=== PATIENT | female | born 1925 | race Caucasian/White ===

== ENCOUNTER 2016-05-16 13:59 | Emergency (ER) | payer BC, OTHER ==
[2016-05-16 14:32] VITALS: BMI 26.8
[2016-05-16] MEDS ORDERED: HYDROmorphone HCL 2 MG TABLET PO ONE (15:02)
[2016-05-16] MEDS ORDERED: HYDROmorphone HCL 2 MG TABLET ONE (15:02)
--- NOTE | 2016-05-16 15:02 | PDOC ---
History of Present Illness - General History Source: Patient Exam Limitations: No Limitations - History of Present Illness Initial Comments: 05/16/16 15:07 The patient is an 89 year old woman, accompanied by his daughter, with a significant past medical history hypertension, hypercholesterolemia, hypothyrodism, congestive heart failure, diabetes mellitus, end-stage renal disease (on hemodialysis on M,W,F) and recent left shoulder stent placement by Vascular Surgeon, Dr. Dino Munguia (approximately 2 weeks ago) who presents to the emergency department via EMS for evaluation of right shoulder pain. Patient states that he fell on her right shoulder, last night while reclining in her chair. She denies head injury and loss of consciousness. Patient describes her pain as sharp in nature, intermittent and exacerbated with minimal movements and tender to the touch with a 10/10 in severity. She denies experiencing any weakness/numbness/tingling sensations down her left upper extremities. No other complaints. She denies chest pain, SOB, dizziness, lightheadedness, or palpitation. She denies headache fever, chills, cough, N/V/D, visual changes, neck pain, dysuria, hematuria, frequency, bowel/bladder incontinence or retention, abdominal pain. She denies other bodily pain or injury. <Yamila Rosa - Last Filed: 05/16/16 15:48> <Telly Gonzalez - Last Filed: 05/17/16 10:07> - General Chief Complaint: Pain Stated Complaint: WEAKNESS Past History <Yamila Roas - Last Filed: 05/16/16 15:48> - Past Medical History Anemia: No Asthma: No Cancer: No Cardiac Disorders: Yes (STENT, DIFIBRILLATOR) CVA: No COPD: No CHF: Yes Dementia: No Diabetes: Yes Dialysis: Yes (M-W-F) GI Disorders: Yes (REFLUX) Disorders: Yes (esrd x 5y, low BP @ HD) HTN: Yes Hypercholesterolemia: Yes Liver Disease: No Suicide Attempt (Hx): No Seizures: No Thyroid Disease: Yes (HYPOTHYROID) - Surgical History Abdominal Surgery: Yes Appendectomy: No Cardiac Surgery: Yes (pacemaker-stent) Cholecystectomy: Yes Lung Surgery: No Neurologic Surgery: No Orthopedic Surgery: No - Immunization History Immunization Up to Date: Yes - Psycho/Social/Smoking Cessation Hx Anxiety: No Suicidal Ideation: No Smoking Status: No Smoking History: Former smoker Years of Tobacco Use: 50 Have you smoked in the past 12 months: No Number of Cigarettes Smoked Daily: 0 If you are a former smoker, when did you quit?: 16 YRS Information on smoking cessation initiated: No Hx Alcohol Use: No Drug/Substance Use Hx: No Substance Use Type: None Hx Substance Use Treatment: No <Telly Gonzalez - Last Filed: 05/17/16 10:07> - Past Medical History Allergies/Adverse Reactions: Allergies Allergy/AdvReac Type Severity Reaction Status Date / Time codeine [Codeine] Allergy Mild Itching Verified 05/16/16 14:26 oxycodone HCl [From Percocet] Allergy Verified 05/16/16 14:26 Home Medications: Ambulatory Orders Levothyroxine [Synthroid -] 100 mcg PO DAILY 10/11/12 Sertraline HCl [Zoloft -] 50 mg PO DAILY 10/11/12 Sevelamer Carbonate [Renvela -] 3 tab PO TID 10/11/12 Pregabalin [Lyrica] 75 mg PO DAILY #0 capsule 02/27/13 Metoprolol Succinate [Toprol XL -] 50 mg PO ASDIR 03/09/15 Midodrine HCl 10 mg PO HS 03/09/15 Acetaminophen [Tylenol .Regular Strength -] 650 mg PO Q6H PRN #0 tablet Midodrine HCl 20 mg PO AM 03/20/16 Multivitamin/Iron/Folic Acid [Daily Vit Formula + Iron Tab] 1 each PO DAILY 10/28 Pantoprazole Sodium [Protonix -] 40 mg PO DAILY #30 tablet.ec 03/23/16 Simethicone [Mylicon -] 80 mg PO Q4H PRN #60 tab.chew 03/23/16 Trauma Specific PMHX - Complaint Specific PMHX Arthritis: No <Telly Gonzalez - Last Filed: 05/17/16 10:07> Review of Systems - Review of Systems Able to Perform ROS?: Yes Comments:: 05/16/16 15:07 GENERAL/CONSTITUTIONAL: No fever or chills. No weakness. HEAD, EYES, EARS, NOSE AND THROAT: No change in vision. No ear pain or discharge. No sore throat. CARDIOVASCULAR: No chest pain or shortness of breath. RESPIRATORY: No cough, wheezing, or hemoptysis. GASTROINTESTINAL: No nausea, vomiting, diarrhea or constipation. GENITOURINARY: No dysuria, frequency, or change in urination. MUSCULOSKELETAL: Yes: +Left shoulder/arm pain. No neck or back pain. SKIN: No rash NEUROLOGIC: No headache, vertigo, loss of consciousness, or change in strength/ sensation. ENDOCRINE: No increased thirst. No abnormal weight change. HEMATOLOGIC/LYMPHATIC: No anemia, easy bleeding, or history of blood clots. ALLERGIC/IMMUNOLOGIC: No hives or skin allergy. <Yamila Rosa - Last Filed: 05/16/16 15:48> *Physical Exam - Vital Signs Last Vital Signs Temp Pulse Resp BP Pulse Ox 98.7 F 83 20 144/70 100 05/16/16 14:22 05/16/16 14:22 05/16/16 14:22 05/16/16 14:22 05/16/16 14:22 - Physical Exam Comments: 05/16/16 15:07 GENERAL: Awake, alert, and fully oriented, in no acute distress HEAD: No signs of trauma EYES: PERRLA, EOMI, sclera anicteric, conjunctiva clear ENT: Auricles normal inspection, hearing grossly normal, nares patent, oropharynx clear without exudates. Moist mucosa NECK: Normal ROM, supple, no lymphadenopathy, JVD, or masses LUNGS: Breath sounds equal, clear to auscultation bilaterally. No wheezes, and no crackles HEART: Regular rate and rhythm, normal S1 and S2, no murmurs, rubs or gallops ABDOMEN: Soft, nontender, normoactive bowel sounds. No guarding, no rebound. No masses EXTREMITIES: Normal range of motion, no edema. No clubbing or cyanosis. No cords, erythema, or tenderness NEUROLOGICAL: Cranial nerves II through XII grossly intact. Normal speech <Yamila Rosa - Last Filed: 05/16/16 15:48> - Vital Signs Last Vital Signs Temp Pulse Resp BP Pulse Ox 98.7 F 83 20 144/70 100 05/16/16 14:22 05/16/16 14:22 05/16/16 14:22 05/16/16 14:22 05/16/16 14:22 <Telly Gonzalez - Last Filed: 05/17/16 10:07> ED Treatment Course - RADIOLOGY Radiograph Interpretation: 05/16/16 15:47 EXAM: RAD/SHOULDER-W/TRANS-LEFT IMPRESSION: Views reveal a left axillary vascular graft/stent, large heart, unfolded aorta and coarse lung changes. There is no sign of an acute fracture, subluxation or bone destruction. There is old trauma by the AC joint. The fragments appear well corticated. If symptoms persist or there is decreased range of motion then further imaging and orthopedic consultation may be of help. <Yamila Rosa - Last Filed: 05/16/16 15:48> *DC/Admit/Observation/Transfer - Attestations Scribe Attestion: 05/16/16 15:07 Documentation prepared by Yamila Rosa, acting as rn medical surgical for Telly Gonzalez MD. <Yamila Rosa - Last Filed: 05/16/16 15:48> - Discharge Dispostion Admit: No <Telly Gonzalez - Last Filed: 05/17/16 10:07> Diagnosis at time of Disposition: Left shoulder pain Qualifiers: Chronicity: acute Qualified Code(s): M25.512 - Pain in left shoulder Tear of left rotator cuff Qualifiers: Rotator cuff tear extent: unspecified tear extent Qualified Code(s): M75.102 - Unspecified rotator cuff tear or rupture of left shoulder, not specified as traumatic - Discharge Dispostion Disposition: HOME Condition at time of disposition: Stable - Referrals Referrals: Aung Mondragon MD [Primary Care Provider] - - Patient Instructions Printed Discharge Instructions: DI for Shoulder Pain Additional Instructions: Follow up Dr. Munguia tomorrow for shunt evaluation, will refer to an Orthopedist..
--- NOTE | 2016-05-16 20:25 | PDOC ---
*Physical Exam - Vital Signs Last Vital Signs Temp Pulse Resp BP Pulse Ox 98.7 F 83 20 144/70 100 05/16/16 14:22 05/16/16 14:22 05/16/16 14:22 05/16/16 14:22 05/16/16 14:22 ED Treatment Course - Medications Given in the ED: ED Medications Discontinued Medications Generic Name Dose Route Start Last Admin Trade Name Ldq PRN Reason Stop Dose Admin Hydromorphone HCl 1 mg 05/16/16 15:02 05/16/16 15:20 Dilaudid - PO 05/16/16 15:03 1 mg ONCE ONE Administration *DC/Admit/Observation/Transfer Diagnosis at time of Disposition: Left shoulder pain Qualifiers: Chronicity: acute Qualified Code(s): M25.512 - Pain in left shoulder - Discharge Dispostion Disposition: HOME Condition at time of disposition: Stable Admit: No - Referrals Referrals: Aung Mondragon MD [Primary Care Provider] - - Patient Instructions Printed Discharge Instructions: DI for Shoulder Pain - Post Discharge Activity
[2016-05-16 20:34] VITALS: BP 132/80; PULSE 87; TEMP 98.3
== END 2016-05-16 20:34 | disposition home or self-care (01) ==
LOC: JER 13:59
DX: M75.102 Unspecified rotator cuff tear or rupture of left shoulder, not specified as traumatic (principal); W07.XXXA Fall from chair, initial encounter; I10 Essential (primary) hypertension; E78.00 Pure hypercholesterolemia, unspecified; E03.9 Hypothyroidism, unspecified; I13.2 Hypertensive heart and chronic kidney disease with heart failure and with stage 5 chronic kidney disease, or end stage renal disease; N18.6 End stage renal disease; I50.9 Heart failure, unspecified; N17.8 Other acute kidney failure; Z99.2 Dependence on renal dialysis; E11.9 Type 2 diabetes mellitus without complications; Z79.84 Long term (current) use of oral hypoglycemic drugs; Z95.5 Presence of coronary angioplasty implant and graft; Z95.810 Presence of automatic (implantable) cardiac defibrillator; Z98.62 Peripheral vascular angioplasty status
CPT/HCPCS: 73030-TC-LT; 93971; 99283-25

== ENCOUNTER 2016-07-11 09:31 | Emergency (ER) | payer OTHER ==
[2016-07-11 09:38] VITALS: BP 122/75; PULSE 108; TEMP 98.6; BMI 26.4
--- NOTE | 2016-07-11 09:52 | PDOC ---
History of Present Illness - General History Source: Patient Exam Limitations: No Limitations - History of Present Illness Initial Comments: 07/11/16 09:52 Patient is a 89 year old female with pmhx of HTN, HLD, ESRD (on HD MWF) who presents to the ED with nasal congestion for 1 week and cough for 3 days. She reports fever since . Patient notes that the cough is exacerbated when lying down. She notes that her HD doctor saw her on Monday and prescribed her Anarythromiosin syrup for the cough that provided mild relief. <Jannette Pittman - Last Filed: 07/11/16 09:52> <Billy Adrian - Last Filed: 07/11/16 10:12> - General Chief Complaint: Shortness of Breath Stated Complaint: CONGESTED, DIZZINESS Time Seen by Provider: 07/11/16 09:43 Past History <Jannette Pittman - Last Filed: 07/11/16 09:52> - Past Medical History Anemia: No Asthma: No Cancer: No Cardiac Disorders: Yes (STENT, DIFIBRILLATOR) CVA: No COPD: No CHF: Yes Dementia: No Diabetes: Yes Dialysis: Yes (M-W-F lt arm fistula) GI Disorders: Yes (REFLUX) Disorders: Yes (esrd x 5y, low BP @ HD) HTN: Yes Hypercholesterolemia: Yes Liver Disease: No Suicide Attempt (Hx): No Seizures: No Thyroid Disease: Yes (HYPOTHYROID) - Surgical History Abdominal Surgery: Yes Appendectomy: No Cardiac Surgery: Yes (pacemaker-stent) Cholecystectomy: Yes Lung Surgery: No Neurologic Surgery: No Orthopedic Surgery: No - Immunization History Immunization Up to Date: Yes - Psycho/Social/Smoking Cessation Hx Anxiety: No Suicidal Ideation: No Smoking Status: No Smoking History: Former smoker Years of Tobacco Use: 50 Have you smoked in the past 12 months: No Number of Cigarettes Smoked Daily: 0 If you are a former smoker, when did you quit?: 16 YRS Information on smoking cessation initiated: No Hx Alcohol Use: No Drug/Substance Use Hx: No Substance Use Type: None Hx Substance Use Treatment: No <Billy Adrian - Last Filed: 07/11/16 10:12> - Past Medical History Allergies/Adverse Reactions: Allergies Allergy/AdvReac Type Severity Reaction Status Date / Time codeine [Codeine] Allergy Mild Itching Verified 07/11/16 09:32 oxycodone HCl [From Percocet] Allergy Verified 07/11/16 09:32 Home Medications: Ambulatory Orders Levothyroxine [Synthroid -] 100 mcg PO DAILY 10/11/12 Sertraline HCl [Zoloft -] 50 mg PO DAILY 10/11/12 Sevelamer Carbonate [Renvela -] 3 tab PO TID 10/11/12 Pregabalin [Lyrica] 75 mg PO DAILY #0 capsule 02/27/13 Metoprolol Succinate [Toprol XL -] 50 mg PO ASDIR 03/09/15 Midodrine HCl 10 mg PO HS 03/09/15 Acetaminophen [Tylenol .Regular Strength -] 650 mg PO Q6H PRN #0 tablet Midodrine HCl 20 mg PO AM 03/20/16 Multivitamin/Iron/Folic Acid [Daily Vitamin Formula-Iron Tab] 1 each PO DAILY Pantoprazole Sodium [Protonix -] 40 mg PO DAILY #30 tablet.ec 03/23/16 Simethicone [Mylicon -] 80 mg PO Q4H PRN #60 tab.chew 03/23/16 Respiratory Specific PMHX - Complaint Specific PMHX Angina: No <Billy Adrian - Last Filed: 07/11/16 10:12> Review of Systems - Review of Systems Able to Perform ROS?: Yes Comments:: 07/11/16 09:53 General: +fever HEENT: +nasal congestion Absent: runny nose, throat pain Respiratory: +cough Absent: wheezing, SOB <Jannette Pittman - Last Filed: 07/11/16 09:52> *Physical Exam - Vital Signs Last Vital Signs Temp Pulse Resp BP Pulse Ox 98.6 F 108 H 24 122/75 95 07/11/16 09:33 07/11/16 09:33 07/11/16 09:33 07/11/16 09:33 07/11/16 09:33 <Jannette Pittman - Last Filed: 07/11/16 09:52> - Vital Signs Last Vital Signs Temp Pulse Resp BP Pulse Ox 98.6 F 108 H 24 122/75 95 07/11/16 09:33 07/11/16 09:33 07/11/16 09:33 07/11/16 09:33 07/11/16 09:33 - Physical Exam General Appearance: Yes: Nourished, Appropriately Dressed. No: Apparent Distress HEENT: positive: Normal ENT Inspection. negative: Nasal Congestion, Rhinorrhea Neck: positive: Supple. negative: Tender Respiratory/Chest: positive: Lungs Clear (good b/l air entry), Rhonchi. negative: Chest Tender, Respiratory Distress, Accessory Muscle Use Cardiovascular: positive: Regular Rhythm, Regular Rate, Tachycardia Gastrointestinal/Abdominal: positive: Normal Bowel Sounds, Soft Neurologic: positive: Fully Oriented, Alert, Normal Mood/Affect, Normal Response , Motor Strength 5/5 <Billy Adrian - Last Filed: 07/11/16 10:12> ED Treatment Course - RADIOLOGY Radiology Studies Ordered: Category Date Time Status CHEST PA & LAT [RAD] Stat Radiology 07/11/16 09:47 Ordered <Billy Adrian - Last Filed: 07/11/16 10:12> Progress Note - Progress Note Progress Note: post viral syndrome cough cxr symptomatic treatment cxr no i/e or pvc d/c home <Billy Adrian - Last Filed: 07/11/16 10:12> *DC/Admit/Observation/Transfer - Attestations Scribe Attestion: 07/11/16 09:53 Documentation prepared by FÉLIX Foote, acting as medical payment poster for Billy Adrian MD/. <Jannette Pittman - Last Filed: 07/11/16 09:52> <Billy Adrian - Last Filed: 07/11/16 10:12> Diagnosis at time of Disposition: Post-viral cough syndrome - Discharge Dispostion Disposition: HOME Condition at time of disposition: Stable - Patient Instructions Additional Instructions: CONTINUE MEDICATIONS PRESCRIBED BENADRYL 25 MG AT BED TIME COLD MIST HUMIDIFIER A BED SIDE CONTINUE DIALYSIS PLANNED SEE YOUR DOCTOR THIS WEEK RETURN IF WORSENING OR NEW SYMPTOMS
[2016-07-12] MEDS ORDERED: HEPARIN NA (PORCINE) 5,000 UNITS/ML 1ML VIAL SQ SCH (22:00)
== END 2016-07-11 10:36 | disposition home or self-care (01) ==
LOC: JER 09:31
DX: B34.9 Viral infection, unspecified (principal); I25.10 Atherosclerotic heart disease of native coronary artery without angina pectoris; I12.0 Hypertensive chronic kidney disease with stage 5 chronic kidney disease or end stage renal disease; N18.6 End stage renal disease; N17.8 Other acute kidney failure; Z99.2 Dependence on renal dialysis; Z95.5 Presence of coronary angioplasty implant and graft; E11.9 Type 2 diabetes mellitus without complications; E03.9 Hypothyroidism, unspecified; E78.00 Pure hypercholesterolemia, unspecified; Z95.810 Presence of automatic (implantable) cardiac defibrillator
CPT/HCPCS: 71010-TC; 99282-25

== ENCOUNTER 2016-07-11 19:31 | Inpatient (IN) | payer OTHER ==
--- NOTE | 2016-07-11 20:41 | PDOC ---
History of Present Illness <Nahomy Meredith - Last Filed: 07/11/16 22:56> - History of Present Illness Initial Comments: 07/11/16 20:43 Patient is a 89 year old female with pmhx of CHF, HTN, HLD, ESRD (on HD MWF) who has returned to the ED from this morning with persistent cough. Patient was seen in the ED at 10AM this morning for fever, nasal congestion, and cough for the past three days. The patient was discharged and she returned because her cough has been persisting. She also endorses some muscle aches. The patient was found febrile at 100.8 in the ED. Denies nausea, vomiting, diarrhea, and chest pain. The patient saw her primary four days ago and was given anarythromiosin syrup which provided some relief. PMD: Aung Mondragon MD City Comptroller: Shelli Bacon MD Supervisor [place]ble: Ayesha Kamara MD <Yuki Damico - Last Filed: 07/11/16 23:35> - General Chief Complaint: Shortness of Breath Stated Complaint: SHORTNESS OF BREATH Time Seen by Provider: 07/11/16 19:55 Past History - Past Medical History Anemia: No Asthma: No Cancer: No Cardiac Disorders: Yes (STENT, DIFIBRILLATOR) CVA: No COPD: No CHF: Yes Dementia: No Diabetes: Yes Dialysis: Yes (M-W-F lt arm fistula) GI Disorders: Yes (REFLUX) Disorders: Yes (esrd x 5y, low BP @ HD) HTN: Yes Hypercholesterolemia: Yes Liver Disease: No Suicide Attempt (Hx): No Seizures: No Thyroid Disease: Yes (HYPOTHYROID) - Surgical History Abdominal Surgery: Yes Appendectomy: No Cardiac Surgery: Yes (pacemaker-stent) Cholecystectomy: Yes Lung Surgery: No Neurologic Surgery: No Orthopedic Surgery: No - Immunization History Immunization Up to Date: Yes - Psycho/Social/Smoking Cessation Hx Anxiety: No Suicidal Ideation: No Smoking Status: No Smoking History: Former smoker Years of Tobacco Use: 50 Have you smoked in the past 12 months: No Number of Cigarettes Smoked Daily: 0 If you are a former smoker, when did you quit?: 25 years Information on smoking cessation initiated: No Hx Alcohol Use: No Drug/Substance Use Hx: No Substance Use Type: None Hx Substance Use Treatment: No <Nahomy Meredith - Last Filed: 07/11/16 22:56> <MargauxYuki jimenez - Last Filed: 07/11/16 23:35> - Past Medical History Allergies/Adverse Reactions: Allergies Allergy/AdvReac Type Severity Reaction Status Date / Time codeine [Codeine] Allergy Mild Itching Verified 07/11/16 09:32 oxycodone HCl [From Percocet] Allergy Verified 07/11/16 09:32 Home Medications: Ambulatory Orders Levothyroxine [Synthroid -] 100 mcg PO DAILY 10/11/12 Sertraline HCl [Zoloft -] 50 mg PO DAILY 10/11/12 Sevelamer Carbonate [Renvela -] 3 tab PO TID 10/11/12 Pregabalin [Lyrica] 75 mg PO DAILY #0 capsule 02/27/13 Metoprolol Succinate [Toprol XL -] 50 mg PO ASDIR 03/09/15 Midodrine HCl 10 mg PO HS 03/09/15 Acetaminophen [Tylenol .Regular Strength -] 650 mg PO Q6H PRN #0 tablet Midodrine HCl 20 mg PO AM 03/20/16 Multivitamin/Iron/Folic Acid [Daily Vitamin Formula-Iron Tab] 1 each PO DAILY Pantoprazole Sodium [Protonix -] 40 mg PO DAILY #30 tablet.ec 03/23/16 Simethicone [Mylicon -] 80 mg PO Q4H PRN #60 tab.chew 03/23/16 Respiratory Specific PMHX - Complaint Specific PMHX Angina: No <MasoudAjaypam Machadoh - Last Filed: 07/11/16 22:56> Review of Systems - Review of Systems Comments:: 07/11/16 20:46 CONSTITUTIONAL: Present: fever Absent: chills, diaphoresis, generalized weakness, malaise, loss of appetite HEENT: Present: rhinorrhea nasal congestion Absent: throat pain, throat swelling, difficulty swallowing, mouth swelling, ear pain, eye pain, visual changes CARDIOVASCULAR: Absent: chest pain, syncope, palpitations, irregular heart rate, lightheadedness , peripheral edema RESPIRATORY: Present: cough Absent: shortness of breath, dyspnea with exertion, orthopnea, wheezing, stridor , hemoptysis GASTROINTESTINAL: Absent: abdominal pain, abdominal distension, nausea, vomiting, diarrhea, constipation, melena, hematochezia GENITOURINARY: Absent: dysuria, frequency, urgency, hesitancy, hematuria, flank pain, genital pain MUSCULOSKELETAL: Absent: myalgia, arthralgia, joint swelling SKIN: Absent: rash, itching, pallor HEMATOLOGIC/IMMUNOLOGIC: Absent: easy bleeding, easy bruising, lymphadenopathy, frequent infections ENDOCRINE: Absent: unexplained weight gain, unexplained weight loss, heat intolerance, cold intolerance NEUROLOGIC: Absent: headache, focal weakness or paresthesia, dizziness, unsteady gait, seizure, mental status changes, bladder or bowel incontinence. PSYCHIATRIC: Absent: anxiety, depression, suicidal or homicidal ideation, hallucinations <Yuki Damico - Last Filed: 07/11/16 23:35> *Physical Exam - Vital Signs Last Vital Signs Temp Pulse Resp BP Pulse Ox 100.8 F H 98 H 24 123/87 100 07/11/16 19:51 07/11/16 19:51 07/11/16 19:51 07/11/16 19:51 07/11/16 20:38 <Nahomy Meredith - Last Filed: 07/11/16 22:56> - Vital Signs Last Vital Signs Temp Pulse Resp BP Pulse Ox 100.8 F H 98 H 24 123/87 100 07/11/16 19:51 07/11/16 19:51 07/11/16 19:51 07/11/16 19:51 07/11/16 20:38 - Physical Exam Comments: 07/11/16 20:49 GENERAL: Well developed, well nourished. Awake and alert. No acute distress. HEENT: Normocephalic, atraumatic. PERRLA, EOMI. No conjunctival pallor. Sclera are non- icteric. Moist mucous membranes. Oropharynx is clear. NECK: Supple. Full ROM. No JVD. Carotid pulses 2+ and symmetric, without bruits. No thyromegaly. No lymphadenopathy. CARDIOVASCULAR: Regular rate and rhythm. No murmurs, rubs, or gallops. Distal pulses are 2+ and symmetric. PULMONARY: No evidence of respiratory distress. Rhonchorous breath sounds. No wheezing or rales. ABDOMINAL: Soft. Non-tender. Non-distended. No rebound or guarding. No organomegaly. Normoactive bowel sounds. MUSCULOSKELETAL: Normal range of motion at all joints. No bony deformities or tenderness. No CVA tenderness. EXTREMITIES: No cyanosis. No clubbing. No edema. No calf tenderness. SKIN: Warm and dry. Normal capillary refill. No rashes. No jaundice. NEUROLOGICAL: Alert, awake, appropriate. Cranial nerves 2-12 intact. Normal speech. PSYCHIATRIC: Cooperative. Good eye contact. Appropriate mood and affect. <Yuki Damico - Last Filed: 07/11/16 23:35> Heart Score/ECG Review #1 07/11/16 23:33 Sinus rhythm with 1st degree AV block with occasional premature ventricular complexes Left ventricular hypertrophy with repolarization abnormality Cannot rule out Septal infarct, age undetermined Abnormal ECG <Yuki Damico - Last Filed: 07/11/16 23:35> ED Treatment Course - LABORATORY CBC & Chemistry Diagram: 07/11/16 20:46 07/11/16 20:46 <Nahomy Meredith - Last Filed: 07/11/16 22:56> - LABORATORY CBC & Chemistry Diagram: 07/11/16 20:46 07/11/16 20:46 <Yuki Damico - Last Filed: 07/11/16 23:35> Medical Decision Making - Medical Decision Making 07/11/16 22:57 89 yo female seen earlier today for cough,nasal congestion and fever was BIBA after her dialysis for weakness ,fever and cough. Pt was hypoxic saturating only at 88% room air . Fever 100.8 -influenza A POSITIVE -pt placed on 3 L nasal cannula -she did complete her dialysis session,review of her chemistry shows potassium is normal -pt has copious phlegm and persistent coughing and appears uncomfortable -spoke w Dr Dariela Bacon and pt will be admitted due to her need for oxygen supplantation -pt started on tamiflu <Nahomy Meredith - Last Filed: 07/11/16 22:56> *DC/Admit/Observation/Transfer - Discharge Dispostion Admit: Yes <Nahomy Meredith - Last Filed: 07/11/16 22:56> - Attestations Scribe Attestion: 07/11/16 20:51 Documentation prepared by Yuki Damico, acting as medical records field technician for Nahomy Meredith MD. <Yuki Damico - Last Filed: 07/11/16 23:35> Diagnosis at time of Disposition: ESRD on hemodialysis, Troponin level elevated, Influenza A, Hypoxic Fever Qualifiers: Fever type: other Qualified Code(s): R50.81 - Fever presenting with conditions classified elsewhere - Referrals Referrals: Aung Mondragon MD [Primary Care Provider] -
[2016-07-11 21:24] LABS: BASOPHIL 0.3 % (0-2.0); MEAN CELL VOLUME 90.7 fl (80-96); MEAN PLT VOLUME 9.8 fl (7.5-11.1); NEUTROPHILS 86.2 % (42.8-82.8); PLATELET COUNT 94 K/MM3 (134-434); RDW 15.1 % (11.6-15.6); WHITE BLOOD COUNT 5.5 K/mm3 (4.0-10.0)
[2016-07-11 21:50] LABS: ALBUMIN 3.6 g/dl (3.4-5.0); BILIRUBIN,TOTAL 0.6 mg/dL (0.2-1.0); TOT PROT 7.4 g/dl (6.4-8.2)
[2016-07-11] MEDS ORDERED: OSELTAMIVIR PHOSPHATE 75 MG CAPSULE PO ONE (21:51)
[2016-07-11 21:53] LABS: TROPONIN I 0.18 ng/ml (0.00-0.05)
[2016-07-11] MEDS ORDERED: OSELTAMIVIR PHOSPHATE 75 MG CAPSULE ONE (22:02)
[2016-07-11] MEDS ORDERED: SIMETHICONE 80 MG TAB.CHEW (FP) PO PRN (23:32)
[2016-07-12] MEDS ORDERED: SEVELAMER CARBONATE 800 MG TAB (FP) PO SCH (06:00)
[2016-07-12] MEDS ORDERED: ALBUTEROL SO4 2.5/IPRATROPIUM 0.5 INH SOL 3 ML VIAL.NEB. NEB ONE (06:53)
[2016-07-12] MEDS: ALBUTEROL SO4 2.5/IPRATROPIUM 0.5 INH SOL 3 ML VIAL.NEB. NEB PRN (06:56)
[2016-07-12] MEDS ORDERED: LEVOTHYROXINE NA 100 MCG TABLET (FP) PO SCH (07:00)
--- NOTE | 2016-07-12 09:09 | HP ---
Admitting History and Physical - Primary Care Physician PCP: Aung Mondragon - Admission Chief Complaint: cough and sob History of Present Illness: 89 yrs old female known by me from her previous admissions here admitted for SOB and cough for about 1 week- had chills and cough productive of greenish sputum. She went to the ER yesterday morning and was discharged on cough syrup after CXR appeared to be clear . But she felt worse and returned back to the ER , had a low grade fever and found to be positive for Influenza A. She has h/o ESRD on HD-- denies sick contacts. 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: Peripheral Neuropathy Cardiovascular: Yes: CAD, CHF, HTN, Hyperlipdemia, Other (S/P PCI/stent, chronic diastolic CHF) Gastrointestinal: Yes: Constipation, Gastritis, GERD, Peptic Ulcer Disease Renal/: Yes: Renal Failure, Hemodialysis Heme/Onc: Yes: Anemia Musculoskeletal: Yes: Osteoarthritis Endocrine: Yes: Diabetes Mellitus, Hypothyroidism - Past Surgical History Past Surgical History: Yes: AICD, AV Fistula/Graft, Cholecystectomy, Stent - Smoking History Smoking history: Former smoker Have you smoked in the past 12 months: No Aproximately how many cigarettes per day: 0 If you are a former smoker, when did you quit?: 25 years - Alcohol/Substance Use Hx Alcohol Use: No History of Substance Use: reports: None - Social History ADL: Independent 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 History of Recent Travel: No Home Medications - Allergies Allergies/Adverse Reactions: Allergies Allergy/AdvReac Type Severity Reaction Status Date / Time codeine [Codeine] Allergy Mild Itching Verified 07/11/16 09:32 oxycodone HCl [From Percocet] Allergy Verified 07/11/16 09:32 - Home Medications Home Medications: Ambulatory Orders Levothyroxine [Synthroid -] 100 mcg PO DAILY 10/11/12 Sevelamer Carbonate [Renvela -] 3 tab PO TID 10/11/12 Pregabalin [Lyrica] 75 mg PO DAILY #0 capsule 02/27/13 Metoprolol Succinate [Toprol XL -] 50 mg PO ASDIR 03/09/15 Acetaminophen [Tylenol .Regular Strength -] 650 mg PO Q6H PRN #0 tablet Midodrine HCl 20 mg PO AM 03/20/16 Multivitamin/Iron/Folic Acid [Daily Vitamin Formula-Iron Tab] 1 each PO DAILY Pantoprazole Sodium [Protonix -] 40 mg PO DAILY #30 tablet.ec 03/23/16 Simethicone [Mylicon -] 80 mg PO Q4H PRN #60 tab.chew 03/23/16 Midodrine HCl 10 mg PO HS 07/12/16 Sertraline HCl [Zoloft -] 50 mg PO DAILY 07/12/16 Review of Systems - Review of Systems Constitutional: reports: Chills, Fever, Weakness. denies: Loss of Appetite Cardiovascular: reports: Shortness of Breath. denies: Chest Pain Respiratory: reports: Cough Physical Examination Vital Signs: Vital Signs Temperature 97.5 F L 07/12/16 07:40 Pulse Rate 75 07/12/16 07:40 Respiratory Rate 16 07/12/16 07:40 Blood Pressure 101/57 07/12/16 07:40 O2 Sat by Pulse Oximetry (%) 99 07/12/16 08:27 Constitutional: Yes: No Distress, Calm Cardiovascular: Yes: Regular Rate and Rhythm Respiratory: Yes: Diminished, Rhonchi Gastrointestinal: Yes: Normal Bowel Sounds, Soft. No: Distention, Tenderness Edema: No Psychiatric: Yes: Alert, Oriented Labs: Laboratory Results - last 24 hr 07/11/16 07/11/16 07/11/16 20:46 20:46 20:46 WBC 5.5 RBC 3.71 Hgb 11.1 Hct 33.6 MCV 90.7 MCHC 33.0 RDW 15.1 D Plt Count 94 L MPV 9.8 Neutrophils % 86.2 H D Lymphocytes % 5.6 L D Monocytes % 7.9 Eosinophils % 0.0 D Basophils % 0.3 Sodium 139 Potassium 4.3 Chloride 101 Carbon Dioxide 27 Anion Gap 11 BUN 41 H D Creatinine 5.0 H D Creat Clearance w eGFR 8.17 Random Glucose 162 H D Lactic Acid Calcium 9.0 Total Bilirubin 0.6 AST 40 H ALT 35 Alkaline Phosphatase 253 H Creatine Kinase 59 Troponin I 0.18 H Total Protein 7.4 Albumin 3.6 07/11/16 07/12/16 21:40 11:35 WBC RBC Hgb Hct MCV MCHC RDW Plt Count MPV Neutrophils % Lymphocytes % Monocytes % Eosinophils % Basophils % Sodium Potassium Chloride Carbon Dioxide Anion Gap BUN Creatinine Creat Clearance w eGFR Random Glucose Lactic Acid 1.394 Calcium Total Bilirubin AST ALT Alkaline Phosphatase Creatine Kinase 55 Troponin I 0.16 H Total Protein Albumin Imaging - Results Chest X-ray: Image Reviewed EKG: Image Reviewed (NSR) Problem List - Problems (1) ESRD on hemodialysis Code(s): N18.6 - END STAGE RENAL DISEASE Z99.2 - DEPENDENCE ON RENAL DIALYSIS (2) Fever Code(s): R50.9 - FEVER, UNSPECIFIED Qualifiers: Fever type: other Qualified Code(s): R50.81 - Fever presenting with conditions classified elsewhere (3) Influenza A Code(s): J10.1 - FLU DUE TO OTH IDENT INFLUENZA VIRUS W OTH RESP MANIFEST (4) Troponin level elevated Code(s): R79.89 - OTHER SPECIFIED ABNORMAL FINDINGS OF BLOOD CHEMISTRY Assessment/Plan PLAN Pt started on Tamiflu -renal dose Nebs standing Elevated troponins due to renal disease, denies any chest pain Pt's O2 sat was initially 90 % on room air and came up to 96% on 3 liters. Continue with meds DVT prophylaxis - Heparin sc
[2016-07-12] MEDS: MIDODRINE HCL 5 MG TABLET PO SCH ×2 (09:51→21:46)
[2016-07-12] MEDS: PANTOPRAZOLE 40 MG TABLET (FP) PO SCH (09:52)
[2016-07-12] MEDS: SERTRALINE HCL 50 MG TABLET (FP) PO SCH (09:52)
[2016-07-12] MEDS ORDERED: guaiFENesin 200 MG/10 ML 10 ML UNIT-DOSE CUPS ONE ×2 (09:57→17:32)
[2016-07-12] MEDS ORDERED: PREGABALIN 50 MG CAPSULE ONE (09:58)
[2016-07-12] MEDS ORDERED: PREGABALIN 25 MG CAPSULE ONE (09:58)
[2016-07-12] MEDS ORDERED: OSELTAMIVIR PHOSPHATE 30 MG CAPSULE PO SCH (10:00)
[2016-07-12] MEDS: guaiFENesin 200 MG/10 ML 10 ML UNIT-DOSE CUPS PO PRN ×2 (10:03→17:35)
[2016-07-12] MEDS: PREGABALIN 25 MG CAPSULE PO SCH (10:03)
[2016-07-12] MEDS: METOPROLOL SUCCINATE 50 MG TAB.SR.24H (FP) PO SCH (10:03)
[2016-07-12 11:20] VITALS: BMI 26.4
[2016-07-12 12:12] LABS: TROPONIN I 0.16 ng/ml (0.00-0.05)
[2016-07-12] MEDS: SEVELAMER CARBONATE 800 MG TAB (FP) PO SCH ×2 (12:26→17:35)
--- NOTE | 2016-07-12 12:58 | CONSULT ---
Consult Consult Specialty:: Infectious Disease Referred by:: Dr. Milian Reason for Consultation:: Influenza A - History of Present Illness Chief Complaint: [facility] shortness of breath weakness History of Present Illness: 89F with extensive PMH including CAD s/p stent and PPM, diastolic CHF ESRD on HD MWF HTN HLD hypothyroidism former smoker who presented to the ED yesterday morning for cough and shortness of breath. She was worked up and subsequently discharged from the ED. She then went to dialysis and was sent here from the dialysis center for worsening cough and weakness associated with shortness of breath. She was found to be positive for influenza A on nasal swab. She denies fevers but had a low grade fever of 100.8 in the ED. She endorses cough chills shortness of breath weakness and muscle aches. Her symptoms started about a week ago. She initially had a productive cough with dark yellow sputum but now no longer has any sputum production. She denies chest pain nausea vomiting diarrhea constipation hematuria or dysuria. She does not have any pet nor has she traveled recently. She denies sick contacts and lives at home alone. She states she did have her flu vaccination. 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: Yes: Peripheral Neuropathy Cardio/Vascular: Yes: CAD, CHF, HTN, Hyperlipdemia, Other (S/P PCI/stent, chronic diastolic CHF) Gastrointestinal: Yes: Constipation, Gastritis, GERD, Peptic Ulcer Disease Renal/: Yes: Renal Failure, Hemodialysis Musculoskeletal: Yes: Osteoarthritis Endocrine: Yes: Diabetes Mellitus, Hypothyroidism - Past Surgical History Past Surgical History: Yes: AICD, AV Fistula/Graft, Cholecystectomy, Stent - Alcohol/Substance Use Hx Alcohol Use: No History of Substance Use: reports: None - Smoking History Smoking history: Former smoker Have you smoked in the past 12 months: No Aproximately how many cigarettes per day: 0 If you are a former smoker, when did you quit?: 25 years - Social History ADL: Independent 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 History of Recent Travel: No Home Medications - Allergies Allergies/Adverse Reactions: Allergies Allergy/AdvReac Type Severity Reaction Status Date / Time codeine [Codeine] Allergy Mild Itching Verified 07/11/16 09:32 oxycodone HCl [From Percocet] Allergy Verified 07/11/16 09:32 - Home Medications Home Medications: Ambulatory Orders Levothyroxine [Synthroid -] 100 mcg PO DAILY 10/11/12 Sevelamer Carbonate [Renvela -] 3 tab PO TID 10/11/12 Pregabalin [Lyrica] 75 mg PO DAILY #0 capsule 02/27/13 Metoprolol Succinate [Toprol XL -] 50 mg PO ASDIR 03/09/15 Acetaminophen [Tylenol .Regular Strength -] 650 mg PO Q6H PRN #0 tablet Midodrine HCl 20 mg PO AM 03/20/16 Multivitamin/Iron/Folic Acid [Daily Vitamin Formula-Iron Tab] 1 each PO DAILY Pantoprazole Sodium [Protonix -] 40 mg PO DAILY #30 tablet.ec 03/23/16 Simethicone [Mylicon -] 80 mg PO Q4H PRN #60 tab.chew 03/23/16 Midodrine HCl 10 mg PO HS 07/12/16 Sertraline HCl [Zoloft -] 50 mg PO DAILY 07/12/16 Review of Systems - Review of Systems Constitutional: reports: Chills, Fever, Weakness Eyes: reports: No Symptoms HENT: reports: No Symptoms Neck: reports: No Symptoms Cardiovascular: reports: No Symptoms Respiratory: reports: SOB Gastrointestinal: reports: No Symptoms Genitourinary: reports: No Symptoms Musculoskeletal: reports: Muscle Pain Neurological: reports: Numbness, Parasthesia Endocrine: reports: No Symptoms Hematology/Lymphatic: reports: No Symptoms Psychiatric: reports: No Symptoms Physical Exam Vital Signs: Vital Signs Temperature 97.5 F L 07/12/16 07:40 Pulse Rate 80 07/12/16 10:30 Respiratory Rate 18 07/12/16 10:30 Blood Pressure 102/58 07/12/16 10:30 O2 Sat by Pulse Oximetry (%) 9 L 07/12/16 10:30 Constitutional: Yes: Well Nourished, No Distress, Other (tired appearing) HENT: Yes: Atraumatic, Normocephalic Neck: Yes: Supple, Trachea Midline Cardiovascular: Yes: Regular Rate and Rhythm, S1, S2 Respiratory: Yes: Other (coarse breath sounds bilaterally with congestion) Gastrointestinal: Yes: Normal Bowel Sounds, Soft. No: Tenderness Edema: No Neurological: Yes: Alert (AAOX3), Oriented Psychiatric: Yes: Alert, Oriented Imaging - Results Chest X-ray: Report Reviewed, Image Reviewed Problem List - Problems (1) ESRD on hemodialysis Code(s): N18.6 - END STAGE RENAL DISEASE Z99.2 - DEPENDENCE ON RENAL DIALYSIS (2) Fever Code(s): R50.9 - FEVER, UNSPECIFIED Qualifiers: Fever type: other Qualified Code(s): R50.81 - Fever presenting with conditions classified elsewhere (3) Hypoxic Code(s): R09.02 - HYPOXEMIA (4) Influenza A Code(s): J10.1 - FLU DUE TO OTH IDENT INFLUENZA VIRUS W OTH RESP MANIFEST (5) GERD (gastroesophageal reflux disease) Code(s): K21.9 - GASTRO-ESOPHAGEAL REFLUX DISEASE WITHOUT ESOPHAGITIS Qualifiers: Esophagitis presence: esophagitis presence not specified Qualified Code(s): K21.9 - Gastro-esophageal reflux disease without esophagitis (6) Generalized weakness Code(s): R53.1 - WEAKNESS (7) HTN (hypertension) Code(s): I10 - ESSENTIAL (PRIMARY) HYPERTENSION Qualifiers: Hypertension type: renovascular hypertension Qualified Code(s): I15.0 - Renovascular hypertension (8) Hyperlipidemia Code(s): E78.5 - HYPERLIPIDEMIA, UNSPECIFIED Qualifiers: Hyperlipidemia type: pure hypercholesterolemia Qualified Code(s): E78.0 - Pure hypercholesterolemia (9) Hypothyroidism Code(s): E03.9 - HYPOTHYROIDISM, UNSPECIFIED Qualifiers: Hypothyroidism type: unspecified Qualified Code(s): E03.9 - Hypothyroidism, unspecified (10) Post-viral cough syndrome Code(s): R05 - COUGH (11) Shortness of breath Code(s): R06.02 - SHORTNESS OF BREATH Assessment/Plan 89F with multiple medical problems presents to the ED with cough fever shortness of breath and weakness. Patient has Influenza A Started on tamiflu. Patient is ESRD on HD will change dose to 30mg after every dialysis session for 4 more doses Admit to general medicine oxygen PRN monitor vital signs per protocol Nephrology consult for dialysis restart home meds per primary team will follow thank you for this opportunity to participate in the care of this patient
--- NOTE | 2016-07-12 13:14 | EKG ---
Test Reason : Blood Pressure : / mmHG Vent. Rate : 090 BPM Atrial Rate : 090 BPM P-R Int : 230 ms QRS Dur : 110 ms QT Int : 400 ms P-R-T Axes : 093 -14 159 degrees QTc Int : 489 ms SINUS RHYTHM WITH 1ST DEGREE A-V BLOCK WITH OCCASIONAL PREMATURE VENTRICULAR COMPLEXES LEFT VENTRICULAR HYPERTROPHY WITH REPOLARIZATION ABNORMALITY CANNOT RULE OUT SEPTAL INFARCT (CITED ON OR BEFORE 07-MAR-2015) ABNORMAL ECG T WAVE ABNORMALITY, CONSIDER LATERAL ISCHEMIA WHEN COMPARED WITH ECG OF 20-MAR-2016 15:31, NO SIGNIFICANT CHANGE WAS FOUND Confirmed by DEBORA PARISI MD ([id number]) on 07/12/2016 1:13:44 PM Referred By: Confirmed By:DEBORA PARISI MD
--- NOTE | 2016-07-12 13:53 | PN ---
Teaching Attending Note Name of Resident: Obey Acosta ATTENDING PHYSICIAN STATEMENT I saw and evaluated the patient. I reviewed the resident's note and discussed the case with the resident. I agree with the resident's findings and plan as documented. SUBJECTIVE: OBJECTIVE: ASSESSMENT AND PLAN: Acute influenza A ESRD Continue Tamiflu, adjusted for ESRD
[2016-07-12] MEDS ORDERED: methylPREDNISolone NA SUCC 40 MG/1 ML VIAL ONE (18:06)
[2016-07-12] MEDS: methylPREDNISolone NA SUCC 40 MG/1 ML VIAL IVPB SCH (18:10)
--- NOTE | 2016-07-12 18:53 | CONSULT ---
Consult - text type - Consultation Consultation Note: Renal Consult for ESRD on HD This is a 89 year old woman with PMhx of ESRD on HD (MWF) who presented with persistent cough and found to have influenza. ROS: No DUMONT, chest pain, sob, N/V/D, Edema. + chills Home Medications Medication Instructions Recorded Levothyroxine [Synthroid -] 100 mcg PO DAILY 10/11/12 Sevelamer Carbonate [Renvela -] 3 tab PO TID 10/11/12 Pregabalin [Lyrica] 75 mg PO DAILY #0 capsule 02/27/13 Metoprolol Succinate [Toprol XL -] 50 mg PO ASDIR 03/09/15 Acetaminophen [Tylenol .Regular 650 mg PO Q6H PRN #0 tablet 01/18/16 Strength -] Midodrine HCl 20 mg PO AM 03/20/16 Multivitamin/Iron/Folic Acid 1 each PO DAILY 03/20/16 [Daily Vitamin Formula-Iron Tab] Pantoprazole Sodium [Protonix -] 40 mg PO DAILY #30 tablet.ec 03/23/16 Simethicone [Mylicon -] 80 mg PO Q4H PRN #60 tab.chew 03/23/16 Midodrine HCl 10 mg PO HS 07/12/16 Sertraline HCl [Zoloft -] 50 mg PO DAILY 07/12/16 Vital Signs Temperature 97.6 F 07/12/16 17:36 Pulse Rate 81 07/12/16 17:36 Respiratory Rate 17 07/12/16 17:36 Blood Pressure 100/51 07/12/16 17:36 O2 Sat by Pulse Oximetry (%) 100 07/12/16 17:36 Intake & Output 07/09/16 07/10/16 07/11/16 07/12/16 23:59 23:59 23:59 23:59 Weight 145 lb 140 lb Gen: NAD, awake and alert CVS: RRR Lungs: CTA Abd: soft NT/ND Ext: no edema CBC, BMP 07/11/16 20:46 07/11/16 20:46 Current Medications Acetaminophen (Tylenol -) 650 mg PO Q6H PRN PRN Reason: FEVER OR PAIN Albuterol/Ipratropium (Duoneb -) 1 amp NEB Q6H PRN PRN Reason: ASTHMA Last Admin: 07/12/16 06:56 Dose: 1 amp Guaifenesin (Robitussin -) 10 ml PO Q4H PRN PRN Reason: COUGH Last Admin: 07/12/16 17:35 Dose: 10 ml Guaifenesin (Robitussin Dm -) 10 ml PO Q6H PRN PRN Reason: COUGH Levothyroxine Sodium (Synthroid -) 100 mcg PO DAILY@0600 [facility] Methylprednisolone Sodium Succinate (Solu-Medrol -) 40 mg IVPB Q8H-IV [facility] Last Admin: 07/12/16 18:10 Dose: 40 mg Metoprolol Succinate (Toprol Xl -) 50 mg PO DAILY [facility] Last Admin: 07/12/16 10:03 Dose: Not Given Midodrine (Proamatine -) 10 mg PO HS [facility] Midodrine (Proamatine -) 20 mg PO DAILY [facility] Last Admin: 07/12/16 09:51 Dose: 20 mg Oseltamivir Phosphate (Tamiflu -) 30 mg PO MoWeFr@1000 [facility] Stop: 07/20/16 10:01 Pantoprazole Sodium (Protonix -) 40 mg PO DAILY [facility] Last Admin: 07/12/16 09:52 Dose: 40 mg Pregabalin (Lyrica -) 75 mg PO DAILY [facility] Last Admin: 07/12/16 10:03 Dose: 75 mg Sertraline HCl (Zoloft -) 50 mg PO DAILY [facility] Last Admin: 07/12/16 09:52 Dose: 50 mg Sevelamer Carbonate (Renvela -) 1,600 mg PO 0900,1200,1730 [facility] Last Admin: 07/12/16 17:35 Dose: 1,600 mg Simethicone (Mylicon -) 80 mg PO Q4H PRN PRN Reason: GAS A/P For HD dialysis tomorrow Continue Tamiflu as per ID supportive Care Full consult to follow Yahir Cortez DO
[2016-07-13] MEDS: methylPREDNISolone NA SUCC 40 MG/1 ML VIAL IVPB SCH ×3 (01:55→21:47)
[2016-07-13] MEDS: ACETAMINOPHEN 325 MG TABLET (FP) PO PRN ×2 (03:43→21:48)
[2016-07-13] MEDS: LEVOTHYROXINE NA 100 MCG TABLET (FP) PO SCH (06:00)
[2016-07-13 07:55] LABS: MCH 29.6 pg (25.7-33.7); MCHC 32.2 g/dl (32.0-36.0); MEAN CELL VOLUME 91.9 fl (80-96); PLATELET COUNT 102 K/MM3 (134-434); RDW 15.5 % (11.6-15.6); WHITE BLOOD COUNT 6.4 K/mm3 (4.0-10.0)
[2016-07-13] MEDS ORDERED: PT OWN MED DRAWER 7, Y5N ONE (08:57)
[2016-07-13] MEDS: MIDODRINE HCL 5 MG TABLET PO SCH ×2 (09:11→21:47)
[2016-07-13] MEDS: PANTOPRAZOLE 40 MG TABLET (FP) PO SCH (09:11)
[2016-07-13] MEDS: PREGABALIN 25 MG CAPSULE PO SCH ×2 (09:11→17:20)
[2016-07-13] MEDS: METOPROLOL SUCCINATE 50 MG TAB.SR.24H (FP) PO SCH (09:11)
[2016-07-13] MEDS: SEVELAMER CARBONATE 800 MG TAB (FP) PO SCH ×3 (09:12→17:21)
[2016-07-13] MEDS: guaiFENesin/D-METHORPHAN HB 10 ML UNIT-DOSE CUPS PO PRN ×2 (09:12→17:21)
[2016-07-13] MEDS: SERTRALINE HCL 50 MG TABLET (FP) PO SCH ×2 (09:12→17:20)
--- NOTE | 2016-07-13 09:16 | PN ---
Progress Note, Physician History of Present Illness: patient seen and examined at bedside in good spirits today feels much better clinically looks better - Current Medication List Current Medications: Active Medications Acetaminophen (Tylenol -) 650 mg PO Q6H PRN PRN Reason: FEVER OR PAIN Last Admin: 07/13/16 03:43 Dose: 650 mg Albuterol/Ipratropium (Duoneb -) 1 amp NEB Q6H PRN PRN Reason: ASTHMA Last Admin: 07/12/16 06:56 Dose: 1 amp Guaifenesin (Robitussin -) 10 ml PO Q4H PRN PRN Reason: COUGH Last Admin: 07/12/16 17:35 Dose: 10 ml Guaifenesin (Robitussin Dm -) 10 ml PO Q6H PRN PRN Reason: COUGH Last Admin: 07/13/16 09:12 Dose: 10 ml Levothyroxine Sodium (Synthroid -) 100 mcg PO DAILY@0600 [facility] Last Admin: 07/13/16 06:00 Dose: 100 mcg Methylprednisolone Sodium Succinate (Solu-Medrol -) 40 mg IVPB Q8H-IV [facility] Last Admin: 07/13/16 09:11 Dose: 40 mg Metoprolol Succinate (Toprol Xl -) 50 mg PO DAILY [facility] Last Admin: 07/13/16 09:11 Dose: 50 mg Midodrine (Proamatine -) 10 mg PO HS [facility] Last Admin: 07/12/16 21:46 Dose: 10 mg Midodrine (Proamatine -) 20 mg PO DAILY [facility] Last Admin: 07/13/16 09:11 Dose: 20 mg Oseltamivir Phosphate (Tamiflu -) 30 mg PO MoWeFr@1000 [facility] Stop: 07/20/16 10:01 Pantoprazole Sodium (Protonix -) 40 mg PO DAILY [facility] Last Admin: 07/13/16 09:11 Dose: 40 mg Pregabalin (Lyrica -) 75 mg PO DAILY [facility] Last Admin: 07/13/16 09:11 Dose: 75 mg Sertraline HCl (Zoloft -) 50 mg PO DAILY [facility] Last Admin: 07/13/16 09:12 Dose: 50 mg Sevelamer Carbonate (Renvela -) 1,600 mg PO 0900,1200,1730 [facility] Last Admin: 07/13/16 09:12 Dose: 1,600 mg Simethicone (Mylicon -) 80 mg PO Q4H PRN PRN Reason: GAS Laboratory Results - last 24 hr 07/12/16 07/13/16 11:35 07:00 WBC 6.4 RBC 3.78 Hgb 11.2 Hct 34.8 MCV 91.9 MCHC 32.2 RDW 15.5 Plt Count 102 L MPV 10.0 Creatine Kinase 55 Troponin I 0.16 H Microbiology 07/11/16 20:46 Blood - Peripheral Venous Blood Culture - Preliminary NO GROWTH OBTAINED AFTER 24 HOURS, INCUBATION TO CONTINUE FOR 4 DAYS. 07/11/16 21:10 Blood - Peripheral Venous Blood Culture - Preliminary NO GROWTH OBTAINED AFTER 24 HOURS, INCUBATION TO CONTINUE FOR 4 DAYS. 07/11/16 20:46 Nasopharyngeal Swab Influenza Types A,B Antigen (SHEA) - Final 07/11/16 20:46 Nasopharyngeal Swab - Final - Objective Vital Signs: Vital Signs Temperature 98.1 F 07/13/16 06:00 Pulse Rate 82 07/13/16 06:00 Respiratory Rate 18 07/13/16 06:00 Blood Pressure 114/62 07/13/16 06:00 O2 Sat by Pulse Oximetry (%) 100 07/12/16 21:00 Constitutional: Yes: Well Nourished, No Distress HENT: Yes: Atraumatic, Normocephalic Neck: Yes: Supple, Trachea Midline Cardiovascular: Yes: Regular Rate and Rhythm, S1, S2 3/6 systolic murmur Respiratory: Yes: Other (coarse breath sounds bilaterally with much less congestion today) overall improved respiratory exam Gastrointestinal: Yes: Normal Bowel Sounds, Soft. No: Tenderness Edema: No Neurological: Yes: Alert (AAOX3), Oriented Psychiatric: Yes: Alert, Oriented Labs: CBC, BMP 07/13/16 07:00 Problem List - Problems (1) ESRD on hemodialysis Code(s): N18.6 - END STAGE RENAL DISEASE Z99.2 - DEPENDENCE ON RENAL DIALYSIS (2) Fever Code(s): R50.9 - FEVER, UNSPECIFIED Qualifiers: Fever type: other Qualified Code(s): R50.81 - Fever presenting with conditions classified elsewhere (3) Hypoxic Code(s): R09.02 - HYPOXEMIA (4) Influenza A Code(s): J10.1 - FLU DUE TO OTH IDENT INFLUENZA VIRUS W OTH RESP MANIFEST (5) GERD (gastroesophageal reflux disease) Code(s): K21.9 - GASTRO-ESOPHAGEAL REFLUX DISEASE WITHOUT ESOPHAGITIS Qualifiers: Esophagitis presence: esophagitis presence not specified Qualified Code(s): K21.9 - Gastro-esophageal reflux disease without esophagitis (6) Generalized weakness Code(s): R53.1 - WEAKNESS (7) HTN (hypertension) Code(s): I10 - ESSENTIAL (PRIMARY) HYPERTENSION Qualifiers: Hypertension type: renovascular hypertension Qualified Code(s): I15.0 - Renovascular hypertension (8) Hyperlipidemia Code(s): E78.5 - HYPERLIPIDEMIA, UNSPECIFIED Qualifiers: Hyperlipidemia type: pure hypercholesterolemia Qualified Code(s): E78.0 - Pure hypercholesterolemia (9) Hypothyroidism Code(s): E03.9 - HYPOTHYROIDISM, UNSPECIFIED Qualifiers: Hypothyroidism type: unspecified Qualified Code(s): E03.9 - Hypothyroidism, unspecified (10) Post-viral cough syndrome Code(s): R05 - COUGH (11) Shortness of breath Code(s): R06.02 - SHORTNESS OF BREATH Assessment/Plan 89F with multiple medical problems presents to the ED with cough fever shortness of breath and weakness. Patient has Influenza A Continue renally dosed tamiflu-will get a dose today after dialysis oxygen PRN monitor vital signs per protocol Nephrology on board for dialysis today will follow thank you for this opportunity to participate in the care of this patient
--- NOTE | 2016-07-13 09:40 | PN ---
Progress Note (short form) - Note Progress Note: feels improved still with cough Vital Signs Period Temp Pulse Resp BP Sys/Caro Pulse Ox Last 24 Hr 97.6 F-98.2 F 76-84 17-18 100-117/51-64 9-100 cor-rrr lungs bilateral rhonchi abd soft,nt ext no edema CBC, BMP 07/13/16 07:00 Microbiology 07/11/16 20:46 Blood - Peripheral Venous Blood Culture - Preliminary NO GROWTH OBTAINED AFTER 24 HOURS, INCUBATION TO CONTINUE FOR 4 DAYS. 07/11/16 21:10 Blood - Peripheral Venous Blood Culture - Preliminary NO GROWTH OBTAINED AFTER 24 HOURS, INCUBATION TO CONTINUE FOR 4 DAYS. 07/11/16 20:46 Nasopharyngeal Swab Influenza Types A,B Antigen (SHEA) - Final 07/11/16 20:46 Nasopharyngeal Swab - Final cxray no infiltrate a/p influenza A- finish 5 days tamiflu esrd/hd please call back if needed
--- NOTE | 2016-07-13 10:39 | PN ---
Progress Note (short form) - Note Progress Note: Renal Follow up for ESRD on HD Pt seen and examined at the bedside awake and alert feels better cough improved Vital Signs Temperature 98.1 F 07/13/16 06:00 Pulse Rate 83 07/13/16 10:35 Respiratory Rate 18 07/13/16 06:00 Blood Pressure 114/62 07/13/16 06:00 O2 Sat by Pulse Oximetry (%) 98 07/13/16 10:35 Intake & Output 07/10/16 07/11/16 07/12/16 07/13/16 23:59 23:59 23:59 23:59 Intake Total 300 200 Output Total 250 300 Balance 50 -100 Weight 145 lb 140 lb 146 lb 8 oz Gen: NAD CVS: RRR, No M/R Lungs: CTA Abd: soft NT/ND Ext: No edema, clubbing or cyanosis Access: left ARM aVF CBC, BMP 07/13/16 07:00 Current Medications Acetaminophen (Tylenol -) 650 mg PO Q6H PRN PRN Reason: FEVER OR PAIN Last Admin: 07/13/16 03:43 Dose: 650 mg Albuterol/Ipratropium (Duoneb -) 1 amp NEB Q6H PRN PRN Reason: ASTHMA Last Admin: 07/12/16 06:56 Dose: 1 amp Guaifenesin (Robitussin -) 10 ml PO Q4H PRN PRN Reason: COUGH Last Admin: 07/12/16 17:35 Dose: 10 ml Guaifenesin (Robitussin Dm -) 10 ml PO Q6H PRN PRN Reason: COUGH Last Admin: 07/13/16 09:12 Dose: 10 ml Levothyroxine Sodium (Synthroid -) 100 mcg PO DAILY@0600 [facility] Last Admin: 07/13/16 06:00 Dose: 100 mcg Methylprednisolone Sodium Succinate (Solu-Medrol -) 40 mg IVPB Q8H-IV [facility] Last Admin: 07/13/16 09:11 Dose: 40 mg Metoprolol Succinate (Toprol Xl -) 50 mg PO DAILY [facility] Last Admin: 07/13/16 09:11 Dose: 50 mg Midodrine (Proamatine -) 10 mg PO HS [facility] Last Admin: 07/12/16 21:46 Dose: 10 mg Midodrine (Proamatine -) 20 mg PO DAILY [facility] Last Admin: 07/13/16 09:11 Dose: 20 mg Oseltamivir Phosphate (Tamiflu -) 30 mg PO MoWeFr@1000 [facility] Stop: 07/20/16 10:01 Pantoprazole Sodium (Protonix -) 40 mg PO DAILY [facility] Last Admin: 07/13/16 09:11 Dose: 40 mg Pregabalin (Lyrica -) 75 mg PO DAILY [facility] Last Admin: 07/12/16 10:03 Dose: 75 mg Sertraline HCl (Zoloft -) 50 mg PO DAILY [facility] Last Admin: 07/12/16 09:52 Dose: 50 mg Sevelamer Carbonate (Renvela -) 1,600 mg PO 0900,1200,1730 [facility] Last Admin: 07/13/16 09:12 Dose: 1,600 mg Simethicone (Mylicon -) 80 mg PO Q4H PRN PRN Reason: GAS A/P 89 year old woman with PMhx of ESRD on HD (MW), DM Type 2, CAD, Hypothyroidism , Anemia, Renal Osteodystrophy presented with persist cough and found to have influenza A. #ESRD on HD For HD today Tx time 3hr 15mins with goal UF 1.5L as tolerated dose all meds for intermittent HD #Influenza A continue Tamiflu as per ID supportive care on IV steroids #Renal Osteodystrphy Continue Sevelamer TID with meals Thank you Yahir Cortez DO
--- NOTE | 2016-07-13 11:26 | PN ---
Progress Note, Physician Chief Complaint: no distress She feels better - Current Medication List Current Medications: Active Medications Acetaminophen (Tylenol -) 650 mg PO Q6H PRN PRN Reason: FEVER OR PAIN Last Admin: 07/13/16 03:43 Dose: 650 mg Albuterol/Ipratropium (Duoneb -) 1 amp NEB Q6H PRN PRN Reason: ASTHMA Last Admin: 07/12/16 06:56 Dose: 1 amp Guaifenesin (Robitussin -) 10 ml PO Q4H PRN PRN Reason: COUGH Last Admin: 07/12/16 17:35 Dose: 10 ml Guaifenesin (Robitussin Dm -) 10 ml PO Q6H PRN PRN Reason: COUGH Last Admin: 07/13/16 09:12 Dose: 10 ml Levothyroxine Sodium (Synthroid -) 100 mcg PO DAILY@0600 [facility] Last Admin: 07/13/16 06:00 Dose: 100 mcg Methylprednisolone Sodium Succinate (Solu-Medrol -) 40 mg IVPB Q8H-IV [facility] Last Admin: 07/13/16 09:11 Dose: 40 mg Metoprolol Succinate (Toprol Xl -) 50 mg PO DAILY [facility] Last Admin: 07/13/16 09:11 Dose: 50 mg Midodrine (Proamatine -) 10 mg PO HS [facility] Last Admin: 07/12/16 21:46 Dose: 10 mg Midodrine (Proamatine -) 20 mg PO DAILY [facility] Last Admin: 07/13/16 09:11 Dose: 20 mg Oseltamivir Phosphate (Tamiflu -) 30 mg PO MoWeFr@1000 [facility] Stop: 07/20/16 10:01 Pantoprazole Sodium (Protonix -) 40 mg PO DAILY [facility] Last Admin: 07/13/16 09:11 Dose: 40 mg Pregabalin (Lyrica -) 75 mg PO DAILY [facility] Last Admin: 07/12/16 10:03 Dose: 75 mg Sertraline HCl (Zoloft -) 50 mg PO DAILY [facility] Last Admin: 07/12/16 09:52 Dose: 50 mg Sevelamer Carbonate (Renvela -) 1,600 mg PO 0900,1200,1730 [facility] Last Admin: 07/13/16 09:12 Dose: 1,600 mg Simethicone (Mylicon -) 80 mg PO Q4H PRN PRN Reason: GAS - Objective Vital Signs: Vital Signs Temperature 98.1 F 07/13/16 06:00 Pulse Rate 83 07/13/16 10:35 Respiratory Rate 18 07/13/16 06:00 Blood Pressure 114/62 07/13/16 06:00 O2 Sat by Pulse Oximetry (%) 98 07/13/16 10:35 Constitutional: Yes: No Distress Cardiovascular: Yes: Regular Rate and Rhythm Respiratory: Yes: Diminished, Rhonchi (better) Gastrointestinal: Yes: Normal Bowel Sounds, Soft. No: Distention, Tenderness Edema: No Psychiatric: Yes: Alert, Oriented Labs: CBC, BMP 07/13/16 07:00 Problem List - Problems (1) ESRD on hemodialysis Code(s): N18.6 - END STAGE RENAL DISEASE Z99.2 - DEPENDENCE ON RENAL DIALYSIS (2) Fever Code(s): R50.9 - FEVER, UNSPECIFIED Qualifiers: Fever type: other Qualified Code(s): R50.81 - Fever presenting with conditions classified elsewhere (3) Influenza A Code(s): J10.1 - FLU DUE TO OTH IDENT INFLUENZA VIRUS W OTH RESP MANIFEST (4) Troponin level elevated Code(s): R79.89 - OTHER SPECIFIED ABNORMAL FINDINGS OF BLOOD CHEMISTRY Assessment/Plan PLAN Pt on Tamiflu -renal dose Nebs standing Lung exam better-- decrease Solumedrol trend troponins-- Cardiology eval-- pt had high troponins previous admission Elevated troponins likely due to renal disease, denies any chest pain Pt's O2 sat was initially 90 % on room air and came up to 96% on 3 liters. Continue with meds DVT prophylaxis - Heparin sc
[2016-07-13 12:02] LABS: ALBUMIN 3.5 g/dl (3.4-5.0); BILIRUBIN,TOTAL 0.6 mg/dL (0.2-1.0); CALCIUM 9.2 mg/dL (8.5-10.1); CREATININE 7.2 mg/dL (0.55-1.02); TOT PROT 7.2 g/dl (6.4-8.2)
[2016-07-13] MEDS: OSELTAMIVIR PHOSPHATE 30 MG CAPSULE PO SCH (17:20)
[2016-07-13] MEDS: ALBUTEROL SO4 2.5/IPRATROPIUM 0.5 INH SOL 3 ML VIAL.NEB. NEB PRN (18:39)
[2016-07-13] MEDS: guaiFENesin 200 MG/10 ML 10 ML UNIT-DOSE CUPS PO PRN (21:47)
[2016-07-14] MEDS: guaiFENesin/D-METHORPHAN HB 10 ML UNIT-DOSE CUPS PO PRN ×2 (03:56→09:21)
[2016-07-14] MEDS: LEVOTHYROXINE NA 100 MCG TABLET (FP) PO SCH (06:23)
[2016-07-14 07:42] LABS: BASOPHIL 0.1 % (0-2.0); MCH 29.7 pg (25.7-33.7); MCHC 32.1 g/dl (32.0-36.0); MEAN CELL VOLUME 92.5 fl (80-96); MEAN PLT VOLUME 10.4 fl (7.5-11.1); NEUTROPHILS 91.4 % (42.8-82.8); PLATELET COUNT 103 K/MM3 (134-434); RDW 15.7 % (11.6-15.6); WHITE BLOOD COUNT 16.3 K/mm3 (4.0-10.0)
[2016-07-14 08:01] LABS: CALCIUM 8.9 mg/dL (8.5-10.1)
[2016-07-14 08:06] LABS: ALBUMIN 3.3 g/dl (3.4-5.0); BILIRUBIN,TOTAL 0.6 mg/dL (0.2-1.0); CREATININE 4.7 mg/dL (0.55-1.02); TOT PROT 7.1 g/dl (6.4-8.2)
[2016-07-14 08:10] LABS: TROPONIN I 0.13 ng/ml (0.00-0.05)
[2016-07-14] MEDS: PREGABALIN 25 MG CAPSULE PO SCH (09:19)
[2016-07-14] MEDS: MIDODRINE HCL 5 MG TABLET PO SCH ×3 (09:20→22:38)
[2016-07-14] MEDS: SEVELAMER CARBONATE 800 MG TAB (FP) PO SCH ×3 (09:21→17:59)
[2016-07-14] MEDS: PANTOPRAZOLE 40 MG TABLET (FP) PO SCH (09:21)
[2016-07-14] MEDS: METOPROLOL SUCCINATE 50 MG TAB.SR.24H (FP) PO SCH (09:22)
[2016-07-14] MEDS: methylPREDNISolone NA SUCC 40 MG/1 ML VIAL IVPB SCH (09:22)
[2016-07-14] MEDS: SERTRALINE HCL 50 MG TABLET (FP) PO SCH (09:23)
--- NOTE | 2016-07-14 10:58 | PN ---
Progress Note, Physician Chief Complaint: no distress feeling better today cannot sleep well at night due to cough - Current Medication List Current Medications: Active Medications Acetaminophen (Tylenol -) 650 mg PO Q6H PRN PRN Reason: FEVER OR PAIN Last Admin: 07/13/16 21:48 Dose: 650 mg Albuterol/Ipratropium (Duoneb -) 1 amp NEB Q6H PRN PRN Reason: ASTHMA Last Admin: 07/13/16 18:39 Dose: 1 amp Guaifenesin (Robitussin -) 10 ml PO Q4H PRN PRN Reason: COUGH Last Admin: 07/13/16 21:47 Dose: 10 ml Guaifenesin (Robitussin Dm -) 10 ml PO Q6H PRN PRN Reason: COUGH Last Admin: 07/14/16 09:21 Dose: 10 ml Levothyroxine Sodium (Synthroid -) 100 mcg PO DAILY@0600 [facility] Last Admin: 07/14/16 06:23 Dose: 100 mcg Methylprednisolone Sodium Succinate (Solu-Medrol -) 40 mg IVPB BID [facility] Last Admin: 07/14/16 09:22 Dose: 40 mg Metoprolol Succinate (Toprol Xl -) 50 mg PO DAILY [facility] Last Admin: 07/14/16 09:22 Dose: Not Given Midodrine (Proamatine -) 10 mg PO HS [facility] Last Admin: 07/13/16 21:47 Dose: 10 mg Midodrine (Proamatine -) 20 mg PO DAILY [facility] Last Admin: 07/14/16 09:31 Dose: Not Given Oseltamivir Phosphate (Tamiflu -) 30 mg PO MoWeFr@1000 [facility] Stop: 07/20/16 10:01 Last Admin: 07/13/16 17:20 Dose: 30 mg Pantoprazole Sodium (Protonix -) 40 mg PO DAILY [facility] Last Admin: 07/14/16 09:21 Dose: 40 mg Pregabalin (Lyrica -) 75 mg PO DAILY [facility] Last Admin: 07/14/16 09:19 Dose: 75 mg Sertraline HCl (Zoloft -) 50 mg PO DAILY [facility] Last Admin: 07/14/16 09:23 Dose: 50 mg Sevelamer Carbonate (Renvela -) 1,600 mg PO 0900,1200,1730 [facility] Last Admin: 07/14/16 09:21 Dose: 1,600 mg Simethicone (Mylicon -) 80 mg PO Q4H PRN PRN Reason: GAS - Objective Vital Signs: Vital Signs Temperature 97.7 F 07/14/16 08:57 Pulse Rate 85 07/14/16 08:57 Respiratory Rate 20 07/14/16 08:57 Blood Pressure 124/64 07/14/16 08:57 O2 Sat by Pulse Oximetry (%) 92 L 07/13/16 21:00 Constitutional: Yes: No Distress Cardiovascular: Yes: Regular Rate and Rhythm Respiratory: Yes: Diminished, Rhonchi (decreased) Gastrointestinal: Yes: Normal Bowel Sounds, Soft. No: Distention, Tenderness Edema: No Labs: CBC, BMP 07/14/16 06:00 07/14/16 06:00 Problem List - Problems (1) ESRD on hemodialysis Code(s): N18.6 - END STAGE RENAL DISEASE Z99.2 - DEPENDENCE ON RENAL DIALYSIS (2) Fever Code(s): R50.9 - FEVER, UNSPECIFIED Qualifiers: Fever type: other Qualified Code(s): R50.81 - Fever presenting with conditions classified elsewhere (3) Influenza A Code(s): J10.1 - FLU DUE TO OTH IDENT INFLUENZA VIRUS W OTH RESP MANIFEST (4) Troponin level elevated Code(s): R79.89 - OTHER SPECIFIED ABNORMAL FINDINGS OF BLOOD CHEMISTRY Assessment/Plan PLAN Pt on Tamiflu -renal dose Nebs when necessary Lung exam better-- Taper Solumedrol Elevated troponins likely due to renal disease, denies any chest pain patient is about 89-90% on room air today, becomes 93-94% when she takes a deep breath incentive spirometry Continue with meds DVT prophylaxis - Heparin sc PT eval
--- NOTE | 2016-07-14 11:30 | CON.CARD ---
Consult Consult Specialty:: Cardiology Referred by:: Dariela Milian MD Reason for Consultation:: Subendocardial ischemia - History of Present Illness Chief Complaint: Cough, dyspnea History of Present Illness: Patient is an 89 year old female with underlying history of CAD s/p PCI (BMS to LCX), LV systolic dysfunction with history of LV failure, post ICD, HTN/HCVD, type 2 DM with neuropathy, hypercholesterolemia, hypothyroidism, ESRD on HD (M,W ,F) and history of gait disturbances. She was admitted for SOB and cough for about 1 week with chills, low grade fevers, cough productive of greenish sputum with post-tussive light-headedness and found to be positive for Influenza A, she reports improvement of sxs, denies chest tightness, palpitations, true syncope, orthopnea, PND or LE edema. - History Source History Provided By: Patient Limitations to Obtaining History: No Limitations - Past Medical History [employer]: Yes: Peripheral Neuropathy Cardio/Vascular: Yes: CAD, CHF, HTN, Hyperlipdemia, Other (S/P PCI/stent, chronic diastolic CHF) Gastrointestinal: Yes: Constipation, Gastritis, GERD, Peptic Ulcer Disease Renal/: Yes: Renal Failure, Hemodialysis Musculoskeletal: Yes: Osteoarthritis Endocrine: Yes: Diabetes Mellitus, Hypothyroidism - Past Surgical History Past Surgical History: Yes: AICD, AV Fistula/Graft, Cholecystectomy, Stent - Alcohol/Substance Use Hx Alcohol Use: No History of Substance Use: reports: None - Smoking History Smoking history: Former smoker Have you smoked in the past 12 months: No Aproximately how many cigarettes per day: 0 If you are a former smoker, when did you quit?: 25 years - Social History ADL: Independent 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 History of Recent Travel: No Home Medications - Allergies Allergies/Adverse Reactions: Allergies Allergy/AdvReac Type Severity Reaction Status Date / Time codeine [Codeine] Allergy Mild Itching Verified 07/11/16 09:32 oxycodone HCl [From Percocet] Allergy Verified 07/11/16 09:32 - Home Medications Home Medications: Ambulatory Orders Levothyroxine [Synthroid -] 100 mcg PO DAILY 10/11/12 Sevelamer Carbonate [Renvela -] 3 tab PO TID 10/11/12 Pregabalin [Lyrica] 75 mg PO DAILY #0 capsule 10/16/13 Metoprolol Succinate [Toprol XL -] 50 mg PO ASDIR 03/09/15 Acetaminophen [Tylenol .Regular Strength -] 650 mg PO Q6H PRN #0 tablet Midodrine HCl 20 mg PO AM 03/20/16 Multivitamin/Iron/Folic Acid [Daily Vitamin Formula-Iron Tab] 1 each PO DAILY Pantoprazole Sodium [Protonix -] 40 mg PO DAILY #30 tablet.ec 03/23/16 Simethicone [Mylicon -] 80 mg PO Q4H PRN #60 tab.chew 03/23/16 Midodrine HCl 10 mg PO HS 07/12/16 Sertraline HCl [Zoloft -] 50 mg PO DAILY 07/12/16 Review of Systems - Review of Systems Constitutional: reports: Fever Respiratory: reports: Cough, SOB Vital Signs: Vital Signs Temperature 97.7 F 07/14/16 08:57 Pulse Rate 85 07/14/16 08:57 Respiratory Rate 20 07/14/16 08:57 Blood Pressure 124/64 07/14/16 08:57 O2 Sat by Pulse Oximetry (%) 92 L 07/13/16 21:00 Constitutional: Yes: No Distress, Calm Neck: Yes: Supple Respiratory: Yes: Regular, Diminished Gastrointestinal: Yes: Normal Bowel Sounds, Soft Cardiovascular: Yes: Regular Rate and Rhythm JVD: No Carotid Bruit: No Heart Sounds: Yes: S1, S2 Murmur: Yes: Systolic Murmur, Grade 2 Edema: No - Other Data Labs, Other Data: CBC, BMP 07/14/16 06:00 07/14/16 06:00 Troponin, BNP 07/14/16 06:00 Troponin I 0.13 H Troponin, BNP 07/14/16 06:00 Troponin I 0.13 H NSR, LVH, PVC Ejection Fraction %: LVEF > or = 40 % Imaging - Results Chest X-ray: Report Reviewed (NAD) Problem List - Problems (1) ESRD on hemodialysis Code(s): N18.6 - END STAGE RENAL DISEASE Z99.2 - DEPENDENCE ON RENAL DIALYSIS (2) Fever Code(s): R50.9 - FEVER, UNSPECIFIED Qualifiers: Fever type: other Qualified Code(s): R50.81 - Fever presenting with conditions classified elsewhere (3) Influenza A Code(s): J10.1 - FLU DUE TO OTH IDENT INFLUENZA VIRUS W OTH RESP MANIFEST (4) Troponin level elevated Code(s): R79.89 - OTHER SPECIFIED ABNORMAL FINDINGS OF BLOOD CHEMISTRY (5) Aortic stenosis Code(s): I35.0 - NONRHEUMATIC AORTIC (VALVE) STENOSIS Qualifiers: Cardiac valve disease etiology: nonrheumatic Qualified Code(s): I35.0 - Nonrheumatic aortic (valve) stenosis (6) CAD (coronary artery disease) Code(s): I25.10 - ATHSCL HEART DISEASE OF [place] CORONARY ARTERY W/O ANG PCTRS Qualifiers: Coronary Disease-Associated Artery/Lesion type: [place] artery [place] vs. transplanted heart: [place] heart Associated angina: without angina Qualified Code(s): I25.10 - Atherosclerotic heart disease of [place] coronary artery without angina pectoris (7) Diabetes Code(s): E11.9 - TYPE 2 DIABETES MELLITUS WITHOUT COMPLICATIONS Qualifiers: Diabetes mellitus type: type 2 Diabetes mellitus complication status: without complication Diabetes mellitus long-term insulin use: without long-term use Qualified Code(s): E11.9 - Type 2 diabetes mellitus without complications (8) ESRD on dialysis Code(s): N18.6 - END STAGE RENAL DISEASE Z99.2 - DEPENDENCE ON RENAL DIALYSIS (9) HTN (hypertension) Code(s): I10 - ESSENTIAL (PRIMARY) HYPERTENSION Qualifiers: Hypertension type: renovascular hypertension Qualified Code(s): I15.0 - Renovascular hypertension (10) History of percutaneous coronary intervention Code(s): Z98.89 - OTHER SPECIFIED POSTPROCEDURAL STATES * DO NOT USE * (11) Hyperlipidemia Code(s): E78.5 - HYPERLIPIDEMIA, UNSPECIFIED Qualifiers: Hyperlipidemia type: pure hypercholesterolemia Qualified Code(s): E78.0 - Pure hypercholesterolemia (12) Hypothyroidism Code(s): E03.9 - HYPOTHYROIDISM, UNSPECIFIED Qualifiers: Hypothyroidism type: unspecified Qualified Code(s): E03.9 - Hypothyroidism, unspecified (13) Single implantable cardioverter-defibrillator (ICD) in situ Code(s): Z95.810 - PRESENCE OF AUTOMATIC (IMPLANTABLE) CARDIAC DEFIBRILLATOR (14) Systolic dysfunction without heart failure Code(s): I51.9 - HEART DISEASE, UNSPECIFIED (15) Subendocardial ischemia Code(s): I24.8 - OTHER FORMS OF ACUTE ISCHEMIC HEART DISEASE Assessment/Plan 1. Influenza A 2. LV systolic dysfunction with history of failure, currently compensated S/P ICD 3. Elevated troponin - subendocardial ischemia currently asymptomatic from cardiac standpoint 4. CAD, s/p PCI/stent, angina 5. HTN/HCVD 6. ESRD on HD via AVF 7. Type 2 DM 8. Hypercholesterolemia 9. Aortic stenosis (mild) and mild aortic regurgitation 10. Anemia 11. Hypothyroidism PLAN: 1. Continue Metoprolol XL 50 qd and midodrine 20/10 qd as tolerated 2. Continue ASA 81 qd, complete 5 day Tamiflu course 3. Transthoracic echocardiography was reviewed (obtained in January 2016) 4. ICD interrogation as outpatient in the office 5. HD as scheduled 6. Trops have peaked 7. Thank you for consultative opportunity
--- NOTE | 2016-07-14 14:27 | PN ---
Progress Note, Physician Chief Complaint: In bed Feeling much better Less cough Sleeping better Rest of w/u in progress - Current Medication List Current Medications: Active Medications Acetaminophen (Tylenol -) 650 mg PO Q6H PRN PRN Reason: FEVER OR PAIN Last Admin: 07/13/16 21:48 Dose: 650 mg Albuterol/Ipratropium (Duoneb -) 1 amp NEB Q6H PRN PRN Reason: ASTHMA Last Admin: 07/13/16 18:39 Dose: 1 amp Guaifenesin (Robitussin Dm -) 10 ml PO Q6H PRN PRN Reason: COUGH Last Admin: 07/14/16 09:21 Dose: 10 ml Guaifenesin/Codeine Phosphate (Robitussin Ac -) 5 ml PO HS PRN PRN Reason: COUGH Levothyroxine Sodium (Synthroid -) 100 mcg PO DAILY@0600 [facility]S [facility] Last Admin: 07/14/16 06:23 Dose: 100 mcg Methylprednisolone Sodium Succinate (Solu-Medrol -) 40 mg IVPB DAILY [facility] 234 BEDS AT [facility] Metoprolol Succinate (Toprol Xl -) 50 mg PO MoWeFr [facility]S [facility]CLUDE 234 BEDS AT [facility] Midodrine (Proamatine -) 10 mg PO HS [facility] 234 [facility]S [facility] Last Admin: 07/13/16 21:47 Dose: 10 mg Midodrine (Proamatine -) 20 mg PO MoWeFr COUNTS [facility]CLUDE 234 BEDS AT [facility] Oseltamivir Phosphate (Tamiflu -) 30 mg PO MoWeFr@1000 [facility] 234 BEDS AT [facility] Stop: 07/20/16 10:01 Last Admin: 07/13/16 17:20 Dose: 30 mg Pantoprazole Sodium (Protonix -) 40 mg PO DAILY [facility] 234 BEDS AT [facility] Last Admin: 07/14/16 09:21 Dose: 40 mg Pregabalin (Lyrica -) 75 mg PO DAILY [facility] 234 BEDS [facility] Last Admin: 07/14/16 09:19 Dose: 75 mg Sertraline HCl (Zoloft -) 50 mg PO DAILY [facility] 234 BEDS [facility] Last Admin: 07/14/16 09:23 Dose: 50 mg Sevelamer Carbonate (Renvela -) 1,600 mg PO 0900,1200,1730 [facility] 234 BEDS [facility] Last Admin: 07/14/16 12:01 Dose: 1,600 mg Simethicone (Mylicon -) 80 mg PO Q4H PRN PRN Reason: GAS - Objective Vital Signs: Vital Signs Temperature 97.7 F 07/14/16 08:57 Pulse Rate 85 07/14/16 08:57 Respiratory Rate 20 07/14/16 08:57 Blood Pressure 124/64 07/14/16 08:57 O2 Sat by Pulse Oximetry (%) 92 L 07/13/16 21:00 Constitutional: Yes: Well Nourished, Mild Distress Eyes: Yes: WNL HENT: Yes: Normocephalic Neck: Yes: Supple, Trachea Midline Cardiovascular: Yes: Regular Rate and Rhythm, S1, S2 Respiratory: Yes: CTA Bilaterally Gastrointestinal: Yes: Normal Bowel Sounds, Soft, Hypoactive Bowel Sounds Edema: No Neurological: Yes: Alert, Oriented Psychiatric: Yes: Oriented Labs: CBC, BMP 07/14/16 06:00 07/14/16 06:00 Problem List - Problems (1) ESRD on hemodialysis Code(s): N18.6 - END STAGE RENAL DISEASE Z99.2 - DEPENDENCE ON RENAL DIALYSIS (2) Fever Code(s): R50.9 - FEVER, UNSPECIFIED Qualifiers: Fever type: other Qualified Code(s): R50.81 - Fever presenting with conditions classified elsewhere (3) Influenza A Code(s): J10.1 - FLU DUE TO OTH IDENT INFLUENZA VIRUS W OTH RESP MANIFEST (4) Subendocardial ischemia Code(s): I24.8 - OTHER FORMS OF ACUTE ISCHEMIC HEART DISEASE (5) Anemia Code(s): D64.9 - ANEMIA, UNSPECIFIED (6) CAD (coronary artery disease) Code(s): I25.10 - ATHSCL HEART DISEASE OF [place] CORONARY ARTERY W/O ANG PCTRS Qualifiers: Coronary Disease-Associated Artery/Lesion type: [place] artery [place] vs. transplanted heart: [place] heart Associated angina: without angina Qualified Code(s): I25.10 - Atherosclerotic heart disease of [place] coronary artery without angina pectoris Assessment/Plan Patient's respiratory symptoms improving Next HD in AM Will try UF for 2-3 Kg
[2016-07-15 00:09] LABS: HEP B SURFACE AB Reactive (.)
[2016-07-15] MEDS: LEVOTHYROXINE NA 100 MCG TABLET (FP) PO SCH (05:46)
[2016-07-15 07:55] LABS: BASOPHIL 0.1 % (0-2.0); MCH 29.9 pg (25.7-33.7); MCHC 32.1 g/dl (32.0-36.0); MEAN CELL VOLUME 93.1 fl (80-96); MEAN PLT VOLUME 10.6 fl (7.5-11.1); NEUTROPHILS 89.3 % (42.8-82.8); PLATELET COUNT 93 K/MM3 (134-434); RDW 15.5 % (11.6-15.6); WHITE BLOOD COUNT 9.8 K/mm3 (4.0-10.0)
[2016-07-15] MEDS ORDERED: EPOETIN ALFA 10,000 UNIT/1 ML VIAL IVPUSH ONE (08:15)
[2016-07-15 08:22] LABS: ALBUMIN 3.4 g/dl (3.4-5.0); CALCIUM 9.3 mg/dL (8.5-10.1)
[2016-07-15 08:24] LABS: BILIRUBIN,TOTAL 0.8 mg/dL (0.2-1.0); CREATININE 6.2 mg/dL (0.55-1.02); TOT PROT 7.2 g/dl (6.4-8.2)
[2016-07-15] MEDS: MIDODRINE HCL 5 MG TABLET PO SCH ×3 (08:57→21:49)
--- NOTE | 2016-07-15 09:30 | PN ---
Progress Note (short form) - Note Progress Note: SUBJECTIVE: Patient seen and examined in dialysis. Chart reviewed. Feels better but still coughing. OBJECTIVE: Vital Signs - 8 hr 07/15/16 07/15/16 07/15/16 06:00 07:30 07:40 Temperature 97.0 F L 97.6 F Pulse Rate 81 78 66 Respiratory 20 18 18 Rate Blood Pressure 110/52 99/56 114/66 07/15/16 07/15/16 08:00 08:30 Temperature Pulse Rate 85 81 Respiratory 18 18 Rate Blood Pressure 125/58 105/71 Intake & Output 07/14/16 07/15/16 07/15/16 23:59 07:59 15:59 Intake Total 0 0 Balance 0 0 Intake: IV 0 0 RFA 07/11 0 0 IVPB 0 0 Other: Voiding Method Toilet Active Medications Acetaminophen (Tylenol -) 650 mg PO Q6H PRN PRN Reason: FEVER OR PAIN Last Admin: 07/13/16 21:48 Dose: 650 mg Albuterol/Ipratropium (Duoneb -) 1 amp NEB Q6H PRN PRN Reason: ASTHMA Last Admin: 07/13/16 18:39 Dose: 1 amp Guaifenesin (Robitussin Dm -) 10 ml PO Q6H PRN PRN Reason: COUGH Last Admin: 07/14/16 09:21 Dose: 10 ml Guaifenesin/Codeine Phosphate (Robitussin Ac -) 5 ml PO HS PRN PRN Reason: COUGH Levothyroxine Sodium (Synthroid -) 100 mcg PO DAILY@0600 [facility] Last Admin: 07/15/16 05:46 Dose: 100 mcg Methylprednisolone Sodium Succinate (Solu-Medrol -) 40 mg IVPB DAILY [facility] Metoprolol Succinate (Toprol Xl -) 50 mg PO MoWeFr [facility] Midodrine (Proamatine -) 10 mg PO HS [facility] Last Admin: 07/14/16 22:38 Dose: 10 mg Midodrine (Proamatine -) 20 mg PO MoWeFr [facility] Last Admin: 07/15/16 08:57 Dose: 20 mg Oseltamivir Phosphate (Tamiflu -) 30 mg PO MoWeFr@1000 [facility] Stop: 07/20/16 10:01 Last Admin: 07/13/16 17:20 Dose: 30 mg Pantoprazole Sodium (Protonix -) 40 mg PO DAILY [facility] Last Admin: 07/14/16 09:21 Dose: 40 mg Pregabalin (Lyrica -) 75 mg PO DAILY [facility] Last Admin: 07/14/16 09:19 Dose: 75 mg Sertraline HCl (Zoloft -) 50 mg PO DAILY [facility] Last Admin: 07/14/16 09:23 Dose: 50 mg Sevelamer Carbonate (Renvela -) 1,600 mg PO 0900,1200,1730 [facility] Last Admin: 07/14/16 17:59 Dose: 1,600 mg Simethicone (Mylicon -) 80 mg PO Q4H PRN PRN Reason: GAS CBC, BMP 07/15/16 06:30 07/15/16 06:00 Laboratory Results - last 24 hr 07/13/16 07/15/16 07/15/16 13:30 06:00 06:30 WBC 9.8 D RBC 3.80 Hgb 11.4 Hct 35.4 MCV 93.1 MCHC 32.1 RDW 15.5 Plt Count 93 L MPV 10.6 Neutrophils % 89.3 H Lymphocytes % 4.5 L D Monocytes % 6.1 Eosinophils % 0.0 Basophils % 0.1 Sodium 139 Potassium 4.0 Chloride 96 L Carbon Dioxide 29 Anion Gap 14 BUN 65 H D Creatinine 6.2 H D Creat Clearance w eGFR 6.37 Random Glucose 187 H Calcium 9.3 Total Bilirubin 0.8 D AST 20 D ALT 39 Alkaline Phosphatase 193 H Total Protein 7.2 Albumin 3.4 Hep A IgM Ab Confirm Negative Hepatitis A Ab Total Positive H Hep Bs Antigen Negative Hep Bs Antibody Reactive Hep B Core Total Ab Negative Microbiology 07/11/16 20:46 Blood Culture - Preliminary Blood - Peripheral Venous NO GROWTH OBTAINED AFTER 72 HOURS, INCUBATION TO CONTINUE FOR 2 DAYS. 07/11/16 21:10 Blood Culture - Preliminary Blood - Peripheral Venous NO GROWTH OBTAINED AFTER 72 HOURS, INCUBATION TO CONTINUE FOR 2 DAYS. PHYSICAL EXAMINATION: Constitutional: Yes: No Distress Cardiovascular: Yes: Regular Rate and Rhythm Respiratory: Yes: Bilateral Rhonchi. Gastrointestinal: Yes: Normal Bowel Sounds, Soft. No: Distention, Tenderness Edema: No Problem List - Problems (1) ESRD on hemodialysis Code(s): N18.6 - END STAGE RENAL DISEASE Z99.2 - DEPENDENCE ON RENAL DIALYSIS (2) Fever Code(s): R50.9 - FEVER, UNSPECIFIED Qualifiers: Fever type: other Qualified Code(s): R50.81 - Fever presenting with conditions classified elsewhere (3) Influenza A Code(s): J10.1 - FLU DUE TO OTH IDENT INFLUENZA VIRUS W OTH RESP MANIFEST (4) Troponin level elevated Code(s): R79.89 - OTHER SPECIFIED ABNORMAL FINDINGS OF BLOOD CHEMISTRY ASSESSMENT & PLAN: - Slowly getting better. - Continue present care. - Droplet precautions. - Steroids. - Will follow. Documentation prepared by Yamila Rosa, acting as a biomedical manager for Norma Oropeza MD.
--- NOTE | 2016-07-15 11:43 | PN ---
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 Admitted with cough accompanied by expectoration, fever, dyspnea, wheezing. Diagnosed to have influenza type A. Patient continues to have cough and intermittent wheezing. Currently she is afebrile. No history of chest pain or discomfort, mild dyspnea, no history of PND or orthopnea. Active Medications Generic Name Dose Route Start Last Admin Trade Name Freq PRN Reason Stop Dose Admin Acetaminophen 650 mg 07/11/16 23:32 07/13/16 21:48 Tylenol - PO 650 mg Q6H PRN Administration FEVER OR PAIN Albuterol/Ipratropium 1 amp 07/11/16 23:33 07/13/16 18:39 Duoneb - NEB 1 amp Q6H PRN Administration ASTHMA Guaifenesin 10 ml 07/12/16 16:00 07/14/16 09:21 Robitussin Dm - PO 10 ml Q6H PRN Administration COUGH Guaifenesin/Codeine Phosphate 5 ml 07/14/16 11:04 Robitussin Ac - PO HS PRN COUGH Levothyroxine Sodium 100 mcg 07/13/16 06:00 07/15/16 05:46 Synthroid - PO 100 mcg DAILY@0600 LINDA Administration Methylprednisolone Sodium Succinate 40 mg 07/15/16 10:00 Solu-Medrol - IVPB DAILY LINDA Metoprolol Succinate 50 mg 07/15/16 10:00 Toprol Xl - PO MoWeFr LINDA Midodrine 10 mg 07/12/16 22:00 07/14/16 22:38 Proamatine - PO 10 mg HS LINDA Administration Midodrine 20 mg 07/15/16 10:00 07/15/16 08:57 Proamatine - PO 20 mg MoWeFr LINDA Administration Oseltamivir Phosphate 30 mg 07/13/16 10:00 07/13/16 17:20 Tamiflu - PO 07/20/16 10:01 30 mg MoWeFr@1000 LINDA Administration Pantoprazole Sodium 40 mg 07/12/16 10:00 07/14/16 09:21 Protonix - PO 40 mg DAILY LINDA Administration Pregabalin 75 mg 07/12/16 10:00 07/14/16 09:19 Lyrica - PO 75 mg DAILY LINDA Administration Sertraline HCl 50 mg 07/12/16 10:00 07/14/16 09:23 Zoloft - PO 50 mg DAILY LINDA Administration Sevelamer Carbonate 1,600 mg 07/12/16 12:00 07/14/16 17:59 Renvela - PO 1,600 mg 0900,1200,1730 LINDA Administration Simethicone 80 mg 07/11/16 23:32 Mylicon - PO Q4H PRN GAS O: 89 year old female was in no acute distress, no pallor, cyanosis, clubbing, or jaundice. Last Vital Signs Temp Pulse Resp BP Pulse Ox 97.5 F L 84 18 120/63 98 07/15/16 11:00 07/15/16 11:00 07/15/16 11:00 07/15/16 11:00 07/14/16 21:00 Neck: Supple, no JVD, negative HJR, carotids were equal and upstrokes were normal, faint radiation or murmur vs bruits, no thyromegaly appreciated. Heart: PMI was in the 5th intercostal space, no heaves or thrills, S1 and S2 were normal. Heart sounds are slightly obscured by expiratory wheezing. Grade I- II/ ejection systolic murmur at the second right intercoastal space ending in early to mid systole. No diastolic murmur or gallops were appreciated. Lungs: Bilateral expiatory wheezing and coarse breath sounds. Abdomen: Soft, nontender, no hepatosplenomegaly appreciated, and no palpable masses were felt. Extremities: No calf tenderness or dependent edema. Pulses are normal. AV fistula involving the upper left arm. CBC, BMP 07/15/16 06:30 07/15/16 06:00 Laboratory Results - last 24 hr 07/13/16 07/15/16 07/15/16 13:30 06:00 06:30 WBC 9.8 D RBC 3.80 Hgb 11.4 Hct 35.4 MCV 93.1 MCHC 32.1 RDW 15.5 Plt Count 93 L MPV 10.6 Neutrophils % 89.3 H Lymphocytes % 4.5 L D Monocytes % 6.1 Eosinophils % 0.0 Basophils % 0.1 Sodium 139 Potassium 4.0 Chloride 96 L Carbon Dioxide 29 Anion Gap 14 BUN 65 H D Creatinine 6.2 H D Creat Clearance w eGFR 6.37 Random Glucose 187 H Calcium 9.3 Total Bilirubin 0.8 D AST 20 D ALT 39 Alkaline Phosphatase 193 H Total Protein 7.2 Albumin 3.4 Hep A IgM Ab Confirm Negative Hepatitis A Ab Total Positive H Hep Bs Antigen Negative Hep Bs Antibody Reactive Hep B Core Total Ab Negative Impression: (1) Influenza A Code(s): J10.1 - FLU DUE TO OTH IDENT INFLUENZA VIRUS W OTH RESP MANIFEST (2) CAD (coronary artery disease) Code(s): I25.10 - ATHSCL HEART DISEASE OF [place] CORONARY ARTERY W/O ANG PCTRS Qualifiers: Coronary Disease-Associated Artery/Lesion type: [place] artery [place] vs. transplanted heart: [place] heart Associated angina: without angina Qualified Code(s): I25.10 - Atherosclerotic heart disease of [place] coronary artery without angina pectoris (3) History of percutaneous coronary intervention / PCI Code(s): Z98.89 - OTHER SPECIFIED POSTPROCEDURAL STATES * DO NOT USE * (4) Mild elevation of Troponins with normal total CK most likely related to end stage renal disease Code(s): R79.89 - OTHER SPECIFIED ABNORMAL FINDINGS OF BLOOD CHEMISTRY (5) Diabetes Mellitus, poorly controlled Code(s): E11.9 - TYPE 2 DIABETES MELLITUS WITHOUT COMPLICATIONS Qualifiers: Diabetes mellitus type: type 2 Diabetes mellitus complication status: without complication Diabetes mellitus metal leaf layer insulin use: without shelter use Qualified Code(s): E11.9 - Type 2 diabetes mellitus without complications (6) ESRD on hemodialysis Code(s): N18.6 - END STAGE RENAL DISEASE Z99.2 - DEPENDENCE ON RENAL DIALYSIS (7) Aortic stenosis Code(s): I35.0 - NONRHEUMATIC AORTIC (VALVE) STENOSIS Qualifiers: Cardiac valve disease etiology: nonrheumatic Qualified Code(s): I35.0 - Nonrheumatic aortic (valve) stenosis (8) HTN (hypertension) Code(s): I10 - ESSENTIAL (PRIMARY) HYPERTENSION Qualifiers: Hypertension type: renovascular hypertension Qualified Code(s): I15.0 - Renovascular hypertension (9) Hyperlipidemia Code(s): E78.5 - HYPERLIPIDEMIA, UNSPECIFIED Qualifiers: Hyperlipidemia type: pure hypercholesterolemia Qualified Code(s): E78.0 - Pure hypercholesterolemia (10) Hypothyroidism Code(s): E03.9 - HYPOTHYROIDISM, UNSPECIFIED Qualifiers: Hypothyroidism type: unspecified Qualified Code(s): E03.9 - Hypothyroidism, unspecified (11) Single implantable cardioverter-defibrillator (ICD) in situ Code(s): Z95.810 - PRESENCE OF AUTOMATIC (IMPLANTABLE) CARDIAC DEFIBRILLATOR (12) Systolic dysfunction without heart failure Code(s): I51.9 - HEART DISEASE, UNSPECIFIED (13) Persistent wheezing and cough secondary to #1 Recommendations: 1. If dyspnea, wheezing and cough persist patient may require short term use of corticosteroids. 2. Continue current cardiac therapy. 3. Control of diabetes mellitus. 4. Follow up chest x-ray. Prognosis: Guarded Attestation: Documentation prepared by Jarred Galloway, acting as medical assistant internal medicine for Brian Johnson MD.
[2016-07-15] MEDS ORDERED: PT OWN MED DRAWER 7, Y5N ONE (11:48)
[2016-07-15] MEDS: PREGABALIN 25 MG CAPSULE PO SCH (11:53)
[2016-07-15] MEDS: SEVELAMER CARBONATE 800 MG TAB (FP) PO SCH ×3 (11:53→17:39)
[2016-07-15] MEDS: methylPREDNISolone NA SUCC 40 MG/1 ML VIAL IVPB SCH (11:55)
[2016-07-15] MEDS: OSELTAMIVIR PHOSPHATE 30 MG CAPSULE PO SCH (11:55)
[2016-07-15] MEDS: SERTRALINE HCL 50 MG TABLET (FP) PO SCH (11:56)
[2016-07-15] MEDS: METOPROLOL SUCCINATE 50 MG TAB.SR.24H (FP) PO SCH (11:56)
[2016-07-15] MEDS: PANTOPRAZOLE 40 MG TABLET (FP) PO SCH (11:56)
[2016-07-15] MEDS: guaiFENesin/D-METHORPHAN HB 10 ML UNIT-DOSE CUPS PO PRN (11:57)
--- NOTE | 2016-07-15 12:16 | PN ---
Progress Note (short form) - Note Progress Note: Renal Follow up for ESRD on HD Pt seen and examined at the bedside s/p dialysis this am with 2kg UF tolerated it well no acute complaints continues to have cough Vital Signs Temperature 97.5 F L 07/15/16 11:00 Pulse Rate 75 07/15/16 11:58 Respiratory Rate 18 07/15/16 11:58 Blood Pressure 119/55 07/15/16 11:58 O2 Sat by Pulse Oximetry (%) 98 07/14/16 21:00 Intake & Output 07/12/16 07/13/16 07/14/16 07/15/16 23:59 23:59 23:59 23:59 Intake Total 300 500 400 0 Output Total 250 300 300 Balance 50 200 100 0 Weight 140 lb 146 lb 8 oz 145 lb 4.8 oz Gen: NAD CVS: RRR, No M/R Lungs: CTA Abd: soft NT/ND Ext: No edema, clubbing or cyanosis Access: left ARM aVF CBC, BMP 07/15/16 06:30 07/15/16 06:00 Current Medications Acetaminophen (Tylenol -) 650 mg PO Q6H PRN PRN Reason: FEVER OR PAIN Last Admin: 07/13/16 21:48 Dose: 650 mg Albuterol/Ipratropium (Duoneb -) 1 amp NEB Q6H PRN PRN Reason: ASTHMA Last Admin: 07/13/16 18:39 Dose: 1 amp Guaifenesin (Robitussin Dm -) 10 ml PO Q6H PRN PRN Reason: COUGH Last Admin: 07/15/16 11:57 Dose: 10 ml Guaifenesin/Codeine Phosphate (Robitussin Ac -) 5 ml PO HS PRN PRN Reason: COUGH Levothyroxine Sodium (Synthroid -) 100 mcg PO DAILY@0600 [facility] Last Admin: 07/15/16 05:46 Dose: 100 mcg Methylprednisolone Sodium Succinate (Solu-Medrol -) 40 mg IVPB DAILY [facility] Last Admin: 07/15/16 11:55 Dose: 40 mg Metoprolol Succinate (Toprol Xl -) 50 mg PO MoWeFr [facility] Last Admin: 07/15/16 11:56 Dose: Not Given Midodrine (Proamatine -) 10 mg PO HS [facility] Last Admin: 07/14/16 22:38 Dose: 10 mg Midodrine (Proamatine -) 20 mg PO MoWeFr [facility] Last Admin: 07/15/16 11:55 Dose: Not Given Oseltamivir Phosphate (Tamiflu -) 30 mg PO MoWeFr@1000 [facility] Stop: 07/20/16 10:01 Last Admin: 07/15/16 11:55 Dose: 30 mg Pantoprazole Sodium (Protonix -) 40 mg PO DAILY [facility] Last Admin: 07/15/16 11:56 Dose: 40 mg Pregabalin (Lyrica -) 75 mg PO DAILY [facility] Last Admin: 07/15/16 11:53 Dose: 75 mg Sertraline HCl (Zoloft -) 50 mg PO DAILY [facility] Last Admin: 07/15/16 11:56 Dose: 50 mg Sevelamer Carbonate (Renvela -) 1,600 mg PO 0900,1200,1730 [facility] Last Admin: 07/15/16 11:54 Dose: 1,600 mg Simethicone (Mylicon -) 80 mg PO Q4H PRN PRN Reason: GAS A/P 89 year old woman with PMhx of ESRD on HD (MW), DM Type 2, CAD, Hypothyroidism , Anemia, Renal Osteodystrophy presented with persist cough and found to have influenza A. #ESRD on HD Tolerated HD well UF 2L #Influenza A continue Tamiflu as per ID supportive care on IV steroids #Renal Osteodystrphy Continue Sevelamer TID with meals #Thrombocytopenia Appears chronic will not give heparin with dialysis Thank you Yahir Cortez DO
[2016-07-15] MEDS: guaiFENesin/CODEINE 5 ML UNIT-DOSE CUPS PO PRN (21:51)
[2016-07-16] MEDS: ACETAMINOPHEN 325 MG TABLET (FP) PO PRN (00:27)
[2016-07-16] MEDS: LEVOTHYROXINE NA 100 MCG TABLET (FP) PO SCH (06:10)
[2016-07-16 08:08] LABS: CALCIUM 9.3 mg/dL (8.5-10.1)
[2016-07-16] MEDS: PANTOPRAZOLE 40 MG TABLET (FP) PO SCH (09:15)
[2016-07-16] MEDS: methylPREDNISolone NA SUCC 40 MG/1 ML VIAL IVPB SCH ×3 (09:15→17:46)
[2016-07-16] MEDS: PREGABALIN 25 MG CAPSULE PO SCH (09:15)
[2016-07-16] MEDS: METOPROLOL SUCCINATE 50 MG TAB.SR.24H (FP) PO SCH (09:15)
[2016-07-16] MEDS: guaiFENesin/CODEINE 5 ML UNIT-DOSE CUPS PO PRN ×2 (09:16→22:14)
[2016-07-16] MEDS: SERTRALINE HCL 50 MG TABLET (FP) PO SCH (09:16)
[2016-07-16] MEDS: SEVELAMER CARBONATE 800 MG TAB (FP) PO SCH ×3 (09:16→17:41)
--- NOTE | 2016-07-16 10:41 | PN ---
Progress Note, Physician Chief Complaint: feels SOB today more cough - Current Medication List Current Medications: Active Medications Acetaminophen (Tylenol -) 650 mg PO Q6H PRN PRN Reason: FEVER OR PAIN Last Admin: 07/16/16 00:27 Dose: 650 mg Albuterol/Ipratropium (Duoneb -) 1 amp NEB Q6H PRN PRN Reason: ASTHMA Last Admin: 07/13/16 18:39 Dose: 1 amp Guaifenesin (Robitussin Dm -) 10 ml PO Q6H PRN PRN Reason: COUGH Last Admin: 07/15/16 11:57 Dose: 10 ml Guaifenesin/Codeine Phosphate (Robitussin Ac -) 5 ml PO HS PRN PRN Reason: COUGH Last Admin: 07/16/16 09:16 Dose: 5 ml Levothyroxine Sodium (Synthroid -) 100 mcg PO DAILY@0600 [facility] Last Admin: 07/16/16 06:10 Dose: 100 mcg Methylprednisolone Sodium Succinate (Solu-Medrol -) 40 mg IVPB DAILY [facility] Last Admin: 07/16/16 09:15 Dose: 40 mg Metoprolol Succinate (Toprol Xl -) 50 mg PO MoWeFr [facility] Last Admin: 07/16/16 09:15 Dose: 50 mg Midodrine (Proamatine -) 10 mg PO [facility] Last Admin: 07/15/16 21:49 Dose: 10 mg Midodrine (Proamatine -) 20 mg PO MoWeFr [facility] Last Admin: 07/15/16 11:55 Dose: Not Given Oseltamivir Phosphate (Tamiflu -) 30 mg PO MoWeFr@1000 [facility] Stop: 07/20/16 10:01 Last Admin: 07/15/16 11:55 Dose: 30 mg Pantoprazole Sodium (Protonix -) 40 mg PO DAILY [facility] Last Admin: 07/16/16 09:15 Dose: 40 mg Pregabalin (Lyrica -) 75 mg PO DAILY [facility] Last Admin: 07/16/16 09:15 Dose: 75 mg Sertraline HCl (Zoloft -) 50 mg PO DAILY [facility] Last Admin: 07/16/16 09:16 Dose: 50 mg Sevelamer Carbonate (Renvela -) 1,600 mg PO 0900,1200,1730 [facility] Last Admin: 07/16/16 09:16 Dose: 1,600 mg Simethicone (Mylicon -) 80 mg PO Q4H PRN PRN Reason: GAS - Objective Vital Signs: Vital Signs Temperature 97.6 F 07/16/16 06:00 Pulse Rate 100 H 07/16/16 06:00 Respiratory Rate 18 07/16/16 06:00 Blood Pressure 113/48 07/16/16 06:00 O2 Sat by Pulse Oximetry (%) 96 07/15/16 21:00 Constitutional: Yes: Anxious Cardiovascular: Yes: Regular Rate and Rhythm Respiratory: Yes: Diminished, Rhonchi Gastrointestinal: Yes: Normal Bowel Sounds, Soft. No: Tenderness Edema: No Labs: CBC, BMP 07/15/16 06:30 07/16/16 06:00 Problem List - Problems (1) ESRD on hemodialysis Code(s): N18.6 - END STAGE RENAL DISEASE Z99.2 - DEPENDENCE ON RENAL DIALYSIS (2) Fever Code(s): R50.9 - FEVER, UNSPECIFIED Qualifiers: Qualified Code(s): R50.81 - Fever presenting with conditions classified elsewhere (3) Influenza A Code(s): J10.1 - FLU DUE TO OTH IDENT INFLUENZA VIRUS W OTH RESP MANIFEST (4) Troponin level elevated Code(s): R79.89 - OTHER SPECIFIED ABNORMAL FINDINGS OF BLOOD CHEMISTRY Assessment/Plan PLAN complete Tamiflu Increase solumedrol nebs standing dose Continue with meds DVT prophylaxis - Heparin sc PT eval
[2016-07-16] MEDS: ALBUTEROL SO4 2.5/IPRATROPIUM 0.5 INH SOL 3 ML VIAL.NEB. NEB SCH ×3 (11:00→23:02)
--- NOTE | 2016-07-16 11:41 | PN ---
Progress Note (short form) - Note Progress Note: Renal Follow up for ESRD on HD Pt seen and examined at the bedside + cough with sputum production no sob, chest pain s/p dialysis yesterday Vital Signs Temperature 97.6 F 07/16/16 06:00 Pulse Rate 100 H 07/16/16 06:00 Respiratory Rate 18 07/16/16 06:00 Blood Pressure 113/48 07/16/16 06:00 O2 Sat by Pulse Oximetry (%) 96 07/15/16 21:00 Intake & Output 07/13/16 07/14/16 07/15/16 07/16/16 23:59 23:59 23:59 23:59 Intake Total 500 400 60 Output Total 300 300 Balance 200 100 60 Weight 146 lb 8 oz 145 lb 4.8 oz 146 lb 6 oz Gen: NAD CVS: RRR, No M/R Lungs: CTA Abd: soft NT/ND Ext: No edema, clubbing or cyanosis Access: left ARM aVF CBC, BMP 07/15/16 06:30 07/16/16 06:00 Current Medications Acetaminophen (Tylenol -) 650 mg PO Q6H PRN PRN Reason: FEVER OR PAIN Last Admin: 07/16/16 00:27 Dose: 650 mg Albuterol/Ipratropium (Duoneb -) 1 amp NEB Q6H [facility] Last Admin: 07/16/16 11:00 Dose: 1 amp Guaifenesin/Codeine Phosphate (Robitussin Ac -) 5 ml PO Q6H PRN PRN Reason: COUGH Levothyroxine Sodium (Synthroid -) 100 mcg PO DAILY@0600 [facility] Last Admin: 07/16/16 06:10 Dose: 100 mcg Methylprednisolone Sodium Succinate (Solu-Medrol -) 40 mg IVPB Q8H [facility] Metoprolol Succinate (Toprol Xl -) 50 mg PO MoWeFr [facility] Last Admin: 07/16/16 09:15 Dose: 50 mg Midodrine (Proamatine -) 10 mg PO HS [facility] Last Admin: 07/15/16 21:49 Dose: 10 mg Midodrine (Proamatine -) 20 mg PO MoWeFr [facility] Last Admin: 07/15/16 11:55 Dose: Not Given Oseltamivir Phosphate (Tamiflu -) 30 mg PO MoWeFr@1000 [facility] Stop: 03/08/17 10:01 Last Admin: 07/15/16 11:55 Dose: 30 mg Pantoprazole Sodium (Protonix -) 40 mg PO DAILY [facility] Last Admin: 07/16/16 09:15 Dose: 40 mg Pregabalin (Lyrica -) 75 mg PO DAILY [facility] Last Admin: 07/16/16 09:15 Dose: 75 mg Sertraline HCl (Zoloft -) 50 mg PO DAILY [facility] Last Admin: 07/16/16 09:16 Dose: 50 mg Sevelamer Carbonate (Renvela -) 1,600 mg PO 0900,1200,1730 [facility] Last Admin: 07/16/16 09:16 Dose: 1,600 mg Simethicone (Mylicon -) 80 mg PO Q4H PRN PRN Reason: GAS Sitagliptin Phosphate (Januvia -) 50 mg PO DAILY@0700 [facility] A/P 89 year old woman with PMhx of ESRD on HD (MWF), DM Type 2, CAD, Hypothyroidism , Anemia, Renal Osteodystrophy presented with persist cough and found to have influenza A. #ESRD on HD no acute indication for IT CONSULTING DIRECTOR today Check BMP in the AM next Hd planned for Monday #Influenza A continue Tamiflu as per ID supportive care on IV steroids #Renal Osteodystrphy Continue Sevelamer TID with meals #Thrombocytopenia Appears chronic will not give heparin with dialysis Thank you Yahir Cortez DO
--- NOTE | 2016-07-16 13:42 | PN ---
Progress Note, Physician Chief Complaint: Events noted Isolated due to Influenza Dyspnea intermittentl History of Present Illness: Patient was seen and examined. Awake and alert. Chart was reviewed Denies chest pain or palpitations. Cough and dyspnea intermittently - Current Medication List Current Medications: Active Medications Acetaminophen (Tylenol -) 650 mg PO Q6H PRN PRN Reason: FEVER OR PAIN Last Admin: 07/16/16 00:27 Dose: 650 mg Albuterol/Ipratropium (Duoneb -) 1 amp NEB Q6H [facility] Last Admin: 07/16/16 11:00 Dose: 1 amp Guaifenesin/Codeine Phosphate (Robitussin Ac -) 5 ml PO Q6H PRN PRN Reason: COUGH Levothyroxine Sodium (Synthroid -) 100 mcg PO DAILY@0600 [facility] Last Admin: 07/16/16 06:10 Dose: 100 mcg Methylprednisolone Sodium Succinate (Solu-Medrol -) 40 mg IVPB Q8H [facility] Last Admin: 07/16/16 10:45 Dose: Not Given Metoprolol Succinate (Toprol Xl -) 50 mg PO MoWeFr [facility] Last Admin: 07/16/16 09:15 Dose: 50 mg Midodrine (Proamatine -) 10 mg PO HS [facility] Last Admin: 07/15/16 21:49 Dose: 10 mg Midodrine (Proamatine -) 20 mg PO MoWeFr [facility] Last Admin: 07/15/16 11:55 Dose: Not Given Oseltamivir Phosphate (Tamiflu -) 30 mg PO MoWeFr@1000 [facility] Stop: 07/20/16 10:01 Last Admin: 07/15/16 11:55 Dose: 30 mg Pantoprazole Sodium (Protonix -) 40 mg PO DAILY [facility] Last Admin: 07/16/16 09:15 Dose: 40 mg Pregabalin (Lyrica -) 75 mg PO DAILY [facility] Last Admin: 07/16/16 09:15 Dose: 75 mg Sertraline HCl (Zoloft -) 50 mg PO DAILY [facility] Last Admin: 07/16/16 09:16 Dose: 50 mg Sevelamer Carbonate (Renvela -) 1,600 mg PO 0900,1200,1730 [facility] Last Admin: 07/16/16 12:28 Dose: 1,600 mg Simethicone (Mylicon -) 80 mg PO Q4H PRN PRN Reason: GAS Sitagliptin Phosphate (Januvia -) 50 mg PO DAILY@0700 [facility] - Objective Vital Signs: Vital Signs Temperature 98.4 F 07/16/16 09:00 Pulse Rate 92 H 07/16/16 09:00 Respiratory Rate 16 07/16/16 09:00 Blood Pressure 133/64 07/16/16 09:00 O2 Sat by Pulse Oximetry (%) 98 07/16/16 09:00 Neck: Yes: Supple Cardiovascular: Yes: Regular Rate and Rhythm, S1, S2 Respiratory: Yes: Diminished Gastrointestinal: Yes: Normal Bowel Sounds, Soft. No: Tenderness Edema: No Labs: CBC, BMP 07/15/16 06:30 07/16/16 06:00 Assessment/Plan 1. Influenza A 2. LV systolic dysfunction with history of failure, currently compensated S/P ICD 3. Elevated troponin - subendocardial ischemia 4. CAD, s/p PCI/stent, angina 5. HTN/HCVD 6. ESRD on HD via AVF 7. Type 2 DM 8. Hypercholesterolemia 9. Aortic stenosis (mild) and mild aortic regurgitation 10. Anemia 11. Hypothyroidism PLAN: 1. Continue Metoprolol ER 50 mg qd and Midodrine 20/10 qd as tolerated 2. Continue ASA 81 qd and complete 5 day Tamiflu course 3. ICD interrogation as outpatient in the office 4. HD as scheduled 5. Trend cardiac enzymes Further plans are to follow Len Guevara MD
[2016-07-16] MEDS: MIDODRINE HCL 5 MG TABLET PO SCH (22:13)
[2016-07-17] MEDS: methylPREDNISolone NA SUCC 40 MG/1 ML VIAL IVPB SCH ×4 (02:46→17:51)
[2016-07-17] MEDS: sitaGLIPtin PHOSPHATE 50 MG TABLET PO SCH (06:24)
[2016-07-17] MEDS: LEVOTHYROXINE NA 100 MCG TABLET (FP) PO SCH (06:24)
[2016-07-17] MEDS: ALBUTEROL SO4 2.5/IPRATROPIUM 0.5 INH SOL 3 ML VIAL.NEB. NEB SCH (06:55)
[2016-07-17 07:39] LABS: CALCIUM 9.4 mg/dL (8.5-10.1); CREATININE 6.8 mg/dL (0.55-1.02)
[2016-07-17] MEDS: PREGABALIN 25 MG CAPSULE PO SCH (09:35)
[2016-07-17] MEDS: PANTOPRAZOLE 40 MG TABLET (FP) PO SCH (09:35)
[2016-07-17] MEDS: SEVELAMER CARBONATE 800 MG TAB (FP) PO SCH ×3 (09:36→17:51)
[2016-07-17] MEDS: guaiFENesin/CODEINE 5 ML UNIT-DOSE CUPS PO PRN (09:36)
[2016-07-17] MEDS: SERTRALINE HCL 50 MG TABLET (FP) PO SCH (09:41)
--- NOTE | 2016-07-17 10:42 | CON.PULM ---
Consult Consult Specialty:: PULM/CCM Referred by:: NUPUR Reason for Consultation:: SOB - History of Present Illness Chief Complaint: SOB / cough History of Present Illness: 89 F, with listed medical and surgical history, Admitted via the ER due to SOB , cough, and chills for about 1 week. Reports greenish sputum. No hemoptysis. No known sick contacts or travel history. Found to be Influenza A. Developed sore throat, anxiety, and tremulousness after BD [place]. 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 Cardio/Vascular: Yes: CAD, CHF, HTN, Hyperlipdemia, Other (S/P PCI/stent, chronic diastolic CHF) Gastrointestinal: Yes: Constipation, Gastritis, GERD, Peptic Ulcer Disease Renal/: Yes: Renal Failure, Hemodialysis Musculoskeletal: Yes: Osteoarthritis Endocrine: Yes: Diabetes Mellitus, Hypothyroidism - Past Surgical History Past Surgical History: Yes: AICD, AV Fistula/Graft, Cholecystectomy, Stent - Alcohol/Substance Use Hx Alcohol Use: No History of Substance Use: reports: None - Smoking History Smoking history: Former smoker Have you smoked in the past 12 months: No Aproximately how many cigarettes per day: 0 If you are a former smoker, when did you quit?: 25 years - Social History ADL: Independent 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 History of Recent Travel: No Home Medications - Allergies Allergies/Adverse Reactions: Allergies Allergy/AdvReac Type Severity Reaction Status Date / Time codeine [Codeine] Allergy Mild Itching Verified 07/11/16 09:32 oxycodone HCl [From Percocet] Allergy Verified 07/11/16 09:32 - Home Medications Home Medications: Ambulatory Orders Levothyroxine [Synthroid -] 100 mcg PO DAILY 10/11/12 Sevelamer Carbonate [Renvela -] 3 tab PO TID 10/11/12 Pregabalin [Lyrica] 75 mg PO DAILY #0 capsule 02/27/13 Metoprolol Succinate [Toprol XL -] 50 mg PO ASDIR 03/09/15 Acetaminophen [Tylenol .Regular Strength -] 650 mg PO Q6H PRN #0 tablet Midodrine HCl 20 mg PO AM 03/20/16 Multivitamin/Iron/Folic Acid [Daily Vitamin Formula-Iron Tab] 1 each PO DAILY Pantoprazole Sodium [Protonix -] 40 mg PO DAILY #30 tablet.ec 03/23/16 Simethicone [Mylicon -] 80 mg PO Q4H PRN #60 tab.chew 03/23/16 Midodrine HCl 10 mg PO HS 07/12/16 Sertraline HCl [Zoloft -] 50 mg PO DAILY 07/12/16 Review of Systems - Review of Systems Constitutional: reports: Chills, Fever, Malaise, Weakness. denies: Night Sweats Eyes: reports: No Symptoms HENT: reports: No Symptoms Neck: reports: No Symptoms Cardiovascular: reports: Palpitations, Shortness of Breath. denies: Chest Pain , Edema Respiratory: reports: Cough, SOB, SOB on Exertion, Wheezing. denies: Hemoptysis Gastrointestinal: reports: No Symptoms Genitourinary: reports: No Symptoms Breasts: reports: No Symptoms Reported Musculoskeletal: reports: No Symptoms Integumentary: reports: No Symptoms Neurological: reports: No Symptoms Endocrine: reports: No Symptoms Hematology/Lymphatic: reports: No Symptoms Psychiatric: reports: No Symptoms Physical Exam Vital Sings: Vital Signs Temperature 98.4 F 07/16/16 16:59 Pulse Rate 84 07/16/16 16:59 Respiratory Rate 20 07/16/16 21:00 Blood Pressure 109/64 07/16/16 16:59 O2 Sat by Pulse Oximetry (%) 97 07/16/16 21:00 Constitutional: Yes: Anxious, Mild Distress, Thin Eyes: Yes: Conjunctiva Clear, EOM Intact HENT: Yes: Atraumatic, Normocephalic Neck: Yes: Supple, Trachea Midline Cardiovascular: Yes: Tachycardia Respiratory: Yes: Cough, Diminished, Rhonchi, SOB, Tachypnea, Wheezes. No: Accessory Muscle Use, Stridor ...Inspection: Yes: WNL ...Clubbing: No Gastrointestinal: Yes: Normal Bowel Sounds, Soft Musculoskeletal: Yes: WNL Extremities: Yes: WNL Edema: No Peripheral Pulses WNL: Yes Integumentary: Yes: WNL Neurological: Yes: WNL, Alert, Oriented ...Motor Strength: WNL Psychiatric: Yes: WNL, Alert, Oriented Labs: CBC, BMP 07/15/16 06:30 07/17/16 06:00 Imaging - Results Chest X-ray: Report Reviewed, Image Reviewed Assessment/Plan IMP: Acute bronchospasm due to Influenza A No evidence of PNA ESRD on HD PPM Above history PLAN: Medrol D/C Albuterol -> suspect that this is making her tremulous Cepacol O2 as needed HD per Renal In isolation Complete Tamiflu course Monitor off ABX Will follow Thank you. Dr Gomez
[2016-07-17] MEDS ORDERED: BENZOCAINE/MENTH/CETYLPYRD CL 1 EACH LOZENGE MM PRN (10:45)
[2016-07-17] MEDS ORDERED: guaiFENesin 200 MG/10 ML 10 ML UNIT-DOSE CUPS PO PRN (11:28)
[2016-07-17] MEDS ORDERED: guaiFENesin/CODEINE 5 ML UNIT-DOSE CUPS PO PRN (11:28)
--- NOTE | 2016-07-17 12:52 | PN ---
Progress Note, Physician Chief Complaint: anxious Gets tremulous when taking Albuterol nebs daughter at side - Current Medication List Current Medications: Active Medications Acetaminophen (Tylenol -) 650 mg PO Q6H PRN PRN Reason: FEVER OR PAIN Last Admin: 07/16/16 00:27 Dose: 650 mg Benzocaine/Menthol (Cepacol Lozenge -) 1 each MM Q4H PRN PRN Reason: SORE THROAT Last Admin: 07/17/16 12:44 Dose: 1 each Guaifenesin (Robitussin -) 10 ml PO Q6H PRN PRN Reason: COUGH Guaifenesin/Codeine Phosphate (Robitussin Ac -) 5 ml PO HS PRN PRN Reason: COUGH Ipratropium [place] (Atrovent 0.02% Nebulizer -) 1 amp NEB TIDR [facility] Levothyroxine Sodium (Synthroid -) 100 mcg PO DAILY@0600 [facility] Last Admin: 07/17/16 06:24 Dose: 100 mcg Methylprednisolone Sodium Succinate (Solu-Medrol -) 40 mg IVPB Q8H-IV [facility] Last Admin: 07/17/16 09:42 Dose: Not Given Metoprolol Succinate (Toprol Xl -) 50 mg PO MoWeFr [facility] Last Admin: 07/16/16 09:15 Dose: 50 mg Midodrine (Proamatine -) 10 mg PO [facility] Last Admin: 07/16/16 22:13 Dose: 10 mg Midodrine (Proamatine -) 20 mg PO MoWeFr [facility] Last Admin: 07/15/16 11:55 Dose: Not Given Oseltamivir Phosphate (Tamiflu -) 30 mg PO MoWeFr@1000 [facility] Stop: 07/20/16 10:01 Last Admin: 07/15/16 11:55 Dose: 30 mg Pantoprazole Sodium (Protonix -) 40 mg PO DAILY [facility] Last Admin: 07/17/16 09:35 Dose: 40 mg Pregabalin (Lyrica -) 75 mg PO DAILY [facility] Last Admin: 07/17/16 09:35 Dose: 75 mg Sertraline HCl (Zoloft -) 50 mg PO DAILY [facility] Last Admin: 07/17/16 09:41 Dose: 50 mg Sevelamer Carbonate (Renvela -) 1,600 mg PO 0900,1200,1730 [facility] Last Admin: 07/17/16 12:44 Dose: 1,600 mg Simethicone (Mylicon -) 80 mg PO Q4H PRN PRN Reason: GAS Sitagliptin Phosphate (Januvia -) 50 mg PO DAILY@0700 [facility] Last Admin: 07/17/16 06:24 Dose: 50 mg - Objective Vital Signs: Vital Signs Temperature 98.4 F 07/16/16 16:59 Pulse Rate 84 07/16/16 16:59 Respiratory Rate 20 07/16/16 21:00 Blood Pressure 109/64 07/16/16 16:59 O2 Sat by Pulse Oximetry (%) 97 07/16/16 21:00 Constitutional: Yes: Anxious Cardiovascular: Yes: Regular Rate and Rhythm Respiratory: Yes: Diminished, Rhonchi (less) Gastrointestinal: Yes: Normal Bowel Sounds, Soft. No: Distention, Tenderness Edema: No Labs: CBC, BMP 07/15/16 06:30 07/17/16 06:00 Problem List - Problems (1) ESRD on hemodialysis Code(s): N18.6 - END STAGE RENAL DISEASE Z99.2 - DEPENDENCE ON RENAL DIALYSIS (2) Fever Code(s): R50.9 - FEVER, UNSPECIFIED Qualifiers: Qualified Code(s): R50.81 - Fever presenting with conditions classified elsewhere (3) Influenza A Code(s): J10.1 - FLU DUE TO OTH IDENT INFLUENZA VIRUS W OTH RESP MANIFEST (4) Troponin level elevated Code(s): R79.89 - OTHER SPECIFIED ABNORMAL FINDINGS OF BLOOD CHEMISTRY Assessment/Plan PLAN complete Tamiflu Increased solumedrol Spoke with Pulmonary pt is now on Atrovent nebs nebs standing dose Continue with meds DVT prophylaxis - Heparin sc PT eval Pt is getting more confused and has been wandering to the other pt's room as per night nurse pt has been deconditioned during her stay She will need STR upon discharge d/w daughter
[2016-07-17] MEDS: IPRATROPIUM BR 0.02% 0.5 MG/2.5 ML VIAL.NEB. NEB SCH ×2 (14:20→22:34)
[2016-07-17] MEDS: INSULIN SLIDING SCALE (NOVOLOG) 1 VIAL SQ SCH (17:52)
[2016-07-17] MEDS: MIDODRINE HCL 5 MG TABLET PO SCH (22:23)
[2016-07-18] MEDS: methylPREDNISolone NA SUCC 40 MG/1 ML VIAL IVPB SCH ×3 (02:06→18:15)
[2016-07-18] MEDS: sitaGLIPtin PHOSPHATE 50 MG TABLET PO SCH (06:14)
[2016-07-18] MEDS: LEVOTHYROXINE NA 100 MCG TABLET (FP) PO SCH (06:14)
[2016-07-18] MEDS: IPRATROPIUM BR 0.02% 0.5 MG/2.5 ML VIAL.NEB. NEB SCH ×3 (06:44→22:50)
[2016-07-18] MEDS: INSULIN SLIDING SCALE (NOVOLOG) 1 VIAL SQ SCH ×3 (06:46→17:04)
[2016-07-18 08:47] LABS: MCH 29.5 pg (25.7-33.7); MCHC 31.5 g/dl (32.0-36.0); MEAN CELL VOLUME 93.6 fl (80-96); MEAN PLT VOLUME 10.2 fl (7.5-11.1); PLATELET COUNT 102 K/MM3 (134-434); RDW 15.8 % (11.6-15.6); WHITE BLOOD COUNT 14.4 K/mm3 (4.0-10.0)
[2016-07-18] MEDS: SEVELAMER CARBONATE 800 MG TAB (FP) PO SCH ×3 (08:52→18:15)
[2016-07-18 09:14] LABS: ALBUMIN 3.4 g/dl (3.4-5.0); CALCIUM 9.6 mg/dL (8.5-10.1); PHOSPHOROUS 5.6 mg/dL (2.5-4.9); TOT PROT 7.1 g/dl (6.4-8.2)
--- NOTE | 2016-07-18 09:54 | PN ---
Progress Note, Physician History of Present Illness: Dyspnea and cough improving. Feels weak. - Current Medication List Current Medications: Active Medications Acetaminophen (Tylenol -) 650 mg PO Q6H PRN PRN Reason: FEVER OR PAIN Last Admin: 07/16/16 00:27 Dose: 650 mg Benzocaine/Menthol (Cepacol Lozenge -) 1 each MM Q4H PRN PRN Reason: SORE THROAT Last Admin: 07/17/16 12:44 Dose: 1 each Guaifenesin (Robitussin -) 10 ml PO Q6H PRN PRN Reason: COUGH Guaifenesin/Codeine Phosphate (Robitussin Ac -) 5 ml PO HS PRN PRN Reason: COUGH Last Admin: 07/17/16 22:24 Dose: 5 ml Insulin Aspart (Novolog Vial Sliding Scale -) 1 vial SQ TIDAC [facility] PRN Reason: Protocol Last Admin: 07/18/16 06:46 Dose: 8 units Ipratropium [place] (Atrovent 0.02% Nebulizer -) 1 amp NEB TIDR [facility] Last Admin: 07/18/16 06:44 Dose: 1 amp Levothyroxine Sodium (Synthroid -) 100 mcg PO DAILY@0600 [facility] Last Admin: 07/18/16 06:14 Dose: 100 mcg Methylprednisolone Sodium Succinate (Solu-Medrol -) 40 mg IVPB Q8H-IV [facility] Last Admin: 07/18/16 02:06 Dose: 40 mg Metoprolol Succinate (Toprol Xl -) 50 mg PO MoWeFr [facility] Last Admin: 07/16/16 09:15 Dose: 50 mg Midodrine (Proamatine -) 10 mg PO [facility] Last Admin: 07/17/16 22:23 Dose: 10 mg Midodrine (Proamatine -) 20 mg PO MoWeFr [facility] Last Admin: 07/15/16 11:55 Dose: Not Given Oseltamivir Phosphate (Tamiflu -) 30 mg PO MoWeFr@1000 [facility] Stop: 07/20/16 10:01 Last Admin: 07/15/16 11:55 Dose: 30 mg Pantoprazole Sodium (Protonix -) 40 mg PO DAILY [facility] Last Admin: 07/17/16 09:35 Dose: 40 mg Pregabalin (Lyrica -) 75 mg PO DAILY [facility] Last Admin: 07/17/16 09:35 Dose: 75 mg Sertraline HCl (Zoloft -) 50 mg PO DAILY [facility] Last Admin: 07/17/16 09:41 Dose: 50 mg Sevelamer Carbonate (Renvela -) 1,600 mg PO 0900,1200,1730 [facility] Last Admin: 07/18/16 08:52 Dose: 1,600 mg Simethicone (Mylicon -) 80 mg PO Q4H PRN PRN Reason: GAS Last Admin: 07/17/16 22:24 Dose: 80 mg Sitagliptin Phosphate (Januvia -) 50 mg PO DAILY@0700 [facility] Last Admin: 07/18/16 06:14 Dose: 50 mg - Objective Vital Signs: Vital Signs Temperature 97.5 F L 07/18/16 06:53 Pulse Rate 94 H 07/18/16 06:53 Respiratory Rate 20 07/18/16 06:53 Blood Pressure 118/58 07/18/16 06:53 O2 Sat by Pulse Oximetry (%) 95 07/17/16 21:00 Constitutional: Yes: No Distress, Calm Neck: Yes: Supple Cardiovascular: Yes: Regular Rate and Rhythm Respiratory: Yes: Regular, Diminished Gastrointestinal: Yes: Normal Bowel Sounds, Soft Edema: No Labs: CBC, BMP 07/18/16 08:35 07/18/16 08:35 Problem List - Problems (1) ESRD on hemodialysis Code(s): N18.6 - END STAGE RENAL DISEASE Z99.2 - DEPENDENCE ON RENAL DIALYSIS (2) Fever Code(s): R50.9 - FEVER, UNSPECIFIED Qualifiers: Qualified Code(s): R50.81 - Fever presenting with conditions classified elsewhere (3) Influenza A Code(s): J10.1 - FLU DUE TO OTH IDENT INFLUENZA VIRUS W OTH RESP MANIFEST (4) Troponin level elevated Code(s): R79.89 - OTHER SPECIFIED ABNORMAL FINDINGS OF BLOOD CHEMISTRY (5) Aortic stenosis Code(s): I35.0 - NONRHEUMATIC AORTIC (VALVE) STENOSIS Qualifiers: Qualified Code(s): I35.0 - Nonrheumatic aortic (valve) stenosis (6) CAD (coronary artery disease) Code(s): I25.10 - ATHSCL HEART DISEASE OF [place] CORONARY ARTERY W/O ANG PCTRS Qualifiers: Qualified Code(s): I25.10 - Atherosclerotic heart disease of [place] coronary artery without angina pectoris (7) Diabetes Code(s): E11.9 - TYPE 2 DIABETES MELLITUS WITHOUT COMPLICATIONS Qualifiers: Qualified Code(s): E11.9 - Type 2 diabetes mellitus without complications (8) ESRD on dialysis Code(s): N18.6 - END STAGE RENAL DISEASE Z99.2 - DEPENDENCE ON RENAL DIALYSIS (9) HTN (hypertension) Code(s): I10 - ESSENTIAL (PRIMARY) HYPERTENSION Qualifiers: Qualified Code(s): I15.0 - Renovascular hypertension (10) History of percutaneous coronary intervention Code(s): Z98.89 - OTHER SPECIFIED POSTPROCEDURAL STATES * DO NOT USE * (11) Hyperlipidemia Code(s): E78.5 - HYPERLIPIDEMIA, UNSPECIFIED Qualifiers: Qualified Code(s): E78.0 - Pure hypercholesterolemia (12) Hypothyroidism Code(s): E03.9 - HYPOTHYROIDISM, UNSPECIFIED Qualifiers: Qualified Code(s): E03.9 - Hypothyroidism, unspecified (13) Single implantable cardioverter-defibrillator (ICD) in situ Code(s): Z95.810 - PRESENCE OF AUTOMATIC (IMPLANTABLE) CARDIAC DEFIBRILLATOR (14) Systolic dysfunction without heart failure Code(s): I51.9 - HEART DISEASE, UNSPECIFIED (15) Subendocardial ischemia Code(s): I24.8 - OTHER FORMS OF ACUTE ISCHEMIC HEART DISEASE Assessment/Plan 1. Influenza A 2. LV systolic dysfunction with history of failure, currently compensated S/P ICD 3. Elevated troponin - subendocardial ischemia 4. CAD, s/p PCI/stent, angina 5. HTN/HCVD 6. ESRD on HD via AVF 7. Type 2 DM 8. Hypercholesterolemia 9. Aortic stenosis (mild) and mild aortic regurgitation 10. Anemia 11. Hypothyroidism PLAN: 1. Continue Metoprolol ER 50 mg qd and Midodrine 20/10 qd as tolerated 2. Continue ASA 81 qd and complete 5 day Tamiflu course 3. ICD interrogation as outpatient in the office 4. HD as scheduled 5. PT->SNF
[2016-07-18] MEDS: METOPROLOL SUCCINATE 50 MG TAB.SR.24H (FP) PO SCH (11:14)
[2016-07-18] MEDS: MIDODRINE HCL 5 MG TABLET PO SCH ×2 (11:22→23:11)
[2016-07-18] MEDS ORDERED: INSULIN (NOVOLOG) ASPART 100 UNITS/ML 10ML VIAL ONE (12:39)
--- NOTE | 2016-07-18 13:07 | PN ---
Progress Note (short form) - Note Progress Note: pt seen/ examined chart reviewed feels better still has periods of spasm cough + afebrile Vital Signs Temp 97.5 F L 07/18/16 06:53 Pulse 94 H 07/18/16 06:53 Resp 20 07/18/16 06:53 BP 118/58 07/18/16 06:53 Pulse Ox 95 07/17/16 21:00 Intake & Output 07/17/16 07/18/16 07/18/16 23:59 11:59 23:59 Intake Total 480 Balance 480 Weight 145 lb 6 oz Intake: Oral 480 Other: Voiding Method Toilet Toilet # Unmeasured Voids Void 1 2 Bowel Movement No No # Bowel Movements 0 Weight Measurement Method Built in [facility] Active Medications Acetaminophen (Tylenol -) 650 mg PO Q6H PRN PRN Reason: FEVER OR PAIN Last Admin: 07/16/16 00:27 Dose: 650 mg Benzocaine/Menthol (Cepacol Lozenge -) 1 each MM Q4H PRN PRN Reason: SORE THROAT Last Admin: 07/17/16 12:44 Dose: 1 each Guaifenesin (Robitussin -) 10 ml PO Q6H PRN PRN Reason: COUGH Guaifenesin/Codeine Phosphate (Robitussin Ac -) 5 ml PO HS PRN PRN Reason: COUGH Last Admin: 07/17/16 22:24 Dose: 5 ml Insulin Aspart (Novolog Vial Sliding Scale -) 1 vial SQ TIDAC [facility] PRN Reason: Protocol Last Admin: 07/18/16 12:47 Dose: Not Given Ipratropium [place] (Atrovent 0.02% Nebulizer -) 1 amp NEB TIDR [facility] Last Admin: 07/18/16 06:44 Dose: 1 amp Levothyroxine Sodium (Synthroid -) 100 mcg PO DAILY@0600 [facility] Last Admin: 07/18/16 06:14 Dose: 100 mcg Methylprednisolone Sodium Succinate (Solu-Medrol -) 40 mg IVPB Q8H-IV [facility] Last Admin: 07/18/16 11:22 Dose: 40 mg Metoprolol Succinate (Toprol Xl -) 50 mg PO MoWeFr [facility] Last Admin: 07/18/16 11:14 Dose: Not Given Midodrine (Proamatine -) 10 mg PO HS [facility] Last Admin: 07/17/16 22:23 Dose: 10 mg Midodrine (Proamatine -) 20 mg PO MoWeFr [facility] Last Admin: 07/18/16 11:22 Dose: 20 mg Pantoprazole Sodium (Protonix -) 40 mg PO DAILY [facility] Last Admin: 07/17/16 09:35 Dose: 40 mg Pregabalin (Lyrica -) 75 mg PO DAILY [facility] Last Admin: 07/17/16 09:35 Dose: 75 mg Sertraline HCl (Zoloft -) 50 mg PO DAILY [facility] Last Admin: 07/17/16 09:41 Dose: 50 mg Sevelamer Carbonate (Renvela -) 1,600 mg PO 0900,1200,1730 [facility] Last Admin: 07/18/16 12:45 Dose: 1,600 mg Simethicone (Mylicon -) 80 mg PO Q4H PRN PRN Reason: GAS Last Admin: 07/17/16 22:24 Dose: 80 mg Sitagliptin Phosphate (Januvia -) 50 mg PO DAILY@0700 [facility] Last Admin: 07/18/16 06:14 Dose: 50 mg CBC, BMP 07/18/16 08:35 07/18/16 08:35 Physical exam. Constitutional: Yes: Alert /awake/ sitting in chair Cardiovascular: Yes: Regular Rate and Rhythm Respiratory: Yes: Diminished, Bilateral rhonchi Gastrointestinal: Yes: Normal Bowel Sounds, Soft. No: Distention, Tenderness Edema: No Problem List - Problems (1) ESRD on hemodialysis Code(s): N18.6 - END STAGE RENAL DISEASE Z99.2 - DEPENDENCE ON RENAL DIALYSIS (2) Fever Code(s): R50.9 - FEVER, UNSPECIFIED Qualifiers: Qualified Code(s): R50.81 - Fever presenting with conditions classified elsewhere (3) Influenza A Code(s): J10.1 - FLU DUE TO OTH IDENT INFLUENZA VIRUS W OTH RESP MANIFEST (4) Troponin level elevated Code(s): R79.89 - OTHER SPECIFIED ABNORMAL FINDINGS OF BLOOD CHEMISTRY Assessment/Plan meds reviewed completed Tamiflu solumedrol Continue with meds DVT prophylaxis - Heparin sc PT eval pulmonary to follow should benefit from str will follow
--- NOTE | 2016-07-18 14:08 | PN ---
Progress Note (short form) - Note Progress Note: Feels better today. Less SOB and wheezing and sore throat. (?) confusion last night. Insomnia. Intake & Output 07/15/16 07/16/16 07/17/16 07/18/16 23:59 23:59 23:59 23:59 Intake Total 60 1010 700 Balance 60 1010 700 Weight 146 lb 6 oz 144 lb 5 oz 145 lb 6 oz Last Vital Signs Temp Pulse Resp BP Pulse Ox 97.5 F L 94 H 20 118/58 95 07/18/16 06:53 07/18/16 06:53 07/18/16 06:53 07/18/16 06:53 07/17/16 21:00 Active Medications Acetaminophen (Tylenol -) 650 mg PO Q6H PRN PRN Reason: FEVER OR PAIN Last Admin: 07/16/16 00:27 Dose: 650 mg Benzocaine/Menthol (Cepacol Lozenge -) 1 each MM Q4H PRN PRN Reason: SORE THROAT Last Admin: 07/17/16 12:44 Dose: 1 each Guaifenesin (Robitussin -) 10 ml PO Q6H PRN PRN Reason: COUGH Guaifenesin/Codeine Phosphate (Robitussin Ac -) 5 ml PO HS PRN PRN Reason: COUGH Last Admin: 07/17/16 22:24 Dose: 5 ml Insulin Aspart (Novolog Vial Sliding Scale -) 1 vial SQ TIDAC [facility] PRN Reason: Protocol Last Admin: 07/18/16 12:47 Dose: Not Given Ipratropium [place] (Atrovent 0.02% Nebulizer -) 1 amp NEB TIDR [facility] Last Admin: 07/18/16 06:44 Dose: 1 amp Levothyroxine Sodium (Synthroid -) 100 mcg PO DAILY@0600 [facility] Last Admin: 07/18/16 06:14 Dose: 100 mcg Methylprednisolone Sodium Succinate (Solu-Medrol -) 40 mg IVPB Q8H-IV [facility] Last Admin: 07/18/16 11:22 Dose: 40 mg Metoprolol Succinate (Toprol Xl -) 50 mg PO MoWeFr [facility] Last Admin: 07/18/16 11:14 Dose: Not Given Midodrine (Proamatine -) 10 mg PO HS [facility] Last Admin: 07/17/16 22:23 Dose: 10 mg Midodrine (Proamatine -) 20 mg PO MoWeFr [facility] Last Admin: 07/18/16 11:22 Dose: 20 mg Pantoprazole Sodium (Protonix -) 40 mg PO DAILY [facility] Last Admin: 07/17/16 09:35 Dose: 40 mg Pregabalin (Lyrica -) 75 mg PO DAILY [facility] Last Admin: 07/17/16 09:35 Dose: 75 mg Sertraline HCl (Zoloft -) 50 mg PO DAILY [facility] Last Admin: 07/17/16 09:41 Dose: 50 mg Sevelamer Carbonate (Renvela -) 1,600 mg PO 0900,1200,1730 [facility] Last Admin: 07/18/16 12:45 Dose: 1,600 mg Simethicone (Mylicon -) 80 mg PO Q4H PRN PRN Reason: GAS Last Admin: 07/17/16 22:24 Dose: 80 mg Sitagliptin Phosphate (Januvia -) 50 mg PO DAILY@0700 [facility] Last Admin: 07/18/16 06:14 Dose: 50 mg Constitutional: Yes: NAD Eyes: Yes: Conjunctiva Clear, EOM Intact HENT: Yes: Atraumatic, Normocephalic Neck: Yes: Supple, Trachea Midline Cardiovascular: Yes: Tachycardia Respiratory: Yes: Cough, Diminished, Rhonchi, No Wheezes. No: Accessory Muscle Use, Stridor ...Inspection: Yes: WNL ...Clubbing: No Gastrointestinal: Yes: Normal Bowel Sounds, Soft Musculoskeletal: Yes: WNL Extremities: Yes: WNL Edema: No Peripheral Pulses WNL: Yes Integumentary: Yes: WNL Neurological: Yes: WNL, Alert, Oriented ...Motor Strength: WNL Psychiatric: Yes: WNL, Alert, Oriented Labs: Laboratory Results - last 24 hr 07/17/16 07/18/16 07/18/16 17:50 06:34 08:35 WBC 14.4 H D RBC 4.19 Hgb 12.4 Hct 39.2 MCV 93.6 MCHC 31.5 L RDW 15.8 H Plt Count 102 L MPV 10.2 Sodium Potassium Chloride Carbon Dioxide Anion Gap BUN Creatinine Creat Clearance w eGFR POC Glucometer 383 309 Random Glucose Calcium Phosphorus Total Bilirubin AST ALT Alkaline Phosphatase Total Protein Albumin 07/18/16 07/18/16 08:35 12:46 WBC RBC Hgb Hct MCV MCHC RDW Plt Count MPV Sodium 139 Potassium 4.8 Chloride 96 L Carbon Dioxide 26 Anion Gap 17 H BUN 104 H D Creatinine 8.0 H* Creat Clearance w eGFR 4.68 POC Glucometer 134 Random Glucose 213 H D Calcium 9.6 Phosphorus 5.6 H Total Bilirubin 1.0 D AST 26 D ALT 43 Alkaline Phosphatase 202 H Total Protein 7.1 Albumin 3.4 Assessment/Plan IMP: Acute bronchospasm due to Influenza A No evidence of PNA ESRD on HD PPM Above history PLAN: Taper Medrol Monitor off Albuterol -> (suspect that this is making her tremulous) Cepacol O2 as needed HD per Renal In isolation Complete Tamiflu course Monitor off ABX Dr Gomez
--- NOTE | 2016-07-18 16:35 | PN ---
Progress Note (short form) - Note Progress Note: Renal Follow up for ESRD on HD Pt seen and examined at the bedside feels better no chest pain reports weight gain Vital Signs Temperature 98.0 F 07/18/16 14:00 Pulse Rate 94 H 07/18/16 14:00 Respiratory Rate 20 07/18/16 14:00 Blood Pressure 113/72 07/18/16 14:00 O2 Sat by Pulse Oximetry (%) 95 07/18/16 09:00 Intake & Output 07/15/16 07/16/16 07/17/16 07/18/16 23:59 23:59 23:59 23:59 Intake Total 60 1010 700 Balance 60 1010 700 Weight 146 lb 6 oz 144 lb 5 oz 145 lb 6 oz Gen: NAD CVS: RRR, No M/R Lungs: CTA Abd: soft NT/ND Ext: No edema, clubbing or cyanosis Access: left ARM aVF CBC, BMP 07/18/16 08:35 07/18/16 08:35 Current Medications Acetaminophen (Tylenol -) 650 mg PO Q6H PRN PRN Reason: FEVER OR PAIN Last Admin: 07/16/16 00:27 Dose: 650 mg Benzocaine/Menthol (Cepacol Lozenge -) 1 each MM Q4H PRN PRN Reason: SORE THROAT Last Admin: 07/17/16 12:44 Dose: 1 each Guaifenesin (Robitussin -) 10 ml PO Q6H PRN PRN Reason: COUGH Guaifenesin/Codeine Phosphate (Robitussin Ac -) 5 ml PO HS PRN PRN Reason: COUGH Last Admin: 07/17/16 22:24 Dose: 5 ml Insulin Aspart (Novolog Vial Sliding Scale -) 1 vial SQ TIDAC [facility] PRN Reason: Protocol Last Admin: 07/18/16 12:47 Dose: Not Given Ipratropium [place] (Atrovent 0.02% Nebulizer -) 1 amp NEB TIDR [facility] Last Admin: 07/18/16 13:45 Dose: 1 amp Levothyroxine Sodium (Synthroid -) 100 mcg PO DAILY@0600 [facility] Last Admin: 07/18/16 06:14 Dose: 100 mcg Methylprednisolone Sodium Succinate (Solu-Medrol -) 40 mg IVPB Q8H-IV [facility] Last Admin: 07/18/16 11:22 Dose: 40 mg Metoprolol Succinate (Toprol Xl -) 50 mg PO MoWeFr [facility] Last Admin: 07/18/16 11:14 Dose: Not Given Midodrine (Proamatine -) 10 mg PO HS [facility] Last Admin: 07/17/16 22:23 Dose: 10 mg Midodrine (Proamatine -) 20 mg PO MoWeFr [facility] Last Admin: 07/18/16 11:22 Dose: 20 mg Pantoprazole Sodium (Protonix -) 40 mg PO DAILY [facility] Last Admin: 07/17/16 09:35 Dose: 40 mg Pregabalin (Lyrica -) 75 mg PO DAILY [facility] Last Admin: 07/17/16 09:35 Dose: 75 mg Sertraline HCl (Zoloft -) 50 mg PO DAILY [facility] Last Admin: 07/17/16 09:41 Dose: 50 mg Sevelamer Carbonate (Renvela -) 1,600 mg PO 0900,1200,1730 [facility] Last Admin: 07/18/16 12:45 Dose: 1,600 mg Simethicone (Mylicon -) 80 mg PO Q4H PRN PRN Reason: GAS Last Admin: 07/17/16 22:24 Dose: 80 mg Sitagliptin Phosphate (Januvia -) 50 mg PO DAILY@0700 [facility] Last Admin: 07/18/16 06:14 Dose: 50 mg A/P 89 year old woman with PMhx of ESRD on HD (MWF), DM Type 2, CAD, Hypothyroidism , Anemia, Renal Osteodystrophy presented with persist cough and found to have influenza A. #ESRD on HD for HD today UF as tolerated #Influenza A s/p Tamiflu as per ID #Renal Osteodystrphy Continue Sevelamer TID with meals Thank you Yahir Cortez DO
[2016-07-18] MEDS: PREGABALIN 25 MG CAPSULE PO SCH (23:06)
[2016-07-18] MEDS: OSELTAMIVIR PHOSPHATE 30 MG CAPSULE PO SCH (23:10)
[2016-07-18] MEDS: SERTRALINE HCL 50 MG TABLET (FP) PO SCH (23:10)
[2016-07-18] MEDS: PANTOPRAZOLE 40 MG TABLET (FP) PO SCH (23:10)
[2016-07-19] MEDS: methylPREDNISolone NA SUCC 40 MG/1 ML VIAL IVPB SCH ×2 (02:40→10:42)
[2016-07-19] MEDS: LEVOTHYROXINE NA 100 MCG TABLET (FP) PO SCH (06:23)
[2016-07-19] MEDS: INSULIN SLIDING SCALE (NOVOLOG) 1 VIAL SQ SCH ×2 (06:23→12:30)
[2016-07-19] MEDS: sitaGLIPtin PHOSPHATE 50 MG TABLET PO SCH (06:23)
[2016-07-19] MEDS: IPRATROPIUM BR 0.02% 0.5 MG/2.5 ML VIAL.NEB. NEB SCH ×2 (06:54→14:09)
[2016-07-19] MEDS: SEVELAMER CARBONATE 800 MG TAB (FP) PO SCH ×2 (08:28→12:30)
--- NOTE | 2016-07-19 10:00 | PN ---
Progress Note, Physician Chief Complaint: Events noted Isolated due to Influenza Dyspnea improved History of Present Illness: Patient was seen and examined. Awake and alert. Chart was reviewed Denies chest pain or palpitations. Cough and dyspnea improved - Current Medication List Current Medications: Active Medications Acetaminophen (Tylenol -) 650 mg PO Q6H PRN PRN Reason: FEVER OR PAIN Last Admin: 07/16/16 00:27 Dose: 650 mg Benzocaine/Menthol (Cepacol Lozenge -) 1 each MM Q4H PRN PRN Reason: SORE THROAT Last Admin: 07/17/16 12:44 Dose: 1 each Guaifenesin (Robitussin -) 10 ml PO Q6H PRN PRN Reason: COUGH Guaifenesin/Codeine Phosphate (Robitussin Ac -) 5 ml PO HS PRN PRN Reason: COUGH Last Admin: 07/17/16 22:24 Dose: 5 ml Insulin Aspart (Novolog Vial Sliding Scale -) 1 vial SQ TIDAC [facility] PRN Reason: Protocol Last Admin: 07/19/16 06:23 Dose: 2 units Ipratropium [place] (Atrovent 0.02% Nebulizer -) 1 amp NEB TIDR [facility] Last Admin: 07/19/16 06:54 Dose: 1 amp Levothyroxine Sodium (Synthroid -) 100 mcg PO DAILY@0600 [facility] Last Admin: 07/19/16 06:23 Dose: 100 mcg Methylprednisolone Sodium Succinate (Solu-Medrol -) 40 mg IVPB Q8H-IV [facility] Last Admin: 07/19/16 02:40 Dose: 40 mg Metoprolol Succinate (Toprol Xl -) 50 mg PO MoWeFr [facility] Last Admin: 07/18/16 11:14 Dose: Not Given Midodrine (Proamatine -) 10 mg PO HS [facility] Last Admin: 07/18/16 23:11 Dose: 10 mg Midodrine (Proamatine -) 20 mg PO MoWeFr [facility] Last Admin: 07/18/16 11:22 Dose: 20 mg Pantoprazole Sodium (Protonix -) 40 mg PO DAILY [facility] Last Admin: 07/18/16 23:10 Dose: 40 mg Pregabalin (Lyrica -) 75 mg PO DAILY [facility] Last Admin: 07/18/16 23:06 Dose: 75 mg Sertraline HCl (Zoloft -) 50 mg PO DAILY [facility] Last Admin: 07/18/16 23:10 Dose: 50 mg Sevelamer Carbonate (Renvela -) 1,600 mg PO 0900,1200,1730 [facility] Last Admin: 07/19/16 08:28 Dose: 1,600 mg Simethicone (Mylicon -) 80 mg PO Q4H PRN PRN Reason: GAS Last Admin: 07/17/16 22:24 Dose: 80 mg Sitagliptin Phosphate (Januvia -) 50 mg PO DAILY@0700 [facility] Last Admin: 07/19/16 06:23 Dose: 50 mg - Objective Vital Signs: Vital Signs Temperature 97.9 F 07/19/16 06:25 Pulse Rate 92 H 07/19/16 06:25 Respiratory Rate 20 07/19/16 06:25 Blood Pressure 126/69 07/19/16 06:25 O2 Sat by Pulse Oximetry (%) 94 L 07/18/16 21:00 Neck: Yes: Supple Cardiovascular: Yes: Regular Rate and Rhythm, S1, S2 Respiratory: Yes: Diminished Gastrointestinal: Yes: Normal Bowel Sounds, Soft. No: Tenderness Edema: No Labs: CBC, BMP 07/18/16 08:35 07/18/16 08:35 Assessment/Plan 1. Influenza A 2. LV systolic dysfunction with history of failure, currently compensated S/P ICD 3. Elevated troponin - subendocardial ischemia 4. CAD, s/p PCI/stent, angina 5. HTN/HCVD 6. ESRD on HD via AVF 7. Type 2 DM 8. Hypercholesterolemia 9. Aortic stenosis (mild) and mild aortic regurgitation 10. Anemia 11. Hypothyroidism PLAN: 1. Continue Metoprolol ER 50 mg qd and Midodrine 20/10 qd as tolerated 2. Continue ASA 81 qd 3. ICD interrogation as outpatient in the office 4. HD as scheduled 5. Tamiflu given Further plans are to follow Len Guevara MD
[2016-07-19] MEDS: SERTRALINE HCL 50 MG TABLET (FP) PO SCH (10:42)
[2016-07-19] MEDS: PREGABALIN 25 MG CAPSULE PO SCH (10:42)
[2016-07-19] MEDS: PANTOPRAZOLE 40 MG TABLET (FP) PO SCH (10:42)
--- NOTE | 2016-07-19 10:42 | PN ---
Progress Note (short form) - Note Progress Note: Continues to feel better. Tired due to poor sleep overnight. Less SOB. No wheezing and sore throat has resolved. Intake & Output 07/16/16 07/17/16 07/18/16 07/19/16 23:59 23:59 23:59 23:59 Intake Total 1010 700 350 Balance 1010 700 350 Weight 146 lb 6 oz 144 lb 5 oz 145 lb 6 oz 140 lb 1 oz Last Vital Signs Temp Pulse Resp BP Pulse Ox 97.9 F 92 H 20 126/69 94 L 07/19/16 06:25 07/19/16 06:25 07/19/16 06:25 07/19/16 06:25 07/18/16 21:00 Active Medications Acetaminophen (Tylenol -) 650 mg PO Q6H PRN PRN Reason: FEVER OR PAIN Last Admin: 07/16/16 00:27 Dose: 650 mg Benzocaine/Menthol (Cepacol Lozenge -) 1 each MM Q4H PRN PRN Reason: SORE THROAT Last Admin: 07/17/16 12:44 Dose: 1 each Guaifenesin (Robitussin -) 10 ml PO Q6H PRN PRN Reason: COUGH Guaifenesin/Codeine Phosphate (Robitussin Ac -) 5 ml PO HS PRN PRN Reason: COUGH Last Admin: 07/17/16 22:24 Dose: 5 ml Insulin Aspart (Novolog Vial Sliding Scale -) 1 vial SQ TIDAC [facility] PRN Reason: Protocol Last Admin: 07/19/16 06:23 Dose: 2 units Ipratropium [place] (Atrovent 0.02% Nebulizer -) 1 amp NEB TIDR [facility] Last Admin: 07/19/16 06:54 Dose: 1 amp Levothyroxine Sodium (Synthroid -) 100 mcg PO DAILY@0600 [facility] Last Admin: 07/19/16 06:23 Dose: 100 mcg Metoprolol Succinate (Toprol Xl -) 50 mg PO MoWeFr [facility] Last Admin: 07/18/16 11:14 Dose: Not Given Midodrine (Proamatine -) 10 mg PO HS [facility] Last Admin: 07/18/16 23:11 Dose: 10 mg Midodrine (Proamatine -) 20 mg PO MoWeFr [facility] Last Admin: 07/18/16 11:22 Dose: 20 mg Pantoprazole Sodium (Protonix -) 40 mg PO DAILY [facility] Last Admin: 07/18/16 23:10 Dose: 40 mg Pregabalin (Lyrica -) 75 mg PO DAILY [facility] Last Admin: 07/18/16 23:06 Dose: 75 mg Sertraline HCl (Zoloft -) 50 mg PO DAILY [facility] Last Admin: 07/18/16 23:10 Dose: 50 mg Sevelamer Carbonate (Renvela -) 1,600 mg PO 0900,1200,1730 [facility] Last Admin: 07/19/16 08:28 Dose: 1,600 mg Simethicone (Mylicon -) 80 mg PO Q4H PRN PRN Reason: GAS Last Admin: 07/17/16 22:24 Dose: 80 mg Sitagliptin Phosphate (Januvia -) 50 mg PO DAILY@0700 [facility] Last Admin: 07/19/16 06:23 Dose: 50 mg Constitutional: Yes: NAD Eyes: Yes: Conjunctiva Clear, EOM Intact HENT: Yes: Atraumatic, Normocephalic Neck: Yes: Supple, Trachea Midline Cardiovascular: Yes: Tachycardia Respiratory: Yes: Cough, Diminished, few Rhonchi, No Wheezes. No: Accessory Muscle Use, Stridor ...Inspection: Yes: WNL ...Clubbing: No Gastrointestinal: Yes: Normal Bowel Sounds, Soft Musculoskeletal: Yes: WNL Extremities: Yes: WNL Edema: No Peripheral Pulses WNL: Yes Integumentary: Yes: WNL Neurological: Yes: WNL, Alert, Oriented ...Motor Strength: WNL Psychiatric: Yes: WNL, Alert, Oriented Labs: Laboratory Results - last 24 hr 07/18/16 07/18/16 07/19/16 12:46 17:03 06:21 POC Glucometer 134 193 174 Assessment/Plan IMP: Acute bronchospasm due to Influenza A No evidence of PNA ESRD on HD PPM PLAN: D/C Medrol Cepacol O2 as needed HD per Renal In isolation Complete Tamiflu course Monitor off ABX No Pulmonary contraindication for D/C Dr Gomez
--- NOTE | 2016-07-19 11:32 | PN ---
Progress Note (short form) - Note Progress Note: No complaints feels well No distress No SOB Vital Signs - 24 hr 07/18/16 07/18/16 07/18/16 13:25 14:00 17:38 Temperature 98.0 F 97.3 F L Pulse Rate 89 94 H 78 Respiratory 20 18 Rate Blood Pressure 113/72 118/68 O2 Sat by Pulse 94 L Oximetry (%) 07/18/16 07/18/16 07/18/16 19:05 19:10 19:40 Temperature 98.8 F Pulse Rate 73 67 79 Respiratory 18 18 18 Rate Blood Pressure 127/72 119/77 124/64 O2 Sat by Pulse Oximetry (%) 07/18/16 07/18/16 07/18/16 20:10 20:40 21:00 Temperature Pulse Rate 62 75 Respiratory 18 18 18 Rate Blood Pressure 119/73 98/66 O2 Sat by Pulse 94 L Oximetry (%) 07/18/16 07/18/16 07/18/16 21:10 21:40 22:10 Temperature Pulse Rate 79 80 78 Respiratory 18 18 18 Rate Blood Pressure 122/66 102/59 110/60 O2 Sat by Pulse Oximetry (%) 07/18/16 07/19/16 22:15 06:25 Temperature 97.9 F Pulse Rate 77 92 H Respiratory 18 20 Rate Blood Pressure 112/61 126/69 O2 Sat by Pulse Oximetry (%) Current Medications Generic Name Dose Route Start Last Admin Trade Name Freq PRN Reason Stop Dose Admin Acetaminophen 650 mg 07/11/16 23:32 07/16/16 00:27 Tylenol - PO 650 mg Q6H PRN Administration FEVER OR PAIN Benzocaine/Menthol 1 each 07/17/16 10:45 07/17/16 12:44 Cepacol Lozenge - MM 1 each Q4H PRN Administration SORE THROAT Guaifenesin 10 ml 07/17/16 11:28 Robitussin - PO Q6H PRN COUGH Guaifenesin/Codeine Phosphate 5 ml 07/17/16 11:28 07/17/16 22:24 Robitussin Ac - PO 5 ml HS PRN Administration COUGH Insulin Aspart 1 vial 07/18/16 07:00 07/19/16 06:23 Novolog Vial Sliding Scale - SQ 2 units TIDAC [facility] Administration Protocol Ipratropium [place] 1 amp 07/17/16 14:00 07/19/16 06:54 Atrovent 0.02% Nebulizer - NEB 1 amp TIDR [facility] Administration Levothyroxine Sodium 100 mcg 07/13/16 06:00 07/19/16 06:23 Synthroid - PO 100 mcg DAILY@0600 [facility] Administration Metoprolol Succinate 50 mg 07/15/16 10:00 07/18/16 11:14 Toprol Xl - PO Not Given MoWeFr [facility] Midodrine 10 mg 07/12/16 22:00 07/18/16 23:11 Proamatine - PO 10 mg HS [facility] Administration Midodrine 20 mg 07/15/16 10:00 07/18/16 11:22 Proamatine - PO 20 mg MoWeFr [facility] Administration Oseltamivir Phosphate 30 mg 07/20/16 10:00 Tamiflu - PO 07/20/16 10:01 MoWeFr@1000 [facility] Pantoprazole Sodium 40 mg 07/12/16 10:00 07/19/16 10:42 Protonix - PO 40 mg DAILY [facility] Administration Pregabalin 75 mg 07/12/16 10:00 07/19/16 10:42 Lyrica - PO 75 mg DAILY [facility] Administration Sertraline HCl 50 mg 07/12/16 10:00 07/19/16 10:42 Zoloft - PO 50 mg DAILY [facility] Administration Sevelamer Carbonate 1,600 mg 07/12/16 12:00 07/19/16 08:28 Renvela - PO 1,600 mg 0900,1200,1730 [facility] Administration Simethicone 80 mg 07/11/16 23:32 07/17/16 22:24 Mylicon - PO 80 mg Q4H PRN Administration GAS Sitagliptin Phosphate 50 mg 07/17/16 07:00 07/19/16 06:23 Januvia - PO 50 mg DAILY@0700 [facility] Administration Laboratory Results - last 24 hr 07/18/16 07/18/16 07/19/16 12:46 17:03 06:21 POC Glucometer 134 193 174 S1 S2 RRR Lungs no ronchi Abd- soft, NT No edema AAO x3 Not coughing No SOB PLAN -- complete Tamiflu-- last dose tomorrow after dialysis -- continue with meds -- Medrol dc by Pulmonary -- stable for dc to STR Problem List - Problems (1) ESRD on hemodialysis Code(s): N18.6 - END STAGE RENAL DISEASE Z99.2 - DEPENDENCE ON RENAL DIALYSIS (2) Fever Code(s): R50.9 - FEVER, UNSPECIFIED Qualifiers: Qualified Code(s): R50.81 - Fever presenting with conditions classified elsewhere (3) Influenza A Code(s): J10.1 - FLU DUE TO OTH IDENT INFLUENZA VIRUS W OTH RESP MANIFEST (4) Troponin level elevated Code(s): R79.89 - OTHER SPECIFIED ABNORMAL FINDINGS OF BLOOD CHEMISTRY
--- NOTE | 2016-07-19 11:43 | DS ---
Physical Examination Vital Signs: Vital Signs Temperature 97.9 F 07/19/16 06:25 Pulse Rate 92 H 07/19/16 06:25 Respiratory Rate 20 07/19/16 06:25 Blood Pressure 126/69 07/19/16 06:25 O2 Sat by Pulse Oximetry (%) 94 L 07/18/16 21:00 Constitutional: Yes: No Distress, Calm Cardiovascular: Yes: Regular Rate and Rhythm Respiratory: Yes: Diminished. No: Rales, Wheezes Gastrointestinal: Yes: Normal Bowel Sounds, Soft. No: Distention, Tenderness Edema: No Labs: CBC, BMP 07/18/16 08:35 07/18/16 08:35 Discharge Summary Reason For Visit: INFLU DUE TO INFLUENZA VIR/END STAGE RENAL Current Active Problems ESRD on hemodialysis (Acute) Fall (Acute) Fever (Acute) Hypoxic (Acute) Influenza A (Acute) Subendocardial ischemia (Acute) Troponin level elevated (Acute) Hospital Course: Pt admitted for respiratory distress- found to have Influenza A positive. She had reactive air way disease as result and was started on Tamiflu and Solumedrol Seen by ID and Pulmonary Will complete total 5 doses of tamiflu tomorrow after dialysis Course complicated by periods of confusion likely due to steroids and infection. Solumedrol discontinued today Pt is better , not coughing as much and is not in a respiratory distress. Also O2 sat is better on room air. Stable for dc to STR- she is deconditioned Condition: Good - Instructions Referrals: Aung Mondragon MD [Primary Care Provider] - Disposition: ALF FACILITY - Home Medications Comprehensive Discharge Medication List: Ambulatory Orders Levothyroxine [Synthroid -] 100 mcg PO DAILY 10/11/12 Sevelamer Carbonate [Renvela -] 3 tab PO TID 10/11/12 Pregabalin [Lyrica] 75 mg PO DAILY #0 capsule 02/27/13 Metoprolol Succinate [Toprol XL -] 50 mg PO ASDIR 03/09/15 Acetaminophen [Tylenol .Regular Strength -] 650 mg PO Q6H PRN #0 tablet Midodrine HCl 20 mg PO AM 03/20/16 Multivitamin/Iron/Folic Acid [Daily Vitamin Formula-Iron Tab] 1 each PO DAILY Pantoprazole Sodium [Protonix -] 40 mg PO DAILY #30 tablet.ec 03/23/16 Simethicone [Mylicon -] 80 mg PO Q4H PRN #60 tab.chew 03/23/16 Midodrine HCl 10 mg PO HS 07/12/16 Sertraline HCl [Zoloft -] 50 mg PO DAILY 07/12/16 Ipratropium 0.02% Nebulizer [Atrovent 0.02% Nebulizer -] 1 amp NEB TIDR amp 11/28 Sitagliptin Phosphate [Januvia -] 50 mg PO DAILY@0700 tablet 07/19/16
[2016-07-19 14:26] VITALS: BP 122/66; PULSE 91; TEMP 98.2
[2016-07-20] MEDS ORDERED: OSELTAMIVIR PHOSPHATE 30 MG CAPSULE PO SCH (10:00)
== END 2016-07-19 15:02 | DRG 193 ==
LOC: JER 19:31 → JERBED 22:36 → UNDOADMIN 23:45 → J8W 07-12 20:09
PROVIDERS: ADMIT Internal Medicine; ATTEND Internal Medicine
PROC: 3E0F7GC Introduction of Other Therapeutic Substance into Respiratory Tract, Via Natural or Artificial Opening (ICD-10-PCS; 2016-07-11)
PROC: 5A1D60Z (ICD-10-PCS; principal; 2016-07-13)
DX: J10.1 Influenza due to other identified influenza virus with other respiratory manifestations (principal); N18.6 End stage renal disease; I13.2 Hypertensive heart and chronic kidney disease with heart failure and with stage 5 chronic kidney disease, or end stage renal disease; I50.32 Chronic diastolic (congestive) heart failure; Z87.891 Personal history of nicotine dependence; K21.9 Gastro-esophageal reflux disease without esophagitis; E03.9 Hypothyroidism, unspecified; Z95.0 Presence of cardiac pacemaker; Z99.2 Dependence on renal dialysis; R09.02 Hypoxemia; I25.119 Atherosclerotic heart disease of native coronary artery with unspecified angina pectoris; Z95.5 Presence of coronary angioplasty implant and graft; R79.89 Other specified abnormal findings of blood chemistry; M19.90 Unspecified osteoarthritis, unspecified site; N25.0 Renal osteodystrophy; E11.42 Type 2 diabetes mellitus with diabetic polyneuropathy; I35.0 Nonrheumatic aortic (valve) stenosis; R26.9 Unspecified abnormalities of gait and mobility; D69.6 Thrombocytopenia, unspecified; F41.9 Anxiety disorder, unspecified; J98.01 Acute bronchospasm; R41.0 Disorientation, unspecified
CPT/HCPCS: 36415; 70450-TC; 71010-TC; 71020-TC; 80048; 80053; 82550; 83605; 84100; 84484; 85025; 85027; 86704; 86706; 86708; 87040; 87340; 87804; 93005; 93010; 94010; 94640; 97116-GP; 97161-GP; 99284-25; J0885

== ENCOUNTER 2016-07-30 08:17 | Inpatient (IN) | payer OTHER ==
--- NOTE | 2016-07-30 09:20 | PDOC ---
History of Present Illness <Neena Wu - Last Filed: 07/30/16 09:26> - General History Source: Patient - History of Present Illness Initial Comments: 07/30/16 09:52 The patient is a 89 year old female with a significant past medical history of CHF, HTN, HLD, ESRD (on HD MWF), who is sent to the ED by Dr. Munguia for a Dialysis AV shunt problem located on the left arm. Patient states she was unable to have dialysis yesterday due to the AV shunt failure. The patient denies fever, SOB, chest pain, nausea, vomiting, diarrhea. The patient denies dysuria, frequency, hematuria. PCP: Dr. Mondragon. <Salty Toney - Last Filed: 07/30/16 10:38> - General Chief Complaint: Dialysis Shunt Problem Stated Complaint: VASCULAR PROBLEM Time Seen by Provider: 07/30/16 09:15 Past History - Past Medical History Anemia: No Cardiac Disorders: Yes (STENT, DIFIBRILLATOR) CHF: Yes Diabetes: Yes Dialysis: Yes (m,w,f) GI Disorders: Yes (REFLUX) Disorders: Yes (esrd x 5y, low BP @ HD) HTN: Yes Hypercholesterolemia: Yes Suicide Attempt (Hx): No Thyroid Disease: Yes (HYPOTHYROID) - Surgical History Abdominal Surgery: Yes Cardiac Surgery: Yes (pacemaker-stent) - Immunization History Immunization Up to Date: Yes - Psycho/Social/Smoking Cessation Hx Anxiety: No Suicidal Ideation: No Smoking Status: No Smoking History: Never smoked Years of Tobacco Use: 50 Have you smoked in the past 12 months: No Number of Cigarettes Smoked Daily: 0 If you are a former smoker, when did you quit?: 25 years Information on smoking cessation initiated: No Hx Alcohol Use: No Drug/Substance Use Hx: No Substance Use Type: None Hx Substance Use Treatment: No <Neena Wu - Last Filed: 07/30/16 09:26> <Salty Toney - Last Filed: 07/30/16 10:38> - Past Medical History Allergies/Adverse Reactions: Allergies Allergy/AdvReac Type Severity Reaction Status Date / Time codeine [Codeine] Allergy Mild Itching Verified 07/30/16 08:26 oxycodone HCl [From Percocet] Allergy Verified 07/30/16 08:26 Home Medications: Ambulatory Orders Levothyroxine [Synthroid -] 100 mcg PO DAILY 10/11/12 Sevelamer Carbonate [Renvela -] 1,600 tab PO TID 10/11/12 Pregabalin [Lyrica] 75 mg PO DAILY #0 capsule 02/27/13 Metoprolol Succinate [Toprol XL -] 50 mg PO ASDIR 03/09/15 Acetaminophen [Tylenol .Regular Strength -] 650 mg PO Q6H PRN #0 tablet Multivitamin/Iron/Folic Acid [Daily Vitamin Formula-Iron Tab] 1 each PO DAILY Simethicone [Mylicon -] 80 mg PO Q4H PRN #60 tab.chew 03/23/16 Midodrine HCl 10 mg PO HS 07/12/16 Sertraline HCl [Zoloft -] 50 mg PO DAILY 07/12/16 Midodrine HCl [Proamatine -] 20 mg PO MoWeFr #0 tablet 07/19/16 Ipratropium 0.02% Nebulizer [Atrovent 0.02% Nebulizer -] 1 amp NEB QID PRN 07/30 Review of Systems - Review of Systems Able to Perform ROS?: Yes Comments:: 07/30/16 09:52 GENERAL/CONSTITUTIONAL: No fever or chills. No weakness. HEAD, EYES, EARS, NOSE AND THROAT: No change in vision. No ear pain or discharge. No sore throat. CARDIOVASCULAR: No chest pain or shortness of breath. RESPIRATORY: No cough, wheezing, or hemoptysis. GASTROINTESTINAL: No nausea, vomiting, diarrhea or constipation. GENITOURINARY: No dysuria, frequency, or change in urination. MUSCULOSKELETAL/EXTREMETIES: No joint or muscle swelling or pain. No neck or back pain. AV fistula on upper left extremity. SKIN: No rash NEUROLOGIC: No headache, vertigo, loss of consciousness, or change in strength/ sensation. ENDOCRINE: No increased thirst. No abnormal weight change. HEMATOLOGIC/LYMPHATIC: No anemia, easy bleeding, or history of blood clots. ALLERGIC/IMMUNOLOGIC: No hives or skin allergy. <Salty Toney - Last Filed: 07/30/16 10:38> *Physical Exam - Vital Signs Last Vital Signs Temp Pulse Resp BP Pulse Ox 97.7 F 61 18 114/67 97 03/18/17 08:24 07/30/16 08:24 07/30/16 08:24 07/30/16 08:24 07/30/16 08:24 <Neena Wu - Last Filed: 07/30/16 09:26> - Vital Signs Last Vital Signs Temp Pulse Resp BP Pulse Ox 97.7 F 61 18 114/67 97 07/30/16 08:24 07/30/16 08:24 07/30/16 08:24 07/30/16 08:24 07/30/16 08:24 - Physical Exam Comments: 07/30/16 09:56 GENERAL: Awake, alert, and fully oriented, in no acute distress HEAD: No signs of trauma EYES: PERRLA, EOMI, sclera anicteric, conjunctiva clear ENT: Auricles normal inspection, hearing grossly normal, nares patent, oropharynx clear without exudates. Moist mucosa NECK: Normal ROM, supple, no lymphadenopathy, JVD, or masses LUNGS: Breath sounds equal, clear to auscultation bilaterally. No wheezes, and no crackles HEART: Regular rate and rhythm, normal S1 and S2, no murmurs, rubs or gallops ABDOMEN: Soft, nontender, normoactive bowel sounds. No guarding, no rebound. No masses EXTREMITIES: Normal range of motion, no edema. No clubbing or cyanosis. No cords, erythema, or tenderness. Av fistula on the left upper extremity, no bruins, no thrill. NEUROLOGICAL: Cranial nerves II through XII grossly intact. Normal speech, normal gait SKIN: Warm, Dry, normal turgor, no rashes or lesions noted. <Salty Toney - Last Filed: 07/30/16 10:38> ED Treatment Course - LABORATORY CBC & Chemistry Diagram: 07/30/16 09:30 07/30/16 09:30 <Salty Toney - Last Filed: 07/30/16 10:38> Medical Decision Making - Medical Decision Making 07/30/16 09:[address] Cortez (nephrology) at 9:43. Paged Dr. Dariela Milian at 9:44. 07/30/16 10:[address] Dariela [place] and Dr. Cortez. <Salty Toney - Last Filed: 07/30/16 10:38> *DC/Admit/Observation/Transfer - Discharge Dispostion Admit: Yes <Neena Wu - Last Filed: 07/30/16 09:26> - Attestations Scribe Attestion: 07/30/16 09:57 Documentation prepared by Salty Toney, acting as medical record clerk for Neena Wu MD, MD. <Salty Toney - Last Filed: 07/30/16 10:38> Diagnosis at time of Disposition: ESRD on hemodialysis AV fistula thrombosis Qualifiers: Encounter type: initial encounter Qualified Code(s): T82.868A - Thrombosis due to vascular prosthetic devices, implants and grafts, initial encounter - Discharge Dispostion Condition at time of disposition: Stable - Referrals Referrals: Aung Mondragon MD [Primary Care Provider] -
[2016-07-30 10:04] LABS: BASOPHIL 1.3 % (0-2.0); EOSINOPHIL 0.2 % (0-4.5); MCH 30.2 pg (25.7-33.7); MCHC 31.9 g/dl (32.0-36.0); MEAN CELL VOLUME 94.5 fl (80-96); MEAN PLT VOLUME 10.6 fl (7.5-11.1); NEUTROPHILS 80.1 % (42.8-82.8); PLATELET COUNT 89 K/MM3 (134-434); RDW 16.4 % (11.6-15.6); WHITE BLOOD COUNT 6.3 K/mm3 (4.0-10.0)
[2016-07-30 10:23] LABS: INR 1.11 (0.82-1.09); PROTHROMBIN TIME (PATIENT) 12.2 SEC (9.98-11.88)
[2016-07-30 10:34] LABS: ALBUMIN 3.2 g/dl (3.4-5.0); CALCIUM 9.2 mg/dL (8.5-10.1); CREATININE 6.4 mg/dL (0.55-1.02)
[2016-07-30 10:36] LABS: BILIRUBIN,TOTAL 0.9 mg/dL (0.2-1.0); TOT PROT 6.8 g/dl (6.4-8.2)
[2016-07-30] MEDS ORDERED: HEPARIN NA (PORCINE) 5,000 UNITS/ML 1ML VIAL ONE (10:57)
[2016-07-30] MEDS ORDERED: LIDOCAINE HCL 1%, 10 MG/ML (20ML VIAL) ONE (10:57)
--- NOTE | 2016-07-30 11:01 | CONSULT ---
Consult - text type - Consultation Consultation Note: Renal Consult for ESRD on HD This is a 89 year old woman with PMhx of ESRD on HD (MWF), DM Type 2, CAD, Hypothyroidism, Anemia, Renal Osteodystrophy, Recent hospitlization for Influenza presents with clotted AVF. Pt Noted to have AVF w/o thrill or bruit yesterday when she went to dialysis. Last complete dialysis was Monday. Pt advised to come into the ED by Vascular Sx. Denies any sob, chest pain, abd pain , N/V/D. LE swelling is present. UF with HD has been limited by tachycardia as per pt. PMhx: as above Allergies: Codine Family Hx: NC Social Hx: No T/A/D ROS: as per HPI, all other pertinent ros negative Home Meds: Home Medications Medication Instructions Recorded Levothyroxine [Synthroid -] 100 mcg PO DAILY 10/11/12 Sevelamer Carbonate [Renvela -] 1,600 tab PO TID 10/11/12 Pregabalin [Lyrica] 75 mg PO DAILY #0 capsule 02/27/13 Metoprolol Succinate [Toprol XL -] 50 mg PO ASDIR 03/09/15 Acetaminophen [Tylenol .Regular 650 mg PO Q6H PRN #0 tablet 01/18/16 Strength -] Multivitamin/Iron/Folic Acid 1 each PO DAILY 03/20/16 [Daily Vitamin Formula-Iron Tab] Simethicone [Mylicon -] 80 mg PO Q4H PRN #60 tab.chew 03/23/16 Midodrine HCl 10 mg PO HS 07/12/16 Sertraline HCl [Zoloft -] 50 mg PO DAILY 07/12/16 Midodrine HCl [Proamatine -] 20 mg PO MoWeFr #0 tablet 07/19/16 Ipratropium 0.02% Nebulizer 1 amp NEB QID PRN 07/30/16 [Atrovent 0.02% Nebulizer -] Vital Signs Temperature 97.7 F 07/30/16 08:24 Pulse Rate 61 07/30/16 08:24 Respiratory Rate 18 07/30/16 08:24 Blood Pressure 114/67 07/30/16 08:24 O2 Sat by Pulse Oximetry (%) 97 07/30/16 08:24 Intake & Output 07/27/16 07/28/16 07/29/16 07/30/16 23:59 23:59 23:59 23:59 Weight 145 lb Gen: NAD, awake and alert HEENT: NC/AT, MMM, NO JVD, Neck Supple CVS: RRR, + systolic murmur Lungs: CTA Abd: soft NT/ND Ext: 1+ edema, no clubbing or cyanosis Access: Left ARM AVF no thrill or bruit Neuro: NO focal defects CBC, BMP 07/30/16 09:30 07/30/16 09:30 A/P 89 year old woman with PMhx of ESRD on HD (MWF), DM Type 2, CAD, Hypothyroidism , Anemia, Renal Osteodystrophy, Recent hospitlization for Influenza presents with clotted AVF. #Dialysis Access problem/Clotted AVF for Vascular surgery declott/thrombecotmy today in OR pt is NPO for procedure #ESRD on HD Will arrange dialysis today following vascular intervention Tx time 3.5 hours with goal UF of 1.5-2L as tolerated Will use low temp, and PRN albumin with HD #Hyponatremia Related to volume expansion in setting of ESRD Monitor for improvement with UF #Renal Ostedystropohy Continue Phos binders Thank you Pt should be able to be discharged after dialysis today Yahir Cortez DO
[2016-07-30] MEDS ORDERED: ePHEDrine SULFATE 50 MG/1 ML AMPULE ONE (11:04)
[2016-07-30] MEDS ORDERED: PROPOFOL 20 ML ONE (11:07)
[2016-07-30] MEDS ORDERED: SUCCINYLCHOLINE CHLORIDE 200 MG/10 ML VIAL ONE (11:08)
[2016-07-30] MEDS ORDERED: MIDAZOLAM HCL 2 MG/2 ML SINGLE DOSE VIAL ONE ×3 (11:08)
--- NOTE | 2016-07-30 11:31 | CONSULT ---
Consult - History of Present Illness Chief Complaint: Clotted AV fistula History of Present Illness: 89 year old female ESRD on HD with rethrombosis of left arm fistula. She has required multiple angiographic procedures for the left brachial-cephalic fistula. Last HD 3 days ago. - History Source History Provided By: Patient, Medical Record - Past Medical History [employer]INE: Yes: Peripheral Neuropathy Cardio/Vascular: Yes: CAD, CHF, HTN, Hyperlipdemia, Other (S/P PCI/stent, chronic diastolic CHF) Gastrointestinal: Yes: Constipation, Gastritis, GERD, Peptic Ulcer Disease Renal/: Yes: Renal Failure, Hemodialysis Musculoskeletal: Yes: Osteoarthritis Endocrine: Yes: Diabetes Mellitus, Hypothyroidism - Past Surgical History Past Surgical History: Yes: AICD, AV Fistula/Graft, Cholecystectomy, Stent - Alcohol/Substance Use Hx Alcohol Use: No History of Substance Use: reports: None - Smoking History Smoking history: Never smoked Have you smoked in the past 12 months: No Aproximately how many cigarettes per day: 0 If you are a former smoker, when did you quit?: 25 years - Social History ADL: Independent 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 History of Recent Travel: No Home Medications - Allergies Allergies/Adverse Reactions: Allergies Allergy/AdvReac Type Severity Reaction Status Date / Time codeine [Codeine] Allergy Mild Itching Verified 07/30/16 08:26 oxycodone HCl [From Percocet] Allergy Verified 07/30/16 08:26 - Home Medications Home Medications: Ambulatory Orders Levothyroxine [Synthroid -] 100 mcg PO DAILY 10/11/12 Sevelamer Carbonate [Renvela -] 1,600 tab PO TID 10/11/12 Pregabalin [Lyrica] 75 mg PO DAILY #0 capsule 02/27/13 Metoprolol Succinate [Toprol XL -] 50 mg PO ASDIR 03/09/15 Acetaminophen [Tylenol .Regular Strength -] 650 mg PO Q6H PRN #0 tablet Multivitamin/Iron/Folic Acid [Daily Vitamin Formula-Iron Tab] 1 each PO DAILY Simethicone [Mylicon -] 80 mg PO Q4H PRN #60 tab.chew 03/23/16 Midodrine HCl 10 mg PO HS 07/12/16 Sertraline HCl [Zoloft -] 50 mg PO DAILY 07/12/16 Midodrine HCl [Proamatine -] 20 mg PO MoWeFr #0 tablet 07/19/16 Ipratropium 0.02% Nebulizer [Atrovent 0.02% Nebulizer -] 1 amp NEB QID PRN 07/30 Physical Exam Vital Signs: Vital Signs Temperature 97.7 F 07/30/16 08:24 Pulse Rate 59 L 07/30/16 11:05 Respiratory Rate 19 07/30/16 11:05 Blood Pressure 116/89 07/30/16 11:05 O2 Sat by Pulse Oximetry (%) 99 07/30/16 11:05 Extremities: Yes: Other (Left upper arm fistula with no bruit or thrill. vein chronically aneurysmal. Hand warm, palpable pulses.) Labs: CBC, BMP 07/30/16 09:30 07/30/16 09:30 Problem List - Problems (1) ESRD on hemodialysis Assessment/Plan: Failed cephalic vein fistula. This access cannot be salvaged with any reasonable expectation of long-term success. I will place a Permacath today and plan AV graft in left arm after dialysis. Code(s): N18.6 - END STAGE RENAL DISEASE Z99.2 - DEPENDENCE ON RENAL DIALYSIS
[2016-07-30 11:38] VITALS: BMI 26.4
[2016-07-30] MEDS ORDERED: SODIUM CHLORIDE 0.9% P/F 10 ML VIAL IJ ONE (11:44)
[2016-07-30] MEDS ORDERED: ceFAZolin SODIUM 1 GM VIAL ONE (11:44)
[2016-07-30] MEDS ORDERED: LIDOCAINE HCL 1%, 10 MG/ML (20ML VIAL) IJ ONE ×2 (11:47)
--- NOTE | 2016-07-30 12:15 | HP ---
Admitting History and Physical - Primary Care Physician PCP: Aung Mondragon - Admission Chief Complaint: clotted AV graft History of Present Illness: ER HISTORY - History of Present Illness Initial Comments: 07/30/16 09:52 The patient is a 89 year old female with a significant past medical history of CHF, HTN, HLD, ESRD (on HD MWF), who is sent to the ED by Dr. Munguia for a Dialysis AV shunt problem located on the left arm. Patient states she was unable to have dialysis yesterday due to the AV shunt failure. The patient denies fever, SOB, chest pain, nausea, vomiting, diarrhea. The patient denies dysuria, frequency, hematuria. PCP: Dr. Mondragon. Pt seen by me in Recovery room Awake and no distress S/p permacath placement right chest wall. Unable to do revision of left AV graft -- rescheduled for Monday . 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: Yes: Peripheral Neuropathy Cardiovascular: Yes: CAD, CHF, HTN, Hyperlipdemia, Other (S/P PCI/stent, chronic diastolic CHF) Gastrointestinal: Yes: Constipation, Gastritis, GERD, Peptic Ulcer Disease Renal/: Yes: Renal Failure, Hemodialysis ...: No Heme/Onc: Yes: Anemia Musculoskeletal: Yes: Osteoarthritis Endocrine: Yes: Diabetes Mellitus, Hypothyroidism - Past Surgical History Past Surgical History: Yes: AICD, AV Fistula/Graft, Cholecystectomy, Stent - Smoking History Smoking history: Never smoked Have you smoked in the past 12 months: No Aproximately how many cigarettes per day: 0 If you are a former smoker, when did you quit?: 25 years - Alcohol/Substance Use Hx Alcohol Use: No History of Substance Use: reports: None - Social History ADL: Independent 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 History of Recent Travel: No Home Medications - Allergies Allergies/Adverse Reactions: Allergies Allergy/AdvReac Type Severity Reaction Status Date / Time codeine [Codeine] Allergy Mild Itching Verified 07/30/16 08:26 oxycodone HCl [From Percocet] Allergy Verified 07/30/16 08:26 - Home Medications Home Medications: Ambulatory Orders Levothyroxine [Synthroid -] 100 mcg PO DAILY 10/11/12 Sevelamer Carbonate [Renvela -] 1,600 tab PO TID 10/11/12 Pregabalin [Lyrica] 75 mg PO DAILY #0 capsule 02/27/13 Metoprolol Succinate [Toprol XL -] 50 mg PO ASDIR 03/09/15 Acetaminophen [Tylenol .Regular Strength -] 650 mg PO Q6H PRN #0 tablet Multivitamin/Iron/Folic Acid [Daily Vitamin Formula-Iron Tab] 1 each PO DAILY Simethicone [Mylicon -] 80 mg PO Q4H PRN #60 tab.chew 03/23/16 Midodrine HCl 10 mg PO HS 07/12/16 Sertraline HCl [Zoloft -] 50 mg PO DAILY 07/12/16 Midodrine HCl [Proamatine -] 20 mg PO MoWeFr #0 tablet 07/19/16 Ipratropium 0.02% Nebulizer [Atrovent 0.02% Nebulizer -] 1 amp NEB QID PRN 07/30 Review of Systems - Review of Systems Constitutional: denies: Chills, Fever Cardiovascular: denies: Chest Pain Respiratory: denies: SOB Physical Examination Vital Signs: Vital Signs Temperature 97.7 F 07/30/16 11:16 Pulse Rate 59 L 07/30/16 11:16 Respiratory Rate 19 07/30/16 11:16 Blood Pressure 116/89 07/30/16 11:16 O2 Sat by Pulse Oximetry (%) 99 07/30/16 11:16 Constitutional: Yes: No Distress, Calm Cardiovascular: Yes: Regular Rate and Rhythm Respiratory: Yes: Diminished, Other (right chest wall permaCATH) Gastrointestinal: Yes: Normal Bowel Sounds, Soft. No: Distention, Tenderness Edema: Yes Edema: LLE: 2+, RLE: 2+ Psychiatric: Yes: Alert, Oriented Labs: CBC, BMP 07/30/16 09:30 07/30/16 09:30 Imaging - Results Chest X-ray: Image Reviewed EKG: Image Reviewed (sinus bradycardia, motion artifacts.?flutter waves) Problem List - Problems (1) AV fistula thrombosis Code(s): T82.868A - THROMBOSIS DUE TO VASCULAR PROSTH DEV/GRFT, INIT Qualifiers: Encounter type: initial encounter Qualified Code(s): T82.868A - Thrombosis due to vascular prosthetic devices, implants and grafts, initial encounter (2) ESRD on hemodialysis Code(s): N18.6 - END STAGE RENAL DISEASE Z99.2 - DEPENDENCE ON RENAL DIALYSIS (3) CAD (coronary artery disease) Code(s): I25.10 - ATHSCL HEART DISEASE OF [place] CORONARY ARTERY W/O ANG PCTRS Qualifiers: Coronary Disease-Associated Artery/Lesion type: [place] artery [place] vs. transplanted heart: [place] heart Associated angina: without angina Qualified Code(s): I25.10 - Atherosclerotic heart disease of [place] coronary artery without angina pectoris Assessment/Plan PLAN Dialysis per renal Not SOB Dialysis scheduled for today will need surgery for AV graft- scheduled for Monday Continue with meds DVT prophylaxis-- heparin sc repeat EKG -- ? flutter waves vs motion artifact tele in Recovery room sinus bradycardia
[2016-07-30] MEDS ORDERED: ACETAMINOPHEN 325 MG TABLET (FP) PO PRN ×2 (12:19→13:08)
[2016-07-30] MEDS ORDERED: IPRATROPIUM BR 0.02% 0.5 MG/2.5 ML VIAL.NEB. NEB PRN ×3 (12:19→14:18)
[2016-07-30] MEDS ORDERED: SIMETHICONE 80 MG TAB.CHEW (FP) PO PRN ×2 (12:19→13:08)
--- NOTE | 2016-07-30 12:19 | OP ---
Operative Note - Note: Operative Date: 07/30/16 Pre-Operative Diagnosis: Clotted AV fistula. ESRD Operation: Placement Permacath, Venogram SVC Findings: Patent right subclavian vein and SVC. No internal jugular on right Surgeon: Dino Munguia Anesthesiologist/DEPUTY PROGRAM MANAGER: Bin Kennedy Anesthesia: Fractional
[2016-07-30] MEDS ORDERED: ONDANSETRON 4 MG/2 ML VIAL IVPUSH PRN ×2 (12:22→14:18)
[2016-07-30] MEDS ORDERED: METOPROLOL SUCCINATE 50 MG TAB.SR.24H (FP) PO SCH ×2 (12:30→13:08)
[2016-07-30] MEDS ORDERED: DEXTROSE 5%-0.45% SALINE 1,000 ML IV SCH ×2 (12:30→13:08)
--- NOTE | 2016-07-30 13:12 | OP ---
DATE OF OPERATION: 07/30/2016 SURGEON: Suman Purvis MD OPERATION: Placement of permacath, right subclavian vein, with venography of the subclavian vein and superior vena cava. PREOPERATIVE DIAGNOSIS: End-stage renal disease on hemodialysis with clotted arteriorvenous fistula. POSTOPERATIVE DIAGNOSIS: End-stage renal disease on hemodialysis with clotted arteriorvenous fistula. ANESTHESIA: Fractional. ANESTHESIOLOGIST: Bin Kennedy MD FINDINGS: The right subclavian vein was patent with runoff into the superior vena cava. There was slight tortuosity of the vessel and angulation at the junction of the superior vena cava and the innominate vein. OPERATIVE PROCEDURE: Following routine patient identification with side and site verification, the right neck and chest were examined with duplex imaging. The right internal jugular vein was not identified. Several small venous tributaries in the neck were seen and not felt to be appropriate for permacath placement. The right subclavian vein was visualized lateral to the pacemaker and appeared to be patent. The neck and chest were prepped with ChloraPrep. Xylocaine 1% was infiltrated, lateral aspect of the subclavian vein, which was cannulated with a micropuncture needle using ultrasound guidance. A fine wire was passed proximally into the superior vena cava, and a 5-[place] catheter advanced over the wire. Venography was performed through the catheter with the above noted findings using dilute contrast. A wire was then advanced through the catheter into the superior vena cava, and directed distally into the inferior vena cava through the right atrium. Tract around the wire was dilated. The introducer sheath was placed over the wire, but could not be advanced proximal to the junction of the subclavian vein and jugular vein due to severe angulation. Xylocaine was then infiltrated on the chest wall inferior to the access site of the vein, and a small stab wound was made. A 27-cm permacath was passed in the subcutaneous plane with the tunneler, attached it next to the introducer. The wire was threaded through the catheter and then through the introducer and into the right atrium. The catheter was then advanced over the wire into the right atrium, and the introducer was peeled away leaving the catheter in place. The wire was removed. Each lumen of the catheter was aspirated freely and flushed with saline, and then filled with heparin solution. The chest wound was closed with a 3-0 Vicryl suture, and the catheter was sutured to the skin at the exit site with 3-0 Nylon. Sterile dressings were applied, and the patient was taken to the recovery room in stable condition. SUMAN PURVIS M.D. [id number]
[2016-07-30] MEDS ORDERED: SEVELAMER CARBONATE 800 MG TAB (FP) PO SCH ×2 (14:00)
[2016-07-30 15:36] LABS: THYROID STIMULATING HORMONE 4.27 uIU/ml (0.358-3.74); TROPONIN I 0.07 ng/ml (0.00-0.05)
[2016-07-30] MEDS: METOPROLOL SUCCINATE 25 MG TAB.SR.24H (FP) PO SCH (15:45)
[2016-07-30] MEDS: ALBUMIN HUMAN 25% 100 ML VIAL IVPB SCH ×2 (16:45→17:48)
[2016-07-30] MEDS: SEVELAMER CARBONATE 800 MG TAB (FP) PO SCH (18:48)
[2016-07-30] MEDS: ACETAMINOPHEN 325 MG TABLET (FP) PO PRN (20:09)
[2016-07-30 20:43] LABS: TROPONIN I 0.07 ng/ml (0.00-0.05)
[2016-07-30] MEDS ORDERED: PATIENT'S OWN MEDICATION (NON-FORMULARY) (Midodrine Hcl [Midodrine Hcl] 10 MG) PO SCH (22:00)
[2016-07-30] MEDS ORDERED: MIDODRINE HCL 5 MG TABLET PO SCH ×2 (22:00)
[2016-07-31] MEDS ORDERED: LEVOTHYROXINE NA 100 MCG TABLET (FP) PO SCH ×2 (07:00)
[2016-07-31] MEDS: LEVOTHYROXINE NA 100 MCG TABLET (FP) PO SCH (07:01)
--- NOTE | 2016-07-31 08:19 | PN ---
Progress Note (short form) - Note Progress Note: anesthesia post op s/p permacath Vital Signs Temperature 98.8 F 07/31/16 06:00 Pulse Rate 86 07/31/16 06:00 Respiratory Rate 18 07/31/16 06:00 Blood Pressure 115/67 07/31/16 06:00 O2 Sat by Pulse Oximetry (%) 100 07/30/16 21:00 cath placement pt seen and examined Alert and awake VSS doing well post op Denis Borrero MD
[2016-07-31] MEDS: SEVELAMER CARBONATE 800 MG TAB (FP) PO SCH ×3 (08:59→17:01)
--- NOTE | 2016-07-31 08:59 | PN ---
Progress Note, Physician Chief Complaint: no distress No oozing from permacath site had HD yesterday - Current Medication List Current Medications: Active Medications Acetaminophen (Tylenol -) 650 mg PO Q6H PRN PRN Reason: FEVER OR PAIN Last Admin: 07/30/16 20:09 Dose: 650 mg Ipratropium [place] (Atrovent 0.02% Nebulizer -) 1 amp NEB QID PRN PRN Reason: SHORTNESS OF BREATH Levothyroxine Sodium (Synthroid -) 100 mcg PO DAILY@0700 [facility] Last Admin: 07/31/16 07:01 Dose: 100 mcg Metoprolol Succinate (Toprol Xl -) 25 mg PO SuTuThSa@1000 [facility] Last Admin: 07/30/16 15:45 Dose: Not Given Midodrine (Proamatine -) 20 mg PO MoWeFr [facility] Multivitamins/Minerals/Vitamin C (Tab-A-Vit -) 1 tab PO DAILY [facility] Pregabalin (Lyrica -) 75 mg PO DAILY [facility] Sertraline HCl (Zoloft -) 50 mg PO DAILY [facility] Sevelamer Carbonate (Renvela -) 1,600 mg PO TIDCM [facility] Last Admin: 07/30/16 18:48 Dose: Not Given Simethicone (Mylicon -) 80 mg PO Q4H PRN PRN Reason: GAS - Objective Vital Signs: Vital Signs Temperature 98.8 F 07/31/16 06:00 Pulse Rate 86 07/31/16 06:00 Respiratory Rate 18 07/31/16 06:00 Blood Pressure 115/67 07/31/16 06:00 O2 Sat by Pulse Oximetry (%) 100 07/30/16 21:00 Constitutional: Yes: No Distress Cardiovascular: Yes: Regular Rate and Rhythm, Other (rt permacath) Respiratory: Yes: Diminished Gastrointestinal: Yes: Normal Bowel Sounds, Soft. No: Distention, Tenderness Edema: Yes Edema: LLE: 1+, RLE: 1+ Labs: CBC, BMP 07/30/16 09:30 07/30/16 09:30 INR, PTT INR 1.11 (0.82-1.09) 07/30/16 09:30 Problem List - Problems (1) AV fistula thrombosis Code(s): T82.868A - THROMBOSIS DUE TO VASCULAR PROSTH DEV/GRFT, INIT Qualifiers: Encounter type: initial encounter Qualified Code(s): T82.868A - Thrombosis due to vascular prosthetic devices, implants and grafts, initial encounter (2) ESRD on hemodialysis Code(s): N18.6 - END STAGE RENAL DISEASE Z99.2 - DEPENDENCE ON RENAL DIALYSIS (3) CAD (coronary artery disease) Code(s): I25.10 - ATHSCL HEART DISEASE OF [place] CORONARY ARTERY W/O ANG PCTRS Qualifiers: Coronary Disease-Associated Artery/Lesion type: [place] artery [place] vs. transplanted heart: [place] heart Associated angina: without angina Qualified Code(s): I25.10 - Atherosclerotic heart disease of [place] coronary artery without angina pectoris (4) Atrial flutter Assessment/Plan: rate is controlled Code(s): I48.92 - UNSPECIFIED ATRIAL FLUTTER Qualifiers: Atrial flutter type: typical Qualified Code(s): I48.3 - Typical atrial flutter Assessment/Plan PLAN spoke with cardiology yesterday Will start Heparin infusion today for new onset Aflutter Check Aptt and CBC spoke with family and pt about starting the infusion and subsequently Coumadin after surgery for AV graft family in agreement continue with meds Tele monitoring
[2016-07-31] MEDS: MULTIVITAMINS (DAILY MVI) TABLET (FP) PO SCH (09:21)
[2016-07-31] MEDS: SERTRALINE HCL 50 MG TABLET (FP) PO SCH (09:21)
[2016-07-31] MEDS: METOPROLOL SUCCINATE 25 MG TAB.SR.24H (FP) PO SCH (09:21)
[2016-07-31] MEDS: PREGABALIN 75 MG CAPSULE PO SCH (09:21)
[2016-07-31] MEDS ORDERED: HEPARIN NA (PORCINE) 5,000 UNITS/ML 1ML VIAL IVPUSH PRN ×2 (09:24)
[2016-07-31] MEDS: SIMETHICONE 80 MG TAB.CHEW (FP) PO PRN ×2 (09:24→22:32)
[2016-07-31] MEDS ORDERED: MULTIVITAMIN PO SCH ×2 (10:00)
[2016-07-31] MEDS ORDERED: FOLIC ACID PO SCH ×2 (10:00)
[2016-07-31] MEDS ORDERED: PREGABALIN 75 MG CAPSULE PO SCH ×2 (10:00)
[2016-07-31] MEDS ORDERED: IRON PO SCH ×2 (10:00)
[2016-07-31] MEDS ORDERED: SERTRALINE HCL 50 MG TABLET (FP) PO SCH ×2 (10:00)
[2016-07-31] MEDS ORDERED: [UNRECOGNIZED DRUG - OTHER] PO SCH ×2 (10:00)
[2016-07-31] MEDS: ACETAMINOPHEN 325 MG TABLET (FP) PO PRN (10:03)
[2016-07-31] MEDS ORDERED: HYDROmorphone HCL CARPU-JECT 1 MG/1 ML DISP.SYRIN IVPB PRN (10:18)
--- NOTE | 2016-07-31 10:18 | PN ---
Progress Note (short form) - Note Progress Note: POD #1 Alert. Sitting in chair. C/o of RUE pain in her armpit. She had HD yesterday via PC without incident. Denies n/v/f/c, CP or SOB. Last Vital Signs Temp Pulse Resp BP Pulse Ox 98.8 F 86 18 115/67 100 07/31/16 06:00 07/31/16 06:00 07/31/16 06:00 07/31/16 06:00 07/30/16 21:00 CBC, BMP 07/30/16 09:30 07/30/16 09:30 PE General: nad Right chest wall: PC dressing c/d/i. No hematoma in armpit. No swelling to RUE. Radial puls 2+. Cap refill < 3 sec Problem List - Problems (1) AV fistula thrombosis Assessment/Plan: POD #1 s/p Permacath insertion. Pain management via Dilaudid 1mg IVPB Q 4H Cont care per Medicine Code(s): T82.868A - THROMBOSIS DUE TO VASCULAR PROSTH DEV/GRFT, INIT Qualifiers: Encounter type: initial encounter Qualified Code(s): T82.868A - Thrombosis due to vascular prosthetic devices, implants and grafts, initial encounter (2) ESRD on hemodialysis Code(s): N18.6 - END STAGE RENAL DISEASE Z99.2 - DEPENDENCE ON RENAL DIALYSIS
--- NOTE | 2016-07-31 10:25 | SPA.PREOP ---
- PRE-OP NOTE Dx: ESRD on HD. Thrombosed LUE AVF Planned Procedure: HeRO GRAFT LUE Surgeon: Dino Munguia Consent: To be obtained by surgeon after all risks, benefits and alternatives explained to patient. Last Vital Signs Temp Pulse Resp BP Pulse Ox 98.8 F 86 18 115/67 100 07/31/16 06:00 07/31/16 06:00 07/31/16 06:00 07/31/16 06:00 07/30/16 21:00 CBC, BMP 07/30/16 09:30 07/30/16 09:30 INR, PTT INR 1.11 (0.82-1.09) 07/30/16 09:30 Blood Type Blood Type O NEGATIVE 07/30/16 09:30 Problem List - Problems (1) AV fistula thrombosis Assessment/Plan: 1. Make NPO after midnight except po meds 2. GI/DVT PPX 3. Medical optimization / clearance 4. Awaiting cardiac consult for clearance (Dr. Guevara) Code(s): T82.868A - THROMBOSIS DUE TO VASCULAR PROSTH DEV/GRFT, INIT Qualifiers: Encounter type: initial encounter Qualified Code(s): T82.868A - Thrombosis due to vascular prosthetic devices, implants and grafts, initial encounter (2) ESRD on hemodialysis Code(s): N18.6 - END STAGE RENAL DISEASE Z99.2 - DEPENDENCE ON RENAL DIALYSIS Visit type - Case Type Case Type: ED Admission
--- NOTE | 2016-07-31 10:43 | CON.CARD ---
Consult Consult Specialty:: Cardiology Referred by:: Dariela Milian MD Reason for Consultation:: Newly diagnosed aflutter - History of Present Illness Chief Complaint: Aflutter History of Present Illness: Patient is an 89 year old female with underlying history of CAD s/p PCI (BMS to LCX), LV systolic dysfunction with history of LV failure, post ICD, HTN/HCVD, type 2 DM with neuropathy, hypercholesterolemia, hypothyroidism, ESRD on HD (M,W ,F) and history of gait disturbances, recent Influenza A post Tamiflu course presented with clotted LUE AV fistula for which she underwent permacath placement and venogram SVC, planned for HeRO GRAFT LUE, found to be in atypical aflutter with 4:1 AV conduction. Reports dyspnea overnight, currently asymptomatic without chest pain, dyspnea, palpitations, near or true syncope, orthopnea, PND or LE edema. - History Source History Provided By: Patient Limitations to Obtaining History: No Limitations - Past Medical History SAUSAGE CUTTER: Yes: Peripheral Neuropathy Cardio/Vascular: Yes: CAD, CHF, HTN, Hyperlipdemia, Other (S/P PCI/stent, chronic diastolic CHF) Gastrointestinal: Yes: Constipation, Gastritis, GERD, Peptic Ulcer Disease Renal/: Yes: Renal Failure, Hemodialysis ...: No Musculoskeletal: Yes: Osteoarthritis Endocrine: Yes: Diabetes Mellitus, Hypothyroidism - Past Surgical History Past Surgical History: Yes: AICD, AV Fistula/Graft, Cholecystectomy, Stent - Alcohol/Substance Use Hx Alcohol Use: No History of Substance Use: reports: None - Smoking History Smoking history: Never smoked Have you smoked in the past 12 months: No Aproximately how many cigarettes per day: 0 If you are a former smoker, when did you quit?: 25 years - Social History ADL: Independent 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 History of Recent Travel: No Home Medications - Allergies Allergies/Adverse Reactions: Allergies Allergy/AdvReac Type Severity Reaction Status Date / Time codeine [Codeine] Allergy Mild Itching Verified 07/30/16 08:26 oxycodone HCl [From Percocet] Allergy Verified 07/30/16 08:26 - Home Medications Home Medications: Ambulatory Orders Levothyroxine [Synthroid -] 100 mcg PO DAILY 10/11/12 Sevelamer Carbonate [Renvela -] 1,600 tab PO TID 10/11/12 Pregabalin [Lyrica] 75 mg PO DAILY #0 capsule 02/27/13 Metoprolol Succinate [Toprol XL -] 50 mg PO ASDIR 03/09/15 Acetaminophen [Tylenol .Regular Strength -] 650 mg PO Q6H PRN #0 tablet Multivitamin/Iron/Folic Acid [Daily Vitamin Formula-Iron Tab] 1 each PO DAILY Simethicone [Mylicon -] 80 mg PO Q4H PRN #60 tab.chew 03/23/16 Midodrine HCl 10 mg PO HS 07/12/16 Sertraline HCl [Zoloft -] 50 mg PO DAILY 07/12/16 Midodrine HCl [Proamatine -] 20 mg PO MoWeFr #0 tablet 07/19/16 Ipratropium 0.02% Nebulizer [Atrovent 0.02% Nebulizer -] 1 amp NEB QID PRN 07/30 Review of Systems - Review of Systems Respiratory: reports: SOB Vital Signs: Vital Signs Temperature 98.8 F 07/31/16 06:00 Pulse Rate 86 07/31/16 06:00 Respiratory Rate 18 07/31/16 06:00 Blood Pressure 115/67 07/31/16 06:00 O2 Sat by Pulse Oximetry (%) 100 07/30/16 21:00 Constitutional: Yes: No Distress, Calm Neck: Yes: Supple Respiratory: Yes: Regular, Diminished Gastrointestinal: Yes: Normal Bowel Sounds, Soft Cardiovascular: Yes: Regular Rate and Rhythm JVD: No Carotid Bruit: No Heart Sounds: Yes: S1, S2 Murmur: Yes: Systolic Murmur, Grade 1 Edema: No - Other Data Labs, Other Data: CBC, BMP 07/30/16 09:30 07/30/16 09:30 INR, PTT INR 1.11 (0.82-1.09) 07/30/16 09:30 Troponin, BNP 07/30/16 07/30/16 14:41 20:00 Troponin I 0.07 H 0.07 H Troponin, BNP 07/30/16 07/30/16 14:41 20:00 Troponin I 0.07 H 0.07 H Atypical aflutter @ 60 Imaging - Results Chest X-ray: Report Reviewed (NAD, no PTX) Problem List - Problems (1) AV fistula thrombosis Code(s): T82.868A - THROMBOSIS DUE TO VASCULAR PROSTH DEV/GRFT, INIT Qualifiers: Encounter type: initial encounter Qualified Code(s): T82.868A - Thrombosis due to vascular prosthetic devices, implants and grafts, initial encounter (2) Atrial flutter Code(s): I48.92 - UNSPECIFIED ATRIAL FLUTTER Qualifiers: Atrial flutter type: typical Qualified Code(s): I48.3 - Typical atrial flutter (3) ESRD on hemodialysis Code(s): N18.6 - END STAGE RENAL DISEASE Z99.2 - DEPENDENCE ON RENAL DIALYSIS (4) Anemia Code(s): D64.9 - ANEMIA, UNSPECIFIED Qualifiers: Anemia type: unspecified type Qualified Code(s): D64.9 - Anemia, unspecified (5) Aortic stenosis Code(s): I35.0 - NONRHEUMATIC AORTIC (VALVE) STENOSIS Qualifiers: Cardiac valve disease etiology: nonrheumatic Qualified Code(s): I35.0 - Nonrheumatic aortic (valve) stenosis (6) CAD (coronary artery disease) Code(s): I25.10 - ATHSCL HEART DISEASE OF [place] CORONARY ARTERY W/O ANG PCTRS Qualifiers: Coronary Disease-Associated Artery/Lesion type: [place] artery [place] vs. transplanted heart: [place] heart Associated angina: without angina Qualified Code(s): I25.10 - Atherosclerotic heart disease of [place] coronary artery without angina pectoris (7) Coronary arteriosclerosis in [place] artery Code(s): I25.10 - ATHSCL HEART DISEASE OF [place] CORONARY ARTERY W/O ANG PCTRS (8) Diabetes Code(s): E11.9 - TYPE 2 DIABETES MELLITUS WITHOUT COMPLICATIONS Qualifiers: Diabetes mellitus type: type 2 Diabetes mellitus complication status: without complication Diabetes mellitus long term care pharmacist insulin use: without care home use Qualified Code(s): E11.9 - Type 2 diabetes mellitus without complications (9) ESRD on dialysis Code(s): N18.6 - END STAGE RENAL DISEASE Z99.2 - DEPENDENCE ON RENAL DIALYSIS (10) History of percutaneous coronary intervention Code(s): Z98.89 - OTHER SPECIFIED POSTPROCEDURAL STATES * DO NOT USE * (11) Hyperlipidemia Code(s): E78.5 - HYPERLIPIDEMIA, UNSPECIFIED Qualifiers: Hyperlipidemia type: pure hypercholesterolemia Qualified Code(s): E78.00 - Pure hypercholesterolemia, unspecified; E78.0 - Pure hypercholesterolemia (12) Hypothyroidism Code(s): E03.9 - HYPOTHYROIDISM, UNSPECIFIED Qualifiers: Hypothyroidism type: unspecified Qualified Code(s): E03.9 - Hypothyroidism, unspecified (13) Labile essential hypertension Code(s): I10 - ESSENTIAL (PRIMARY) HYPERTENSION (14) Single implantable cardioverter-defibrillator (ICD) in situ Code(s): Z95.810 - PRESENCE OF AUTOMATIC (IMPLANTABLE) CARDIAC DEFIBRILLATOR (15) Subendocardial ischemia Code(s): I24.8 - OTHER FORMS OF ACUTE ISCHEMIC HEART DISEASE (16) Systolic dysfunction without heart failure Code(s): I51.9 - HEART DISEASE, UNSPECIFIED (17) Troponin level elevated Code(s): R79.89 - OTHER SPECIFIED ABNORMAL FINDINGS OF BLOOD CHEMISTRY Assessment/Plan 01/14/2016 Mildly dilated and severely decreased LV fxn, severe TR, mild , [place], [place] 1. Newly diagnosed atypical atrial flutter on heparin gtt 2. LV systolic dysfunction with history of failure, currently compensated S/P ICD 3. Elevated troponin - subendocardial ischemia 4. CAD, s/p PCI/stent, angina 5. ESRD on HD with thrombosed LUE AVF post PC placement and planned for LUE HeRo graft 6. Type 2 DM 7. Hypercholesterolemia 8. Aortic stenosis (mild) and mild aortic regurgitation 9. Anemia, thrombcytopenia 10. Hypothyroidism 11. Influenza A post Tamiflu course 12. Hyponatremia PLAN: 1. Heparin gtt pre-op, start coumadin per INR once post-op hemostasis achieved, d/c ASA 2. Continue Metoprolol ER 50 mg qd and Midodrine 20/10 qd as tolerated 3. ICD interrogation as outpatient in the office 4. HD via PC per renal 5. Patient may proceed with LUE HeRO graft placement as aflutter is rate- controlled. Thank you for consultative opportunity
[2016-07-31 11:01] LABS: MCH 30.1 pg (25.7-33.7); MEAN CELL VOLUME 93.9 fl (80-96); MEAN PLT VOLUME 9.3 fl (7.5-11.1); PLATELET COUNT 87 K/MM3 (134-434); RDW 16.7 % (11.6-15.6)
--- NOTE | 2016-07-31 11:31 | EKG ---
Test Reason : Blood Pressure : / mmHG Vent. Rate : 056 BPM Atrial Rate : 241 BPM P-R Int : 000 ms QRS Dur : 092 ms QT Int : 446 ms P-R-T Axes : 175 -13 181 degrees QTc Int : 430 ms ATRIAL FLUTTER WITH VARIABLE A-V BLOCK ANTEROSEPTAL INFARCT (CITED ON OR BEFORE 07-MAR-2015) ABNORMAL ECG WHEN COMPARED WITH ECG OF 11-JUL-2016 21:25, ATRIAL FLUTTER HAS REPLACED SINUS RHYTHM VENT. RATE HAS DECREASED BY 34 BPM QT HAS SHORTENED Confirmed by DEANN FUENTES MD ([id number]) on 07/31/2016 11:31:00 AM Referred By: Confirmed By:DEANN FUENTES MD
--- NOTE | 2016-07-31 11:32 | EKG ---
Test Reason : Blood Pressure : / mmHG Vent. 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
[2016-07-31] MEDS: HEPARIN - 25,000 UNIT in SODIUM CHLORIDE 495 ML IV SCH ×2 (12:01→19:40)
[2016-08-01] MEDS: HEPARIN - 25,000 UNIT in SODIUM CHLORIDE 495 ML IV SCH ×2 (02:51→22:49)
[2016-08-01] MEDS: LEVOTHYROXINE NA 100 MCG TABLET (FP) PO SCH (06:00)
--- NOTE | 2016-08-01 08:08 | PN ---
Progress Note (short form) - Note Progress Note: Subjective Patient seen and examined. Chart reviewed. Comfortable. no complaints offered. Daughter at bedside. Objective Last Vital Signs Temp Pulse Resp BP Pulse Ox 98.1 F 81 18 124/65 95 08/01/16 06:00 08/01/16 06:00 08/01/16 06:00 08/01/16 06:00 07/31/16 21:00 CBC, BMP 07/31/16 10:51 07/30/16 09:30 Laboratory Results - last 24 hr 07/31/16 07/31/16 07/31/16 10:51 10:51 18:20 WBC 7.0 RBC 3.36 L Hgb 10.1 L D Hct 31.6 L MCV 93.9 MCHC 32.0 RDW 16.7 H Plt Count 87 L MPV 9.3 D PTT (Actin FS) 29.7 44.1 H D 08/01/16 01:35 WBC RBC Hgb Hct MCV MCHC RDW Plt Count MPV PTT (Actin FS) 62.8 H D Physical Exam Constitutional: Yes: No Distress/ Sitting in the chair. Cardiovascular: Yes: Irregular Rate and Rhythm, Other (rt permacath) Respiratory: Yes: Diminished Gastrointestinal: Yes: Normal Bowel Sounds, Soft. No: Distention, Tenderness Edema: Yes Edema: LLE: 1+, RLE: 1+ Assessment and Plan Stable. Continue heparin. Scheduled for AV fistula repair later today. Will hold heparin as of 12 pm today as per surgical team instructions. Will consider starting on coumadin after the procedure. Heart rate under control. Patient is medically stable for the proposed procedure. Discussed with nursing staff as well as patients daughter. Will follow. Documentation prepared by Lizette Herzog, acting as a medical research tech for Norma Oropeza MD.
[2016-08-01] MEDS: SEVELAMER CARBONATE 800 MG TAB (FP) PO SCH ×3 (09:36→17:40)
[2016-08-01] MEDS ORDERED: MIDODRINE HCL 5 MG TABLET PO SCH ×3 (10:00→15:00)
--- NOTE | 2016-08-01 10:49 | PN ---
Progress Note, Physician Chief Complaint: Events noted Not in distress History of Present Illness: Patient was seen and examined. Awake and alert. Chart was reviewed Atrial flutter rate controlled on Heparin drip - Current Medication List Current Medications: Active Medications Acetaminophen (Tylenol -) 650 mg PO Q6H PRN PRN Reason: FEVER OR PAIN Last Admin: 07/31/16 10:03 Dose: 650 mg Heparin Sodium (Porcine) (Heparin -) 1,000 unit IVPUSH PRN PRN PRN Reason: Heparin Last Admin: 07/31/16 19:39 Dose: 1,000 unit Heparin Sodium (Porcine) (Heparin -) 5,000 unit IVPUSH PRN PRN PRN Reason: Heparin Hydromorphone HCl (Dilaudid Injection -) 1 mg IVPB Q4H PRN PRN Reason: PAIN Last Admin: 07/31/16 10:35 Dose: 1 mg Heparin Sodium (Porcine) 25, (000 unit/ Sodium Chloride) 500 mls @ 16 mls/hr IV TITR LINDA; 800 UNIT/HR PRN Reason: Protocol Last Admin: 08/01/16 02:51 Dose: 18 mls/hr Ipratropium [place] (Atrovent 0.02% Nebulizer -) 1 amp NEB QID PRN PRN Reason: SHORTNESS OF BREATH Levothyroxine Sodium (Synthroid -) 100 mcg PO DAILY@0700 [facility] Last Admin: 08/01/16 06:00 Dose: 100 mcg Metoprolol Succinate (Toprol Xl -) 25 mg PO SuTuThSa@1000 [facility] Last Admin: 07/31/16 09:21 Dose: 25 mg Midodrine (Proamatine -) 20 mg PO MoWeFr [facility] Multivitamins/Minerals/Vitamin C (Tab-A-Vit -) 1 tab PO DAILY [facility] Last Admin: 07/31/16 09:21 Dose: 1 tab Pregabalin (Lyrica -) 75 mg PO DAILY [facility] Last Admin: 07/31/16 09:21 Dose: 75 mg Sertraline HCl (Zoloft -) 50 mg PO DAILY [facility] Last Admin: 07/31/16 09:21 Dose: 50 mg Sevelamer Carbonate (Renvela -) 1,600 mg PO TIDCM [facility] Last Admin: 08/01/16 09:36 Dose: Not Given Simethicone (Mylicon -) 80 mg PO Q4H PRN PRN Reason: GAS Last Admin: 07/31/16 22:32 Dose: 80 mg - Objective Vital Signs: Vital Signs Temperature 98.1 F 08/01/16 06:00 Pulse Rate 81 08/01/16 06:00 Respiratory Rate 18 08/01/16 06:00 Blood Pressure 124/65 08/01/16 06:00 O2 Sat by Pulse Oximetry (%) 95 07/31/16 21:00 Neck: Yes: Supple Cardiovascular: Yes: Regular Rate and Rhythm, Murmur (2/6 LUIS MIGUEL), S1, S2 Respiratory: Yes: Diminished Gastrointestinal: Yes: Normal Bowel Sounds, Soft. No: Tenderness Edema: No Labs: CBC, BMP 07/31/16 10:51 07/30/16 09:30 Laboratory Results - last 24 hr 07/31/16 08/01/16 18:20 01:35 PTT (Actin FS) 44.1 H D 62.8 H D INR, PTT INR 1.11 (0.82-1.09) 07/30/16 09:30 Problem List - Problems (1) AV fistula thrombosis Code(s): T82.868A - THROMBOSIS DUE TO VASCULAR PROSTH DEV/GRFT, INIT Qualifiers: Encounter type: initial encounter Qualified Code(s): T82.868A - Thrombosis due to vascular prosthetic devices, implants and grafts, initial encounter (2) Atrial flutter Code(s): I48.92 - UNSPECIFIED ATRIAL FLUTTER Qualifiers: Atrial flutter type: typical Qualified Code(s): I48.3 - Typical atrial flutter (3) ESRD on hemodialysis Code(s): N18.6 - END STAGE RENAL DISEASE Z99.2 - DEPENDENCE ON RENAL DIALYSIS (4) Acute on chronic systolic and diastolic heart failure, NYHA class 3 Code(s): I50.43 - ACUTE ON CHRONIC COMBINED SYSTOLIC AND DIASTOLIC HRT FAIL (5) Aortic stenosis Code(s): I35.0 - NONRHEUMATIC AORTIC (VALVE) STENOSIS Qualifiers: Cardiac valve disease etiology: nonrheumatic Qualified Code(s): I35.0 - Nonrheumatic aortic (valve) stenosis (6) CAD (coronary artery disease) Code(s): I25.10 - ATHSCL HEART DISEASE OF [place] CORONARY ARTERY W/O ANG PCTRS Qualifiers: Coronary Disease-Associated Artery/Lesion type: [place] artery [place] vs. transplanted heart: [place] heart Associated angina: without angina Qualified Code(s): I25.10 - Atherosclerotic heart disease of [place] coronary artery without angina pectoris (7) Diabetes Code(s): E11.9 - TYPE 2 DIABETES MELLITUS WITHOUT COMPLICATIONS Qualifiers: Diabetes mellitus type: type 2 Diabetes mellitus complication status: without complication Diabetes mellitus watermaster insulin use: without watermaster use Qualified Code(s): E11.9 - Type 2 diabetes mellitus without complications (8) HTN (hypertension) Code(s): I10 - ESSENTIAL (PRIMARY) HYPERTENSION Qualifiers: Hypertension type: renovascular hypertension Qualified Code(s): I15.0 - Renovascular hypertension (9) History of percutaneous coronary intervention Code(s): Z98.89 - OTHER SPECIFIED POSTPROCEDURAL STATES * DO NOT USE * (10) Hyperlipidemia Code(s): E78.5 - HYPERLIPIDEMIA, UNSPECIFIED Qualifiers: Hyperlipidemia type: pure hypercholesterolemia Qualified Code(s): E78.00 - Pure hypercholesterolemia, unspecified; E78.0 - Pure hypercholesterolemia (11) Hypothyroidism Code(s): E03.9 - HYPOTHYROIDISM, UNSPECIFIED Qualifiers: Hypothyroidism type: unspecified Qualified Code(s): E03.9 - Hypothyroidism, unspecified (12) Influenza A Code(s): J10.1 - FLU DUE TO OTH IDENT INFLUENZA VIRUS W OTH RESP MANIFEST (13) Single implantable cardioverter-defibrillator (ICD) in situ Code(s): Z95.810 - PRESENCE OF AUTOMATIC (IMPLANTABLE) CARDIAC DEFIBRILLATOR (14) Troponin level elevated Code(s): R79.89 - OTHER SPECIFIED ABNORMAL FINDINGS OF BLOOD CHEMISTRY Assessment/Plan 1. Newly diagnosed atypical atrial flutter 2. LV systolic dysfunction with history of failure, currently compensated S/P ICD 3. Elevated troponin - subendocardial ischemia 4. CAD, s/p PCI/stent, angina 5. ESRD on HD with thrombosed LUE AVF post permacath placement and planned for LUE HeRo graft 6. Type 2 DM 7. Hypercholesterolemia 8. Mild aortic stenosis and aortic regurgitation 9. Anemia and thrombcytopenia 10. Hypothyroidism 11. Influenza A post Tamiflu 12. Hyponatremia PLAN: 1. Heparin drip pre-op - start Coumadin per INR once post-op 2. Continue Metoprolol ER 50 mg qd and Midodrine 20/10 qd as tolerated 3. ICD interrogation as outpatient 4. HD via PC per renal and proceed with HeRo graft 5. Consider synchronized cardioversion for her atrial flutter at some point in the near future Further plans are to follow Len Guevara MD
--- NOTE | 2016-08-01 14:16 | PN ---
Progress Note (short form) - Note Progress Note: Renal Follow up for ESRD on HD Pt seen and examined at the bedside no acute complaints permacath placement done this past monday had a complete dialysis on Monday for OR today for graft placement Vital Signs Temperature 98.1 F 08/01/16 06:00 Pulse Rate 81 08/01/16 06:00 Respiratory Rate 18 08/01/16 09:00 Blood Pressure 124/65 08/01/16 06:00 O2 Sat by Pulse Oximetry (%) 96 08/01/16 09:00 Gen: NAD, awake and alert CVS: RRR, + systolic murmur Lungs: CTA Abd: soft NT/ND Ext: 1+ edema, no clubbing or cyanosis CBC, BMP 07/31/16 10:51 07/30/16 09:30 Current Medications Acetaminophen (Tylenol -) 650 mg PO Q6H PRN PRN Reason: FEVER OR PAIN Last Admin: 07/31/16 10:03 Dose: 650 mg Heparin Sodium (Porcine) (Heparin -) 1,000 unit IVPUSH PRN PRN PRN Reason: Heparin Last Admin: 07/31/16 19:39 Dose: 1,000 unit Heparin Sodium (Porcine) (Heparin -) 5,000 unit IVPUSH PRN PRN PRN Reason: Heparin Hydromorphone HCl (Dilaudid Injection -) 1 mg IVPB Q4H PRN PRN Reason: PAIN Last Admin: 07/31/16 10:35 Dose: 1 mg Heparin Sodium (Porcine) 25, (000 unit/ Sodium Chloride) 500 mls @ 16 mls/hr IV TITR LINDA; 800 UNIT/HR PRN Reason: Protocol Last Admin: 08/01/16 02:51 Dose: 18 mls/hr Ipratropium [place] (Atrovent 0.02% Nebulizer -) 1 amp NEB QID PRN PRN Reason: SHORTNESS OF BREATH Levothyroxine Sodium (Synthroid -) 100 mcg PO DAILY@0700 [facility] Last Admin: 08/01/16 06:00 Dose: 100 mcg Metoprolol Succinate (Toprol Xl -) 25 mg PO SuTuThSa@1000 [facility] Last Admin: 07/31/16 09:21 Dose: 25 mg Midodrine (Proamatine -) 20 mg PO MoWeFr [facility] Multivitamins/Minerals/Vitamin C (Tab-A-Vit -) 1 tab PO DAILY [facility] Last Admin: 07/31/16 09:21 Dose: 1 tab Pregabalin (Lyrica -) 75 mg PO DAILY [facility] Last Admin: 07/31/16 09:21 Dose: 75 mg Sertraline HCl (Zoloft -) 50 mg PO DAILY [facility] Last Admin: 07/31/16 09:21 Dose: 50 mg Sevelamer Carbonate (Renvela -) 1,600 mg PO TIDCM [facility] Last Admin: 08/01/16 09:36 Dose: Not Given Simethicone (Mylicon -) 80 mg PO Q4H PRN PRN Reason: GAS Last Admin: 07/31/16 22:32 Dose: 80 mg A/P 89 year old woman with PMhx of ESRD on HD (MWF), DM Type 2, CAD, Hypothyroidism , Anemia, Renal Osteodystrophy, Recent hospitlization for Influenza presents with clotted AVF. #Dialysis Access problem/Clotted AVF/ESRD on HD s/p permacath placement as AVF unsuitable for further interventions as per vascular sx will get AVG placement today Will plan for dialysis this evening or tomorrow morning depending on time of Sx #Hyponatremia Related to volume expansion in setting of ESRD Monitor for improvement with UF #Anemia Will continue HILARIO with HD Yahir Cortez DO
[2016-08-01] MEDS ORDERED: HEPARIN NA (PORCINE) 5,000 UNITS/ML 1ML VIAL ONE ×2 (16:00→20:41)
[2016-08-01] MEDS ORDERED: POVIDONE-IODINE OINTMENT 10% - 28.4 GM TUBE ONE (16:05)
[2016-08-01] MEDS ORDERED: LIDOCAINE HCL 1%, 10 MG/ML (20ML VIAL) ONE (16:07)
[2016-08-01] MEDS ORDERED: PROPOFOL 20 ML ONE (19:21)
[2016-08-01] MEDS ORDERED: DEXAMETHASONE SOD PHOSPHATE 4 MG/1 ML VIAL ONE (19:32)
[2016-08-01] MEDS ORDERED: MINERAL OIL 25 ML OIL ONE ×2 (19:58→20:00)
[2016-08-01] MEDS: SERTRALINE HCL 50 MG TABLET (FP) PO SCH (20:06)
[2016-08-01] MEDS: PREGABALIN 75 MG CAPSULE PO SCH (20:06)
[2016-08-01] MEDS: MULTIVITAMINS (DAILY MVI) TABLET (FP) PO SCH (20:06)
[2016-08-01] MEDS ORDERED: MINERAL OIL 25 ML OIL TP ONE (20:21)
[2016-08-01] MEDS ORDERED: GELATIN, ABSORBABLE 100 EACH SPONGE TP ONE (20:45)
[2016-08-01] MEDS ORDERED: THROMBIN (BOVINE) 5,000 UNIT VIAL TP ONE (20:45)
--- NOTE | 2016-08-01 21:09 | OP ---
Operative Note - Note: Operative Date: 08/01/16 Pre-Operative Diagnosis: ESRD Operation: Placement HeRO graft left arm, thrombectomy brachial artery Findings: Patent subclavian vein with stent impinging lumen from cephalic vein. Brachial artery cephalic vein fistula stump clotted Implants: HeRO catheter and graft Post-Operative Diagnosis: Same as Pre-op Surgeon: Dino Munguia Patient Services Representative: Qasim Valdez Anesthesiologist/HEALTH AND SAFETY REPRESENTATIVE: John Lowry Anesthesia: General Estimated Blood Loss (mls): 100
--- NOTE | 2016-08-01 21:21 | SURG ---
Surgery Collar Tailor Note Collar Tailor: Qasim Valdez PA-C Date of Service: 08/01/16 Diagnosis: ESRD Procedure: Placement HeRO graft left arm, thrombectomy brachial artery I was present for the entirety of the operative procedure. For further detail, please refer to operative report. Visit type - Case Type Case Type: ED Admission - Emergency Emergency Visit: Yes ED Registration Date: 07/30/16 Care time: The patient presented to the Emergency Department on the above date and was hospitalized for further evaluation of their emergent condition. - New patient This patient is new to me today: Yes Date on this admission: 08/01/16
[2016-08-01] MEDS ORDERED: ONDANSETRON 4 MG/2 ML VIAL IVPUSH PRN (21:26)
[2016-08-01] MEDS ORDERED: PROMETHAZINE HCL 25 MG/1 ML VIAL IVPUSH PRN (21:26)
[2016-08-01] MEDS ORDERED: SODIUM CHLORIDE 1,000 ML IV SCH (21:30)
[2016-08-01] MEDS ORDERED: HEPARIN NA (PORCINE) 5,000 UNITS/ML 1ML VIAL IVPUSH PRN ×4 (21:39)
[2016-08-01] MEDS ORDERED: SIMETHICONE 80 MG TAB.CHEW (FP) PO PRN (21:39)
[2016-08-01] MEDS ORDERED: HEPARIN - 25,000 UNIT in SODIUM CHLORIDE 495 ML IV SCH (21:39)
[2016-08-01] MEDS ORDERED: IPRATROPIUM BR 0.02% 0.5 MG/2.5 ML VIAL.NEB. NEB PRN (21:39)
[2016-08-01] MEDS ORDERED: HEPARIN INFUSION - 500 ML IVPB SCH (22:00)
[2016-08-02] MEDS: HEPARIN - 25,000 UNIT in SODIUM CHLORIDE 495 ML IV SCH (05:59)
[2016-08-02] MEDS: LEVOTHYROXINE NA 100 MCG TABLET (FP) PO SCH (06:00)
[2016-08-02] MEDS ORDERED: HEPARIN INFUSION - 500 ML IVPB SCH (06:00)
[2016-08-02 07:05] LABS: MCH 31.2 pg (25.7-33.7); MCHC 32.4 g/dl (32.0-36.0); MEAN CELL VOLUME 96.4 fl (80-96); MEAN PLT VOLUME 9.8 fl (7.5-11.1); PLATELET COUNT 96 K/MM3 (134-434); RDW 16.9 % (11.6-15.6); WHITE BLOOD COUNT 5.3 K/mm3 (4.0-10.0)
--- NOTE | 2016-08-02 07:11 | PN ---
Progress Note (short form) - Note Progress Note: Chief Complaint: Events noted, notes reviewed, post op day 1 post placement HeRO graft left arm and thrombectomy brachial artery, denies any chest pain or dyspnea History of Present Illness: Seen and examined on telemetry. Events noted, notes reviewed, post op day 1 post placement HeRO graft left arm and thrombectomy brachial artery, denies any chest pain or dyspnea Atrial flutter rate controlled is persistent re-initiated on Heparin drip and to transition to Coumadin - Current Medication List Current Medications Acetaminophen (Tylenol -) 650 mg PO Q6H PRN PRN Reason: FEVER OR PAIN Heparin Sodium (Porcine) (Heparin -) 1,000 unit IVPUSH PRN PRN PRN Reason: Heparin Heparin Sodium (Porcine) (Heparin -) 5,000 unit IVPUSH PRN PRN PRN Reason: Heparin Hydromorphone HCl (Dilaudid Injection -) 1 mg IVPB Q4H PRN PRN Reason: PAIN Heparin Sodium (Porcine) 25, (000 unit/ Sodium Chloride) 500 mls @ 16 mls/hr IV TITR LINDA; 800 UNIT/HR PRN Reason: Protocol Last Admin: 08/02/16 05:59 Dose: 18 mls/hr Ipratropium [place] (Atrovent 0.02% Nebulizer -) 1 amp NEB QID PRN PRN Reason: SHORTNESS OF BREATH Levothyroxine Sodium (Synthroid -) 100 mcg PO DAILY@0700 [facility] Last Admin: 08/02/16 06:00 Dose: 100 mcg Metoprolol Succinate (Toprol Xl -) 25 mg PO SuTuThSa@1000 [facility] Midodrine (Proamatine -) 20 mg PO MoWeFr@10 [facility] Multivitamins/Minerals/Vitamin C (Tab-A-Vit -) 1 tab PO DAILY [facility] Pregabalin (Lyrica -) 75 mg PO DAILY [facility] Sertraline HCl (Zoloft -) 50 mg PO DAILY [facility] Sevelamer Carbonate (Renvela -) 1,600 mg PO TIDCM [facility] Simethicone (Mylicon -) 80 mg PO Q4H PRN PRN Reason: GAS Review of Systems Cardiovascular: As noted above Respiratory: denies: denies: Cough or Sputum Production Gastrointestinal: denies: Nausea, Vomiting, Diarrhea, Constipation or Abdominal Discomfort Musculoskeletal: No Symptoms Reported Endocrine: No Symptoms Reported - Objective Vital Signs: Last Vital Signs Temp Pulse Resp BP Pulse Ox 97.7 F 75 16 100/48 96 08/02/16 06:00 08/02/16 06:00 08/02/16 06:00 08/02/16 06:00 08/01/16 23:00 Neck: Supple Negative JVD No Bruit Cardiovascular: S1 S2 Irregularly Irregular Grade 2/6 LUIS MIGUEL Respiratory: Yes: Diminished Gastrointestinal: Soft Benign Normal Bowel Sounds Ext: No Edema Labs: CBC, BMP 08/02/16 05:35 07/30/16 09:30 INR, PTT INR 1.11 (0.82-1.09) 07/30/16 09:30 Assessment/Plan ASSESSMENT: 1. Newly diagnosed atypical atrial flutter, [id number] score of 5 on Heparin and to transition to Coumadin therapy 2. LV systolic dysfunction with chronic class I-II NYHA classification LV failure, compensated 3. CAD post PCI/stent, Elevated Troponin I related to sub-endocardial ischemia/ demand ischemia, angina pectoris 4. Post prophylactic ICD implant 5. DM 6. Hypercholesterolemia 7. Mild aortic stenosis and aortic regurgitation 8. ESRD on HD with thrombosed LUE AVF post placement of HeRO graft left arm and thrombectomy brachial artery 9. Hypothyroidism 10 .Anemia and thrombcytopenia 11. Influenza A post Tamiflu PLAN: 1. Continue Heparin drip and start Coumadin as per INR 2. Continue Toprol XL as ordered 3. Continue Midodrine as ordered 4. HD as per renal service 5. If the above noted atrial arrhythmia is persistent recommend synchronized cardioversion in 4-6 weeks post adequate A/C, discussed in detail with the patient Ayesha Kamara MD
--- NOTE | 2016-08-02 08:32 | PN ---
Progress Note (short form) - Note Progress Note: Anesthesia postop note 89 y/o F s/p GA for left AV graft thrombectomy, hero graft placement POD#1, vss, aaox3, pain well controlled. No anesthesia complications.
[2016-08-02] MEDS ORDERED: PT OWN MED DRAWER 7, Y5N ONE (09:00)
--- NOTE | 2016-08-02 09:04 | PN ---
Progress Note (short form) - Note Progress Note: POD 1 Wounds clean Bruit in graft Stable overnight OOB OK to start Coumadin as per Cardiology Problem List - Problems (1) ESRD on hemodialysis Code(s): N18.6 - END STAGE RENAL DISEASE Z99.2 - DEPENDENCE ON RENAL DIALYSIS
--- NOTE | 2016-08-02 09:06 | PN ---
Progress Note, Physician Chief Complaint: s/p hero graft no oozing from graft Undergoing dialysis now no distress feels well - Current Medication List Current Medications: Active Medications Acetaminophen (Tylenol -) 650 mg PO Q6H PRN PRN Reason: FEVER OR PAIN Heparin Sodium (Porcine) (Heparin -) 1,000 unit IVPUSH PRN PRN PRN Reason: Heparin Heparin Sodium (Porcine) (Heparin -) 5,000 unit IVPUSH PRN PRN PRN Reason: Heparin Hydromorphone HCl (Dilaudid Injection -) 1 mg IVPB Q4H PRN PRN Reason: PAIN Heparin Sodium (Porcine) 25, (000 unit/ Sodium Chloride) 500 mls @ 16 mls/hr IV TITR LINDA; 800 UNIT/HR PRN Reason: Protocol Last Admin: 08/02/16 05:59 Dose: 18 mls/hr Ipratropium [place] (Atrovent 0.02% Nebulizer -) 1 amp NEB QID PRN PRN Reason: SHORTNESS OF BREATH Levothyroxine Sodium (Synthroid -) 100 mcg PO DAILY@0700 [facility] Last Admin: 08/02/16 06:00 Dose: 100 mcg Metoprolol Succinate (Toprol Xl -) 25 mg PO SuTuThSa@1000 [facility] Midodrine (Proamatine -) 20 mg PO MoWeFr@10 [facility] Multivitamins/Minerals/Vitamin C (Tab-A-Vit -) 1 tab PO DAILY [facility] Pregabalin (Lyrica -) 75 mg PO DAILY [facility] Sertraline HCl (Zoloft -) 50 mg PO DAILY [facility] Sevelamer Carbonate (Renvela -) 1,600 mg PO TIDCM [facility] Simethicone (Mylicon -) 80 mg PO Q4H PRN PRN Reason: GAS Warfarin Sodium (Coumadin Protocol) 1 each PO 1800 [facility] PRN Reason: Protocol - Objective Vital Signs: Vital Signs Temperature 97.7 F 08/02/16 06:00 Pulse Rate 75 08/02/16 06:00 Respiratory Rate 16 08/02/16 06:00 Blood Pressure 100/48 08/02/16 06:00 O2 Sat by Pulse Oximetry (%) 96 08/01/16 23:00 Constitutional: Yes: No Distress Cardiovascular: Yes: Regular Rate and Rhythm Respiratory: Yes: Diminished, Other (right chest wall permacath) Gastrointestinal: Yes: Normal Bowel Sounds, Soft, Abdomen, Obese. No: Distention, Tenderness Musculoskeletal: Yes: Other (left hero graft) Edema: No Psychiatric: Yes: Alert, Oriented Labs: CBC, BMP 08/02/16 05:35 07/30/16 09:30 INR, PTT INR 1.11 (0.82-1.09) 07/30/16 09:30 Problem List - Problems (1) AV fistula thrombosis Code(s): T82.868A - THROMBOSIS DUE TO VASCULAR PROSTH DEV/GRFT, INIT Qualifiers: Encounter type: initial encounter Qualified Code(s): T82.868A - Thrombosis due to vascular prosthetic devices, implants and grafts, initial encounter (2) ESRD on hemodialysis Code(s): N18.6 - END STAGE RENAL DISEASE Z99.2 - DEPENDENCE ON RENAL DIALYSIS (3) CAD (coronary artery disease) Code(s): I25.10 - ATHSCL HEART DISEASE OF [place] CORONARY ARTERY W/O ANG PCTRS Qualifiers: Coronary Disease-Associated Artery/Lesion type: [place] artery [place] vs. transplanted heart: [place] heart Associated angina: without angina Qualified Code(s): I25.10 - Atherosclerotic heart disease of [place] coronary artery without angina pectoris (4) Atrial flutter Code(s): I48.92 - UNSPECIFIED ATRIAL FLUTTER Qualifiers: Atrial flutter type: typical Qualified Code(s): I48.3 - Typical atrial flutter Assessment/Plan PLAN HD per renal continue with meds On Heparin infusion Start Coumadin today Monitor INR Pt eval
[2016-08-02] MEDS: SEVELAMER CARBONATE 800 MG TAB (FP) PO SCH ×3 (09:14→18:51)
[2016-08-02] MEDS: MULTIVITAMINS (DAILY MVI) TABLET (FP) PO SCH (09:14)
[2016-08-02] MEDS: PREGABALIN 75 MG CAPSULE PO SCH (09:15)
[2016-08-02] MEDS: SERTRALINE HCL 50 MG TABLET (FP) PO SCH (09:15)
[2016-08-02] MEDS: HYDROmorphone HCL CARPU-JECT 1 MG/1 ML DISP.SYRIN IVPB PRN (09:20)
[2016-08-02] MEDS: ALBUMIN HUMAN 25% 100 ML VIAL IVPB SCH ×2 (09:30→11:30)
[2016-08-02 11:39] LABS: INR 1.09 (0.82-1.09)
[2016-08-02] MEDS: METOPROLOL SUCCINATE 25 MG TAB.SR.24H (FP) PO SCH (13:46)
--- NOTE | 2016-08-02 15:30 | PN ---
Progress Note (short form) - Note Progress Note: Renal Follow up for ESRD on HD Pt seen and examined with dialysis BP is low, to get low temp and IV Albumin UF 2L as tolerated Vital Signs Temperature 97.8 F 08/02/16 14:22 Pulse Rate 81 08/02/16 14:22 Respiratory Rate 18 08/02/16 14:22 Blood Pressure 83/50 08/02/16 14:22 O2 Sat by Pulse Oximetry (%) 95 08/02/16 09:00 Gen: NAD, awake and alert CVS: RRR, + systolic murmur Lungs: CTA Abd: soft NT/ND Ext: 1+ edema, no clubbing or cyanosis CBC, BMP 08/02/16 05:35 07/30/16 09:30 Current Medications Acetaminophen (Tylenol -) 650 mg PO Q6H PRN PRN Reason: FEVER OR PAIN Heparin Sodium (Porcine) (Heparin -) 1,000 unit IVPUSH PRN PRN PRN Reason: Heparin Heparin Sodium (Porcine) (Heparin -) 5,000 unit IVPUSH PRN PRN PRN Reason: Heparin Hydromorphone HCl (Dilaudid Injection -) 1 mg IVPB Q4H PRN PRN Reason: PAIN Last Admin: 08/02/16 09:20 Dose: 1 mg Heparin Sodium (Porcine) 25, (000 unit/ Sodium Chloride) 500 mls @ 16 mls/hr IV TITR LINDA; 800 UNIT/HR PRN Reason: Protocol Last Admin: 08/02/16 05:59 Dose: 18 mls/hr Ipratropium [place] (Atrovent 0.02% Nebulizer -) 1 amp NEB QID PRN PRN Reason: SHORTNESS OF BREATH Levothyroxine Sodium (Synthroid -) 100 mcg PO DAILY@0700 [facility] Last Admin: 08/02/16 06:00 Dose: 100 mcg Metoprolol Succinate (Toprol Xl -) 25 mg PO SuTuThSa@1000 [facility] Last Admin: 08/02/16 13:46 Dose: Not Given Midodrine (Proamatine -) 20 mg PO MoWeFr@10 [facility] Multivitamins/Minerals/Vitamin C (Tab-A-Vit -) 1 tab PO DAILY [facility] Last Admin: 08/02/16 09:14 Dose: 1 tab Pregabalin (Lyrica -) 75 mg PO DAILY [facility] Last Admin: 08/02/16 09:15 Dose: 75 mg Sertraline HCl (Zoloft -) 50 mg PO DAILY [facility] Last Admin: 08/02/16 09:15 Dose: 50 mg Sevelamer Carbonate (Renvela -) 1,600 mg PO TIDCM [facility] Last Admin: 08/02/16 09:14 Dose: 1,600 mg Simethicone (Mylicon -) 80 mg PO Q4H PRN PRN Reason: GAS Warfarin Sodium (Coumadin Protocol) 1 each PO 1800 [facility] PRN Reason: Protocol A/P 89 year old woman with PMhx of ESRD on HD (MWF), DM Type 2, CAD, Hypothyroidism , Anemia, Renal Osteodystrophy, Recent hospitlization for Influenza presents with clotted AVF. #Dialysis Access problem/Clotted AVF/ESRD on HD tolerating dialysis well today will plan for short tx in the AM prior to discharge s/p AVG placement #Anemia Will continue HILARIO with HD Yahir Cortez DO
[2016-08-02] MEDS ORDERED: WARFARIN NA 2.5 MG TABLET (FP) PO ONE (18:00)
[2016-08-02] MEDS: WARFARIN PROTOCOL PO SCH (19:24)
[2016-08-03] MEDS: HYDROmorphone HCL CARPU-JECT 1 MG/1 ML DISP.SYRIN IVPB PRN (02:10)
[2016-08-03] MEDS: LEVOTHYROXINE NA 100 MCG TABLET (FP) PO SCH (06:29)
[2016-08-03] MEDS: HEPARIN - 25,000 UNIT in SODIUM CHLORIDE 495 ML IV SCH ×3 (06:29→17:43)
[2016-08-03 07:32] LABS: MCH 30.3 pg (25.7-33.7); MCHC 31.7 g/dl (32.0-36.0); MEAN CELL VOLUME 95.7 fl (80-96); MEAN PLT VOLUME 9.2 fl (7.5-11.1); PLATELET COUNT 80 K/MM3 (134-434); RDW 16.6 % (11.6-15.6); WHITE BLOOD COUNT 6.4 K/mm3 (4.0-10.0)
[2016-08-03] MEDS ORDERED: PT OWN MED DRAWER 7, Y5N ONE ×2 (08:29→08:59)
[2016-08-03] MEDS: SEVELAMER CARBONATE 800 MG TAB (FP) PO SCH ×3 (08:35→17:11)
[2016-08-03] MEDS: MIDODRINE HCL 5 MG TABLET PO SCH (09:23)
--- NOTE | 2016-08-03 10:37 | PN ---
Progress Note, Physician Chief Complaint: dialysis today no complaints - Current Medication List Current Medications: Active Medications Acetaminophen (Tylenol -) 650 mg PO Q6H PRN PRN Reason: FEVER OR PAIN Heparin Sodium (Porcine) (Heparin -) 1,000 unit IVPUSH PRN PRN PRN Reason: Heparin Heparin Sodium (Porcine) (Heparin -) 5,000 unit IVPUSH PRN PRN PRN Reason: Heparin Hydromorphone HCl (Dilaudid Injection -) 1 mg IVPB Q4H PRN PRN Reason: PAIN Last Admin: 08/03/16 02:10 Dose: 1 mg Heparin Sodium (Porcine) 25, (000 unit/ Sodium Chloride) 500 mls @ 16 mls/hr IV TITR LINDA; 800 UNIT/HR PRN Reason: Protocol Last Admin: 08/03/16 06:29 Dose: 18 mls/hr Ipratropium [place] (Atrovent 0.02% Nebulizer -) 1 amp NEB QID PRN PRN Reason: SHORTNESS OF BREATH Levothyroxine Sodium (Synthroid -) 100 mcg PO DAILY@0700 [facility] Last Admin: 08/03/16 06:29 Dose: 100 mcg Metoprolol Succinate (Toprol Xl -) 25 mg PO SuTuThSa@1000 [facility] Last Admin: 08/02/16 13:46 Dose: Not Given Midodrine (Proamatine -) 20 mg PO MoWeFr@10 [facility] Last Admin: 08/03/16 09:23 Dose: 20 mg Multivitamins/Minerals/Vitamin C (Tab-A-Vit -) 1 tab PO DAILY [facility] Last Admin: 08/02/16 09:14 Dose: 1 tab Pregabalin (Lyrica -) 75 mg PO DAILY [facility] Last Admin: 08/02/16 09:15 Dose: 75 mg Sertraline HCl (Zoloft -) 50 mg PO DAILY [facility] Last Admin: 08/02/16 09:15 Dose: 50 mg Sevelamer Carbonate (Renvela -) 1,600 mg PO TIDCM [facility] Last Admin: 08/03/16 08:35 Dose: 1,600 mg Simethicone (Mylicon -) 80 mg PO Q4H PRN PRN Reason: GAS Warfarin Sodium (Coumadin Protocol) 1 each PO 1800 [facility] PRN Reason: Protocol Last Admin: 08/02/16 19:24 Dose: Not Given - Objective Vital Signs: Vital Signs Temperature 98.3 F 08/03/16 06:00 Pulse Rate 94 H 08/03/16 06:00 Respiratory Rate 16 08/03/16 06:00 Blood Pressure 85/48 08/03/16 06:00 O2 Sat by Pulse Oximetry (%) 95 08/02/16 21:00 Constitutional: Yes: No Distress Cardiovascular: Yes: Regular Rate and Rhythm Respiratory: Yes: Diminished Gastrointestinal: Yes: Normal Bowel Sounds, Soft. No: Distention, Tenderness Edema: No Labs: CBC, BMP 08/03/16 06:00 INR, PTT INR 1.09 (0.82-1.09) 08/02/16 05:35 Problem List - Problems (1) AV fistula thrombosis Code(s): T82.868A - THROMBOSIS DUE TO VASCULAR PROSTH DEV/GRFT, INIT Qualifiers: Encounter type: initial encounter Qualified Code(s): T82.868A - Thrombosis due to vascular prosthetic devices, implants and grafts, initial encounter (2) ESRD on hemodialysis Code(s): N18.6 - END STAGE RENAL DISEASE Z99.2 - DEPENDENCE ON RENAL DIALYSIS (3) CAD (coronary artery disease) Code(s): I25.10 - ATHSCL HEART DISEASE OF [place] CORONARY ARTERY W/O ANG PCTRS Qualifiers: Coronary Disease-Associated Artery/Lesion type: [place] artery [place] vs. transplanted heart: [place] heart Associated angina: without angina Qualified Code(s): I25.10 - Atherosclerotic heart disease of [place] coronary artery without angina pectoris (4) Atrial flutter Code(s): I48.92 - UNSPECIFIED ATRIAL FLUTTER Qualifiers: Atrial flutter type: typical Qualified Code(s): I48.3 - Typical atrial flutter Assessment/Plan PLAN HD per renal continue with meds On Heparin infusion on Coumadin Monitor INR-- pending Pt eval
[2016-08-03 11:06] LABS: CALCIUM 8.9 mg/dL (8.5-10.1); CREATININE 4.8 mg/dL (0.55-1.02)
--- NOTE | 2016-08-03 11:41 | PN ---
Progress Note (short form) - Note Progress Note: Renal Follow up for ESRD on HD Pt seen and examined with dialysis BP 90/40, UF goal 0.5L Pt without complaints no sob or chest pain possible discharge today Vital Signs Temperature 98.3 F 08/03/16 06:00 Pulse Rate 94 H 08/03/16 06:00 Respiratory Rate 16 08/03/16 06:00 Blood Pressure 85/48 08/03/16 06:00 O2 Sat by Pulse Oximetry (%) 95 08/02/16 21:00 Intake & Output 07/31/16 08/01/16 08/02/16 08/03/16 23:59 23:59 23:59 23:59 Intake Total 202 616 100 366 Output Total 100 Balance 202 516 100 366 Weight 143 lb 2 oz Gen: NAD, awake and alert CVS: RRR, + systolic murmur Lungs: CTA Abd: soft NT/ND Ext: 1+ edema, no clubbing or cyanosis CBC, BMP 08/03/16 06:00 08/03/16 10:25 Laboratory Tests 03/21/16 03/21/16 08/03/16 13:00 17:45 10:25 Calcium 9.2 8.9 Phosphorus 2.5 D Current Medications Acetaminophen (Tylenol -) 650 mg PO Q6H PRN PRN Reason: FEVER OR PAIN Heparin Sodium (Porcine) (Heparin -) 1,000 unit IVPUSH PRN PRN PRN Reason: Heparin Heparin Sodium (Porcine) (Heparin -) 5,000 unit IVPUSH PRN PRN PRN Reason: Heparin Hydromorphone HCl (Dilaudid Injection -) 1 mg IVPB Q4H PRN PRN Reason: PAIN Last Admin: 08/03/16 02:10 Dose: 1 mg Heparin Sodium (Porcine) 25, (000 unit/ Sodium Chloride) 500 mls @ 16 mls/hr IV TITR LINDA; 800 UNIT/HR PRN Reason: Protocol Last Admin: 08/03/16 06:29 Dose: 18 mls/hr Ipratropium [place] (Atrovent 0.02% Nebulizer -) 1 amp NEB QID PRN PRN Reason: SHORTNESS OF BREATH Levothyroxine Sodium (Synthroid -) 100 mcg PO DAILY@0700 [facility] Last Admin: 08/03/16 06:29 Dose: 100 mcg Metoprolol Succinate (Toprol Xl -) 25 mg PO SuTuThSa@1000 [facility] Last Admin: 08/02/16 13:46 Dose: Not Given Midodrine (Proamatine -) 20 mg PO MoWeFr@10 [facility] Last Admin: 08/03/16 09:23 Dose: 20 mg Multivitamins/Minerals/Vitamin C (Tab-A-Vit -) 1 tab PO DAILY [facility] Last Admin: 08/02/16 09:14 Dose: 1 tab Pregabalin (Lyrica -) 75 mg PO DAILY [facility] Last Admin: 08/02/16 09:15 Dose: 75 mg Sertraline HCl (Zoloft -) 50 mg PO DAILY [facility] Last Admin: 08/02/16 09:15 Dose: 50 mg Sevelamer Carbonate (Renvela -) 1,600 mg PO TIDCM [facility] Last Admin: 08/03/16 08:35 Dose: 1,600 mg Simethicone (Mylicon -) 80 mg PO Q4H PRN PRN Reason: GAS Warfarin Sodium (Coumadin Protocol) 1 each PO 1800 [facility] PRN Reason: Protocol Last Admin: 08/02/16 19:24 Dose: Not Given A/P 89 year old woman with PMhx of ESRD on HD (MWF), DM Type 2, CAD, Hypothyroidism , Anemia, Renal Osteodystrophy, Recent hospitlization for Influenza presents with clotted AVF. #Dialysis Access problem/Clotted AVF/ESRD on HD short HD today with minimal UF to resume regular HD schedule continue Midodrine before HD will use low temp with HD to allow for UF with dialysis #Anemia Will continue HILARIO with HD Yahir Cortez DO
[2016-08-03] MEDS: PREGABALIN 75 MG CAPSULE PO SCH (13:16)
[2016-08-03] MEDS: MULTIVITAMINS (DAILY MVI) TABLET (FP) PO SCH (13:16)
[2016-08-03] MEDS: SERTRALINE HCL 50 MG TABLET (FP) PO SCH (13:17)
--- NOTE | 2016-08-03 13:17 | PN ---
Progress Note, Physician History of Present Illness: Seen post HD, denies chest pain, dyspnea, palpitations, near or true syncope, orthopnea, PND or LE edema. - Current Medication List Current Medications: Active Medications Acetaminophen (Tylenol -) 650 mg PO Q6H PRN PRN Reason: FEVER OR PAIN Heparin Sodium (Porcine) (Heparin -) 1,000 unit IVPUSH PRN PRN PRN Reason: Heparin Heparin Sodium (Porcine) (Heparin -) 5,000 unit IVPUSH PRN PRN PRN Reason: Heparin Hydromorphone HCl (Dilaudid Injection -) 1 mg IVPB Q4H PRN PRN Reason: PAIN Last Admin: 08/03/16 02:10 Dose: 1 mg Heparin Sodium (Porcine) 25, (000 unit/ Sodium Chloride) 500 mls @ 16 mls/hr IV TITR LINDA; 800 UNIT/HR PRN Reason: Protocol Last Admin: 08/03/16 06:29 Dose: 18 mls/hr Ipratropium [place] (Atrovent 0.02% Nebulizer -) 1 amp NEB QID PRN PRN Reason: SHORTNESS OF BREATH Levothyroxine Sodium (Synthroid -) 100 mcg PO DAILY@0700 [facility] Last Admin: 08/03/16 06:29 Dose: 100 mcg Metoprolol Succinate (Toprol Xl -) 25 mg PO SuTuThSa@1000 [facility] Last Admin: 08/02/16 13:46 Dose: Not Given Midodrine (Proamatine -) 20 mg PO MoWeFr@10 [facility] Last Admin: 08/03/16 09:23 Dose: 20 mg Multivitamins/Minerals/Vitamin C (Tab-A-Vit -) 1 tab PO DAILY [facility] Last Admin: 08/02/16 09:14 Dose: 1 tab Pregabalin (Lyrica -) 75 mg PO DAILY [facility] Last Admin: 08/02/16 09:15 Dose: 75 mg Sertraline HCl (Zoloft -) 50 mg PO DAILY [facility] Last Admin: 08/02/16 09:15 Dose: 50 mg Sevelamer Carbonate (Renvela -) 1,600 mg PO TIDCM [facility] Last Admin: 08/03/16 08:35 Dose: 1,600 mg Simethicone (Mylicon -) 80 mg PO Q4H PRN PRN Reason: GAS Warfarin Sodium (Coumadin Protocol) 1 each PO 1800 [facility] PRN Reason: Protocol Last Admin: 08/02/16 19:24 Dose: Not Given - Objective Vital Signs: Vital Signs Temperature 97.2 F L 08/03/16 09:55 Pulse Rate 62 08/03/16 12:10 Respiratory Rate 18 08/03/16 12:10 Blood Pressure 90/48 08/03/16 12:10 O2 Sat by Pulse Oximetry (%) 95 08/02/16 21:00 Constitutional: Yes: No Distress, Calm Neck: Yes: Supple Cardiovascular: Yes: Regular Rate and Rhythm Respiratory: Yes: Regular, Diminished Gastrointestinal: Yes: Normal Bowel Sounds, Soft Edema: No Labs: CBC, BMP 08/03/16 06:00 08/03/16 10:25 INR, PTT INR 1.09 (0.82-1.09) 08/02/16 05:35 Problem List - Problems (1) AV fistula thrombosis Code(s): T82.868A - THROMBOSIS DUE TO VASCULAR PROSTH DEV/GRFT, INIT Qualifiers: Encounter type: initial encounter Qualified Code(s): T82.868A - Thrombosis due to vascular prosthetic devices, implants and grafts, initial encounter (2) Atrial flutter Code(s): I48.92 - UNSPECIFIED ATRIAL FLUTTER Qualifiers: Atrial flutter type: typical Qualified Code(s): I48.3 - Typical atrial flutter (3) ESRD on hemodialysis Code(s): N18.6 - END STAGE RENAL DISEASE Z99.2 - DEPENDENCE ON RENAL DIALYSIS (4) Anemia Code(s): D64.9 - ANEMIA, UNSPECIFIED Qualifiers: Anemia type: unspecified type Qualified Code(s): D64.9 - Anemia, unspecified (5) Aortic stenosis Code(s): I35.0 - NONRHEUMATIC AORTIC (VALVE) STENOSIS Qualifiers: Cardiac valve disease etiology: nonrheumatic Qualified Code(s): I35.0 - Nonrheumatic aortic (valve) stenosis (6) CAD (coronary artery disease) Code(s): I25.10 - ATHSCL HEART DISEASE OF [place] CORONARY ARTERY W/O ANG PCTRS Qualifiers: Coronary Disease-Associated Artery/Lesion type: [place] artery [place] vs. transplanted heart: [place] heart Associated angina: without angina Qualified Code(s): I25.10 - Atherosclerotic heart disease of [place] coronary artery without angina pectoris (7) Coronary arteriosclerosis in [place] artery Code(s): I25.10 - ATHSCL HEART DISEASE OF [place] CORONARY ARTERY W/O ANG PCTRS (8) Diabetes Code(s): E11.9 - TYPE 2 DIABETES MELLITUS WITHOUT COMPLICATIONS Qualifiers: Diabetes mellitus type: type 2 Diabetes mellitus complication status: without complication Diabetes mellitus coremaker experimental insulin use: without mcc use Qualified Code(s): E11.9 - Type 2 diabetes mellitus without complications (9) ESRD on dialysis Code(s): N18.6 - END STAGE RENAL DISEASE Z99.2 - DEPENDENCE ON RENAL DIALYSIS (10) History of percutaneous coronary intervention Code(s): Z98.89 - OTHER SPECIFIED POSTPROCEDURAL STATES * DO NOT USE * (11) Hyperlipidemia Code(s): E78.5 - HYPERLIPIDEMIA, UNSPECIFIED Qualifiers: Hyperlipidemia type: pure hypercholesterolemia Qualified Code(s): E78.00 - Pure hypercholesterolemia, unspecified; E78.0 - Pure hypercholesterolemia (12) Hypothyroidism Code(s): E03.9 - HYPOTHYROIDISM, UNSPECIFIED Qualifiers: Hypothyroidism type: unspecified Qualified Code(s): E03.9 - Hypothyroidism, unspecified (13) Labile essential hypertension Code(s): I10 - ESSENTIAL (PRIMARY) HYPERTENSION (14) Single implantable cardioverter-defibrillator (ICD) in situ Code(s): Z95.810 - PRESENCE OF AUTOMATIC (IMPLANTABLE) CARDIAC DEFIBRILLATOR (15) Subendocardial ischemia Code(s): I24.8 - OTHER FORMS OF ACUTE ISCHEMIC HEART DISEASE (16) Systolic dysfunction without heart failure Code(s): I51.9 - HEART DISEASE, UNSPECIFIED (17) Troponin level elevated Code(s): R79.89 - OTHER SPECIFIED ABNORMAL FINDINGS OF BLOOD CHEMISTRY Assessment/Plan 01/14/2016 Mildly dilated and severely decreased LV fxn, severe TR, mild , [place], [place] 1. Newly diagnosed atypical atrial flutter, [id number] score of 5 on Heparin and to transition to Coumadin therapy 2. LV systolic dysfunction with chronic class I-II NYHA classification LV failure, compensated 3. CAD post PCI/stent, Elevated Troponin I related to sub-endocardial ischemia/ demand ischemia, angina pectoris 4. Post prophylactic ICD implant 5. DM 6. Hypercholesterolemia 7. Mild aortic stenosis and aortic regurgitation 8. ESRD on HD with thrombosed LUE AVF post placement of HeRO graft left arm and thrombectomy brachial artery 9. Hypothyroidism 10 .Anemia and thrombcytopenia 11. Influenza A post Tamiflu PLAN: 1. Continue Heparin drip and start Coumadin as per INR 2. Continue Toprol XL 25 qd 3. Continue Midodrine 20 qd 4. HD as per renal service 5. If the above noted atrial arrhythmia is persistent recommend synchronized cardioversion in 4-6 weeks post adequate A/C, discussed in detail with the patient
[2016-08-03 13:20] LABS: INR 1.31 (0.82-1.09); PROTHROMBIN TIME (PATIENT) 14.5 SEC (9.98-11.88)
[2016-08-03] MEDS: WARFARIN PROTOCOL PO SCH (17:11)
[2016-08-03] MEDS ORDERED: WARFARIN NA 2.5 MG TABLET (FP) PO ONE (18:00)
[2016-08-04] MEDS: HEPARIN - 25,000 UNIT in SODIUM CHLORIDE 495 ML IV SCH (06:02)
[2016-08-04] MEDS: LEVOTHYROXINE NA 100 MCG TABLET (FP) PO SCH (06:02)
[2016-08-04 07:52] LABS: MCH 30.3 pg (25.7-33.7); MCHC 31.4 g/dl (32.0-36.0); MEAN CELL VOLUME 96.5 fl (80-96); MEAN PLT VOLUME 9.5 fl (7.5-11.1); PLATELET COUNT 74 K/MM3 (134-434); RDW 16.9 % (11.6-15.6); WHITE BLOOD COUNT 5.5 K/mm3 (4.0-10.0)
[2016-08-04 07:54] LABS: BASOPHIL 0.5 % (0-2.0); EOSINOPHIL 0.3 % (0-4.5); MCH 30.6 pg (25.7-33.7); MCHC 31.7 g/dl (32.0-36.0); MEAN CELL VOLUME 96.6 fl (80-96); MEAN PLT VOLUME 9.4 fl (7.5-11.1); NEUTROPHILS 77.9 % (42.8-82.8); PLATELET COUNT 74 K/MM3 (134-434); RDW 16.8 % (11.6-15.6); WHITE BLOOD COUNT 5.7 K/mm3 (4.0-10.0)
[2016-08-04] MEDS: SEVELAMER CARBONATE 800 MG TAB (FP) PO SCH ×3 (08:20→17:37)
--- NOTE | 2016-08-04 09:41 | PN ---
Progress Note, Physician Chief Complaint: no complaints no chest pain ,palpitations or dizziness - Current Medication List Current Medications: Active Medications Acetaminophen (Tylenol -) 650 mg PO Q6H PRN PRN Reason: FEVER OR PAIN Heparin Sodium (Porcine) (Heparin -) 1,000 unit IVPUSH PRN PRN PRN Reason: Heparin Heparin Sodium (Porcine) (Heparin -) 5,000 unit IVPUSH PRN PRN PRN Reason: Heparin Hydromorphone HCl (Dilaudid Injection -) 1 mg IVPB Q4H PRN PRN Reason: PAIN Last Admin: 08/03/16 02:10 Dose: 1 mg Heparin Sodium (Porcine) 25, (000 unit/ Sodium Chloride) 500 mls @ 16 mls/hr IV TITR LINDA; 800 UNIT/HR PRN Reason: Protocol Last Admin: 08/04/16 06:02 Dose: Not Given Ipratropium [place] (Atrovent 0.02% Nebulizer -) 1 amp NEB QID PRN PRN Reason: SHORTNESS OF BREATH Levothyroxine Sodium (Synthroid -) 100 mcg PO DAILY@0700 [facility] Last Admin: 08/04/16 06:02 Dose: 100 mcg Metoprolol Succinate (Toprol Xl -) 25 mg PO SuTuThSa@1000 [facility] Last Admin: 08/02/16 13:46 Dose: Not Given Midodrine (Proamatine -) 20 mg PO MoWeFr@10 [facility] Last Admin: 08/03/16 09:23 Dose: 20 mg Multivitamins/Minerals/Vitamin C (Tab-A-Vit -) 1 tab PO DAILY [facility] Last Admin: 08/03/16 13:16 Dose: 1 tab Pregabalin (Lyrica -) 75 mg PO DAILY [facility] Last Admin: 08/03/16 13:16 Dose: 75 mg Sertraline HCl (Zoloft -) 50 mg PO DAILY [facility] Last Admin: 08/03/16 13:17 Dose: 50 mg Sevelamer Carbonate (Renvela -) 1,600 mg PO TIDCM [facility] Last Admin: 08/03/16 17:11 Dose: 1,600 mg Simethicone (Mylicon -) 80 mg PO Q4H PRN PRN Reason: GAS Last Admin: 08/03/16 14:13 Dose: 80 mg Warfarin Sodium (Coumadin Protocol) 1 each PO 1800 [facility] PRN Reason: Protocol Last Admin: 08/03/16 17:11 Dose: Not Given - Objective Vital Signs: Vital Signs Temperature 98.4 F 08/04/16 05:42 Pulse Rate 91 H 08/04/16 05:42 Respiratory Rate 16 08/04/16 05:42 Blood Pressure 110/52 08/04/16 05:42 O2 Sat by Pulse Oximetry (%) 99 08/03/16 21:00 Constitutional: Yes: No Distress Cardiovascular: Yes: Pulse Irregular, Other (right chest wall permacath) Respiratory: Yes: Diminished Gastrointestinal: Yes: Normal Bowel Sounds, Soft. No: Distention, Tenderness Musculoskeletal: Yes: Other (left AVF+) Edema: Yes Edema: LLE: 1+, RLE: 1+ Labs: CBC, BMP 08/04/16 06:20 08/03/16 10:25 INR, PTT INR 1.31 (0.82-1.09) H 08/03/16 06:00 Problem List - Problems (1) AV fistula thrombosis Code(s): T82.868A - THROMBOSIS DUE TO VASCULAR PROSTH DEV/GRFT, INIT Qualifiers: Encounter type: initial encounter Qualified Code(s): T82.868A - Thrombosis due to vascular prosthetic devices, implants and grafts, initial encounter (2) ESRD on hemodialysis Code(s): N18.6 - END STAGE RENAL DISEASE Z99.2 - DEPENDENCE ON RENAL DIALYSIS (3) CAD (coronary artery disease) Code(s): I25.10 - ATHSCL HEART DISEASE OF [place] CORONARY ARTERY W/O ANG PCTRS Qualifiers: Coronary Disease-Associated Artery/Lesion type: [place] artery [place] vs. transplanted heart: [place] heart Associated angina: without angina Qualified Code(s): I25.10 - Atherosclerotic heart disease of [place] coronary artery without angina pectoris (4) Atrial flutter Code(s): I48.92 - UNSPECIFIED ATRIAL FLUTTER Qualifiers: Atrial flutter type: typical Qualified Code(s): I48.3 - Typical atrial flutter Assessment/Plan PLAN HD per renal continue with meds On Heparin infusion on Coumadin- start 5 mg daily-- monitor INR Pt eval
[2016-08-04] MEDS ORDERED: BISACODYL 10 MG SUPP.RECT RC ONE (10:08)
[2016-08-04] MEDS: PREGABALIN 75 MG CAPSULE PO SCH (10:20)
[2016-08-04] MEDS: MULTIVITAMINS (DAILY MVI) TABLET (FP) PO SCH (10:25)
[2016-08-04] MEDS: METOPROLOL SUCCINATE 25 MG TAB.SR.24H (FP) PO SCH (10:25)
[2016-08-04] MEDS: SERTRALINE HCL 50 MG TABLET (FP) PO SCH (10:26)
[2016-08-04 11:17] LABS: INR 2.38 (0.82-1.09); PROTHROMBIN TIME (PATIENT) 26.7 SEC (9.98-11.88)
--- NOTE | 2016-08-04 11:28 | PN ---
Progress Note, Physician History of Present Illness: Denies chest pain, dyspnea, palpitations, near or true syncope, orthopnea, PND or LE edema. - Current Medication List Current Medications: Active Medications Acetaminophen (Tylenol -) 650 mg PO Q6H PRN PRN Reason: FEVER OR PAIN Heparin Sodium (Porcine) (Heparin -) 1,000 unit IVPUSH PRN PRN PRN Reason: Heparin Heparin Sodium (Porcine) (Heparin -) 5,000 unit IVPUSH PRN PRN PRN Reason: Heparin Hydromorphone HCl (Dilaudid Injection -) 1 mg IVPB Q4H PRN PRN Reason: PAIN Last Admin: 08/03/16 02:10 Dose: 1 mg Heparin Sodium (Porcine) 25, (000 unit/ Sodium Chloride) 500 mls @ 16 mls/hr IV TITR LINDA; 800 UNIT/HR PRN Reason: Protocol Last Admin: 08/04/16 06:02 Dose: Not Given Ipratropium [place] (Atrovent 0.02% Nebulizer -) 1 amp NEB QID PRN PRN Reason: SHORTNESS OF BREATH Levothyroxine Sodium (Synthroid -) 100 mcg PO DAILY@0700 [facility] Last Admin: 08/04/16 06:02 Dose: 100 mcg Metoprolol Succinate (Toprol Xl -) 25 mg PO SuTuThSa@1000 [facility] Last Admin: 08/04/16 10:25 Dose: 25 mg Midodrine (Proamatine -) 20 mg PO MoWeFr@10 [facility] Last Admin: 08/03/16 09:23 Dose: 20 mg Multivitamins/Minerals/Vitamin C (Tab-A-Vit -) 1 tab PO DAILY [facility] Last Admin: 08/04/16 10:25 Dose: 1 tab Pregabalin (Lyrica -) 75 mg PO DAILY [facility] Last Admin: 08/04/16 10:20 Dose: 75 mg Sertraline HCl (Zoloft -) 50 mg PO DAILY [facility] Last Admin: 08/04/16 10:26 Dose: 50 mg Sevelamer Carbonate (Renvela -) 1,600 mg PO TIDCM [facility] Last Admin: 08/04/16 08:20 Dose: 1,600 mg Simethicone (Mylicon -) 80 mg PO Q4H PRN PRN Reason: GAS Last Admin: 08/03/16 14:13 Dose: 80 mg Warfarin Sodium (Coumadin Protocol) 1 each PO 1800 [facility] PRN Reason: Protocol Last Admin: 08/03/16 17:11 Dose: Not Given Warfarin Sodium (Coumadin -) 5 mg PO DAILY@1800 [facility] - Objective Vital Signs: Vital Signs Temperature 98.4 F 08/04/16 05:42 Pulse Rate 91 H 08/04/16 05:42 Respiratory Rate 16 08/04/16 05:42 Blood Pressure 110/52 08/04/16 05:42 O2 Sat by Pulse Oximetry (%) 99 08/03/16 21:00 Constitutional: Yes: No Distress, Calm Neck: Yes: Supple Cardiovascular: Yes: Regular Rate and Rhythm Respiratory: Yes: Regular, Diminished Gastrointestinal: Yes: Normal Bowel Sounds, Soft Edema: No Labs: CBC, BMP 08/04/16 06:20 08/03/16 10:25 INR, PTT INR 2.38 (0.82-1.09) H D 08/04/16 09:30 Problem List - Problems (1) AV fistula thrombosis Code(s): T82.868A - THROMBOSIS DUE TO VASCULAR PROSTH DEV/GRFT, INIT Qualifiers: Encounter type: initial encounter Qualified Code(s): T82.868A - Thrombosis due to vascular prosthetic devices, implants and grafts, initial encounter (2) Atrial flutter Code(s): I48.92 - UNSPECIFIED ATRIAL FLUTTER Qualifiers: Atrial flutter type: typical Qualified Code(s): I48.3 - Typical atrial flutter (3) ESRD on hemodialysis Code(s): N18.6 - END STAGE RENAL DISEASE Z99.2 - DEPENDENCE ON RENAL DIALYSIS (4) Anemia Code(s): D64.9 - ANEMIA, UNSPECIFIED Qualifiers: Anemia type: unspecified type Qualified Code(s): D64.9 - Anemia, unspecified (5) Aortic stenosis Code(s): I35.0 - NONRHEUMATIC AORTIC (VALVE) STENOSIS Qualifiers: Cardiac valve disease etiology: nonrheumatic Qualified Code(s): I35.0 - Nonrheumatic aortic (valve) stenosis (6) CAD (coronary artery disease) Code(s): I25.10 - ATHSCL HEART DISEASE OF [place] CORONARY ARTERY W/O ANG PCTRS Qualifiers: Coronary Disease-Associated Artery/Lesion type: [place] artery [place] vs. transplanted heart: [place] heart Associated angina: without angina Qualified Code(s): I25.10 - Atherosclerotic heart disease of [place] coronary artery without angina pectoris (7) Coronary arteriosclerosis in [place] artery Code(s): I25.10 - ATHSCL HEART DISEASE OF [place] CORONARY ARTERY W/O ANG PCTRS (8) Diabetes Code(s): E11.9 - TYPE 2 DIABETES MELLITUS WITHOUT COMPLICATIONS Qualifiers: Diabetes mellitus type: type 2 Diabetes mellitus complication status: without complication Diabetes mellitus terminal block assembler insulin use: without senior living use Qualified Code(s): E11.9 - Type 2 diabetes mellitus without complications (9) ESRD on dialysis Code(s): N18.6 - END STAGE RENAL DISEASE Z99.2 - DEPENDENCE ON RENAL DIALYSIS (10) History of percutaneous coronary intervention Code(s): Z98.89 - OTHER SPECIFIED POSTPROCEDURAL STATES * DO NOT USE * (11) Hyperlipidemia Code(s): E78.5 - HYPERLIPIDEMIA, UNSPECIFIED Qualifiers: Hyperlipidemia type: pure hypercholesterolemia Qualified Code(s): E78.00 - Pure hypercholesterolemia, unspecified; E78.0 - Pure hypercholesterolemia (12) Hypothyroidism Code(s): E03.9 - HYPOTHYROIDISM, UNSPECIFIED Qualifiers: Hypothyroidism type: unspecified Qualified Code(s): E03.9 - Hypothyroidism, unspecified (13) Labile essential hypertension Code(s): I10 - ESSENTIAL (PRIMARY) HYPERTENSION (14) Single implantable cardioverter-defibrillator (ICD) in situ Code(s): Z95.810 - PRESENCE OF AUTOMATIC (IMPLANTABLE) CARDIAC DEFIBRILLATOR (15) Subendocardial ischemia Code(s): I24.8 - OTHER FORMS OF ACUTE ISCHEMIC HEART DISEASE (16) Systolic dysfunction without heart failure Code(s): I51.9 - HEART DISEASE, UNSPECIFIED (17) Troponin level elevated Code(s): R79.89 - OTHER SPECIFIED ABNORMAL FINDINGS OF BLOOD CHEMISTRY Assessment/Plan 01/14/2016 Mildly dilated and severely decreased LV fxn, severe TR, mild , [place], [place] 1. Newly diagnosed atypical atrial flutter, [id number] score of 5 with therapeutic INR 2. LV systolic dysfunction with chronic class I-II NYHA classification LV failure, compensated 3. CAD post PCI/stent, Elevated Troponin I related to sub-endocardial ischemia/ demand ischemia, angina pectoris 4. Post prophylactic ICD implant 5. DM 6. Hypercholesterolemia 7. Mild aortic stenosis and aortic regurgitation 8. ESRD on HD with thrombosed LUE AVF post placement of HeRO graft left arm and thrombectomy brachial artery 9. Hypothyroidism 10 .Anemia and thrombcytopenia 11. Influenza A post Tamiflu 12. Thrombocytopenia PLAN: 1. D/c Heparin drip and continue Coumadin as per INR 2. Continue Toprol XL 25 qd 3. Continue Midodrine 20 qd 4. HD as per renal service 5. If the above noted atrial arrhythmia is persistent recommend synchronized cardioversion in 4-6 weeks post adequate A/C, discussed in detail with the patient
--- NOTE | 2016-08-04 13:03 | PN ---
Progress Note (short form) - Note Progress Note: Renal Follow up for ESRD on HD Pt seen and examined at the bedside no acute complaints no sob or chest pain no fever or chills has some erythema at new AVG site s/p dialysis yesterday with 1.5kg UF Vital Signs Temperature 98.4 F 08/04/16 05:42 Pulse Rate 91 H 08/04/16 05:42 Respiratory Rate 16 08/04/16 05:42 Blood Pressure 110/52 08/04/16 05:42 O2 Sat by Pulse Oximetry (%) 99 08/03/16 21:00 Intake & Output 08/01/16 08/02/16 08/03/16 08/04/16 23:59 23:59 23:59 23:59 Intake Total 616 100 660 Output Total 100 Balance 516 100 660 Weight 143 lb 2 oz 141 lb Gen: NAD, awake and alert CVS: RRR, + systolic murmur Lungs: CTA Abd: soft NT/ND Ext: 1+ edema, no clubbing or cyanosis CBC, BMP 08/04/16 06:20 08/03/16 10:25 Laboratory Tests 08/03/16 08/04/16 10:25 09:30 INR 2.38 H D Calcium 8.9 Current Medications Acetaminophen (Tylenol -) 650 mg PO Q6H PRN PRN Reason: FEVER OR PAIN Hydromorphone HCl (Dilaudid Injection -) 1 mg IVPB Q4H PRN PRN Reason: PAIN Last Admin: 08/03/16 02:10 Dose: 1 mg Vancomycin HCl 1,000 mg/ (Dextrose) 250 mls @ 250 mls/hr IVPB ONCE ONE PRN Reason: Protocol Stop: 08/04/16 13:57 Ipratropium [place] (Atrovent 0.02% Nebulizer -) 1 amp NEB QID PRN PRN Reason: SHORTNESS OF BREATH Levothyroxine Sodium (Synthroid -) 100 mcg PO DAILY@0700 [facility] Last Admin: 08/04/16 06:02 Dose: 100 mcg Metoprolol Succinate (Toprol Xl -) 25 mg PO SuTuThSa@1000 [facility] Last Admin: 08/04/16 10:25 Dose: 25 mg Midodrine (Proamatine -) 20 mg PO MoWeFr@10 [facility] Last Admin: 08/03/16 09:23 Dose: 20 mg Multivitamins/Minerals/Vitamin C (Tab-A-Vit -) 1 tab PO DAILY [facility] Last Admin: 08/04/16 10:25 Dose: 1 tab Pregabalin (Lyrica -) 75 mg PO DAILY [facility] Last Admin: 08/04/16 10:20 Dose: 75 mg Sertraline HCl (Zoloft -) 50 mg PO DAILY [facility] Last Admin: 08/04/16 10:26 Dose: 50 mg Sevelamer Carbonate (Renvela -) 1,600 mg PO TIDCM [facility] Last Admin: 08/04/16 11:43 Dose: 1,600 mg Simethicone (Mylicon -) 80 mg PO Q4H PRN PRN Reason: GAS Last Admin: 08/03/16 14:13 Dose: 80 mg Warfarin Sodium (Coumadin Protocol) 1 each PO 1800 [facility] PRN Reason: Protocol Last Admin: 08/03/16 17:11 Dose: Not Given A/P 89 year old woman with PMhx of ESRD on HD (MWF), DM Type 2, CAD, Hypothyroidism , Anemia, Renal Osteodystrophy, Recent hospitalization for Influenza presents with clotted AVF. #Dialysis Access problem/Clotted AVF/ESRD on HD tolerated Hd yesterday with 2kg UF continue fluid restriction of 1.2L HD tomorrow with UF as tolerated #Erythema at AVG site likely related to hematoma formation Will give Vanco 1g IV empirically Check cultures with HD tomorrow Vascular Follow up #Anemia Will continue HILARIO with HD Yahir Cortez DO
[2016-08-04] MEDS ORDERED: VANCOMYCIN 1 GRAM (PRE-DOCKED) 250 ML IVPB ONE ×2 (13:05→15:00)
--- NOTE | 2016-08-04 16:59 | PN ---
Progress Note (short form) - Note Progress Note: POD#2 s/p Left HERO graft Pt with some tenderness today on the medial aspect of her elbow. As it was noted to be red. Vital Signs Period Temp Pulse Resp BP Sys/Caro Pulse Ox Last 24 Hr 97.7 F-98.4 F 84-93 16-18 110-121/49-61 96-99 PE: GEN: appears comfortable Left arm: dressing removed at elbow. Inc c/d/i with steri-strips, no evidence of bleeding. Good thrill auscultated. along the medial aspect there is soft tissue swelling and a non-blanchable area of bruising(purple to redish) CBC, BMP 03/23/17 06:20 03//17 10:25 INR, PTT INR 2.38 (0.82-1.09) H D /23/17 09:30 A/P : 89 yo female s/p Left HERO graft, POD#2 with swelling/bruising in medial elbow IV heparin now stopped, INR 2.4 Light dressing over elbow incision and arm elevated on pillow Vanco X 1 given by renal for erythema, will continue to monitor this area. H&H stable
[2016-08-04] MEDS: WARFARIN PROTOCOL PO SCH (17:37)
[2016-08-04] MEDS ORDERED: WARFARIN NA 5 MG TABLET (UD) PO SCH (18:00)
[2016-08-04] MEDS ORDERED: WARFARIN NA 1 MG TABLET (FP) PO ONE (18:00)
[2016-08-05] MEDS: LEVOTHYROXINE NA 100 MCG TABLET (FP) PO SCH (06:06)
[2016-08-05 08:22] LABS: MCH 30.4 pg (25.7-33.7); MCHC 31.4 g/dl (32.0-36.0); MEAN CELL VOLUME 96.9 fl (80-96); MEAN PLT VOLUME 9.5 fl (7.5-11.1); PLATELET COUNT 84 K/MM3 (134-434); RDW 17.3 % (11.6-15.6); WHITE BLOOD COUNT 5.8 K/mm3 (4.0-10.0)
[2016-08-05 08:54] LABS: CALCIUM 9.4 mg/dL (8.5-10.1)
[2016-08-05] MEDS: SEVELAMER CARBONATE 800 MG TAB (FP) PO SCH ×2 (08:58→12:00)
[2016-08-05 08:59] LABS: CREATININE 5.3 mg/dL (0.55-1.02); PHOSPHOROUS 2.5 mg/dL (2.5-4.9)
[2016-08-05 10:21] LABS: INR 3.38 (0.82-1.09); PROTHROMBIN TIME (PATIENT) 38.1 SEC (9.98-11.88)
[2016-08-05] MEDS: PREGABALIN 75 MG CAPSULE PO SCH (10:33)
[2016-08-05] MEDS: MIDODRINE HCL 5 MG TABLET PO SCH (10:34)
[2016-08-05] MEDS: MULTIVITAMINS (DAILY MVI) TABLET (FP) PO SCH (10:34)
[2016-08-05] MEDS: SERTRALINE HCL 50 MG TABLET (FP) PO SCH (10:34)
[2016-08-05] MEDS: ACETAMINOPHEN 325 MG TABLET (FP) PO PRN ×2 (10:34→20:07)
--- NOTE | 2016-08-05 11:01 | PN ---
Progress Note (short form) - Note Progress Note: Subjective Patient seen and examined in HD. Chart reviewed. Chief complain soreness at surgical site Denies cp or SOB Overall feels weak Objective VS: Last Vital Signs Temp Pulse Resp BP Pulse Ox 97.7 F 97 H 19 134/60 94 L 08/05/16 10:00 08/05/16 10:00 08/05/16 10:00 08/05/16 10:00 08/04/16 20:39 Labs: CBC, BMP 08/05/16 06:30 08/05/16 06:30 Problem List - Problems (1) AV fistula thrombosis Code(s): T82.868A - THROMBOSIS DUE TO VASCULAR PROSTH DEV/GRFT, INIT Qualifiers: Encounter type: initial encounter Qualified Code(s): T82.868A - Thrombosis due to vascular prosthetic devices, implants and grafts, initial encounter (2) ESRD on hemodialysis Code(s): N18.6 - END STAGE RENAL DISEASE Z99.2 - DEPENDENCE ON RENAL DIALYSIS (3) CAD (coronary artery disease) Code(s): I25.10 - ATHSCL HEART DISEASE OF [place] CORONARY ARTERY W/O ANG PCTRS Qualifiers: Coronary Disease-Associated Artery/Lesion type: [place] artery [place] vs. transplanted heart: [place] heart Associated angina: without angina Qualified Code(s): I25.10 - Atherosclerotic heart disease of [place] coronary artery without angina pectoris (4) Atrial flutter Code(s): I48.92 - UNSPECIFIED ATRIAL FLUTTER Qualifiers: Atrial flutter type: typical Qualified Code(s): I48.3 - Typical atrial flutter Physical Exam Constitutional: Yes: No Distress Cardiovascular: Yes: Pulse Irregular, Other (right chest wall permacath) Respiratory: Yes: Diminished Gastrointestinal: Yes: Normal Bowel Sounds, Soft. No: Distention, Tenderness Musculoskeletal: Yes: Other (left AVF+) Edema: Yes Edema: LLE: 1+, RLE: 1+ Assessment and Plan S/P left hero graft post op day number 3 Continue present care Hold Coumadin today Monitor for errythema Stool for occult positive H&H stable Will monitor If stable consider discharge tomorrow Documentation prepared by Jannette Pittman, acting as a medical customer service representative for Norma Oropeza MD.
--- NOTE | 2016-08-05 12:22 | PN ---
Progress Note (short form) - Note Progress Note: Renal Follow up for ESRD on HD Pt seen and examined during dialysis no acute complaints arm feels better BP stable, goal UF is 2L Vital Signs Temperature 97.7 F 08/05/16 10:00 Pulse Rate 97 H 08/05/16 10:00 Respiratory Rate 19 08/05/16 10:00 Blood Pressure 134/60 08/05/16 10:00 O2 Sat by Pulse Oximetry (%) 94 L 08/04/16 20:39 Intake & Output 08/02/16 08/03/16 08/04/16 08/05/16 23:59 23:59 23:59 23:59 Intake Total 100 660 214 Balance 100 660 214 Weight 141 lb 145 lb Gen: NAD, awake and alert CVS: RRR, + systolic murmur Lungs: CTA Abd: soft NT/ND Ext: 1+ edema, no clubbing or cyanosis CBC, BMP 08/05/16 06:30 08/05/16 06:30 Laboratory Tests 08/05/16 06:30 Calcium 9.4 Phosphorus 2.5 D Current Medications Acetaminophen (Tylenol -) 650 mg PO Q6H PRN PRN Reason: FEVER OR PAIN Last Admin: 08/05/16 10:34 Dose: 650 mg Epoetin [place] (Procrit -) 10,000 unit IVPUSH ONCE ONE Stop: 08/05/16 06:01 Hydromorphone HCl (Dilaudid Injection -) 1 mg IVPB Q4H PRN PRN Reason: PAIN Last Admin: 08/03/16 02:10 Dose: 1 mg Ipratropium [place] (Atrovent 0.02% Nebulizer -) 1 amp NEB QID PRN PRN Reason: SHORTNESS OF BREATH Levothyroxine Sodium (Synthroid -) 100 mcg PO DAILY@0700 [facility] Last Admin: 08/05/16 06:06 Dose: Not Given Metoprolol Succinate (Toprol Xl -) 25 mg PO SuTuThSa@1000 [facility] Last Admin: 08/04/16 10:25 Dose: 25 mg Midodrine (Proamatine -) 20 mg PO MoWeFr@10 [facility] Last Admin: 08/05/16 10:34 Dose: 20 mg Multivitamins/Minerals/Vitamin C (Tab-A-Vit -) 1 tab PO DAILY [facility] Last Admin: 08/05/16 10:34 Dose: 1 tab Pregabalin (Lyrica -) 75 mg PO DAILY [facility] Last Admin: 08/05/16 10:33 Dose: 75 mg Sertraline HCl (Zoloft -) 50 mg PO DAILY [facility] Last Admin: 08/05/16 10:34 Dose: 50 mg Sevelamer Carbonate (Renvela -) 1,600 mg PO TIDCM [facility] Last Admin: 08/05/16 08:58 Dose: 1,600 mg Simethicone (Mylicon -) 80 mg PO Q4H PRN PRN Reason: GAS Last Admin: 08/03/16 14:13 Dose: 80 mg Warfarin Sodium (Coumadin Protocol) 1 each PO 1800 [facility] PRN Reason: Protocol Last Admin: 08/04/16 17:37 Dose: Not Given A/P 89 year old woman with PMhx of ESRD on HD (MWF), DM Type 2, CAD, Hypothyroidism , Anemia, Renal Osteodystrophy, Recent hospitalization for Influenza presents with clotted AVF. #Dialysis Access problem/Clotted AVF/ESRD on HD Tolerating dialysis today via tunneled HD catheter UF goal is 2L, will use low temp, PRN albumin to maintain BP AVG in place, will follow up with vascular as to when it can be used #Erythema at AVG site s/p Vanco and blood cultures yesterday arm appears better, seen by Vascular PA -> likely hematoma will hold off any further Abx and follow up blood culture #Anemia Will continue HILARIO with HD Yahir Cortez DO
[2016-08-05] MEDS ORDERED: EPOETIN ALFA 10,000 UNIT/1 ML VIAL IVPUSH ONE (13:30)
--- NOTE | 2016-08-05 14:38 | PN ---
Progress Note, Physician History of Present Illness: Denies chest pain, dyspnea, palpitations, near or true syncope, orthopnea, PND or LE edema. - Current Medication List Current Medications: Active Medications Acetaminophen (Tylenol -) 650 mg PO Q6H PRN PRN Reason: FEVER OR PAIN Last Admin: 08/05/16 10:34 Dose: 650 mg Hydromorphone HCl (Dilaudid Injection -) 1 mg IVPB Q4H PRN PRN Reason: PAIN Last Admin: 08/03/16 02:10 Dose: 1 mg Ipratropium [place] (Atrovent 0.02% Nebulizer -) 1 amp NEB QID PRN PRN Reason: SHORTNESS OF BREATH Levothyroxine Sodium (Synthroid -) 100 mcg PO DAILY@0700 [facility] Last Admin: 08/05/16 06:06 Dose: Not Given Metoprolol Succinate (Toprol Xl -) 25 mg PO SuTuThSa@1000 [facility] Last Admin: 08/04/16 10:25 Dose: 25 mg Midodrine (Proamatine -) 20 mg PO MoWeFr@10 [facility] Last Admin: 08/05/16 10:34 Dose: 20 mg Multivitamins/Minerals/Vitamin C (Tab-A-Vit -) 1 tab PO DAILY [facility] Last Admin: 08/05/16 10:34 Dose: 1 tab Pregabalin (Lyrica -) 75 mg PO DAILY [facility] Last Admin: 08/05/16 10:33 Dose: 75 mg Sertraline HCl (Zoloft -) 50 mg PO DAILY [facility] Last Admin: 08/05/16 10:34 Dose: 50 mg Simethicone (Mylicon -) 80 mg PO Q4H PRN PRN Reason: GAS Last Admin: 08/03/16 14:13 Dose: 80 mg Warfarin Sodium (Coumadin Protocol) 1 each PO 1800 [facility] PRN Reason: Protocol Last Admin: 08/04/16 17:37 Dose: Not Given - Objective Vital Signs: Vital Signs Temperature 98.8 F 08/05/16 11:35 Pulse Rate 61 08/05/16 14:10 Respiratory Rate 18 08/05/16 14:10 Blood Pressure 121/53 08/05/16 14:10 O2 Sat by Pulse Oximetry (%) 94 L 08/04/16 20:39 Constitutional: Yes: No Distress, Calm Neck: Yes: Supple Cardiovascular: Yes: Regular Rate and Rhythm, Murmur Respiratory: Yes: Regular, Diminished Gastrointestinal: Yes: Normal Bowel Sounds, Hemorrhoids Edema: Yes Edema: LLE: Trace, RLE: Trace Labs: CBC, BMP 08/05/16 06:30 08/05/16 06:30 INR, PTT INR 3.38 (0.82-1.09) H D 08/05/16 06:30 Problem List - Problems (1) AV fistula thrombosis Code(s): T82.868A - THROMBOSIS DUE TO VASCULAR PROSTH DEV/GRFT, INIT Qualifiers: Encounter type: initial encounter Qualified Code(s): T82.868A - Thrombosis due to vascular prosthetic devices, implants and grafts, initial encounter (2) Atrial flutter Code(s): I48.92 - UNSPECIFIED ATRIAL FLUTTER Qualifiers: Atrial flutter type: typical Qualified Code(s): I48.3 - Typical atrial flutter (3) ESRD on hemodialysis Code(s): N18.6 - END STAGE RENAL DISEASE Z99.2 - DEPENDENCE ON RENAL DIALYSIS (4) Anemia Code(s): D64.9 - ANEMIA, UNSPECIFIED Qualifiers: Anemia type: unspecified type Qualified Code(s): D64.9 - Anemia, unspecified (5) Aortic stenosis Code(s): I35.0 - NONRHEUMATIC AORTIC (VALVE) STENOSIS Qualifiers: Cardiac valve disease etiology: nonrheumatic Qualified Code(s): I35.0 - Nonrheumatic aortic (valve) stenosis (6) CAD (coronary artery disease) Code(s): I25.10 - ATHSCL HEART DISEASE OF [place] CORONARY ARTERY W/O ANG PCTRS Qualifiers: Coronary Disease-Associated Artery/Lesion type: [place] artery [place] vs. transplanted heart: [place] heart Associated angina: without angina Qualified Code(s): I25.10 - Atherosclerotic heart disease of [place] coronary artery without angina pectoris (7) Coronary arteriosclerosis in [place] artery Code(s): I25.10 - ATHSCL HEART DISEASE OF [place] CORONARY ARTERY W/O ANG PCTRS (8) Diabetes Code(s): E11.9 - TYPE 2 DIABETES MELLITUS WITHOUT COMPLICATIONS Qualifiers: Diabetes mellitus type: type 2 Diabetes mellitus complication status: without complication Diabetes mellitus intermediate insulin use: without intermediate use Qualified Code(s): E11.9 - Type 2 diabetes mellitus without complications (9) ESRD on dialysis Code(s): N18.6 - END STAGE RENAL DISEASE Z99.2 - DEPENDENCE ON RENAL DIALYSIS (10) History of percutaneous coronary intervention Code(s): Z98.89 - OTHER SPECIFIED POSTPROCEDURAL STATES * DO NOT USE * (11) Hyperlipidemia Code(s): E78.5 - HYPERLIPIDEMIA, UNSPECIFIED Qualifiers: Hyperlipidemia type: pure hypercholesterolemia Qualified Code(s): E78.00 - Pure hypercholesterolemia, unspecified; E78.0 - Pure hypercholesterolemia (12) Hypothyroidism Code(s): E03.9 - HYPOTHYROIDISM, UNSPECIFIED Qualifiers: Hypothyroidism type: unspecified Qualified Code(s): E03.9 - Hypothyroidism, unspecified (13) Labile essential hypertension Code(s): I10 - ESSENTIAL (PRIMARY) HYPERTENSION (14) Single implantable cardioverter-defibrillator (ICD) in situ Code(s): Z95.810 - PRESENCE OF AUTOMATIC (IMPLANTABLE) CARDIAC DEFIBRILLATOR (15) Subendocardial ischemia Code(s): I24.8 - OTHER FORMS OF ACUTE ISCHEMIC HEART DISEASE (16) Systolic dysfunction without heart failure Code(s): I51.9 - HEART DISEASE, UNSPECIFIED (17) Troponin level elevated Code(s): R79.89 - OTHER SPECIFIED ABNORMAL FINDINGS OF BLOOD CHEMISTRY Assessment/Plan 01/14/2016 Mildly dilated and severely decreased LV fxn, severe TR, mild , AR, DC 1. Newly diagnosed atypical atrial flutter, [id number] score of 5 with supratherapeutic INR 2. LV systolic dysfunction with chronic class I-II NYHA classification LV failure, compensated 3. CAD post PCI/stent, Elevated Troponin I related to sub-endocardial ischemia/ demand ischemia, angina pectoris 4. Post prophylactic ICD implant 5. DM 6. Hypercholesterolemia 7. Mild aortic stenosis and aortic regurgitation 8. ESRD on HD with thrombosed LUE AVF post placement of HeRO graft left arm and thrombectomy brachial artery 9. Hypothyroidism 10 .Anemia and thrombcytopenia 11. Influenza A post Tamiflu 12. Thrombocytopenia PLAN: 1. Continue Coumadin as per INR 2. Continue Toprol XL 25 qd 3. Continue Midodrine 20 qd 4. HD as per renal service 5. If the above noted atrial arrhythmia is persistent recommend synchronized cardioversion in 4-6 weeks post adequate A/C, discussed in detail with the patient
--- NOTE | 2016-08-05 18:08 | PN ---
Progress Note (short form) - Note Progress Note: No c/o Wounds clean and dry. Arm swelling improved. I will follow in office. Problem List - Problems (1) ESRD on hemodialysis Code(s): N18.6 - END STAGE RENAL DISEASE Z99.2 - DEPENDENCE ON RENAL DIALYSIS
[2016-08-06] MEDS: LEVOTHYROXINE NA 100 MCG TABLET (FP) PO SCH (06:03)
[2016-08-06 07:30] LABS: BASOPHIL 0.6 % (0-2.0); EOSINOPHIL 0.3 % (0-4.5); MCH 30.2 pg (25.7-33.7); MCHC 31.6 g/dl (32.0-36.0); MEAN CELL VOLUME 95.6 fl (80-96); MEAN PLT VOLUME 9.4 fl (7.5-11.1); NEUTROPHILS 80.3 % (42.8-82.8); PLATELET COUNT 88 K/MM3 (134-434); WHITE BLOOD COUNT 5.4 K/mm3 (4.0-10.0)
[2016-08-06] MEDS: ACETAMINOPHEN 325 MG TABLET (FP) PO PRN (07:33)
[2016-08-06 08:01] LABS: INR 2.29 (0.82-1.09); PROTHROMBIN TIME (PATIENT) 25.6 SEC (9.98-11.88)
--- NOTE | 2016-08-06 10:17 | OP ---
DATE OF OPERATION: 08/01/2016 SURGEON: Dino Munguia MD AIR SAMPLING AND MONITORING: JUANA Cintron PROCEDURE: Placement of HeRO graft left arm with thrombectomy of brachial artery. PREOPERATIVE DIAGNOSIS: End-stage renal disease on renal dialysis with thromboses atrioventricular fistula of left arm. POSTOPERATIVE DIAGNOSIS: End-stage renal disease on renal dialysis with thromboses atrioventricular fistula of left arm. ANESTHESIA: General. ANESTHESIOLOGIST: John Lowry MD OPERATIVE FINDINGS: The subclavian vein on the left side was patent. 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 The distalmost portion of the fistula was usable for anastomosis after thrombectomy. OPERATIVE PROCEDURE: Following routine patient identification with site and side verification, general anesthesia was induced. The neck, chest, and left arm were prepped with ChloraPrep. Using real time duplex imaging, the left subclavian vein was identified. A stent impinging on the lumen of the vein was seen coming from the cephalic vein. A micropuncture needle was directed under ultrasound and fluoroscopic guidance into the subclavian vein medial to the stent. A fine wire was passed proximally into the innominate vein, and the needle was exchanged for a 5-Swiss catheter. A J-tip wire was then advanced through the catheter, and a 7-Swiss sheath was placed. An angle-tip wire and catheter were then advanced into the right atrial and then into the informed verbal consent. The catheter was advanced to the IVC, and the wire was exchanged for an Amplatz wire. Attention was then turned to the left arm. An incision was made over the distal portion of the AV fistula approximately 2 cm from the arteriovenous anastomosis. There was a pulse present in the fistula at this level. The subcutaneous tissues were divided using cautery for hemostasis. The vein was mobilized and secured with Vessel Loops. A 2nd incision was made in the deltopectoral groove on the upper portion of the left arm. A clamp was passed from this incision to the chest wound to make a subcutaneous tunnel. A straight metal tunneler was passed from the distal arm incision to the shoulder incision. The 7-Swiss sheath was removed and tracked around the wire was dilated up to a 20-Swiss sheath was placed. The HeRO catheter was flushed with heparin saline solution and passed over the wire with an introducer into the right atrium. The introducer was peeled away, and the catheter tip was adjusted to be in the midportion of the atrium. Blood was aspirated from the end of the catheter freely, and the catheter was filled with heparin solution and was occluded with a plastic clamp. The catheter was then trimmed and passed through the tunnel to lie in the shoulder incision. Care was taken not to twist it for allow any management of the tip. The HeRO graft was then passed through the metal tunneler from the shoulder down to the distal arm incision. The HeRO adapter was positioned in the pocket created in the deltopectoral groove. The catheter was then trimmed to the appropriate length and attached to the graft with the adapter securely. The graft was laid in its bed in the tunnel with care not to twist it, and the tip was viewed again in the right atrium and had not moved. The graft was filled with heparin solution and was occluded with a vas clamp. The vein fistula was then occluded with vascular clamps. An incision was made on the superficial aspect of the vein. Clot from within the vein segment was removed with Aby catheter and clamped until there was free fluid of arterial blood. The vein was filled with heparin and was occluded with a vascular clamp proximally. The distal vein segment was ligated. The end of the graft was then beveled and anastomosed to the side of the vein with running suture of 6-0 Prolene. Prior to completion of the suture line, vessels were allowed to flush and back bleed, and the graft was, again, filled with heparin solution. The suture line was completed, and all vessels were released. Bleeding from the suture line was controlled with Surgicel. A butterfly needle was placed in the graft just proximal to the anastomosis, and angiography was performed to confirm good flow into the right atrium. The needle was removed, and bleeding was controlled with thrombin-soaked Gelfoam. When hemostasis was achieved, all wounds were irrigated and closed with interrupted suture of 3-0 Vicryl and subcuticular suture of 4-0 Biosyn. Sterile dressings were applied, and the patient was taken to the recovery room in stable condition. Kendrick [id number]
[2016-08-06] MEDS: MULTIVITAMINS (DAILY MVI) TABLET (FP) PO SCH (10:20)
[2016-08-06] MEDS: SERTRALINE HCL 50 MG TABLET (FP) PO SCH (10:20)
[2016-08-06] MEDS: PREGABALIN 75 MG CAPSULE PO SCH (10:20)
[2016-08-06] MEDS: METOPROLOL SUCCINATE 25 MG TAB.SR.24H (FP) PO SCH (10:22)
--- NOTE | 2016-08-06 12:38 | PN ---
Progress Note (short form) - Note Progress Note: Renal Follow up for ESRD on HD Pt seen and examined at the bedside no acute complaints no sob or chest pain no pain in arm, swelling improved s/p dialysis yesterday Vital Signs Temperature 98.6 F 08/06/16 10:18 Pulse Rate 100 H 08/06/16 10:18 Respiratory Rate 19 08/06/16 10:18 Blood Pressure 115/54 08/06/16 10:18 O2 Sat by Pulse Oximetry (%) 95 08/06/16 09:50 Intake & Output 08/03/16 08/04/16 08/05/16 08/06/16 23:59 23:59 23:59 23:59 Intake Total 660 214 210 Balance 660 214 210 Weight 141 lb 145 lb 140 lb 4 oz Gen: NAD, awake and alert CVS: RRR, + systolic murmur Lungs: CTA Abd: soft NT/ND Ext: 1+ edema in LE CBC, BMP 08/06/16 06:05 08/05/16 06:30 Laboratory Tests 08/05/16 06:30 Calcium 9.4 Phosphorus 2.5 D Current Medications Acetaminophen (Tylenol -) 650 mg PO Q6H PRN PRN Reason: FEVER OR PAIN Last Admin: 08/06/16 07:33 Dose: 650 mg Hydromorphone HCl (Dilaudid Injection -) 1 mg IVPB Q4H PRN PRN Reason: PAIN Last Admin: 08/03/16 02:10 Dose: 1 mg Ipratropium [place] (Atrovent 0.02% Nebulizer -) 1 amp NEB QID PRN PRN Reason: SHORTNESS OF BREATH Levothyroxine Sodium (Synthroid -) 100 mcg PO DAILY@0700 [facility] Last Admin: 08/06/16 06:03 Dose: 100 mcg Metoprolol Succinate (Toprol Xl -) 25 mg PO SuTuThSa@1000 [facility] Last Admin: 08/06/16 10:22 Dose: 25 mg Midodrine (Proamatine -) 20 mg PO MoWeFr@10 [facility] Last Admin: 08/05/16 10:34 Dose: 20 mg Multivitamins/Minerals/Vitamin C (Tab-A-Vit -) 1 tab PO DAILY [facility] Last Admin: 08/06/16 10:20 Dose: 1 tab Pregabalin (Lyrica -) 75 mg PO DAILY [facility] Last Admin: 08/06/16 10:20 Dose: 75 mg Sertraline HCl (Zoloft -) 50 mg PO DAILY [facility] Last Admin: 08/06/16 10:20 Dose: 50 mg Sevelamer Carbonate (Renvela -) 800 mg PO TIDCM [facility] Simethicone (Mylicon -) 80 mg PO Q4H PRN PRN Reason: GAS Last Admin: 08/03/16 14:13 Dose: 80 mg Warfarin Sodium (Coumadin Protocol) 1 each PO 1800 [facility] PRN Reason: Protocol Last Admin: 08/04/16 17:37 Dose: Not Given A/P 89 year old woman with PMhx of ESRD on HD (MWF), DM Type 2, CAD, Hypothyroidism , Anemia, Renal Osteodystrophy, Recent hospitalization for Influenza presents with clotted AVF. #Dialysis Access problem/Clotted AVF/ESRD on HD No acute indication for dialysis today AVG with good flow, swelling improving Follow up with Vascular as outpatient #Erythema at AVG site Cultures negative NO further Abx warm compress to area #Anemia Will continue HILARIO with HD #Renal Osteodystrphy Reduced Renvela to 1 tab TID with meals as phos is 2.5 Yahir Cortez DO
--- NOTE | 2016-08-06 13:03 | DS ---
Physical Examination Vital Signs: Vital Signs Temperature 98.6 F 08/06/16 10:18 Pulse Rate 100 H 08/06/16 10:18 Respiratory Rate 19 08/06/16 10:18 Blood Pressure 115/54 08/06/16 10:18 O2 Sat by Pulse Oximetry (%) 95 08/06/16 09:50 Findings/Remarks: feels well. no complains Constitutional: Yes: No Distress, Calm Eyes: Yes: Conjunctiva Clear Neck: Yes: Supple Cardiovascular: Yes: Pulse Irregular Respiratory: Yes: CTA Bilaterally Gastrointestinal: Yes: Normal Bowel Sounds, Soft Edema: LLE: 1+, RLE: 1+ Neurological: Yes: Alert Labs: CBC, BMP 08/06/16 06:05 08/05/16 06:30 Discharge Summary Reason For Visit: ESRD HEMODIALYSIS AV FISTULA Current Active Problems AV fistula thrombosis (Acute) Atrial flutter (Acute) ESRD on hemodialysis (Acute) Fall (Acute) Hospital Course: The patient is a 89 year old female with a significant past medical history of CHF, HTN, HLD, ESRD (on HD MWF), who is sent to the ED by Dr. Munguia for a Dialysis AV shunt problem located on the left arm. Pt undErwent HERO Graft/ thrombectomy doing well Pt also noted to have atrial flutter cardiology consulted on a/c now- coumadin pt to follow with cardiology in 4-6 weeks for possible cardioversion . monitor inr Clinically stable for d/c to str Meds reconcilled Discussed with nursing staff. Condition: Stable - Instructions Referrals: Aung Mondragon MD [Primary Care Provider] - Disposition: ASSISTED FACILITY - Home Medications Comprehensive Discharge Medication List: Ambulatory Orders Levothyroxine [Synthroid -] 100 mcg PO DAILY 10/11/12 Pregabalin [Lyrica] 75 mg PO DAILY #0 capsule 02/27/13 Metoprolol Succinate [Toprol XL -] 50 mg PO ASDIR 03/09/15 Acetaminophen [Tylenol .Regular Strength -] 650 mg PO Q6H PRN #0 tablet Multivitamin/Iron/Folic Acid [Daily Vitamin Formula-Iron Tab] 1 each PO DAILY Simethicone [Mylicon -] 80 mg PO Q4H PRN #60 tab.chew 03/23/16 Sertraline HCl [Zoloft -] 50 mg PO DAILY 07/12/16 Ipratropium 0.02% Nebulizer [Atrovent 0.02% Nebulizer -] 1 amp NEB QID PRN 07/30 Midodrine HCl [Proamatine -] 20 mg PO MoWeFr@10 tablet 08/06/16 Sevelamer Carbonate [Renvela -] 800 mg PO TIDCM tab 08/06/16 Warfarin Sodium [Coumadin] 2 mg PO DAILY #30 tablet 08/07/16
[2016-08-06 13:16] VITALS: BP 105/55; PULSE 94; TEMP 98.2
--- NOTE | 2016-08-06 13:36 | PN ---
Progress Note, Physician Chief Complaint: Events noted Not in distress Being discharged today History of Present Illness: Patient was seen and examined. Awake and alert. Chart was reviewed Atrial flutter rate controlled on Coumadin - tolerating therapy - Current Medication List Current Medications: Active Medications Acetaminophen (Tylenol -) 650 mg PO Q6H PRN PRN Reason: FEVER OR PAIN Last Admin: 08/06/16 07:33 Dose: 650 mg Hydromorphone HCl (Dilaudid Injection -) 1 mg IVPB Q4H PRN PRN Reason: PAIN Last Admin: 08/03/16 02:10 Dose: 1 mg Ipratropium [place] (Atrovent 0.02% Nebulizer -) 1 amp NEB QID PRN PRN Reason: SHORTNESS OF BREATH Levothyroxine Sodium (Synthroid -) 100 mcg PO DAILY@0700 [facility] Last Admin: 08/06/16 06:03 Dose: 100 mcg Metoprolol Succinate (Toprol Xl -) 25 mg PO SuTuThSa@1000 [facility] Last Admin: 08/06/16 10:22 Dose: 25 mg Midodrine (Proamatine -) 20 mg PO MoWeFr@10 [facility] Last Admin: 08/05/16 10:34 Dose: 20 mg Multivitamins/Minerals/Vitamin C (Tab-A-Vit -) 1 tab PO DAILY [facility] Last Admin: 08/06/16 10:20 Dose: 1 tab Pregabalin (Lyrica -) 75 mg PO DAILY [facility] Last Admin: 08/06/16 10:20 Dose: 75 mg Sertraline HCl (Zoloft -) 50 mg PO DAILY [facility] Last Admin: 08/06/16 10:20 Dose: 50 mg Sevelamer Carbonate (Renvela -) 800 mg PO TIDCM [facility] Simethicone (Mylicon -) 80 mg PO Q4H PRN PRN Reason: GAS Last Admin: 08/03/16 14:13 Dose: 80 mg Warfarin Sodium (Coumadin Protocol) 1 each PO 1800 [facility] PRN Reason: Protocol Last Admin: 08/04/16 17:37 Dose: Not Given Warfarin Sodium (Coumadin -) 2 mg PO NOW ONE Stop: 08/06/16 12:57 - Objective Vital Signs: Vital Signs Temperature 98.2 F 08/06/16 13:16 Pulse Rate 94 H 08/06/16 13:16 Respiratory Rate 20 08/06/16 13:16 Blood Pressure 105/55 08/06/16 13:16 O2 Sat by Pulse Oximetry (%) 95 08/06/16 09:50 Neck: Yes: Supple Cardiovascular: Yes: Pulse Irregular, S1, S2 Respiratory: Yes: CTA Bilaterally Gastrointestinal: Yes: Normal Bowel Sounds, Soft. No: Tenderness Edema: Yes Edema: LLE: 1+, RLE: 1+ Labs: CBC, BMP 08/06/16 06:05 08/05/16 06:30 INR, PTT INR 2.29 (0.82-1.09) H D 08/06/16 06:05 Problem List - Problems (1) AV fistula thrombosis Code(s): T82.868A - THROMBOSIS DUE TO VASCULAR PROSTH DEV/GRFT, INIT Qualifiers: Encounter type: initial encounter Qualified Code(s): T82.868A - Thrombosis due to vascular prosthetic devices, implants and grafts, initial encounter (2) Atrial flutter Code(s): I48.92 - UNSPECIFIED ATRIAL FLUTTER Qualifiers: Atrial flutter type: typical Qualified Code(s): I48.3 - Typical atrial flutter (3) ESRD on hemodialysis Code(s): N18.6 - END STAGE RENAL DISEASE Z99.2 - DEPENDENCE ON RENAL DIALYSIS (4) Acute on chronic systolic and diastolic heart failure, NYHA class 3 Code(s): I50.43 - ACUTE ON CHRONIC COMBINED SYSTOLIC AND DIASTOLIC HRT FAIL (5) Aortic stenosis Code(s): I35.0 - NONRHEUMATIC AORTIC (VALVE) STENOSIS Qualifiers: Cardiac valve disease etiology: nonrheumatic Qualified Code(s): I35.0 - Nonrheumatic aortic (valve) stenosis (6) CAD (coronary artery disease) Code(s): I25.10 - ATHSCL HEART DISEASE OF [place] CORONARY ARTERY W/O ANG PCTRS Qualifiers: Coronary Disease-Associated Artery/Lesion type: [place] artery [place] vs. transplanted heart: [place] heart Associated angina: without angina Qualified Code(s): I25.10 - Atherosclerotic heart disease of [place] coronary artery without angina pectoris (7) Diabetes Code(s): E11.9 - TYPE 2 DIABETES MELLITUS WITHOUT COMPLICATIONS Qualifiers: Diabetes mellitus type: type 2 Diabetes mellitus complication status: without complication Diabetes mellitus watermaster insulin use: without jail use Qualified Code(s): E11.9 - Type 2 diabetes mellitus without complications (8) HTN (hypertension) Code(s): I10 - ESSENTIAL (PRIMARY) HYPERTENSION Qualifiers: Hypertension type: renovascular hypertension Qualified Code(s): I15.0 - Renovascular hypertension (9) History of percutaneous coronary intervention Code(s): Z98.89 - OTHER SPECIFIED POSTPROCEDURAL STATES * DO NOT USE * (10) Hyperlipidemia Code(s): E78.5 - HYPERLIPIDEMIA, UNSPECIFIED Qualifiers: Hyperlipidemia type: pure hypercholesterolemia Qualified Code(s): E78.00 - Pure hypercholesterolemia, unspecified; E78.0 - Pure hypercholesterolemia (11) Hypothyroidism Code(s): E03.9 - HYPOTHYROIDISM, UNSPECIFIED Qualifiers: Hypothyroidism type: unspecified Qualified Code(s): E03.9 - Hypothyroidism, unspecified (12) Influenza A Code(s): J10.1 - FLU DUE TO OTH IDENT INFLUENZA VIRUS W OTH RESP MANIFEST (13) Single implantable cardioverter-defibrillator (ICD) in situ Code(s): Z95.810 - PRESENCE OF AUTOMATIC (IMPLANTABLE) CARDIAC DEFIBRILLATOR (14) Troponin level elevated Code(s): R79.89 - OTHER SPECIFIED ABNORMAL FINDINGS OF BLOOD CHEMISTRY Assessment/Plan 1. Newly diagnosed atypical atrial flutter - persistent 2. LV systolic dysfunction with history of failure, currently compensated S/P ICD 3. Elevated troponin - subendocardial ischemia - resolved 4. CAD, s/p PCI/stent, angina 5. ESRD on HD with thrombosed LUE AVF post permacath placement and planned for LUE HeRo graft 6. Type 2 DM 7. Hypercholesterolemia 8. Mild aortic stenosis and aortic regurgitation 9. Anemia and thrombcytopenia 10. Hypothyroidism 11. Influenza A post Tamiflu 12. Hyponatremia PLAN: 1. Continue Coumadin as per INR 2.0-3.0 and consider synchronized cardioversion (can be done through the device) in 4-6 weeks of adequate anticoagulation. 2. Continue Metoprolol ER as directed and Midodrine as tolerated 3. ICD interrogation as outpatient 4. HD as per renal service Follow up in office Len Guevara MD
[2016-08-06] MEDS ORDERED: WARFARIN NA 2 MG TABLET (UD) PO ONE (14:30)
[2016-08-06] MEDS ORDERED: SEVELAMER CARBONATE 800 MG TAB (FP) PO SCH (17:30)
== END 2016-08-06 14:56 | DRG 252 ==
LOC: JER 08:17 → JERBED 09:28 → J4S 15:20
PROVIDERS: ADMIT Internal Medicine; ATTEND Internal Medicine
PROC: B5081ZZ Plain Radiography of Superior Vena Cava using Low Osmolar Contrast (ICD-10-PCS; 2016-07-30)
PROC: B50 Imaging, Veins, Plain Radiography (ICD-10-PCS; 2016-07-30)
PROC: 5A1D60Z (ICD-10-PCS; 2016-07-30)
PROC: 05H533Z Insertion of Infusion Device into Right Subclavian Vein, Percutaneous Approach (ICD-10-PCS; principal; 2016-07-30 11:00)
PROC: 03C83ZZ Extirpation of Matter from Left Brachial Artery, Percutaneous Approach (ICD-10-PCS; 2016-08-01)
PROC: 03180JD Bypass Left Brachial Artery to Upper Arm Vein with Synthetic Substitute, Open Approach (ICD-10-PCS; 2016-08-01)
DX: T82.868A Thrombosis due to vascular prosthetic devices, implants and grafts, initial encounter (principal); N18.6 End stage renal disease; E87.1 Hypo-osmolality and hyponatremia; I48.92 Unspecified atrial flutter; I13.2 Hypertensive heart and chronic kidney disease with heart failure and with stage 5 chronic kidney disease, or end stage renal disease; I50.32 Chronic diastolic (congestive) heart failure; Y83.8 Other surgical procedures as the cause of abnormal reaction of the patient, or of later complication, without mention of misadventure at the time of the procedure; E03.9 Hypothyroidism, unspecified; D64.9 Anemia, unspecified; K21.9 Gastro-esophageal reflux disease without esophagitis; K27.9 Peptic ulcer, site unspecified, unspecified as acute or chronic, without hemorrhage or perforation; I25.10 Atherosclerotic heart disease of native coronary artery without angina pectoris; D69.6 Thrombocytopenia, unspecified; E78.5 Hyperlipidemia, unspecified; K59.09 Other constipation; G62.89 Other specified polyneuropathies; M19.90 Unspecified osteoarthritis, unspecified site; K29.60 Other gastritis without bleeding; E11.22 Type 2 diabetes mellitus with diabetic chronic kidney disease; Z95.5 Presence of coronary angioplasty implant and graft; Z95.810 Presence of automatic (implantable) cardiac defibrillator; Z99.2 Dependence on renal dialysis
CPT/HCPCS: 36415; 71010-TC; 76000-TC; 76001-TC; 80048; 80053; 82272; 82550; 84100; 84443; 84484; 85025; 85027; 85610; 85730; 86850; 86900; 86901; 87040; 93005; 93010; 94760; 97116-GP; 97161-GP; 99284-25; J0885; J1644

== ENCOUNTER 2016-09-14 19:36 | Emergency (ER) | payer OTHER ==
[2016-09-14 20:15] VITALS: BP 118/53; PULSE 73; TEMP 97.8; BMI 27.3
--- NOTE | 2016-09-14 22:22 | PDOC ---
History of Present Illness - General History Source: Patient Exam Limitations: No Limitations - History of Present Illness Initial Comments: 09/14/16 22:40 The patient is a 89 year old female with significant past medical history of CAD , s/p stent, CHF, hypertension, hyperlipemia, diabetes, peripheral neuropathy, ESRD (on HD MWF), hypothyroidism, gerd, anemia and osteoarthritis who presents to the ED sent from dialysis center for low blood pressure. Patient reports she was in her usual state of health and prior to going to her dialysis center she felt dizzy. States having 1.5 hours of her dialysis session because her blood was low and thus sent to the ER. Denies LOC or changes in vision. Denies diaphoresis, lightheadedness, SOB, chest pain, jaw pain, shoulder pain, arm pain , nausea or vomiting. The patient denies fever, chills, cough, abdominal pain, and diarrhea. Allergies: codeine, oxycodone HCl Social History: No alcohol, tobacco, or drug use reported. Past Surgical History: AICD, AV Fistula/Graft, Cholecystectomy, Stent PCP: Dr. Aung Mondragon <Alana Miller - Last Filed: 09/15/16 00:23> - General History Source: Patient <Jarred Woodward - Last Filed: 09/15/16 00:52> - General Chief Complaint: Lightheaded Stated Complaint: PCP SENT/DIZZINESS Time Seen by Provider: 09/14/16 22:21 Past History <Alana Miller - Last Filed: 09/15/16 00:23> - Past Medical History Anemia: No Cardiac Disorders: Yes (STENT, DIFIBRILLATOR) CHF: Yes Diabetes: Yes Dialysis: Yes (m,w,f) GI Disorders: Yes (REFLUX) Disorders: Yes (esrd x 5y, low BP @ HD) HTN: Yes Hypercholesterolemia: Yes Suicide Attempt (Hx): No Thyroid Disease: Yes (HYPOTHYROID) - Surgical History Abdominal Surgery: Yes Cardiac Surgery: Yes (pacemaker-stent) - Immunization History Immunization Up to Date: Yes - Psycho/Social/Smoking Cessation Hx Anxiety: No Suicidal Ideation: No Smoking Status: No Smoking History: Never smoked Years of Tobacco Use: 50 Have you smoked in the past 12 months: No Number of Cigarettes Smoked Daily: 0 If you are a former smoker, when did you quit?: 25 years Hx Alcohol Use: No Drug/Substance Use Hx: No Substance Use Type: None Hx Substance Use Treatment: No <Jarred Woodward - Last Filed: 09/15/16 00:52> - Past Medical History Allergies/Adverse Reactions: Allergies Allergy/AdvReac Type Severity Reaction Status Date / Time codeine [Codeine] Allergy Mild Itching Verified 09/14/16 20:09 oxycodone HCl [From Percocet] Allergy Verified 09/14/16 20:09 Home Medications: Ambulatory Orders Levothyroxine [Synthroid -] 100 mcg PO DAILY 10/11/12 Pregabalin [Lyrica] 75 mg PO DAILY #0 capsule 02/27/13 Metoprolol Succinate [Toprol XL -] 50 mg PO ASDIR 03/09/15 Acetaminophen [Tylenol .Regular Strength -] 650 mg PO Q6H PRN #0 tablet Multivitamin/Iron/Folic Acid [Daily Vitamin Formula-Iron Tab] 1 each PO DAILY Simethicone [Mylicon -] 80 mg PO Q4H PRN #60 tab.chew 03/23/16 Sertraline HCl [Zoloft -] 50 mg PO DAILY 07/12/16 Ipratropium 0.02% Nebulizer [Atrovent 0.02% Nebulizer -] 1 amp NEB QID PRN 07/30 Midodrine HCl [Proamatine -] 20 mg PO MoWeFr@10 tablet 08/06/16 Sevelamer Carbonate [Renvela -] 800 mg PO TIDCM tab 08/06/16 Warfarin Sodium [Coumadin] 2 mg PO DAILY #30 tablet 08/07/16 Amox-Tr/K Cl [Augmentin 500Mg Tablet] 1 tab PO BID #14 tablet 09/15/16 Review of Systems - Review of Systems Able to Perform ROS?: Yes Comments:: 09/14/16 22:40 CONSTITUTIONAL: Absent: fever, no chills, no fatigue EYES: Absent: visual changes ENT: Absent: ear pain, no sore throat CARDIOVASCULAR: +low blood pressure Absent: chest pain, no palpitations RESPIRATORY: Absent: cough, no SOB GI: Absent: abdominal pain, no nausea, no vomiting, no constipation, no diarrhea GENITOURINARY: Absent: dysuria, no frequency, no hematuria MUSCULOSKELETAL: Absent: back pain, no arthralgia, no myalgia SKIN: Absent: rash NEURO: +dizziness Absent: headache <AngelaAlana - Last Filed: 09/15/16 00:23> *Physical Exam - Vital Signs Last Vital Signs Temp Pulse Resp BP Pulse Ox 97.8 F 73 22 118/53 99 09/14/16 20:13 09/14/16 20:13 09/14/16 20:13 09/14/16 20:13 09/14/16 20:13 - Physical Exam Comments: 09/14/16 22:40 GENERAL: Well-appearing, well-nourished. No apparent distress. HEENT: Normocephalic, atraumatic. PERRL, EOM intact. CARDIOVASCULAR: Normal S1, S2. Regular rate and rhythm. PULMONARY: Clear to auscultation bilaterally. ABDOMEN: Soft, non-distended, non-tender. EXTREMITIES: Normal ROM in all four extremities. No gross deformities. Left AV fistula, + bruit and thrills SKIN: Warm, dry. No rash NEUROLOGICAL: No focal neurological deficits. <AngelaAlana - Last Filed: 09/15/16 00:23> - Vital Signs Last Vital Signs Temp Pulse Resp BP Pulse Ox 97.8 F 73 22 118/53 99 09/14/16 20:13 09/14/16 20:13 09/14/16 20:13 09/14/16 20:13 09/14/16 20:13 <Jarred Woodward - Last Filed: 09/15/16 00:52> Heart Score/ECG Review - ECG Impressions Comment:: 09/14/16 23:13 Atrial fibrillation with premature ventricular or aberrantly conducted complexes @75bpm Anteroseptal infarct, age undetermined ST & T wave abnormality, consider inferolateral ischemia Abnormal ECG <Alana Miller - Last Filed: 09/15/16 00:23> ED Treatment Course - LABORATORY CBC & Chemistry Diagram: 09/14/16 22:40 09/14/16 22:40 <Alana Miller - Last Filed: 09/15/16 00:23> - LABORATORY CBC & Chemistry Diagram: 09/14/16 22:40 09/14/16 22:40 <Jarred Woodward - Last Filed: 09/15/16 00:52> Medical Decision Making - Medical Decision Making 09/15/16 00:[address] Norma Oropeza covering for Dr. Dariela Milian (via answering service ) at 24:25 Awaiting call back <Alana Miller - Last Filed: 09/15/16 00:23> - Medical Decision Making 09/15/16 00:51 Dr. Woodward: The scribe's documentation has been prepared under my direction and personally reviewed by me in its entirery. I confirm that the note above accurately reflects all work, treatment, procedures, and medical decision making performed by me. Patient states she is feeling better. Pt found to have fluid in the right mastoid air cells. Spoke to Dr Bernarda Oropeza> Pt to be discharged and follow up in the office. <Jarred Woodward - Last Filed: 09/15/16 00:52> *DC/Admit/Observation/Transfer - Attestations Scribe Attestion: 09/14/16 22:40 Documentation prepared by Alana Miller, acting as neuropsychology medical consultant for Jarred Woodward MD/DO <Alana Miller - Last Filed: 09/15/16 00:23> - Discharge Dispostion Admit: No <Jarred Woodward - Last Filed: 09/15/16 00:52> Diagnosis at time of Disposition: Dizziness Mastoiditis Qualifiers: Laterality: right Qualified Code(s): H70.91 - Unspecified mastoiditis, right ear - Discharge Dispostion Disposition: HOME Condition at time of disposition: Stable - Referrals Referrals: Dariela Milian MD [Primary Care Provider] - - Patient Instructions Printed Discharge Instructions: DI for Mastoiditis-Adult
[2016-09-14 22:50] LABS: MCH 30.3 pg (25.7-33.7); MCHC 32.1 g/dl (32.0-36.0); MEAN CELL VOLUME 94.3 fl (80-96); MEAN PLT VOLUME 8.8 fl (7.5-11.1); PLATELET COUNT 95 K/MM3 (134-434); RDW 17.6 % (11.6-15.6); WHITE BLOOD COUNT 4.7 K/mm3 (4.0-10.0)
[2016-09-14 23:04] LABS: INR 1.93 (0.82-1.09); PROTHROMBIN TIME (PATIENT) 21.5 SEC (9.98-11.88)
[2016-09-14 23:12] LABS: HYPOCHROMIA FEW; PLATELET ESTIMATE DECREASED (NORMAL); POLYCHROMASIA FEW
[2016-09-15] LABS: ALBUMIN 3.1 g/dl (3.4-5.0); BILIRUBIN,TOTAL 0.5 mg/dL (0.2-1.0); CALCIUM 8.8 mg/dL (8.5-10.1); COCKROFT - GAULT 10.9055; CREATININE 3.7 mg/dL (0.55-1.02); MAGNESIUM 2.2 mg/dL (1.8-2.4); TOT PROT 6.5 g/dl (6.4-8.2)
[2016-09-15 00:03] LABS: TROPONIN I 0.18 ng/ml (0.00-0.05)
[2016-09-15] MEDS ORDERED: AMOX TR/POT CLAV 500MG/125MG TABLETS (FP) ONE (00:58)
[2016-09-15] MEDS: AMOX TR/POT CLAV 500MG/125MG TABLETS (FP) PO ONE (01:08)
--- NOTE | 2016-09-15 17:24 | EKG ---
Test Reason : Blood Pressure : / mmHG Vent. Rate : 075 BPM Atrial Rate : 080 BPM P-R Int : 000 ms QRS Dur : 102 ms QT Int : 448 ms P-R-T Axes : 000 016 182 degrees QTc Int : 500 ms ATRIAL FIBRILLATION WITH PREMATURE VENTRICULAR OR ABERRANTLY CONDUCTED COMPLEXES ANTEROSEPTAL INFARCT (CITED ON OR BEFORE 07-MAR-2015) ABNORMAL ECG WHEN COMPARED WITH ECG OF 30-JUL-2016 13:18, ATRIAL FIBRILLATION HAS REPLACED ATRIAL FLUTTER Confirmed by SEAMUS WHITLEY MD ([id number]) on 09/15/2016 5:24:16 PM Referred By: Confirmed By:SEAMUS WHITLEY MD
== END 2016-09-15 01:09 | disposition home or self-care (01) ==
LOC: SUPCPDRO 19:36 → JER 19:36
DX: R42 Dizziness and giddiness (principal); I95.89 Other hypotension; I25.10 Atherosclerotic heart disease of native coronary artery without angina pectoris; I13.2 Hypertensive heart and chronic kidney disease with heart failure and with stage 5 chronic kidney disease, or end stage renal disease; N18.6 End stage renal disease; I50.9 Heart failure, unspecified; Z99.2 Dependence on renal dialysis; Z95.5 Presence of coronary angioplasty implant and graft; E03.9 Hypothyroidism, unspecified; E11.42 Type 2 diabetes mellitus with diabetic polyneuropathy; K21.9 Gastro-esophageal reflux disease without esophagitis; M19.90 Unspecified osteoarthritis, unspecified site; D64.9 Anemia, unspecified; R94.31 Abnormal electrocardiogram [ECG] [EKG]
CPT/HCPCS: 36415; 70450-TC; 71020-TC; 80053; 82550; 83735; 84484; 85025; 85610; 93005; 93010; 99283-25

== ENCOUNTER 2016-09-28 16:28 | Inpatient (IN) | payer OTHER, BC ==
[2016-09-28 16:47] VITALS: BMI 25.7
--- NOTE | 2016-09-28 16:51 | PDOC ---
History of Present Illness - History of Present Illness Initial Comments: 09/28/16 18:40 Patient is an 89 year old female with significant medical hx of CAD, s/p stent, CHF, HTN, HLD, DM, peripheral neuropathy, ESRD (on HD MWF), hypothyroidism, GERD , anemia and osteoarthritis who is presenting to the ED, accompanied by son, with dark stools and weakness for three days. Today patient was supposed to start dialysis when she was found to have a low Hb of 6.4 and was sent to the ED for transfusion. The patient complains of loose stools that are dark and tarry for three days. She states that she has gone through ten undergarments from her symptoms. The patient also complains of associated abdominal pain, weakness and decreased appetite. Family member reports that the patient has dropped a few pounds over the past few days as well. Denies fever, chills, taking NSAIDS or pepto bismol. Allergies: codeine, oxycodone HCl Social History: No alcohol, tobacco, or drug use reported. Past Surgical History: AICD, AV Fistula/Graft, Cholecystectomy, Stent PCP: Dariela Milian MD GI: Trung Robbins MD <Yuki Damico - Last Filed: 09/28/16 18:40> - General History Source: Patient, Old Records Exam Limitations: No Limitations <Raina Ramesh - Last Filed: 09/28/16 18:57> - General Chief Complaint: Weakness Stated Complaint: WEAKNESS Time Seen by Provider: 09/28/16 16:50 Past History <Yuki Damico - Last Filed: 09/28/16 18:40> - Past Medical History Anemia: No Cardiac Disorders: Yes (STENT, DIFIBRILLATOR) CHF: Yes Diabetes: Yes Dialysis: Yes (m,w,f) GI Disorders: Yes (REFLUX) Disorders: Yes (esrd x 5y, low BP @ HD) HTN: Yes Hypercholesterolemia: Yes Suicide Attempt (Hx): No Thyroid Disease: Yes (HYPOTHYROID) - Surgical History Abdominal Surgery: Yes Cardiac Surgery: Yes (pacemaker-stent) - Immunization History Immunization Up to Date: Yes - Psycho/Social/Smoking Cessation Hx Anxiety: No Suicidal Ideation: No Smoking Status: No Smoking History: Unknown if ever smoked Years of Tobacco Use: 50 Have you smoked in the past 12 months: No Number of Cigarettes Smoked Daily: 0 If you are a former smoker, when did you quit?: 25 years Hx Alcohol Use: No Drug/Substance Use Hx: No Substance Use Type: None Hx Substance Use Treatment: No <Raina Ramesh - Last Filed: 09/28/16 18:57> - Past Medical History Allergies/Adverse Reactions: Allergies Allergy/AdvReac Type Severity Reaction Status Date / Time codeine [Codeine] Allergy Mild Itching Verified 09/28/16 16:39 oxycodone HCl [From Percocet] Allergy Verified 09/28/16 16:39 Home Medications: Ambulatory Orders Levothyroxine [Synthroid -] 100 mcg PO DAILY 10/11/12 Pregabalin [Lyrica] 75 mg PO DAILY #0 capsule 02/27/13 Metoprolol Succinate [Toprol XL -] 50 mg PO ASDIR 03/09/15 Acetaminophen [Tylenol .Regular Strength -] 650 mg PO Q6H PRN #0 tablet Multivitamin/Iron/Folic Acid [Daily Vitamin Formula-Iron Tab] 1 each PO DAILY Simethicone [Mylicon -] 80 mg PO Q4H PRN #60 tab.chew 03/23/16 Sertraline HCl [Zoloft -] 50 mg PO DAILY 07/12/16 Ipratropium 0.02% Nebulizer [Atrovent 0.02% Nebulizer -] 1 amp NEB QID PRN 07/30 Midodrine HCl [Proamatine -] 20 mg PO MoWeFr@10 tablet 08/06/16 Sevelamer Carbonate [Renvela -] 800 mg PO TIDCM tab 08/06/16 Warfarin Sodium [Coumadin] 2 mg PO DAILY #30 tablet 08/07/16 Amox-Tr/K Cl [Augmentin 500Mg Tablet] 1 tab PO BID #14 tablet 09/15/16 Review of Systems - Review of Systems Comments:: 09/28/16 18:41 GENERAL/CONSTITUTIONAL: Weakness, loss of appetite, weight loss. No fever or chills. HEAD, EYES, EARS, NOSE AND THROAT: No change in vision. No ear pain or discharge. No sore throat. CARDIOVASCULAR: No chest pain or shortness of breath. RESPIRATORY: No cough, wheezing, or hemoptysis. GASTROINTESTINAL: Abdominal pain, diarrhea, dark/tarry stools. No nausea, vomiting, or constipation. GENITOURINARY: No dysuria, frequency, or change in urination. MUSCULOSKELETAL: No joint or muscle swelling or pain. No neck or back pain. ENDOCRINE: No increased thirst. SKIN: No rash NEUROLOGIC: No headache, vertigo, loss of consciousness, or change in strength/ sensation. <Yuki Damico - Last Filed: 09/28/16 18:40> *Physical Exam - Vital Signs Last Vital Signs Temp Pulse Resp BP Pulse Ox 97.5 F L 61 20 110/51 98 09/28/16 16:40 09/28/16 17:00 09/28/16 16:40 09/28/16 16:40 09/28/16 17:00 - Physical Exam Comments: 09/28/16 18:43 GENERAL: Awake, alert, and fully oriented, in no acute distress HEAD: No signs of trauma EYES: PERRLA, EOMI, sclera anicteric, conjunctiva clear ENT: Auricles normal inspection, hearing grossly normal, nares patent, oropharynx clear without exudates. Moist mucosa NECK: Normal ROM, supple, no lymphadenopathy, JVD, or masses LUNGS: Breath sounds equal, clear to auscultation bilaterally. No wheezes, and no crackles HEART: Regular rate and rhythm, normal S1 and S2, no murmurs, rubs or gallops ABDOMEN: Soft, nontender, normoactive bowel sounds. No guarding, no rebound. No masses EXTREMITIES: Normal range of motion, no edema. No clubbing or cyanosis. No cords, erythema, or tenderness NEUROLOGICAL: Cranial nerves II through XII grossly intact. Normal speech, normal gait SKIN: Warm, Dry, normal turgor, no rashes or lesions noted. HEMATOLOGIC/LYMPHATIC: No anemia, easy bleeding, or history of blood clots. ALLERGIC/IMMUNOLOGIC: No hives or skin allergy. RECTAL: Dark stools. <Yuki Damico - Last Filed: 09/28/16 18:40> - Vital Signs Last Vital Signs Temp Pulse Resp BP Pulse Ox 97.5 F L 61 20 110/51 100 09/28/16 16:40 09/28/16 16:40 09/28/16 16:40 09/28/16 16:40 09/28/16 16:40 <Raina Ramesh - Last Filed: 09/28/16 18:57> ED Treatment Course - LABORATORY CBC & Chemistry Diagram: 09/28/16 17:08 09/28/16 17:08 - ADDITIONAL ORDERS Additional order review: Laboratory Results 09/28/16 09/28/16 09/28/16 18:00 17:08 17:08 INR PTT (Actin FS) Sodium 140 Potassium 4.8 D Chloride 101 Carbon Dioxide 21 D Anion Gap 18 H BUN 120 H* D Creatinine 5.1 H D Creat Clearance w eGFR 7.98 Random Glucose 142 H D Calcium 8.9 Total Bilirubin 0.5 AST 21 ALT 22 Alkaline Phosphatase 260 H Creatine Kinase 40 Troponin I 0.19 H Total Protein 6.2 L Albumin 3.0 L Stool Occult Blood Positive Crossmatch See Detail 09/28/16 17:08 INR 2.52 H D PTT (Actin FS) 35.4 H Sodium Potassium Chloride Carbon Dioxide Anion Gap BUN Creatinine Creat Clearance w eGFR Random Glucose Calcium Total Bilirubin AST ALT Alkaline Phosphatase Creatine Kinase Troponin I Total Protein Albumin Stool Occult Blood Crossmatch 09/28/16 17:08 RBC 2.44 L D MCV 94.7 MCHC 31.8 L RDW 18.2 H MPV 9.4 Neutrophils % 66.6 Lymphocytes % 20.6 D Monocytes % 11.0 H Eosinophils % 0.7 D Basophils % 1.1 <Yuki Damico - Last Filed: 09/28/16 18:40> - LABORATORY CBC & Chemistry Diagram: 09/28/16 17:08 09/28/16 17:08 <Raina Ramesh - Last Filed: 09/28/16 18:57> Medical Decision Making - Medical Decision Making 09/28/16 17:54 89-year-old female with history of hypertension, diabetes, coronary artery disease, CHF, end-stage renal disease on hemodialysis, GERD, hypothyroid, a-fib on coumadin presents to the emergency department with generalized weakness and dark stools. Differential diagnosis includes but is not limited to: Anemia, GI bleed, electrolyte abnormality, infection, dehydration, toxic/metabolic derangement, atypical presentation of ACS. Plan: 1. Labs 2. Stool for occult blood 3. Renal consult 4. Chest x-ray 5. EKG 6. Reversal of coumadin if necessary 7. Observe and reevaluate 09/28/16 18:54 Addendum: The labs are reviewed and are noted in the EMR. The hemoglobin is 7.4 today down from 10.3 2 weeks ago. The stool is positive for occult blood. The INR is 2.2. I have discussed the case with the electric deicer assembler as well as the primary care physician. The plan is to transfuse 1 unit of packed cells tonight with a second unit tomorrow. The plan is to admit the patient to the ICU for close monitoring. This case has been discussed with the risk specialist. <Raina Ramesh - Last Filed: 09/28/16 18:57> *DC/Admit/Observation/Transfer - Attestations Scribe Attestion: 09/28/16 18:43 Documentation prepared by Yuki Damico, acting as medical transport specialist for Raina Ramesh MD. <Yuki Damico - Last Filed: 09/28/16 18:40> - Discharge Dispostion Admit: Yes - Attestations Physician Attestion: 09/28/16 17:57 I, Dr. Raina Ramesh, attest that the scribes documentation that appears above has been prepared under my direction and personally reviewed by me in its entirety. I confirmed that the note above accurately reflects all work, treatment, procedures, and medical decision-making performed by me. <Raina Ramesh - Last Filed: 09/28/16 18:57> Diagnosis at time of Disposition: Anemia, ESRD on hemodialysis, GI bleed - Discharge Dispostion Condition at time of disposition: Good - Referrals Referrals: Dariela Milian MD [Primary Care Provider] -
[2016-09-28 17:21] LABS: BASOPHIL 1.1 % (0-2.0); EOSINOPHIL 0.7 % (0-4.5); MCH 30.1 pg (25.7-33.7); MCHC 31.8 g/dl (32.0-36.0); MEAN CELL VOLUME 94.7 fl (80-96); MEAN PLT VOLUME 9.4 fl (7.5-11.1); NEUTROPHILS 66.6 % (42.8-82.8); PLATELET COUNT 124 K/MM3 (134-434); RDW 18.2 % (11.6-15.6); WHITE BLOOD COUNT 5.1 K/mm3 (4.0-10.0)
[2016-09-28 17:40] LABS: BILIRUBIN,TOTAL 0.5 mg/dL (0.2-1.0); CALCIUM 8.9 mg/dL (8.5-10.1); COCKROFT - GAULT 7.9135; CREATININE 5.1 mg/dL (0.55-1.02); TOT PROT 6.2 g/dl (6.4-8.2)
[2016-09-28 17:42] LABS: TROPONIN I 0.19 ng/ml (0.00-0.05)
[2016-09-28 17:47] LABS: INR 2.52 (0.82-1.09); PROTHROMBIN TIME (PATIENT) 28.3 SEC (9.98-11.88)
[2016-09-28 17:50] LABS: ACTIVATED PTT 35.4 SECONDS (26.9-34.4)
[2016-09-28] MEDS ORDERED: DEXAMETHASONE SOD PHOSPHATE 4 MG/1 ML VIAL ONE (18:18)
[2016-09-28] MEDS ORDERED: ALBUTEROL SO4 0.083% IH SOL 2.5 MG/3 ML VIAL.NEB. NEB ONE (18:18)
[2016-09-29] MEDS ORDERED: ACETAMINOPHEN 325 MG TABLET (FP) PO ONE (08:43)
[2016-09-29] MEDS ORDERED: ACETAMINOPHEN 325 MG TABLET (FP) ONE (08:44)
[2016-09-29] MEDS ORDERED: IPRATROPIUM BR 0.02% 0.5 MG/2.5 ML VIAL.NEB. NEB PRN (09:55)
--- NOTE | 2016-09-29 09:58 | HP ---
Admitting History and Physical - Primary Care Physician PCP: Dariela Milian - Admission Chief Complaint: weakness, gi bleed History of Present Illness: ER HISTORY - History of Present Illness Initial Comments: 09/28/16 18:40 Patient is an 89 year old female with significant medical hx of CAD, s/p stent, CHF, HTN, HLD, DM, peripheral neuropathy, ESRD (on HD MWF), hypothyroidism, GERD , anemia and osteoarthritis who is presenting to the ED, accompanied by son, with dark stools and weakness for three days. Today patient was supposed to start dialysis when she was found to have a low Hb of 6.4 and was sent to the ED for transfusion. The patient complains of loose stools that are dark and tarry for three days. She states that she has gone through ten undergarments from her symptoms. The patient also complains of associated abdominal pain, weakness and decreased appetite. Family member reports that the patient has dropped a few pounds over the past few days as well. Denies fever, chills, taking NSAIDS or pepto bismol. Allergies: codeine, oxycodone HCl Social History: No alcohol, tobacco, or drug use reported. Past Surgical History: AICD, AV Fistula/Graft, Cholecystectomy, Stent PCP: Dariela Milian MD GI: Trung Robbins MD Pt seen and examined in ER Daughter at bedside Pt has been having abdominal pain , tarry stools , poor appetite and weakness for 5 days,Nausea+ She was sent from dialysis for low Hb and weakness. Received 1 unit PRBC in ER. Took two tabs of Motrin a few days ago . 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 History Source: Patient, Family Member Limitations to Obtaining History: No Limitations - Past Medical History CORPORATE PARALEGAL: Yes: Peripheral Neuropathy Cardiovascular: Yes: CAD, CHF, HTN, Hyperlipdemia, Other (S/P PCI/stent, chronic diastolic CHF) Gastrointestinal: Yes: Constipation, Gastritis, GERD, Peptic Ulcer Disease Renal/: Yes: Renal Failure, Hemodialysis Heme/Onc: Yes: Anemia Musculoskeletal: Yes: Osteoarthritis Endocrine: Yes: Diabetes Mellitus, Hypothyroidism - Past Surgical History Past Surgical History: Yes: AICD, AV Fistula/Graft, Cholecystectomy, Stent - Smoking History Smoking history: Unknown if ever smoked Have you smoked in the past 12 months: No Aproximately how many cigarettes per day: 0 If you are a former smoker, when did you quit?: 25 years - Alcohol/Substance Use Hx Alcohol Use: No History of Substance Use: reports: None - Social History ADL: Independent 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 History of Recent Travel: No Home Medications - Allergies Allergies/Adverse Reactions: Allergies Allergy/AdvReac Type Severity Reaction Status Date / Time codeine [Codeine] Allergy Mild Itching Verified 09/28/16 16:39 oxycodone HCl [From Percocet] Allergy Verified 09/28/16 16:39 - Home Medications Home Medications: Ambulatory Orders Levothyroxine [Synthroid -] 100 mcg PO DAILY 10/11/12 Pregabalin [Lyrica] 75 mg PO DAILY #0 capsule 02/27/13 Metoprolol Succinate [Toprol XL -] 50 mg PO ASDIR 03/09/15 Acetaminophen [Tylenol .Regular Strength -] 650 mg PO Q6H PRN #0 tablet Multivitamin/Iron/Folic Acid [Daily Vitamin Formula-Iron Tab] 1 each PO DAILY Simethicone [Mylicon -] 80 mg PO Q4H PRN #60 tab.chew 03/23/16 Sertraline HCl [Zoloft -] 50 mg PO DAILY 07/12/16 Ipratropium 0.02% Nebulizer [Atrovent 0.02% Nebulizer -] 1 amp NEB QID PRN 07/30 Midodrine HCl [Proamatine -] 20 mg PO MoWeFr@10 tablet 08/06/16 Sevelamer Carbonate [Renvela -] 800 mg PO TIDCM tab 08/06/16 Warfarin Sodium [Coumadin] 2 mg PO DAILY #30 tablet 08/07/16 Folic Acid/Vit Bcomp,C [Cassie-Mahendra Tablet] 0.8 mg PO DAILY 09/28/16 Ipratropium 0.02% Nebulizer [Atrovent] 1 neb NEB DAILY 09/28/16 Omeprazole 20 mg PO DAILY 09/28/16 Ondansetron HCl 4 mg PO PRN 09/28/16 Review of Systems - Review of Systems Constitutional: reports: Loss of Appetite, Weakness. denies: Chills, Fever Cardiovascular: denies: Chest Pain, Palpitations, Shortness of Breath Gastrointestinal: reports: Abdominal Pain, Diarrhea, Nausea. denies: Constipation Physical Examination Vital Signs: Vital Signs Temperature 98.3 F 09/28/16 22:32 Pulse Rate 19 L 09/29/16 08:11 Respiratory Rate 17 09/29/16 08:11 Blood Pressure 95/47 09/29/16 08:11 O2 Sat by Pulse Oximetry (%) 96 09/29/16 09:12 Constitutional: Yes: No Distress, Calm Cardiovascular: Yes: Regular Rate and Rhythm Respiratory: Yes: Diminished Gastrointestinal: Yes: Normal Bowel Sounds, Soft, Tenderness (epigastric). No: Distention Edema: No Psychiatric: Yes: Alert, Oriented Labs: Laboratory Last Values WBC 6.7 K/mm3 (4.0-10.0) D 09/29/16 11:00 RBC 2.30 M/mm3 (3.60-5.2) L 09/29/16 11:00 Hgb 7.0 GM/dL (10.7-15.3) L 09/29/16 11:00 Hct 21.6 % (32.4-45.2) L 09/29/16 11:00 MCV 93.8 fl (80-96) 09/29/16 11:00 MCHC 32.3 g/dl (32.0-36.0) 09/29/16 11:00 RDW 17.3 % (11.6-15.6) H 09/29/16 11:00 Plt Count 115 K/MM3 (134-434) L 09/29/16 11:00 MPV 9.4 fl (7.5-11.1) 09/29/16 11:00 Neutrophils % 66.6 % (42.8-82.8) 09/28/16 17:08 Lymphocytes % 20.6 % (8-40) D 09/28/16 17:08 Monocytes % 11.0 % (3.8-10.2) H 09/28/16 17:08 Eosinophils % 0.7 % (0-4.5) D 09/28/16 17:08 Basophils % 1.1 % (0-2.0) 09/28/16 17:08 INR 2.52 (0.82-1.09) H D 09/28/16 17:08 PTT (Actin FS) 35.4 SECONDS (26.9-34.4) H 09/28/16 17:08 Sodium 140 mmol/L (136-145) 09/28/16 17:08 Potassium 4.8 mmol/L (3.5-5.1) D 09/28/16 17:08 Chloride 101 mmol/L (98-107) 09/28/16 17:08 Carbon Dioxide 21 mmol/L (21-32) D 09/28/16 17:08 Anion Gap 18 (8-16) H 09/28/16 17:08 BUN 120 mg/dL (7-18) H* D 09/28/16 17:08 Creatinine 5.1 mg/dL (0.55-1.02) H D 09/28/16 17:08 Creat Clearance w eGFR 7.98 (>60) 09/28/16 17:08 Random Glucose 142 mg/dL (74-106) H D 09/28/16 17:08 Calcium 8.9 mg/dL (8.5-10.1) 09/28/16 17:08 Total Bilirubin 0.5 mg/dL (0.2-1.0) 09/28/16 17:08 AST 21 U/L (15-37) 09/28/16 17:08 ALT 22 U/L (12-78) 09/28/16 17:08 Alkaline Phosphatase 260 U/L (45-117) H 09/28/16 17:08 Creatine Kinase 40 IU/L (26-192) 09/28/16 17:08 Troponin I 0.19 ng/ml (0.00-0.05) H 09/28/16 17:08 Total Protein 6.2 g/dl (6.4-8.2) L 09/28/16 17:08 Albumin 3.0 g/dl (3.4-5.0) L 09/28/16 17:08 Lipase 267 U/L (73-393) 09/28/16 17:47 Stool Occult Blood Positive (NEGATIVE) 09/28/16 18:00 Blood Type O NEGATIVE 09/28/16 17:08 Antibody Screen Negative 09/28/16 17:08 Crossmatch See Detail 09/28/16 17:08 Imaging - Results Chest X-ray: Image Reviewed (clear) EKG: Image Reviewed (Aflutter) Problem List - Problems (1) Anemia Code(s): D64.9 - ANEMIA, UNSPECIFIED Qualifiers: Iron deficiency anemia type: chronic blood loss (2) ESRD on hemodialysis Code(s): N18.6 - END STAGE RENAL DISEASE Z99.2 - DEPENDENCE ON RENAL DIALYSIS (3) GI bleed Code(s): K92.2 - GASTROINTESTINAL HEMORRHAGE, UNSPECIFIED Qualifiers: GI bleed type/associated pathology: melena Qualified Code(s): K92.1 - Melena (4) Abdominal pain Code(s): R10.9 - UNSPECIFIED ABDOMINAL PAIN Qualifiers: Abdominal location: left upper quadrant Qualified Code(s): R10.12 - Left upper quadrant pain (5) Atrial flutter Code(s): I48.92 - UNSPECIFIED ATRIAL FLUTTER Qualifiers: Atrial flutter type: typical Qualified Code(s): I48.3 - Typical atrial flutter (6) Troponin level elevated Code(s): R79.89 - OTHER SPECIFIED ABNORMAL FINDINGS OF BLOOD CHEMISTRY Assessment/Plan PLAN Warfarin on hold She currently does not have active bleeding, will not reverse INR GI eval for endoscopy-- likely PUD Protonix IV Check serial cardiac enzymes Cardiology consult Spoke with renal -- will dialyse today Will need another PRBC during dialysis may continue Midodrine Hold Metoprolol as BP is low Monitor Hb/HCT Time spent 35 min
[2016-09-29] MEDS ORDERED: PANTOPRAZOLE SODIUM 40 MG in SODIUM CHLORIDE 100 ML IVPB SCH (10:00)
[2016-09-29] MEDS ORDERED: EPOETIN ALFA 20,000 UNIT/1 ML VIAL SQ ONE (10:00)
[2016-09-29] MEDS ORDERED: LEVOTHYROXINE NA 100 MCG TABLET (FP) PO SCH (10:00)
[2016-09-29] MEDS ORDERED: LEVOTHYROXINE NA 25 MCG TABLET (FP) ONE (10:10)
[2016-09-29] MEDS ORDERED: PANTOPRAZOLE SODIUM 100 ML IVPB ONE (10:10)
[2016-09-29] MEDS ORDERED: PANTOPRAZOLE SODIUM 100 ML IVPB SCH (10:50)
[2016-09-29 11:22] LABS: MCH 30.3 pg (25.7-33.7); MCHC 32.3 g/dl (32.0-36.0); MEAN CELL VOLUME 93.8 fl (80-96); MEAN PLT VOLUME 9.4 fl (7.5-11.1); PLATELET COUNT 115 K/MM3 (134-434); RDW 17.3 % (11.6-15.6); WHITE BLOOD COUNT 6.7 K/mm3 (4.0-10.0)
--- NOTE | 2016-09-29 13:45 | CON.CARD ---
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 Reports dyspnea overnight, currently asymptomatic without chest pain, dyspnea, palpitations, near or true syncope, orthopnea, PND or LE edema. Allergies: codeine, oxycodone HCl Social History: No alcohol, tobacco, or drug use reported. Past Surgical History: AICD, AV Fistula/Graft, Cholecystectomy, Stent PCP: Dariela Milian MD GI: Trung Robbins MD - History Source History Provided By: Patient Limitations to Obtaining History: No Limitations - Past Medical History WATER PUMPER: Yes: Peripheral Neuropathy Cardio/Vascular: Yes: CAD, CHF, HTN, Hyperlipdemia, Other (S/P PCI/stent, chronic diastolic CHF) Gastrointestinal: Yes: Constipation, Gastritis, GERD, Peptic Ulcer Disease Renal/: Yes: Renal Failure, Hemodialysis Musculoskeletal: Yes: Osteoarthritis Endocrine: Yes: Diabetes Mellitus, Hypothyroidism - Past Surgical History Past Surgical History: Yes: AICD, AV Fistula/Graft, Cholecystectomy, Stent - Alcohol/Substance Use Hx Alcohol Use: No History of Substance Use: reports: None - Smoking History Smoking history: Unknown if ever smoked Have you smoked in the past 12 months: No Aproximately how many cigarettes per day: 0 If you are a former smoker, when did you quit?: 25 years - Social History ADL: Independent 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 History of Recent Travel: No Home Medications - Allergies Allergies/Adverse Reactions: Allergies Allergy/AdvReac Type Severity Reaction Status Date / Time codeine [Codeine] Allergy Mild Itching Verified 09/28/16 16:39 oxycodone HCl [From Percocet] Allergy Verified 09/28/16 16:39 - Home Medications Home Medications: Ambulatory Orders Levothyroxine [Synthroid -] 100 mcg PO DAILY 10/11/12 Pregabalin [Lyrica] 75 mg PO DAILY #0 capsule 02/27/13 Metoprolol Succinate [Toprol XL -] 50 mg PO ASDIR 03/09/15 Acetaminophen [Tylenol .Regular Strength -] 650 mg PO Q6H PRN #0 tablet Multivitamin/Iron/Folic Acid [Daily Vitamin Formula-Iron Tab] 1 each PO DAILY Simethicone [Mylicon -] 80 mg PO Q4H PRN #60 tab.chew 03/23/16 Sertraline HCl [Zoloft -] 50 mg PO DAILY 07/12/16 Ipratropium 0.02% Nebulizer [Atrovent 0.02% Nebulizer -] 1 amp NEB QID PRN 07/30 Midodrine HCl [Proamatine -] 20 mg PO MoWeFr@10 tablet 08/06/16 Sevelamer Carbonate [Renvela -] 800 mg PO TIDCM tab 08/06/16 Warfarin Sodium [Coumadin] 2 mg PO DAILY #30 tablet 08/07/16 Folic Acid/Vit Bcomp,C [Cassie-Mahendra Tablet] 0.8 mg PO DAILY 09/28/16 Ipratropium 0.02% Nebulizer [Atrovent] 1 neb NEB DAILY 09/28/16 Omeprazole 20 mg PO DAILY 09/28/16 Ondansetron HCl 4 mg PO PRN 09/28/16 Review of Systems - Review of Systems Constitutional: reports: Lethargy, Weakness Gastrointestinal: reports: Melena Vital Signs: Vital Signs Temperature 98.3 F 09/28/16 22:32 Pulse Rate 19 L 09/29/16 08:11 Respiratory Rate 17 09/29/16 08:11 Blood Pressure 95/47 09/29/16 08:11 O2 Sat by Pulse Oximetry (%) 96 09/29/16 09:12 Constitutional: Yes: No Distress, Calm Neck: Yes: Supple, Tenderness Respiratory: Yes: Diminished Gastrointestinal: Yes: Soft, Hypoactive Bowel Sounds Cardiovascular: Yes: Regular Rate and Rhythm JVD: No Carotid Bruit: No Heart Sounds: Yes: S1, S2 Murmur: Yes: Systolic Murmur, Grade 1 Edema: Yes Edema: LLE: 1+, RLE: 1+ - Other Data Labs, Other Data: CBC, BMP 09/29/16 11:00 INR, PTT INR 2.52 (0.82-1.09) H D 09/28/16 17:08 Afib @ 61 Ejection Fraction %: LVEF < 40 % Imaging - Results Chest X-ray: Report Reviewed (Cardiomegaly) Problem List - Problems (1) Anemia Code(s): D64.9 - ANEMIA, UNSPECIFIED Qualifiers: Iron deficiency anemia type: chronic blood loss (2) ESRD on hemodialysis Code(s): N18.6 - END STAGE RENAL DISEASE Z99.2 - DEPENDENCE ON RENAL DIALYSIS (3) GI bleed Code(s): K92.2 - GASTROINTESTINAL HEMORRHAGE, UNSPECIFIED Qualifiers: GI bleed type/associated pathology: melena Qualified Code(s): K92.1 - Melena (4) Aortic stenosis Code(s): I35.0 - NONRHEUMATIC AORTIC (VALVE) STENOSIS Qualifiers: Cardiac valve disease etiology: nonrheumatic Qualified Code(s): I35.0 - Nonrheumatic aortic (valve) stenosis (5) Atrial flutter Code(s): I48.92 - UNSPECIFIED ATRIAL FLUTTER Qualifiers: Atrial flutter type: typical Qualified Code(s): I48.3 - Typical atrial flutter (6) CAD (coronary artery disease) Code(s): I25.10 - ATHSCL HEART DISEASE OF [place] CORONARY ARTERY W/O ANG PCTRS Qualifiers: Coronary Disease-Associated Artery/Lesion type: [place] artery [place] vs. transplanted heart: [place] heart Associated angina: without angina Qualified Code(s): I25.10 - Atherosclerotic heart disease of [place] coronary artery without angina pectoris (7) Diabetes Code(s): E11.9 - TYPE 2 DIABETES MELLITUS WITHOUT COMPLICATIONS Qualifiers: Diabetes mellitus type: type 2 Diabetes mellitus complication status: without complication Diabetes mellitus retirement insulin use: without retirement use Qualified Code(s): E11.9 - Type 2 diabetes mellitus without complications (8) ESRD on dialysis Code(s): N18.6 - END STAGE RENAL DISEASE Z99.2 - DEPENDENCE ON RENAL DIALYSIS (9) GERD (gastroesophageal reflux disease) Code(s): K21.9 - GASTRO-ESOPHAGEAL REFLUX DISEASE WITHOUT ESOPHAGITIS Qualifiers: Esophagitis presence: esophagitis presence not specified Qualified Code(s): K21.9 - Gastro-esophageal reflux disease without esophagitis (10) History of percutaneous coronary intervention Code(s): Z98.89 - OTHER SPECIFIED POSTPROCEDURAL STATES * DO NOT USE * (11) Hyperlipidemia Code(s): E78.5 - HYPERLIPIDEMIA, UNSPECIFIED Qualifiers: Hyperlipidemia type: pure hypercholesterolemia Qualified Code(s): E78.00 - Pure hypercholesterolemia, unspecified; E78.0 - Pure hypercholesterolemia (12) Hypothyroidism Code(s): E03.9 - HYPOTHYROIDISM, UNSPECIFIED Qualifiers: Hypothyroidism type: unspecified Qualified Code(s): E03.9 - Hypothyroidism, unspecified (13) Labile essential hypertension Code(s): I10 - ESSENTIAL (PRIMARY) HYPERTENSION (14) Single implantable cardioverter-defibrillator (ICD) in situ Code(s): Z95.810 - PRESENCE OF AUTOMATIC (IMPLANTABLE) CARDIAC DEFIBRILLATOR (15) Subendocardial ischemia Code(s): I24.8 - OTHER FORMS OF ACUTE ISCHEMIC HEART DISEASE (16) Systolic dysfunction without heart failure Code(s): I51.9 - HEART DISEASE, UNSPECIFIED (17) Troponin level elevated Code(s): R79.89 - OTHER SPECIFIED ABNORMAL FINDINGS OF BLOOD CHEMISTRY Assessment/Plan 01/14/2016 Mildly dilated and severely decreased LV fxn, severe TR, mild , [place], [place] 1. Paroxysmal atrial fib/flutter -> SR with therapeutic INR 2. LV systolic dysfunction with history of failure, currently compensated S/P ICD 3. Elevated troponin - subendocardial ischemia 4. CAD, s/p PCI/stent, angina 5. ESRD on HD via LUE HeRo graft 6. Type 2 DM 7. Hypercholesterolemia 8. Mild aortic stenosis and aortic regurgitation 9. Anemia and thrombcytopenia 10. Hypothyroidism PLAN: 1. Hold Coumadin until hemostasis achieved, transfuse pRBC to maintain Hgb>8.0 2. Hold Metoprolol ER 50 qd pending hemodynamic stability, continue Midodrine 20 MWF with HD 3. ICD interrogation as outpatient 4. HD as per renal service 5. GI protection, await GI input 6. Thank you for consultative opportunity
--- NOTE | 2016-09-29 13:53 | PN ---
Progress Note (short form) - Note Progress Note: Full consult dictated
--- NOTE | 2016-09-29 14:53 | CONS ---
DATE OF CONSULTATION: DATE OF DICTATION: 09/29/2016 REQUESTING PHYSICIAN: Dariela Milian MD HISTORY OF PRESENT ILLNESS: Patient is an 89-year-old female admitted through [facility] emergency room for evaluation of melena. States that she had abdominal pain about 3 days ago requiring her to take more Tums. She states having multiple pitch-black bowel movements yesterday and because of the continued dark bowel movements she came to the emergency room for further evaluation. Her hemoglobin was 7 in the emergency room. She was last evaluated in February 2016 when she was admitted for slip and fall at home and that she had been having loose bowel movements. Prior to that, she was evaluated in October 2015 which led to an upper endoscopy revealing [place] esophagitis in the esophagus, mild gastritis in the gastric body and antrum, and with a small antral ulceration. He recommended avoidance of NSAIDs, pantoprazole 40 mg once daily. She is unclear if she has been on pantoprazole 40 mg once daily. She denies any NSAID use. She was also admitted for shortness of breath at [facility] June 2014. She was treated for CHF and at that time she had nonrevealing upper GI series and abdominal ultrasound revealed fatty liver. EGD performed in October [address] Magana also revealed GERD with ulcerations, Antonietta esophagitis, and a hiatal hernia. She completed a course of Diflucan at that time and continued to take pantoprazole and I performed a followup EGD in January 2013 that revealed a resolved esophagitis, nodular mucosa in the antrum, biopsies of which were unremarkable, as well as nonerosive duodenitis. She has refused colonoscopy on multiple occasions and as above upper GI series in June 2015 revealed tertiary contractions in the small hiatal hernia and abdominal ultrasound in June 2015 revealed fatty liver and atrophic right kidney. PAST MEDICAL HISTORY: Includes peripheral neuropathy, coronary artery disease, angina, CHF, hypertension, hyperlipidemia, dilated cardiomyopathy, status post ICD, status post PCI, stent placement, chronic diastolic CHF, constipation, gastritis, GERD, history of peptic ulcer disease, renal failure, on hemodialysis and her access is malfunctioning, osteoarthritis, diabetes mellitus, type 2, hypothyroidism, history of orthostatic hypotension. PAST SURGICAL HISTORY: Includes AICD and AV fistula graft placement, cholecystectomy, and cardiac stenting. SOCIAL HISTORY: No history of ETOH abuse. She is a former smoker; she quit in 1998. Lives independently. 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 FAMILY HISTORY: There is no family history of colorectal cancer or other GI malignancies. MEDICATIONS PRIOR TO ADMISSION: Include Synthroid, Lyrica, Toprol XL, Tylenol extra strength as needed, Mylicon, Zoloft, Atrovent, Proamatine, Renvela, Coumadin, omeprazole 20 mg once daily, Zofran, Cassie-Mahendra. REVIEW OF SYSTEMS: She denies any chest pain or shortness of breath. She denied any nausea or vomiting. She did complain of abdominal pain. She also described increased belching over the last 1 to 2 days. She denies any jamal rectal bleeding. Her last bowel movement was today and she believes that her stool is becoming more brown in appearance. PHYSICAL EXAMINATION: General: The patient was lying comfortably in her bed. She appeared to be in no apparent distress. Vital Signs: She was afebrile, pulse 79, blood pressure 95/47. HEENT: Sclerae are anicteric. Neck: Supple. Heart: Revealed a Regular rate and rhythm. No murmurs were appreciated. Lungs: Clear to auscultation bilaterally. Abdomen: Nondistended. She had normoactive bowel sounds. No hepatosplenomegaly is appreciated. No masses are palpated and a hernia is detected. No tenderness is elicited. Extremities: Examination of the lower extremities revealed trace bilateral lower extremity edema. Rectal: Digital rectal exam: No external lesions. No masses. She did have scant dark-brown liquid stool in the rectal vault which is guaiac positive. LABORATORY EVALUATION: White blood count 6.7, hemoglobin 7, hematocrit 21.6, MCV of 93.8, platelets of 115. INR of 2.52 and PTT of 35.4 and she believes that she has not taken her Coumadin for 3 days. Sodium 140, potassium 4.8, chloride 101, bicarbonate of 21, BUN of 120, creatinine 5.1, glucose 142, AST of 21, ALT of 22, alkaline phosphatase 260, total bilirubin 0.5 with an albumin of 3.0, lipase of 267. A stool specimen sent was positive for occult blood. RADIOLOGY REPORTS: Chest x-ray performed revealed cardiomegaly, no acute pathology or significant changes from September 15, 2016. IMPRESSION: An 89-year-old female, multiple medical problems, now with a history of melena. She remains hemodynamically stable. Her elevated blood urea nitrogen may be reflecting upper intestinal blood loss. However, her dialysis access also is not functioning properly and this could be reflecting azotemia from her chronic renal disease as well. RECOMMENDATIONS: I have advised the following: Keep the patient on a clear liquid diet. Agree with Protonix but will make it an IV drip. I did discuss the possibility of an upper endoscopy tomorrow pending her clinical condition and if her dialysis access can be restored. We discussed potential risks of the procedure like, but not limited to, bleeding, perforation requiring surgery to repair, infection, and sedation medication effects, all of which could be potentially life threatening. She has agreed to the procedure. Continue to monitor hemoglobin and hematocrit and for signs of ongoing GI bleeding. If melena persists or worsening anemia, then she should be transferred to the ICU for closer monitoring. Other recommendations will be made pending the patient's clinical course. I thank you for this consultative opportunity. MAYI ROSE DO [id number]
--- NOTE | 2016-09-29 14:58 | PN ---
Progress Note (short form) - Note Progress Note: Renal Consult for ESRD on HD This is a 89 year old woman with PMhx of ESRD on HD (MWF), DM Type 2, CAD, Hypothyroidism, Anemia, Renal Osteodystrophy, who presented with weakness and found to have acute on chronic anemia with GI bleed. Pt was sent from dialysis with low Hgb (6.4) and low BP. Pt states that she has been feeling unwell for the past 5 days. Took Motrin x 1 3 days ago. No sob or chest pain. No N/V/D. s/ p Recent Hero graft by vascualar sx on last admission. Pt found to have clotted gfraft when dialysis was attempted as a inpatient. No fever, chills, DUMONT, chest pain, swelling, N/V/D. PMhx: as above Allergies: Codine Family Hx: NC Social Hx: No T/A/D ROS: as per HPI, all other pertinent ros negative Home Meds: Home Medications Medication Instructions Recorded Levothyroxine [Synthroid -] 100 mcg PO DAILY 10/11/12 Pregabalin [Lyrica] 75 mg PO DAILY #0 capsule 02/27/13 Metoprolol Succinate [Toprol XL -] 50 mg PO ASDIR 03/09/15 Acetaminophen [Tylenol .Regular 650 mg PO Q6H PRN #0 tablet 01/18/16 Strength -] Multivitamin/Iron/Folic Acid 1 each PO DAILY 03/20/16 [Daily Vitamin Formula-Iron Tab] Simethicone [Mylicon -] 80 mg PO Q4H PRN #60 tab.chew 03/23/16 Sertraline HCl [Zoloft -] 50 mg PO DAILY 07/12/16 Ipratropium 0.02% Nebulizer 1 amp NEB QID PRN 07/30/16 [Atrovent 0.02% Nebulizer -] Midodrine HCl [Proamatine -] 20 mg PO MoWeFr@10 tablet 08/06/16 Sevelamer Carbonate [Renvela -] 800 mg PO TIDCM tab 08/06/16 Warfarin Sodium [Coumadin] 2 mg PO DAILY #30 tablet 08/07/16 Folic Acid/Vit Bcomp,C [Cassie-Mahendra 0.8 mg PO DAILY 09/28/16 Tablet] Ipratropium 0.02% Nebulizer 1 neb NEB DAILY 09/28/16 [Atrovent] Omeprazole 20 mg PO DAILY 09/28/16 Ondansetron HCl 4 mg PO PRN 09/28/16 Vital Signs Temperature 98.3 F 09/28/16 22:32 Pulse Rate 19 L 09/29/16 08:11 Respiratory Rate 17 09/29/16 08:11 Blood Pressure 95/47 09/29/16 08:11 O2 Sat by Pulse Oximetry (%) 96 09/29/16 09:12 Intake & Output 09/26/16 09/27/16 09/28/16 09/29/16 23:59 23:59 23:59 23:59 Weight 145 lb 144 lb 15.968 oz Gen: NAD, awake and alert HEENT: NC/AT, MMM, No JVD, Neck supple CVS: RRR, No M/R Lungs: CTA, no rales or wheeze Abd: soft NT/ND Ext: No edema, clubbing or cyanosis Acess: + bruit with pulseation (exam done before dialysis) Neuro: No focal defects CBC, BMP 09/29/16 11:00 09/28/16 17:08 Current Medications Acetaminophen (Tylenol -) 650 mg PO Q6H PRN PRN Reason: FEVER OR PAIN Pantoprazole Sodium 80 mg/ (Sodium Chloride) 100 mls @ 10 mls/hr IVPB Q10H LINDA PRN Reason: 8 MG/HR Ipratropium [place] (Atrovent 0.02% Nebulizer -) 1 amp NEB QID PRN PRN Reason: SHORTNESS OF BREATH Levothyroxine Sodium (Synthroid -) 100 mcg PO DAILY@0700 LINDA Midodrine (Proamatine -) 10 mg PO MoWeFr@10 LINDA A/P 89 year old woman with PMhx of ESRD on HD (MWF), DM Type 2, CAD, Hypothyroidism , Anemia, Renal Osteodystrophy, who presented with weakness and found to have acute on chronic anemia with GI bleed. #ESRD on HD with clotted AVG Spoke with Vascular, will attempt to have temporary HD catheter inserted and have dialysis through that today will plan to have 2 hour treatment today and additional dialysis tomorrow [place]ott of the AVG as per vascular #GI bleed with acute anemia PRBC transfusion to maintain hgb > 8 GI follow up and possible endoscopy #Hypotension Continue Midodrine before dialysis #Afib on Coumadin holding A/C for now Cardiology follow up Thank you Will follow Yahir Cortez DO
[2016-09-29] MEDS: ACETAMINOPHEN 325 MG TABLET (FP) PO PRN ×2 (16:55→22:45)
--- NOTE | 2016-09-29 17:12 | CONSULT ---
Consult - History of Present Illness History of Present Illness: 89 year old woman with ESRD on HD. She has a left arm HeRO graft that was placed in July 2016. Patient admitted with GI bleeding and anemia. Attempted dialysis today was unsuccessful. - Past Medical History [employer]: Yes: Peripheral Neuropathy Cardio/Vascular: Yes: CAD, CHF, HTN, Hyperlipdemia, Other (S/P PCI/stent, chronic diastolic CHF) Gastrointestinal: Yes: Constipation, Gastritis, GERD, Peptic Ulcer Disease Renal/: Yes: Renal Failure, Hemodialysis ...: No Musculoskeletal: Yes: Osteoarthritis Endocrine: Yes: Diabetes Mellitus, Hypothyroidism - Past Surgical History Past Surgical History: Yes: AICD, AV Fistula/Graft, Cholecystectomy, Stent - Alcohol/Substance Use Hx Alcohol Use: No History of Substance Use: reports: None - Smoking History Smoking history: Unknown if ever smoked Have you smoked in the past 12 months: No Aproximately how many cigarettes per day: 0 If you are a former smoker, when did you quit?: 25 years - Social History ADL: Independent 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 History of Recent Travel: No Home Medications - Allergies Allergies/Adverse Reactions: Allergies Allergy/AdvReac Type Severity Reaction Status Date / Time codeine [Codeine] Allergy Mild Itching Verified 09/28/16 16:39 oxycodone HCl [From Percocet] Allergy Verified 09/28/16 16:39 - Home Medications Home Medications: Ambulatory Orders Levothyroxine [Synthroid -] 100 mcg PO DAILY 10/11/12 Pregabalin [Lyrica] 75 mg PO DAILY #0 capsule 02/27/13 Metoprolol Succinate [Toprol XL -] 50 mg PO ASDIR 03/09/15 Acetaminophen [Tylenol .Regular Strength -] 650 mg PO Q6H PRN #0 tablet Multivitamin/Iron/Folic Acid [Daily Vitamin Formula-Iron Tab] 1 each PO DAILY Simethicone [Mylicon -] 80 mg PO Q4H PRN #60 tab.chew 03/23/16 Sertraline HCl [Zoloft -] 50 mg PO DAILY 07/12/16 Ipratropium 0.02% Nebulizer [Atrovent 0.02% Nebulizer -] 1 amp NEB QID PRN 07/30 Midodrine HCl [Proamatine -] 20 mg PO MoWeFr@10 tablet 08/06/16 Sevelamer Carbonate [Renvela -] 800 mg PO TIDCM tab 08/06/16 Warfarin Sodium [Coumadin] 2 mg PO DAILY #30 tablet 08/07/16 Folic Acid/Vit Bcomp,C [Cassie-Mahendra Tablet] 0.8 mg PO DAILY 09/28/16 Ipratropium 0.02% Nebulizer [Atrovent] 1 neb NEB DAILY 09/28/16 Omeprazole 20 mg PO DAILY 09/28/16 Ondansetron HCl 4 mg PO PRN 09/28/16 Physical Exam Vital Signs: Vital Signs Temperature 97.8 F 09/29/16 15:00 Pulse Rate 80 09/29/16 15:00 Respiratory Rate 20 09/29/16 15:00 Blood Pressure 107/52 09/29/16 15:00 O2 Sat by Pulse Oximetry (%) 96 09/29/16 09:12 Constitutional: Yes: No Distress Extremities: Yes: Other (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 Lateral to the vein is a graft with weak pulse. Soft bruit present.) Labs: CBC, BMP 09/29/16 11:00 Imaging - Results Ultrasound: Image Reviewed (Patent left arm graft with volume flow > 1000 cc/min ) Problem List - Problems (1) ESRD on dialysis Assessment/Plan: Patent access graft whih should be used for dialysis access. Please call if new problems arise. Code(s): N18.6 - END STAGE RENAL DISEASE Z99.2 - DEPENDENCE ON RENAL DIALYSIS
[2016-09-29] MEDS: PANTOPRAZOLE SODIUM 80 MG in SODIUM CHLORIDE 100 ML IVPB SCH (19:16)
[2016-09-29] MEDS: ZOLPIDEM TARTRATE 5 MG TABLET PO PRN (23:52)
[2016-09-30] MEDS: PANTOPRAZOLE SODIUM 80 MG in SODIUM CHLORIDE 100 ML IVPB SCH ×3 (00:05→10:18)
[2016-09-30 02:47] LABS: TROPONIN I 0.17 ng/ml (0.00-0.05)
[2016-09-30 02:50] LABS: TROPONIN I 0.18 ng/ml (0.00-0.05)
[2016-09-30] MEDS: LEVOTHYROXINE NA 100 MCG TABLET (FP) PO SCH (06:02)
[2016-09-30 07:12] LABS: BASOPHIL 0.4 % (0-2.0); EOSINOPHIL 0.6 % (0-4.5); MCH 31.1 pg (25.7-33.7); MCHC 33.9 g/dl (32.0-36.0); MEAN CELL VOLUME 91.6 fl (80-96); MEAN PLT VOLUME 9.2 fl (7.5-11.1); NEUTROPHILS 75.9 % (42.8-82.8); PLATELET COUNT 113 K/MM3 (134-434)
[2016-09-30 07:39] LABS: INR 2.86 (0.82-1.09); PROTHROMBIN TIME (PATIENT) 32.1 SEC (9.98-11.88)
[2016-09-30 07:44] LABS: CALCIUM 8.7 mg/dL (8.5-10.1); CREATININE 4.4 mg/dL (0.55-1.02)
--- NOTE | 2016-09-30 08:05 | PN ---
Progress Note (short form) - Note Progress Note: SUBJECTIVE: Patient seen and examined. Chart reviewed. Comfortable. Denies chest pain. Breathing is stable. OBJECTIVE: Vital Signs 09/30/16 09/30/16 09/30/16 01:53 06:00 08:32 Temperature 97.5 F L 98 F 98.1 F Pulse Rate 55 L 69 68 Respiratory 20 18 18 Rate Blood Pressure 112/48 126/72 106/45 Intake & Output 09/29/16 09/30/16 09/30/16 23:59 07:59 15:59 Intake Total 370 70 Balance 370 70 Weight 62.766 kg Active Medications Acetaminophen (Tylenol -) 650 mg PO Q6H PRN PRN Reason: FEVER OR PAIN Last Admin: 09/30/16 09:25 Dose: 650 mg Pantoprazole Sodium 80 mg/ (Sodium Chloride) 100 mls @ 10 mls/hr IVPB Q10H [facility] PRN Reason: 8 MG/HR Last Admin: 09/30/16 09:21 Dose: 10 mls/hr Ipratropium [place] (Atrovent 0.02% Nebulizer -) 1 amp NEB QID PRN PRN Reason: SHORTNESS OF BREATH Levothyroxine Sodium (Synthroid -) 100 mcg PO DAILY@0700 [facility] Last Admin: 09/30/16 06:02 Dose: 100 mcg Midodrine (Proamatine -) 10 mg PO MoWeFr@10 [facility] Last Admin: 09/30/16 09:21 Dose: 10 mg Zolpidem Tartrate (Ambien -) 5 mg PO HS PRN PRN Reason: INSOMNIA Last Admin: 09/29/16 23:52 Dose: 5 mg CBC, BMP 09/30/16 05:35 09/30/16 05:35 Laboratory Results - last 24 hr 09/28/16 09/29/16 09/29/16 17:08 11:00 23:00 WBC 6.7 D RBC 2.30 L Hgb 7.0 L Hct 21.6 L MCV 93.8 MCHC 32.3 RDW 17.3 H Plt Count 115 L MPV 9.4 Neutrophils % Lymphocytes % Monocytes % Eosinophils % Basophils % INR Sodium Potassium Chloride Carbon Dioxide Anion Gap BUN Creatinine Random Glucose Calcium Creatine Kinase 40 Troponin I 0.18 H Blood Type O NEGATIVE Antibody Screen Negative Crossmatch See Detail 09/30/16 09/30/1609/30/17 01:30 05:35 05:35 WBC 6.0 RBC 2.49 L Hgb 7.7 L Hct 22.8 L MCV 91.6 MCHC 33.9 RDW 16.0 H Plt Count 113 L MPV 9.2 Neutrophils % 75.9 Lymphocytes % 13.1 D Monocytes % 10.0 Eosinophils % 0.6 Basophils % 0.4 INR Sodium 138 Potassium 4.1 Chloride 99 Carbon Dioxide 25 Anion Gap 14 BUN 90 H D Creatinine 4.4 H Random Glucose 130 H Calcium 8.7 Creatine Kinase 38 Troponin I 0.17 H Blood Type Antibody Screen Crossmatch 09/30/16 05:35 WBC RBC Hgb Hct MCV MCHC RDW Plt Count MPV Neutrophils % Lymphocytes % Monocytes % Eosinophils % Basophils % INR 2.86 H Sodium Potassium Chloride Carbon Dioxide Anion Gap BUN Creatinine Random Glucose Calcium Creatine Kinase Troponin I Blood Type Antibody Screen Crossmatch PHYSICAL EXAMINATION: Constitutional: Yes: No Distress, Calm Cardiovascular: Yes: Irregular Rate and Rhythm Respiratory: Yes: Diminished Gastrointestinal: Yes: Normal Bowel Sounds, Soft, Tenderness (epigastric). No: Distention Edema: No Psychiatric: Yes: Alert, Oriented Problem List - Problems (1) Anemia Code(s): D64.9 - ANEMIA, UNSPECIFIED Qualifiers: Iron deficiency anemia type: chronic blood loss (2) ESRD on hemodialysis Code(s): N18.6 - END STAGE RENAL DISEASE Z99.2 - DEPENDENCE ON RENAL DIALYSIS (3) GI bleed Code(s): K92.2 - GASTROINTESTINAL HEMORRHAGE, UNSPECIFIED Qualifiers: GI bleed type/associated pathology: melena Qualified Code(s): K92.1 - Melena (4) Abdominal pain Code(s): R10.9 - UNSPECIFIED ABDOMINAL PAIN Qualifiers: Abdominal location: left upper quadrant Qualified Code(s): R10.12 - Left upper quadrant pain (5) Atrial flutter Code(s): I48.92 - UNSPECIFIED ATRIAL FLUTTER Qualifiers: Atrial flutter type: typical Qualified Code(s): I48.3 - Typical atrial flutter (6) Troponin level elevated Code(s): R79.89 - OTHER SPECIFIED ABNORMAL FINDINGS OF BLOOD CHEMISTRY ASSESSMENT & PLAN: - Hemo-dialysis today. - Transfuse 2 unites of PRBCs with dialysis. - EGD scheduled afterwards. - Patient is medically cleared for procedure but needs Cardiology clearance. - Cardiology to follow. - Will follow. Documentation prepared by Yamila Rosa, acting as a durable medical equipment repairer for Norma rOopeza MD.
[2016-09-30 08:16] LABS: COCKROFT - GAULT 8.755
[2016-09-30] MEDS ORDERED: EPOETIN ALFA 20,000 UNIT/1 ML VIAL SQ ONE (09:00)
[2016-09-30] MEDS: MIDODRINE HCL 5 MG TABLET PO SCH (09:21)
[2016-09-30] MEDS: ACETAMINOPHEN 325 MG TABLET (FP) PO PRN (09:25)
[2016-09-30] MEDS ORDERED: MIDODRINE HCL 5 MG TABLET PO SCH (10:00)
[2016-09-30 11:00] LABS: PHOSPHOROUS 2.4 mg/dL (2.5-4.9)
--- NOTE | 2016-09-30 11:09 | PN ---
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 No history of chest pain or discomfort, had dyspnea prior to admission. Patient is scheduled to undergo an endoscopy and presently is undergoing dialysis. Patient continues to be severely anemic and is to undergo transfusion of 2 units of pack cells. Active Medications Generic Name Dose Route Start Last Admin Trade Name Freq PRN Reason Stop Dose Admin Acetaminophen 650 mg 09/29/16 09:55 09/30/16 09:25 Tylenol - PO 650 mg Q6H PRN Administration FEVER OR PAIN Pantoprazole Sodium 80 mg/ 100 mls @ 10 mls/hr 09/29/16 14:30 09/30/16 10:18 Sodium Chloride IVPB Not Given Q10H LINDA 8 MG/HR Ipratropium [place] 1 amp 09/29/16 09:55 Atrovent 0.02% Nebulizer - NEB QID PRN SHORTNESS OF BREATH Levothyroxine Sodium 100 mcg 09/29/16 10:52 09/30/16 06:02 Synthroid - PO 100 mcg DAILY@0700 LINDA Administration Midodrine 10 mg 09/30/16 10:00 09/30/16 09:21 Proamatine - PO 10 mg MoWeFr@10 LINDA Administration Zolpidem Tartrate 5 mg 09/29/16 23:14 09/29/16 23:52 Ambien - PO 5 mg HS PRN Administration INSOMNIA O: 89 year old female was in no acute distress, pallor +, no cyanosis, clubbing , or jaundice. Last Vital Signs Temp Pulse Resp BP Pulse Ox 98.1 F 68 irregular 18 106/45 98 09/30/16 08:32 09/30/16 08:32 09/30/16 08:32 09/30/16 08:32 09/30/16 08:00 Neck: Supple, no JVD, negative HJR, carotids were equal and upstrokes were normal, no thyromegaly appreciated. Heart: PMI was in the 5th intercostal space, no heaves or thrills, S1 and S2 were normal. Grade II/ ejection systolic murmur along the second right ICS and left sternal border. Grade II/ decresendo was heard at the apex. No gallops were appreciated. Lungs: Fine crepitations at the right base posteriorly. Abdomen: Soft, nontender, no hepatosplenomegaly appreciated, and no palpable masses were felt. Extremities: No calf tenderness, 2+ bilateral pretibial dependent edema. AV fistula left upper extremity. CBC, BMP 09/30/16 05:35 09/30/16 05:35 Laboratory Results - last 24 hr 09/28/16 09/29/16 09/29/16 17:08 11:00 23:00 WBC 6.7 D RBC 2.30 L Hgb 7.0 L Hct 21.6 L MCV 93.8 MCHC 32.3 RDW 17.3 H Plt Count 115 L MPV 9.4 Neutrophils % Lymphocytes % Monocytes % Eosinophils % Basophils % INR Sodium Potassium Chloride Carbon Dioxide Anion Gap BUN Creatinine Random Glucose Calcium Phosphorus Creatine Kinase 40 Troponin I 0.18 H Blood Type O NEGATIVE Antibody Screen Negative Crossmatch See Detail 09/30/16 09/30/16 09/30/16 01:30 05:35 05:35 WBC 6.0 RBC 2.49 L Hgb 7.7 L Hct 22.8 L MCV 91.6 MCHC 33.9 RDW 16.0 H Plt Count 113 L MPV 9.2 Neutrophils % 75.9 Lymphocytes % 13.1 D Monocytes % 10.0 Eosinophils % 0.6 Basophils % 0.4 INR Sodium 138 Potassium 4.1 Chloride 99 Carbon Dioxide 25 Anion Gap 14 BUN 90 H D Creatinine 4.4 H Random Glucose 130 H Calcium 8.7 Phosphorus 2.4 L Creatine Kinase 38 Troponin I 0.17 H Blood Type Antibody Screen Crossmatch 09/30/16 09/30/16 05:35 05:35 WBC RBC Hgb Hct MCV MCHC RDW Plt Count MPV Neutrophils % Lymphocytes % Monocytes % Eosinophils % Basophils % INR 2.86 H Sodium Potassium Chloride Carbon Dioxide Anion Gap BUN Creatinine Random Glucose Calcium Phosphorus Cancelled Creatine Kinase Troponin I Blood Type Antibody Screen Crossmatch Impression: (1) GI bleed Code(s): K92.2 - GASTROINTESTINAL HEMORRHAGE, UNSPECIFIED Qualifiers: GI bleed type/associated pathology: melena Qualified Code(s): K92.1 - Melena (2) Anemia Code(s): D64.9 - ANEMIA, UNSPECIFIED Qualifiers: Iron deficiency anemia type: chronic blood loss (3) ESRD on hemodialysis Code(s): N18.6 - END STAGE RENAL DISEASE Z99.2 - DEPENDENCE ON RENAL DIALYSIS (4) Aortic stenosis Code(s): I35.0 - NONRHEUMATIC AORTIC (VALVE) STENOSIS Qualifiers: Cardiac valve disease etiology: nonrheumatic Qualified Code(s): I35.0 - Nonrheumatic aortic (valve) stenosis (5) Atrial flutter Code(s): I48.92 - UNSPECIFIED ATRIAL FLUTTER Qualifiers: Atrial flutter type: typical Qualified Code(s): I48.3 - Typical atrial flutter (6) CAD (coronary artery disease) Code(s): I25.10 - ATHSCL HEART DISEASE OF [place] CORONARY ARTERY W/O ANG PCTRS Qualifiers: Coronary Disease-Associated Artery/Lesion type: [place] artery [place] vs. transplanted heart: [place] heart Associated angina: without angina Qualified Code(s): I25.10 - Atherosclerotic heart disease of [place] coronary artery without angina pectoris (7) Diabetes Mellitus with multi system involvement Code(s): E11.9 - TYPE 2 DIABETES MELLITUS WITHOUT COMPLICATIONS Qualifiers: Diabetes mellitus type: type 2 Diabetes mellitus complication status: without complication Diabetes mellitus manager terminal insulin use: without long-term use Qualified Code(s): E11.9 - Type 2 diabetes mellitus without complications (8) GERD (gastroesophageal reflux disease) Code(s): K21.9 - GASTRO-ESOPHAGEAL REFLUX DISEASE WITHOUT ESOPHAGITIS Qualifiers: Esophagitis presence: esophagitis presence not specified Qualified Code(s): K21.9 - Gastro-esophageal reflux disease without esophagitis (9) History of percutaneous coronary intervention Code(s): Z98.89 - OTHER SPECIFIED POSTPROCEDURAL STATES * DO NOT USE * (10) Hyperlipidemia Code(s): E78.5 - HYPERLIPIDEMIA, UNSPECIFIED Qualifiers: Hyperlipidemia type: pure hypercholesterolemia Qualified Code(s): E78.00 - Pure hypercholesterolemia, unspecified; E78.0 - Pure hypercholesterolemia (11) Hypothyroidism Code(s): E03.9 - HYPOTHYROIDISM, UNSPECIFIED Qualifiers: Hypothyroidism type: unspecified Qualified Code(s): E03.9 - Hypothyroidism, unspecified (12) Hypertension Code(s): I10 - ESSENTIAL (PRIMARY) HYPERTENSION (13) Single implantable cardioverter-defibrillator (ICD) in situ Code(s): Z95.810 - PRESENCE OF AUTOMATIC (IMPLANTABLE) CARDIAC DEFIBRILLATOR (14) Subendocardial ischemia Code(s): I24.8 - OTHER FORMS OF ACUTE ISCHEMIC HEART DISEASE (15) Systolic dysfunction without heart failure Code(s): I51.9 - HEART DISEASE, UNSPECIFIED (16) Troponin level elevated (Most likely related to ESRD and possibly related to demand ischemia.) Code(s): R79.89 - OTHER SPECIFIED ABNORMAL FINDINGS OF BLOOD CHEMISTRY Recommendations: 1. There appears to be no absolute contra indication to the contemplated procedure (endoscopy). 2. Patient is at a higher risk for cardio pulmonary event due to multiple comorbid conditions. 3. Please note INR of 2.86. 4. Close cardio pulmonary monitoring. Attestation: Documentation prepared by Jarred Galloway, acting as medical sonographer for Brian Johnson MD.
--- NOTE | 2016-09-30 13:45 | PN ---
Progress Note (short form) - Note Progress Note: Cassie Follow up for ESRD on HD Pt seen and examined during dialysis Goal UF is 1.5-2L will transfuse 2 units pRBC with HD pt without any acute complaints Vital Signs Temperature 98.8 F 09/30/16 12:10 Pulse Rate 61 09/30/16 13:15 Respiratory Rate 18 09/30/16 13:15 Blood Pressure 128/55 09/30/16 13:15 O2 Sat by Pulse Oximetry (%) 98 09/30/16 08:00 Intake & Output 09/27/16 09/28/16 09/29/16 09/30/16 23:59 23:59 23:59 23:59 Intake Total 620 70 Balance 620 70 Weight 145 lb 144 lb 15.968 oz 138 lb 6 oz Gen: NAD, awake and alert HEENT: NC/AT, MMM, No JVD, Neck supple CVS: RRR, No M/R Lungs: CTA, no rales or wheeze Abd: soft NT/ND Ext: No edema, clubbing or cyanosis Acess: + bruit with pulseation (exam done before dialysis) Neuro: No focal defects CBC, BMP 09/30/16 05:35 09/30/16 05:35 Current Medications Acetaminophen (Tylenol -) 650 mg PO Q6H PRN PRN Reason: FEVER OR PAIN Last Admin: 09/30/16 09:25 Dose: 650 mg Pantoprazole Sodium 80 mg/ (Sodium Chloride) 100 mls @ 10 mls/hr IVPB Q10H LINDA PRN Reason: 8 MG/HR Last Admin: 09/30/16 10:18 Dose: Not Given Ipratropium [place] (Atrovent 0.02% Nebulizer -) 1 amp NEB QID PRN PRN Reason: SHORTNESS OF BREATH Levothyroxine Sodium (Synthroid -) 100 mcg PO DAILY@0700 [facility] Last Admin: 09/30/16 06:02 Dose: 100 mcg Midodrine (Proamatine -) 10 mg PO MoWeFr@10 [facility] Last Admin: 09/30/16 09:21 Dose: 10 mg Zolpidem Tartrate (Ambien -) 5 mg PO HS PRN PRN Reason: INSOMNIA Last Admin: 09/29/16 23:52 Dose: 5 mg A/P 89 year old woman with PMhx of ESRD on HD (MWF), DM Type 2, CAD, Hypothyroidism , Anemia, Renal Osteodystrophy, who presented with weakness and found to have acute on chronic anemia with GI bleed. #ESRD on HD Graft was able to be used yesterday evening for dialysis tolerating dialysis well today will transfuse 2 units prbc with HD #GI bleed with acute anemia 2 more PRBC to be given with HD for EGD as per GI #Hypophosphatemia holding all phos binders given Neutraphos once pt is no longer NPO #Hypotension Continue Midodrine before dialysis #Afib on Coumadin holding A/C for now Cardiology follow up Yahir Cortez DO
[2016-09-30] MEDS: NAPH,MB-DB/K PH,MBDB POWDER PACKET PO SCH ×2 (15:13→21:43)
[2016-09-30] MEDS ORDERED: ETOMIDATE 20 MG/10 ML AMPUL IVPUSH ONE (16:19)
[2016-09-30] MEDS ORDERED: MIDAZOLAM HCL 2 MG/2 ML SINGLE DOSE VIAL ONE ×2 (16:19)
[2016-09-30] MEDS ORDERED: ePHEDrine SULFATE 50 MG/1 ML AMPULE ONE (16:20)
[2016-09-30] MEDS ORDERED: PHENYLEPHRINE HCL 10 MG/1 ML SINGLE DOSE VIAL ONE (16:20)
--- NOTE | 2016-09-30 16:51 | PN ---
Progress Note (short form) - Note Progress Note: GI Procedure NOte: Please see EGD report. A prepyloric gastric ulcer was found which is not actively bleeding. Biopsies could not be taken as Eloisa is still partially A/C'ed. Will advance diet and order PPI BID. I have discussed the findings with Eloisa and advised a repeat EGD after 3 months on uninterrupted PPI therapy.
[2016-09-30 19:43] LABS: PHOSPHOROUS 2.4 mg/dL (2.5-4.9)
[2016-09-30] MEDS: ZOLPIDEM TARTRATE 5 MG TABLET PO PRN (21:43)
[2016-09-30] MEDS: PANTOPRAZOLE 40 MG TABLET (FP) PO SCH (21:43)
[2016-10-01] MEDS: NAPH,MB-DB/K PH,MBDB POWDER PACKET PO SCH ×3 (06:29→21:36)
[2016-10-01] MEDS: LEVOTHYROXINE NA 100 MCG TABLET (FP) PO SCH (06:30)
[2016-10-01 07:42] LABS: BASOPHIL 0.3 % (0-2.0); EOSINOPHIL 0.2 % (0-4.5); MCH 31.2 pg (25.7-33.7); MCHC 34.3 g/dl (32.0-36.0); MEAN PLT VOLUME 9.2 fl (7.5-11.1); NEUTROPHILS 75.8 % (42.8-82.8); PLATELET COUNT 105 K/MM3 (134-434); RDW 16.5 % (11.6-15.6); WHITE BLOOD COUNT 6.7 K/mm3 (4.0-10.0)
[2016-10-01 08:29] LABS: CALCIUM 8.6 mg/dL (8.5-10.1); COCKROFT - GAULT 10.3785; CREATININE 3.6 mg/dL (0.55-1.02); MAGNESIUM 1.9 mg/dL (1.8-2.4); PHOSPHOROUS 2.8 mg/dL (2.5-4.9)
--- NOTE | 2016-10-01 10:40 | PN ---
Progress Note (short form) - Note Progress Note: pt seen/ examined sitting in chair family at bedside had episode of rectal bleed this morning denies pain s/p egd yesterday--findings noted got 2 unit with dialysis yesterday Vital Signs Temp 98.6 F 10/01/16 02:14 Pulse 89 10/01/16 02:14 Resp 18 10/01/16 02:14 BP 118/54 10/01/16 02:14 Pulse Ox 100 09/30/16 21:00 Intake & Output 09/30/16 09/30/16 10/01/16 11:59 23:59 11:59 Intake Total 120 370 Balance 120 370 Weight 138 lb 6 oz 134 lb 3.2 oz Intake: IV 50 IVPB 70 Oral 250 Tube Feeding 120 Other: Voiding Method Toilet Toilet Weight Measurement Method Standing Scale Standing Scale Active Medications Acetaminophen (Tylenol -) 650 mg PO Q6H PRN PRN Reason: FEVER OR PAIN Last Admin: 09/30/16 09:25 Dose: 650 mg Ipratropium [place] (Atrovent 0.02% Nebulizer -) 1 amp NEB QID PRN PRN Reason: SHORTNESS OF BREATH Levothyroxine Sodium (Synthroid -) 100 mcg PO DAILY@0700 [facility] Last Admin: 10/01/16 06:30 Dose: 100 mcg Midodrine (Proamatine -) 10 mg PO MoWeFr@10 [facility] Last Admin: 09/30/16 09:21 Dose: 10 mg Pantoprazole Sodium (Protonix -) 40 mg PO BID [facility] Last Admin: 09/30/16 21:43 Dose: 40 mg Potassium Phos/Sodium Phos (Phos-Nak Packet -) 1 packet PO TID [facility] Stop: 10/02/16 06:01 Last Admin: 10/01/16 06:29 Dose: 1 packet Zolpidem Tartrate (Ambien -) 5 mg PO HS PRN PRN Reason: INSOMNIA Last Admin: 09/30/16 21:43 Dose: 5 mg CBC, BMP 10/01/16 05:35 10/01/16 05:35 PHYSICAL EXAMINATION: Constitutional: Yes: No Distress, Calm/ comfortable Cardiovascular: Yes: Irregular Rate and Rhythm Respiratory: Yes: Diminished at bases Gastrointestinal: Yes: Normal Bowel Sounds, Soft, Edema: No Psychiatric: Yes: Alert, Oriented Problem List - Problems (1) Anemia Code(s): D64.9 - ANEMIA, UNSPECIFIED Qualifiers: Iron deficiency anemia type: chronic blood loss (2) ESRD on hemodialysis Code(s): N18.6 - END STAGE RENAL DISEASE Z99.2 - DEPENDENCE ON RENAL DIALYSIS (3) GI bleed Code(s): K92.2 - GASTROINTESTINAL HEMORRHAGE, UNSPECIFIED Qualifiers: GI bleed type/associated pathology: melena Qualified Code(s): K92.1 - Melena (4) Abdominal pain Code(s): R10.9 - UNSPECIFIED ABDOMINAL PAIN Qualifiers: Abdominal location: left upper quadrant Qualified Code(s): R10.12 - Left upper quadrant pain (5) Atrial flutter Code(s): I48.92 - UNSPECIFIED ATRIAL FLUTTER Qualifiers: Atrial flutter type: typical Qualified Code(s): I48.3 - Typical atrial flutter (6) Troponin level elevated Code(s): R79.89 - OTHER SPECIFIED ABNORMAL FINDINGS OF BLOOD CHEMISTRY ASSESSMENT & PLAN: - overall stable - monitor for bleeding -- s/p egd--repeat to be done in 3 months - f/u labs -discussed with pts family - will monitor - discussed with nursing staff also - gi to follow
[2016-10-01] MEDS: PANTOPRAZOLE 40 MG TABLET (FP) PO SCH ×2 (10:43→21:36)
--- NOTE | 2016-10-01 11:01 | PN ---
Progress Note, Physician Chief Complaint: The patient seen in her bed. Awake, alert. No pains. No active bleeding any more. But still with black stool. Family visiting. Had uneventful dialysis yesterday. - Current Medication List Current Medications: Active Medications Acetaminophen (Tylenol -) 650 mg PO Q6H PRN PRN Reason: FEVER OR PAIN Last Admin: 09/30/16 09:25 Dose: 650 mg Ipratropium [place] (Atrovent 0.02% Nebulizer -) 1 amp NEB QID PRN PRN Reason: SHORTNESS OF BREATH Levothyroxine Sodium (Synthroid -) 100 mcg PO DAILY@0700 [facility] Last Admin: 10/01/16 06:30 Dose: 100 mcg Midodrine (Proamatine -) 10 mg PO MoWeFr@10 [facility] Last Admin: 09/30/16 09:21 Dose: 10 mg Pantoprazole Sodium (Protonix -) 40 mg PO BID [facility] Last Admin: 10/01/16 10:43 Dose: 40 mg Potassium Phos/Sodium Phos (Phos-Nak Packet -) 1 packet PO TID [facility] Stop: 10/02/16 06:01 Last Admin: 10/01/16 06:29 Dose: 1 packet Zolpidem Tartrate (Ambien -) 5 mg PO HS PRN PRN Reason: INSOMNIA Last Admin: 09/30/16 21:43 Dose: 5 mg - Objective Vital Signs: Vital Signs Temperature 98.6 F 10/01/16 02:14 Pulse Rate 89 10/01/16 02:14 Respiratory Rate 18 10/01/16 02:14 Blood Pressure 118/54 10/01/16 02:14 O2 Sat by Pulse Oximetry (%) 100 09/30/16 21:00 Constitutional: Yes: No Distress, Anxious Eyes: Yes: Conjunctiva Clear HENT: Yes: Normocephalic Cardiovascular: Yes: S1, S2 Respiratory: Yes: CTA Bilaterally. No: Rales, Rhonchi Gastrointestinal: Yes: Soft. No: Hypoactive Bowel Sounds Edema: Yes Edema: LLE: 2+, RLE: 2+ Labs: CBC, BMP 10/01/16 05:35 10/01/16 05:35 INR, PTT INR 2.86 (0.82-1.09) H 09/30/16 05:35 Problem List - Problems (1) Anemia Code(s): D64.9 - ANEMIA, UNSPECIFIED Qualifiers: Iron deficiency anemia type: chronic blood loss (2) ESRD on hemodialysis Code(s): N18.6 - END STAGE RENAL DISEASE Z99.2 - DEPENDENCE ON RENAL DIALYSIS (3) GI bleed Code(s): K92.2 - GASTROINTESTINAL HEMORRHAGE, UNSPECIFIED Qualifiers: GI bleed type/associated pathology: melena Qualified Code(s): K92.1 - Melena (4) Abdominal pain Code(s): R10.9 - UNSPECIFIED ABDOMINAL PAIN Qualifiers: Abdominal location: left upper quadrant Qualified Code(s): R10.12 - Left upper quadrant pain (5) Aortic stenosis Code(s): I35.0 - NONRHEUMATIC AORTIC (VALVE) STENOSIS Qualifiers: Cardiac valve disease etiology: nonrheumatic Qualified Code(s): I35.0 - Nonrheumatic aortic (valve) stenosis (6) CAD (coronary artery disease) Code(s): I25.10 - ATHSCL HEART DISEASE OF [place] CORONARY ARTERY W/O ANG PCTRS Qualifiers: Coronary Disease-Associated Artery/Lesion type: [place] artery [place] vs. 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 Endoscopy revealed a Pre-pyloric gastric ulcer. No active bleeding was noted. Possibly the bleeding stopped. Hgb/Hct stable. Will observe. No HD today. Next HD scheduled for Monday. Shelli Bacon MD
--- NOTE | 2016-10-01 12:16 | EKG ---
Test Reason : Blood Pressure : / mmHG Vent. 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
--- NOTE | 2016-10-01 13:40 | PN ---
Progress Note, Physician Chief Complaint: Events noted Episode of what appears to be rectal bleed this morning History of Present Illness: Patient was seen and examined. Awake and alert. Chart was reviewed Denies chest pain, SOB or palpitations - Current Medication List Current Medications: Active Medications Acetaminophen (Tylenol -) 650 mg PO Q6H PRN PRN Reason: FEVER OR PAIN Last Admin: 09/30/16 09:25 Dose: 650 mg Ipratropium [place] (Atrovent 0.02% Nebulizer -) 1 amp NEB QID PRN PRN Reason: SHORTNESS OF BREATH Levothyroxine Sodium (Synthroid -) 100 mcg PO DAILY@0700 [facility] Last Admin: 10/01/16 06:30 Dose: 100 mcg Midodrine (Proamatine -) 10 mg PO MoWeFr@10 [facility] Last Admin: 09/30/16 09:21 Dose: 10 mg Pantoprazole Sodium (Protonix -) 40 mg PO BID [facility] Last Admin: 10/01/16 10:43 Dose: 40 mg Potassium Phos/Sodium Phos (Phos-Nak Packet -) 1 packet PO TID [facility] Stop: 10/02/16 06:01 Last Admin: 10/01/16 06:29 Dose: 1 packet Zolpidem Tartrate (Ambien -) 5 mg PO HS PRN PRN Reason: INSOMNIA Last Admin: 09/30/16 21:43 Dose: 5 mg - Objective Vital Signs: Vital Signs Temperature 97.8 F 10/01/16 12:21 Pulse Rate 99 H 10/01/16 12:21 Respiratory Rate 18 10/01/16 12:21 Blood Pressure 115/60 10/01/16 12:21 O2 Sat by Pulse Oximetry (%) 100 10/01/16 09:00 Neck: Yes: Supple Cardiovascular: Yes: Regular Rate and Rhythm, Murmur (Soft SM), S1, S2 Respiratory: Yes: Diminished Gastrointestinal: Yes: Normal Bowel Sounds, Soft, Rectal Bleeding. No: Tenderness Edema: No Additional Findings/Remarks: - Review of Systems Constitutional: denies: Chills, Fever Cardiovascular: denies: Shortness of Breath. denies: Chest Pain, Palpitations Respiratory: denies: SOB, SOB on Exertion. denies: Cough, Hemoptysis, Orthopnea , PND, Wheezing Gastrointestinal: denies: Abdominal Pain, Constipation, Diarrhea, (+) Melena, denies:Nausea, Vomiting Genitourinary: denies: Dysuria Musculoskeletal: denies: Joint Pain Neurological: denies: Unsteady Gait, Weakness. denies: Dizziness, Headache, Numbness, Seizure, Syncope Labs: CBC, BMP 10/01/16 05:35 10/01/16 05:35 INR, PTT INR 2.86 (0.82-1.09) H 09/30/16 05:35 Problem List - Problems (1) Anemia Code(s): D64.9 - ANEMIA, UNSPECIFIED Qualifiers: Iron deficiency anemia type: chronic blood loss (2) ESRD on hemodialysis Code(s): N18.6 - END STAGE RENAL DISEASE Z99.2 - DEPENDENCE ON RENAL DIALYSIS (3) GI bleed Code(s): K92.2 - GASTROINTESTINAL HEMORRHAGE, UNSPECIFIED Qualifiers: GI bleed type/associated pathology: melena Qualified Code(s): K92.1 - Melena (4) Acute on chronic systolic and diastolic heart failure, NYHA class 3 Code(s): I50.43 - ACUTE ON CHRONIC COMBINED SYSTOLIC AND DIASTOLIC HRT FAIL (5) Aortic stenosis Code(s): I35.0 - NONRHEUMATIC AORTIC (VALVE) STENOSIS Qualifiers: Cardiac valve disease etiology: nonrheumatic Qualified Code(s): I35.0 - Nonrheumatic aortic (valve) stenosis (6) Atrial flutter Code(s): I48.92 - UNSPECIFIED ATRIAL FLUTTER Qualifiers: Atrial flutter type: typical Qualified Code(s): I48.3 - Typical atrial flutter (7) CAD (coronary artery disease) Code(s): I25.10 - ATHSCL HEART DISEASE OF [place] CORONARY ARTERY W/O ANG PCTRS Qualifiers: Coronary Disease-Associated Artery/Lesion type: [place] artery [place] vs. 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 use: without chcf use Qualified Code(s): E11.9 - Type 2 diabetes mellitus without complications (9) End stage kidney disease Code(s): N18.6 - END STAGE RENAL DISEASE (10) HTN (hypertension) Code(s): I10 - ESSENTIAL (PRIMARY) HYPERTENSION Qualifiers: Hypertension type: renovascular hypertension Qualified Code(s): I15.0 - Renovascular hypertension (11) History of percutaneous coronary intervention Code(s): Z98.89 - OTHER SPECIFIED POSTPROCEDURAL STATES * DO NOT USE * (12) Hyperlipidemia Code(s): E78.5 - HYPERLIPIDEMIA, UNSPECIFIED Qualifiers: Hyperlipidemia type: pure hypercholesterolemia Qualified Code(s): E78.00 - Pure hypercholesterolemia, unspecified; E78.0 - Pure hypercholesterolemia (13) Hypothyroidism (acquired) Code(s): E03.9 - HYPOTHYROIDISM, UNSPECIFIED (14) Single implantable cardioverter-defibrillator (ICD) in situ Code(s): Z95.810 - PRESENCE OF AUTOMATIC (IMPLANTABLE) CARDIAC DEFIBRILLATOR (15) Subendocardial ischemia Code(s): I24.8 - OTHER FORMS OF ACUTE ISCHEMIC HEART DISEASE (16) Troponin level elevated Code(s): R79.89 - OTHER SPECIFIED ABNORMAL FINDINGS OF BLOOD CHEMISTRY Assessment/Plan 1. Hiatal hernia and gastric ulcer on EGD - still has black colored stool this morning 2. Paroxysmal atrial fibrillation/flutter in sinus with therapeutic INR 3. 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 Elevated troponin - subendocardial ischemia 5. CAD, s/p PCI/stent, angina 6. 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 Type 2 DM 8. Hypercholesterolemia 9. Mild aortic valve stenosis and aortic vavle regurgitation 10. Anemia and thrombocytopenia 11. Hypothyroidism PLAN: 1. Coumadin being held until further instruction 2. Cardiac meds on hold (Metoprolol) until further instruction 3. ICD interrogation as outpatient 4. HD as per renal service - transfusion PRBC as tolerated 5. GI protection, await further GI input Further plans are to follow Len Guevara MD
--- NOTE | 2016-10-01 14:00 | PN ---
GI Progress Note Subjective: GI NOte: Had black BM today but Hb is 10. Suspect old blood. No diaphoresis - Objective Vital Signs: Vital Signs Temperature 97.8 F 10/01/16 12:21 Pulse Rate 99 H 10/01/16 12:21 Respiratory Rate 18 10/01/16 12:21 Blood Pressure 115/60 10/01/16 12:21 O2 Sat by Pulse Oximetry (%) 100 10/01/16 09:00 Constitutional: Calm ...Auscultate: Yes: Normoactive Bowel Sounds ...Palpate: Yes: Soft, Other (nontender) Labs: CBC, BMP 10/01/16 05:35 10/01/16 05:35 INR, PTT INR 2.86 (0.82-1.09) H 09/30/16 05:35 Laboratory Tests 09/30/16 10/01/16 05:35 05:35 Hgb 7.7 L 10.2 L D Assessment/Plan Gastric ulcer bleed resolving. Would refrain from warfarin for another 48 hours
[2016-10-01] MEDS: ZOLPIDEM TARTRATE 5 MG TABLET PO PRN (21:36)
[2016-10-02] MEDS: LEVOTHYROXINE NA 100 MCG TABLET (FP) PO SCH (06:51)
[2016-10-02] MEDS: NAPH,MB-DB/K PH,MBDB POWDER PACKET PO SCH (06:51)
[2016-10-02 07:10] LABS: BASOPHIL 0.8 % (0-2.0); EOSINOPHIL 0.6 % (0-4.5); MCH 31.2 pg (25.7-33.7); MCHC 33.8 g/dl (32.0-36.0); MEAN CELL VOLUME 92.5 fl (80-96); MEAN PLT VOLUME 9.3 fl (7.5-11.1); NEUTROPHILS 70.4 % (42.8-82.8); PLATELET COUNT 99 K/MM3 (134-434); RDW 16.6 % (11.6-15.6); WHITE BLOOD COUNT 5.8 K/mm3 (4.0-10.0)
[2016-10-02 07:21] LABS: BILIRUBIN,TOTAL 0.8 mg/dL (0.2-1.0); CALCIUM 8.7 mg/dL (8.5-10.1); CREATININE 4.8 mg/dL (0.55-1.02); TOT PROT 5.9 g/dl (6.4-8.2)
[2016-10-02 07:22] LABS: INR 1.51 (0.82-1.09); PROTHROMBIN TIME (PATIENT) 16.7 SEC (9.98-11.88)
[2016-10-02 07:25] LABS: COCKROFT - GAULT 7.99
--- NOTE | 2016-10-02 08:59 | PN ---
Progress Note, Physician Chief Complaint: No further episodes of black stool History of Present Illness: Patient was seen and examined. Awake and alert. Chart was reviewed Denies chest pain, SOB or palpitations - Current Medication List Current Medications: Active Medications Acetaminophen (Tylenol -) 650 mg PO Q6H PRN PRN Reason: FEVER OR PAIN Last Admin: 09/30/16 09:25 Dose: 650 mg Ipratropium [place] (Atrovent 0.02% Nebulizer -) 1 amp NEB QID PRN PRN Reason: SHORTNESS OF BREATH Levothyroxine Sodium (Synthroid -) 100 mcg PO DAILY@0700 [facility] Last Admin: 10/02/16 06:51 Dose: 100 mcg Midodrine (Proamatine -) 10 mg PO MoWeFr@10 [facility] Last Admin: 09/30/16 09:21 Dose: 10 mg Pantoprazole Sodium (Protonix -) 40 mg PO BID [facility] Last Admin: 10/01/16 21:36 Dose: 40 mg Zolpidem Tartrate (Ambien -) 5 mg PO HS PRN PRN Reason: INSOMNIA Last Admin: 10/01/16 21:36 Dose: 5 mg - Objective Vital Signs: Vital Signs Temperature 98 F 10/02/16 06:00 Pulse Rate 95 H 10/02/16 06:00 Respiratory Rate 18 10/02/16 06:00 Blood Pressure 132/58 10/02/16 06:00 O2 Sat by Pulse Oximetry (%) 100 10/01/16 20:32 Neck: Yes: Supple Cardiovascular: Yes: Regular Rate and Rhythm, Murmur (2/6 LUIS MIGUEL at right intercostal space and soft SM apex), S1, S2 Respiratory: Yes: Diminished Gastrointestinal: Yes: Normal Bowel Sounds, Soft. No: Tenderness Edema: No Additional Findings/Remarks: - Review of Systems Constitutional: denies: Chills, Fever Cardiovascular: denies: Shortness of Breath. denies: Chest Pain, Palpitations Respiratory: denies: SOB, SOB on Exertion. denies: Cough, Hemoptysis, Orthopnea , PND, Wheezing Gastrointestinal: denies: Abdominal Pain, Constipation, Diarrhea, (+) Melena, denies:Nausea, Vomiting Genitourinary: denies: Dysuria Musculoskeletal: denies: Joint Pain Neurological: denies: Unsteady Gait, Weakness. denies: Dizziness, Headache, Numbness, Seizure, Syncope Labs: CBC, BMP 10/02/16 05:35 10/02/16 05:35 INR, PTT INR 1.51 (0.82-1.09) H D 10/02/16 05:35 Problem List - Problems (1) Anemia Code(s): D64.9 - ANEMIA, UNSPECIFIED Qualifiers: Iron deficiency anemia type: chronic blood loss (2) ESRD on hemodialysis Code(s): N18.6 - END STAGE RENAL DISEASE Z99.2 - DEPENDENCE ON RENAL DIALYSIS (3) GI bleed Code(s): K92.2 - GASTROINTESTINAL HEMORRHAGE, UNSPECIFIED Qualifiers: GI bleed type/associated pathology: melena Qualified Code(s): K92.1 - Melena (4) Acute on chronic systolic and diastolic heart failure, NYHA class 3 Code(s): I50.43 - ACUTE ON CHRONIC COMBINED SYSTOLIC AND DIASTOLIC HRT FAIL (5) Aortic stenosis Code(s): I35.0 - NONRHEUMATIC AORTIC (VALVE) STENOSIS Qualifiers: Cardiac valve disease etiology: nonrheumatic Qualified Code(s): I35.0 - Nonrheumatic aortic (valve) stenosis (6) Atrial flutter Code(s): I48.92 - UNSPECIFIED ATRIAL FLUTTER Qualifiers: Atrial flutter type: typical Qualified Code(s): I48.3 - Typical atrial flutter (7) CAD (coronary artery disease) Code(s): I25.10 - ATHSCL HEART DISEASE OF [place] CORONARY ARTERY W/O ANG PCTRS Qualifiers: Coronary Disease-Associated Artery/Lesion type: [place] artery [place] vs. 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 insulin use: without fdc use Qualified Code(s): E11.9 - Type 2 diabetes mellitus without complications (9) End stage kidney disease Code(s): N18.6 - END STAGE RENAL DISEASE (10) HTN (hypertension) Code(s): I10 - ESSENTIAL (PRIMARY) HYPERTENSION Qualifiers: Hypertension type: renovascular hypertension Qualified Code(s): I15.0 - Renovascular hypertension (11) History of percutaneous coronary intervention Code(s): Z98.89 - OTHER SPECIFIED POSTPROCEDURAL STATES * DO NOT USE * (12) Hyperlipidemia Code(s): E78.5 - HYPERLIPIDEMIA, UNSPECIFIED Qualifiers: Hyperlipidemia type: pure hypercholesterolemia Qualified Code(s): E78.00 - Pure hypercholesterolemia, unspecified; E78.0 - Pure hypercholesterolemia (13) Hypothyroidism (acquired) Code(s): E03.9 - HYPOTHYROIDISM, UNSPECIFIED (14) Single implantable cardioverter-defibrillator (ICD) in situ Code(s): Z95.810 - PRESENCE OF AUTOMATIC (IMPLANTABLE) CARDIAC DEFIBRILLATOR (15) Subendocardial ischemia Code(s): I24.8 - OTHER FORMS OF ACUTE ISCHEMIC HEART DISEASE (16) Troponin level elevated Code(s): R79.89 - OTHER SPECIFIED ABNORMAL FINDINGS OF BLOOD CHEMISTRY Assessment/Plan 1. Hiatal hernia and gastric ulcer on EGD - episode of residual black stool yesterday - currently appears stable 2. Paroxysmal atrial fibrillation/flutter 3. 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 Elevated troponin - subendocardial ischemia 5. CAD, s/p PCI/stent, angina 6. 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 Type 2 DM 8. Hypercholesterolemia 9. Mild aortic valve stenosis and aortic valve regurgitation 10. Anemia and thrombocytopenia 11. Hypothyroidism PLAN: 1. Coumadin should be restarted when cleared by GI - recommends 48 hours 2. Metoprolol ER 50 mg to be restarted unless otherwise 3. ICD interrogation as outpatient 4. HD as per renal service - transfusion PRBC as needed 5. GI protection. GI input noted Further plans are to follow Len Guevara MD
[2016-10-02] MEDS: METOPROLOL SUCCINATE 50 MG TAB.SR.24H (FP) PO SCH (10:53)
[2016-10-02] MEDS: PANTOPRAZOLE 40 MG TABLET (FP) PO SCH ×2 (10:53→21:02)
--- NOTE | 2016-10-02 11:57 | PN ---
Progress Note (short form) - Note Progress Note: comfortable all f/u noted no complains feels ok. no further bleeding denies pain. daughter at bedside Vital Signs Period Temp Pulse Resp BP Sys/Caro Pulse Ox Last 24 Hr 97.7 F-98.5 F 92-100 18-18 106-139/58-65 100 Active Medications Acetaminophen (Tylenol -) 650 mg PO Q6H PRN PRN Reason: FEVER OR PAIN Last Admin: 09/30/16 09:25 Dose: 650 mg Ipratropium [place] (Atrovent 0.02% Nebulizer -) 1 amp NEB QID PRN PRN Reason: SHORTNESS OF BREATH Levothyroxine Sodium (Synthroid -) 100 mcg PO DAILY@0700 [facility] Last Admin: 10/02/16 06:51 Dose: 100 mcg Metoprolol Succinate (Toprol Xl -) 50 mg PO DAILY [facility] Last Admin: 10/02/16 10:53 Dose: 50 mg Midodrine (Proamatine -) 10 mg PO MoWeFr@10 [facility] Last Admin: 09/30/16 09:21 Dose: 10 mg Pantoprazole Sodium (Protonix -) 40 mg PO BID [facility] Last Admin: 10/02/16 10:53 Dose: 40 mg Zolpidem Tartrate (Ambien -) 5 mg PO HS PRN PRN Reason: INSOMNIA Last Admin: 10/01/16 21:36 Dose: 5 mg CBC, BMP 10/02/16 05:35 10/02/16 05:35 PHYSICAL EXAMINATION: Constitutional: Yes: No Distress, Calm/ comfortable Cardiovascular: Yes: Irregular Rate and Rhythm Respiratory: Yes: Diminished at bases Gastrointestinal: Yes: Normal Bowel Sounds, Soft, Edema: No Psychiatric: Yes: Alert, Oriented Problem List - Problems (1) Anemia Code(s): D64.9 - ANEMIA, UNSPECIFIED Qualifiers: Iron deficiency anemia type: chronic blood loss (2) ESRD on hemodialysis Code(s): N18.6 - END STAGE RENAL DISEASE Z99.2 - DEPENDENCE ON RENAL DIALYSIS (3) GI bleed Code(s): K92.2 - GASTROINTESTINAL HEMORRHAGE, UNSPECIFIED Qualifiers: GI bleed type/associated pathology: melena Qualified Code(s): K92.1 - Melena (4) Abdominal pain Code(s): R10.9 - UNSPECIFIED ABDOMINAL PAIN Qualifiers: Abdominal location: left upper quadrant Qualified Code(s): R10.12 - Left upper quadrant pain (5) Atrial flutter Code(s): I48.92 - UNSPECIFIED ATRIAL FLUTTER Qualifiers: Atrial flutter type: typical Qualified Code(s): I48.3 - Typical atrial flutter (6) Troponin level elevated Code(s): R79.89 - OTHER SPECIFIED ABNORMAL FINDINGS OF BLOOD CHEMISTRY ASSESSMENT & PLAN: - overall stable - continue present care - Coumadin to be restart -- likely tomorrow d/c tele - check cbc tomorrow if stable- consider d/c in am discussed with pt/ daughter -- agree with plan
--- NOTE | 2016-10-02 14:18 | PN ---
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 Hb is stable. NO abdominal pain. Reiterated need to take PPI without interruption and to arrange followup EGD. She tells me that she intends to enter a NH. - Objective Vital Signs: Vital Signs Temperature 98.2 F 10/02/16 10:50 Pulse Rate 100 H 10/02/16 10:50 Respiratory Rate 18 10/02/16 10:50 Blood Pressure 125/62 10/02/16 10:50 O2 Sat by Pulse Oximetry (%) 100 10/01/16 20:32 Constitutional: Calm ...Auscultate: Yes: Normoactive Bowel Sounds ...Palpate: Yes: Soft, Other (nontender) Labs: CBC, BMP 10/02/16 05:35 10/02/16 05:35 INR, PTT INR 1.51 (0.82-1.09) H D 10/02/16 05:35 Laboratory Tests 10/01/16 10/02/16 05:35 05:35 Hgb 10.2 L D 10.0 L Assessment/Plan Gastric ulcer bleed resolved. Can resume warfarin tomorrow.
--- NOTE | 2016-10-02 15:43 | PN ---
Progress Note, Physician Chief Complaint: The patient seen in her bed. No further bleeding. Comfortable. - Current Medication List Current Medications: Active Medications Acetaminophen (Tylenol -) 650 mg PO Q6H PRN PRN Reason: FEVER OR PAIN Last Admin: 09/30/16 09:25 Dose: 650 mg Ipratropium [place] (Atrovent 0.02% Nebulizer -) 1 amp NEB QID PRN PRN Reason: SHORTNESS OF BREATH Levothyroxine Sodium (Synthroid -) 100 mcg PO DAILY@0700 [facility] Last Admin: 10/02/16 06:51 Dose: 100 mcg Metoprolol Succinate (Toprol Xl -) 50 mg PO DAILY [facility] Last Admin: 10/02/16 10:53 Dose: 50 mg Midodrine (Proamatine -) 10 mg PO MoWeFr@10 [facility] Last Admin: 09/30/16 09:21 Dose: 10 mg Pantoprazole Sodium (Protonix -) 40 mg PO BID [facility] Last Admin: 10/02/16 10:53 Dose: 40 mg Zolpidem Tartrate (Ambien -) 5 mg PO HS PRN PRN Reason: INSOMNIA Last Admin: 10/01/16 21:36 Dose: 5 mg - Objective Vital Signs: Vital Signs Temperature 97.6 F 10/02/16 14:00 Pulse Rate 74 10/02/16 14:00 Respiratory Rate 18 10/02/16 14:00 Blood Pressure 119/52 10/02/16 14:00 O2 Sat by Pulse Oximetry (%) 100 10/02/16 10:50 Constitutional: Yes: No Distress HENT: Yes: Normocephalic Cardiovascular: Yes: S1, S2 Respiratory: Yes: Regular, CTA Bilaterally Gastrointestinal: Yes: Normal Bowel Sounds, Soft Edema: Yes Edema: LLE: 2+, RLE: 2+ Labs: CBC, BMP 10/02/16 05:35 10/02/16 05:35 INR, PTT INR 1.51 (0.82-1.09) H D 10/02/16 05:35 Problem List - Problems (1) Anemia Code(s): D64.9 - ANEMIA, UNSPECIFIED Qualifiers: Iron deficiency anemia type: chronic blood loss (2) ESRD on hemodialysis Code(s): N18.6 - END STAGE RENAL DISEASE Z99.2 - DEPENDENCE ON RENAL DIALYSIS (3) GI bleed Code(s): K92.2 - GASTROINTESTINAL HEMORRHAGE, UNSPECIFIED Qualifiers: GI bleed type/associated pathology: melena Qualified Code(s): K92.1 - Melena (4) Abdominal pain Code(s): R10.9 - UNSPECIFIED ABDOMINAL PAIN Qualifiers: Abdominal location: left upper quadrant Qualified Code(s): R10.12 - Left upper quadrant pain (5) Aortic stenosis Code(s): I35.0 - NONRHEUMATIC AORTIC (VALVE) STENOSIS Qualifiers: Cardiac valve disease etiology: nonrheumatic Qualified Code(s): I35.0 - Nonrheumatic aortic (valve) stenosis (6) CAD (coronary artery disease) Code(s): I25.10 - ATHSCL HEART DISEASE OF [place] CORONARY ARTERY W/O ANG PCTRS Qualifiers: Coronary Disease-Associated Artery/Lesion type: [place] artery [place] vs. 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 Possibly 2nadary to Pre-pyloric gastric ulcer. Hgb/Hct stable. Will observe. Next HD scheduled tomorrow. ? Short-term rehab, and possible SNF placement Shelli Bacon MD
[2016-10-02] MEDS: ACETAMINOPHEN 325 MG TABLET (FP) PO PRN (21:02)
[2016-10-02] MEDS: ZOLPIDEM TARTRATE 5 MG TABLET PO PRN (21:02)
[2016-10-03] MEDS: LEVOTHYROXINE NA 100 MCG TABLET (FP) PO SCH (06:30)
[2016-10-03 07:36] LABS: BASOPHIL 0.8 % (0-2.0); EOSINOPHIL 0.3 % (0-4.5); MCH 31.1 pg (25.7-33.7); MEAN CELL VOLUME 94.3 fl (80-96); MEAN PLT VOLUME 9.7 fl (7.5-11.1); NEUTROPHILS 80.6 % (42.8-82.8); PLATELET COUNT 99 K/MM3 (134-434); WHITE BLOOD COUNT 6.8 K/mm3 (4.0-10.0)
[2016-10-03 08:09] LABS: ALBUMIN 3.3 g/dl (3.4-5.0); CALCIUM 8.7 mg/dL (8.5-10.1); COCKROFT - GAULT 6.307; CREATININE 6.2 mg/dL (0.55-1.02); TOT PROT 6.3 g/dl (6.4-8.2)
[2016-10-03 08:20] LABS: INR 1.43 (0.82-1.09); PROTHROMBIN TIME (PATIENT) 15.9 SEC (9.98-11.88)
--- NOTE | 2016-10-03 08:24 | DS ---
Physical Examination Vital Signs: Vital Signs Temperature 97.4 F L 10/03/16 06:00 Pulse Rate 64 10/03/16 06:00 Respiratory Rate 18 10/03/16 06:00 Blood Pressure 123/51 10/03/16 06:00 O2 Sat by Pulse Oximetry (%) 98 10/02/16 21:00 Labs: CBC, BMP 10/03/16 05:35 <Norma Oropeza - Last Filed: 10/03/16 08:23> Vital Signs: Vital Signs Temperature 98.3 F 10/03/16 09:00 Pulse Rate 96 H 10/03/16 09:00 Respiratory Rate 18 10/03/16 09:00 Blood Pressure 131/71 10/03/16 09:00 O2 Sat by Pulse Oximetry (%) 98 10/02/16 21:00 Findings/Remarks: Patient seen and examined today Comfortable. Daughter at bedside. Slightly anxious No further bleeding. Constitutional: Yes: No Distress, Anxious Eyes: Yes: Conjunctiva Clear Neck: Yes: Supple Cardiovascular: Yes: Pulse Irregular Gastrointestinal: Yes: Soft Edema: No Psychiatric: Yes: Alert Labs: CBC, BMP 10/03/16 05:35 10/03/16 05:35 <Lizette Herzog - Last Filed: 10/03/16 10:10> Discharge Summary Reason For Visit: ESRD/GASTROINTESTINAL HEMORRHAGE Current Active Problems Anemia (Acute) ESRD on hemodialysis (Acute) Fall (Acute) GI bleed (Acute) - Home Medications Comprehensive Discharge Medication List: Ambulatory Orders Levothyroxine [Synthroid -] 100 mcg PO DAILY 10/11/12 Pregabalin [Lyrica] 75 mg PO DAILY #0 capsule 02/27/13 Metoprolol Succinate [Toprol XL -] 50 mg PO ASDIR 03/09/15 Acetaminophen [Tylenol .Regular Strength -] 650 mg PO Q6H PRN #0 tablet Multivitamin/Iron/Folic Acid [Daily Vitamin Formula-Iron Tab] 1 each PO DAILY Simethicone [Mylicon -] 80 mg PO Q4H PRN #60 tab.chew 03/23/16 Sertraline HCl [Zoloft -] 50 mg PO DAILY 07/12/16 Ipratropium 0.02% Nebulizer [Atrovent 0.02% Nebulizer -] 1 amp NEB QID PRN 07/30 Sevelamer Carbonate [Renvela -] 800 mg PO TIDCM tab 08/06/16 Warfarin Sodium [Coumadin] 2 mg PO DAILY #30 tablet 08/07/16 Folic Acid/Vit Bcomp,C [Cassie-Mahendra Tablet] 0.8 mg PO DAILY 09/28/16 Ipratropium 0.02% Nebulizer [Atrovent 0.02% Nebulizer -] 1 neb NEB DAILY Midodrine HCl [Proamatine -] 10 mg PO MoWeFr@10 tablet 10/03/16 Naph,Mb-Db/K pH,Mbdb [PHOS-NaK PACKET -] 1 packet PO TID #90 misc 10/03/16 Pantoprazole Sodium [Protonix -] 40 mg PO BID #60 bot 10/03/16 Zolpidem Tartrate [Ambien] 5 mg PO HS PRN #0 tablet MDD 1 10/03/16 <Norma Oropeza - Last Filed: 10/03/16 08:23> Current Active Problems Anemia (Acute) ESRD on hemodialysis (Acute) Fall (Acute) GI bleed (Acute) Hospital Course: Patient is an 89 year old female with significant medical hx of CAD, s/p stent, CHF, HTN, HLD, DM, peripheral neuropathy, ESRD (on HD MWF), hypothyroidism, GERD , anemia and osteoarthritis who is presenting to the ED, accompanied by son, with dark stools and weakness for three days. Patient was supposed to start dialysis when she was found to have a low Hb of 6.4 and was sent to the ED for transfusion. The patient complains of loose stools that are dark and tarry for three days. She states that she has gone through ten undergarments from her symptoms. The patient also complains of associated abdominal pain, weakness and decreased appetite. Family member reports that the patient has dropped a few pounds over the past few days as well. Denies fever, chills, taking NSAIDS or pepto bismol. Allergies: codeine, oxycodone HCl Social History: No alcohol, tobacco, or drug use reported. Past Surgical History: AICD, AV Fistula/Graft, Cholecystectomy, Stent PCP: Dariela Milian MD GI: Trung Robbins MD Patient was transfused during the admission. Patient underwent upper endoscopy done by Dr. Magana. Found to have pyloric ulcer. On protonix BID dose-- it is important to continue BID dosing Repeat endoscopy advised in 3 months. Restart on coumadin today-- cleared by GI Monitor INR and CBC closely. Patient's daughter request short term rehab and pt is also in agreement Patient's daughter request to be sent to [facility] home. I also discussed with case aide and also agree that she should be benefitted from short term rehab. Will discharge today pending bed availability. Discharge time in examining, documenting and coordinating care: 35 minutes Documentation prepared by Lizette Herzog, acting as a remote medical coder for Norma Oropeza MD. - Home Medications Comprehensive Discharge Medication List: Ambulatory Orders Levothyroxine [Synthroid -] 100 mcg PO DAILY 10/11/12 Pregabalin [Lyrica] 75 mg PO DAILY #0 capsule 02/27/13 Metoprolol Succinate [Toprol XL -] 50 mg PO ASDIR 03/09/15 Acetaminophen [Tylenol .Regular Strength -] 650 mg PO Q6H PRN #0 tablet Multivitamin/Iron/Folic Acid [Daily Vitamin Formula-Iron Tab] 1 each PO DAILY Simethicone [Mylicon -] 80 mg PO Q4H PRN #60 tab.chew 03/23/16 Sertraline HCl [Zoloft -] 50 mg PO DAILY 07/12/16 Ipratropium 0.02% Nebulizer [Atrovent 0.02% Nebulizer -] 1 amp NEB QID PRN 07/30 Sevelamer Carbonate [Renvela -] 800 mg PO TIDCM tab 08/06/16 Warfarin Sodium [Coumadin] 2 mg PO DAILY #30 tablet 08/07/16 Folic Acid/Vit Bcomp,C [Cassie-Mahendra Tablet] 0.8 mg PO DAILY 09/28/16 Ipratropium 0.02% Nebulizer [Atrovent 0.02% Nebulizer -] 1 neb NEB DAILY Midodrine HCl [Proamatine -] 10 mg PO MoWeFr@10 tablet 10/03/16 Naph,Mb-Db/K pH,Mbdb [PHOS-NaK PACKET -] 1 packet PO TID #90 misc 10/03/16 Pantoprazole Sodium [Protonix -] 40 mg PO BID #60 bot 10/03/16 Zolpidem Tartrate [Ambien] 5 mg PO HS PRN #0 tablet MDD 1 10/03/16 <Lizette Herzog - Last Filed: 10/03/16 10:10> Condition: Good - Instructions Referrals: Dariela Milian MD [Primary Care Provider] -
[2016-10-03] MEDS: METOPROLOL SUCCINATE 50 MG TAB.SR.24H (FP) PO SCH ×2 (10:00→15:30)
[2016-10-03] MEDS: PANTOPRAZOLE 40 MG TABLET (FP) PO SCH ×2 (10:00→15:29)
[2016-10-03] MEDS: MIDODRINE HCL 5 MG TABLET PO SCH ×2 (10:00→15:29)
--- NOTE | 2016-10-03 10:39 | PN ---
Progress Note, Physician Chief Complaint: No further episodes of black stool Not in distress History of Present Illness: Patient was seen and examined. Awake and alert. Chart was reviewed Denies chest pain, SOB or palpitations Await SNF placement - Current Medication List Current Medications: Active Medications Acetaminophen (Tylenol -) 650 mg PO Q6H PRN PRN Reason: FEVER OR PAIN Last Admin: 10/02/16 21:02 Dose: 650 mg Epoetin Keith (Procrit -) 20,000 unit SQ ONCE ONE Stop: 10/03/16 15:55 Ipratropium [place] (Atrovent 0.02% Nebulizer -) 1 amp NEB QID PRN PRN Reason: SHORTNESS OF BREATH Levothyroxine Sodium (Synthroid -) 100 mcg PO DAILY@0700 [facility] Last Admin: 10/03/16 06:30 Dose: 100 mcg Metoprolol Succinate (Toprol Xl -) 50 mg PO DAILY [facility] Last Admin: 10/02/16 10:53 Dose: 50 mg Midodrine (Proamatine -) 10 mg PO MoWeFr@10 [facility] Last Admin: 09/30/16 09:21 Dose: 10 mg Pantoprazole Sodium (Protonix -) 40 mg PO BID [facility] Last Admin: 10/02/16 21:02 Dose: 40 mg Warfarin Sodium (Coumadin -) 2 mg PO ONCE@1800 ONE Stop: 10/03/16 18:01 - Objective Vital Signs: Vital Signs Temperature 98.3 F 10/03/16 09:00 Pulse Rate 96 H 10/03/16 09:00 Respiratory Rate 18 10/03/16 09:00 Blood Pressure 131/71 10/03/16 09:00 O2 Sat by Pulse Oximetry (%) 98 10/02/16 21:00 HENT: Yes: Atraumatic Neck: Yes: Supple Cardiovascular: Yes: Regular Rate and Rhythm, Murmur (2/6 LUIS MIGUEL right intercostal space and soft SM at apex), S1, S2 Respiratory: Yes: CTA Bilaterally Gastrointestinal: Yes: Normal Bowel Sounds, Soft. No: Tenderness Edema: No Additional Findings/Remarks: - Review of Systems Constitutional: denies: Chills, Fever Cardiovascular: denies: Shortness of Breath. denies: Chest Pain, Palpitations Respiratory: denies: SOB, SOB on Exertion. denies: Cough, Hemoptysis, Orthopnea , PND, Wheezing Gastrointestinal: denies: Abdominal Pain, Constipation, Diarrhea, (+) Melena, denies:Nausea, Vomiting Genitourinary: denies: Dysuria Musculoskeletal: denies: Joint Pain Neurological: denies: Unsteady Gait, Weakness. denies: Dizziness, Headache, Numbness, Seizure, Syncope Labs: CBC, BMP 10/03/16 05:35 10/03/16 05:35 INR, PTT INR 1.43 (0.82-1.09) H 10/03/16 05:35 Problem List - Problems (1) Anemia Code(s): D64.9 - ANEMIA, UNSPECIFIED Qualifiers: Iron deficiency anemia type: chronic blood loss (2) ESRD on hemodialysis Code(s): N18.6 - END STAGE RENAL DISEASE Z99.2 - DEPENDENCE ON RENAL DIALYSIS (3) GI bleed Code(s): K92.2 - GASTROINTESTINAL HEMORRHAGE, UNSPECIFIED Qualifiers: GI bleed type/associated pathology: melena Qualified Code(s): K92.1 - Melena (4) Acute on chronic systolic and diastolic heart failure, NYHA class 3 Code(s): I50.43 - ACUTE ON CHRONIC COMBINED SYSTOLIC AND DIASTOLIC HRT FAIL (5) Aortic stenosis Code(s): I35.0 - NONRHEUMATIC AORTIC (VALVE) STENOSIS Qualifiers: Cardiac valve disease etiology: nonrheumatic Qualified Code(s): I35.0 - Nonrheumatic aortic (valve) stenosis (6) Atrial flutter Code(s): I48.92 - UNSPECIFIED ATRIAL FLUTTER Qualifiers: Atrial flutter type: typical Qualified Code(s): I48.3 - Typical atrial flutter (7) CAD (coronary artery disease) Code(s): I25.10 - ATHSCL HEART DISEASE OF [place] CORONARY ARTERY W/O ANG PCTRS Qualifiers: Coronary Disease-Associated Artery/Lesion type: [place] artery [place] vs. transplanted heart: [place] heart Associated angina: without angina Qualified Code(s): I25.10 - Atherosclerotic heart disease of [place] coronary artery without angina pectoris (8) Diabetes Code(s): E11.9 - TYPE 2 DIABETES MELLITUS WITHOUT COMPLICATIONS Qualifiers: Diabetes mellitus type: type 2 Diabetes mellitus complication status: without complication Diabetes mellitus alf insulin use: without terminal press operator use Qualified Code(s): E11.9 - Type 2 diabetes mellitus without complications (9) End stage kidney disease Code(s): N18.6 - END STAGE RENAL DISEASE (10) HTN (hypertension) Code(s): I10 - ESSENTIAL (PRIMARY) HYPERTENSION Qualifiers: Hypertension type: renovascular hypertension Qualified Code(s): I15.0 - Renovascular hypertension (11) History of percutaneous coronary intervention Code(s): Z98.89 - OTHER SPECIFIED POSTPROCEDURAL STATES * DO NOT USE * (12) Hyperlipidemia Code(s): E78.5 - HYPERLIPIDEMIA, UNSPECIFIED Qualifiers: Hyperlipidemia type: pure hypercholesterolemia Qualified Code(s): E78.00 - Pure hypercholesterolemia, unspecified; E78.0 - Pure hypercholesterolemia (13) Hypothyroidism (acquired) Code(s): E03.9 - HYPOTHYROIDISM, UNSPECIFIED (14) Single implantable cardioverter-defibrillator (ICD) in situ Code(s): Z95.810 - PRESENCE OF AUTOMATIC (IMPLANTABLE) CARDIAC DEFIBRILLATOR (15) Subendocardial ischemia Code(s): I24.8 - OTHER FORMS OF ACUTE ISCHEMIC HEART DISEASE (16) Troponin level elevated Code(s): R79.89 - OTHER SPECIFIED ABNORMAL FINDINGS OF BLOOD CHEMISTRY Assessment/Plan 1. Hiatal hernia and gastric ulcer on EGD - currently appears stable 2. Paroxysmal atrial fibrillation/flutter 3. 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 Elevated troponin - subendocardial ischemia 5. CAD, s/p PCI/stent, angina 6. 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 Type 2 DM 8. Hypercholesterolemia 9. Mild aortic valve stenosis and aortic valve regurgitation 10. Anemia and thrombocytopenia 11. Hypothyroidism PLAN: 1. Coumadin should be restarted today - discussed with Dr. Magana 2. Continue Metoprolol ER 50 mg 3. ICD interrogation as outpatient 4. HD as per renal service - transfusion PRBC as needed 5. GI protection. GI input noted Further plans are to follow Len Guevara MD
--- NOTE | 2016-10-03 13:28 | PN ---
Progress Note, Physician Chief Complaint: The patient seen in her bed. Dialysis in progress. Orders reviewed with the RN. No further bleeding. Comfortable. Scheduled to be d/c to [facility] today. - Current Medication List Current Medications: Active Medications Acetaminophen (Tylenol -) 650 mg PO Q6H PRN PRN Reason: FEVER OR PAIN Last Admin: 10/02/16 21:02 Dose: 650 mg Epoetin Keith (Procrit -) 20,000 unit SQ ONCE ONE Stop: 10/03/16 15:55 Ipratropium [place] (Atrovent 0.02% Nebulizer -) 1 amp NEB QID PRN PRN Reason: SHORTNESS OF BREATH Levothyroxine Sodium (Synthroid -) 100 mcg PO DAILY@0700 [facility] Last Admin: 10/03/16 06:30 Dose: 100 mcg Metoprolol Succinate (Toprol Xl -) 50 mg PO DAILY [facility] Last Admin: 10/02/16 10:53 Dose: 50 mg Midodrine (Proamatine -) 10 mg PO MoWeFr@10 [facility] Last Admin: 09/30/16 09:21 Dose: 10 mg Pantoprazole Sodium (Protonix -) 40 mg PO BID [facility] Last Admin: 10/02/16 21:02 Dose: 40 mg Warfarin Sodium (Coumadin -) 2 mg PO ONCE@1800 ONE Stop: 10/03/16 18:01 - Objective Vital Signs: Vital Signs Temperature 98.8 F 10/03/16 11:50 Pulse Rate 94 H 10/03/16 12:55 Respiratory Rate 18 10/03/16 12:55 Blood Pressure 106/60 10/03/16 12:55 O2 Sat by Pulse Oximetry (%) 98 10/03/16 09:00 Constitutional: Yes: No Distress, Calm HENT: Yes: Normocephalic Cardiovascular: Yes: S1, S2 Respiratory: Yes: CTA Bilaterally Gastrointestinal: Yes: Normal Bowel Sounds Edema: LLE: Trace Labs: CBC, BMP 10/03/16 05:35 10/03/16 05:35 INR, PTT INR 1.43 (0.82-1.09) H 10/03/16 05:35 Problem List - Problems (1) Anemia Code(s): D64.9 - ANEMIA, UNSPECIFIED Qualifiers: Iron deficiency anemia type: chronic blood loss (2) ESRD on hemodialysis Code(s): N18.6 - END STAGE RENAL DISEASE Z99.2 - DEPENDENCE ON RENAL DIALYSIS (3) GI bleed Code(s): K92.2 - GASTROINTESTINAL HEMORRHAGE, UNSPECIFIED Qualifiers: GI bleed type/associated pathology: melena Qualified Code(s): K92.1 - Melena (4) Abdominal pain Code(s): R10.9 - UNSPECIFIED ABDOMINAL PAIN Qualifiers: Abdominal location: left upper quadrant Qualified Code(s): R10.12 - Left upper quadrant pain (5) Aortic stenosis Code(s): I35.0 - NONRHEUMATIC AORTIC (VALVE) STENOSIS Qualifiers: Cardiac valve disease etiology: nonrheumatic Qualified Code(s): I35.0 - Nonrheumatic aortic (valve) stenosis (6) CAD (coronary artery disease) Code(s): I25.10 - ATHSCL HEART DISEASE OF [place] CORONARY ARTERY W/O ANG PCTRS Qualifiers: Coronary Disease-Associated Artery/Lesion type: [place] artery [place] vs. transplanted heart: [place] heart Associated angina: without angina Qualified Code(s): I25.10 - Atherosclerotic heart disease of [place] coronary artery without angina pectoris (7) Diabetes Code(s): E11.9 - TYPE 2 DIABETES MELLITUS WITHOUT COMPLICATIONS Qualifiers: Diabetes mellitus type: type 2 Diabetes mellitus complication status: without complication Diabetes mellitus termite control technician insulin use: without detention use Qualified Code(s): E11.9 - Type 2 diabetes mellitus without complications Assessment/Plan 89 y/o female admitted with Acute massive lower GI bleeding. Pre-pyloric gastric ulcer. Hgb/Hct stable. Short-term rehab in SNF and D/C possibly scheduled for today. If discharged, she will return to [facility] Dialysis unit [facility] schedule. Shelli Bacon MD
[2016-10-03 15:18] VITALS: TEMP 98.4
[2016-10-03] MEDS ORDERED: EPOETIN ALFA 20,000 UNIT/1 ML VIAL SQ ONE (15:30)
[2016-10-03 15:34] VITALS: BP 119/57; PULSE 96
[2016-10-03] MEDS ORDERED: WARFARIN NA 2 MG TABLET (UD) PO ONE (18:00)
[2016-10-06 00:08] LABS: HEP B SURFACE AB Reactive (.)
== END 2016-10-03 17:30 | DRG 377 ==
LOC: JER 16:28 → JERBED 18:56 → J4W 09-29 11:53
PROVIDERS: ADMIT Internal Medicine; ATTEND Internal Medicine
PROC: 30233N1 Transfusion of Nonautologous Red Blood Cells into Peripheral Vein, Percutaneous Approach (ICD-10-PCS; 2016-09-28)
PROC: 5A1D60Z (ICD-10-PCS; 2016-09-29)
PROC: 0DJ08ZZ Inspection of Upper Intestinal Tract, Via Natural or Artificial Opening Endoscopic (ICD-10-PCS; principal; 2016-09-30 13:00)
DX: K25.4 Chronic or unspecified gastric ulcer with hemorrhage (principal); N18.6 End stage renal disease; I48.92 Unspecified atrial flutter; I13.2 Hypertensive heart and chronic kidney disease with heart failure and with stage 5 chronic kidney disease, or end stage renal disease; I50.22 Chronic systolic (congestive) heart failure; I25.10 Atherosclerotic heart disease of native coronary artery without angina pectoris; G62.9 Polyneuropathy, unspecified; E03.9 Hypothyroidism, unspecified; K21.9 Gastro-esophageal reflux disease without esophagitis; D64.9 Anemia, unspecified; K29.70 Gastritis, unspecified, without bleeding; M19.90 Unspecified osteoarthritis, unspecified site; R79.89 Other specified abnormal findings of blood chemistry; K44.9 Diaphragmatic hernia without obstruction or gangrene; R26.89 Other abnormalities of gait and mobility; I48.0 Paroxysmal atrial fibrillation; D69.6 Thrombocytopenia, unspecified; E11.22 Type 2 diabetes mellitus with diabetic chronic kidney disease; Z99.2 Dependence on renal dialysis; Z95.5 Presence of coronary angioplasty implant and graft; Z95.810 Presence of automatic (implantable) cardiac defibrillator
CPT/HCPCS: 36415; 36430; 71010-TC; 80048; 80053; 82272; 82550; 83690; 83735; 84100; 84132; 84484; 85025; 85027; 85610; 85730; 86704; 86706; 86708; 86803; 86850; 86900; 86901; 86922; 87340; 93005; 93010; 93931; 97116-GP; 97161-GP; 99285-25; J0885; P9038; P9058

== ENCOUNTER 2017-04-21 14:35 | Inpatient (IN) | payer OTHER ==
[2017-04-21 14:45] VITALS: BMI 24.2
--- NOTE | 2017-04-21 14:45 | PDOC ---
Rapid Medical Evaluation Time Seen by Provider: 04/21/17 14:42 Medical Evaluation: Allergies Allergy/AdvReac Type Severity Reaction Status Date / Time codeine [Codeine] Allergy Mild Itching Verified 09/28/16 16:39 oxycodone HCl [From Percocet] Allergy Verified 09/28/16 16:39 04/21/17 14:42 I have performed a brief in-person evaluation of this patient. The patient presents with a chief complaint of: Resident at [facility] p/w AMS since this am. H/o on ESRD, s/p HD today, DM, HTN, PPM, AICD Pertinent physical exam findings:Stable and alert but oriented x 1 (to place), which is new for pt per family I have ordered the following:ekg/cxr/cbc/chem/ua The patient will proceed to the ED for further evaluation. 04/21/17 14:46
[2017-04-21 15:04] LABS: BASO % 0.6 % (0-2.0); EOS % 0.6 % (0-4.5); MCH 30.8 pg (25.7-33.7); MCHC 32.8 g/dl (32.0-36.0); MEAN CELL VOLUME 93.8 fl (80-96); MEAN PLT VOLUME 8.9 fl (7.5-11.1); PLATELET COUNT 144 K/MM3 (134-434); WHITE BLOOD COUNT 5.7 K/mm3 (4.0-10.0)
[2017-04-21 15:37] LABS: ANION GAP 10 (8-16); BILIRUBIN,TOTAL 0.6 mg/dL (0.2-1.0); CALCIUM 8.6 mg/dL (8.5-10.1); CO2 29 mmol/L (21-32); CREATININE 2.6 mg/dL (0.55-1.02); GLUCOSE,RANDOM 194 mg/dL (74-106); SGOT/AST 13 U/L (15-37); SGPT/ALT 16 U/L (12-78); TOT PROT 6.7 g/dl (6.4-8.2)
[2017-04-21 15:39] LABS: ALK PHOS 324 U/L (45-117); CPK 31 IU/L (26-192); TROPONIN I 0.32 ng/ml (0.00-0.05)
--- NOTE | 2017-04-21 16:19 | PDOC ---
History of Present Illness <Leti,Boris - Last Filed: 04/21/17 18:32> - General History Source: Patient, Family - History of Present Illness Initial Comments: 04/21/17 16:45 Patient is an 89 year old female with significant medical hx of CAD, s/p stent, CHF, HTN, HLD, dialysis, peripheral neuropathy, hypothyroidism, GERD, skin cancer bilateral legs, anemia and osteoarthritis who is presenting to the ED, accompanied by son, with disorientation beginning this morning. As per patients son she resides at the [facility] and has been put on a muscle relaxer in addition to half an Ambien for the past two days for chronic occipital and neck pain. He reports she usually is alert and orientated, however, today she has been confused. She denies recent fevers, chills, headache or dizziness. She denies recent nausea, vomit, diarrhea or constipation. She denies recent dysuria, frequency, urgency or hematuria. She denies recent chest pain or shortness of breath. Allergies: codeine, oxycodone HCl Social History: No alcohol, tobacco, or drug use reported. Past Surgical History: AICD, AV Fistula/Graft, Cholecystectomy, Stent PCP: Dariela Milian MD <Nati Eugene - Last Filed: 04/21/17 19:55> - General Chief Complaint: Altered Mental Status Stated Complaint: PCP: SENT/ ALTERED MENTAL STATUS Time Seen by Provider: 04/21/17 14:42 Past History - Past Medical History Anemia: No Cardiac Disorders: Yes (STENT, DIFIBRILLATOR) COPD: No CHF: Yes Diabetes: Yes Dialysis: Yes (m,w,f) GI Disorders: Yes (REFLUX) Disorders: Yes (esrd x 5y, low BP @ HD) HTN: Yes Hypercholesterolemia: Yes Thyroid Disease: Yes (HYPOTHYROID) - Surgical History Abdominal Surgery: Yes Cardiac Surgery: Yes (pacemaker-stent) - Immunization History Immunization Up to Date: Yes - Suicide/Smoking/Psychosocial Hx Smoking Status: No Smoking History: Unknown if ever smoked Years of Tobacco Use: 50 Have you smoked in the past 12 months: No Number of Cigarettes Smoked Daily: 0 If you are a former smoker, when did you quit?: 25 years Information on smoking cessation initiated: No Hx Alcohol Use: No Drug/Substance Use Hx: No Substance Use Type: None Hx Substance Use Treatment: No <Diaz Landeros - Last Filed: 04/21/17 18:32> <Nati Eugene - Last Filed: 04/21/17 19:55> - Past Medical History Allergies/Adverse Reactions: Allergies Allergy/AdvReac Type Severity Reaction Status Date / Time codeine [Codeine] Allergy Mild Itching Verified 04/21/17 14:46 oxycodone HCl [From Percocet] Allergy Verified 04/21/17 14:46 Home Medications: Ambulatory Orders Levothyroxine [Synthroid -] 100 mcg PO DAILY 10/11/12 Pregabalin [Lyrica] 75 mg PO DAILY #0 capsule 02/27/13 Metoprolol Succinate [Toprol XL -] 50 mg PO ASDIR 03/09/15 Acetaminophen [Tylenol .Regular Strength -] 650 mg PO Q6H PRN #0 tablet Multivitamin/Iron/Folic Acid [Daily Vitamin Formula-Iron Tab] 1 each PO DAILY Simethicone [Mylicon -] 80 mg PO Q4H PRN #60 tab.chew 03/23/16 Sertraline HCl [Zoloft -] 50 mg PO DAILY 07/12/16 Ipratropium 0.02% Nebulizer [Atrovent 0.02% Nebulizer -] 1 amp NEB QID PRN 07/30 Sevelamer Carbonate [Renvela -] 800 mg PO TIDCM tab 08/06/16 Warfarin Sodium [Coumadin] 2 mg PO DAILY #30 tablet 08/07/16 Folic Acid/Vit Bcomp,C [Cassie-Mahendra Tablet] 0.8 mg PO DAILY 09/28/16 Ipratropium 0.02% Nebulizer [Atrovent 0.02% Nebulizer -] 1 neb NEB DAILY Midodrine HCl [Proamatine -] 10 mg PO MoWeFr@10 tablet 10/03/16 Naph,Mb-Db/K pH,Mbdb [PHOS-NaK PACKET -] 1 packet PO TID #90 misc 10/03/16 Pantoprazole Sodium [Protonix -] 40 mg PO BID #60 bot 10/03/16 Zolpidem Tartrate [Ambien] 5 mg PO HS PRN #0 tablet MDD 1 10/03/16 Baclofen 10 mg PO DAILY 04/21/17 Review of Systems - Review of Systems Able to Perform ROS?: Yes Comments:: 04/21/17 17:05 Review of Systems provided by son. CONSTITUTIONAL: No fever, no chills, no fatigue EYES: No visual changes ENT: No ear pain, no sore throat CARDIOVASCULAR: No chest pain, no palpitations RESPIRATORY: No cough, no SOB GI: No abdominal pain, no nausea, no vomiting, no constipation, no diarrhea GENITOURINARY: No dysuria, no frequency, no hematuria MUSKULOSKELETAL: No back pain, no joint pain, no myalgias SKIN: +Skin Cancer. No rash NEURO: +Confused. All Other Systems: Reviewed and Negative <Nati Eugene - Last Filed: 04/21/17 19:55> *Physical Exam - Vital Signs Last Vital Signs Temp Pulse Resp BP Pulse Ox 98.1 F 61 18 157/99 100 04/21/17 14:42 04/21/17 14:42 04/21/17 14:42 04/21/17 14:42 04/21/17 14:42 - Physical Exam Comments: 04/21/17 17:54 NEURO: Patient is awake and alert, but falls asleep during interview. Patient is oriented to self only; Patient follows simple commands but is noted to perseverate; Cranial nerves II through XII are grossly intact; motor is 5 of 5 bilaterally to upper and lower extremities; I'm unable to test for that pronation drift due to lack of cooperation on the patient's part; Babinski is negative bilaterally; gait is deferred. Patient does not cooperate with a Mini-Mental exam; <Diaz Landeros - Last Filed: 04/21/17 18:32> - Vital Signs Last Vital Signs Temp Pulse Resp BP Pulse Ox 98.1 F 61 18 157/99 100 04/21/17 14:42 04/21/17 14:42 04/21/17 14:42 04/21/17 14:42 04/21/17 14:42 - Physical Exam Comments: CONSTITUTIONAL: Awake and alert. Well-appearing; well-nourished; in no apparent distress HEAD: Normocephalic; atraumatic EYES: PERRL; EOM intact conjunctiva pale ENMT: External appears normal; normal oropharynx NECK: Supple; non-tender; no cervical lymphadenopathy CARD:Irregularly irregular, 3 of 6 systolic ejection murmur. No rubs, or gallops RESP: Normal chest excursion with respiration; breath sounds clear and equal bilaterally; no wheezes, rhonchi, or rales ABD: Soft, non-distended; non-tender; no palpable organomegaly, no palpable hernias EXT: Normal ROM in all four extremities; non-tender to palpation; distal pulses intact SKIN: No rash. Bilateral chronic ulcerations to distal pretibial area 04/21/17 17:58 <Nati Eugene - Last Filed: 04/21/17 19:55> ED Treatment Course - LABORATORY CBC & Chemistry Diagram: 04/21/17 14:55 04/21/17 14:55 - ADDITIONAL ORDERS Additional order review: Laboratory Results 04/21/17 14:55 Sodium 142 Potassium 3.9 Chloride 103 Carbon Dioxide 29 Anion Gap 10 BUN 29 H D Creatinine 2.6 H D Creat Clearance w eGFR 17.33 Random Glucose 194 H Calcium 8.6 Total Bilirubin 0.6 D AST 13 L D ALT 16 D Alkaline Phosphatase 324 H D Creatine Kinase 31 Troponin I 0.32 H Total Protein 6.7 Albumin 3.0 L 04/21/17 14:55 RBC 2.85 L MCV 93.8 MCHC 32.8 RDW 19.0 H D MPV 8.9 Neutrophils % 84.0 H Lymphocytes % 8.4 Monocytes % 6.4 Eosinophils % 0.6 D Basophils % 0.6 <Diaz Landeros - Last Filed: 04/21/17 18:32> - LABORATORY CBC & Chemistry Diagram: 04/21/17 14:55 04/21/17 14:55 - ADDITIONAL ORDERS Additional order review: Laboratory Results 04/21/17 14:55 Sodium 142 Potassium 3.9 Chloride 103 Carbon Dioxide 29 Anion Gap 10 BUN 29 H D Creatinine 2.6 H D Creat Clearance w eGFR 17.33 Random Glucose 194 H Calcium 8.6 Total Bilirubin 0.6 D AST 13 L D ALT 16 D Alkaline Phosphatase 324 H D Creatine Kinase 31 Troponin I 0.32 H Total Protein 6.7 Albumin 3.0 L 04/21/17 14:55 RBC 2.85 L MCV 93.8 MCHC 32.8 RDW 19.0 H D MPV 8.9 Neutrophils % 84.0 H Lymphocytes % 8.4 Monocytes % 6.4 Eosinophils % 0.6 D Basophils % 0.6 <Nati Eugene - Last Filed: 04/21/17 19:55> Medical Decision Making - Medical Decision Making 04/21/17 18:06 Patient is an 89-year-old female with multiple comorbidities, history of 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 Patient's symptoms started after administration of Ambien and baclofen the previous 2 days for pain in the occipital area and neck. In the ER, patient is awake and alert, but somnolent and falls asleep during the interview. No focal neurological deficits are noted but a detailed neurological evaluation is difficult to obtain due to lack of patient cooperation. Extraocular movements are intact and pupils are round and reactive to light and accommodation. There is no obvious extremity drift and Babinski is negative bilaterally. I suspect polypharmacy. We'll rule out infection. CT of head shows no evidence of acute intracranial pathology. Chest x -ray reveals no evidence of infiltrate or effusion. CBC reveals moderate anemia likely of chronic disease. Urinalysis reveals pyuria with red cells. Will treat with Zosyn. Will admit. <Diaz Landeros - Last Filed: 04/21/17 18:32> - Medical Decision Making 6:01pm A call was placed to Dr. Dariela Milian answering service, awaiting call back. 6:05pm A call was placed to Dr. Shelli Milian answering service, awaiting call back. 7:54pm Call was placed to Dr. Yahir Cortez, case was discussed. <Nati Eugene - Last Filed: 04/21/17 19:55> *DC/Admit/Observation/Transfer - Discharge Dispostion Admit: Yes - Attestations Physician Attestion: 04/21/17 17:54 The documentation was prepared by the scribe under my direct supervision. I have reviewed the documentation which correctly represents the findings, medical decision-making and critical action taken by me. <Diaz Landeros - Last Filed: 04/21/17 18:32> - Attestations Scribe Attestion: 04/21/17 16:46 Documentation prepared by Nati Eugene, acting as medical cost consultant for Diaz Landeros MD. <Nati Eugene - Last Filed: 04/21/17 19:55> Diagnosis at time of Disposition: Altered mental status Qualifiers: Altered mental status type: unspecified Qualified Code(s): R41.82 - Altered mental status, unspecified Urinary tract infection Qualifiers: Urinary tract infection type: site unspecified Hematuria presence: with hematuria Qualified Code(s): N39.0 - Urinary tract infection, site not specified - Discharge Dispostion Condition at time of disposition: Fair
[2017-04-21 17:08] LABS: URINE APPEARANCE CLOUDY; URINE BILIRUBIN NEGATIVE (NEGATIVE); URINE BLOOD 3+ (NEGATIVE); URINE COLOR YELLOW; URINE GLUCOSE (UA) NEGATIVE (NEGATIVE); URINE KETONE NEGATIVE (NEGATIVE); URINE NITRITE NEGATIVE (NEGATIVE); URINE UROBILINOGEN NEGATIVE mg/dL (0.2-1.0)
[2017-04-21 17:10] LABS: URINE LEUK ESTERASE 3+ (NEGATIVE); URINE PROTEIN 1+ (NEGATIVE)
[2017-04-21 17:19] LABS: URINE BACTERIA RARE /hpf (NONE SEEN); URINE MUCUS RARE; URINE RBC 112 /hpf (0-3); URINE WBC 191 /hpf (3-5)
[2017-04-21] MEDS ORDERED: PIPERACILLIN/TAZOB 2.25 GM/50 ML PREMIX BAG IVPB ONE (18:05)
[2017-04-21] MEDS ORDERED: PIPERACILLIN/TAZOB 2.25 GM 2.25 GM in DEXTROSE 5%-WATER - 50 ML IVPB ONE (18:15)
[2017-04-21 18:19] LABS: INR 2.45 (0.82-1.09); PROTHROMBIN TIME (PATIENT) 27.7 SEC (9.98-11.88)
[2017-04-21 18:37] LABS: URINE LEUK ESTERASE 2+ (NEGATIVE)
[2017-04-21] MEDS ORDERED: PIPERACILLIN/TAZOB 3.375 GM 3.375 GM/50 ML BAG IVPB ONE (19:24)
--- NOTE | 2017-04-21 20:01 | HP ---
CHIEF COMPLAINT: Altered Mental Status PCP: Dr. Dariela Milian HISTORY OF PRESENT ILLNESS: This is a 89 y/o woman with a past medical history of ESRD (HD- M,W,F). Who [facility] the [facility] for confusion. Per patient's daughter who was at the bedside, patient is normally alert and oriented. Patient 's daughter notes the change in her memory recall, and that the patient is more somnolent then usual. The daughter did report that the patient is on a new medication Baclofen for her muscle spasms in addition to Ambien for sleep. ER course was notable for: (1) CT Head- moderate volume loss, ventricular dilation. mild chronic microvascular ischemic changes. No ICH, mass or lesion (2) UA- +2 leukocyte esterase, +3 blood, +1 protein, 191 WBC (3) Chest Xray- neg infiltrate, no pleural effusion. mild chronic volume overload, cardiomegaly Recent Travel: None PAST MEDICAL HISTORY: ESRD (HD- M,W,F) CAD stent CHF HTN HLD Skin Ca Hypothyroid PAST SURGICAL HISTORY: AICD (R-sided) AV Fistula (left upper arm) Social History: Smoking: Never Alcohol: None Drugs: None Lives in a SNF Family History: Non-Contibutory Allergies codeine [Codeine] Allergy (Mild, Verified 04/21/17 14:46) Itching oxycodone HCl [From Percocet] Allergy (Verified 04/21/17 14:46) PER RN NICKY ABARCA GETS "MUSCLE SPASM" FROM PERCOCET HOME MEDICATIONS: Home Medications Medication Instructions Recorded Levothyroxine [Synthroid -] 100 mcg PO DAILY 10/11/12 Pregabalin [Lyrica] 75 mg PO DAILY #0 capsule 02/27/13 Metoprolol Succinate [Toprol XL -] 50 mg PO ASDIR 03/09/15 Acetaminophen [Tylenol .Regular 650 mg PO Q6H PRN #0 tablet 01/18/16 Strength -] Multivitamin/Iron/Folic Acid 1 each PO DAILY 03/20/16 [Daily Vitamin Formula-Iron Tab] Simethicone [Mylicon -] 80 mg PO Q4H PRN #60 tab.chew 03/23/16 Sertraline HCl [Zoloft -] 50 mg PO DAILY 07/12/16 Ipratropium 0.02% Nebulizer 1 amp NEB QID PRN 07/30/16 [Atrovent 0.02% Nebulizer -] Sevelamer Carbonate [Renvela -] 800 mg PO TIDCM tab 08/06/16 Warfarin Sodium [Coumadin] 2 mg PO DAILY #30 tablet 08/07/16 Folic Acid/Vit Bcomp,C [Cassie-Mahendra 0.8 mg PO DAILY 09/28/16 Tablet] Ipratropium 0.02% Nebulizer 1 neb NEB DAILY 09/28/16 [Atrovent 0.02% Nebulizer -] Midodrine HCl [Proamatine -] 10 mg PO MoWeFr@10 tablet 10/03/16 Naph,Mb-Db/K pH,Mbdb [PHOS-NaK 1 packet PO TID #90 misc 10/03/16 PACKET -] Pantoprazole Sodium [Protonix -] 40 mg PO BID #60 bot 10/03/16 Zolpidem Tartrate [Ambien] 5 mg PO HS PRN #0 tablet MDD 1 10/03/16 Baclofen 10 mg PO DAILY 04/21/17 REVIEW OF SYSTEMS unable to obtain- unresponsive CONSTITUTIONAL: Absent: fever, chills, diaphoresis, generalized weakness, malaise, loss of appetite, weight change HEENT: Absent: rhinorrhea, nasal congestion, throat pain, throat swelling, difficulty swallowing, mouth swelling, ear pain, eye pain, visual changes CARDIOVASCULAR: Absent: chest pain, syncope, palpitations, irregular heart rate, lightheadedness , peripheral edema RESPIRATORY: Absent: cough, shortness of breath, dyspnea with exertion, orthopnea, wheezing, stridor, hemoptysis GASTROINTESTINAL: Absent: abdominal pain, abdominal distension, nausea, vomiting, diarrhea, constipation, melena, hematochezia GENITOURINARY: Absent: dysuria, frequency, urgency, hesitancy, hematuria, flank pain, genital pain MUSCULOSKELETAL: Absent: myalgia, arthralgia, joint swelling, back pain, neck pain SKIN: Absent: rash, itching, pallor HEMATOLOGIC/IMMUNOLOGIC: Absent: easy bleeding, easy bruising, lymphadenopathy, frequent infections ENDOCRINE: Absent: unexplained weight gain, unexplained weight loss, heat intolerance, cold intolerance NEUROLOGIC: Absent: headache, focal weakness or paresthesias, dizziness, unsteady gait, seizure, mental status changes, bladder or bowel incontinence PSYCHIATRIC: Absent: anxiety, depression, suicidal or homicidal ideation, hallucinations. PHYSICAL EXAMINATION Vital Signs - 24 hr 04/21/17 14:42 Temperature 98.1 F Pulse Rate 61 Respiratory 18 Rate Blood Pressure 157/99 O2 Sat by Pulse 100 Oximetry (%) GENERAL: Lethargic, alert to name, person only by verbal and deep tactile stimulus, in no acute distress. HEAD: Normal with no signs of trauma. EYES: Pupils equal, round and reactive to light, sclera anicteric, conjunctiva clear. No lid lag. EARS, NOSE, THROAT: Ears normal, nares patent, oropharynx clear without exudates. Dry mucous membranes. NECK: Normal range of motion, supple without lymphadenopathy, JVD, or masses. LUNGS: Breath sounds equal, clear to auscultation bilaterally. No wheezes, and no crackles. No accessory muscle use. HEART: Regular rate and rhythm, normal S1 and S, Grade 3/6 systolic murmur. No rub or gallop. ABDOMEN: Soft, nontender, not distended, normoactive bowel sounds, no guarding, no rebound, no masses. No hepatomegaly or splenomegaly. MUSCULOSKELETAL: Normal range of motion at all joints. No bony deformities or tenderness. No CVA tenderness. UPPER EXTREMITIES: 2+ pulses, warm, well-perfused. No cyanosis. No clubbing. No peripheral edema. AV Fistula- L- upper arm, bruit/thrill present LOWER EXTREMITIES: 2+ pulses, warm, well-perfused. No calf tenderness. No peripheral edema. NEUROLOGICAL: Cranial nerves II-XII not intact. Slowed speech. Gait not observed. PSYCHIATRIC: Lethargic, responds to questions when prompted. SKIN: Warm, dry, normal turgor, no rashes. 2 scabbed lesions to anterior RLE 2 circular lesions anterior LLE noted, normal capillary refill. Laboratory Results - last 24 hr 04/21/17 04/21/17 04/21/17 14:55 14:55 16:58 WBC 5.7 RBC 2.85 L Hgb 8.8 L D Hct 26.8 L D MCV 93.8 MCH 30.8 MCHC 32.8 RDW 19.0 H D Plt Count 144 D MPV 8.9 Neutrophils % 84.0 H Lymphocytes % 8.4 Monocytes % 6.4 Eosinophils % 0.6 D Basophils % 0.6 PT with INR INR Sodium 142 Potassium 3.9 Chloride 103 Carbon Dioxide 29 Anion Gap 10 BUN 29 H D Creatinine 2.6 H D Creat Clearance w eGFR 17.33 Random Glucose 194 H Calcium 8.6 Total Bilirubin 0.6 D AST 13 L D ALT 16 D Alkaline Phosphatase 324 H D Creatine Kinase 31 Troponin I 0.32 H Total Protein 6.7 Albumin 3.0 L Urine Color Yellow Urine Appearance Cloudy Urine pH 7.0 Ur Specific [place] 1.011 Urine Protein 1+ H Urine Glucose (UA) Negative Urine Ketones Negative Urine Blood 3+ H Urine Nitrite Negative Urine Bilirubin Negative Urine Urobilinogen Negative Ur Leukocyte Esterase 2+ H Urine WBC (Auto) 191 Urine RBC (Auto) 112 Ur Epithelial Cells Rare Urine Bacteria Rare Urine Mucus Rare Blood Type Antibody Screen 04/21/17 04/21/17 17:06 17:06 WBC RBC Hgb Hct MCV MCH MCHC RDW Plt Count MPV Neutrophils % Lymphocytes % Monocytes % Eosinophils % Basophils % PT with INR 27.70 H INR 2.45 H D Sodium Potassium Chloride Carbon Dioxide Anion Gap BUN Creatinine Creat Clearance w eGFR Random Glucose Calcium Total Bilirubin AST ALT Alkaline Phosphatase Creatine Kinase Troponin I Total Protein Albumin Urine Color Urine Appearance Urine pH Ur Specific [place] Urine Protein Urine Glucose (UA) Urine Ketones Urine Blood Urine Nitrite Urine Bilirubin Urine Urobilinogen Ur Leukocyte Esterase Urine WBC (Auto) Urine RBC (Auto) Ur Epithelial Cells Urine Bacteria Urine Mucus Blood Type O NEGATIVE Antibody Screen Negative ASSESSMENT/PLAN: This is a 89 y/o woman with a PMHx of ESRD (HD, M,W,F), CAD s/p stent, CHF, HTN , HLD, DM. Admitted to [facility] for AMS secondary to UTI. Plan: 1. Altered Mental Status - Likely due to UTI vs Metabolic Encephlopathy vs Electrolyte Imbalance - CT Head reviewed - UA culture-pending - Neuro Checks - Fall Precautions - Bedrest - Monitor CBC, BMP - Monitor vitals - Continue Zosyn for pseudomonal coverage 2. UTI - Urine Culture pending - Zosyn given in ED, will continue renal dosing - Appreciate ID Consult - Monitor vitals - INOs 3. ESRD - HD (M,W,F), last dialysis 04/21 - Appreciate Nephrology Consult for HD Management- notified by ED Attending - EKG reviewed 4. Elevated Troponin - Likely due to ESRD - Will trend Trop 5. HTN - Monitor BP - Will hold meds until patient is more arousable concern for Aspiration 6. CAD - s/p stent - Hold meds for now, till awake 7. CHF - CXR- chronic fluid volume overload - On exam- lung camacho clear 8. DM - BGMs - ISS 9. Anemia - Hgb 8.8 At baseline (7-11)] - Will transfuse if Hgb < 7.0 10. Hypothyroid - Continue Levothyroxine, when pt is able to swallow 11. HLD - See Above - Monitor LFTs 12. FEN - Fluid Restriction 1L - Replete lytes prn - NPO 13. DVT Prophylaxis - SCDs - Heparin SQ Code Status: DNR, HCP- daughter Ceci Dispo: Requires Inpatient Care Problem List - Problem (1) Altered mental status Code(s): R41.82 - ALTERED MENTAL STATUS, UNSPECIFIED Qualifiers: Altered mental status type: unspecified Qualified Code(s): R41.82 - Altered mental status, unspecified (2) Urinary tract infection Code(s): N39.0 - URINARY TRACT INFECTION, SITE NOT SPECIFIED Qualifiers: Urinary tract infection type: site unspecified Hematuria presence: with hematuria Qualified Code(s): N39.0 - Urinary tract infection, site not specified; R31.9 - Hematuria, unspecified; R31.9 - Hematuria, unspecified (3) ESRD on hemodialysis Code(s): N18.6 - END STAGE RENAL DISEASE; Z99.2 - DEPENDENCE ON RENAL DIALYSIS (4) Acute on chronic systolic and diastolic heart failure, NYHA class 3 Code(s): I50.43 - ACUTE ON CHRONIC COMBINED SYSTOLIC AND DIASTOLIC HRT FAIL (5) Anemia Code(s): D64.9 - ANEMIA, UNSPECIFIED (6) CAD (coronary artery disease) Code(s): I25.10 - ATHSCL HEART DISEASE OF COUNCIL CORONARY ARTERY W/O ANG PCTRS Qualifiers: (7) Coronary arteriosclerosis in [place] artery Code(s): I25.10 - ATHSCL HEART DISEASE OF COUNCIL CORONARY ARTERY W/O ANG PCTRS (8) Diabetes Code(s): E11.9 - TYPE 2 DIABETES MELLITUS WITHOUT COMPLICATIONS Qualifiers: (9) GERD (gastroesophageal reflux disease) Code(s): K21.9 - GASTRO-ESOPHAGEAL REFLUX DISEASE WITHOUT ESOPHAGITIS Qualifiers: (10) HTN (hypertension) Code(s): I10 - ESSENTIAL (PRIMARY) HYPERTENSION (11) History of percutaneous coronary intervention Code(s): Z98.89 - OTHER SPECIFIED POSTPROCEDURAL STATES * DO NOT USE * (12) Hypothyroidism Code(s): E03.9 - HYPOTHYROIDISM, UNSPECIFIED (13) Elevated troponin I level Code(s): R74.8 - ABNORMAL LEVELS OF OTHER SERUM ENZYMES Visit type - Emergency Visit Emergency Visit: Yes ED Registration Date: 04/21/17 Care time: The patient presented to the Emergency Department on the above date and was hospitalized for further evaluation of their emergent condition. - New Patient This patient is new to me today: Yes Date on this admission: 04/21/17 - Critical Care Critical Care patient: No
[2017-04-22 08:10] LABS: BASO % 0.9 % (0-2.0); EOS % 0.6 % (0-4.5); MCH 30.4 pg (25.7-33.7); MCHC 32.6 g/dl (32.0-36.0); MEAN CELL VOLUME 93.4 fl (80-96); MEAN PLT VOLUME 8.7 fl (7.5-11.1); NEUT % 81.8 % (42.8-82.8); PLATELET COUNT 131 K/MM3 (134-434); RDW 18.3 % (11.6-15.6); WHITE BLOOD COUNT 5.3 K/mm3 (4.0-10.0)
[2017-04-22 08:40] LABS: ANION GAP 12 (8-16); CALCIUM 8.9 mg/dL (8.5-10.1); CO2 25 mmol/L (21-32); GLUCOSE,RANDOM 133 mg/dL (74-106); MAGNESIUM 2.3 mg/dL (1.8-2.4)
[2017-04-22 08:41] LABS: CREATININE 3.5 mg/dL (0.55-1.02); PHOSPHOROUS 3.1 mg/dL (2.5-4.9)
[2017-04-22] MEDS ORDERED: HEPARIN NA (PORCINE) 5,000 UNITS/ML 1ML VIAL SQ SCH (10:00)
[2017-04-22] MEDS ORDERED: PIPERACILLIN/TAZOB 2.25 GM/50 ML PREMIX BAG IVPB SCH (10:00)
--- NOTE | 2017-04-22 10:25 | CON.NEP ---
Consult Consult Specialty:: Nephrology Referred by:: ED Reason for Consultation:: AMS in ESRD on HD - History of Present Illness Chief Complaint: AMS History of Present Illness: This is a 89 year old woman with PMhx of ESRD on HD, CAD s/p stent, CHF, Hypertension, Hyperlipidemia, Skin Ca, Hypothyrodism who presented from HD unit with AMS. As per family pt has been very lethargic since yesterday. Pt was recently started on Baclofen for neck pain. Pt also takes ambien to help her sleep. Pt is arouseable but quickly goes back to sleep. S/p full dialysis yesterday that she tolerated well. Her MS as pr HD unit staff seemed to improve to some degree with dialysis. - History Source History Provided By: Family Member Limitations to Obtaining History: Clinical Condition - Past Medical History [employer] CASHIER: Yes: Peripheral Neuropathy Cardio/Vascular: Yes: CAD, CHF, HTN, Hyperlipdemia, Other (S/P PCI/stent, chronic diastolic CHF) Gastrointestinal: Yes: Constipation, Gastritis, GERD, Peptic Ulcer Disease Renal/: Yes: Renal Failure, Hemodialysis ...: No Musculoskeletal: Yes: Osteoarthritis Endocrine: Yes: Diabetes Mellitus, Hypothyroidism - Past Surgical History Past Surgical History: Yes: AICD, AV Fistula/Graft, Cholecystectomy, Stent - Alcohol/Substance Use Hx Alcohol Use: No History of Substance Use: reports: None - Smoking History Smoking history: Unknown if ever smoked Have you smoked in the past 12 months: No Aproximately how many cigarettes per day: 0 If you are a former smoker, when did you quit?: 25 years - Social History ADL: Independent 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 History of Recent Travel: No Home Medications - Allergies Allergies/Adverse Reactions: Allergies Allergy/AdvReac Type Severity Reaction Status Date / Time codeine [Codeine] Allergy Mild Itching Verified 04/21/17 14:46 oxycodone HCl [From Percocet] Allergy Verified 04/21/17 14:46 - Home Medications Home Medications: Ambulatory Orders Levothyroxine [Synthroid -] 100 mcg PO DAILY 10/11/12 Pregabalin [Lyrica] 75 mg PO DAILY #0 capsule 02/27/13 Metoprolol Succinate [Toprol XL -] 50 mg PO ASDIR 03/09/15 Acetaminophen [Tylenol .Regular Strength -] 650 mg PO Q6H PRN #0 tablet Multivitamin/Iron/Folic Acid [Daily Vitamin Formula-Iron Tab] 1 each PO DAILY Simethicone [Mylicon -] 80 mg PO Q4H PRN #60 tab.chew 03/23/16 Sertraline HCl [Zoloft -] 50 mg PO DAILY 07/12/16 Ipratropium 0.02% Nebulizer [Atrovent 0.02% Nebulizer -] 1 amp NEB QID PRN 07/30 Sevelamer Carbonate [Renvela -] 800 mg PO TIDCM tab 08/06/16 Warfarin Sodium [Coumadin] 2 mg PO DAILY #30 tablet 08/07/16 Folic Acid/Vit Bcomp,C [Cassie-Mahendra Tablet] 0.8 mg PO DAILY 09/28/16 Ipratropium 0.02% Nebulizer [Atrovent 0.02% Nebulizer -] 1 neb NEB DAILY Midodrine HCl [Proamatine -] 10 mg PO MoWeFr@10 tablet 10/03/16 Naph,Mb-Db/K pH,Mbdb [PHOS-NaK PACKET -] 1 packet PO TID #90 misc 10/03/16 Pantoprazole Sodium [Protonix -] 40 mg PO BID #60 bot 10/03/16 Zolpidem Tartrate [Ambien] 5 mg PO HS PRN #0 tablet MDD 1 10/03/16 Baclofen 10 mg PO DAILY 04/21/17 Review of Systems Unable to obtain ROS, reason: clinical status Nephrology Consult - Height Height: 5 ft 4 in - Weight Weight: 63.957 kg - BMI Body Mass Index (BMI): 24.2 - Lab Results CBC,BMP: CBC, BMP 04/22/17 06:20 04/22/17 06:20 Anion Gap: Anion Gap Anion Gap 12 (8-16) 04/22/17 06:20 - Imaging Chest X-ray: Report Reviewed Cat Scan: Report Reviewed - Physical Examination Vital Signs: Vital Signs Temperature 97.9 F 04/22/17 09:00 Pulse Rate 93 H 04/22/17 09:00 Respiratory Rate 18 04/22/17 09:00 Blood Pressure 114/50 04/22/17 09:00 O2 Sat by Pulse Oximetry (%) 100 04/21/17 20:15 Constitutional: Yes: Well Nourished, No Distress, Calm HENT: Yes: Atraumatic Neck: Yes: Supple Cardiovascular: Yes: Regular Rate and Rhythm. No: JVD, Murmur, Rub Respiratory: Yes: Regular, CTA Bilaterally. No: Rales, Rhonchi Gastrointestinal: Yes: Normal Bowel Sounds, Soft. No: Distention, Tenderness Renal/: No: Bladder Distention Extremities: No: Cold, Cool, Cyanosis Edema: No Neurological: No: Alert, Oriented Assessment/Plan 89 year old woman with PMhx of ESRD on HD, CAD s/p stent, CHF, Hypertension, Hyperlipidemia, Skin Ca, Hypothyrodism who presented from HD unit with AMS. #AMS likely secondary to medications (baclofen/Lyrica/Ambien) but r/o UTI No studies to show that baclofen can be removed with dialysis but there do exist some case reports that showed improvement with dialysis will plan for 4hr Hd today for clearance monitor clinical status withhold any meds that can affect MS abnormal UA may just be a result of anuric/oliguric state and pooling of urine in the bladder (no leukocytosis or fever) f/u cultures continue abx for now #ESRD on HD s/p regular dialysis yesterday, will do another session for baclofen clearance dose all meds intermittent HD #Chronic Anemia no acute indication for transfusion Thank you Yahir Cortez DO
--- NOTE | 2017-04-22 12:37 | PN ---
Progress Note, Physician History of Present Illness: pt seen/ examined chart reviewed. lethargic but arousable denies pain. afebrile got one dose of zosyn--only no cultures send - Current Medication List Current Medications: Active Medications Acetaminophen (Tylenol -) 650 mg PO Q6H PRN PRN Reason: FEVER OR PAIN Ceftriaxone Sodium (Rocephin 1gm Ivpb (Pre-Docked)) 1 gm IVPB DAILY LINDA PRN Reason: Protocol Stop: 04/29/17 12:29 Ipratropium [place] (Atrovent 0.02% Nebulizer -) 1 amp NEB QID PRN PRN Reason: SHORTNESS OF BREATH Levothyroxine Sodium (Synthroid -) 100 mcg PO DAILY [facility] Metoprolol Succinate (Toprol Xl -) 50 mg PO ASDIR LINDA Midodrine (Proamatine -) 10 mg PO MoWeFr@10 [facility] Multivit/Ca Carb/B Cmplx/FA/Prenat (Nephro-Mahendra -) tablet PO DAILY [facility] Non-Formulary Medication (Multivitamin/Iron/Folic Acid [Daily Vitamin Formula- Iron Tab]) 1 each PO DAILY [facility] Pantoprazole Sodium (Protonix -) 40 mg PO BID [facility] Potassium Phos/Sodium Phos (Phos-Nak Packet -) 1 packet PO TID LINDA Pregabalin (Lyrica -) 75 mg PO DAILY LINDA Sertraline HCl (Zoloft -) 50 mg PO DAILY LINDA Sevelamer Carbonate (Renvela -) 800 mg PO TIDCM LINDA Simethicone (Mylicon -) 80 mg PO Q4H PRN PRN Reason: GAS Warfarin Sodium (Coumadin -) 2 mg PO DAILY [facility] - Objective Vital Signs: Vital Signs Temperature 97.9 F 04/22/17 09:00 Pulse Rate 93 H 04/22/17 09:00 Respiratory Rate 18 04/22/17 09:00 Blood Pressure 114/50 04/22/17 09:00 O2 Sat by Pulse Oximetry (%) 100 04/21/17 20:15 Constitutional: Yes: Calm, Mild Distress Eyes: Yes: Conjunctiva Clear Neck: Yes: Supple Cardiovascular: Yes: Pulse Irregular Respiratory: Yes: Diminished Gastrointestinal: Yes: Normal Bowel Sounds, Soft Edema: No Labs: CBC, BMP 04/22/17 06:20 04/22/17 06:20 INR, PTT INR 2.45 (0.82-1.09) H D 04/21/17 17:06 - ....Imaging Chest X-ray: Report Reviewed Cat Scan: Report Reviewed EKG: Report Reviewed Problem List - Problems (1) Altered mental status Code(s): R41.82 - ALTERED MENTAL STATUS, UNSPECIFIED Qualifiers: Altered mental status type: unspecified Qualified Code(s): R41.82 - Altered mental status, unspecified (2) Elevated troponin I level Code(s): R74.8 - ABNORMAL LEVELS OF OTHER SERUM ENZYMES (3) Urinary tract infection Code(s): N39.0 - URINARY TRACT INFECTION, SITE NOT SPECIFIED Qualifiers: Urinary tract infection type: site unspecified Hematuria presence: with hematuria Qualified Code(s): N39.0 - Urinary tract infection, site not specified; R31.9 - Hematuria, unspecified; R31.9 - Hematuria, unspecified (4) Anemia Code(s): D64.9 - ANEMIA, UNSPECIFIED (5) Atrial flutter Code(s): I48.92 - UNSPECIFIED ATRIAL FLUTTER Qualifiers: Atrial flutter type: typical Qualified Code(s): I48.3 - Typical atrial flutter (6) CAD (coronary artery disease) Code(s): I25.10 - ATHSCL HEART DISEASE OF [place] CORONARY ARTERY W/O ANG PCTRS Qualifiers: (7) ESRD on hemodialysis Code(s): N18.6 - END STAGE RENAL DISEASE; Z99.2 - DEPENDENCE ON RENAL DIALYSIS (8) Single implantable cardioverter-defibrillator (ICD) in situ Code(s): Z95.810 - PRESENCE OF AUTOMATIC (IMPLANTABLE) CARDIAC DEFIBRILLATOR Assessment/Plan Abx blood cultures suspect +ve troponins due to sepsis cardiology to evaluated abx- change to rocephin. dialysis per renal monitor inr check tsh will follow discussed with nursing staff. hold baclofen/ ambien dialysis today. meds were not ordered-- ordered. time spend - 35 min in reviewing records/ examining/ documenting .
[2017-04-22] MEDS ORDERED: IPRATROPIUM BR 0.02% 0.5 MG/2.5 ML VIAL.NEB. NEB PRN (13:04)
[2017-04-22] MEDS ORDERED: cefTRIAXone 1 GM/50 ML BAG (PRE-DOCKED) IVPB SCH (13:30)
[2017-04-22] MEDS: NAPH,MB-DB/K PH,MBDB POWDER PACKET PO SCH ×2 (16:00→21:26)
[2017-04-22] MEDS: WARFARIN NA 2 MG TABLET (UD) PO SCH (17:47)
[2017-04-22] MEDS: SEVELAMER CARBONATE 800 MG TAB (FP) PO SCH (17:47)
--- NOTE | 2017-04-22 20:41 | EKG ---
Test Reason : Blood Pressure : / mmHG Vent. Rate : 073 BPM Atrial Rate : 234 BPM P-R Int : 000 ms QRS Dur : 102 ms QT Int : 428 ms P-R-T Axes : 000 -06 190 degrees QTc Int : 471 ms ATRIAL FLUTTER WITH VARIABLE A-V BLOCK ANTERIOR INFARCT (CITED ON OR BEFORE 07-MAR-2015) ABNORMAL ECG WHEN COMPARED WITH ECG OF 28-SEP-2016 16:39, ATRIAL FLUTTER HAS REPLACED POSSIBLE JUNCTIONAL RHYTHM Confirmed by REINA ESQUEDA MD ([id number]) on 04/22/2017 8:41:12 PM Referred By: Confirmed By:REINA ESQUEDA MD
[2017-04-22] MEDS: PANTOPRAZOLE 40 MG TABLET (FP) PO SCH (21:33)
[2017-04-22] MEDS: SIMETHICONE 80 MG TAB.CHEW (FP) PO PRN (21:33)
[2017-04-22] MEDS: ACETAMINOPHEN 325 MG TABLET (FP) PO PRN (21:33)
[2017-04-22] MEDS ORDERED: SERTRALINE HCL 50 MG TABLET (FP) PO ONE (22:27)
[2017-04-23] MEDS: NAPH,MB-DB/K PH,MBDB POWDER PACKET PO SCH ×3 (05:18→21:40)
[2017-04-23] MEDS: LEVOTHYROXINE NA 100 MCG TABLET (FP) PO SCH (06:03)
[2017-04-23 07:05] LABS: INR 2.5 (0.82-1.09); PROTHROMBIN TIME (PATIENT) 28.2 SEC (9.98-11.88)
[2017-04-23 07:10] LABS: BASO % 0.4 % (0-2.0); EOS % 0.1 % (0-4.5); MEAN CELL VOLUME 93.9 fl (80-96); NEUT % 83.7 % (42.8-82.8); PLATELET COUNT 149 K/MM3 (134-434); RDW 18.5 % (11.6-15.6); WHITE BLOOD COUNT 7.2 K/mm3 (4.0-10.0)
[2017-04-23 07:18] LABS: ALBUMIN 2.9 g/dl (3.4-5.0); ANION GAP 11 (8-16); CALCIUM 8.6 mg/dL (8.5-10.1); CO2 26 mmol/L (21-32); GLUCOSE,RANDOM 206 mg/dL (74-106)
[2017-04-23 07:29] LABS: ALK PHOS 290 U/L (45-117); CREATININE 3.4 mg/dL (0.55-1.02); SGOT/AST 13 U/L (15-37); SGPT/ALT 16 U/L (12-78); THYROID STIMULATING HORMONE 6.58 uIU/ml (0.358-3.74); TOT PROT 6.6 g/dl (6.4-8.2)
[2017-04-23] MEDS: SEVELAMER CARBONATE 800 MG TAB (FP) PO SCH ×3 (08:21→18:21)
[2017-04-23] MEDS: CEFTRIAXONE 1 GM/50 ML PREMIX IVPB SCH (08:59)
[2017-04-23] MEDS: PANTOPRAZOLE 40 MG TABLET (FP) PO SCH ×2 (09:00→21:40)
[2017-04-23] MEDS: METOPROLOL SUCCINATE 50 MG TAB.SR.24H (FP) PO SCH (09:00)
[2017-04-23] MEDS: MULTIVITAMINS (DAILY MVI) TABLET (FP) PO SCH (09:00)
[2017-04-23] MEDS: VITAMIN B COMP W-C 1 EA TABLET PO SCH (09:00)
[2017-04-23] MEDS: PREGABALIN 75 MG CAPSULE PO SCH (09:00)
[2017-04-23] MEDS: SERTRALINE HCL 50 MG TABLET (FP) PO SCH (09:00)
[2017-04-23] MEDS ORDERED: BACLOFEN 10 MG TABLET (FP) PO SCH (10:00)
--- NOTE | 2017-04-23 11:01 | PN ---
Progress Note (short form) - Note Progress Note: Renal follow up for ESRD on HD with AMS Pt seen and examined at the bedside awake but confused and agitated s/p dialysis yesterday Vital Signs Temperature 98.2 F 04/23/17 05:57 Pulse Rate 115 H 04/23/17 05:57 Respiratory Rate 18 04/23/17 05:57 Blood Pressure 112/91 04/23/17 05:57 O2 Sat by Pulse Oximetry (%) 96 04/22/17 21:00 Intake & Output 04/20/17 04/21/17 04/22/17 04/23/17 23:59 23:59 23:59 23:59 Intake Total 60 Output Total 30 Balance -30 60 Weight 63.957 kg 63.957 kg NAD, agitated tachycardic No Le edema CBC, BMP 04/23/17 05:30 04/23/17 05:30 Current Medications Acetaminophen (Tylenol -) 650 mg PO Q6H PRN PRN Reason: FEVER OR PAIN Last Admin: 04/22/17 21:33 Dose: 650 mg Ipratropium [place] (Atrovent 0.02% Nebulizer -) 1 amp NEB QIDR PRN PRN Reason: SHORTNESS OF BREATH Levothyroxine Sodium (Synthroid -) 100 mcg PO DAILY@0700 [facility] Last Admin: 04/23/17 06:03 Dose: 100 mcg Metoprolol Succinate (Toprol Xl -) 50 mg PO SuTuThSa@1000 [facility] Last Admin: 04/23/17 09:00 Dose: 50 mg Midodrine (Proamatine -) 10 mg PO MoWeFr@10 [facility] Multivit/Ca Carb/B Cmplx/FA/Prenat (Nephro-Mahendra -) 1 tablet PO DAILY [facility] Last Admin: 04/23/17 09:00 Dose: 1 tablet Multivitamins/Minerals/Vitamin C (Tab-A-Vit -) 1 tab PO DAILY [facility] Last Admin: 04/23/17 09:00 Dose: 1 tab Pantoprazole Sodium (Protonix -) 40 mg PO BID [facility] Last Admin: 04/23/17 09:00 Dose: 40 mg Potassium Phos/Sodium Phos (Phos-Nak Packet -) 1 packet PO TID [facility] Last Admin: 04/23/17 05:18 Dose: 1 packet Pregabalin (Lyrica -) 75 mg PO DAILY [facility] Last Admin: 04/23/17 09:00 Dose: 75 mg Sertraline HCl (Zoloft -) 50 mg PO DAILY [facility] Last Admin: 04/23/17 09:00 Dose: 50 mg Sevelamer Carbonate (Renvela -) 800 mg PO TIDCM [facility] Last Admin: 04/23/17 08:21 Dose: 800 mg Simethicone (Mylicon -) 80 mg PO Q4H PRN PRN Reason: GAS Last Admin: 04/22/17 21:33 Dose: 80 mg Warfarin Sodium (Coumadin -) 2 mg PO DAILY@1800 [facility] Last Admin: 04/22/17 17:47 Dose: 2 mg 89 year old woman with PMhx of ESRD on HD, CAD s/p stent, CHF, Hypertension, Hyperlipidemia, Skin Ca, Hypothyrodism who presented from HD unit with AMS. #AMS likely secondary to medications (baclofen) but r/o UTI mental status improved today but appears agitated resume home dose of lyrica, zolfot today observe MS no aucte indication for [place] [place] today (would be cautious to place pt on dialysis when very agitated) #ESRD on HD next dialysis tomorrow #Chronic Anemia no acute indication for transfusion Thank you Yahir Cortez DO
[2017-04-23] MEDS ORDERED: ALPRAZolam 0.25 MG TABLET PO PRN (11:31)
--- NOTE | 2017-04-23 11:51 | PN ---
Progress Note (short form) - Note Progress Note: pt seen/ examined. events noted . was agitated earlier now calm/ happy alert and awake-- baseline family at bedside sitting in chair denies pain. Vital Signs Temp 98.3 F 04/23/17 10:00 Pulse 117 H 04/23/17 10:00 Resp 18 04/23/17 10:00 BP 120/63 04/23/17 10:00 Pulse Ox 96 04/23/17 09:00 Intake & Output 04/22/17 04/22/17 04/23/17 11:59 23:59 11:59 Intake Total 60 Balance 60 Weight 141 lb Intake: Oral 60 Other: Voiding Method Incontinent Incontinent Incontinent # Unmeasured Voids Straight Cath 1 2 Bowel Movement No No Height 5 ft 4 in Body Mass Index (BMI) 24.2 Active Medications Acetaminophen (Tylenol -) 650 mg PO Q6H PRN PRN Reason: FEVER OR PAIN Last Admin: 04/22/17 21:33 Dose: 650 mg Alprazolam (Xanax -) 0.25 mg PO Q8H PRN PRN Reason: ANXIETY Ipratropium [place] (Atrovent 0.02% Nebulizer -) 1 amp NEB QIDR PRN PRN Reason: SHORTNESS OF BREATH Levothyroxine Sodium (Synthroid -) 100 mcg PO DAILY@0700 [facility] Last Admin: 04/23/17 06:03 Dose: 100 mcg Metoprolol Succinate (Toprol Xl -) 50 mg PO SuTuThSa@1000 [facility] Last Admin: 04/23/17 09:00 Dose: 50 mg Midodrine (Proamatine -) 10 mg PO MoWeFr@10 [facility] Multivit/Ca Carb/B Cmplx/FA/Prenat (Nephro-Mahendra -) 1 tablet PO DAILY [facility] Last Admin: 04/23/17 09:00 Dose: 1 tablet Multivitamins/Minerals/Vitamin C (Tab-A-Vit -) 1 tab PO DAILY [facility] Last Admin: 04/23/17 09:00 Dose: 1 tab Pantoprazole Sodium (Protonix -) 40 mg PO BID [facility] Last Admin: 04/23/17 09:00 Dose: 40 mg Potassium Phos/Sodium Phos (Phos-Nak Packet -) 1 packet PO TID [facility] Last Admin: 04/23/17 05:18 Dose: 1 packet Pregabalin (Lyrica -) 75 mg PO DAILY [facility] Last Admin: 04/23/17 09:00 Dose: 75 mg Sertraline HCl (Zoloft -) 50 mg PO DAILY [facility] Last Admin: 04/23/17 09:00 Dose: 50 mg Sevelamer Carbonate (Renvela -) 800 mg PO TIDCM [facility] Last Admin: 04/23/17 08:21 Dose: 800 mg Simethicone (Mylicon -) 80 mg PO Q4H PRN PRN Reason: GAS Last Admin: 04/22/17 21:33 Dose: 80 mg Warfarin Sodium (Coumadin -) 2 mg PO DAILY@1800 [facility] Last Admin: 04/22/17 17:47 Dose: 2 mg CBC, BMP 04/23/17 05:30 04/23/17 05:30 Physical Exam. Constitutional: Yes: Calm,comfortable Eyes: Yes: Conjunctiva Clear Neck: Yes: Supple/ no jvd Cardiovascular: Yes: Pulse Irregular Respiratory: Yes: Diminished Gastrointestinal: Yes: Normal Bowel Sounds, Soft/ non tender Edema: No - ....Imaging Chest X-ray: Report Reviewed Cat Scan: Report Reviewed EKG: Report Reviewed Assessment/Plan Clinically much better continue present care xanax for anxiety physical therapy f/u cultures abx dialysis tomorrow will follow. discussed with family in detail time spend in examining / documenting and coordating care- 30 min. Problem List - Problems (1) Altered mental status Code(s): R41.82 - ALTERED MENTAL STATUS, UNSPECIFIED Qualifiers: Altered mental status type: unspecified Qualified Code(s): R41.82 - Altered mental status, unspecified (2) Elevated troponin I level Code(s): R74.8 - ABNORMAL LEVELS OF OTHER SERUM ENZYMES (3) Urinary tract infection Code(s): N39.0 - URINARY TRACT INFECTION, SITE NOT SPECIFIED Qualifiers: Urinary tract infection type: site unspecified Hematuria presence: with hematuria Qualified Code(s): N39.0 - Urinary tract infection, site not specified; R31.9 - Hematuria, unspecified; R31.9 - Hematuria, unspecified (4) Anemia Code(s): D64.9 - ANEMIA, UNSPECIFIED (5) Atrial flutter Code(s): I48.92 - UNSPECIFIED ATRIAL FLUTTER Qualifiers: Atrial flutter type: typical Qualified Code(s): I48.3 - Typical atrial flutter (6) CAD (coronary artery disease) Code(s): I25.10 - ATHSCL HEART DISEASE OF [place] CORONARY ARTERY W/O ANG PCTRS Qualifiers: (7) ESRD on hemodialysis Code(s): N18.6 - END STAGE RENAL DISEASE; Z99.2 - DEPENDENCE ON RENAL DIALYSIS (8) Single implantable cardioverter-defibrillator (ICD) in situ Code(s): Z95.810 - PRESENCE OF AUTOMATIC (IMPLANTABLE) CARDIAC DEFIBRILLATOR
[2017-04-23 18:55] LABS: BASO % 0.2 % (0-2.0); EOS % 0.2 % (0-4.5); MCH 30.1 pg (25.7-33.7); MCHC 31.8 g/dl (32.0-36.0); MEAN CELL VOLUME 94.7 fl (80-96); MEAN PLT VOLUME 9.1 fl (7.5-11.1); PLATELET COUNT 146 K/MM3 (134-434); RDW 18.8 % (11.6-15.6); WHITE BLOOD COUNT 6.4 K/mm3 (4.0-10.0)
[2017-04-23] MEDS: WARFARIN NA 2 MG TABLET (UD) PO SCH (21:37)
[2017-04-23] MEDS: ARTIFICIAL TEARS (POLYVINYL ALCOHOL 1.4%) OPTH DROPS OU SCH (21:40)
[2017-04-24] MEDS: NAPH,MB-DB/K PH,MBDB POWDER PACKET PO SCH ×3 (05:50→21:19)
[2017-04-24] MEDS ORDERED: HEPARIN NA (PORCINE) 5,000 UNITS/ML 1ML VIAL IVPUSH ONE ×2 (06:00→16:45)
[2017-04-24] MEDS: LEVOTHYROXINE NA 100 MCG TABLET (FP) PO SCH (06:49)
[2017-04-24 08:06] LABS: INR 2.47 (0.82-1.09); PROTHROMBIN TIME (PATIENT) 27.9 SEC (9.98-11.88)
[2017-04-24] MEDS ORDERED: PT OWN MED DRAWER 7, Y5N ONE ×2 (09:08→20:38)
--- NOTE | 2017-04-24 09:08 | DS ---
Physical Examination Vital Signs: Vital Signs Temperature 98.4 F 04/24/17 05:27 Pulse Rate 108 H 04/24/17 05:27 Respiratory Rate 20 04/24/17 05:27 Blood Pressure 116/70 04/24/17 05:27 O2 Sat by Pulse Oximetry (%) 96 04/23/17 09:00 Findings/Remarks: patient seen and examined today. Comfortable family at bedside Alert and awake Denies chest pain or shortness of breath Constitutional: Yes: No Distress Eyes: Yes: Conjunctiva Clear Neck: Yes: Supple Cardiovascular: Yes: Pulse Irregular. No: Regular Rate and Rhythm Respiratory: Yes: Diminished Gastrointestinal: Yes: Soft Edema: No Neurological: Yes: Alert Psychiatric: Yes: Alert Labs: CBC, BMP 04/23/17 17:50 04/23/17 05:30 Discharge Summary Reason For Visit: ALTERED MENTAL STATUS Current Active Problems Altered mental status (Acute) Elevated troponin I level (Acute) Urinary tract infection (Acute) Hospital Course: patient admitted for altered mental status Likely toxic metabolic and Nephropathy--due to UTI as well as medications Treated with antibiotics Much improved and back to baseline Baclofen and Ambien discontinued Urinalysis positive for UTI Urine culture negative No stable for discharge Will discharge on by mouth antibiotics for 2 days We will dialyze here before discharge Medications reconciled and discussed with patient's family They agree with same. Condition: Fair - Instructions Referrals: Dariela Milian MD [Primary Care Provider] - Disposition: NURSING HOME FACILITY - Home Medications Comprehensive Discharge Medication List: Ambulatory Orders Levothyroxine [Synthroid -] 100 mcg PO DAILY 10/11/12 Pregabalin [Lyrica] 75 mg PO DAILY #0 capsule 02/27/13 Metoprolol Succinate [Toprol XL -] 50 mg PO ASDIR 03/09/15 Acetaminophen [Tylenol .Regular Strength -] 650 mg PO Q6H PRN #0 tablet Multivitamin/Iron/Folic Acid [Daily Vitamin Formula-Iron Tab] 1 each PO DAILY Simethicone [Mylicon -] 80 mg PO Q4H PRN #60 tab.chew 03/23/16 Sertraline HCl [Zoloft -] 50 mg PO DAILY 07/12/16 Sevelamer Carbonate [Renvela -] 800 mg PO TIDCM tab 08/06/16 Warfarin Sodium [Coumadin] 2 mg PO DAILY #30 tablet 08/07/16 Folic Acid/Vit Bcomp,C [Cassie-Mahendra Tablet] 0.8 mg PO DAILY 09/28/16 Ipratropium 0.02% Nebulizer [Atrovent 0.02% Nebulizer -] 1 neb NEB DAILY Midodrine HCl [Proamatine -] 10 mg PO MoWeFr@10 tablet 10/03/16 Naph,Mb-Db/K pH,Mbdb [PHOS-NaK PACKET -] 1 packet PO TID #90 misc 10/03/16 Pantoprazole Sodium [Protonix -] 40 mg PO BID #60 bot 10/03/16 Alprazolam [Xanax] 0.25 mg PO Q8H PRN #30 tablet MDD 2 04/24/17 Ciprofloxacin [Cipro -] 250 mg PO BID #6 tablet 04/24/17
[2017-04-24] MEDS: VITAMIN B COMP W-C 1 EA TABLET PO SCH (10:04)
[2017-04-24] MEDS: SEVELAMER CARBONATE 800 MG TAB (FP) PO SCH ×3 (10:04→18:38)
[2017-04-24] MEDS: SERTRALINE HCL 50 MG TABLET (FP) PO SCH (10:04)
[2017-04-24] MEDS: MULTIVITAMINS (DAILY MVI) TABLET (FP) PO SCH (10:04)
[2017-04-24] MEDS: PREGABALIN 75 MG CAPSULE PO SCH (10:04)
[2017-04-24] MEDS: MIDODRINE HCL 5 MG TABLET PO SCH (10:05)
[2017-04-24] MEDS: PANTOPRAZOLE 40 MG TABLET (FP) PO SCH ×2 (10:05→21:18)
[2017-04-24] MEDS: ARTIFICIAL TEARS (POLYVINYL ALCOHOL 1.4%) OPTH DROPS OU SCH ×2 (10:06→21:19)
[2017-04-24] MEDS: CEFTRIAXONE 1 GM/50 ML PREMIX IVPB SCH (10:06)
--- NOTE | 2017-04-24 11:48 | CON.CARD ---
Consult Consult Specialty:: Cardiology Referred by:: Norma Oropeza MD Reason for Consultation:: Demand ischemia - History of Present Illness Chief Complaint: Altered mental status History of Present Illness: Patient is an 89 year old female with underlying history of CAD s/p PCI (BMS to LCX), LV systolic dysfunction with history of LV failure, post ICD, HTN/HCVD, type 2 DM with neuropathy, hypercholesterolemia, hypothyroidism, ESRD on HD (M,W ,F), history of gait disturbances, afib on coumadin per INR admitted for altered mental status referable to starting Baclofen since resolved, sensorium back to baseline. She denies chest pain, dyspnea, near or true syncope, orthopnea, PND or LE edema. - History Source History Provided By: Patient Limitations to Obtaining History: No Limitations - Past Medical History ENVIRONMENTAL ASSOCIATE: Yes: Peripheral Neuropathy Cardio/Vascular: Yes: CAD, CHF, HTN, Hyperlipdemia, Other (S/P PCI/stent, chronic diastolic CHF) Gastrointestinal: Yes: Constipation, Gastritis, GERD, Peptic Ulcer Disease Renal/: Yes: Renal Failure, Hemodialysis ...: No Musculoskeletal: Yes: Osteoarthritis Endocrine: Yes: Diabetes Mellitus, Hypothyroidism - Past Surgical History Past Surgical History: Yes: AICD, AV Fistula/Graft, Cholecystectomy, Stent - Alcohol/Substance Use Hx Alcohol Use: No History of Substance Use: reports: None - Smoking History Smoking history: Unknown if ever smoked Have you smoked in the past 12 months: No Aproximately how many cigarettes per day: 0 If you are a former smoker, when did you quit?: 25 years - Social History ADL: Independent 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 History of Recent Travel: No Home Medications - Allergies Allergies/Adverse Reactions: Allergies Allergy/AdvReac Type Severity Reaction Status Date / Time codeine [Codeine] Allergy Mild Itching Verified 04/21/17 14:46 oxycodone HCl [From Percocet] Allergy Verified 04/21/17 14:46 - Home Medications Home Medications: Ambulatory Orders Levothyroxine [Synthroid -] 100 mcg PO DAILY 10/11/12 Pregabalin [Lyrica] 75 mg PO DAILY #0 capsule 02/27/13 Metoprolol Succinate [Toprol XL -] 50 mg PO ASDIR 03/09/15 Acetaminophen [Tylenol .Regular Strength -] 650 mg PO Q6H PRN #0 tablet Multivitamin/Iron/Folic Acid [Daily Vitamin Formula-Iron Tab] 1 each PO DAILY Simethicone [Mylicon -] 80 mg PO Q4H PRN #60 tab.chew 03/23/16 Sertraline HCl [Zoloft -] 50 mg PO DAILY 07/12/16 Sevelamer Carbonate [Renvela -] 800 mg PO TIDCM tab 08/06/16 Warfarin Sodium [Coumadin] 2 mg PO DAILY #30 tablet 08/07/16 Folic Acid/Vit Bcomp,C [Cassie-Mahendra Tablet] 0.8 mg PO DAILY 09/28/16 Ipratropium 0.02% Nebulizer [Atrovent 0.02% Nebulizer -] 1 neb NEB DAILY Midodrine HCl [Proamatine -] 10 mg PO MoWeFr@10 tablet 10/03/16 Naph,Mb-Db/K pH,Mbdb [PHOS-NaK PACKET -] 1 packet PO TID #90 misc 10/03/16 Pantoprazole Sodium [Protonix -] 40 mg PO BID #60 bot 10/03/16 Alprazolam [Xanax] 0.25 mg PO Q8H PRN #30 tablet MDD 2 04/24/17 Ciprofloxacin [Cipro -] 250 mg PO BID #6 tablet 04/24/17 Review of Systems Findings/Remarks: None Vital Signs: Vital Signs Temperature 98 F 04/24/17 10:01 Pulse Rate 99 H 04/24/17 10:01 Respiratory Rate 18 04/24/17 10:01 Blood Pressure 113/59 04/24/17 10:01 O2 Sat by Pulse Oximetry (%) 96 04/23/17 09:00 Constitutional: Yes: No Distress, Calm Neck: Yes: Supple Respiratory: Yes: Regular, Diminished Gastrointestinal: Yes: Normal Bowel Sounds, Soft Cardiovascular: Yes: Pulse Irregular JVD: No Carotid Bruit: No Heart Sounds: Yes: S1, S2 Murmur: Yes: Systolic Murmur, Grade 2 Edema: Yes Edema: LLE: 1+, RLE: 1+ Integumentary: Yes: Venous Stasis Changes - Other Data Labs, Other Data: CBC, BMP 04/23/17 17:50 04/23/17 05:30 INR, PTT INR 2.47 (0.82-1.09) H 04/24/17 06:00 Afib @ 73 PRWP Problem List - Problems (1) Elevated troponin I level Code(s): R74.8 - ABNORMAL LEVELS OF OTHER SERUM ENZYMES (2) Anemia Code(s): D64.9 - ANEMIA, UNSPECIFIED Qualifiers: Chronic kidney disease stage: on chronic dialysis (3) Aortic stenosis Code(s): I35.0 - NONRHEUMATIC AORTIC (VALVE) STENOSIS Qualifiers: Cardiac valve disease etiology: nonrheumatic Qualified Code(s): I35.0 - Nonrheumatic aortic (valve) stenosis (4) Atrial flutter Code(s): I48.92 - UNSPECIFIED ATRIAL FLUTTER Qualifiers: Atrial flutter type: typical Qualified Code(s): I48.3 - Typical atrial flutter (5) CAD (coronary artery disease) Code(s): I25.10 - ATHSCL HEART DISEASE OF [place] CORONARY ARTERY W/O ANG PCTRS Qualifiers: Coronary Disease-Associated Artery/Lesion type: [place] artery [place] vs. transplanted heart: [place] heart Associated angina: without angina Qualified Code(s): I25.10 - Atherosclerotic heart disease of [place] coronary artery without angina pectoris (6) ESRD on hemodialysis Code(s): N18.6 - END STAGE RENAL DISEASE; Z99.2 - DEPENDENCE ON RENAL DIALYSIS (7) History of percutaneous coronary intervention Code(s): Z98.89 - OTHER SPECIFIED POSTPROCEDURAL STATES * DO NOT USE * (8) Hyperlipidemia Code(s): E78.5 - HYPERLIPIDEMIA, UNSPECIFIED Qualifiers: Hyperlipidemia type: pure hypercholesterolemia Qualified Code(s): E78.00 - Pure hypercholesterolemia, unspecified (9) Hypothyroidism Code(s): E03.9 - HYPOTHYROIDISM, UNSPECIFIED Qualifiers: Hypothyroidism type: unspecified Qualified Code(s): E03.9 - Hypothyroidism , unspecified (10) Single implantable cardioverter-defibrillator (ICD) in situ Code(s): Z95.810 - PRESENCE OF AUTOMATIC (IMPLANTABLE) CARDIAC DEFIBRILLATOR (11) Subendocardial ischemia Code(s): I24.8 - OTHER FORMS OF ACUTE ISCHEMIC HEART DISEASE (12) Systolic dysfunction without heart failure Code(s): I51.9 - HEART DISEASE, UNSPECIFIED Assessment/Plan 1. AMS likely secondary to medications (baclofen) but r/o UTI 2. Persistentl atrial fibrillation/flutter with therapeutic INR 3. 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 Elevated troponin - subendocardial ischemia 5. CAD, s/p PCI/stent, angina 6. 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 Type 2 DM 8. Hypercholesterolemia 9. Mild aortic valve stenosis and aortic valve regurgitation 10. Anemia and thrombocytopenia 11. Hypothyroidism 12. Hiatal hernia and gastric ulcer on EGD - currently appears stable PLAN: 1. Continue Coumadin per INR 2. Continue Metoprolol ER 50 mg, Midodrine 10 mg MWF with HD 3. ICD interrogation as outpatient 4. HD as per renal service - transfusion PRBC as needed 5. GI protection
[2017-04-24 16:58] LABS: MCH 30.5 pg (25.7-33.7); MCHC 32.4 g/dl (32.0-36.0); PLATELET COUNT 136 K/MM3 (134-434); RDW 18.7 % (11.6-15.6); WHITE BLOOD COUNT 6.3 K/mm3 (4.0-10.0)
[2017-04-24 17:28] LABS: ANION GAP 8 (8-16); CO2 28 mmol/L (21-32); CREATININE 5.1 mg/dL (0.55-1.02); GLUCOSE,RANDOM 192 mg/dL (74-106)
[2017-04-24] MEDS: WARFARIN NA 2 MG TABLET (UD) PO SCH (21:18)
[2017-04-24] MEDS: SIMETHICONE 80 MG TAB.CHEW (FP) PO PRN (21:22)
[2017-04-24] MEDS: BACITRACIN 15 GM TUBE TOPICAL OINTMENT TP SCH (22:16)
[2017-04-25] MEDS: SIMETHICONE 80 MG TAB.CHEW (FP) PO PRN ×2 (01:27→18:12)
[2017-04-25] MEDS: NAPH,MB-DB/K PH,MBDB POWDER PACKET PO SCH ×3 (06:25→22:26)
[2017-04-25] MEDS: LEVOTHYROXINE NA 100 MCG TABLET (FP) PO SCH (06:25)
[2017-04-25 08:13] LABS: INR 2.1 (0.82-1.09); PROTHROMBIN TIME (PATIENT) 23.7 SEC (9.98-11.88)
--- NOTE | 2017-04-25 08:54 | PN ---
Progress Note (short form) - Note Progress Note: patient seen in her room today spoke with the daughter who is in the room patient is back to her baseline mental status Left ARM - noted to be swollen -distal to fistula? dependant LAF- positive bruit denies chest pain, sob, abdominal pain had one BM today am daughter would like to have vascular evaluate the fistula before her mother go back to [facility] Vital Signs Temp 98.2 F 04/25/17 06:00 Pulse 109 H 04/25/17 06:00 Resp 20 04/25/17 06:00 BP 130/63 04/25/17 06:00 Pulse Ox 98 04/24/17 21:00 Intake & Output 04/24/17 04/24/17 04/25/17 11:59 23:59 11:59 Intake Total 450 Balance 450 Weight 138 lb 6.4 oz Intake: IV 0 s/l 0 IVPB 50 Oral 400 Other: Voiding Method Toilet Toilet Toilet # Unmeasured Voids Straight Cath 2 2 Void 1 Bowel Movement No Yes # Bowel Movements 1 Weight Measurement Method Chair Scale Active Medications Acetaminophen (Tylenol -) 650 mg PO Q6H PRN PRN Reason: FEVER OR PAIN Last Admin: 04/22/17 21:33 Dose: 650 mg Alprazolam (Xanax -) 0.25 mg PO Q8H PRN PRN Reason: ANXIETY Artificial Tears (Artificial Tears) 1 drop OU BID [facility] Last Admin: 04/24/17 21:19 Dose: 1 drop Bacitracin (Bacitracin -) 1 applic TP DAILY [facility] Last Admin: 04/24/17 22:16 Dose: 1 applic Ipratropium [place] (Atrovent 0.02% Nebulizer -) 1 amp NEB QIDR PRN PRN Reason: SHORTNESS OF BREATH Levothyroxine Sodium (Synthroid -) 100 mcg PO DAILY@0700 [facility] Last Admin: 04/25/17 06:25 Dose: 100 mcg Metoprolol Succinate (Toprol Xl -) 50 mg PO SuTuThSa@1000 [facility] Last Admin: 04/23/17 09:00 Dose: 50 mg Midodrine (Proamatine -) 10 mg PO MoWeFr@10 [facility] Last Admin: 04/24/17 10:05 Dose: 10 mg Multivit/Ca Carb/B Cmplx/FA/Prenat (Nephro-Mahendra -) 1 tablet PO DAILY [facility] Last Admin: 04/24/17 10:04 Dose: 1 tablet Multivitamins/Minerals/Vitamin C (Tab-A-Vit -) 1 tab PO DAILY [facility] Last Admin: 04/24/17 10:04 Dose: 1 tab Pantoprazole Sodium (Protonix -) 40 mg PO BID [facility] Last Admin: 04/24/17 21:18 Dose: 40 mg Potassium Phos/Sodium Phos (Phos-Nak Packet -) 1 packet PO TID [facility] Last Admin: 04/25/17 06:25 Dose: 1 packet Pregabalin (Lyrica -) 75 mg PO DAILY [facility] Last Admin: 04/24/17 10:04 Dose: 75 mg Sertraline HCl (Zoloft -) 50 mg PO DAILY [facility] Last Admin: 04/24/17 10:04 Dose: 50 mg Sevelamer Carbonate (Renvela -) 800 mg PO TIDCM [facility] Last Admin: 04/24/17 18:38 Dose: Not Given Simethicone (Mylicon -) 80 mg PO Q4H PRN PRN Reason: GAS Last Admin: 04/25/17 01:27 Dose: 80 mg Warfarin Sodium (Coumadin -) 2 mg PO DAILY@1800 [facility] Last Admin: 04/24/17 21:18 Dose: 2 mg Laboratory Results - last 24 hr 04/22/17 04/24/17 04/24/17 19:00 15:40 15:40 WBC 6.3 RBC 2.75 L Hgb 8.4 L Hct 25.8 L MCV 94.0 MCH 30.5 MCHC 32.4 RDW 18.7 H Plt Count 136 MPV 9.0 PT with INR INR Sodium 141 Potassium 4.7 Chloride 105 Carbon Dioxide 28 Anion Gap 8 BUN 45 H D Creatinine 5.1 H D Random Glucose 192 H Calcium 8.0 L Hepatitis C Antibody 0.1 04/25/17 06:00 WBC RBC Hgb Hct MCV MCH MCHC RDW Plt Count MPV PT with INR 23.70 H INR 2.10 H Sodium Potassium Chloride Carbon Dioxide Anion Gap BUN Creatinine Random Glucose Calcium Hepatitis C Antibody PE N- alert, oriented cvs-s1s2, irregular, systolic murmur lungs- clear abd- soft, nt, nd LE- trace edema left arm- left AVF- positive bruit swelling distal to fistula -/ dependant no redness/ A/P 1. Status post toxic metabolic encephalopathy- multiple causes -most likely related to poly pharmacy- ambien/baclofen -ambien and baclofen d/cd -received extra dialysis session for baclofen clearance UA - positive for UTI UC - negative treated with rocephin emperically patient improved significantly will discharge on oral antibiotics 2. Left arm- fistula site Swelling/edema - vascular evaluation - duplex- r/o DVT- highly unlikely as patient is on a/c 3.Chronic anemia anemia of CKD - MONITOR Stable CBC 4.CAD, h/o stenting -no active issues mild troponin elevation trending down most likely due to ESRD 5.Presence of AICD/PPM -EF-17% 2016 Severe TR on BB 6. History of GIB History of pyloric ulcer -ON PPI monitor cbc - Problem List - Problems (1) History of GI bleed Code(s): Z87.19 - PERSONAL HISTORY OF OTHER DISEASES OF THE DIGESTIVE SYSTEM (2) Left arm swelling Code(s): M79.89 - OTHER SPECIFIED SOFT TISSUE DISORDERS (3) Urinary tract infection Code(s): N39.0 - URINARY TRACT INFECTION, SITE NOT SPECIFIED Qualifiers: Urinary tract infection type: site unspecified Hematuria presence: with hematuria Qualified Code(s): N39.0 - Urinary tract infection, site not specified; R31.9 - Hematuria, unspecified; R31.9 - Hematuria, unspecified (4) Acute on chronic systolic and diastolic heart failure, NYHA class 3 Code(s): I50.43 - ACUTE ON CHRONIC COMBINED SYSTOLIC AND DIASTOLIC HRT FAIL (5) ESRD on hemodialysis Code(s): N18.6 - END STAGE RENAL DISEASE; Z99.2 - DEPENDENCE ON RENAL DIALYSIS
[2017-04-25 09:19] LABS: MEAN CELL VOLUME 93.6 fl (80-96); MEAN PLT VOLUME 8.8 fl (7.5-11.1); PLATELET COUNT 116 K/MM3 (134-434); RDW 18.4 % (11.6-15.6); WHITE BLOOD COUNT 5.1 K/mm3 (4.0-10.0)
--- NOTE | 2017-04-25 09:30 | PN ---
Progress Note (short form) - Note Progress Note: pt seen/ examined with RIG[employer]ING [employer]EM[employer] Yessenia. case discussed Documentation reviewed. Agree with current management. Discussed with Nursing staff also. also discussed with pts daughter regarding egd pt never had f/u egd --- advised in 3 months - after gi bleed 09/28. not active bleeding. will consult Dr. Magana Will follow. Problem List - Problems (1) Altered mental status Code(s): R41.82 - ALTERED MENTAL STATUS, UNSPECIFIED Qualifiers: Altered mental status type: unspecified Qualified Code(s): R41.82 - Altered mental status, unspecified (2) Elevated troponin I level Code(s): R74.8 - ABNORMAL LEVELS OF OTHER SERUM ENZYMES (3) Urinary tract infection Code(s): N39.0 - URINARY TRACT INFECTION, SITE NOT SPECIFIED Qualifiers: Urinary tract infection type: site unspecified Hematuria presence: with hematuria Qualified Code(s): N39.0 - Urinary tract infection, site not specified; R31.9 - Hematuria, unspecified; R31.9 - Hematuria, unspecified (4) Anemia Code(s): D64.9 - ANEMIA, UNSPECIFIED Qualifiers: Chronic kidney disease stage: on chronic dialysis (5) Atrial flutter Code(s): I48.92 - UNSPECIFIED ATRIAL FLUTTER Qualifiers: Atrial flutter type: typical Qualified Code(s): I48.3 - Typical atrial flutter (6) CAD (coronary artery disease) Code(s): I25.10 - ATHSCL HEART DISEASE OF [place] CORONARY ARTERY W/O ANG PCTRS Qualifiers: Coronary Disease-Associated Artery/Lesion type: [place] artery [place] vs. transplanted heart: [place] heart Associated angina: without angina Qualified Code(s): I25.10 - Atherosclerotic heart disease of [place] coronary artery without angina pectoris (7) ESRD on hemodialysis Code(s): N18.6 - END STAGE RENAL DISEASE; Z99.2 - DEPENDENCE ON RENAL DIALYSIS (8) Single implantable cardioverter-defibrillator (ICD) in situ Code(s): Z95.810 - PRESENCE OF AUTOMATIC (IMPLANTABLE) CARDIAC DEFIBRILLATOR
--- NOTE | 2017-04-25 09:55 | CONSULT ---
<Qasim Valdez P - Last Filed: 04/25/17 10:13> - Consultation REQUESTING PROVIDER: Dino Munguia - Vascular Surgery CONSULT REQUEST: We have been asked to surgically evaluate this patient for LUE swelling PCP: Norma Oropeza HPI: Called to salty 89 yo female with PMHx noted below. Sent in from OR secondary to confusion/AMS. S/p HD 04/24/17 and noted her LUE is swollen. While in ED, patient had Chest Xray - neg infiltrate, no pleural effusion. mild chronic volume overload, cardiomegaly. Her urine was tested and showed +2 leukocyte esterase, +3 blood, +1 protein. Currently, patient is alert and able to communicate very well. Daughter at bedside. Denies n/v/f/c, CP, SOB, VALDEZ, weakness, numbness, tingling PMHx: ESRD (HD:M,W,F), CAD stent, Chronic diastolic CHF, HTN, HLD, Skin CA, Hypothyroid, Peripheral Neuropathy, Constipation, Gastritis, GERD, Peptic Ulcer Disease, OA, DM PSHx: AICD (R-sided), LUE AV Fistula, Cholecystectomy Social History: Lives in a SNF Home Meds: Levothyroxine [Synthroid -] 100 mcg PO DAILY 10/11/12 Pregabalin [Lyrica] 75 mg PO DAILY #0 capsule 02/27/13 Metoprolol Succinate [Toprol XL -] 50 mg PO ASDIR 03/09/15 Acetaminophen [Tylenol .Regular Strength -] 650 mg PO Q6H PRN #0 tablet Multivitamin/Iron/Folic Acid [Daily Vitamin Formula-Iron Tab] 1 each PO DAILY Simethicone [Mylicon -] 80 mg PO Q4H PRN #60 tab.chew 03/23/16 Sertraline HCl [Zoloft -] 50 mg PO DAILY 07/12/16 Ipratropium 0.02% Nebulizer [Atrovent 0.02% Nebulizer -] 1 amp NEB QID PRN 07/30 Sevelamer Carbonate [Renvela -] 800 mg PO TIDCM tab 08/06/16 Warfarin Sodium [Coumadin] 2 mg PO DAILY #30 tablet 08/07/16 Folic Acid/Vit Bcomp,C [Cassie-Mahendra Tablet] 0.8 mg PO DAILY 09/28/16 Ipratropium 0.02% Nebulizer [Atrovent 0.02% Nebulizer -] 1 neb NEB DAILY Midodrine HCl [Proamatine -] 10 mg PO MoWeFr@10 tablet 10/03/16 Naph,Mb-Db/K pH,Mbdb [PHOS-NaK PACKET -] 1 packet PO TID #90 misc 10/03/16 Pantoprazole Sodium [Protonix -] 40 mg PO BID #60 bot 10/03/16 Zolpidem Tartrate [Ambien] 5 mg PO HS PRN #0 tablet MDD 1 10/03/16 Baclofen 10 mg PO DAILY 04/21/17 Allergies: codeine [Codeine] Allergy (Mild, Verified 04/21/17 14:46) Itching ROS: All systems reviewed and considered negative except for whats contained in HPI. PE: GENERAL: Awake, alert, and fully oriented, in no acute distress. HEAD: NC. AT. LUNGS: CTA bilat anteriorly HEART: RRR ABDOMEN: Soft, NT. ND. MUSCULOSKELETAL: No CVAT UE: RUE unremarkable. LUE: Swelling from mid-bicep --> hand, 2+ radial pulse, warm, well-perfused. Cap refill <2 seconds. + bruit LE: 2+ pulses, warm, well-perfused. No calf tenderness. No peripheral edema. NEUROLOGICAL: Normal speech, gait not observed. PSYCH: Cooperative. Good eye contact. Appropriate mood and affect. Last Vital Signs Temp Pulse Resp BP Pulse Ox 98.2 F 109 H 20 130/63 98 04/25/17 06:00 04/25/17 06:00 04/25/17 06:00 04/25/17 06:00 04/24/17 21:00 CBC, BMP 04/25/17 06:25 04/24/17 15:40 Hepatic Panel Total Bilirubin 1.0 mg/dL (0.2-1.0) D 04/23/17 05:30 AST 13 U/L (15-37) L 04/23/17 05:30 ALT 16 U/L (12-78) 04/23/17 05:30 Alkaline Phosphatase 290 U/L (45-117) H 04/23/17 05:30 Albumin 2.9 g/dl (3.4-5.0) L 04/23/17 05:30 INR, PTT INR 2.10 (0.82-1.09) H 04/25/17 06:00 Blood Type Blood Type O NEGATIVE 04/21/17 17:06 Urine Results Urine Color Yellow 04/21/17 16:58 Urine Appearance Cloudy 04/21/17 16:58 Urine pH 7.0 (5.0-8.0) 04/21/17 16:58 Ur Specific [place] 1.011 (1.001-1.035) 04/21/17 16:58 Urine Protein 1+ (NEGATIVE) H 04/21/17 16:58 Urine Glucose (UA) Negative (NEGATIVE) 04/21/17 16:58 Urine Ketones Negative (NEGATIVE) 04/21/17 16:58 Urine Blood 3+ (NEGATIVE) H 04/21/17 16:58 Urine Nitrite Negative (NEGATIVE) 04/21/17 16:58 Urine Bilirubin Negative (NEGATIVE) 04/21/17 16:58 Ur Leukocyte Esterase 2+ (NEGATIVE) H 04/21/17 16:58 Ur Epithelial Cells Rare /HPF (FEW) 04/21/17 16:58 Urine Bacteria Rare /hpf (NONE SEEN) 04/21/17 16:58 Urine Mucus Rare 04/21/17 16:58 Microbiology 04/22/17 --> Blood culture (periph. venous) Preliminary NO GROWTH OBTAINED AFTER 48 HOURS, INCUBATION TO CONTINUE FOR 3 DAYS. Problem List - Problems (1) ESRD on dialysis Assessment/Plan: Pateint very well know to Dr. Munguia. The LUE swelling is a known problem...has fistula stenosis. Because she is asymptomatic, best course of action at this time is rest and elevation of LUE. Dr. Munguia will be in to see patient tomorrow. Cont medical management Vascular Surgery will continue to follow. Code(s): N18.6 - END STAGE RENAL DISEASE; Z99.2 - DEPENDENCE ON RENAL DIALYSIS (2) Urinary tract infection Assessment/Plan: IV ABX f/u Urine Culture Code(s): N39.0 - URINARY TRACT INFECTION, SITE NOT SPECIFIED QualifierTitle: Urinary tract infection type: site unspecified Hematuria presence: with hematuria Qualified Code(s): N39.0 - Urinary tract infection, site not specified; R31.9 - Hematuria, unspecified; R31.9 - Hematuria, unspecified Visit type - Case Type Case Type: ED Admission - Emergency Emergency Visit: Yes ED Registration Date: 04/21/17 Care time: The patient presented to the Emergency Department on the above date and was hospitalized for further evaluation of their emergent condition. - New patient This patient is new to me today: Yes Date on this admission: 04/25/17 <Dino Munguia - Last Filed: 04/26/17 15:46> - Consultation REQUESTING PROVIDER: CONSULT REQUEST: We have been asked to surgically evaluate this patient for ( specify). PCP:Norma Oropeza HISTORY OF PRESENT ILLNESS: PMHx: PSHx: Home Medications Medication Instructions Recorded Levothyroxine [Synthroid -] 100 mcg PO DAILY 10/11/12 Pregabalin [Lyrica] 75 mg PO DAILY #0 capsule 02/27/13 Metoprolol Succinate [Toprol XL -] 50 mg PO ASDIR 03/09/15 Acetaminophen [Tylenol .Regular 650 mg PO Q6H PRN #0 tablet 01/18/16 Strength -] Multivitamin/Iron/Folic Acid 1 each PO DAILY 03/20/16 [Daily Vitamin Formula-Iron Tab] Simethicone [Mylicon -] 80 mg PO Q4H PRN #60 tab.chew 03/23/16 Sertraline HCl [Zoloft -] 50 mg PO DAILY 07/12/16 Sevelamer Carbonate [Renvela -] 800 mg PO TIDCM tab 08/06/16 Warfarin Sodium [Coumadin] 2 mg PO DAILY #30 tablet 08/07/16 Folic Acid/Vit Bcomp,C [Cassie-Mahendra 0.8 mg PO DAILY 09/28/16 Tablet] Ipratropium 0.02% Nebulizer 1 neb NEB DAILY 09/28/16 [Atrovent 0.02% Nebulizer -] Midodrine HCl [Proamatine -] 10 mg PO MoWeFr@10 tablet 10/03/16 Naph,Mb-Db/K pH,Mbdb [PHOS-NaK 1 packet PO TID #90 misc 10/03/16 PACKET -] Pantoprazole Sodium [Protonix -] 40 mg PO BID #60 bot 10/03/16 Alprazolam [Xanax] 0.25 mg PO Q8H PRN #30 tablet MDD 2 04/24/17 Ciprofloxacin [Cipro -] 250 mg PO BID #6 tablet 04/24/17 Allergies Allergy/AdvReac Type Severity Reaction Status Date / Time codeine [Codeine] Allergy Mild Itching Verified 04/21/17 14:46 oxycodone HCl [From Percocet] Allergy Verified 04/21/17 14:46 REVIEW OF SYSTEMS: CONSTITUTIONAL: Absent: fever, chills, diaphoresis, generalized weakness, malaise, loss of appetite, weight change CARDIOVASCULAR: Absent: chest pain, syncope, palpitations, irregular heart rate, lightheadedness , peripheral edema RESPIRATORY: Absent: cough, shortness of breath, dyspnea with exertion, wheezing, stridor, hemoptysis GASTROINTESTINAL: Absent: abdominal pain, abdominal distension, nausea, vomiting, diarrhea, constipation, melena, hematochezia GENITOURINARY: Absent: dysuria, frequency, urgency, hesitancy, hematuria, flank pain, genital pain MUSCULOSKELETAL: Absent: myalgia, arthralgia, joint swelling, back pain, neck pain SKIN: Absent: rash, itching, pallor HEMATOLOGIC/IMMUNOLOGIC: Absent: easy bleeding, easy bruising, lymphadenopathy NEUROLOGIC: Absent: headache, focal weakness, paresthesias, dizziness, unsteady gait, seizure, mental status changes, bladder or bowel incontinence PSYCHIATRIC: Absent: anxiety, depression, suicidal or homicidal ideation, hallucinations. PHYSICAL EXAM: GENERAL: Awake, alert, and fully oriented, in no acute distress. HEAD: Normal with no signs of trauma. EYES: PERRL, sclera anicteric, conjunctiva clear. NECK: Normal ROM, supple without lymphadenopathy, JVD, or masses. LUNGS: Clear to auscultation bilat anteriorly. No wheezes, and no crackles. No accessory muscle use. HEART: Regular rate and rhythm. No murmurs ABDOMEN: Soft, nontender, not distended, normoactive bowel sounds, no guarding, no rebound, no masses. No organomegaly. MUSCULOSKELETAL: Normal ROM at all joints. No bony deformities or tenderness. No CVA tenderness. UPPER EXTREMITIES: 2+ pulses, warm, well-perfused. No cyanosis. Cap refill <2 seconds. No peripheral edema. LOWER EXTREMITIES: 2+ pulses, warm, well-perfused. No calf tenderness. No peripheral edema. NEUROLOGICAL: Normal speech, gait not observed. PSYCH: Cooperative. Good eye contact. Appropriate mood and affect. SKIN: Warm, dry, normal turgor, no rashes or lesions noted. Vital Signs Temperature 97.5 F L 04/26/17 14:02 Pulse Rate 110 H 04/26/17 14:02 Respiratory Rate 20 04/26/17 14:02 Blood Pressure 122/79 04/26/17 14:02 O2 Sat by Pulse Oximetry (%) 94 L 04/26/17 09:00 Lab Results WBC 5.1 K/mm3 (4.0-10.0) 04/25/17 06:25 RBC 2.82 M/mm3 (3.60-5.2) L 04/25/17 06:25 Hgb 8.5 GM/dL (10.7-15.3) L 04/25/17 06:25 Hct 26.4 % (32.4-45.2) L 04/25/17 06:25 MCV 93.6 fl (80-96) 04/25/17 06:25 MCHC 32.0 g/dl (32.0-36.0) 04/25/17 06:25 RDW 18.4 % (11.6-15.6) H 04/25/17 06:25 Plt Count 116 K/MM3 (134-434) L 04/25/17 06:25 Sodium 141 mmol/L (136-145) 04/24/17 15:40 Potassium 4.7 mmol/L (3.5-5.1) 04/24/17 15:40 Chloride 105 mmol/L (98-107) 04/24/17 15:40 Carbon Dioxide 28 mmol/L (21-32) 04/24/17 15:40 Anion Gap 8 (8-16) 04/24/17 15:40 BUN 45 mg/dL (7-18) H D 04/24/17 15:40 Creatinine 5.1 mg/dL (0.55-1.02) H D 04/24/17 15:40 Random Glucose 192 mg/dL (74-106) H 04/24/17 15:40 Calcium 8.0 mg/dL (8.5-10.1) L 04/24/17 15:40 Blood Type O NEGATIVE 04/21/17 17:06 Antibody Screen Negative 04/21/17 17:06 INR 2.12 (0.82-1.09) H 04/26/17 06:00 Left arm with minimal swelling today. Fistula is not hard and dialysis notes do not mention high venous pressure. Duplex scan reviewed: incomplete exam which is unable to evaluate for proximal stenosis. No intervention needed at this time. I will see in office follow up.
[2017-04-25] MEDS ORDERED: PT OWN MED DRAWER 7, Y5N ONE (10:08)
[2017-04-25] MEDS: METOPROLOL SUCCINATE 50 MG TAB.SR.24H (FP) PO SCH (10:09)
[2017-04-25] MEDS: SEVELAMER CARBONATE 800 MG TAB (FP) PO SCH ×3 (10:09→18:07)
[2017-04-25] MEDS: ARTIFICIAL TEARS (POLYVINYL ALCOHOL 1.4%) OPTH DROPS OU SCH ×2 (10:10→22:27)
[2017-04-25] MEDS: VITAMIN B COMP W-C 1 EA TABLET PO SCH (10:10)
[2017-04-25] MEDS: PANTOPRAZOLE 40 MG TABLET (FP) PO SCH ×2 (10:10→22:27)
[2017-04-25] MEDS: CEFTRIAXONE 1 GM/50 ML PREMIX IVPB SCH (10:10)
[2017-04-25] MEDS: SERTRALINE HCL 50 MG TABLET (FP) PO SCH (10:10)
[2017-04-25] MEDS: PREGABALIN 75 MG CAPSULE PO SCH (10:10)
[2017-04-25] MEDS: MULTIVITAMINS (DAILY MVI) TABLET (FP) PO SCH (10:10)
[2017-04-25] MEDS: BACITRACIN 15 GM TUBE TOPICAL OINTMENT TP SCH (10:25)
--- NOTE | 2017-04-25 10:49 | PN ---
Progress Note, Physician Chief Complaint: LUE swelling History of Present Illness: Patient was seen and examined. Awake and alert. Chart was reviewed Denies chest pain, SOB or palpitations As outlined above - Current Medication List Current Medications: Active Medications Acetaminophen (Tylenol -) 650 mg PO Q6H PRN PRN Reason: FEVER OR PAIN Last Admin: 04/22/17 21:33 Dose: 650 mg Alprazolam (Xanax -) 0.25 mg PO Q8H PRN PRN Reason: ANXIETY Artificial Tears (Artificial Tears) 1 drop OU BID [facility] Last Admin: 04/25/17 10:10 Dose: 1 drop Bacitracin (Bacitracin -) 1 applic TP DAILY [facility] Last Admin: 04/25/17 10:25 Dose: Not Given Ipratropium [place] (Atrovent 0.02% Nebulizer -) 1 amp NEB QIDR PRN PRN Reason: SHORTNESS OF BREATH Levothyroxine Sodium (Synthroid -) 100 mcg PO DAILY@0700 [facility] Last Admin: 04/25/17 06:25 Dose: 100 mcg Metoprolol Succinate (Toprol Xl -) 50 mg PO SuTuThSa@1000 [facility] Last Admin: 04/25/17 10:09 Dose: 50 mg Midodrine (Proamatine -) 10 mg PO MoWeFr@10 [facility] Last Admin: 04/24/17 10:05 Dose: 10 mg Multivit/Ca Carb/B Cmplx/FA/Prenat (Nephro-Mahendra -) 1 tablet PO DAILY [facility] Last Admin: 04/25/17 10:10 Dose: 1 tablet Multivitamins/Minerals/Vitamin C (Tab-A-Vit -) 1 tab PO DAILY [facility] Last Admin: 04/25/17 10:10 Dose: 1 tab Pantoprazole Sodium (Protonix -) 40 mg PO BID [facility] Last Admin: 04/25/17 10:10 Dose: 40 mg Potassium Phos/Sodium Phos (Phos-Nak Packet -) 1 packet PO TID [facility] Last Admin: 04/25/17 06:25 Dose: 1 packet Pregabalin (Lyrica -) 75 mg PO DAILY [facility] Last Admin: 04/25/17 10:10 Dose: 75 mg Sertraline HCl (Zoloft -) 50 mg PO DAILY [facility] Last Admin: 04/25/17 10:10 Dose: 50 mg Sevelamer Carbonate (Renvela -) 800 mg PO TIDCM [facility] Last Admin: 04/25/17 10:09 Dose: 800 mg Simethicone (Mylicon -) 80 mg PO Q4H PRN PRN Reason: GAS Last Admin: 04/25/17 01:27 Dose: 80 mg Warfarin Sodium (Coumadin -) 2 mg PO DAILY@1800 [facility] Last Admin: 04/24/17 21:18 Dose: 2 mg - Objective Vital Signs: Vital Signs Temperature 98 F 04/25/17 10:18 Pulse Rate 106 H 04/25/17 10:18 Respiratory Rate 18 04/25/17 10:18 Blood Pressure 126/56 04/25/17 10:18 O2 Sat by Pulse Oximetry (%) 98 04/24/17 21:00 Eyes: Yes: PERRL HENT: Yes: Atraumatic Neck: Yes: Supple Cardiovascular: Yes: Pulse Irregular, Murmur (2/6 SM), S1, S2 Respiratory: Yes: CTA Bilaterally Gastrointestinal: Yes: Normal Bowel Sounds, Soft. No: Tenderness Edema: Yes Edema: LUE: 2+ Labs: CBC, BMP 04/25/17 06:25 04/24/17 15:40 INR, PTT INR 2.10 (0.82-1.09) H 04/25/17 06:00 Problem List - Problems (1) Demand ischemia Code(s): I24.8 - OTHER FORMS OF ACUTE ISCHEMIC HEART DISEASE (2) Altered mental status Code(s): R41.82 - ALTERED MENTAL STATUS, UNSPECIFIED Qualifiers: Altered mental status type: unspecified Qualified Code(s): R41.82 - Altered mental status, unspecified (3) Anemia associated with acute blood loss Code(s): D62 - ACUTE POSTHEMORRHAGIC ANEMIA (4) Elevated troponin I level Code(s): R74.8 - ABNORMAL LEVELS OF OTHER SERUM ENZYMES (5) Urinary tract infection Code(s): N39.0 - URINARY TRACT INFECTION, SITE NOT SPECIFIED Qualifiers: Urinary tract infection type: site unspecified Hematuria presence: with hematuria Qualified Code(s): N39.0 - Urinary tract infection, site not specified; R31.9 - Hematuria, unspecified; R31.9 - Hematuria, unspecified (6) AV fistula thrombosis Code(s): T82.868A - THROMBOSIS DUE TO VASCULAR PROSTH DEV/GRFT, INIT Qualifiers: Encounter type: initial encounter Qualified Code(s): T82.868A - Thrombosis due to vascular prosthetic devices, implants and grafts, initial encounter (7) Acute on chronic systolic and diastolic heart failure, NYHA class 3 Code(s): I50.43 - ACUTE ON CHRONIC COMBINED SYSTOLIC AND DIASTOLIC HRT FAIL (8) Aortic stenosis Code(s): I35.0 - NONRHEUMATIC AORTIC (VALVE) STENOSIS Qualifiers: Cardiac valve disease etiology: nonrheumatic Qualified Code(s): I35.0 - Nonrheumatic aortic (valve) stenosis (9) Atrial flutter Code(s): I48.92 - UNSPECIFIED ATRIAL FLUTTER Qualifiers: Atrial flutter type: typical Qualified Code(s): I48.3 - Typical atrial flutter (10) CAD (coronary artery disease) Code(s): I25.10 - ATHSCL HEART DISEASE OF [place] CORONARY ARTERY W/O ANG PCTRS Qualifiers: Coronary Disease-Associated Artery/Lesion type: [place] artery [place] vs. transplanted heart: [place] heart Associated angina: without angina Qualified Code(s): I25.10 - Atherosclerotic heart disease of [place] coronary artery without angina pectoris (11) Diabetes Code(s): E11.9 - TYPE 2 DIABETES MELLITUS WITHOUT COMPLICATIONS Qualifiers: (12) ESRD on hemodialysis Code(s): N18.6 - END STAGE RENAL DISEASE; Z99.2 - DEPENDENCE ON RENAL DIALYSIS (13) GERD (gastroesophageal reflux disease) Code(s): K21.9 - GASTRO-ESOPHAGEAL REFLUX DISEASE WITHOUT ESOPHAGITIS Qualifiers: Esophagitis presence: with esophagitis Qualified Code(s): K21.0 - Gastro- esophageal reflux disease with esophagitis (14) GI bleed Code(s): K92.2 - GASTROINTESTINAL HEMORRHAGE, UNSPECIFIED Qualifiers: GI bleed type/associated pathology: melena Qualified Code(s): K92.1 - Melena (15) Generalized weakness Code(s): R53.1 - WEAKNESS (16) HTN (hypertension) Code(s): I10 - ESSENTIAL (PRIMARY) HYPERTENSION Qualifiers: Hypertension type: essential hypertension Qualified Code(s): I10 - Essential (primary) hypertension (17) History of percutaneous coronary intervention Code(s): Z98.89 - OTHER SPECIFIED POSTPROCEDURAL STATES * DO NOT USE * (18) Hyperlipidemia Code(s): E78.5 - HYPERLIPIDEMIA, UNSPECIFIED Qualifiers: Hyperlipidemia type: pure hypercholesterolemia Qualified Code(s): E78.00 - Pure hypercholesterolemia, unspecified (19) Hypothyroidism Code(s): E03.9 - HYPOTHYROIDISM, UNSPECIFIED Qualifiers: Hypothyroidism type: unspecified Qualified Code(s): E03.9 - Hypothyroidism , unspecified (20) Single implantable cardioverter-defibrillator (ICD) in situ Code(s): Z95.810 - PRESENCE OF AUTOMATIC (IMPLANTABLE) CARDIAC DEFIBRILLATOR (21) Systolic dysfunction without heart failure Code(s): I51.9 - HEART DISEASE, UNSPECIFIED Assessment/Plan 1. Altered mental status likely secondary to medications (baclofen) - currently resolved 2. Persistent atrial fibrillation/flutter with therapeutic INR 3. 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 Elevated troponin - demand ischemia 5. CAD, s/p PCI/stent, angina 6. 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 Type 2 DM 8. Hypercholesterolemia 9. Mild aortic valve stenosis and aortic valve regurgitation 10. Anemia and thrombocytopenia 11. Hypothyroidism 12. Hiatal hernia and gastric ulcer on EGD PLAN: 1. Continue Coumadin per INR 2. Continue Metoprolol ER 50 mg and Midodrine 10 mg MWF with HD 3. ICD interrogation as outpatient 4. HD as per renal service - transfusion PRBC as needed. Vascular input noted 5. GI protection Further plans are to follow Len Guevara MD
--- NOTE | 2017-04-25 15:12 | PN ---
Progress Note (short form) - Note Progress Note: Renal follow up for ESRD on HD with AMS Pt seen and examined at the bedside awake and back to baseline mental status s/p dialysis yesterday Vital Signs Temperature 98 F 04/25/17 10:18 Pulse Rate 106 H 04/25/17 10:18 Respiratory Rate 18 04/25/17 10:18 Blood Pressure 126/56 04/25/17 10:18 O2 Sat by Pulse Oximetry (%) 98 04/24/17 21:00 Intake & Output 04/22/17 04/23/17 04/24/17 04/25/17 23:59 23:59 23:59 23:59 Intake Total 60 480 450 290 Balance 60 480 450 290 Weight 63.957 kg 62.777 kg NAD, at baseline MS tachycardic No Le edema CBC, BMP 04/25/17 06:25 04/24/17 15:40 Current Medications Acetaminophen (Tylenol -) 650 mg PO Q6H PRN PRN Reason: FEVER OR PAIN Last Admin: 04/22/17 21:33 Dose: 650 mg Alprazolam (Xanax -) 0.25 mg PO Q8H PRN PRN Reason: ANXIETY Artificial Tears (Artificial Tears) 1 drop OU BID [facility] Last Admin: 04/25/17 10:10 Dose: 1 drop Bacitracin (Bacitracin -) 1 applic TP DAILY [facility] Last Admin: 04/25/17 10:25 Dose: Not Given Ipratropium [place] (Atrovent 0.02% Nebulizer -) 1 amp NEB QIDR PRN PRN Reason: SHORTNESS OF BREATH Levothyroxine Sodium (Synthroid -) 100 mcg PO DAILY@0700 [facility] Last Admin: 04/25/17 06:25 Dose: 100 mcg Metoprolol Succinate (Toprol Xl -) 50 mg PO SuTuThSa@1000 [facility] Last Admin: 04/25/17 10:09 Dose: 50 mg Midodrine (Proamatine -) 10 mg PO MoWeFr@10 [facility] Last Admin: 04/24/17 10:05 Dose: 10 mg Multivit/Ca Carb/B Cmplx/FA/Prenat (Nephro-Mahendra -) 1 tablet PO DAILY [facility] Last Admin: 04/25/17 10:10 Dose: 1 tablet Multivitamins/Minerals/Vitamin C (Tab-A-Vit -) 1 tab PO DAILY [facility] Last Admin: 04/25/17 10:10 Dose: 1 tab Pantoprazole Sodium (Protonix -) 40 mg PO BID [facility] Last Admin: 04/25/17 10:10 Dose: 40 mg Potassium Phos/Sodium Phos (Phos-Nak Packet -) 1 packet PO TID [facility] Last Admin: 04/25/17 13:53 Dose: 1 packet Pregabalin (Lyrica -) 75 mg PO DAILY [facility] Last Admin: 04/25/17 10:10 Dose: 75 mg Sertraline HCl (Zoloft -) 50 mg PO DAILY [facility] Last Admin: 04/25/17 10:10 Dose: 50 mg Sevelamer Carbonate (Renvela -) 800 mg PO TIDCM [facility] Last Admin: 04/25/17 13:52 Dose: 800 mg Simethicone (Mylicon -) 80 mg PO Q4H PRN PRN Reason: GAS Last Admin: 04/25/17 01:27 Dose: 80 mg Warfarin Sodium (Coumadin -) 2 mg PO DAILY@1800 [facility] Last Admin: 04/24/17 21:18 Dose: 2 mg 89 year old woman with PMhx of ESRD on HD, CAD s/p stent, CHF, Hypertension, Hyperlipidemia, Skin Ca, Hypothyrodism who presented from HD unit with AMS. #AMS likely secondary to medications (baclofen) but r/o UTI MS now at baseline withhold any future baclofen exposure #ESRD on HD s/p dialysis yesterday, tolerated it well net treatment tomorrow #Chronic Anemia no acute indication for transfusion D/c planning per PMD Thank you Yahir Cortez DO
[2017-04-25] MEDS: WARFARIN NA 2 MG TABLET (UD) PO SCH (18:08)
--- NOTE | 2017-04-25 19:44 | CON.GI ---
Consult Consult Specialty:: Gastroenterology Referred by:: Dr Oropeza Reason for Consultation:: Anemia - History of Present Illness Chief Complaint: Altered mental status back to baseline History of Present Illness: 89F is admitted for altered mental status. She is back to baseline. She believes it was caused by a new medication Baclofen. Eloisa' Hb has dropped to 8.3. She denies any over bleeding or abdominal pain. She is well known to our group. She had an EGD with nj in 09/28 when her Hb dropped to 7 and was was found to have a prepyloric ulcer on 09/30/16. A small sliding hiatal hernia was also found. EGD in 2012 revealed GERD with ulcerations, candidal esophagitis, multiple antral ulcers and duodenitis. She has been taking pantoprazole. She takes warfarin for afib. She has refused colonoscopy on numerous previous occasions. - History Source History Provided By: Patient, Medical Record Limitations to Obtaining History: No Limitations - Past Medical History BINDING END STITCHER: Yes: Peripheral Neuropathy Cardio/Vascular: Yes: AFIB (right sided ICD), CAD, CHF, HTN, Hyperlipdemia, Other (S/P PCI/stent, chronic diastolic CHF, right sided ICD) Gastrointestinal: Yes: Constipation, Gastritis, GERD, GI Bleed, Hiatal Hernia, Peptic Ulcer Disease Renal/: Yes: Renal Failure, Hemodialysis ...: No Heme/Onc: Yes: Anemia Musculoskeletal: Yes: Osteoarthritis Endocrine: Yes: Diabetes Mellitus, Hypothyroidism - Past Surgical History Past Surgical History: Yes: AICD (right sided), AV Fistula/Graft (), Cholecystectomy (lap choly), Stent (1999), Upper Endoscopy Additional Surgical History: Bladder lift surgery - Alcohol/Substance Use Hx Alcohol Use: No History of Substance Use: reports: None - Smoking History Smoking history: Former smoker Have you smoked in the past 12 months: No Aproximately how many cigarettes per day: 0 If you are a former smoker, when did you quit?: 1999 - Social History Usual Living Arrangement: Shelter ADL: Support Services 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 History of Recent Travel: No Home Medications - Allergies Allergies/Adverse Reactions: Allergies Allergy/AdvReac Type Severity Reaction Status Date / Time codeine [Codeine] Allergy Mild Itching Verified 04/21/17 14:46 oxycodone HCl [From Percocet] Allergy Verified 04/21/17 14:46 - Home Medications Home Medications: Ambulatory Orders Levothyroxine [Synthroid -] 100 mcg PO DAILY 10/11/12 Pregabalin [Lyrica] 75 mg PO DAILY #0 capsule 02/27/13 Metoprolol Succinate [Toprol XL -] 50 mg PO ASDIR 03/09/15 Acetaminophen [Tylenol .Regular Strength -] 650 mg PO Q6H PRN #0 tablet Multivitamin/Iron/Folic Acid [Daily Vitamin Formula-Iron Tab] 1 each PO DAILY Simethicone [Mylicon -] 80 mg PO Q4H PRN #60 tab.chew 03/23/16 Sertraline HCl [Zoloft -] 50 mg PO DAILY 07/12/16 Sevelamer Carbonate [Renvela -] 800 mg PO TIDCM tab 08/06/16 Warfarin Sodium [Coumadin] 2 mg PO DAILY #30 tablet 08/07/16 Folic Acid/Vit Bcomp,C [Cassie-Mahendra Tablet] 0.8 mg PO DAILY 09/28/16 Ipratropium 0.02% Nebulizer [Atrovent 0.02% Nebulizer -] 1 neb NEB DAILY Midodrine HCl [Proamatine -] 10 mg PO MoWeFr@10 tablet 10/03/16 Naph,Mb-Db/K pH,Mbdb [PHOS-NaK PACKET -] 1 packet PO TID #90 misc 10/03/16 Pantoprazole Sodium [Protonix -] 40 mg PO BID #60 bot 10/03/16 Alprazolam [Xanax] 0.25 mg PO Q8H PRN #30 tablet MDD 2 04/24/17 Ciprofloxacin [Cipro -] 250 mg PO BID #6 tablet 04/24/17 Family Disease History - Family Disease History Family Disease History: Diabetes: Mother (nonHodgkins lymphoma), CA: Father ( of gastric cancer), Mother, Sister (brast cancer), Other: Brother ( Parkinsons) Review of Systems - Review of Systems Constitutional: reports: No Symptoms Eyes: reports: No Symptoms HENT: reports: No Symptoms Neck: reports: No Symptoms Cardiovascular: reports: No Symptoms Gastrointestinal: reports: Indigestion Musculoskeletal: reports: Joint Pain Neurological: reports: Change in LOC Physical Exam-GI Vital Signs: Vital Signs Temperature 97.4 F L 04/25/17 15:08 Pulse Rate 102 H 04/25/17 15:08 Respiratory Rate 18 04/25/17 15:08 Blood Pressure 107/55 04/25/17 15:08 O2 Sat by Pulse Oximetry (%) 98 04/24/17 21:00 CBC,CMP WBC 5.1 K/mm3 (4.0-10.0) 04/25/17 06:25 RBC 2.82 M/mm3 (3.60-5.2) L 04/25/17 06:25 Hgb 8.5 GM/dL (10.7-15.3) L 04/25/17 06:25 Hct 26.4 % (32.4-45.2) L 04/25/17 06:25 MCV 93.6 fl (80-96) 04/25/17 06:25 MCH 30.0 pg (25.7-33.7) 04/25/17 06:25 MCHC 32.0 g/dl (32.0-36.0) 04/25/17 06:25 RDW 18.4 % (11.6-15.6) H 04/25/17 06:25 Plt Count 116 K/MM3 (134-434) L 04/25/17 06:25 MPV 8.8 fl (7.5-11.1) 04/25/17 06:25 Neutrophils % 76.0 % (42.8-82.8) 04/23/17 17:50 Lymphocytes % 8.0 % (8-40) D 04/23/17 17:50 Monocytes % 15.6 % (3.8-10.2) H 04/23/17 17:50 Eosinophils % 0.2 % (0-4.5) D 04/23/17 17:50 Basophils % 0.2 % (0-2.0) 04/23/17 17:50 Sodium 141 mmol/L (136-145) 04/24/17 15:40 Potassium 4.7 mmol/L (3.5-5.1) 04/24/17 15:40 Chloride 105 mmol/L (98-107) 04/24/17 15:40 Carbon Dioxide 28 mmol/L (21-32) 04/24/17 15:40 Anion Gap 8 (8-16) 04/24/17 15:40 BUN 45 mg/dL (7-18) H D 04/24/17 15:40 Creatinine 5.1 mg/dL (0.55-1.02) H D 04/24/17 15:40 Creat Clearance w eGFR 12.72 (>60) 04/23/17 05:30 POC Glucometer 163 UNITS (80-120) 04/22/17 21:36 Random Glucose 192 mg/dL (74-106) H 04/24/17 15:40 Calcium 8.0 mg/dL (8.5-10.1) L 04/24/17 15:40 Phosphorus 4.9 mg/dL (2.5-4.9) D 04/24/17 05:45 Magnesium 2.3 mg/dL (1.8-2.4) D 04/22/17 06:20 Total Bilirubin 1.0 mg/dL (0.2-1.0) D 04/23/17 05:30 AST 13 U/L (15-37) L 04/23/17 05:30 ALT 16 U/L (12-78) 04/23/17 05:30 Alkaline Phosphatase 290 U/L (45-117) H 04/23/17 05:30 Creatine Kinase 31 IU/L (26-192) 04/21/17 14:55 Troponin I 0.31 ng/ml (0.00-0.05) H 04/22/17 06:20 Total Protein 6.6 g/dl (6.4-8.2) 04/23/17 05:30 Albumin 2.9 g/dl (3.4-5.0) L 04/23/17 05:30 TSH 6.58 uIU/ml (0.358-3.74) H D 04/23/17 05:30 Current Medications Generic Name Dose Route Start Last Admin Trade Name Freq PRN Reason Stop Dose Admin Acetaminophen 650 mg 04/22/17 12:19 04/22/17 21:33 Tylenol - PO 650 mg Q6H PRN Administration FEVER OR PAIN Alprazolam 0.25 mg 04/23/17 11:31 Xanax - PO Q8H PRN ANXIETY Artificial Tears 1 drop 04/23/17 22:00 04/25/17 10:10 Artificial Tears OU 1 drop BID [facility] Administration Bacitracin 1 applic 04/24/17 22:00 04/25/17 10:25 Bacitracin - TP Not Given DAILY [facility] Ipratropium [place] 1 amp 04/22/17 13:04 Atrovent 0.02% Nebulizer - NEB QIDR PRN SHORTNESS OF BREATH Levothyroxine Sodium 100 mcg 04/23/17 07:00 04/25/17 06:25 Synthroid - PO 100 mcg DAILY@0700 [facility] Administration Metoprolol Succinate 50 mg 04/23/17 10:00 04/25/17 10:09 Toprol Xl - PO 50 mg SuTuThSa@1000 [facility] Administration Midodrine 10 mg 04/24/17 10:00 04/24/17 10:05 Proamatine - PO 10 mg MoWeFr@10 [facility] Administration Multivit/Ca Carb/B Cmplx/FA/Prenat 1 tablet 04/23/17 10:00 04/25/17 10:10 Nephro-Mahendra - PO 1 tablet DAILY [facility] Administration Multivitamins/Minerals/Vitamin C 1 tab 04/23/17 10:00 04/25/17 10:10 Tab-A-Vit - PO 1 tab DAILY [facility] Administration Pantoprazole Sodium 40 mg 04/22/17 22:00 04/25/17 10:10 Protonix - PO 40 mg BID [facility] Administration Potassium Phos/Sodium Phos 1 packet 04/22/17 14:00 04/25/17 13:53 Phos-Nak Packet - PO 1 packet TID [facility] Administration Pregabalin 75 mg 04/23/17 10:00 04/25/17 10:10 Lyrica - PO 75 mg DAILY [facility] Administration Sertraline HCl 50 mg 04/23/17 10:00 04/25/17 10:10 Zoloft - PO 50 mg DAILY [facility] Administration Sevelamer Carbonate 800 mg 04/22/17 17:30 04/25/17 18:07 Renvela - PO 800 mg TIDCM [facility] Administration Simethicone 80 mg 04/22/17 12:19 04/25/17 18:12 Mylicon - PO 80 mg Q4H PRN Administration GAS Warfarin Sodium 2 mg 04/22/17 18:00 04/25/17 18:08 Coumadin - PO 2 mg DAILY@1800 [facility] Administration Constitutional: Yes: No Distress Eyes: Yes: Conjunctiva Clear HENT: Yes: Atraumatic Neck: Yes: Supple Cardiovascular: Yes: Regular Rate and Rhythm (right sided AICD/PPM), Other ( left subclavian area subcutaneous stent) Respiratory: Yes: CTA Bilaterally Gastrointestinal Inspection: Yes: Scars (healed lap choly incisions) ...Auscultate: Yes: Normoactive Bowel Sounds ...Palpate: Yes: Soft, Other (nontender) ...Rectal Exam: Yes: Guaiac Positive (brown strongly guaiac positive), Sphincter Tone Normal Extremities: Yes: Other (LUE AV access to subclavian stent) Edema: No Neurological: Yes: Alert, Oriented Labs: CBC, BMP 04/25/17 06:25 04/24/17 15:40 INR, PTT INR 2.10 (0.82-1.09) H 04/25/17 06:00 Laboratory Tests 01/18/16 07/18/16 08/04/16 08:00 08:35 06:20 Hgb 10.5 L 12.4 9.4 L 09/14/16 09/29/16 10/03/16 22:40 11:00 05:35 Hgb 10.2 L 7.0 L 10.4 L 04/21/17 04/22/17 04/23/17 14:55 06:20 17:50 Hgb 8.8 L D 8.3 L 8.6 L 04/25/17 06:25 Hgb 8.5 L Problem List - Problems (1) Peptic ulcer of stomach Assessment/Plan: Need to exclude recurrence. For EGD 04/28 Code(s): K25.9 - GASTRIC ULCER, UNSP ACUTE OR CHRONIC, W/O HEMOR OR PERF Qualifiers: Gastric ulcer chronicity: unspecified ulcer chronicity Qualified Code(s): K25.9 - Gastric ulcer, unspecified as acute or chronic, without hemorrhage or perforation (2) History of GI bleed Code(s): Z87.19 - PERSONAL HISTORY OF OTHER DISEASES OF THE DIGESTIVE SYSTEM (3) Anemia Code(s): D64.9 - ANEMIA, UNSPECIFIED Qualifiers: Chronic kidney disease stage: on chronic dialysis (4) GERD (gastroesophageal reflux disease) Assessment/Plan: Continue PPI Code(s): K21.9 - GASTRO-ESOPHAGEAL REFLUX DISEASE WITHOUT ESOPHAGITIS Qualifiers: Esophagitis presence: with esophagitis Qualified Code(s): K21.0 - Gastro- esophageal reflux disease with esophagitis (5) GI bleed Assessment/Plan: see anemia discussion. Potential bleeding causes include recurrent ulcers, gastritis/duodenitis, vascular ectasias, GERD and malignancy among others. Consented for EGD and colonoscopy on 04/28 Code(s): K92.2 - GASTROINTESTINAL HEMORRHAGE, UNSPECIFIED Qualifiers: GI bleed type/associated pathology: melena Qualified Code(s): K92.1 - Melena (6) Anemia associated with acute blood loss Assessment/Plan: Eloisa's strong occult bleeding suggests a GI bleeding component contributing to her current anemia. The source should be investigated given her need for coumadin. I have therefore proposed that Eloisa undergo both a repeat EGD and a first time colonoscopy. I discussed the risks of perforation, hemorrhage and thromboembolic phenomena while interrupting A/C. She has consented for both. Will initiate a two day prep and stop coumadin. Have scheduled for afternoon of 04/28. Code(s): D62 - ACUTE POSTHEMORRHAGIC ANEMIA (7) Family history of GI malignancy Code(s): Z80.0 - FAMILY HISTORY OF MALIGNANT NEOPLASM OF DIGESTIVE ORGANS
[2017-04-26] MEDS: NAPH,MB-DB/K PH,MBDB POWDER PACKET PO SCH ×3 (06:19→21:28)
[2017-04-26] MEDS: LEVOTHYROXINE NA 100 MCG TABLET (FP) PO SCH (06:20)
[2017-04-26 08:15] LABS: INR 2.12 (0.82-1.09); PROTHROMBIN TIME (PATIENT) 23.9 SEC (9.98-11.88)
--- NOTE | 2017-04-26 08:46 | PN ---
Progress Note (short form) - Note Progress Note: patient seen and examined. Comfortable Denies pain today Afebrile Gastroenterology consultation noted and appreciated Coumadin held and patient scheduled for EGD and colonoscopy on Monday Patient in agreement as well as patient's family Son at bedside Vital Signs Temp 98.7 F 04/26/17 02:00 Pulse 89 04/26/17 02:00 Resp 18 04/26/17 02:00 BP 103/58 04/26/17 02:00 Pulse Ox 98 04/25/17 21:00 Intake & Output 04/25/17 04/25/17 04/26/17 11:59 23:59 11:59 Intake Total 240 50 100 Balance 240 50 100 Weight 138 lb 6.4 oz 139 lb Intake: IVPB 50 Oral 240 100 Other: Voiding Method Toilet Toilet Toilet # Unmeasured Voids Void 1 3 Bowel Movement Yes No # Bowel Movements 2 Weight Measurement Method Chair Scale Chair Scale Active Medications Acetaminophen (Tylenol -) 650 mg PO Q6H PRN PRN Reason: FEVER OR PAIN Last Admin: 04/22/17 21:33 Dose: 650 mg Alprazolam (Xanax -) 0.25 mg PO Q8H PRN PRN Reason: ANXIETY Artificial Tears (Artificial Tears) 1 drop OU BID [facility] Last Admin: 04/25/17 22:27 Dose: 1 drop Bacitracin (Bacitracin -) 1 applic TP DAILY [facility] Last Admin: 04/25/17 10:25 Dose: Not Given Bisacodyl (Dulcolax -) 20 mg PO ONCE ONE Stop: 04/27/17 20:01 Ipratropium [place] (Atrovent 0.02% Nebulizer -) 1 amp NEB QIDR PRN PRN Reason: SHORTNESS OF BREATH Levothyroxine Sodium (Synthroid -) 100 mcg PO DAILY@0700 [facility] Last Admin: 04/26/17 06:20 Dose: 100 mcg Metoprolol Succinate (Toprol Xl -) 50 mg PO SuTuThSa@1000 [facility] Last Admin: 04/25/17 10:09 Dose: 50 mg Midodrine (Proamatine -) 10 mg PO MoWeFr@10 [facility] Last Admin: 04/24/17 10:05 Dose: 10 mg Multivit/Ca Carb/B Cmplx/FA/Prenat (Nephro-Mahendra -) 1 tablet PO DAILY [facility] Last Admin: 04/25/17 10:10 Dose: 1 tablet Multivitamins/Minerals/Vitamin C (Tab-A-Vit -) 1 tab PO DAILY [facility] Last Admin: 04/25/17 10:10 Dose: 1 tab Pantoprazole Sodium (Protonix -) 40 mg PO BID [facility] Last Admin: 04/25/17 22:27 Dose: 40 mg Polyethylene Glycol/Electrolytes (Golytely Solution -) 2,000 ml PO ONCE ONE Stop: 04/26/17 09:01 Potassium Phos/Sodium Phos (Phos-Nak Packet -) 1 packet PO TID [facility] Last Admin: 04/26/17 06:19 Dose: 1 packet Pregabalin (Lyrica -) 75 mg PO DAILY [facility] Last Admin: 04/25/17 10:10 Dose: 75 mg Sertraline HCl (Zoloft -) 50 mg PO DAILY [facility] Last Admin: 04/25/17 10:10 Dose: 50 mg Sevelamer Carbonate (Renvela -) 800 mg PO TIDCM [facility] Last Admin: 04/25/17 18:07 Dose: 800 mg Simethicone (Mylicon -) 80 mg PO Q4H PRN PRN Reason: GAS Last Admin: 04/25/17 18:12 Dose: 80 mg CBC, BMP 04/25/17 06:25 04/24/17 15:40 INR, PTT INR 2.12 (0.82-1.09) H 04/26/17 06:00 Physical Exam. Constitutional: Yes: Calm,comfortable Eyes: Yes: Conjunctiva Clear Neck: Yes: Supple/ no jvd . no bruit Cardiovascular: Yes: Pulse Irregular Respiratory: Yes: Diminished at bases Gastrointestinal: Yes: Normal Bowel Sounds, Soft/ non tender Edema: No Assessment/Plan stable continue present care xanax for anxiety physical therapy abx dialysis as per renal. and Monday. Coumadin hold. will follow. discussed with family again today. Problem List - Problems (1) Altered mental status Code(s): R41.82 - ALTERED MENTAL STATUS, UNSPECIFIED Qualifiers: Altered mental status type: unspecified Qualified Code(s): R41.82 - Altered mental status, unspecified (2) Elevated troponin I level Code(s): R74.8 - ABNORMAL LEVELS OF OTHER SERUM ENZYMES (3) Urinary tract infection Code(s): N39.0 - URINARY TRACT INFECTION, SITE NOT SPECIFIED Qualifiers: Urinary tract infection type: site unspecified Hematuria presence: with hematuria Qualified Code(s): N39.0 - Urinary tract infection, site not specified; R31.9 - Hematuria, unspecified; R31.9 - Hematuria, unspecified (4) Anemia Code(s): D64.9 - ANEMIA, UNSPECIFIED Qualifiers: Chronic kidney disease stage: on chronic dialysis (5) Atrial flutter Code(s): I48.92 - UNSPECIFIED ATRIAL FLUTTER Qualifiers: Atrial flutter type: typical Qualified Code(s): I48.3 - Typical atrial flutter (6) CAD (coronary artery disease) Code(s): I25.10 - ATHSCL HEART DISEASE OF [place] CORONARY ARTERY W/O ANG PCTRS Qualifiers: Coronary Disease-Associated Artery/Lesion type: [place] artery [place] vs. transplanted heart: [place] heart Associated angina: without angina Qualified Code(s): I25.10 - Atherosclerotic heart disease of [place] coronary artery without angina pectoris (7) ESRD on hemodialysis Code(s): N18.6 - END STAGE RENAL DISEASE; Z99.2 - DEPENDENCE ON RENAL DIALYSIS (8) Single implantable cardioverter-defibrillator (ICD) in situ Code(s): Z95.810 - PRESENCE OF AUTOMATIC (IMPLANTABLE) CARDIAC DEFIBRILLATOR
[2017-04-26] MEDS ORDERED: PEG 3350/NA SULF BICARB CL/KCL 4000 ML SOLN.RECON PO ONE (09:00)
--- NOTE | 2017-04-26 11:35 | PN ---
Progress Note (short form) - Note Progress Note: GI NOTe: Eloisa is undergoing dialysis. She has spoken with her kids and Dr Oropeza and intends to proceed with EGD and colonoscopy on 04/28 Problem List - Problems (1) Peptic ulcer of stomach Code(s): K25.9 - GASTRIC ULCER, UNSP ACUTE OR CHRONIC, W/O HEMOR OR PERF Qualifiers: Gastric ulcer chronicity: unspecified ulcer chronicity Qualified Code(s): K25.9 - Gastric ulcer, unspecified as acute or chronic, without hemorrhage or perforation (2) History of GI bleed Code(s): Z87.19 - PERSONAL HISTORY OF OTHER DISEASES OF THE DIGESTIVE SYSTEM (3) Anemia Code(s): D64.9 - ANEMIA, UNSPECIFIED Qualifiers: Chronic kidney disease stage: on chronic dialysis (4) GERD (gastroesophageal reflux disease) Code(s): K21.9 - GASTRO-ESOPHAGEAL REFLUX DISEASE WITHOUT ESOPHAGITIS Qualifiers: Esophagitis presence: with esophagitis Qualified Code(s): K21.0 - Gastro- esophageal reflux disease with esophagitis (5) GI bleed Code(s): K92.2 - GASTROINTESTINAL HEMORRHAGE, UNSPECIFIED Qualifiers: GI bleed type/associated pathology: melena Qualified Code(s): K92.1 - Melena (6) Anemia associated with acute blood loss Code(s): D62 - ACUTE POSTHEMORRHAGIC ANEMIA (7) Family history of GI malignancy Code(s): Z80.0 - FAMILY HISTORY OF MALIGNANT NEOPLASM OF DIGESTIVE ORGANS
--- NOTE | 2017-04-26 13:39 | PN ---
Progress Note, Physician History of Present Illness: Sensorium resolved to baseline, await EGD/colonoscopy Monday. - Current Medication List Current Medications: Active Medications Acetaminophen (Tylenol -) 650 mg PO Q6H PRN PRN Reason: FEVER OR PAIN Last Admin: 04/22/17 21:33 Dose: 650 mg Artificial Tears (Artificial Tears) 1 drop OU BID [facility] Last Admin: 04/25/17 22:27 Dose: 1 drop Bacitracin (Bacitracin -) 1 applic TP DAILY [facility] Last Admin: 04/25/17 10:25 Dose: Not Given Bisacodyl (Dulcolax -) 20 mg PO ONCE ONE Stop: 04/27/17 20:01 Ipratropium [place] (Atrovent 0.02% Nebulizer -) 1 amp NEB QIDR PRN PRN Reason: SHORTNESS OF BREATH Levothyroxine Sodium (Synthroid -) 100 mcg PO DAILY@0700 [facility] Last Admin: 04/26/17 06:20 Dose: 100 mcg Metoprolol Succinate (Toprol Xl -) 50 mg PO SuTuThSa@1000 [facility] Last Admin: 04/25/17 10:09 Dose: 50 mg Midodrine (Proamatine -) 10 mg PO MoWeFr@10 [facility] Last Admin: 04/24/17 10:05 Dose: 10 mg Multivit/Ca Carb/B Cmplx/FA/Prenat (Nephro-Mahendra -) 1 tablet PO DAILY [facility] Last Admin: 04/25/17 10:10 Dose: 1 tablet Multivitamins/Minerals/Vitamin C (Tab-A-Vit -) 1 tab PO DAILY [facility] Last Admin: 04/25/17 10:10 Dose: 1 tab Pantoprazole Sodium (Protonix -) 40 mg PO BID [facility] Last Admin: 04/25/17 22:27 Dose: 40 mg Potassium Phos/Sodium Phos (Phos-Nak Packet -) 1 packet PO TID [facility] Last Admin: 04/26/17 06:19 Dose: 1 packet Pregabalin (Lyrica -) 75 mg PO DAILY [facility] Last Admin: 04/25/17 10:10 Dose: 75 mg Sertraline HCl (Zoloft -) 50 mg PO DAILY [facility] Last Admin: 04/25/17 10:10 Dose: 50 mg Sevelamer Carbonate (Renvela -) 800 mg PO TIDCM [facility] Last Admin: 04/25/17 18:07 Dose: 800 mg Simethicone (Mylicon -) 80 mg PO Q4H PRN PRN Reason: GAS Last Admin: 04/25/17 18:12 Dose: 80 mg - Objective Vital Signs: Vital Signs Temperature 98.1 F 04/26/17 10:04 Pulse Rate 90 04/26/17 12:50 Respiratory Rate 18 04/26/17 12:50 Blood Pressure 127/70 04/26/17 12:50 O2 Sat by Pulse Oximetry (%) 94 L 04/26/17 09:00 Constitutional: Yes: No Distress, Calm Neck: Yes: Supple Cardiovascular: Yes: Regular Rate and Rhythm Respiratory: Yes: Regular, Diminished Gastrointestinal: Yes: Normal Bowel Sounds, Soft Edema: No Labs: CBC, BMP 04/25/17 06:25 04/24/17 15:40 INR, PTT INR 2.12 (0.82-1.09) H 04/26/17 06:00 Problem List - Problems (1) Elevated troponin I level Code(s): R74.8 - ABNORMAL LEVELS OF OTHER SERUM ENZYMES (2) Anemia Code(s): D64.9 - ANEMIA, UNSPECIFIED Qualifiers: Chronic kidney disease stage: on chronic dialysis (3) Aortic stenosis Code(s): I35.0 - NONRHEUMATIC AORTIC (VALVE) STENOSIS Qualifiers: Cardiac valve disease etiology: nonrheumatic Qualified Code(s): I35.0 - Nonrheumatic aortic (valve) stenosis (4) Atrial flutter Code(s): I48.92 - UNSPECIFIED ATRIAL FLUTTER Qualifiers: Atrial flutter type: typical Qualified Code(s): I48.3 - Typical atrial flutter (5) CAD (coronary artery disease) Code(s): I25.10 - ATHSCL HEART DISEASE OF [place] CORONARY ARTERY W/O ANG PCTRS Qualifiers: Coronary Disease-Associated Artery/Lesion type: [place] artery [place] vs. transplanted heart: [place] heart Associated angina: without angina Qualified Code(s): I25.10 - Atherosclerotic heart disease of [place] coronary artery without angina pectoris (6) ESRD on hemodialysis Code(s): N18.6 - END STAGE RENAL DISEASE; Z99.2 - DEPENDENCE ON RENAL DIALYSIS (7) History of percutaneous coronary intervention Code(s): Z98.89 - OTHER SPECIFIED POSTPROCEDURAL STATES * DO NOT USE * (8) Hyperlipidemia Code(s): E78.5 - HYPERLIPIDEMIA, UNSPECIFIED Qualifiers: Hyperlipidemia type: pure hypercholesterolemia Qualified Code(s): E78.00 - Pure hypercholesterolemia, unspecified (9) Hypothyroidism Code(s): E03.9 - HYPOTHYROIDISM, UNSPECIFIED Qualifiers: Hypothyroidism type: unspecified Qualified Code(s): E03.9 - Hypothyroidism , unspecified (10) Single implantable cardioverter-defibrillator (ICD) in situ Code(s): Z95.810 - PRESENCE OF AUTOMATIC (IMPLANTABLE) CARDIAC DEFIBRILLATOR (11) Subendocardial ischemia Code(s): I24.8 - OTHER FORMS OF ACUTE ISCHEMIC HEART DISEASE (12) Systolic dysfunction without heart failure Code(s): I51.9 - HEART DISEASE, UNSPECIFIED (13) Pre-operative cardiovascular examination, ICD in place Code(s): Z01.810 - ENCOUNTER FOR PREPROCEDURAL CARDIOVASCULAR EXAMINATION; Z95.810 - PRESENCE OF AUTOMATIC (IMPLANTABLE) CARDIAC DEFIBRILLATOR Assessment/Plan 1. Altered mental status likely secondary to medications (baclofen) - currently resolved 2. Persistent atrial fibrillation/flutter with therapeutic INR 3. 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 Elevated troponin - demand ischemia 5. CAD, s/p PCI/stent, angina 6. 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 Type 2 DM 8. Hypercholesterolemia 9. Mild aortic valve stenosis and aortic valve regurgitation 10. Anemia and thrombocytopenia 11. Hypothyroidism 12. Hiatal hernia and gastric ulcer planned for EGD/colonoscopy 13. Pre-operative cardiovascular evaluation PLAN: 1. Coumadin held prior to EGD/colonoscopy 2. Continue Metoprolol ER 50 mg and Midodrine 10 mg MWF with HD 3. ICD interrogation as outpatient 4. HD as per renal service - transfusion PRBC as needed. 5. May proceed with EGD/colonoscopy from CV-standpoint
[2017-04-26] MEDS: SEVELAMER CARBONATE 800 MG TAB (FP) PO SCH ×2 (14:58→17:23)
[2017-04-26] MEDS: VITAMIN B COMP W-C 1 EA TABLET PO SCH (14:59)
[2017-04-26] MEDS: CEFTRIAXONE 1 GM/50 ML PREMIX IVPB SCH (14:59)
[2017-04-26] MEDS: ARTIFICIAL TEARS (POLYVINYL ALCOHOL 1.4%) OPTH DROPS OU SCH ×2 (14:59→21:28)
[2017-04-26] MEDS: PANTOPRAZOLE 40 MG TABLET (FP) PO SCH ×2 (15:00→21:28)
[2017-04-26] MEDS: MULTIVITAMINS (DAILY MVI) TABLET (FP) PO SCH (15:00)
[2017-04-26] MEDS: PREGABALIN 75 MG CAPSULE PO SCH (15:00)
[2017-04-26] MEDS: SERTRALINE HCL 50 MG TABLET (FP) PO SCH (15:00)
[2017-04-26] MEDS: BACITRACIN 15 GM TUBE TOPICAL OINTMENT TP SCH (15:08)
[2017-04-26] MEDS: MIDODRINE HCL 5 MG TABLET PO SCH (15:09)
--- NOTE | 2017-04-26 17:38 | PN ---
Progress Note (short form) - Note Progress Note: Renal follow up for ESRD on HD with AMS Pt seen and examined during dialysis earlier today awake and alert, mental status at baseline BP stable, goal UF is 2L AVF with good flow Vital Signs Temperature 97.5 F L 04/26/17 14:02 Pulse Rate 110 H 04/26/17 14:02 Respiratory Rate 20 04/26/17 14:02 Blood Pressure 122/79 04/26/17 14:02 O2 Sat by Pulse Oximetry (%) 94 L 04/26/17 09:00 Intake & Output 04/23/17 04/24/17 04/25/17 04/26/17 23:59 23:59 23:59 23:59 Intake Total 480 450 290 600 Balance 480 450 290 600 Weight 62.777 kg 63.049 kg NAD, at baseline MS tachycardic No Le edema CBC, BMP 04/25/17 06:25 04/24/17 15:40 Current Medications Acetaminophen (Tylenol -) 650 mg PO Q6H PRN PRN Reason: FEVER OR PAIN Last Admin: 04/22/17 21:33 Dose: 650 mg Artificial Tears (Artificial Tears) 1 drop OU BID [facility] Last Admin: 04/26/17 14:59 Dose: Not Given Bacitracin (Bacitracin -) 1 applic TP DAILY [facility] Last Admin: 04/26/17 15:08 Dose: 1 applic Bisacodyl (Dulcolax -) 20 mg PO ONCE ONE Stop: 04/27/17 20:01 Ipratropium [place] (Atrovent 0.02% Nebulizer -) 1 amp NEB QIDR PRN PRN Reason: SHORTNESS OF BREATH Levothyroxine Sodium (Synthroid -) 100 mcg PO DAILY@0700 [facility] Last Admin: 04/26/17 06:20 Dose: 100 mcg Metoprolol Succinate (Toprol Xl -) 50 mg PO SuTuThSa@1000 [facility] Last Admin: 04/25/17 10:09 Dose: 50 mg Midodrine (Proamatine -) 10 mg PO MoWeFr@10 [facility] Last Admin: 04/26/17 15:09 Dose: 10 mg Multivit/Ca Carb/B Cmplx/FA/Prenat (Nephro-Mahendra -) 1 tablet PO DAILY [facility] Last Admin: 04/26/17 14:59 Dose: 1 tablet Multivitamins/Minerals/Vitamin C (Tab-A-Vit -) 1 tab PO DAILY [facility] Last Admin: 04/26/17 15:00 Dose: 1 tab Pantoprazole Sodium (Protonix -) 40 mg PO BID [facility] Last Admin: 04/26/17 15:00 Dose: 40 mg Potassium Phos/Sodium Phos (Phos-Nak Packet -) 1 packet PO TID [facility] Last Admin: 04/26/17 15:09 Dose: 1 packet Pregabalin (Lyrica -) 75 mg PO DAILY [facility] Last Admin: 04/26/17 15:00 Dose: 75 mg Sertraline HCl (Zoloft -) 50 mg PO DAILY [facility] Last Admin: 04/26/17 15:00 Dose: 50 mg Sevelamer Carbonate (Renvela -) 800 mg PO TIDCM [facility] Last Admin: 04/26/17 17:23 Dose: 800 mg Simethicone (Mylicon -) 80 mg PO Q4H PRN PRN Reason: GAS Last Admin: 04/25/17 18:12 Dose: 80 mg 89 year old woman with PMhx of ESRD on HD, CAD s/p stent, CHF, Hypertension, Hyperlipidemia, Skin Ca, Hypothyrodism who presented from HD unit with AMS. #AMS likely secondary to medications (baclofen) but r/o UTI now at baseline #ESRD on HD tolerated dialysis well today #Chronic Anemia no acute indication for transfusion for EGD/Colonoscopy on Monday Thank you Yahir Cortez DO
[2017-04-27] MEDS: NAPH,MB-DB/K PH,MBDB POWDER PACKET PO SCH ×3 (06:29→21:34)
[2017-04-27] MEDS: LEVOTHYROXINE NA 100 MCG TABLET (FP) PO SCH (06:29)
[2017-04-27 08:01] LABS: INR 2.41 (0.82-1.09); PROTHROMBIN TIME (PATIENT) 27.2 SEC (9.98-11.88)
--- NOTE | 2017-04-27 08:59 | PN ---
Progress Note (short form) - Note Progress Note: patient seen and examined. Feels well No complaints Today Vital Signs Temp 97.9 F 04/27/17 06:22 Pulse 102 H 04/27/17 06:22 Resp 20 04/27/17 06:22 BP 119/59 04/27/17 06:22 Pulse Ox 96 04/26/17 21:00 Intake & Output 04/26/17 04/26/17 04/27/17 11:59 23:59 11:59 Intake Total 100 550 Balance 100 550 Weight 139 lb 136 lb Intake: IVPB 50 Oral 100 500 Other: Voiding Method Toilet Toilet # Unmeasured Voids Void 3 Bowel Movement No Yes Weight Measurement Method Chair Scale Active Medications Acetaminophen (Tylenol -) 650 mg PO Q6H PRN PRN Reason: FEVER OR PAIN Last Admin: 04/22/17 21:33 Dose: 650 mg Artificial Tears (Artificial Tears) 1 drop OU BID [facility] Last Admin: 04/26/17 21:28 Dose: Not Given Bacitracin (Bacitracin -) 1 applic TP DAILY [facility] Last Admin: 04/26/17 15:08 Dose: 1 applic Bisacodyl (Dulcolax -) 20 mg PO ONCE ONE Stop: 04/27/17 20:01 Ipratropium [place] (Atrovent 0.02% Nebulizer -) 1 amp NEB QIDR PRN PRN Reason: SHORTNESS OF BREATH Levothyroxine Sodium (Synthroid -) 100 mcg PO DAILY@0700 [facility] Last Admin: 04/27/17 06:29 Dose: 100 mcg Metoprolol Succinate (Toprol Xl -) 50 mg PO SuTuThSa@1000 [facility] Last Admin: 04/25/17 10:09 Dose: 50 mg Midodrine (Proamatine -) 10 mg PO MoWeFr@10 [facility] Last Admin: 04/26/17 15:09 Dose: 10 mg Multivit/Ca Carb/B Cmplx/FA/Prenat (Nephro-Mahendra -) 1 tablet PO DAILY [facility] Last Admin: 04/26/17 14:59 Dose: 1 tablet Multivitamins/Minerals/Vitamin C (Tab-A-Vit -) 1 tab PO DAILY [facility] Last Admin: 04/26/17 15:00 Dose: 1 tab Pantoprazole Sodium (Protonix -) 40 mg PO BID [facility] Last Admin: 04/26/17 21:28 Dose: 40 mg Potassium Phos/Sodium Phos (Phos-Nak Packet -) 1 packet PO TID [facility] Last Admin: 04/27/17 06:29 Dose: 1 packet Pregabalin (Lyrica -) 75 mg PO DAILY [facility] Last Admin: 04/26/17 15:00 Dose: 75 mg Sertraline HCl (Zoloft -) 50 mg PO DAILY [facility] Last Admin: 04/26/17 15:00 Dose: 50 mg Sevelamer Carbonate (Renvela -) 800 mg PO TIDCM [facility] Last Admin: 04/26/17 17:23 Dose: 800 mg Simethicone (Mylicon -) 80 mg PO Q4H PRN PRN Reason: GAS Last Admin: 04/25/17 18:12 Dose: 80 mg CBC, BMP 04/25/17 06:25 04/24/17 15:40 INR, PTT INR 2.41 (0.82-1.09) H 04/27/17 06:00 Physical Exam. Constitutional: Yes: Calm,comfortable. Eyes: Yes: Conjunctiva Clear. Neck: Yes: Supple/ no jvd . no bruit Cardiovascular: Yes: Pulse Irregular Respiratory: Yes: Diminished at bases. Gastrointestinal: Yes: Normal Bowel Sounds, Soft/ non tender Edema: No neuro--alert and awake Assessment/Plan stable continue present care xanax for anxiety physical therapy abx dialysis as per renal. Endoscopic on Monday. Coumadin on hold. INR is still elevated Will give vitamin K after discussing with Dr. Shepherd. Follow-up INR tomorrow Discussed with nursing staff also. Problem List - Problems (1) Altered mental status Code(s): R41.82 - ALTERED MENTAL STATUS, UNSPECIFIED Qualifiers: Altered mental status type: unspecified Qualified Code(s): R41.82 - Altered mental status, unspecified (2) Elevated troponin I level Code(s): R74.8 - ABNORMAL LEVELS OF OTHER SERUM ENZYMES (3) Urinary tract infection Code(s): N39.0 - URINARY TRACT INFECTION, SITE NOT SPECIFIED Qualifiers: Urinary tract infection type: site unspecified Hematuria presence: with hematuria Qualified Code(s): N39.0 - Urinary tract infection, site not specified; R31.9 - Hematuria, unspecified; R31.9 - Hematuria, unspecified (4) Anemia Code(s): D64.9 - ANEMIA, UNSPECIFIED Qualifiers: Chronic kidney disease stage: on chronic dialysis (5) Atrial flutter Code(s): I48.92 - UNSPECIFIED ATRIAL FLUTTER Qualifiers: Atrial flutter type: typical Qualified Code(s): I48.3 - Typical atrial flutter (6) CAD (coronary artery disease) Code(s): I25.10 - ATHSCL HEART DISEASE OF [place] CORONARY ARTERY W/O ANG PCTRS Qualifiers: Coronary Disease-Associated Artery/Lesion type: [place] artery [place] vs. transplanted heart: [place] heart Associated angina: without angina Qualified Code(s): I25.10 - Atherosclerotic heart disease of [place] coronary artery without angina pectoris (7) ESRD on hemodialysis Code(s): N18.6 - END STAGE RENAL DISEASE; Z99.2 - DEPENDENCE ON RENAL DIALYSIS (8) Single implantable cardioverter-defibrillator (ICD) in situ Code(s): Z95.810 - PRESENCE OF AUTOMATIC (IMPLANTABLE) CARDIAC DEFIBRILLATOR
[2017-04-27] MEDS ORDERED: PEG3350/SOD SULF,BICARB,CL/KCL 4,000 ML SOLN.RECON PO ONE (09:00)
[2017-04-27] MEDS ORDERED: PT OWN MED DRAWER 7, Y5N ONE ×2 (09:17→21:31)
[2017-04-27] MEDS: METOPROLOL SUCCINATE 50 MG TAB.SR.24H (FP) PO SCH (09:42)
[2017-04-27] MEDS: PREGABALIN 75 MG CAPSULE PO SCH (09:42)
[2017-04-27] MEDS: SERTRALINE HCL 50 MG TABLET (FP) PO SCH (09:42)
[2017-04-27] MEDS: VITAMIN B COMP W-C 1 EA TABLET PO SCH (09:42)
[2017-04-27] MEDS: SEVELAMER CARBONATE 800 MG TAB (FP) PO SCH ×3 (09:42→18:43)
[2017-04-27] MEDS: PANTOPRAZOLE 40 MG TABLET (FP) PO SCH ×2 (09:42→21:35)
[2017-04-27] MEDS: CEFTRIAXONE 1 GM/50 ML PREMIX IVPB SCH (09:42)
[2017-04-27] MEDS: MULTIVITAMINS (DAILY MVI) TABLET (FP) PO SCH (09:42)
[2017-04-27] MEDS: BACITRACIN 15 GM TUBE TOPICAL OINTMENT TP SCH (09:43)
[2017-04-27] MEDS: ARTIFICIAL TEARS (POLYVINYL ALCOHOL 1.4%) OPTH DROPS OU SCH ×2 (09:43→21:35)
[2017-04-27] MEDS ORDERED: PHYTONADIONE 10 MG/1 ML AMP IVPB ONE ×2 (10:00→14:30)
--- NOTE | 2017-04-27 12:09 | PN ---
Progress Note, Physician History of Present Illness: Sensorium remains at baseline, await EGD/colonoscopy Monday, tolerating prep. - Current Medication List Current Medications: Active Medications Acetaminophen (Tylenol -) 650 mg PO Q6H PRN PRN Reason: FEVER OR PAIN Last Admin: 04/22/17 21:33 Dose: 650 mg Artificial Tears (Artificial Tears) 1 drop OU BID [facility] Last Admin: 04/27/17 09:43 Dose: 1 drop Bacitracin (Bacitracin -) 1 applic TP DAILY [facility] Last Admin: 04/27/17 09:43 Dose: 1 applic Bisacodyl (Dulcolax -) 20 mg PO ONCE ONE Stop: 04/27/17 20:01 Ipratropium [place] (Atrovent 0.02% Nebulizer -) 1 amp NEB QIDR PRN PRN Reason: SHORTNESS OF BREATH Levothyroxine Sodium (Synthroid -) 100 mcg PO DAILY@0700 [facility] Last Admin: 04/27/17 06:29 Dose: 100 mcg Metoprolol Succinate (Toprol Xl -) 50 mg PO SuTuThSa@1000 [facility] Last Admin: 04/27/17 09:42 Dose: 50 mg Midodrine (Proamatine -) 10 mg PO MoWeFr@10 [facility] Last Admin: 04/26/17 15:09 Dose: 10 mg Multivit/Ca Carb/B Cmplx/FA/Prenat (Nephro-Mahendra -) 1 tablet PO DAILY [facility] Last Admin: 04/27/17 09:42 Dose: 1 tablet Multivitamins/Minerals/Vitamin C (Tab-A-Vit -) 1 tab PO DAILY [facility] Last Admin: 04/27/17 09:42 Dose: 1 tab Pantoprazole Sodium (Protonix -) 40 mg PO BID [facility] Last Admin: 04/27/17 09:42 Dose: 40 mg Potassium Phos/Sodium Phos (Phos-Nak Packet -) 1 packet PO TID [facility] Last Admin: 04/27/17 06:29 Dose: 1 packet Pregabalin (Lyrica -) 75 mg PO DAILY [facility] Last Admin: 04/27/17 09:42 Dose: 75 mg Sertraline HCl (Zoloft -) 50 mg PO DAILY [facility] Last Admin: 04/27/17 09:42 Dose: 50 mg Sevelamer Carbonate (Renvela -) 800 mg PO TIDCM [facility] Last Admin: 12/14/17 09:42 Dose: 800 mg Simethicone (Mylicon -) 80 mg PO Q4H PRN PRN Reason: GAS Last Admin: 04/25/17 18:12 Dose: 80 mg - Objective Vital Signs: Vital Signs Temperature 98 F 04/27/17 09:40 Pulse Rate 99 H 04/27/17 09:40 Respiratory Rate 18 04/27/17 09:40 Blood Pressure 117/63 04/27/17 09:40 O2 Sat by Pulse Oximetry (%) 96 04/26/17 21:00 Constitutional: Yes: No Distress, Calm, Thin Neck: Yes: Supple Cardiovascular: Yes: Pulse Irregular, Murmur (2/6 SM) Respiratory: Yes: Regular, Diminished Gastrointestinal: Yes: Normal Bowel Sounds, Soft Edema: No Labs: CBC, BMP 04/25/17 06:25 04/24/17 15:40 INR, PTT INR 2.41 (0.82-1.09) H 04/27/17 06:00 Problem List - Problems (1) Elevated troponin I level Code(s): R74.8 - ABNORMAL LEVELS OF OTHER SERUM ENZYMES (2) Anemia Code(s): D64.9 - ANEMIA, UNSPECIFIED Qualifiers: Chronic kidney disease stage: on chronic dialysis (3) Aortic stenosis Code(s): I35.0 - NONRHEUMATIC AORTIC (VALVE) STENOSIS Qualifiers: Cardiac valve disease etiology: nonrheumatic Qualified Code(s): I35.0 - Nonrheumatic aortic (valve) stenosis (4) Atrial flutter Code(s): I48.92 - UNSPECIFIED ATRIAL FLUTTER Qualifiers: Atrial flutter type: typical Qualified Code(s): I48.3 - Typical atrial flutter (5) CAD (coronary artery disease) Code(s): I25.10 - ATHSCL HEART DISEASE OF [place] CORONARY ARTERY W/O ANG PCTRS Qualifiers: Coronary Disease-Associated Artery/Lesion type: [place] artery [place] vs. transplanted heart: [place] heart Associated angina: without angina Qualified Code(s): I25.10 - Atherosclerotic heart disease of [place] coronary artery without angina pectoris (6) ESRD on hemodialysis Code(s): N18.6 - END STAGE RENAL DISEASE; Z99.2 - DEPENDENCE ON RENAL DIALYSIS (7) History of percutaneous coronary intervention Code(s): Z98.89 - OTHER SPECIFIED POSTPROCEDURAL STATES * DO NOT USE * (8) Hyperlipidemia Code(s): E78.5 - HYPERLIPIDEMIA, UNSPECIFIED Qualifiers: Hyperlipidemia type: pure hypercholesterolemia Qualified Code(s): E78.00 - Pure hypercholesterolemia, unspecified (9) Hypothyroidism Code(s): E03.9 - HYPOTHYROIDISM, UNSPECIFIED Qualifiers: Hypothyroidism type: unspecified Qualified Code(s): E03.9 - Hypothyroidism , unspecified (10) Single implantable cardioverter-defibrillator (ICD) in situ Code(s): Z95.810 - PRESENCE OF AUTOMATIC (IMPLANTABLE) CARDIAC DEFIBRILLATOR (11) Subendocardial ischemia Code(s): I24.8 - OTHER FORMS OF ACUTE ISCHEMIC HEART DISEASE (12) Systolic dysfunction without heart failure Code(s): I51.9 - HEART DISEASE, UNSPECIFIED (13) Pre-operative cardiovascular examination, ICD in place Code(s): Z01.810 - ENCOUNTER FOR PREPROCEDURAL CARDIOVASCULAR EXAMINATION; Z95.810 - PRESENCE OF AUTOMATIC (IMPLANTABLE) CARDIAC DEFIBRILLATOR Assessment/Plan 1. Altered mental status likely secondary to medications (baclofen) - currently resolved 2. Persistent atrial fibrillation/flutter with therapeutic INR 3. 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 Elevated troponin - demand ischemia 5. CAD, s/p PCI/stent, angina 6. 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 Type 2 DM 8. Hypercholesterolemia 9. Mild aortic valve stenosis and aortic valve regurgitation 10. Anemia and thrombocytopenia 11. Hypothyroidism 12. Hiatal hernia and gastric ulcer planned for EGD/colonoscopy 13. Pre-operative cardiovascular evaluation PLAN: 1. Coumadin held prior to EGD/colonoscopy 2. Continue Metoprolol ER 50 mg and Midodrine 10 mg MWF with HD 3. ICD interrogation as outpatient 4. HD as per renal service - transfusion PRBC as needed. 5. May proceed with EGD/colonoscopy from CV-standpoint once INR acceptable
--- NOTE | 2017-04-27 14:22 | PN ---
Progress Note (short form) - Note Progress Note: Renal follow up for ESRD on HD with AMS Pt seen and examined at the bedside no acute complaints s/p dialysis yesterday getting bowel prep for colonoscopy tomorrow Vital Signs Temperature 98 F 04/27/17 13:49 Pulse Rate 90 04/27/17 13:49 Respiratory Rate 20 04/27/17 13:49 Blood Pressure 98/55 04/27/17 13:49 O2 Sat by Pulse Oximetry (%) 96 04/27/17 09:00 Intake & Output 04/24/17 04/25/17 04/26/17 04/27/17 23:59 23:59 23:59 23:59 Intake Total 450 290 650 500 Balance 450 290 650 500 Weight 62.777 kg 63.049 kg 61.689 kg NAD, at baseline MS tachycardic No Le edema CBC, BMP 04/25/17 06:25 04/24/17 15:40 Current Medications Acetaminophen (Tylenol -) 650 mg PO Q6H PRN PRN Reason: FEVER OR PAIN Last Admin: 04/22/17 21:33 Dose: 650 mg Artificial Tears (Artificial Tears) 1 drop OU BID [facility] Last Admin: 04/27/17 09:43 Dose: 1 drop Bacitracin (Bacitracin -) 1 applic TP DAILY [facility] Last Admin: 04/27/17 09:43 Dose: 1 applic Bisacodyl (Dulcolax -) 20 mg PO ONCE ONE Stop: 04/27/17 20:01 Levothyroxine Sodium (Synthroid -) 100 mcg PO DAILY@0700 [facility] Last Admin: 04/27/17 06:29 Dose: 100 mcg Metoprolol Succinate (Toprol Xl -) 50 mg PO SuTuThSa@1000 [facility] Last Admin: 04/27/17 09:42 Dose: 50 mg Midodrine (Proamatine -) 10 mg PO MoWeFr@10 [facility] Last Admin: 04/26/17 15:09 Dose: 10 mg Multivit/Ca Carb/B Cmplx/FA/Prenat (Nephro-Mahendra -) 1 tablet PO DAILY [facility] Last Admin: 04/27/17 09:42 Dose: 1 tablet Multivitamins/Minerals/Vitamin C (Tab-A-Vit -) 1 tab PO DAILY [facility] Last Admin: 04/27/17 09:42 Dose: 1 tab Pantoprazole Sodium (Protonix -) 40 mg PO BID [facility] Last Admin: 04/27/17 09:42 Dose: 40 mg Potassium Phos/Sodium Phos (Phos-Nak Packet -) 1 packet PO TID [facility] Last Admin: 04/27/17 06:29 Dose: 1 packet Pregabalin (Lyrica -) 75 mg PO DAILY [facility] Last Admin: 04/27/17 09:42 Dose: 75 mg Sertraline HCl (Zoloft -) 50 mg PO DAILY [facility] Last Admin: 04/27/17 09:42 Dose: 50 mg Sevelamer Carbonate (Renvela -) 800 mg PO TIDCM [facility] Last Admin: 04/27/17 13:12 Dose: Not Given Simethicone (Mylicon -) 80 mg PO Q4H PRN PRN Reason: GAS Last Admin: 04/25/17 18:12 Dose: 80 mg 89 year old woman with PMhx of ESRD on HD, CAD s/p stent, CHF, Hypertension, Hyperlipidemia, Skin Ca, Hypothyrodism who presented from HD unit with AMS. #AMS likely secondary to medications (baclofen) but r/o UTI now at baseline #ESRD on HD for dialysis tomorrow #Chronic Anemia for EGD/Colonoscopy tomorrow liberal fluid intake when getting bowel prep Thank you Yahir Cortez DO
[2017-04-27] MEDS ORDERED: WATER IVPB ONE (15:15)
[2017-04-27] MEDS ORDERED: PHYTONADIONE IVPB ONE (15:15)
[2017-04-27] MEDS ORDERED: DEXTROSE 5% IVPB ONE (15:15)
[2017-04-27] MEDS ORDERED: BISACODYL 5 MG TABLET.DR (FP) PO ONE (20:00)
[2017-04-28] MEDS: NAPH,MB-DB/K PH,MBDB POWDER PACKET PO SCH ×3 (05:13→21:18)
[2017-04-28] MEDS: LEVOTHYROXINE NA 100 MCG TABLET (FP) PO SCH (06:00)
[2017-04-28 08:09] LABS: INR 1.98 (0.82-1.09); PROTHROMBIN TIME (PATIENT) 22.4 SEC (9.98-11.88)
--- NOTE | 2017-04-28 08:34 | PN ---
Progress Note (short form) - Note Progress Note: patient seen in her room this am doing well for colonoscopy/upper endoscopy today after HD Tolerated the bowel prep no complaints Vital Signs Temp 98 F 04/28/17 06:00 Pulse 100 H 04/28/17 06:00 Resp 20 04/28/17 06:00 BP 116/67 04/28/17 06:00 Pulse Ox 95 04/27/17 21:00 Intake & Output 04/27/17 04/27/17 04/28/17 11:59 23:59 11:59 Intake Total 1220 Balance 1220 Weight 136 lb 138 lb 6.4 oz Intake: IVPB 100 Oral 1120 Other: Voiding Method Toilet Diaper # Unmeasured Voids Void 3 1 Bowel Movement Yes Yes # Bowel Movements 6 3 Weight Measurement Method Chair Scale Active Medications Acetaminophen (Tylenol -) 650 mg PO Q6H PRN PRN Reason: FEVER OR PAIN Last Admin: 04/22/17 21:33 Dose: 650 mg Artificial Tears (Artificial Tears) 1 drop OU BID [facility] Last Admin: 04/27/17 21:35 Dose: 1 drop Bacitracin (Bacitracin -) 1 applic TP DAILY [facility] Last Admin: 04/27/17 09:43 Dose: 1 applic Epoetin [place] (Epogen -) 10,000 units IVPUSH ONCE ONE Stop: 04/28/17 06:01 Levothyroxine Sodium (Synthroid -) 100 mcg PO DAILY@0700 [facility] Last Admin: 04/28/17 06:00 Dose: Not Given Metoprolol Succinate (Toprol Xl -) 50 mg PO SuTuThSa@1000 [facility] Last Admin: 04/27/17 09:42 Dose: 50 mg Midodrine (Proamatine -) 10 mg PO MoWeFr@10 [facility] Last Admin: 04/26/17 15:09 Dose: 10 mg Multivit/Ca Carb/B Cmplx/FA/Prenat (Nephro-Mahendra -) 1 tablet PO DAILY [facility] Last Admin: 04/27/17 09:42 Dose: 1 tablet Multivitamins/Minerals/Vitamin C (Tab-A-Vit -) 1 tab PO DAILY [facility] Last Admin: 04/27/17 09:42 Dose: 1 tab Pantoprazole Sodium (Protonix -) 40 mg PO BID [facility] Last Admin: 04/27/17 21:35 Dose: 40 mg Potassium Phos/Sodium Phos (Phos-Nak Packet -) 1 packet PO TID [facility] Last Admin: 04/28/17 05:13 Dose: Not Given Pregabalin (Lyrica -) 75 mg PO DAILY [facility] Last Admin: 04/27/17 09:42 Dose: 75 mg Sertraline HCl (Zoloft -) 50 mg PO DAILY [facility] Last Admin: 04/27/17 09:42 Dose: 50 mg Sevelamer Carbonate (Renvela -) 800 mg PO TIDCM [facility] Last Admin: 04/27/17 18:43 Dose: Not Given Simethicone (Mylicon -) 80 mg PO Q4H PRN PRN Reason: GAS Last Admin: 04/25/17 18:12 Dose: 80 mg Abnormal Lab Results 04/28/17 06:30 PT with INR 22.40 H INR 1.98 H PE N- alert, oriented cvs-s1s2 irregular, SM LUNGS-clear ABD- SOFT,NT LE- NO edema LEFT AVF- positive bruit, swelling at the site[ seen by vascular] A/P Status post AMS- resolved chronic anemia history of pyloric ulcer h/o left AVF stenosis ESRD presence of AICD CAD -Antibiotics- d/c today- patient stable -for colonoscopy/EGD- INR- 1.98- Will consider giving another dose of vitamin K after discussing wth Dr Bradley -HD - discussed with nursing staff Problem List - Problems (1) History of GI bleed Code(s): Z87.19 - PERSONAL HISTORY OF OTHER DISEASES OF THE DIGESTIVE SYSTEM (2) Left arm swelling Code(s): M79.89 - OTHER SPECIFIED SOFT TISSUE DISORDERS (3) Urinary tract infection Code(s): N39.0 - URINARY TRACT INFECTION, SITE NOT SPECIFIED Qualifiers: Urinary tract infection type: site unspecified Hematuria presence: with hematuria Qualified Code(s): N39.0 - Urinary tract infection, site not specified; R31.9 - Hematuria, unspecified; R31.9 - Hematuria, unspecified (4) Acute on chronic systolic and diastolic heart failure, NYHA class 3 Code(s): I50.43 - ACUTE ON CHRONIC COMBINED SYSTOLIC AND DIASTOLIC HRT FAIL (5) ESRD on hemodialysis Code(s): N18.6 - END STAGE RENAL DISEASE; Z99.2 - DEPENDENCE ON RENAL DIALYSIS
--- NOTE | 2017-04-28 09:32 | PN ---
Progress Note (short form) - Note Progress Note: pt seen/ examined today with ENVIRONMENTAL PROJECTS ADVISOR Yessenia Pt comfortable documentation reviewed for endoscopy today. got vit k yesterday d/c abx. will follow. Problem List - Problems (1) Altered mental status Code(s): R41.82 - ALTERED MENTAL STATUS, UNSPECIFIED Qualifiers: Qualified Code(s): R41.82 - Altered mental status, unspecified (2) Elevated troponin I level Code(s): R74.8 - ABNORMAL LEVELS OF OTHER SERUM ENZYMES (3) Urinary tract infection Code(s): N39.0 - URINARY TRACT INFECTION, SITE NOT SPECIFIED Qualifiers: Qualified Code(s): N39.0 - Urinary tract infection, site not specified; R31.9 - Hematuria, unspecified; R31.9 - Hematuria, unspecified (4) Anemia Code(s): D64.9 - ANEMIA, UNSPECIFIED Qualifiers: Qualified Code(s): N18.6 - End stage renal disease; D63.1 - Anemia in chronic kidney disease; D63.1 - Anemia in chronic kidney disease; Z99.2 - Dependence on renal dialysis; Z99.2 - Dependence on renal dialysis; Z99.2 - Dependence on renal dialysis; Z99.2 - Dependence on renal dialysis (5) Atrial flutter Code(s): I48.92 - UNSPECIFIED ATRIAL FLUTTER Qualifiers: Qualified Code(s): I48.3 - Typical atrial flutter (6) CAD (coronary artery disease) Code(s): I25.10 - ATHSCL HEART DISEASE OF [place] CORONARY ARTERY W/O ANG PCTRS Qualifiers: Qualified Code(s): I25.10 - Atherosclerotic heart disease of [place] coronary artery without angina pectoris (7) ESRD on hemodialysis Code(s): N18.6 - END STAGE RENAL DISEASE; Z99.2 - DEPENDENCE ON RENAL DIALYSIS (8) Single implantable cardioverter-defibrillator (ICD) in situ Code(s): Z95.810 - PRESENCE OF AUTOMATIC (IMPLANTABLE) CARDIAC DEFIBRILLATOR
[2017-04-28] MEDS: SEVELAMER CARBONATE 800 MG TAB (FP) PO SCH ×3 (09:45→17:25)
[2017-04-28] MEDS: VITAMIN B COMP W-C 1 EA TABLET PO SCH (09:46)
[2017-04-28] MEDS: BACITRACIN 15 GM TUBE TOPICAL OINTMENT TP SCH (09:46)
[2017-04-28] MEDS: PREGABALIN 75 MG CAPSULE PO SCH (09:46)
[2017-04-28] MEDS: ARTIFICIAL TEARS (POLYVINYL ALCOHOL 1.4%) OPTH DROPS OU SCH ×2 (09:46→21:18)
[2017-04-28] MEDS: MULTIVITAMINS (DAILY MVI) TABLET (FP) PO SCH (09:47)
[2017-04-28] MEDS: SERTRALINE HCL 50 MG TABLET (FP) PO SCH (09:47)
[2017-04-28] MEDS: MIDODRINE HCL 5 MG TABLET PO SCH (09:47)
[2017-04-28] MEDS: PANTOPRAZOLE 40 MG TABLET (FP) PO SCH ×2 (09:47→21:18)
[2017-04-28 10:20] LABS: MCH 29.4 pg (25.7-33.7); MCHC 31.3 g/dl (32.0-36.0); MEAN CELL VOLUME 93.8 fl (80-96); MEAN PLT VOLUME 9.2 fl (7.5-11.1); PLATELET COUNT 117 K/MM3 (134-434); RDW 17.9 % (11.6-15.6); WHITE BLOOD COUNT 5.1 K/mm3 (4.0-10.0)
[2017-04-28 10:41] LABS: ANION GAP 12 (8-16); CALCIUM 8.4 mg/dL (8.5-10.1); CO2 29 mmol/L (21-32); CREATININE 4.4 mg/dL (0.55-1.02); GLUCOSE,RANDOM 128 mg/dL (74-106); PHOSPHOROUS 5.9 mg/dL (2.5-4.9)
[2017-04-28] MEDS ORDERED: EPOETIN ALFA 10,000 UNIT/1 ML VIAL IVPUSH ONE (12:00)
--- NOTE | 2017-04-28 13:30 | PN ---
Progress Note (short form) - Note Progress Note: Renal follow up for ESRD on HD with AMS Pt seen and examined at the bedside no acute complaints for HD and then colonoscopy today Vital Signs Temperature 97.6 F 04/28/17 08:15 Pulse Rate 96 H 04/28/17 12:20 Respiratory Rate 18 04/28/17 12:20 Blood Pressure 128/64 04/28/17 12:20 O2 Sat by Pulse Oximetry (%) 95 04/27/17 21:00 Intake & Output 04/25/17 04/26/17 04/27/17 04/28/17 23:59 23:59 23:59 23:59 Intake Total 048 429 2741 0 Balance 299 665 2354 0 Weight 62.777 kg 63.049 kg 61.689 kg 62.777 kg NAD, at baseline MS tachycardic No Le edema CBC, BMP 04/28/17 08:45 Current Medications Acetaminophen (Tylenol -) 650 mg PO Q6H PRN PRN Reason: FEVER OR PAIN Last Admin: 04/22/17 21:33 Dose: 650 mg Artificial Tears (Artificial Tears) 1 drop OU BID [facility] Last Admin: 04/28/17 09:46 Dose: Not Given Bacitracin (Bacitracin -) 1 applic TP DAILY [facility] Last Admin: 04/28/17 09:46 Dose: Not Given Levothyroxine Sodium (Synthroid -) 100 mcg PO DAILY@0700 [facility] Last Admin: 04/28/17 06:00 Dose: Not Given Metoprolol Succinate (Toprol Xl -) 50 mg PO SuTuThSa@1000 [facility] Last Admin: 04/27/17 09:42 Dose: 50 mg Midodrine (Proamatine -) 10 mg PO MoWeFr@10 [facility] Last Admin: 04/28/17 09:47 Dose: Not Given Multivit/Ca Carb/B Cmplx/FA/Prenat (Nephro-Mahendra -) 1 tablet PO DAILY [facility] Last Admin: 04/28/17 09:46 Dose: Not Given Multivitamins/Minerals/Vitamin C (Tab-A-Vit -) 1 tab PO DAILY [facility] Last Admin: 04/28/17 09:47 Dose: Not Given Pantoprazole Sodium (Protonix -) 40 mg PO BID [facility] Last Admin: 04/28/17 09:47 Dose: Not Given Potassium Phos/Sodium Phos (Phos-Nak Packet -) 1 packet PO TID [facility] Last Admin: 04/28/17 05:13 Dose: Not Given Pregabalin (Lyrica -) 75 mg PO DAILY [facility] Last Admin: 04/28/17 09:46 Dose: Not Given Sertraline HCl (Zoloft -) 50 mg PO DAILY [facility] Last Admin: 04/28/17 09:47 Dose: Not Given Sevelamer Carbonate (Renvela -) 800 mg PO TIDCM [facility] Last Admin: 04/28/17 09:45 Dose: Not Given Simethicone (Mylicon -) 80 mg PO Q4H PRN PRN Reason: GAS Last Admin: 04/25/17 18:12 Dose: 80 mg 89 year old woman with PMhx of ESRD on HD, CAD s/p stent, CHF, Hypertension, Hyperlipidemia, Skin Ca, Hypothyrodism who presented from HD unit with AMS. #AMS likely secondary to medications (baclofen) but r/o UTI now at baseline #ESRD on HD dialysis today #Chronic Anemia for EGD/Colonoscopy after dialysis continue dionisio with HD Thank you Yahir Cortez DO
--- NOTE | 2017-04-28 14:16 | PN ---
Progress Note, Physician History of Present Illness: Sensorium remains at baseline, underwent HD, EGD revealed hypertrophic gastric folds but no bleeding source. Colonoscopy revealed a proximal transverse colon angiodysplasia which is associated with angiodysplasias in the small bowel and is presumed source of occult bleeding. Selective polyps were removed. - Current Medication List Current Medications: Active Medications Acetaminophen (Tylenol -) 650 mg PO Q6H PRN PRN Reason: FEVER OR PAIN Last Admin: 04/22/17 21:33 Dose: 650 mg Artificial Tears (Artificial Tears) 1 drop OU BID [facility] Last Admin: 04/28/17 09:46 Dose: Not Given Bacitracin (Bacitracin -) 1 applic TP DAILY [facility] Last Admin: 04/28/17 09:46 Dose: Not Given Levothyroxine Sodium (Synthroid -) 100 mcg PO DAILY@0700 [facility] Last Admin: 04/28/17 06:00 Dose: Not Given Metoprolol Succinate (Toprol Xl -) 50 mg PO SuTuThSa@1000 [facility] Last Admin: 04/27/17 09:42 Dose: 50 mg Midodrine (Proamatine -) 10 mg PO MoWeFr@10 [facility] Last Admin: 04/28/17 09:47 Dose: Not Given Multivit/Ca Carb/B Cmplx/FA/Prenat (Nephro-Mahendra -) 1 tablet PO DAILY [facility] Last Admin: 04/28/17 09:46 Dose: Not Given Multivitamins/Minerals/Vitamin C (Tab-A-Vit -) 1 tab PO DAILY [facility] Last Admin: 04/28/17 09:47 Dose: Not Given Pantoprazole Sodium (Protonix -) 40 mg PO BID [facility] Last Admin: 04/28/17 09:47 Dose: Not Given Potassium Phos/Sodium Phos (Phos-Nak Packet -) 1 packet PO TID [facility] Last Admin: 04/28/17 05:13 Dose: Not Given Pregabalin (Lyrica -) 75 mg PO DAILY [facility] Last Admin: 04/28/17 09:46 Dose: Not Given Sertraline HCl (Zoloft -) 50 mg PO DAILY [facility] Last Admin: 04/28/17 09:47 Dose: Not Given Sevelamer Carbonate (Renvela -) 800 mg PO TIDCM [facility] Last Admin: 04/28/17 09:45 Dose: Not Given Simethicone (Mylicon -) 80 mg PO Q4H PRN PRN Reason: GAS Last Admin: 04/25/17 18:12 Dose: 80 mg - Objective Vital Signs: Vital Signs Temperature 97.6 F 04/28/17 08:15 Pulse Rate 96 H 04/28/17 12:20 Respiratory Rate 18 04/28/17 12:20 Blood Pressure 128/64 04/28/17 12:20 O2 Sat by Pulse Oximetry (%) 95 04/27/17 21:00 Constitutional: Yes: No Distress, Calm Neck: Yes: Supple Cardiovascular: Yes: Pulse Irregular Respiratory: Yes: Regular, Diminished Gastrointestinal: Yes: Soft, Hypoactive Bowel Sounds Edema: No Labs: CBC, BMP 04/28/17 08:45 INR, PTT INR 1.98 (0.82-1.09) H 04/28/17 06:30 Problem List - Problems (1) Elevated troponin I level Code(s): R74.8 - ABNORMAL LEVELS OF OTHER SERUM ENZYMES (2) Anemia Code(s): D64.9 - ANEMIA, UNSPECIFIED Qualifiers: Chronic kidney disease stage: on chronic dialysis (3) Aortic stenosis Code(s): I35.0 - NONRHEUMATIC AORTIC (VALVE) STENOSIS Qualifiers: Cardiac valve disease etiology: nonrheumatic Qualified Code(s): I35.0 - Nonrheumatic aortic (valve) stenosis (4) Atrial flutter Code(s): I48.92 - UNSPECIFIED ATRIAL FLUTTER Qualifiers: Atrial flutter type: typical Qualified Code(s): I48.3 - Typical atrial flutter (5) CAD (coronary artery disease) Code(s): I25.10 - ATHSCL HEART DISEASE OF [place] CORONARY ARTERY W/O ANG PCTRS Qualifiers: Coronary Disease-Associated Artery/Lesion type: [place] artery [place] vs. transplanted heart: [place] heart Associated angina: without angina Qualified Code(s): I25.10 - Atherosclerotic heart disease of [place] coronary artery without angina pectoris (6) ESRD on hemodialysis Code(s): N18.6 - END STAGE RENAL DISEASE; Z99.2 - DEPENDENCE ON RENAL DIALYSIS (7) History of percutaneous coronary intervention Code(s): Z98.89 - OTHER SPECIFIED POSTPROCEDURAL STATES * DO NOT USE * (8) Hyperlipidemia Code(s): E78.5 - HYPERLIPIDEMIA, UNSPECIFIED Qualifiers: Hyperlipidemia type: pure hypercholesterolemia Qualified Code(s): E78.00 - Pure hypercholesterolemia, unspecified (9) Hypothyroidism Code(s): E03.9 - HYPOTHYROIDISM, UNSPECIFIED Qualifiers: Hypothyroidism type: unspecified Qualified Code(s): E03.9 - Hypothyroidism , unspecified (10) Single implantable cardioverter-defibrillator (ICD) in situ Code(s): Z95.810 - PRESENCE OF AUTOMATIC (IMPLANTABLE) CARDIAC DEFIBRILLATOR (11) Subendocardial ischemia Code(s): I24.8 - OTHER FORMS OF ACUTE ISCHEMIC HEART DISEASE (12) Systolic dysfunction without heart failure Code(s): I51.9 - HEART DISEASE, UNSPECIFIED (13) Angiodysplasia of intestinal tract Code(s): K55.20 - ANGIODYSPLASIA OF COLON WITHOUT HEMORRHAGE Assessment/Plan 1. Altered mental status likely secondary to medications (baclofen) - currently resolved 2. Persistent atrial fibrillation/flutter with subtherapeutic INR 3. 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 Elevated troponin - demand ischemia 5. CAD, s/p PCI/stent, angina 6. 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 Type 2 DM 8. Hypercholesterolemia 9. Mild aortic valve stenosis and aortic valve regurgitation 10. Anemia and thrombocytopenia 11. Hypothyroidism 12. H/o hiatal hernia and gastric ulcer 13. Angiodysplasia PLAN: 1. Resume Coumadin 2 mg daily 2 days post EGD/colonoscopy 2. Continue Metoprolol ER 50 mg and Midodrine 10 mg MWF with HD 3. ICD interrogation as outpatient 4. HD as per renal service - transfusion PRBC as needed. 5. F/u biopsy
[2017-04-28 14:48] LABS: CREATININE 1.5 mg/dL (0.55-1.02)
--- NOTE | 2017-04-28 14:59 | PN ---
Progress Note (short form) - Note Progress Note: GI Procedure NOte: Please see EGD and colonoscopy reports. EGD revealed hypertrophic gastric folds but no bleeding source. Colonoscopy revealed a proximal transverse colon angiodysplasia which I believe is associated with angiodysplasias in the small bowel. I believe this is the source of occult bleeding. Selective polyps were removed. Do not resume any form of anticoagulation for 2 more days. Problem List - Problems (1) Peptic ulcer of stomach Code(s): K25.9 - GASTRIC ULCER, UNSP ACUTE OR CHRONIC, W/O HEMOR OR PERF Qualifiers: Gastric ulcer chronicity: unspecified ulcer chronicity Qualified Code(s): K25.9 - Gastric ulcer, unspecified as acute or chronic, without hemorrhage or perforation (2) History of GI bleed Code(s): Z87.19 - PERSONAL HISTORY OF OTHER DISEASES OF THE DIGESTIVE SYSTEM (3) Anemia Code(s): D64.9 - ANEMIA, UNSPECIFIED Qualifiers: Chronic kidney disease stage: on chronic dialysis (4) GERD (gastroesophageal reflux disease) Code(s): K21.9 - GASTRO-ESOPHAGEAL REFLUX DISEASE WITHOUT ESOPHAGITIS Qualifiers: Esophagitis presence: with esophagitis Qualified Code(s): K21.0 - Gastro- esophageal reflux disease with esophagitis (5) GI bleed Code(s): K92.2 - GASTROINTESTINAL HEMORRHAGE, UNSPECIFIED Qualifiers: GI bleed type/associated pathology: melena Qualified Code(s): K92.1 - Melena (6) Anemia associated with acute blood loss Code(s): D62 - ACUTE POSTHEMORRHAGIC ANEMIA (7) Family history of GI malignancy Code(s): Z80.0 - FAMILY HISTORY OF MALIGNANT NEOPLASM OF DIGESTIVE ORGANS
[2017-04-28] MEDS ORDERED: PT OWN MED DRAWER 7, Y5N ONE (20:14)
[2017-04-28] MEDS: ACETAMINOPHEN 325 MG TABLET (FP) PO PRN (21:17)
[2017-04-29] MEDS: LEVOTHYROXINE NA 100 MCG TABLET (FP) PO SCH (06:16)
[2017-04-29] MEDS: NAPH,MB-DB/K PH,MBDB POWDER PACKET PO SCH ×3 (06:17→21:10)
[2017-04-29 08:03] LABS: BASO % 0.6 % (0-2.0); EOS % 0.6 % (0-4.5); MCH 29.4 pg (25.7-33.7); MCHC 31.3 g/dl (32.0-36.0); MEAN CELL VOLUME 93.9 fl (80-96); MEAN PLT VOLUME 9.1 fl (7.5-11.1); NEUT % 75.9 % (42.8-82.8); PLATELET COUNT 103 K/MM3 (134-434); WHITE BLOOD COUNT 4.3 K/mm3 (4.0-10.0)
[2017-04-29 08:17] LABS: ANION GAP 13 (8-16); CO2 31 mmol/L (21-32); CREATININE 3.5 mg/dL (0.55-1.02); GLUCOSE,RANDOM 140 mg/dL (74-106)
[2017-04-29 08:35] LABS: INR 1.49 (0.82-1.09); PROTHROMBIN TIME (PATIENT) 16.8 SEC (9.98-11.88)
[2017-04-29] MEDS: SEVELAMER CARBONATE 800 MG TAB (FP) PO SCH ×3 (08:46→17:38)
[2017-04-29] MEDS: ARTIFICIAL TEARS (POLYVINYL ALCOHOL 1.4%) OPTH DROPS OU SCH ×2 (09:43→21:09)
[2017-04-29] MEDS: PREGABALIN 75 MG CAPSULE PO SCH (09:43)
[2017-04-29] MEDS: BACITRACIN 15 GM TUBE TOPICAL OINTMENT TP SCH (09:43)
[2017-04-29] MEDS: VITAMIN B COMP W-C 1 EA TABLET PO SCH (09:44)
[2017-04-29] MEDS: METOPROLOL SUCCINATE 50 MG TAB.SR.24H (FP) PO SCH (09:46)
[2017-04-29] MEDS: MULTIVITAMINS (DAILY MVI) TABLET (FP) PO SCH (09:46)
[2017-04-29] MEDS: PANTOPRAZOLE 40 MG TABLET (FP) PO SCH ×2 (09:46→21:09)
[2017-04-29] MEDS: SERTRALINE HCL 50 MG TABLET (FP) PO SCH (09:47)
--- NOTE | 2017-04-29 09:52 | PN ---
Progress Note (short form) - Note Progress Note: Renal follow up for ESRD on HD with AMS Pt seen and examined at the bedside reprots having a small yellow BM this am no abd pain s/p EGD yesterday s/p HD yesterday Vital Signs Temperature 97.9 F 04/29/17 08:23 Pulse Rate 100 H 04/29/17 08:23 Respiratory Rate 20 04/29/17 08:23 Blood Pressure 120/61 04/29/17 08:23 O2 Sat by Pulse Oximetry (%) 95 04/28/17 21:00 Intake & Output 04/26/17 04/27/17 04/28/17 04/29/17 23:59 23:59 23:59 23:59 Intake Total 650 1220 930 Balance 650 1220 930 Weight 63.049 kg 61.689 kg 62.777 kg 61.774 kg NAD, at baseline MS tachycardic No Le edema CBC, BMP 04/29/17 06:00 04/29/17 06:00 Current Medications Acetaminophen (Tylenol -) 650 mg PO Q6H PRN PRN Reason: FEVER OR PAIN Last Admin: 04/28/17 21:17 Dose: 650 mg Artificial Tears (Artificial Tears) 1 drop OU BID [facility] Last Admin: 04/29/17 09:43 Dose: 1 drop Bacitracin (Bacitracin -) 1 applic TP DAILY [facility] Last Admin: 04/29/17 09:43 Dose: 1 applic Levothyroxine Sodium (Synthroid -) 100 mcg PO DAILY@0700 [facility] Last Admin: 04/29/17 06:16 Dose: 100 mcg Metoprolol Succinate (Toprol Xl -) 50 mg PO SuTuThSa@1000 [facility] Last Admin: 04/29/17 09:46 Dose: 50 mg Midodrine (Proamatine -) 10 mg PO MoWeFr@10 [facility] Last Admin: 04/28/17 09:47 Dose: Not Given Multivit/Ca Carb/B Cmplx/FA/Prenat (Nephro-Ma[place]dra -) 1 tablet PO DAILY [facility] Last Admin: 04/29/17 09:44 Dose: 1 tablet Multivitamins/Minerals/Vitamin C (Tab-A-Vit -) 1 tab PO DAILY [facility] Last Admin: 04/29/17 09:46 Dose: 1 tab Pantoprazole Sodium (Protonix -) 40 mg PO BID [facility] Last Admin: 04/29/17 09:46 Dose: 40 mg Potassium Phos/Sodium Phos (Phos-Nak Packet -) 1 packet PO TID [facility] Last Admin: 04/29/17 06:17 Dose: 1 packet Pregabalin (Lyrica -) 75 mg PO DAILY [facility] Last Admin: 04/29/17 09:43 Dose: 75 mg Sertraline HCl (Zoloft -) 50 mg PO DAILY [facility] Last Admin: 04/29/17 09:47 Dose: 50 mg Sevelamer Carbonate (Renvela -) 800 mg PO TIDCM [facility] Last Admin: 04/29/17 08:46 Dose: 800 mg Simethicone (Mylicon -) 80 mg PO Q4H PRN PRN Reason: GAS Last Admin: 04/25/17 18:12 Dose: 80 mg 89 year old woman with PMhx of ESRD on HD, CAD s/p stent, CHF, Hypertension, Hyperlipidemia, Skin Ca, Hypothyrodism who presented from HD unit with AMS. #AMS likely secondary to medications (baclofen) but r/o UTI now resolved #ESRD on HD s/p dialysis yesterday no acute indication for LABORATORY DIRECTOR today #Chronic Anemia s/p EGD/Colonoscopy angiodisplasia in transverse colon H/H stable will continue HILARIO with HD Thank you Yahir Cortez DO
[2017-04-29] MEDS: SIMETHICONE 80 MG TAB.CHEW (FP) PO PRN ×2 (10:35→21:08)
--- NOTE | 2017-04-29 12:30 | PN ---
Progress Note, Physician Chief Complaint: Complains of nausea History of Present Illness: Patient was seen and examined. Awake and alert. Chart was reviewed Denies chest pain, SOB or palpitations (+) nausea - Current Medication List Current Medications: Active Medications Acetaminophen (Tylenol -) 650 mg PO Q6H PRN PRN Reason: FEVER OR PAIN Last Admin: 04/28/17 21:17 Dose: 650 mg Artificial Tears (Artificial Tears) 1 drop OU BID [facility] Last Admin: 04/29/17 09:43 Dose: 1 drop Bacitracin (Bacitracin -) 1 applic TP DAILY [facility] Last Admin: 04/29/17 09:43 Dose: 1 applic Levothyroxine Sodium (Synthroid -) 100 mcg PO DAILY@0700 [facility] Last Admin: 04/29/17 06:16 Dose: 100 mcg Metoprolol Succinate (Toprol Xl -) 50 mg PO SuTuThSa@1000 [facility] Last Admin: 04/29/17 09:46 Dose: 50 mg Midodrine (Proamatine -) 10 mg PO MoWeFr@10 [facility] Last Admin: 04/28/17 09:47 Dose: Not Given Multivit/Ca Carb/B Cmplx/FA/Prenat (Nephro-Mahendra -) 1 tablet PO DAILY [facility] Last Admin: 04/29/17 09:44 Dose: 1 tablet Multivitamins/Minerals/Vitamin C (Tab-A-Vit -) 1 tab PO DAILY [facility] Last Admin: 04/29/17 09:46 Dose: 1 tab Pantoprazole Sodium (Protonix -) 40 mg PO BID [facility] Last Admin: 04/29/17 09:46 Dose: 40 mg Potassium Phos/Sodium Phos (Phos-Nak Packet -) 1 packet PO TID [facility] Last Admin: 04/29/17 06:17 Dose: 1 packet Pregabalin (Lyrica -) 75 mg PO DAILY [facility] Last Admin: 04/29/17 09:43 Dose: 75 mg Sertraline HCl (Zoloft -) 50 mg PO DAILY [facility] Last Admin: 04/29/17 09:47 Dose: 50 mg Sevelamer Carbonate (Renvela -) 800 mg PO TIDCM [facility] Last Admin: 04/29/17 08:46 Dose: 800 mg Simethicone (Mylicon -) 80 mg PO Q4H PRN PRN Reason: GAS Last Admin: 04/29/17 10:35 Dose: 80 mg - Objective Vital Signs: Vital Signs Temperature 97.9 F 04/29/17 08:23 Pulse Rate 100 H 04/29/17 08:23 Respiratory Rate 20 04/29/17 08:23 Blood Pressure 120/61 04/29/17 08:23 O2 Sat by Pulse Oximetry (%) 95 04/28/17 21:00 Constitutional: Yes: Well Nourished Eyes: Yes: PERRL HENT: Yes: Atraumatic Neck: Yes: Supple Cardiovascular: Yes: Pulse Irregular, S1, S2 Respiratory: Yes: Diminished Gastrointestinal: Yes: Normal Bowel Sounds, Soft. No: Tenderness Edema: No Labs: CBC, BMP 04/29/17 06:00 04/29/17 06:00 INR, PTT INR 1.49 (0.82-1.09) H 04/29/17 06:00 Problem List - Problems (1) Demand ischemia Code(s): I24.8 - OTHER FORMS OF ACUTE ISCHEMIC HEART DISEASE (2) Altered mental status Code(s): R41.82 - ALTERED MENTAL STATUS, UNSPECIFIED Qualifiers: Altered mental status type: unspecified Qualified Code(s): R41.82 - Altered mental status, unspecified (3) Anemia associated with acute blood loss Code(s): D62 - ACUTE POSTHEMORRHAGIC ANEMIA (4) Elevated troponin I level Code(s): R74.8 - ABNORMAL LEVELS OF OTHER SERUM ENZYMES (5) Urinary tract infection Code(s): N39.0 - URINARY TRACT INFECTION, SITE NOT SPECIFIED Qualifiers: Urinary tract infection type: site unspecified Hematuria presence: with hematuria Qualified Code(s): N39.0 - Urinary tract infection, site not specified; R31.9 - Hematuria, unspecified; R31.9 - Hematuria, unspecified (6) AV fistula thrombosis Code(s): T82.868A - THROMBOSIS DUE TO VASCULAR PROSTH DEV/GRFT, INIT Qualifiers: Encounter type: initial encounter Qualified Code(s): T82.868A - Thrombosis due to vascular prosthetic devices, implants and grafts, initial encounter (7) Acute on chronic systolic and diastolic heart failure, NYHA class 3 Code(s): I50.43 - ACUTE ON CHRONIC COMBINED SYSTOLIC AND DIASTOLIC HRT FAIL (8) Aortic stenosis Code(s): I35.0 - NONRHEUMATIC AORTIC (VALVE) STENOSIS Qualifiers: Cardiac valve disease etiology: nonrheumatic Qualified Code(s): I35.0 - Nonrheumatic aortic (valve) stenosis (9) Atrial flutter Code(s): I48.92 - UNSPECIFIED ATRIAL FLUTTER Qualifiers: Atrial flutter type: typical Qualified Code(s): I48.3 - Typical atrial flutter (10) CAD (coronary artery disease) Code(s): I25.10 - ATHSCL HEART DISEASE OF [place] CORONARY ARTERY W/O ANG PCTRS Qualifiers: Coronary Disease-Associated Artery/Lesion type: [place] artery [place] vs. transplanted heart: [place] heart Associated angina: without angina Qualified Code(s): I25.10 - Atherosclerotic heart disease of [place] coronary artery without angina pectoris (11) Diabetes Code(s): E11.9 - TYPE 2 DIABETES MELLITUS WITHOUT COMPLICATIONS Qualifiers: (12) ESRD on hemodialysis Code(s): N18.6 - END STAGE RENAL DISEASE; Z99.2 - DEPENDENCE ON RENAL DIALYSIS (13) GERD (gastroesophageal reflux disease) Code(s): K21.9 - GASTRO-ESOPHAGEAL REFLUX DISEASE WITHOUT ESOPHAGITIS Qualifiers: Esophagitis presence: with esophagitis Qualified Code(s): K21.0 - Gastro- esophageal reflux disease with esophagitis (14) GI bleed Code(s): K92.2 - GASTROINTESTINAL HEMORRHAGE, UNSPECIFIED Qualifiers: GI bleed type/associated pathology: melena Qualified Code(s): K92.1 - Melena (15) Generalized weakness Code(s): R53.1 - WEAKNESS (16) HTN (hypertension) Code(s): I10 - ESSENTIAL (PRIMARY) HYPERTENSION Qualifiers: Hypertension type: essential hypertension Qualified Code(s): I10 - Essential (primary) hypertension (17) History of percutaneous coronary intervention Code(s): Z98.89 - OTHER SPECIFIED POSTPROCEDURAL STATES * DO NOT USE * (18) Hyperlipidemia Code(s): E78.5 - HYPERLIPIDEMIA, UNSPECIFIED Qualifiers: Hyperlipidemia type: pure hypercholesterolemia Qualified Code(s): E78.00 - Pure hypercholesterolemia, unspecified (19) Hypothyroidism Code(s): E03.9 - HYPOTHYROIDISM, UNSPECIFIED Qualifiers: Hypothyroidism type: unspecified Qualified Code(s): E03.9 - Hypothyroidism , unspecified (20) Single implantable cardioverter-defibrillator (ICD) in situ Code(s): Z95.810 - PRESENCE OF AUTOMATIC (IMPLANTABLE) CARDIAC DEFIBRILLATOR (21) Systolic dysfunction without heart failure Code(s): I51.9 - HEART DISEASE, UNSPECIFIED Assessment/Plan 1. Altered mental status likely secondary to medications (baclofen) - currently resolved 2. Persistent atrial fibrillation/flutter with therapeutic INR 3. 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 Elevated troponin - demand ischemia 5. CAD, s/p PCI/stent, angina 6. 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 Type 2 DM 8. Hypercholesterolemia 9. Mild aortic valve stenosis and aortic valve regurgitation 10. Anemia and thrombocytopenia 11. Hypothyroidism 12. Hiatal hernia and gastric ulcer on EGD PLAN: 1. Continue Coumadin per INR 2. Continue Metoprolol ER 50 mg and Midodrine 10 mg MWF with HD 3. ICD interrogation as outpatient 4. HD as per renal service - transfusion PRBC as needed. 5. GI protection Further plans are to follow Len Guevara MD
--- NOTE | 2017-04-29 13:46 | PN ---
Progress Note (short form) - Note Progress Note: Pt seen/ examined. s/p egd/ colonoscopy yesterday finding noted pt says passed large mass today denies blood as such denies pain all f/u noted Vital Signs Temp 97.9 F 04/29/17 08:23 Pulse 100 H 04/29/17 08:23 Resp 20 04/29/17 09:00 BP 120/61 04/29/17 08:23 Pulse Ox 94 L 04/29/17 09:00 Intake & Output 04/28/17 04/29/17 04/29/17 23:59 11:59 23:59 Intake Total 930 Balance 930 Weight 136 lb 3 oz Intake: IV 100 IVPB 100 Oral 440 Fresh Frozen Plasma 290 Other: Voiding Method Toilet Toilet # Unmeasured Voids Straight Cath 2 Void 2 4 Bowel Movement Yes # Bowel Movements 1 Weight Measurement Method Standing Scale Active Medications Acetaminophen (Tylenol -) 650 mg PO Q6H PRN PRN Reason: FEVER OR PAIN Last Admin: 04/28/17 21:17 Dose: 650 mg Artificial Tears (Artificial Tears) 1 drop OU BID [facility] Last Admin: 04/29/17 09:43 Dose: 1 drop Bacitracin (Bacitracin -) 1 applic TP DAILY [facility] Last Admin: 04/29/17 09:43 Dose: 1 applic Levothyroxine Sodium (Synthroid -) 100 mcg PO DAILY@0700 [facility] Last Admin: 04/29/17 06:16 Dose: 100 mcg Metoprolol Succinate (Toprol Xl -) 50 mg PO SuTuThSa@1000 [facility] Last Admin: 04/29/17 09:46 Dose: 50 mg Midodrine (Proamatine -) 10 mg PO MoWeFr@10 [facility] Last Admin: 04/28/17 09:47 Dose: Not Given Multivit/Ca Carb/B Cmplx/FA/Prenat (Nephro-Mahendra -) 1 tablet PO DAILY [facility] Last Admin: 04/29/17 09:44 Dose: 1 tablet Multivitamins/Minerals/Vitamin C (Tab-A-Vit -) 1 tab PO DAILY [facility] Last Admin: 04/29/17 09:46 Dose: 1 tab Pantoprazole Sodium (Protonix -) 40 mg PO BID [facility] Last Admin: 04/29/17 09:46 Dose: 40 mg Potassium Phos/Sodium Phos (Phos-Nak Packet -) 1 packet PO TID [facility] Last Admin: 04/29/17 06:17 Dose: 1 packet Pregabalin (Lyrica -) 75 mg PO DAILY [facility] Last Admin: 04/29/17 09:43 Dose: 75 mg Sertraline HCl (Zoloft -) 50 mg PO DAILY [facility] Last Admin: 04/29/17 09:47 Dose: 50 mg Sevelamer Carbonate (Renvela -) 800 mg PO TIDCM [facility] Last Admin: 04/29/17 12:47 Dose: 800 mg Simethicone (Mylicon -) 80 mg PO Q4H PRN PRN Reason: GAS Last Admin: 04/29/17 10:35 Dose: 80 mg CBC, BMP 04/29/17 06:00 04/29/17 06:00 Physical Exam. Constitutional: Yes: Calm,comfortable. Eyes: Yes: Conjunctiva Clear. Neck: Yes: Supple/ no jvd . no bruit Cardiovascular: Yes: Pulse Irregular Respiratory: Yes: Diminished at bases. Gastrointestinal: Yes: Normal Bowel Sounds, Soft/ non tender. Edema: No neuro--alert and awake Assessment/Plan stable continue present care xanax for anxiety physical therapy off abx dialysis as per renal. Endoscopic finding noted Coumadin on hold x 48 hours per gi recommendation f/u labs discharge planning Insurance denies stay-called yesterday for pier - to pier- reported that Director will call me on monday. Problem List - Problems (1) Altered mental status Code(s): R41.82 - ALTERED MENTAL STATUS, UNSPECIFIED Qualifiers: Altered mental status type: unspecified Qualified Code(s): R41.82 - Altered mental status, unspecified (2) Elevated troponin I level Code(s): R74.8 - ABNORMAL LEVELS OF OTHER SERUM ENZYMES (3) Urinary tract infection Code(s): N39.0 - URINARY TRACT INFECTION, SITE NOT SPECIFIED Qualifiers: Urinary tract infection type: site unspecified Hematuria presence: with hematuria Qualified Code(s): N39.0 - Urinary tract infection, site not specified; R31.9 - Hematuria, unspecified; R31.9 - Hematuria, unspecified (4) Anemia Code(s): D64.9 - ANEMIA, UNSPECIFIED Qualifiers: Chronic kidney disease stage: on chronic dialysis (5) Atrial flutter Code(s): I48.92 - UNSPECIFIED ATRIAL FLUTTER Qualifiers: Atrial flutter type: typical Qualified Code(s): I48.3 - Typical atrial flutter (6) CAD (coronary artery disease) Code(s): I25.10 - ATHSCL HEART DISEASE OF [place] CORONARY ARTERY W/O ANG PCTRS Qualifiers: Coronary Disease-Associated Artery/Lesion type: [place] artery [place] vs. transplanted heart: [place] heart Associated angina: without angina Qualified Code(s): I25.10 - Atherosclerotic heart disease of [place] coronary artery without angina pectoris (7) ESRD on hemodialysis Code(s): N18.6 - END STAGE RENAL DISEASE; Z99.2 - DEPENDENCE ON RENAL DIALYSIS (8) Single implantable cardioverter-defibrillator (ICD) in situ Code(s): Z95.810 - PRESENCE OF AUTOMATIC (IMPLANTABLE) CARDIAC DEFIBRILLATOR
[2017-04-29] MEDS ORDERED: PT OWN MED DRAWER 7, Y5N ONE (20:50)
[2017-04-30] MEDS: SIMETHICONE 80 MG TAB.CHEW (FP) PO PRN (01:36)
[2017-04-30] MEDS: NAPH,MB-DB/K PH,MBDB POWDER PACKET PO SCH ×3 (06:02→21:15)
[2017-04-30] MEDS: LEVOTHYROXINE NA 100 MCG TABLET (FP) PO SCH (06:02)
[2017-04-30 08:02] LABS: BASO % 0.5 % (0-2.0); EOS % 0.5 % (0-4.5); MCH 29.6 pg (25.7-33.7); MCHC 31.5 g/dl (32.0-36.0); MEAN CELL VOLUME 94.1 fl (80-96); MEAN PLT VOLUME 9.8 fl (7.5-11.1); NEUT % 75.5 % (42.8-82.8); PLATELET COUNT 109 K/MM3 (134-434); RDW 17.8 % (11.6-15.6); WHITE BLOOD COUNT 6.2 K/mm3 (4.0-10.0)
[2017-04-30] MEDS: SEVELAMER CARBONATE 800 MG TAB (FP) PO SCH ×3 (08:12→17:14)
[2017-04-30 08:19] LABS: ALK PHOS 225 U/L (45-117); ANION GAP 11 (8-16); BILIRUBIN,TOTAL 1.2 mg/dL (0.2-1.0); CALCIUM 8.4 mg/dL (8.5-10.1); CO2 31 mmol/L (21-32); CREATININE 4.8 mg/dL (0.55-1.02); GLUCOSE,RANDOM 138 mg/dL (74-106); SGOT/AST 13 U/L (15-37); SGPT/ALT 16 U/L (12-78); TOT PROT 6.5 g/dl (6.4-8.2)
[2017-04-30] MEDS: BACITRACIN 15 GM TUBE TOPICAL OINTMENT TP SCH (09:25)
[2017-04-30] MEDS: PANTOPRAZOLE 40 MG TABLET (FP) PO SCH ×2 (09:25→21:16)
[2017-04-30] MEDS: ARTIFICIAL TEARS (POLYVINYL ALCOHOL 1.4%) OPTH DROPS OU SCH ×2 (09:25→21:15)
[2017-04-30] MEDS: VITAMIN B COMP W-C 1 EA TABLET PO SCH (09:25)
[2017-04-30] MEDS: MULTIVITAMINS (DAILY MVI) TABLET (FP) PO SCH (09:26)
[2017-04-30] MEDS: METOPROLOL SUCCINATE 50 MG TAB.SR.24H (FP) PO SCH (09:26)
[2017-04-30] MEDS: PREGABALIN 75 MG CAPSULE PO SCH (09:27)
[2017-04-30] MEDS: SERTRALINE HCL 50 MG TABLET (FP) PO SCH (09:27)
[2017-04-30] MEDS: MIDODRINE HCL 5 MG TABLET PO SCH (10:15)
--- NOTE | 2017-04-30 10:53 | PN ---
Progress Note (short form) - Note Progress Note: pt comfortable no bleeding. feels ok. Vital Signs Temp 97.9 F 04/30/17 06:00 Pulse 86 04/30/17 06:00 Resp 20 04/30/17 06:00 BP 132/67 04/30/17 06:00 Pulse Ox 95 04/29/17 21:00 Intake & Output 04/29/17 04/29/17 04/30/17 11:59 23:59 11:59 Intake Total 500 Balance 500 Weight 136 lb 3 oz 137 lb 8 oz Intake: IVPB 0 Oral 500 Other: Voiding Method Toilet Toilet Toilet # Unmeasured Voids Straight Cath 2 1 Void 4 1 2 Bowel Movement Yes Yes No # Bowel Movements 1 1 Weight Measurement Method Standing Scale Standing Scale Active Medications Acetaminophen (Tylenol -) 650 mg PO Q6H PRN PRN Reason: FEVER OR PAIN Last Admin: 04/28/17 21:17 Dose: 650 mg Artificial Tears (Artificial Tears) 1 drop OU BID [facility] Last Admin: 04/30/17 09:25 Dose: 1 drop Bacitracin (Bacitracin -) 1 applic TP DAILY [facility] Last Admin: 04/30/17 09:25 Dose: 1 applic Levothyroxine Sodium (Synthroid -) 100 mcg PO DAILY@0700 [facility] Last Admin: 04/30/17 06:02 Dose: 100 mcg Metoprolol Succinate (Toprol Xl -) 50 mg PO SuTuThSa@1000 [facility] Last Admin: 04/30/17 09:26 Dose: 50 mg Midodrine (Proamatine -) 10 mg PO MoWeFr@10 [facility] Last Admin: 04/28/17 09:47 Dose: Not Given Multivit/Ca Carb/B Cmplx/FA/Prenat (Nephro-Mahendra -) 1 tablet PO DAILY [facility] Last Admin: 04/30/17 09:25 Dose: 1 tablet Multivitamins/Minerals/Vitamin C (Tab-A-Vit -) 1 tab PO DAILY [facility] Last Admin: 04/30/17 09:26 Dose: 1 tab Pantoprazole Sodium (Protonix -) 40 mg PO BID [facility] Last Admin: 04/30/17 09:25 Dose: 40 mg Potassium Phos/Sodium Phos (Phos-Nak Packet -) 1 packet PO TID [facility] Last Admin: 04/30/17 06:02 Dose: 1 packet Sertraline HCl (Zoloft -) 50 mg PO DAILY [facility] Last Admin: 04/30/17 09:27 Dose: 50 mg Sevelamer Carbonate (Renvela -) 800 mg PO TIDCM [facility] Last Admin: 04/30/17 08:12 Dose: 800 mg Simethicone (Mylicon -) 80 mg PO Q4H PRN PRN Reason: GAS Last Admin: 04/30/17 01:36 Dose: 80 mg CBC, BMP 04/30/17 06:00 04/30/17 06:00 Physical Exam. Constitutional: Yes: Calm,comfortable. Eyes: Yes: Conjunctiva Clear. Neck: Yes: Supple/ no jvd . no bruit. Cardiovascular: Yes: Pulse Irregular Respiratory: Yes: Diminished at bases. Gastrointestinal: Yes: Normal Bowel Sounds, Soft/ non tender. Edema: No neuro--alert and awake Assessment/Plan stable continue present care xanax for anxiety physical therapy off abx dialysis as per renal. Coumadin on hold x restart tomorrow. f/u labs noted discharge planning- anticipate tomorrow Problem List - Problems (1) Altered mental status Code(s): R41.82 - ALTERED MENTAL STATUS, UNSPECIFIED Qualifiers: Altered mental status type: unspecified Qualified Code(s): R41.82 - Altered mental status, unspecified (2) Elevated troponin I level Code(s): R74.8 - ABNORMAL LEVELS OF OTHER SERUM ENZYMES (3) Urinary tract infection Code(s): N39.0 - URINARY TRACT INFECTION, SITE NOT SPECIFIED Qualifiers: Urinary tract infection type: site unspecified Hematuria presence: with hematuria Qualified Code(s): N39.0 - Urinary tract infection, site not specified; R31.9 - Hematuria, unspecified; R31.9 - Hematuria, unspecified (4) Anemia Code(s): D64.9 - ANEMIA, UNSPECIFIED Qualifiers: Chronic kidney disease stage: on chronic dialysis (5) Atrial flutter Code(s): I48.92 - UNSPECIFIED ATRIAL FLUTTER Qualifiers: Atrial flutter type: typical Qualified Code(s): I48.3 - Typical atrial flutter (6) CAD (coronary artery disease) Code(s): I25.10 - ATHSCL HEART DISEASE OF [place] CORONARY ARTERY W/O ANG PCTRS Qualifiers: Coronary Disease-Associated Artery/Lesion type: [place] artery [place] vs. transplanted heart: [place] heart Associated angina: without angina Qualified Code(s): I25.10 - Atherosclerotic heart disease of [place] coronary artery without angina pectoris (7) ESRD on hemodialysis Code(s): N18.6 - END STAGE RENAL DISEASE; Z99.2 - DEPENDENCE ON RENAL DIALYSIS (8) Single implantable cardioverter-defibrillator (ICD) in situ Code(s): Z95.810 - PRESENCE OF AUTOMATIC (IMPLANTABLE) CARDIAC DEFIBRILLATOR
[2017-04-30] MEDS ORDERED: PT OWN MED DRAWER 7, Y5N ONE ×2 (18:40→18:49)
--- NOTE | 2017-04-30 21:22 | PN ---
Progress Note, Physician Chief Complaint: Feels better History of Present Illness: Patient was seen and examined. Awake and alert. Chart was reviewed Denies chest pain, SOB or palpitations Denies nausea - Current Medication List Current Medications: Active Medications Acetaminophen (Tylenol -) 650 mg PO Q6H PRN PRN Reason: FEVER OR PAIN Last Admin: 04/28/17 21:17 Dose: 650 mg Artificial Tears (Artificial Tears) 1 drop OU BID [facility] Last Admin: 04/30/17 21:15 Dose: 1 drop Bacitracin (Bacitracin -) 1 applic TP DAILY [facility] Last Admin: 04/30/17 09:25 Dose: 1 applic Levothyroxine Sodium (Synthroid -) 100 mcg PO DAILY@0700 [facility] Last Admin: 04/30/17 06:02 Dose: 100 mcg Metoprolol Succinate (Toprol Xl -) 50 mg PO SuTuThSa@1000 [facility] Last Admin: 04/30/17 09:26 Dose: 50 mg Midodrine (Proamatine -) 10 mg PO MoWeFr@10 [facility] Last Admin: 04/30/17 10:15 Dose: 10 mg Multivit/Ca Carb/B Cmplx/FA/Prenat (Nephro-Mahendra -) 1 tablet PO DAILY [facility] Last Admin: 04/30/17 09:25 Dose: 1 tablet Multivitamins/Minerals/Vitamin C (Tab-A-Vit -) 1 tab PO DAILY [facility] Last Admin: 04/30/17 09:26 Dose: 1 tab Pantoprazole Sodium (Protonix -) 40 mg PO BID [facility] Last Admin: 04/30/17 21:16 Dose: 40 mg Potassium Phos/Sodium Phos (Phos-Nak Packet -) 1 packet PO TID [facility] Last Admin: 04/30/17 21:15 Dose: 1 packet Sertraline HCl (Zoloft -) 50 mg PO DAILY [facility] Last Admin: 04/30/17 09:27 Dose: 50 mg Sevelamer Carbonate (Renvela -) 800 mg PO TIDCM [facility] Last Admin: 04/30/17 17:14 Dose: 800 mg Simethicone (Mylicon -) 80 mg PO Q4H PRN PRN Reason: GAS Last Admin: 04/30/17 01:36 Dose: 80 mg Warfarin Sodium (Coumadin -) 5 mg PO DAILY@1800 [facility] - Objective Vital Signs: Vital Signs Temperature 97.8 F 04/30/17 17:24 Pulse Rate 87 04/30/17 17:24 Respiratory Rate 20 04/30/17 17:24 Blood Pressure 112/70 04/30/17 17:24 O2 Sat by Pulse Oximetry (%) 97 04/30/17 09:00 Constitutional: Yes: Well Nourished Eyes: Yes: PERRL HENT: Yes: Atraumatic Neck: Yes: Supple Cardiovascular: Yes: Pulse Irregular, S1, S2 Respiratory: Yes: CTA Bilaterally Gastrointestinal: Yes: Normal Bowel Sounds, Soft. No: Tenderness Edema: No Labs: CBC, BMP 04/30/17 06:00 04/30/17 06:00 INR, PTT INR 1.49 (0.82-1.09) H 04/29/17 06:00 Problem List - Problems (1) Demand ischemia Code(s): I24.8 - OTHER FORMS OF ACUTE ISCHEMIC HEART DISEASE (2) Altered mental status Code(s): R41.82 - ALTERED MENTAL STATUS, UNSPECIFIED Qualifiers: Altered mental status type: unspecified Qualified Code(s): R41.82 - Altered mental status, unspecified (3) Anemia associated with acute blood loss Code(s): D62 - ACUTE POSTHEMORRHAGIC ANEMIA (4) Elevated troponin I level Code(s): R74.8 - ABNORMAL LEVELS OF OTHER SERUM ENZYMES (5) Urinary tract infection Code(s): N39.0 - URINARY TRACT INFECTION, SITE NOT SPECIFIED Qualifiers: Urinary tract infection type: site unspecified Hematuria presence: with hematuria Qualified Code(s): N39.0 - Urinary tract infection, site not specified; R31.9 - Hematuria, unspecified; R31.9 - Hematuria, unspecified (6) AV fistula thrombosis Code(s): T82.868A - THROMBOSIS DUE TO VASCULAR PROSTH DEV/GRFT, INIT Qualifiers: Encounter type: initial encounter Qualified Code(s): T82.868A - Thrombosis due to vascular prosthetic devices, implants and grafts, initial encounter (7) Acute on chronic systolic and diastolic heart failure, NYHA class 3 Code(s): I50.43 - ACUTE ON CHRONIC COMBINED SYSTOLIC AND DIASTOLIC HRT FAIL (8) Aortic stenosis Code(s): I35.0 - NONRHEUMATIC AORTIC (VALVE) STENOSIS Qualifiers: Cardiac valve disease etiology: nonrheumatic Qualified Code(s): I35.0 - Nonrheumatic aortic (valve) stenosis (9) Atrial flutter Code(s): I48.92 - UNSPECIFIED ATRIAL FLUTTER Qualifiers: Atrial flutter type: typical Qualified Code(s): I48.3 - Typical atrial flutter (10) CAD (coronary artery disease) Code(s): I25.10 - ATHSCL HEART DISEASE OF [place] CORONARY ARTERY W/O ANG PCTRS Qualifiers: Coronary Disease-Associated Artery/Lesion type: [place] artery [place] vs. transplanted heart: [place] heart Associated angina: without angina Qualified Code(s): I25.10 - Atherosclerotic heart disease of [place] coronary artery without angina pectoris (11) Diabetes Code(s): E11.9 - TYPE 2 DIABETES MELLITUS WITHOUT COMPLICATIONS Qualifiers: (12) ESRD on hemodialysis Code(s): N18.6 - END STAGE RENAL DISEASE; Z99.2 - DEPENDENCE ON RENAL DIALYSIS (13) GERD (gastroesophageal reflux disease) Code(s): K21.9 - GASTRO-ESOPHAGEAL REFLUX DISEASE WITHOUT ESOPHAGITIS Qualifiers: Esophagitis presence: with esophagitis Qualified Code(s): K21.0 - Gastro- esophageal reflux disease with esophagitis (14) GI bleed Code(s): K92.2 - GASTROINTESTINAL HEMORRHAGE, UNSPECIFIED Qualifiers: GI bleed type/associated pathology: melena Qualified Code(s): K92.1 - Melena (15) Generalized weakness Code(s): R53.1 - WEAKNESS (16) HTN (hypertension) Code(s): I10 - ESSENTIAL (PRIMARY) HYPERTENSION Qualifiers: Hypertension type: essential hypertension Qualified Code(s): I10 - Essential (primary) hypertension (17) History of percutaneous coronary intervention Code(s): Z98.89 - OTHER SPECIFIED POSTPROCEDURAL STATES * DO NOT USE * (18) Hyperlipidemia Code(s): E78.5 - HYPERLIPIDEMIA, UNSPECIFIED Qualifiers: Hyperlipidemia type: pure hypercholesterolemia Qualified Code(s): E78.00 - Pure hypercholesterolemia, unspecified (19) Hypothyroidism Code(s): E03.9 - HYPOTHYROIDISM, UNSPECIFIED Qualifiers: Hypothyroidism type: unspecified Qualified Code(s): E03.9 - Hypothyroidism , unspecified (20) Single implantable cardioverter-defibrillator (ICD) in situ Code(s): Z95.810 - PRESENCE OF AUTOMATIC (IMPLANTABLE) CARDIAC DEFIBRILLATOR (21) Systolic dysfunction without heart failure Code(s): I51.9 - HEART DISEASE, UNSPECIFIED Assessment/Plan 1. Altered mental status likely secondary to medications (baclofen) - currently resolved 2. Persistent atrial fibrillation/flutter with therapeutic INR 3. 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 Elevated troponin - demand ischemia 5. CAD, s/p PCI/stent, angina 6. 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 Type 2 DM 8. Hypercholesterolemia 9. Mild aortic valve stenosis and aortic valve regurgitation 10. Anemia and thrombocytopenia 11. Hypothyroidism 12. Hiatal hernia and gastric ulcer on EGD PLAN: 1. Continue Coumadin per INR 2. Continue Metoprolol ER 50 mg and Midodrine 10 mg MWF with HD 3. ICD interrogation as outpatient 4. HD as per renal service - transfusion PRBC as needed. Present therapy Further plans are to follow Len Guevara MD
[2017-05-01 05:43] VITALS: TEMP 97.8
[2017-05-01] MEDS: LEVOTHYROXINE NA 100 MCG TABLET (FP) PO SCH (06:31)
[2017-05-01] MEDS: NAPH,MB-DB/K PH,MBDB POWDER PACKET PO SCH ×2 (06:31→14:58)
--- NOTE | 2017-05-01 08:24 | DS ---
Physical Examination Vital Signs: Vital Signs Temperature 97.8 F 05/01/17 05:00 Pulse Rate 79 05/01/17 05:00 Respiratory Rate 20 05/01/17 05:00 Blood Pressure 110/61 05/01/17 05:00 O2 Sat by Pulse Oximetry (%) 95 04/30/17 21:00 Findings/Remarks: patient feels well no complaints today alert and awake Afebrile Constitutional: Yes: No Distress, Calm Eyes: Yes: Conjunctiva Clear Neck: Yes: Supple Cardiovascular: Yes: Pulse Irregular. No: Regular Rate and Rhythm Respiratory: Yes: Diminished (at bases) Gastrointestinal: Yes: Normal Bowel Sounds, Soft Edema: No Neurological: Yes: Alert Psychiatric: Yes: Alert Discharge Summary Reason For Visit: ALTERED MENTAL STATUS Current Active Problems Altered mental status (Acute) Anemia associated with acute blood loss (Acute) Angiodysplasia of intestinal tract (Acute) Demand ischemia (Acute) Elevated troponin I level (Acute) Family history of GI malignancy (Acute) History of GI bleed (Acute) Left arm swelling (Acute) Peptic ulcer of stomach (Acute) Pre-operative cardiovascular examination, ICD in place (Acute) Urinary tract infection (Acute) Hospital Course: admitted for altered mental status Likely multifactorial--Due to UTI and medications Treated with antibiotics Baclofen also held as well as Ambien Not better Also evaluated by vascular--4 left arm swelling--- fistula working well Also patient is anemic Did not have follow-up endoscopy--as advised last visit 09/28 Repeat EGD and colonoscopy done due to anemia and there are positive stool for occult blood EGD--- no source of bleeding Colonoscopy--- angiodysplasia---. Reports in chart Coumadin was held Restarted today Need to monitor closely Overall stable [facility] back to jail Patient in agreement Had discussed with patient's family for days ago Discussed with registered nurse hh case manager also. Medications reconciled. Discharge time 35 minutes--- in documenting examination as well as coordinating care. Condition: Improved - Instructions Referrals: Dariela Milian MD [Primary Care Provider] - Disposition: [facility] - Home Medications Comprehensive Discharge Medication List: Ambulatory Orders Levothyroxine [Synthroid -] 100 mcg PO DAILY 10/11/12 Pregabalin [Lyrica] 75 mg PO DAILY #0 capsule 02/27/13 Metoprolol Succinate [Toprol XL -] 50 mg PO ASDIR 03/09/15 Acetaminophen [Tylenol .Regular Strength -] 650 mg PO Q6H PRN #0 tablet Multivitamin/Iron/Folic Acid [Daily Vitamin Formula-Iron Tab] 1 each PO DAILY Simethicone [Mylicon -] 80 mg PO Q4H PRN #60 tab.chew 03/23/16 Sertraline HCl [Zoloft -] 50 mg PO DAILY 07/12/16 Sevelamer Carbonate [Renvela -] 800 mg PO TIDCM tab 08/06/16 Warfarin Sodium [Coumadin] 2 mg PO DAILY #30 tablet 08/07/16 Folic Acid/Vit Bcomp,C [Cassie-Mahendra Tablet] 0.8 mg PO DAILY 09/28/16 Ipratropium 0.02% Nebulizer [Atrovent 0.02% Nebulizer -] 1 neb NEB DAILY Midodrine HCl [Proamatine -] 10 mg PO MoWeFr@10 tablet 10/03/16 Naph,Mb-Db/K pH,Mbdb [PHOS-NaK PACKET -] 1 packet PO TID #90 misc 10/03/16 Pantoprazole Sodium [Protonix -] 40 mg PO BID #60 bot 10/03/16 Alprazolam [Xanax] 0.25 mg PO Q8H PRN #30 tablet MDD 2 04/24/17 Ciprofloxacin [Cipro -] 250 mg PO BID #6 tablet 04/24/17
[2017-05-01 08:25] LABS: MCH 29.9 pg (25.7-33.7); MCHC 31.4 g/dl (32.0-36.0); MEAN CELL VOLUME 95.2 fl (80-96); MEAN PLT VOLUME 9.3 fl (7.5-11.1); PLATELET COUNT 144 K/MM3 (134-434); RDW 18.4 % (11.6-15.6); WHITE BLOOD COUNT 7.6 K/mm3 (4.0-10.0)
[2017-05-01 08:49] LABS: ANION GAP 14 (8-16); CALCIUM 8.6 mg/dL (8.5-10.1); CO2 28 mmol/L (21-32); CREATININE 5.9 mg/dL (0.55-1.02); GLUCOSE,RANDOM 143 mg/dL (74-106)
[2017-05-01] MEDS ORDERED: BENZOCAINE 28 GM HEMORRHOIDAL OINTMENT PR PRN (09:07)
[2017-05-01] MEDS ORDERED: PT OWN MED DRAWER 7, Y5N ONE ×2 (09:16→09:30)
[2017-05-01] MEDS: SERTRALINE HCL 50 MG TABLET (FP) PO SCH (09:27)
[2017-05-01] MEDS: PANTOPRAZOLE 40 MG TABLET (FP) PO SCH (09:27)
[2017-05-01] MEDS: MULTIVITAMINS (DAILY MVI) TABLET (FP) PO SCH (09:27)
[2017-05-01] MEDS: VITAMIN B COMP W-C 1 EA TABLET PO SCH (09:27)
[2017-05-01] MEDS: SEVELAMER CARBONATE 800 MG TAB (FP) PO SCH ×3 (09:27→17:23)
[2017-05-01] MEDS: ARTIFICIAL TEARS (POLYVINYL ALCOHOL 1.4%) OPTH DROPS OU SCH (09:27)
--- NOTE | 2017-05-01 10:46 | PN ---
Progress Note, Physician History of Present Illness: Seen during HD. Sensorium remains at baseline, denies rectal bleed or hematochezia. - Current Medication List Current Medications: Active Medications Acetaminophen (Tylenol -) 650 mg PO Q6H PRN PRN Reason: FEVER OR PAIN Last Admin: 04/28/17 21:17 Dose: 650 mg Artificial Tears (Artificial Tears) 1 drop OU BID [facility] Last Admin: 05/01/17 09:27 Dose: 1 drop Bacitracin (Bacitracin -) 1 applic TP DAILY [facility] Last Admin: 04/30/17 09:25 Dose: 1 applic Benzocaine (Americaine Ointment -) 1 applic [place] PRN PRN PRN Reason: PAIN Epoetin Keith (Procrit -) 10,000 unit IVPUSH ONCE ONE Stop: 05/01/17 11:16 Levothyroxine Sodium (Synthroid -) 100 mcg PO DAILY@0700 [facility] Last Admin: 05/01/17 06:31 Dose: 100 mcg Metoprolol Succinate (Toprol Xl -) 50 mg PO SuTuThSa@1000 [facility] Last Admin: 04/30/17 09:26 Dose: 50 mg Midodrine (Proamatine -) 10 mg PO MoWeFr@10 [facility] Last Admin: 04/30/17 10:15 Dose: 10 mg Multivit/Ca Carb/B Cmplx/FA/Prenat (Nephro-Mahendra -) 1 tablet PO DAILY [facility] Last Admin: 05/01/17 09:27 Dose: 1 tablet Multivitamins/Minerals/Vitamin C (Tab-A-Vit -) 1 tab PO DAILY [facility] Last Admin: 05/01/17 09:27 Dose: 1 tab Pantoprazole Sodium (Protonix -) 40 mg PO BID [facility] Last Admin: 05/01/17 09:27 Dose: 40 mg Potassium Phos/Sodium Phos (Phos-Nak Packet -) 1 packet PO TID [facility] Last Admin: 05/01/17 06:31 Dose: 1 packet Sertraline HCl (Zoloft -) 50 mg PO DAILY [facility] Last Admin: 05/01/17 09:27 Dose: Not Given Sevelamer Carbonate (Renvela -) 800 mg PO TIDCM [facility] Last Admin: 05/01/17 09:27 Dose: 800 mg Simethicone (Mylicon -) 80 mg PO Q4H PRN PRN Reason: GAS Last Admin: 04/30/17 01:36 Dose: 80 mg Warfarin Sodium (Coumadin -) 2 mg PO DAILY@1800 [facility] - Objective Vital Signs: Vital Signs Temperature 97.8 F 05/01/17 09:50 Pulse Rate 60 05/01/17 10:25 Respiratory Rate 18 05/01/17 10:25 Blood Pressure 100/57 05/01/17 10:25 O2 Sat by Pulse Oximetry (%) 95 04/30/17 21:00 Constitutional: Yes: No Distress, Calm, Thin Neck: Yes: Supple Cardiovascular: Yes: Pulse Irregular Respiratory: Yes: Regular, Diminished Gastrointestinal: Yes: Normal Bowel Sounds, Soft Edema: No Labs: CBC, BMP 05/01/17 08:05 05/01/17 08:05 INR, PTT INR 1.49 (0.82-1.09) H 04/29/17 06:00 Problem List - Problems (1) Elevated troponin I level Code(s): R74.8 - ABNORMAL LEVELS OF OTHER SERUM ENZYMES (2) Anemia Code(s): D64.9 - ANEMIA, UNSPECIFIED Qualifiers: Chronic kidney disease stage: on chronic dialysis (3) Aortic stenosis Code(s): I35.0 - NONRHEUMATIC AORTIC (VALVE) STENOSIS Qualifiers: Cardiac valve disease etiology: nonrheumatic Qualified Code(s): I35.0 - Nonrheumatic aortic (valve) stenosis (4) Atrial flutter Code(s): I48.92 - UNSPECIFIED ATRIAL FLUTTER Qualifiers: Atrial flutter type: typical Qualified Code(s): I48.3 - Typical atrial flutter (5) CAD (coronary artery disease) Code(s): I25.10 - ATHSCL HEART DISEASE OF [place] CORONARY ARTERY W/O ANG PCTRS Qualifiers: Coronary Disease-Associated Artery/Lesion type: [place] artery [place] vs. transplanted heart: [place] heart Associated angina: without angina Qualified Code(s): I25.10 - Atherosclerotic heart disease of [place] coronary artery without angina pectoris (6) ESRD on hemodialysis Code(s): N18.6 - END STAGE RENAL DISEASE; Z99.2 - DEPENDENCE ON RENAL DIALYSIS (7) History of percutaneous coronary intervention Code(s): Z98.89 - OTHER SPECIFIED POSTPROCEDURAL STATES * DO NOT USE * (8) Hyperlipidemia Code(s): E78.5 - HYPERLIPIDEMIA, UNSPECIFIED Qualifiers: Hyperlipidemia type: pure hypercholesterolemia Qualified Code(s): E78.00 - Pure hypercholesterolemia, unspecified (9) Hypothyroidism Code(s): E03.9 - HYPOTHYROIDISM, UNSPECIFIED Qualifiers: Hypothyroidism type: unspecified Qualified Code(s): E03.9 - Hypothyroidism , unspecified (10) Single implantable cardioverter-defibrillator (ICD) in situ Code(s): Z95.810 - PRESENCE OF AUTOMATIC (IMPLANTABLE) CARDIAC DEFIBRILLATOR (11) Subendocardial ischemia Code(s): I24.8 - OTHER FORMS OF ACUTE ISCHEMIC HEART DISEASE (12) Systolic dysfunction without heart failure Code(s): I51.9 - HEART DISEASE, UNSPECIFIED (13) Angiodysplasia of intestinal tract Code(s): K55.20 - ANGIODYSPLASIA OF [place] WITHOUT HEMORRHAGE Assessment/Plan 1. Altered mental status likely secondary to medications (baclofen) - currently resolved 2. Persistent atrial fibrillation/flutter with therapeutic INR 3. 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 Elevated troponin - demand ischemia 5. CAD, s/p PCI/stent, angina 6. 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 Type 2 DM 8. Hypercholesterolemia 9. Mild aortic valve stenosis and aortic valve regurgitation 10. Anemia and thrombocytopenia 11. Hypothyroidism 12. Hiatal hernia and gastric ulcer on EGD PLAN: 1. Continue Coumadin per INR 2. Continue Metoprolol ER 50 mg and Midodrine 10 mg MWF with HD 3. ICD interrogation as outpatient 4. HD as per renal service - transfusion PRBC as needed. 5. D/c planning
[2017-05-01] MEDS: MIDODRINE HCL 5 MG TABLET PO SCH (11:05)
[2017-05-01] MEDS ORDERED: EPOETIN ALFA 10,000 UNIT/1 ML VIAL IVPUSH ONE (11:15)
[2017-05-01 13:29] VITALS: BP 105/64; PULSE 85
--- NOTE | 2017-05-01 16:03 | PN ---
Progress Note (short form) - Note Progress Note: Renal follow up for ESRD on HD with AMS Pt seen and examined during dialysis pt w/o any acute complaints BP stable, goal UF is 2L AVF with good flow Vital Signs Temperature 97.8 F 05/01/17 09:50 Pulse Rate 85 05/01/17 13:15 Respiratory Rate 18 05/01/17 13:15 Blood Pressure 105/64 05/01/17 13:15 O2 Sat by Pulse Oximetry (%) 95 05/01/17 09:00 Intake & Output 04/28/17 04/29/17 04/30/17 05/01/17 23:59 23:59 23:59 23:59 Intake Total 930 500 800 200 Balance 930 500 800 200 Weight 62.777 kg 61.774 kg 62.369 kg 63.276 kg NAD, at baseline MS tachycardic No Le edema CBC, BMP 05/01/17 08:05 05/01/17 08:05 Current Medications Acetaminophen (Tylenol -) 650 mg PO Q6H PRN PRN Reason: FEVER OR PAIN Last Admin: 04/28/17 21:17 Dose: 650 mg Artificial Tears (Artificial Tears) 1 drop OU BID [facility] Last Admin: 05/01/17 09:27 Dose: 1 drop Bacitracin (Bacitracin -) 1 applic TP DAILY [facility] Last Admin: 04/30/17 09:25 Dose: 1 applic Benzocaine (Americaine Ointment -) 1 applic [place] PRN PRN PRN Reason: PAIN Levothyroxine Sodium (Synthroid -) 100 mcg PO DAILY@0700 [facility] Last Admin: 05/01/17 06:31 Dose: 100 mcg Metoprolol Succinate (Toprol Xl -) 50 mg PO SuTuThSa@1000 [facility] Last Admin: 04/30/17 09:26 Dose: 50 mg Midodrine (Proamatine -) 10 mg PO MoWeFr@10 [facility] Last Admin: 05/01/17 11:05 Dose: 10 mg Multivit/Ca Carb/B Cmplx/FA/Prenat (Nephro-Mahendra -) 1 tablet PO DAILY [facility] Last Admin: 05/01/17 09:27 Dose: 1 tablet Multivitamins/Minerals/Vitamin C (Tab-A-Vit -) 1 tab PO DAILY [facility] Last Admin: 05/01/17 09:27 Dose: 1 tab Pantoprazole Sodium (Protonix -) 40 mg PO BID [facility] Last Admin: 05/01/17 09:27 Dose: 40 mg Potassium Phos/Sodium Phos (Phos-Nak Packet -) 1 packet PO TID [facility] Last Admin: 05/01/17 14:58 Dose: Not Given Sertraline HCl (Zoloft -) 50 mg PO DAILY [facility] Last Admin: 05/01/17 09:27 Dose: Not Given Sevelamer Carbonate (Renvela -) 800 mg PO TIDCM [facility] Last Admin: 05/01/17 13:08 Dose: Not Given Simethicone (Mylicon -) 80 mg PO Q4H PRN PRN Reason: GAS Last Admin: 04/30/17 01:36 Dose: 80 mg Warfarin Sodium (Coumadin -) 2 mg PO DAILY@1800 [facility] 89 year old woman with PMhx of ESRD on HD, CAD s/p stent, CHF, Hypertension, Hyperlipidemia, Skin Ca, Hypothyrodism who presented from HD unit with AMS. #AMS likely secondary to medications (baclofen) but r/o UTI now resolved avoid baclofen use in the future #ESRD on HD tolerating dialysis well UF as tolerated #Chronic Anemia s/p EGD/Colonoscopy angiodisplasia in transverse colon H/H stable will continue HILARIO with HD discharge planning as per primary Thank you Yahir Cortez DO
[2017-05-01] MEDS: BACITRACIN 15 GM TUBE TOPICAL OINTMENT TP SCH (17:07)
[2017-05-01] MEDS ORDERED: WARFARIN NA 2 MG TABLET (UD) PO SCH (18:00)
[2017-05-01] MEDS ORDERED: WARFARIN NA 5 MG TABLET (UD) PO SCH (18:00)
--- NOTE | 2017-05-02 17:48 | PATH ---
Surgical Pathology Report Patient Name: KATARINA CURRAN Med. Rec. #: [id number] /Age/Gender: 1925 (Age: 89) / F Account: [id number] Location: [facility] MED/SURG Taken: 04/28/2017 Received: 05/01/2017 Reported: 05/02/2017 Physicians: Kendrick Mishra M.D. Specimen(s) Received A: BX GASTRIC ANTRUM B: BX RECTAL POLYP Clinical History Preoperative diagnosis: Anemia, occult bleeding Postoperative diagnosis: Hiatal hernia, gastritis, diverticulosis, colon polyps Final Diagnosis A. STOMACH, ANTRUM, BIOPSY: GASTRIC ANTRAL MUCOSA WITH MILD CHRONIC GASTRITIS. DIFF-QUIK SPECIAL STAIN IS NEGATIVE FOR HELICOBACTER-LIKE ORGANISMS. B. RECTUM, POLYP, BIOPSY: TUBULAR ADENOMA. Electronically Signed Veronica Wagner M.D. Gross Description A. Received in formalin, labeled "biopsy gastric antrum" is a rodriguez, irregular portion of soft tissue measuring 0.3 cm. in greatest dimension. The specimen is submitted in toto in one cassette. B. Received in formalin, labeled "biopsy rectal polyp" is a rodriguez, irregular portion of soft tissue measuring 0.2 cm. in greatest dimension. The specimen is submitted in toto in one cassette. 05/01/201705/01/2017
== END 2017-05-01 18:02 | DRG 91 ==
LOC: JER 14:35 → JERBED 18:35 → J7W 21:34
PROVIDERS: ADMIT Internal Medicine; ATTEND Internal Medicine
PROC: 0DBM8ZZ Excision of Descending Colon, Via Natural or Artificial Opening Endoscopic (ICD-10-PCS; 2017-04-28)
PROC: 0DBP8ZZ Excision of Rectum, Via Natural or Artificial Opening Endoscopic (ICD-10-PCS; 2017-04-28)
PROC: 30233L1 Transfusion of Nonautologous Fresh Plasma into Peripheral Vein, Percutaneous Approach (ICD-10-PCS; 2017-04-28)
PROC: 30233K1 Transfusion of Nonautologous Frozen Plasma into Peripheral Vein, Percutaneous Approach (ICD-10-PCS; 2017-04-28)
PROC: 0DD68ZX Extraction of Stomach, Via Natural or Artificial Opening Endoscopic, Diagnostic (ICD-10-PCS; principal; 2017-04-28 13:30)
PROC: 5A1D90Z Performance of Urinary Filtration, Continuous, Greater than 18 hours Per Day (ICD-10-PCS; 2017-05-01)
DX: G92 Toxic encephalopathy (principal); N18.6 End stage renal disease; N39.0 Urinary tract infection, site not specified; I13.2 Hypertensive heart and chronic kidney disease with heart failure and with stage 5 chronic kidney disease, or end stage renal disease; I48.92 Unspecified atrial flutter; I48.1 Persistent atrial fibrillation; E11.22 Type 2 diabetes mellitus with diabetic chronic kidney disease; I50.9 Heart failure, unspecified; D64.9 Anemia, unspecified; E03.9 Hypothyroidism, unspecified; E78.5 Hyperlipidemia, unspecified; Z98.61 Coronary angioplasty status; K21.9 Gastro-esophageal reflux disease without esophagitis; G62.9 Polyneuropathy, unspecified; E87.70 Fluid overload, unspecified; R74.8 Abnormal levels of other serum enzymes; I35.0 Nonrheumatic aortic (valve) stenosis; Z95.810 Presence of automatic (implantable) cardiac defibrillator; I25.119 Atherosclerotic heart disease of native coronary artery with unspecified angina pectoris; D69.6 Thrombocytopenia, unspecified; K44.9 Diaphragmatic hernia without obstruction or gangrene; K25.9 Gastric ulcer, unspecified as acute or chronic, without hemorrhage or perforation; R41.82 Altered mental status, unspecified; K29.50 Unspecified chronic gastritis without bleeding; K62.1 Rectal polyp; K57.30 Diverticulosis of large intestine without perforation or abscess without bleeding; K55.20 Angiodysplasia of colon without hemorrhage; K64.8 Other hemorrhoids; K63.5 Polyp of colon; T42.8X5A Adverse effect of antiparkinsonism drugs and other central muscle-tone depressants, initial encounter
CPT/HCPCS: 36415; 36430; 70450-TC; 71010-TC; 80048; 80053; 81003; 81015; 82550; 82565; 83735; 84100; 84443; 84484; 84520; 85025; 85027; 85610; 86704; 86706; 86708; 86803; 86850; 86900; 86901; 87040; 87086; 87340; 88305-TC; 93005; 93010; 93971; 97116-GP; 97161-GP; 99283-25; J0885; J1644; P9017

== ENCOUNTER 2017-05-12 11:07 | Inpatient (IN) | payer OTHER, BC ==
--- NOTE | 2017-05-12 11:40 | PDOC ---
Attending Attestation - Resident Resident Name: Eunice Muñoz - ED Attending Attestation I have performed the following: I have examined & evaluated the patient, The case was reviewed & discussed with the resident, I agree w/resident's findings & plan, Exceptions are as noted - HPI HPI: 05/12/17 11:40 89y F hx of ESRD (MWF) presents with L arm swelling x 1 week, recent hospitalization for AMS thought to be secondary to baclofen use, worsening L arm swelling and pain since discharge, is also noted to be red/warm and bruising. No trauma. no numbness/tingling/coolness. +swelling in the distal arm on exam, +thrill palapble slightly deminished radial pulse on L arm +ecchymosis and diffuse tenderness on the proximal arm no signs vascular compromise will ck labs work will ck US to eval vascular access, r/o dvt renal: Dr. Beck, Vascular: Ghassan - Physicial Exam PE: 05/12/17 20:23 see above - Medical Decision Making 05/12/17 20:20 US neg access seem to be functioning ok no dvt will tx with abx for celluitis will get dialysis tomorrow dw dr. beck - agree with managment and will have pt see dr. garcia for input as inpatient Heart Score/ECG Review - ECG Impressions Comment:: 05/12/17 14:55 Twelve-lead EKG was performed and reviewed by me. Irregularly irregular Rate of 67 Flat T waves in the lateral leads Impression atrial fibrillation
[2017-05-12] MEDS ORDERED: traMADol HCL 50 MG TABLET PO ONE (12:14)
--- NOTE | 2017-05-12 12:16 | PDOC ---
History of Present Illness - General Chief Complaint: Edema Stated Complaint: SWELLING Time Seen by Provider: 05/12/17 11:22 History Source: Patient Exam Limitations: No Limitations - History of Present Illness Initial Comments: This is an 89 YOF with h/o ESRD on HD MWF, persistent A-fib/A-flutter, AICD placement, CAD (cardiac stent placement x2), CHF who was instructed by her HD clinic to come to the ED for worsening RUE swelling , pain, redness, and heaviness for the past week. They HD clinic did not feel comfortable doing her normal HD session this morning because of the arm pain/ swelling. Her pain is 10/10 and worst in the left axilla and shoulder. She denies any additional symptoms (no chest pain, palpitations, SOB, headache, numbness, tingling, weakness, Past History - Past Medical History Allergies/Adverse Reactions: Allergies Allergy/AdvReac Type Severity Reaction Status Date / Time codeine [Codeine] Allergy Mild Itching Verified 05/12/17 11:41 oxycodone HCl [From Percocet] Allergy Verified 05/12/17 11:41 Home Medications: Ambulatory Orders Levothyroxine [Synthroid -] 100 mcg PO DAILY 10/11/12 Metoprolol Succinate [Toprol XL -] 50 mg PO ASDIR 03/09/15 Acetaminophen [Tylenol .Regular Strength -] 650 mg PO Q6H PRN #0 tablet Multivitamin/Iron/Folic Acid [Daily Vitamin Formula-Iron Tab] 1 each PO DAILY Simethicone [Mylicon -] 80 mg PO Q4H PRN #60 tab.chew 03/23/16 Sertraline HCl [Zoloft -] 50 mg PO DAILY 07/12/16 Sevelamer Carbonate [Renvela -] 800 mg PO TIDCM tab 08/06/16 Warfarin Sodium [Coumadin] 2 mg PO DAILY #30 tablet 08/07/16 Folic Acid/Vit B Complex and C [Cassie-Mahendra Tablet] 0.8 mg PO DAILY 09/28/16 Ipratropium 0.02% Nebulizer [Atrovent 0.02% Nebulizer -] 1 neb NEB DAILY Warfarin Na [Coumadin -] 2 mg PO DAILY@1800 tablet 05/01/17 Midodrine HCl [Proamatine -] 10 mg PO ONCE 05/12/17 Omeprazole 20 mg PO DAILY 05/12/17 Anemia: No Asthma: No Cancer: Yes (skin) Cardiac Disorders: Yes (STENT, DIFIBRILLATOR) CVA: Yes COPD: No CHF: Yes Dementia: Yes Diabetes: Yes Dialysis: Yes (m,w,f) GI Disorders: Yes (REFLUX) Disorders: Yes (esrd x 5y, low BP @ HD) HTN: Yes Hypercholesterolemia: Yes Liver Disease: No Seizures: No Thyroid Disease: Yes (HYPOTHYROID) - Surgical History Abdominal Surgery: Yes Appendectomy: No Cardiac Surgery: Yes (pacemaker-stent) Cholecystectomy: No Lung Surgery: No Neurologic Surgery: No Orthopedic Surgery: No - Immunization History Immunization Up to Date: Yes - Suicide/Smoking/Psychosocial Hx Smoking Status: No Smoking History: Never smoked Years of Tobacco Use: 50 Have you smoked in the past 12 months: No Number of Cigarettes Smoked Daily: 0 If you are a former smoker, when did you quit?: 1999 Information on smoking cessation initiated: No Hx Alcohol Use: No Drug/Substance Use Hx: No Substance Use Type: None Hx Substance Use Treatment: No *Physical Exam - Vital Signs Last Vital Signs Temp Pulse Resp BP Pulse Ox 98.2 F 100 H 22 120/50 95 05/12/17 11:10 05/12/17 11:10 05/12/17 11:10 05/12/17 11:10 05/12/17 11:10 ED Treatment Course - LABORATORY CBC & Chemistry Diagram: 05/12/17 11:53 05/12/17 11:53 - RADIOLOGY Radiology Studies Ordered: Category Date Time Status CHEST PA & LAT [RAD] Stat Radiology 05/12/17 11:30 Ordered DUPLEX VASCUL US-1 ARM [US] Stat Ultrasound 05/12/17 11:45 Ordered Medical Decision Making - Medical Decision Making 89 YOF with h/o ESRD on HD MWF p/w LUE swelling, same arm as mulltiple AVF/ graft. On exam VS wnl and patient in minimal distress initially but mild distress when LUE is ranged at shoulder. AVF/graft in left AC with good bruit and thrill, early ecchymoses forming medial upper arm, 2+ pitting edema. DDX IBNLT AVF or graft thrombosis or other obstruction, non-access DVT, cellulitis/erysepilas, *DC/Admit/Observation/Transfer Diagnosis at time of Disposition: End stage renal disease on dialysis, Left arm swelling - Discharge Dispostion Condition at time of disposition: Guarded Admit: Yes - Referrals Referrals: Dariela Milian MD [Primary Care Provider] - - Patient Instructions - Post Discharge Activity
[2017-05-12] MEDS ORDERED: traMADol HCL 50 MG TABLET ONE ×2 (12:28→21:29)
[2017-05-12 12:50] LABS: BASO % 0.3 % (0-2.0); EOS % 0.1 % (0-4.5); HEMATOCRIT 33.2 % (32.4-45.2); HEMOGLOBIN 10.2 GM/dL (10.7-15.3); LYMPH % 4.4 % (8-40); MCH 28.9 pg (25.7-33.7); MCHC 30.7 g/dl (32.0-36.0); MEAN CELL VOLUME 94.1 fl (80-96); MEAN PLT VOLUME 9.1 fl (7.5-11.1); MONO % 8.6 % (3.8-10.2); NEUT % 86.6 % (42.8-82.8); PLATELET COUNT 152 K/MM3 (134-434); RBC 3.53 M/mm3 (3.60-5.2); RDW 18.9 % (11.6-15.6); WHITE BLOOD COUNT 6.7 K/mm3 (4.0-10.0)
[2017-05-12 13:04] LABS: INR 2.18 (0.82-1.09); PROTHROMBIN TIME (PATIENT) 24.6 SEC (9.98-11.88)
[2017-05-12 13:15] LABS: ALBUMIN 2.6 g/dl (3.4-5.0); ALK PHOS 303 U/L (45-117); ANION GAP 9 (8-16); BILIRUBIN,TOTAL 0.9 mg/dL (0.2-1.0); BLOOD UREA NITROGEN 75 mg/dL (7-18); CHLORIDE 100 mmol/L (98-107); CO2 24 mmol/L (21-32); CREATININE 5.4 mg/dL (0.55-1.02); MAGNESIUM 2.8 mg/dL (1.8-2.4); POTASSIUM 5.1 mmol/L (3.5-5.1); SGOT/AST 10 U/L (15-37); SGPT/ALT 15 U/L (12-78); SODIUM 133 mmol/L (136-145)
[2017-05-12 13:30] LABS: N-TERMINAL BNP 125932.55 pg/ml (5-450)
[2017-05-12 13:51] LABS: GLUCOSE,RANDOM 328 mg/dL (74-106)
[2017-05-12] MEDS ORDERED: CEFTRIAXONE 1 GM in DEXTROSE 5%-WATER - 50 ML IVPB ONE (19:09)
[2017-05-12] MEDS ORDERED: VANCOMYCIN 1,000 MG in DEXTROSE 5%-WATER - 250 ML IVPB ONE (20:01)
[2017-05-12] MEDS ORDERED: traMADol HCL 50 MG TABLET PO PRN (20:02)
[2017-05-12] MEDS ORDERED: PIPERACILLIN/TAZOB 2.25 GM/50 ML PREMIX BAG IVPB ONE (20:03)
[2017-05-12] MEDS ORDERED: SIMETHICONE 80 MG TAB.CHEW (FP) PO PRN (20:11)
[2017-05-12] MEDS ORDERED: MIDODRINE HCL 5 MG TABLET PO SCH (20:15)
--- NOTE | 2017-05-12 20:57 | HP ---
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 They were unable to perform dialyisis today due to the swelling. Pt also reports pain to left arm with severely limited mobility. Pt reports that upon dc from here on her arm was swollen but the swelling went down at her SNF ([facility] [place]) but then started to recur and was the worst today. ER course was notable for: (1) WBC 6.7 (2) venous doppler negative for clot (3) arterial doppler + patent left upper extremity AV fistula Recent Travel: pt denies PAST MEDICAL HISTORY: ESRD on dialysis MWF CAD dCHF afib/flutter HTN HLD hypothyroidism peripheral neuropathy GERD, PUD OA DM PAST SURGICAL HISTORY: AICD stent x 2 L arm AV dialysis graft (now thrombosed) L arm AV fistula patent cholecystectom Social History: Smoking: quit many years ago Alcohol: pt denies Drugs: pt denies Family History: mother , h/o DM, and cancer father stomach CA sister , BrCA brother with parkinson's 5 children without medical problems Allergies codeine [Codeine] Allergy (Mild, Verified 05/12/17 11:41) Itching oxycodone HCl [From Percocet] Allergy (Verified 05/12/17 11:41) PER RACHEL ABARCA, PT GETS "MUSCLE SPASM" FROM PERCOCET HOME MEDICATIONS: 3 Medication Instructions Recorded Levothyroxine [Synthroid -] 100 mcg PO DAILY 10/11/12 Metoprolol Succinate [Toprol XL -] 50 mg PO ASDIR 03/09/15 Acetaminophen [Tylenol .Regular 650 mg PO Q6H PRN #0 tablet 01/18/16 Strength -] Multivitamin/Iron/Folic Acid 1 each PO DAILY 03/20/16 [Daily Vitamin Formula-Iron Tab] Simethicone [Mylicon -] 80 mg PO Q4H PRN #60 tab.chew 03/23/16 Sertraline HCl [Zoloft -] 50 mg PO DAILY 07/12/16 Sevelamer Carbonate [Renvela -] 800 mg PO TIDCM tab 08/06/16 Warfarin Sodium [Coumadin] 2 mg PO DAILY #30 tablet 08/07/16 Folic Acid/Vit B Complex and C 0.8 mg PO DAILY 09/28/16 [Cassie-Mahendra Tablet] Ipratropium 0.02% Nebulizer 1 neb NEB DAILY 09/28/16 [Atrovent 0.02% Nebulizer -] Warfarin Na [Coumadin -] 2 mg PO DAILY@1800 tablet 05/01/17 Midodrine HCl [Proamatine -] 10 mg PO ONCE 05/12/17 Omeprazole 20 mg PO DAILY 05/12/17 REVIEW OF SYSTEMS CONSTITUTIONAL: Absent: fever, chills, diaphoresis, generalized weakness, malaise, loss of appetite, weight change HEENT: Absent: rhinorrhea, nasal congestion, throat pain, throat swelling, difficulty swallowing, mouth swelling, ear pain, eye pain, visual changes CARDIOVASCULAR: Absent: chest pain, syncope, palpitations, irregular heart rate, lightheadedness , peripheral edema RESPIRATORY: Absent: cough, shortness of breath, dyspnea with exertion, orthopnea, wheezing, stridor, hemoptysis GASTROINTESTINAL: Absent: abdominal pain, abdominal distension, nausea, vomiting, diarrhea, constipation, melena, hematochezia GENITOURINARY: Absent: dysuria, frequency, urgency, hesitancy, hematuria, flank pain, genital pain MUSCULOSKELETAL: Present: Left arm pain and swelling Absent: myalgia, arthralgia, joint swelling, back pain, neck pain SKIN: Absent: rash, itching, pallor HEMATOLOGIC/IMMUNOLOGIC: Absent: easy bleeding, easy bruising, lymphadenopathy, frequent infections ENDOCRINE: Absent: unexplained weight gain, unexplained weight loss, heat intolerance, cold intolerance NEUROLOGIC: Absent: headache, focal weakness or paresthesias, dizziness, unsteady gait, seizure, mental status changes, bladder or bowel incontinence PSYCHIATRIC: Absent: anxiety, depression, suicidal or homicidal ideation, hallucinations. PHYSICAL EXAMINATION Vital Signs - 24 hr 3 05/12/17 11:10 Temperature 98.2 F Pulse Rate 100 H Respiratory 22 Rate Blood Pressure 120/50 O2 Sat by Pulse 95 Oximetry (%) GENERAL: Awake, alert, and fully oriented, in no acute distress. HEAD: Normal with no signs of trauma. EYES: Pupils equal, round and reactive to light, extraocular movements intact, sclera anicteric, conjunctiva clear. No lid lag. EARS, NOSE, THROAT: Ears normal, nares patent, oropharynx clear without exudates. Moist mucous membranes. NECK: Normal range of motion, supple without lymphadenopathy, JVD, or masses. LUNGS: Breath sounds clear to auscultation bilaterally, diminished left base. No wheezes, and no crackles. No accessory muscle use. HEART: Regular rate and rhythm, normal S1 and S2 without murmur, rub or gallop. ABDOMEN: Soft, nontender, not distended, normoactive bowel sounds, no guarding, no rebound, no masses. No hepatomegaly or splenomegaly. MUSCULOSKELETAL: Normal range of motion at all joints. No bony deformities or tenderness. No CVA tenderness. UPPER EXTREMITIES: 2+ pulses, warm, well-perfused. No cyanosis. No clubbing. No peripheral edema right. Left arm noted with 2+ pitting edema, + ecchymosis and erythema around dialysis access. + bruit and thrill distal aspect upper arm. LOWER EXTREMITIES: 2+ pulses, warm, well-perfused. No calf tenderness. No peripheral edema. NEUROLOGICAL: Cranial nerves II-XII intact. Normal speech. Normal gait. PSYCHIATRIC: Cooperative. Good eye contact. Appropriate mood and affect. SKIN: Warm, dry, normal turgor, no rashes or lesions noted, normal capillary refill. Laboratory Results - last 24 hr 3 05/12/17 05/12/17 05/12/17 11:53 11:53 11:53 WBC 6.7 RBC 3.53 L Hgb 10.2 L Hct 33.2 MCV 94.1 MCH 28.9 MCHC 30.7 L RDW 18.9 H Plt Count 152 MPV 9.1 Neutrophils % 86.6 H Lymphocytes % 4.4 L D Monocytes % 8.6 Eosinophils % 0.1 Basophils % 0.3 PT with INR 24.60 H INR 2.18 H D Sodium 133 L Potassium 5.1 D Chloride 100 Carbon Dioxide 24 Anion Gap 9 BUN 75 H D Creatinine 5.4 H Creat Clearance w eGFR 7.46 Random Glucose 328 H* D Calcium 9.0 Phosphorus 4.0 D Magnesium 2.8 H D Total Bilirubin 0.9 D AST 10 L D ALT 15 Alkaline Phosphatase 303 H D B-Natriuretic Peptide 175625.55 H Total Protein 7.0 Albumin 2.6 L Blood Type Antibody Screen ASSESSMENT/PLAN: 89yF with PMH ESRD on HD MWF, CAD s/p stent x 2, dCHF, afib/flutter, HTN, HLD, Hypothyroidism, peripheral neuropathy, GERD, PUD, OA, DM presented to the ED with swelling to left arm. Left arm swelling, Cellulitis - will treat for cellulitis given risk factors: Vanco 1g and zosyn 2.25gm - vascular consult, TC placed to Dr. Munguia service, LM - elevate limb ESRD - renal consult, Dr. Cortez to arrange for dialysis in am CAD/CHF/afib/flutter/HTN - cont home meds. Can be hypotensive during dialysis, hold toprol on dialysis day - cont warfarin, INR 2.18 hypothyroid - cont synthroid peripheral neuropathy - cont home lyrica 75mg daily (confirmed dose with [facility]) GERD - home omeprazole 40mg changed to formulary protonix DM - not on home antiDM meds - BGM with novolog sliding scale ordered. DVT PPX - on coumadin, therapeutic, cont same FEN - no IVF, pt on HD - BMP in am prior to HD - renal diet Dispo: Pt currently requires inpatient management of her emergent condition. Visit type - Emergency Visit Emergency Visit: Yes ED Registration Date: 05/12/17 Care time: The patient presented to the Emergency Department on the above date and was hospitalized for further evaluation of their emergent condition. - New Patient This patient is new to me today: Yes Date on this admission: 05/12/17 - Critical Care Critical Care patient: No
[2017-05-12] MEDS ORDERED: PIPERACILLIN/TAZOBACTAM 2.25 GM VIAL IVPB ONE (21:29)
[2017-05-12] MEDS ORDERED: VANCOMYCIN 1 GRAM (PRE-DOCKED) 1,000 MG/250 ML BAG IVPB ONE (21:30)
[2017-05-12] MEDS ORDERED: WARFARIN NA 2 MG TABLET (UD) PO ONE (23:15)
[2017-05-12] MEDS: INSULIN SLIDING SCALE (NOVOLOG) 1 VIAL SQ SCH (23:47)
[2017-05-13 04:56] VITALS: BMI 28.5
[2017-05-13] MEDS: INSULIN SLIDING SCALE (NOVOLOG) 1 VIAL SQ SCH ×4 (06:38→22:30)
[2017-05-13 07:54] LABS: BASO % 1.1 % (0-2.0); EOS % 0.2 % (0-4.5); HEMATOCRIT 33.5 % (32.4-45.2); HEMOGLOBIN 10.1 GM/dL (10.7-15.3); MCH 28.1 pg (25.7-33.7); MCHC 30.3 g/dl (32.0-36.0); MEAN CELL VOLUME 92.7 fl (80-96); MEAN PLT VOLUME 9.2 fl (7.5-11.1); NEUT % 83.7 % (42.8-82.8); PLATELET COUNT 177 K/MM3 (134-434); RBC 3.61 M/mm3 (3.60-5.2); RDW 19.1 % (11.6-15.6); WHITE BLOOD COUNT 6.8 K/mm3 (4.0-10.0)
[2017-05-13] MEDS ORDERED: SEVELAMER CARBONATE 800 MG TAB (FP) PO SCH (08:00)
[2017-05-13 08:13] LABS: MAGNESIUM 2.7 mg/dL (1.8-2.4); PHOSPHOROUS 5.2 mg/dL (2.5-4.9)
[2017-05-13 09:08] LABS: INR 2.4 (0.82-1.09); PROTHROMBIN TIME (PATIENT) 27.1 SEC (9.98-11.88)
[2017-05-13] MEDS: SEVELAMER CARBONATE 800 MG TAB (FP) PO SCH ×3 (09:44→16:37)
[2017-05-13] MEDS ORDERED: MIDODRINE HCL 5 MG TABLET PO SCH (09:52)
[2017-05-13] MEDS ORDERED: MIDODRINE HCL 5 MG TABLET PO ONE (09:56)
[2017-05-13] MEDS ORDERED: MULTIVITAMIN PO SCH (10:00)
[2017-05-13] MEDS ORDERED: [UNRECOGNIZED DRUG - OTHER] PO SCH (10:00)
[2017-05-13] MEDS ORDERED: PANTOPRAZOLE 20 MG TABLET (FP) PO SCH (10:00)
[2017-05-13] MEDS ORDERED: FOLIC ACID PO SCH (10:00)
[2017-05-13] MEDS: LIDOCAINE 2.5%/PRILOCAINE 2.5% (5 Gram/TUBE) TP ONE ×2 (10:00→11:39)
[2017-05-13] MEDS ORDERED: PATIENT'S OWN MEDICATION (NON-FORMULARY) (Omeprazole 20 MG) PO SCH (10:00)
[2017-05-13] MEDS ORDERED: IRON PO SCH (10:00)
[2017-05-13] MEDS ORDERED: LEVOTHYROXINE NA 100 MCG TABLET (FP) PO SCH (10:00)
[2017-05-13] MEDS ORDERED: POLYETHYLENE GLYCOL 3350 119 GM BTL PO SCH (10:00)
[2017-05-13] MEDS: LEVOTHYROXINE NA 100 MCG TABLET (FP) PO SCH (10:07)
--- NOTE | 2017-05-13 10:42 | CON.NEP ---
Consult Consult Specialty:: Nephrology Referred by:: Dr. Oropeza Reason for Consultation:: ESRD on HD, Arm swelling - History of Present Illness Chief Complaint: Arm pain and swelling History of Present Illness: This is a 89 year old woman with PMhx of ESRD on HD, CAD s/p PCI and stenting, CHF, Hypertension, Skin Ca, Hypothyrodism who presented with left arm/access arm swelling and pain. Pt was noted to have some arm swelling on her last admission but doppler was negative at that time. Pt denies any fever, chills. Cannot move arm much because of pain. Last dialysis was Monday. No SOB, chest pain, Abd pain, N/V/D. Home Medications Medication Instructions Recorded Levothyroxine [Synthroid -] 100 mcg PO DAILY 10/11/12 Metoprolol Succinate [Toprol XL -] 50 mg PO ASDIR 03/09/15 Acetaminophen [Tylenol .Regular 650 mg PO Q6H PRN #0 tablet 01/18/16 Strength -] Multivitamin/Iron/Folic Acid 1 each PO DAILY 03/20/16 [Daily Vitamin Formula-Iron Tab] Simethicone [Mylicon -] 80 mg PO Q4H PRN #60 tab.chew 03/23/16 Sertraline HCl [Zoloft -] 50 mg PO DAILY 07/12/16 Sevelamer Carbonate [Renvela -] 800 mg PO TIDCM tab 08/06/16 Warfarin Sodium [Coumadin] 2 mg PO DAILY #30 tablet 08/07/16 Folic Acid/Vit B Complex and C 0.8 mg PO DAILY 09/28/16 [Cassie-Mahendra Tablet] Ipratropium 0.02% Nebulizer 1 neb NEB TID 09/28/16 [Atrovent 0.02% Nebulizer -] Warfarin Na [Coumadin -] 2 mg PO DAILY@1800 tablet 05/01/17 Midodrine HCl [Proamatine -] 10 mg PO ONCE 05/12/17 Omeprazole 20 mg PO DAILY 05/12/17 Hydrocortisone 1% Cream [Hytone 1% 1 applic TP BID 05/13/17 Cream -] Polyethylene Glycol 3350 [Miralax 17 gm PO DAILY PRN 05/13/17 (For Daily Use) -] Pregabalin [Lyrica] 75 mg PO DAILY 05/13/17 Zolpidem Tartrate [Ambien] 5 mg PO HS 05/13/17 - History Source History Provided By: Patient Limitations to Obtaining History: No Limitations - 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 Cardio/Vascular: Yes: AFIB (right sided ICD), CAD, CHF, HTN, Hyperlipdemia, Other (S/P PCI/stent, chronic diastolic CHF, right sided ICD) Gastrointestinal: Yes: Constipation, Gastritis, GERD, GI Bleed, Hiatal Hernia, Peptic Ulcer Disease Renal/: Yes: Renal Failure, Hemodialysis Musculoskeletal: Yes: Osteoarthritis Endocrine: Yes: Diabetes Mellitus, Hypothyroidism - Past Surgical History Past Surgical History: Yes: AICD (right sided), AV Fistula/Graft (), Cholecystectomy (lap choly), Stent (1999), Upper Endoscopy - Alcohol/Substance Use Hx Alcohol Use: No History of Substance Use: reports: None - Smoking History Smoking history: Never smoked Have you smoked in the past 12 months: No Aproximately how many cigarettes per day: 0 If you are a former smoker, when did you quit?: 1999 - Social History Usual Living Arrangement: Correction ADL: Support Services 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 History of Recent Travel: No Home Medications - Allergies Allergies/Adverse Reactions: Allergies Allergy/AdvReac Type Severity Reaction Status Date / Time codeine [Codeine] Allergy Mild Itching Verified 05/12/17 11:41 oxycodone HCl [From Percocet] Allergy Verified 05/12/17 11:41 - Home Medications Home Medications: Ambulatory Orders Levothyroxine [Synthroid -] 100 mcg PO DAILY 10/11/12 Metoprolol Succinate [Toprol XL -] 50 mg PO ASDIR 03/09/15 Acetaminophen [Tylenol .Regular Strength -] 650 mg PO Q6H PRN #0 tablet Multivitamin/Iron/Folic Acid [Daily Vitamin Formula-Iron Tab] 1 each PO DAILY Simethicone [Mylicon -] 80 mg PO Q4H PRN #60 tab.chew 03/23/16 Sertraline HCl [Zoloft -] 50 mg PO DAILY 07/12/16 Sevelamer Carbonate [Renvela -] 800 mg PO TIDCM tab 08/06/16 Warfarin Sodium [Coumadin] 2 mg PO DAILY #30 tablet 08/07/16 Folic Acid/Vit B Complex and C [Cassie-Mahendra Tablet] 0.8 mg PO DAILY 09/28/16 Ipratropium 0.02% Nebulizer [Atrovent 0.02% Nebulizer -] 1 neb NEB TID 09/28/16 Warfarin Na [Coumadin -] 2 mg PO DAILY@1800 tablet 05/01/17 Midodrine HCl [Proamatine -] 10 mg PO ONCE 05/12/17 Omeprazole 20 mg PO DAILY 05/12/17 Hydrocortisone 1% Cream [Hytone 1% Cream -] 1 applic TP BID 05/13/17 Polyethylene Glycol 3350 [Miralax (For Daily Use) -] 17 gm PO DAILY PRN Pregabalin [Lyrica] 75 mg PO DAILY 05/13/17 Zolpidem Tartrate [Ambien] 5 mg PO HS 05/13/17 Family Disease History - Family Disease History Family Disease History: Diabetes: Mother (nonHodgkins lymphoma), CA: Father ( of gastric cancer), Mother, Sister (brast cancer), Other: Brother ( Parkinsons) Review of Systems - Review of Systems Constitutional: denies: Chills, Fever, Lethargy, Loss of Appetite Eyes: reports: No Symptoms HENT: reports: No Symptoms Neck: reports: No Symptoms Cardiovascular: denies: Chest Pain, Edema, Palpitations, Shortness of Breath Respiratory: denies: Cough, Orthopnea, SOB, SOB on Exertion Gastrointestinal: denies: Abdominal Pain, Nausea, Vomiting Genitourinary: denies: Burning, Dysuria, Flank Pain Neurological: reports: No Symptoms Nephrology Consult - Height Height: 5 ft - Weight Weight: 66.315 kg - BMI Body Mass Index (BMI): 28.5 - Lab Results CBC,BMP: CBC, BMP 05/13/17 07:00 05/12/17 11:53 Anion Gap: Anion Gap Anion Gap 9 (8-16) 05/12/17 11:53 - Imaging Ultrasound: Report Reviewed - Physical Examination Vital Signs: Vital Signs Temperature 97.4 F L 05/13/17 06:30 Pulse Rate 93 H 05/13/17 07:30 Respiratory Rate 18 05/13/17 07:30 Blood Pressure 108/61 05/13/17 07:30 O2 Sat by Pulse Oximetry (%) 97 05/12/17 23:45 Constitutional: Yes: No Distress, Calm Eyes: Yes: Conjunctiva Clear HENT: Yes: Atraumatic Neck: Yes: Supple Cardiovascular: Yes: Regular Rate and Rhythm Respiratory: Yes: Regular, CTA Bilaterally. No: Rales, Rhonchi Gastrointestinal: Yes: Normal Bowel Sounds, Soft. No: Tenderness Renal/: Yes: Anuria. No: Bladder Distention Edema: Yes Edema: LLE: Trace, RLE: Trace Neurological: Yes: Alert, Oriented Assessment/Plan 89 year old woman with PMhx of ESRD on HD, CAD s/p PCI and stenting, CHF, Hypertension, Skin Ca, Hypothyrodism who presented with left arm/access arm swelling and pain. #Access Arm Swelling doppler negative for DVT Vascular Consult for r/o DVT Arm elevation Pain control as needed continue Coumadin #ESRD on HD missed dialysis yesterday for HD today with UF as tolerated dose all meds for intermittent HD Fluid restriction/salt restriction #CKD related Anemia Continue HILARIO with Hd with goal Hgb > 10 #Renal Osteodystrophy Continue Renvela #CHF will UF with HD as toleratead salt and fluid restriction Thank you Will follow Yahir Cortez DO
--- NOTE | 2017-05-13 11:09 | EKG ---
Test Reason : Blood Pressure : / mmHG Vent. 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
[2017-05-13 12:44] LABS: ANION GAP 14 (8-16); BLOOD UREA NITROGEN 85 mg/dL (7-18); CHLORIDE 101 mmol/L (98-107); CO2 20 mmol/L (21-32); CREATININE 5.8 mg/dL (0.55-1.02); GLUCOSE,RANDOM 119 mg/dL (74-106); POTASSIUM 5.5 mmol/L (3.5-5.1); SODIUM 135 mmol/L (136-145)
[2017-05-13] MEDS: ALBUMIN HUMAN 25% 12.5 GM/50 ML VIAL IVPB SCH ×4 (13:00→14:30)
--- NOTE | 2017-05-13 13:39 | CONSULT ---
Consult - History of Present Illness History of Present Illness: 89 year old woman with ESRD on HD. She has a HeRO graft placed in July 2016 after her left AV fistula thrombosed and central veins closed from old stents. She has done well but has been having swelling in the left arm which has waxed and waned over 2 weeks. Several Duplex exams have been negative for DVT. The graft flow is good with >1 L/min flow. Today she states arm feels better and is less swollen. On dialysis she has flow 250 cc/min with no venous hypertension. 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 Cardio/Vascular: Yes: AFIB (right sided ICD), CAD, CHF, HTN, Hyperlipdemia, Other (S/P PCI/stent, chronic diastolic CHF, right sided ICD) Gastrointestinal: Yes: Constipation, Gastritis, GERD, GI Bleed, Hiatal Hernia, Peptic Ulcer Disease Renal/: Yes: Renal Failure, Hemodialysis Musculoskeletal: Yes: Osteoarthritis Endocrine: Yes: Diabetes Mellitus, Hypothyroidism - Past Surgical History Past Surgical History: Yes: AICD (right sided), AV Fistula/Graft (), Cholecystectomy (lap choly), Stent (1999), Upper Endoscopy - Alcohol/Substance Use Hx Alcohol Use: No History of Substance Use: reports: None - Smoking History Smoking history: Never smoked Have you smoked in the past 12 months: No Aproximately how many cigarettes per day: 0 If you are a former smoker, when did you quit?: 1999 - Social History Usual Living Arrangement: Long-Term ADL: Support Services 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 History of Recent Travel: No Home Medications - Allergies Allergies/Adverse Reactions: Allergies Allergy/AdvReac Type Severity Reaction Status Date / Time codeine [Codeine] Allergy Mild Itching Verified 05/12/17 11:41 oxycodone HCl [From Percocet] Allergy Verified 05/12/17 11:41 - Home Medications Home Medications: Ambulatory Orders Levothyroxine [Synthroid -] 100 mcg PO DAILY 10/11/12 Metoprolol Succinate [Toprol XL -] 50 mg PO ASDIR 03/09/15 Acetaminophen [Tylenol .Regular Strength -] 650 mg PO Q6H PRN #0 tablet Multivitamin/Iron/Folic Acid [Daily Vitamin Formula-Iron Tab] 1 each PO DAILY Simethicone [Mylicon -] 80 mg PO Q4H PRN #60 tab.chew 03/23/16 Sertraline HCl [Zoloft -] 50 mg PO DAILY 07/12/16 Sevelamer Carbonate [Renvela -] 800 mg PO TIDCM tab 08/06/16 Warfarin Sodium [Coumadin] 2 mg PO DAILY #30 tablet 08/07/16 Folic Acid/Vit B Complex and C [Cassie-Mahendra Tablet] 0.8 mg PO DAILY 09/28/16 Ipratropium 0.02% Nebulizer [Atrovent 0.02% Nebulizer -] 1 neb NEB TID 09/28/16 Warfarin Na [Coumadin -] 2 mg PO DAILY@1800 tablet 05/01/17 Midodrine HCl [Proamatine -] 10 mg PO ONCE 05/12/17 Omeprazole 20 mg PO DAILY 05/12/17 Hydrocortisone 1% Cream [Hytone 1% Cream -] 1 applic TP BID 05/13/17 Polyethylene Glycol 3350 [Miralax (For Daily Use) -] 17 gm PO DAILY PRN Pregabalin [Lyrica] 75 mg PO DAILY 05/13/17 Zolpidem Tartrate [Ambien] 5 mg PO HS 05/13/17 Family Disease History - Family Disease History Family Disease History: Diabetes: Mother (nonHodgkins lymphoma), CA: Father ( of gastric cancer), Mother, Sister (brast cancer), Other: Brother ( Parkinsons) Physical Exam Vital Signs: Vital Signs Temperature 97.4 F L 05/13/17 06:30 Pulse Rate 91 H 05/13/17 12:40 Respiratory Rate 18 05/13/17 12:40 Blood Pressure 89/51 05/13/17 12:40 O2 Sat by Pulse Oximetry (%) 97 05/12/17 23:45 Edema: Yes Edema: LUE: 1+ Integumentary: Yes: Bruising (Left upper arm) Labs: CBC, BMP 05/13/17 07:00 05/13/17 11:55 Imaging - Results Ultrasound: Image Reviewed Problem List - Problems (1) ESRD on dialysis Code(s): N18.6 - END STAGE RENAL DISEASE; Z99.2 - DEPENDENCE ON RENAL DIALYSIS (2) Left arm swelling Assessment/Plan: There is no evidence for DVT of left arm. She has chronic central vein occlusion but HeRO graft should not add to swelling as it drains into right atrium. Last CXR 04/21 showed catheter in good position in RA. Unclear if arm swelling is due to positioning or local factors from infiltration during dialysis. There is no indication that any intervention is needed at this time. Elevate arm. Code(s): M79.89 - OTHER SPECIFIED SOFT TISSUE DISORDERS
--- NOTE | 2017-05-13 14:31 | PN ---
Progress Note (short form) - Note Progress Note: pt seen in dialysis no issues working well - access discussed with Dr. Junior also today. Vital Signs Temp 97.4 F L 05/13/17 06:30 Pulse 90 05/13/17 13:40 Resp 18 05/13/17 13:40 BP 93/57 05/13/17 13:40 Pulse Ox 97 05/12/17 23:45 Intake & Output 05/12/17 05/13/17 05/13/17 23:59 11:59 23:59 Intake Total 350 350 Output Total 200 Balance 150 350 Weight 146 lb 3.2 oz 146 lb 3.2 oz Intake: IVPB 350 Oral 350 Output: Urine 200 Void 200 Other: Voiding Method Diaper Bedpan Height 5 ft 5 ft Body Mass Index (BMI) 28.5 28.5 Weight Measurement Method Built in [facility] Active Medications Acetaminophen (Tylenol -) 650 mg PO Q6H PRN PRN Reason: FEVER OR PAIN Albumin Human (Albumin Human 25%) 12.5 gm IVPB Q30M [facility] Stop: 05/13/17 14:31 Last Admin: 05/13/17 13:30 Dose: 12.5 gm Ceftriaxone Sodium 1 gm/ (Dextrose) 100 mls @ 200 mls/hr IVPB DAILY [facility] Insulin Aspart (Novolog Vial Sliding Scale -) 1 vial SQ TIDAC [facility] PRN Reason: Protocol Last Admin: 05/13/17 06:38 Dose: 2 units Insulin Aspart (Novolog Vial Sliding Scale -) 1 vial SQ HS [facility] PRN Reason: Protocol Last Admin: 05/12/17 23:47 Dose: 2 units Levothyroxine Sodium (Synthroid -) 100 mcg PO AM [facility] Last Admin: 05/13/17 10:07 Dose: 100 mcg Metoprolol Succinate (Toprol Xl -) 50 mg PO SuTuThSa@1000 [facility] Midodrine (Proamatine -) 10 mg PO MoWeFr@1000 [facility] Multivit/Ca Carb/B Cmplx/FA/Prenat (Nephro-Mahendra -) 1 tablet PO DAILY [facility] Multivitamins/Minerals/Vitamin C (Tab-A-Vit -) 1 tab PO DAILY [facility] Pantoprazole Sodium (Protonix -) 40 mg PO DAILY [facility] Polyethylene Glycol (Miralax (For Daily Use) -) 17 gm PO DAILY [facility] Pregabalin (Lyrica -) 75 mg PO DAILY [facility] Sertraline HCl (Zoloft -) 50 mg PO DAILY [facility] Sevelamer Carbonate (Renvela -) 1,600 mg PO TIDCM [facility] Last Admin: 05/13/17 11:41 Dose: Not Given Simethicone (Mylicon -) 80 mg PO Q4H PRN PRN Reason: GAS Tramadol HCl (Ultram -) 50 mg PO Q8H PRN PRN Reason: PAIN Last Admin: 05/12/17 21:30 Dose: 50 mg Warfarin Sodium (Coumadin -) 2 mg PO DAILY@1800 [facility] CBC, BMP 05/13/17 07:00 05/13/17 11:55 INR, PTT INR 2.40 (0.82-1.09) H 05/13/17 07:00 Physical Examination Constitutional: Yes: No Distress, Calm/ comfortable Eyes: Yes: Conjunctiva Clear HENT: Yes: Atraumatic Neck: Yes: Supple/ no jvd Cardiovascular: Yes: Regular Rate and Rhythm Respiratory: Yes: Regular, CTA Bilaterally. Gastrointestinal: Yes: Normal Bowel Sounds, Soft. No: Tenderness lue-- mild echymosis / reddness . Assessment/Plan 89 year old woman with PMhx of ESRD on HD, CAD s/p PCI and stenting, CHF, Hypertension, Skin Ca, Hypothyrodism who presented with left arm/access arm swelling and pain. doppler negative for DVT Vascular Consult noted/ discussed #ESRD on HD missed dialysis yesterday being dialyzed today continue other meds inr therapeutic abx will follow
--- NOTE | 2017-05-13 14:33 | PN ---
Problem List - Problems (1) ESRD on dialysis Code(s): N18.6 - END STAGE RENAL DISEASE; Z99.2 - DEPENDENCE ON RENAL DIALYSIS (2) Left arm swelling Code(s): M79.89 - OTHER SPECIFIED SOFT TISSUE DISORDERS (3) Anemia Code(s): D64.9 - ANEMIA, UNSPECIFIED Qualifiers: Chronic kidney disease stage: on chronic dialysis (4) Atrial flutter Code(s): I48.92 - UNSPECIFIED ATRIAL FLUTTER Qualifiers: Atrial flutter type: typical Qualified Code(s): I48.3 - Typical atrial flutter (5) CAD (coronary artery disease) Code(s): I25.10 - ATHSCL HEART DISEASE OF [place] CORONARY ARTERY W/O ANG PCTRS Qualifiers: Coronary Disease-Associated Artery/Lesion type: [place] artery [place] vs. transplanted heart: [place] heart Associated angina: without angina Qualified Code(s): I25.10 - Atherosclerotic heart disease of [place] coronary artery without angina pectoris (6) Cellulitis of arm, left Code(s): L03.114 - CELLULITIS OF LEFT UPPER LIMB
[2017-05-13] MEDS ORDERED: PT OWN MED DRAWER 7, Y5N ONE (16:24)
[2017-05-13 16:26] LABS: ANION GAP 11 (8-16); BLOOD UREA NITROGEN 28 mg/dL (7-18); CALCIUM 8.6 mg/dL (8.5-10.1); CHLORIDE 99 mmol/L (98-107); CO2 28 mmol/L (21-32); CREATININE 2.3 mg/dL (0.55-1.02); GLUCOSE,RANDOM 146 mg/dL (74-106); POTASSIUM 3.3 mmol/L (3.5-5.1); SODIUM 138 mmol/L (136-145)
[2017-05-13] MEDS: PANTOPRAZOLE 20 MG TABLET (FP) PO SCH (16:35)
[2017-05-13] MEDS: CEFTRIAXONE 1 G/50 ML PREMIX 50 ML IVPB SCH (16:36)
[2017-05-13] MEDS: PREGABALIN 75 MG CAPSULE PO SCH (16:36)
[2017-05-13] MEDS: MULTIVITAMINS (DAILY MVI) TABLET (FP) PO SCH (16:36)
[2017-05-13] MEDS: SERTRALINE HCL 50 MG TABLET (FP) PO SCH (16:36)
[2017-05-13] MEDS: WARFARIN NA 2 MG TABLET (UD) PO SCH (17:26)
[2017-05-13] MEDS: VITAMIN B COMP W-C 1 EA TABLET PO SCH (17:26)
[2017-05-14] MEDS: LEVOTHYROXINE NA 100 MCG TABLET (FP) PO SCH (06:08)
[2017-05-14] MEDS: INSULIN SLIDING SCALE (NOVOLOG) 1 VIAL SQ SCH ×4 (06:09→21:46)
[2017-05-14 07:47] LABS: BASO % 0.5 % (0-2.0); EOS % 0.3 % (0-4.5); HEMATOCRIT 30.6 % (32.4-45.2); HEMOGLOBIN 9.5 GM/dL (10.7-15.3); LYMPH % 7.1 % (8-40); MCH 28.7 pg (25.7-33.7); MCHC 31.2 g/dl (32.0-36.0); MEAN CELL VOLUME 92.1 fl (80-96); MEAN PLT VOLUME 9.1 fl (7.5-11.1); NEUT % 84.1 % (42.8-82.8); PLATELET COUNT 150 K/MM3 (134-434); RBC 3.32 M/mm3 (3.60-5.2); RDW 18.5 % (11.6-15.6); WHITE BLOOD COUNT 5.9 K/mm3 (4.0-10.0)
[2017-05-14 08:18] LABS: ANION GAP 11 (8-16); BLOOD UREA NITROGEN 48 mg/dL (7-18); CALCIUM 8.8 mg/dL (8.5-10.1); CHLORIDE 100 mmol/L (98-107); CO2 26 mmol/L (21-32); CREATININE 4.2 mg/dL (0.55-1.02); GLUCOSE,RANDOM 175 mg/dL (74-106); POTASSIUM 4.2 mmol/L (3.5-5.1); SODIUM 137 mmol/L (136-145)
[2017-05-14] MEDS ORDERED: PT OWN MED DRAWER 7, Y5N ONE ×2 (08:32→15:03)
[2017-05-14] MEDS: SEVELAMER CARBONATE 800 MG TAB (FP) PO SCH ×3 (08:36→17:46)
[2017-05-14] MEDS ORDERED: EPOETIN ALFA 10,000 UNIT/1 ML VIAL IVPUSH ONE ×2 (09:18→12:15)
--- NOTE | 2017-05-14 09:38 | PN ---
Progress Note (short form) - Note Progress Note: Renal follow up for ESRD on HD Pt seen and examined at the bedside awake and alert but confused still has pain in left shoulder/arm no sob, chest pain, abd pain s/p dialysis yesterday Vital Signs Temperature 98.2 F 05/14/17 06:00 Pulse Rate 99 H 05/14/17 06:00 Respiratory Rate 20 05/14/17 06:00 Blood Pressure 120/60 05/14/17 06:00 O2 Sat by Pulse Oximetry (%) 97 05/13/17 21:00 Intake & Output 05/11/17 05/12/17 05/13/17 05/14/17 23:59 23:59 23:59 23:59 Intake Total 750 Output Total 200 Balance 550 Weight 66.315 kg 66.315 kg NAD awake and aelrt RRR CTA soft NT/ND trace LE edema CBC, BMP 05/14/17 06:00 05/14/17 06:00 Current Medications Acetaminophen (Tylenol -) 650 mg PO Q6H PRN PRN Reason: FEVER OR PAIN Epoetin Keith (Epogen -) 10,000 units IVPUSH ONCE ONE Stop: 05/14/17 09:19 CEFTRIAXONE 1 G/50 ML PREMIX (Ceftriaxone 1 Gm-D5w Bag) 50 mls @ 100 mls/hr IVPB DAILY [facility] Last Admin: 05/13/17 16:36 Dose: 100 mls/hr Insulin Aspart (Novolog Vial Sliding Scale -) 1 vial SQ TIDAC [facility] PRN Reason: Protocol Last Admin: 05/14/17 06:09 Dose: 2 units Insulin Aspart (Novolog Vial Sliding Scale -) 1 vial SQ HS [facility] PRN Reason: Protocol Last Admin: 05/13/17 22:30 Dose: Not Given Levothyroxine Sodium (Synthroid -) 100 mcg PO AM [facility] Last Admin: 05/14/17 06:08 Dose: 100 mcg Metoprolol Succinate (Toprol Xl -) 50 mg PO SuTuThSa@1000 [facility] Midodrine (Proamatine -) 10 mg PO MoWeFr@1000 [facility] Midodrine (Proamatine -) 10 mg PO ONCE ONE Stop: 05/14/17 10:01 Multivit/Ca Carb/B Cmplx/FA/Prenat (Nephro-Mahendra -) 1 tablet PO DAILY [facility] Last Admin: 05/13/17 17:26 Dose: 1 tablet Multivitamins/Minerals/Vitamin C (Tab-A-Vit -) 1 tab PO DAILY [facility] Last Admin: 05/13/17 16:36 Dose: 1 tab Pantoprazole Sodium (Protonix -) 40 mg PO DAILY [facility] Last Admin: 05/13/17 16:35 Dose: 40 mg Polyethylene Glycol (Miralax (For Daily Use) -) 17 gm PO DAILY [facility] Last Admin: 05/13/17 16:36 Dose: 17 grams Pregabalin (Lyrica -) 75 mg PO DAILY [facility] Last Admin: 05/13/17 16:36 Dose: 75 mg Sertraline HCl (Zoloft -) 50 mg PO DAILY [facility] Last Admin: 05/13/17 16:36 Dose: 50 mg Sevelamer Carbonate (Renvela -) 1,600 mg PO TIDCM [facility] Last Admin: 05/14/17 08:36 Dose: 1,600 mg Simethicone (Mylicon -) 80 mg PO Q4H PRN PRN Reason: GAS Tramadol HCl (Ultram -) 50 mg PO Q8H PRN PRN Reason: PAIN Last Admin: 05/12/17 21:30 Dose: 50 mg Warfarin Sodium (Coumadin -) 2 mg PO DAILY@1800 [facility] Last Admin: 05/13/17 17:26 Dose: 2 mg 89 year old woman with PMhx of ESRD on HD, CAD s/p PCI and stenting, CHF, Hypertension, Skin Ca, Hypothyrodism who presented with left arm/access arm swelling and pain. #Access Arm Swelling/Pain doppler negative for DVT seen by vascular, no acute intervention needed arm elevation continue coumadin check x-ray of left shoulder #ESRD on HD s/p dialysis yesterday to have abridged treatment today to return pt to regular schedule #CKD related Anemia Continue HILARIO with Hd with goal Hgb > 10 #Renal Osteodystrophy Continue Renvela #CHF will UF with HD as tolerated salt and fluid restriction Yahir Cortez DO
[2017-05-14] MEDS ORDERED: MIDODRINE HCL 5 MG TABLET PO ONE (12:30)
[2017-05-14 12:36] LABS: INR 2.9 (0.82-1.09); PROTHROMBIN TIME (PATIENT) 32.8 SEC (9.98-11.88)
--- NOTE | 2017-05-14 13:14 | PN ---
Progress Note (short form) - Note Progress Note: pt seen in dialysis no complains except left shoulder hurts xrays show - partial anterior displacement- ortho consulted no other issues mood stable Vital Signs Temp 98.5 F 05/14/17 12:05 Pulse 86 05/14/17 12:10 Resp 18 05/14/17 12:10 BP 107/58 05/14/17 12:10 Pulse Ox 97 05/13/17 21:00 Intake & Output 05/13/17 05/14/17 05/14/17 23:59 11:59 23:59 Intake Total 400 120 Balance 400 120 Intake: IVPB 50 Oral 350 120 Other: Voiding Method Incontinent Diaper # Unmeasured Voids Void 0 Bowel Movement No No # Bowel Movements 0 Active Medications Acetaminophen (Tylenol -) 650 mg PO Q6H PRN PRN Reason: FEVER OR PAIN CEFTRIAXONE 1 G/50 ML PREMIX (Ceftriaxone 1 Gm-D5w Bag) 50 mls @ 100 mls/hr IVPB DAILY [facility] Last Admin: 05/13/17 16:36 Dose: 100 mls/hr Insulin Aspart (Novolog Vial Sliding Scale -) 1 vial SQ TIDAC [facility] PRN Reason: Protocol Last Admin: 05/14/17 11:39 Dose: 2 units Insulin Aspart (Novolog Vial Sliding Scale -) 1 vial SQ HS [facility] PRN Reason: Protocol Last Admin: 05/13/17 22:30 Dose: Not Given Levothyroxine Sodium (Synthroid -) 100 mcg PO AM [facility] Last Admin: 05/14/17 06:08 Dose: 100 mcg Metoprolol Succinate (Toprol Xl -) 50 mg PO SuTuThSa@1000 [facility] Midodrine (Proamatine -) 10 mg PO MoWeFr@1000 [facility] Multivit/Ca Carb/B Cmplx/FA/Prenat (Nephro-Mahendra -) 1 tablet PO DAILY [facility] Last Admin: 05/13/17 17:26 Dose: 1 tablet Multivitamins/Minerals/Vitamin C (Tab-A-Vit -) 1 tab PO DAILY [facility] Last Admin: 05/13/17 16:36 Dose: 1 tab Pantoprazole Sodium (Protonix -) 40 mg PO DAILY [facility] Last Admin: 05/13/17 16:35 Dose: 40 mg Pregabalin (Lyrica -) 75 mg PO DAILY [facility] Last Admin: 12/30/17 16:36 Dose: 75 mg Senna (Senna -) 1 tab PO BID [facility] Sertraline HCl (Zoloft -) 50 mg PO DAILY [facility] Last Admin: 05/13/17 16:36 Dose: 50 mg Sevelamer Carbonate (Renvela -) 1,600 mg PO TIDCM [facility] Last Admin: 05/14/17 11:33 Dose: 1,600 mg Simethicone (Mylicon -) 80 mg PO Q4H PRN PRN Reason: GAS Last Admin: 05/14/17 11:53 Dose: 80 mg Tramadol HCl (Ultram -) 50 mg PO Q8H PRN PRN Reason: PAIN Last Admin: 05/12/17 21:30 Dose: 50 mg Warfarin Sodium (Coumadin -) 2 mg PO DAILY@1800 [facility] Last Admin: 05/13/17 17:26 Dose: 2 mg CBC, BMP 05/14/17 06:00 05/14/17 06:00 x ray - left shoulder - partial anterior dislocation Physical Examination Constitutional: Yes: No Distress, comfortable Eyes: Yes: Conjunctiva Clear HENT: Yes: Atraumatic Neck: Yes: Supple/ no jvd Cardiovascular: Yes: Regular Rate and Rhythm Respiratory: Yes: Regular, CTA Bilaterally. Gastrointestinal: Yes: Normal Bowel Sounds, Soft. No: Tenderness lue-- mild echymosis / reddness ---better left shoulder-- mild tenderness + anteriorly ROm - limited. Assessment/Plan 89 year old woman with PMhx of ESRD on HD, CAD s/p PCI and stenting, CHF, Hypertension, Skin Ca, Hypothyrodism who presented with left arm/access arm swelling and pain. doppler negative for DVT Vascular Consult noted/ discussed #ESRD on HD being dialyzed continue other meds inr therapeutic abx ortho consult Problem List - Problems (1) ESRD on dialysis Code(s): N18.6 - END STAGE RENAL DISEASE; Z99.2 - DEPENDENCE ON RENAL DIALYSIS (2) Left arm swelling Code(s): M79.89 - OTHER SPECIFIED SOFT TISSUE DISORDERS (3) Anemia Code(s): D64.9 - ANEMIA, UNSPECIFIED Qualifiers: Chronic kidney disease stage: on chronic dialysis (4) Atrial flutter Code(s): I48.92 - UNSPECIFIED ATRIAL FLUTTER Qualifiers: Atrial flutter type: typical Qualified Code(s): I48.3 - Typical atrial flutter (5) CAD (coronary artery disease) Code(s): I25.10 - ATHSCL HEART DISEASE OF [place] CORONARY ARTERY W/O ANG PCTRS Qualifiers: Coronary Disease-Associated Artery/Lesion type: [place] artery [place] vs. transplanted heart: [place] heart Associated angina: without angina Qualified Code(s): I25.10 - Atherosclerotic heart disease of [place] coronary artery without angina pectoris (6) Cellulitis of arm, left Code(s): L03.114 - CELLULITIS OF LEFT UPPER LIMB (7) Dislocation, shoulder, anterior Code(s): S43.016A - ANTERIOR DISLOCATION OF UNSPECIFIED HUMERUS, INIT ENCNTR
[2017-05-14] MEDS: CEFTRIAXONE 1 G/50 ML PREMIX 50 ML IVPB SCH (15:08)
[2017-05-14] MEDS: ACETAMINOPHEN 325 MG TABLET (FP) PO PRN (15:09)
[2017-05-14] MEDS: PREGABALIN 75 MG CAPSULE PO SCH (15:09)
[2017-05-14] MEDS: METOPROLOL SUCCINATE 50 MG TAB.SR.24H (FP) PO SCH (15:09)
[2017-05-14] MEDS: PANTOPRAZOLE 20 MG TABLET (FP) PO SCH (15:09)
[2017-05-14] MEDS: MULTIVITAMINS (DAILY MVI) TABLET (FP) PO SCH (15:09)
[2017-05-14] MEDS: SERTRALINE HCL 50 MG TABLET (FP) PO SCH (15:09)
[2017-05-14] MEDS: VITAMIN B COMP W-C 1 EA TABLET PO SCH (15:09)
[2017-05-14] MEDS: SENNOSIDES 8.6MG TABLET (FP) PO SCH ×2 (15:11→21:42)
[2017-05-14] MEDS: WARFARIN NA 2 MG TABLET (UD) PO SCH (17:46)
--- NOTE | 2017-05-14 18:34 | PN ---
Progress Note (short form) - Note Progress Note: Pt seen and examined. She is an 89 yo right hand dom female with acute (2 weeks ) on chronic left shoulder pain and dysfunction. She denies any recent trauma. PE Left shoulder is swollen, + joint effusion. She has a dialysis shunt at the anterior aspect of the left shoulder. No signs of infection, no erythema, not hot, no drainage, no cellulitis. LUE is grossly NVI. Good ROM at the left elbow, forearm, wrist, fingers. Poor active motion of the left shoulder. Xrays Show OA and mild subluxation of the left shoulder. Imp Possible rotator cuff arthropathy, + OA. Possible spontaneous hemarthrosis (dialysis pt) Rec The pt would refuse any surgery, therefore getting an MRI to document a possible RTC tear is not necessary. I may aspirate the shoulder, she is considering this option.
[2017-05-14] MEDS: HYDROCORTISONE 1% TOPICAL OINT 30 GM TUBE TP SCH (21:41)
[2017-05-15] MEDS: INSULIN SLIDING SCALE (NOVOLOG) 1 VIAL SQ SCH ×4 (06:07→22:26)
[2017-05-15] MEDS: LEVOTHYROXINE NA 100 MCG TABLET (FP) PO SCH (06:07)
[2017-05-15 08:07] LABS: INR 2.23 (0.82-1.09); PROTHROMBIN TIME (PATIENT) 25.2 SEC (9.98-11.88)
--- NOTE | 2017-05-15 10:15 | PN ---
Progress Note (short form) - Note Progress Note: Renal follow up for ESRD on HD Pt seen and examined at the bedside sleeping daughter at the bedside x-ray showed should dislocation and effusion/hematoma seen by ortho Vital Signs Temperature 98.2 F 05/15/17 06:36 Pulse Rate 92 H 05/15/17 06:36 Respiratory Rate 20 05/15/17 06:36 Blood Pressure 102/62 05/15/17 06:36 O2 Sat by Pulse Oximetry (%) 94 L 05/14/17 21:00 Intake & Output 05/12/17 05/13/17 05/14/17 05/15/17 23:59 23:59 23:59 23:59 Intake Total 750 120 Output Total 200 Balance 550 120 Weight 66.315 kg 66.315 kg 65.227 kg NAD awake and aelrt RRR CTA soft NT/ND trace LE edema CBC, BMP 05/14/17 06:00 05/14/17 06:00 Current Medications Acetaminophen (Tylenol -) 650 mg PO Q6H PRN PRN Reason: FEVER OR PAIN Last Admin: 05/14/17 15:09 Dose: 650 mg Hydrocortisone (Hytone 1% Ointment -) 1 applic TP BID [facility] Last Admin: 05/14/17 21:41 Dose: 1 applic CEFTRIAXONE 1 G/50 ML PREMIX (Ceftriaxone 1 Gm-D5w Bag) 50 mls @ 100 mls/hr IVPB DAILY [facility] Last Admin: 05/14/17 15:08 Dose: 100 mls/hr Insulin Aspart (Novolog Vial Sliding Scale -) 1 vial SQ TIDAC [facility] PRN Reason: Protocol Last Admin: 05/15/17 06:07 Dose: 2 units Insulin Aspart (Novolog Vial Sliding Scale -) 1 vial SQ HS [facility] PRN Reason: Protocol Last Admin: 05/14/17 21:46 Dose: Not Given Levothyroxine Sodium (Synthroid -) 100 mcg PO AM [facility] Last Admin: 05/15/17 06:07 Dose: 100 mcg Metoprolol Succinate (Toprol Xl -) 50 mg PO SuTuThSa@1000 [facility] Last Admin: 05/14/17 15:09 Dose: 50 mg Midodrine (Proamatine -) 10 mg PO MoWeFr@1000 [facility] Multivit/Ca Carb/B Cmplx/FA/Prenat (Nephro-Mahendra -) 1 tablet PO DAILY [facility] Last Admin: 12/31/17 15:09 Dose: 1 tablet Multivitamins/Minerals/Vitamin C (Tab-A-Vit -) 1 tab PO DAILY [facility] Last Admin: 05/14/17 15:09 Dose: 1 tab Pantoprazole Sodium (Protonix -) 40 mg PO DAILY [facility] Last Admin: 05/14/17 15:09 Dose: 40 mg Pregabalin (Lyrica -) 75 mg PO DAILY [facility] Last Admin: 05/14/17 15:09 Dose: 75 mg Senna (Senna -) 1 tab PO BID [facility] Last Admin: 05/14/17 21:42 Dose: 1 tab Sertraline HCl (Zoloft -) 50 mg PO DAILY [facility] Last Admin: 05/14/17 15:09 Dose: 50 mg Sevelamer Carbonate (Renvela -) 1,600 mg PO TIDCM [facility] Last Admin: 05/14/17 17:46 Dose: 1,600 mg Simethicone (Mylicon -) 80 mg PO Q4H PRN PRN Reason: GAS Last Admin: 05/14/17 11:53 Dose: 80 mg Tramadol HCl (Ultram -) 50 mg PO Q8H PRN PRN Reason: PAIN Last Admin: 05/12/17 21:30 Dose: 50 mg Warfarin Sodium (Coumadin -) 2 mg PO DAILY@1800 [facility] Last Admin: 05/14/17 17:46 Dose: 2 mg 89 year old woman with PMhx of ESRD on HD, CAD s/p PCI and stenting, CHF, Hypertension, Skin Ca, Hypothyrodism who presented with left arm/access arm swelling and pain. #Access Arm Swelling/Pain joint dislocation noted on X-ray seen by ortho possible joint aspiration pain control arm elevation #ESRD on HD s/p dialysis yesterday next treatment planned for monday #CKD related Anemia Continue HILARIO with Hd with goal Hgb > 10 #Renal Osteodystrophy Continue Renvela #CHF will UF with HD as tolerated salt and fluid restriction Yahir Cortez DO
[2017-05-15] MEDS: SERTRALINE HCL 50 MG TABLET (FP) PO SCH (10:32)
[2017-05-15] MEDS: PANTOPRAZOLE 20 MG TABLET (FP) PO SCH (10:32)
[2017-05-15] MEDS: MULTIVITAMINS (DAILY MVI) TABLET (FP) PO SCH (10:32)
[2017-05-15] MEDS: PREGABALIN 75 MG CAPSULE PO SCH (10:32)
[2017-05-15] MEDS: SENNOSIDES 8.6MG TABLET (FP) PO SCH ×2 (10:32→22:27)
[2017-05-15] MEDS: VITAMIN B COMP W-C 1 EA TABLET PO SCH (10:33)
[2017-05-15] MEDS: SEVELAMER CARBONATE 800 MG TAB (FP) PO SCH ×3 (10:33→18:16)
[2017-05-15] MEDS: HYDROCORTISONE 1% TOPICAL OINT 30 GM TUBE TP SCH ×2 (10:35→22:31)
[2017-05-15] MEDS: CEFTRIAXONE 1 G/50 ML PREMIX 50 ML IVPB SCH (10:36)
[2017-05-15] MEDS: ACETAMINOPHEN 325 MG TABLET (FP) PO PRN (11:19)
--- NOTE | 2017-05-15 12:04 | PN ---
Progress Note (short form) - Note Progress Note: Vital Signs Temp 98.2 F 05/15/17 06:36 Pulse 92 H 05/15/17 06:36 Resp 20 05/15/17 06:36 BP 102/62 05/15/17 06:36 Pulse Ox 94 L 05/14/17 21:00 Intake & Output 05/14/17 05/15/17 05/15/17 23:59 11:59 23:59 Intake Total 120 400 Balance 120 400 Weight 143 lb 12.8 oz Intake: Oral 120 400 Other: Voiding Method Diaper Bedside Commode # Unmeasured Voids Void 0 0 Bowel Movement Yes Yes # Bowel Movements 2 Weight Measurement Method Built in [facility] Active Medications Acetaminophen (Tylenol -) 650 mg PO Q6H PRN PRN Reason: FEVER OR PAIN Last Admin: 05/15/17 11:19 Dose: 650 mg Hydrocortisone (Hytone 1% Ointment -) 1 applic TP BID [facility] Last Admin: 05/15/17 10:35 Dose: 1 applic CEFTRIAXONE 1 G/50 ML PREMIX (Ceftriaxone 1 Gm-D5w Bag) 50 mls @ 100 mls/hr IVPB DAILY [facility] Last Admin: 05/15/17 10:36 Dose: 100 mls/hr Insulin Aspart (Novolog Vial Sliding Scale -) 1 vial SQ TIDAC [facility] PRN Reason: Protocol Last Admin: 05/15/17 06:07 Dose: 2 units Insulin Aspart (Novolog Vial Sliding Scale -) 1 vial SQ HS [facility] PRN Reason: Protocol Last Admin: 05/14/17 21:46 Dose: Not Given Levothyroxine Sodium (Synthroid -) 100 mcg PO AM [facility] Last Admin: 05/15/17 06:07 Dose: 100 mcg Metoprolol Succinate (Toprol Xl -) 50 mg PO SuTuThSa@1000 [facility] Last Admin: 05/14/17 15:09 Dose: 50 mg Midodrine (Proamatine -) 10 mg PO MoWeFr@1000 [facility] Last Admin: 05/15/17 10:31 Dose: 10 mg Multivit/Ca Carb/B Cmplx/FA/Prenat (Nephro-Mahendra -) 1 tablet PO DAILY [facility] Last Admin: 05/15/17 10:33 Dose: 1 tablet Multivitamins/Minerals/Vitamin C (Tab-A-Vit -) 1 tab PO DAILY [facility] Last Admin: 05/15/17 10:32 Dose: 1 tab Pantoprazole Sodium (Protonix -) 40 mg PO DAILY [facility] Last Admin: 05/15/17 10:32 Dose: 40 mg Pregabalin (Lyrica -) 75 mg PO DAILY [facility] Last Admin: 05/15/17 10:32 Dose: 75 mg Senna (Senna -) 1 tab PO BID [facility] Last Admin: 05/15/17 10:32 Dose: 1 tab Sertraline HCl (Zoloft -) 50 mg PO DAILY [facility] Last Admin: 05/15/17 10:32 Dose: 50 mg Sevelamer Carbonate (Renvela -) 1,600 mg PO TIDCM [facility] Last Admin: 05/15/17 10:33 Dose: 1,600 mg Simethicone (Mylicon -) 80 mg PO Q4H PRN PRN Reason: GAS Last Admin: 05/14/17 11:53 Dose: 80 mg Tramadol HCl (Ultram -) 50 mg PO Q8H PRN PRN Reason: PAIN Last Admin: 05/12/17 21:30 Dose: 50 mg Warfarin Sodium (Coumadin -) 2 mg PO DAILY@1800 [facility] Last Admin: 05/14/17 17:46 Dose: 2 mg CBC, BMP 05/14/17 06:00 05/14/17 06:00 Microbiology 05/12/17 21:18 Blood Culture - Preliminary Blood - Peripheral Venous NO GROWTH OBTAINED AFTER 48 HOURS, INCUBATION TO CONTINUE FOR 3 DAYS. 05/12/17 21:18 Blood Culture - Preliminary Blood - Peripheral Venous NO GROWTH OBTAINED AFTER 48 HOURS, INCUBATION TO CONTINUE FOR 3 DAYS. 05/13/17 13:10 Blood Culture - Preliminary Blood - Pre-Dialysis NO GROWTH OBTAINED AFTER 24 HOURS, INCUBATION TO CONTINUE FOR 4 DAYS. Problem List - Problems (1) ESRD on dialysis Code(s): N18.6 - END STAGE RENAL DISEASE; Z99.2 - DEPENDENCE ON RENAL DIALYSIS (2) Left arm swelling Code(s): M79.89 - OTHER SPECIFIED SOFT TISSUE DISORDERS (3) Anemia Code(s): D64.9 - ANEMIA, UNSPECIFIED Qualifiers: Chronic kidney disease stage: on chronic dialysis (4) Atrial flutter Code(s): I48.92 - UNSPECIFIED ATRIAL FLUTTER Qualifiers: Atrial flutter type: typical Qualified Code(s): I48.3 - Typical atrial flutter (5) CAD (coronary artery disease) Code(s): I25.10 - ATHSCL HEART DISEASE OF [place] CORONARY ARTERY W/O ANG PCTRS Qualifiers: Coronary Disease-Associated Artery/Lesion type: [place] artery [place] vs. transplanted heart: [place] heart Associated angina: without angina Qualified Code(s): I25.10 - Atherosclerotic heart disease of [place] coronary artery without angina pectoris (6) Cellulitis of arm, left Code(s): L03.114 - CELLULITIS OF LEFT UPPER LIMB (7) Dislocation, shoulder, anterior Code(s): S43.016A - ANTERIOR DISLOCATION OF UNSPECIFIED HUMERUS, INIT ENCNTR
--- NOTE | 2017-05-15 13:19 | DS ---
Physical Examination Vital Signs: Vital Signs Temperature 98.2 F 05/15/17 06:36 Pulse Rate 92 H 05/15/17 06:36 Respiratory Rate 20 05/15/17 06:36 Blood Pressure 102/62 05/15/17 06:36 O2 Sat by Pulse Oximetry (%) 94 L 05/14/17 21:00 Findings/Remarks: feels well. no complains daughters at bedside pt wants to go back to longterm daughters also want same--they say she need to go today back otherwise she will lose bed. Ortho consult also noted/ appreciated. pt refuses any procedure-- taking fluid out of joint etc-- daughters agrees. nurse reports she is weak today - legs Constitutional: Yes: No Distress, Calm Eyes: Yes: Conjunctiva Clear Cardiovascular: Yes: Pulse Irregular. No: Regular Rate and Rhythm Respiratory: Yes: Diminished (at bases) Gastrointestinal: Yes: Normal Bowel Sounds, Soft Edema: No (chronic skin changes-) Neurological: Yes: Alert, Other (moves all extremeities) Labs: CBC, BMP 05/14/17 06:00 05/14/17 06:00 Discharge Summary Reason For Visit: CELLULITIS/END STAGE RENAL FAILURE ON DIALYSIS Current Active Problems Cellulitis of arm, left (Acute) Dislocation, shoulder, anterior (Acute) ESRD on dialysis (Acute) Left arm swelling (Acute) Hospital Course: This is an 89 year old female with a past medical history significant for ESRD on hemodialysis MWF and mult Left upper arm AV grafts/fistula procedures who presented from her dialysis center for swelling of her left arm. They were unable to perform dialyisis today due to the swelling. Pt also reports pain to left arm with severely limited mobility. Pt reports that upon dc from here on her arm was swollen but the swelling went down at her SNF ([facility] [place]) but then started to recur and was the worst today. ER course was notable for: (1) WBC 6.7 (2) venous doppler negative for clot (3) arterial doppler + patent left upper extremity AV fistula Recent Travel: pt denies PAST MEDICAL HISTORY: ESRD on dialysis MWF CAD dCHF afib/flutter HTN HLD hypothyroidism peripheral neuropathy GERD, PUD OA DM PAST SURGICAL HISTORY: AICD stent x 2 L arm AV dialysis graft (now thrombosed) L arm AV fistula patent cholecystectomy pt admitted to hospital [facility] graft working well- no issues treated with abx -- better ortho also noted for left shoulder swelling - small anterior dislocation pt/ family refused any further work up discussed with nursing staff will send pt back to [facility]. meds reconcilled will give keflex for 5 days may need to transfer via Ambulance -- likely due to weakness of legs -- discharge time 35 min in examining/ documenting and coordating care. Condition: Guarded - Instructions Referrals: Dariela Milian MD [Primary Care Provider] - Disposition: [facility] - Home Medications Comprehensive Discharge Medication List: Ambulatory Orders Levothyroxine [Synthroid -] 100 mcg PO DAILY 10/11/12 Metoprolol Succinate [Toprol XL -] 50 mg PO ASDIR 03/09/15 Acetaminophen [Tylenol .Regular Strength -] 650 mg PO Q6H PRN #0 tablet Multivitamin/Iron/Folic Acid [Daily Vitamin Formula-Iron Tab] 1 each PO DAILY Simethicone [Mylicon -] 80 mg PO Q4H PRN #60 tab.chew 03/23/16 Sertraline HCl [Zoloft -] 50 mg PO DAILY 07/12/16 Sevelamer Carbonate [Renvela -] 800 mg PO TIDCM tab 08/06/16 Warfarin Sodium [Coumadin] 2 mg PO DAILY #30 tablet 08/07/16 Folic Acid/Vit B Complex and C [Cassie-Mahendra Tablet] 0.8 mg PO DAILY 09/28/16 Ipratropium 0.02% Nebulizer [Atrovent 0.02% Nebulizer -] 1 neb NEB TID 09/28/16 Omeprazole 20 mg PO DAILY 05/12/17 Hydrocortisone 1% Cream [Hytone 1% Cream -] 1 applic TP BID 05/13/17 Polyethylene Glycol 3350 [Miralax 119 gm Btl -] 17 gm PO DAILY PRN 05/13/17 Pregabalin [Lyrica] 75 mg PO DAILY 05/13/17 Zolpidem Tartrate [Ambien] 5 mg PO HS 05/13/17 Cephalexin [Keflex] 500 mg PO BID #10 capsule MDD 2 05/15/17 Hydrocortisone 1% Ointment [Hytone 1% Ointment -] 1 applic TP BID tube Insulin Sliding Scale [Novolog Vial Sliding Scale -] 1 vial SQ TIDAC units 06/01 Midodrine HCl [Proamatine -] 10 mg PO MoWeFr@1000 tablet 05/15/17 Multivitamins [Multivit ([facility])] 1 tab PO DAILY tab 05/15/17 Sennosides [Senna -] 1 tab PO BID tablet 05/15/17 Vitamin B Comp W-C [Nephro-Mahendra -] 1 tablet PO DAILY tablet 05/15/17
--- NOTE | 2017-05-15 18:05 | PN ---
Progress Note (short form) - Note Progress Note: Pt seen and examined. She states her left shoulder feels much better. Less pain , better ROM, less swollen. I agree, the shoulder effusion is less tense, less tender. Still no signs of infection. Not hot. Better ROM of the left shoulder compared to 24 hours ago. Will f/u as an out patient
[2017-05-15] MEDS: WARFARIN NA 2 MG TABLET (UD) PO SCH (18:16)
[2017-05-16] MEDS: INSULIN SLIDING SCALE (NOVOLOG) 1 VIAL SQ SCH ×2 (06:31→12:37)
[2017-05-16] MEDS: LEVOTHYROXINE NA 100 MCG TABLET (FP) PO SCH (06:32)
[2017-05-16] MEDS ORDERED: INSULIN DETEMIR 100 UNITS/ML MDV SQ ONE (08:09)
[2017-05-16] MEDS ORDERED: INSULIN (NOVOLOG) ASPART 100 UNITS/ML 10ML VIAL ONE ×2 (08:09→12:43)
[2017-05-16] MEDS ORDERED: PT OWN MED DRAWER 7, Y5N ONE ×2 (08:10→12:31)
[2017-05-16] MEDS: SEVELAMER CARBONATE 800 MG TAB (FP) PO SCH ×2 (08:25→12:37)
[2017-05-16] MEDS: CEFTRIAXONE 1 G/50 ML PREMIX 50 ML IVPB SCH (09:23)
[2017-05-16] MEDS: SENNOSIDES 8.6MG TABLET (FP) PO SCH (09:24)
[2017-05-16] MEDS: METOPROLOL SUCCINATE 50 MG TAB.SR.24H (FP) PO SCH (09:24)
[2017-05-16] MEDS: SERTRALINE HCL 50 MG TABLET (FP) PO SCH (09:24)
[2017-05-16] MEDS: PANTOPRAZOLE 20 MG TABLET (FP) PO SCH (09:24)
[2017-05-16] MEDS: PREGABALIN 75 MG CAPSULE PO SCH (09:25)
[2017-05-16] MEDS: MULTIVITAMINS (DAILY MVI) TABLET (FP) PO SCH (09:26)
[2017-05-16] MEDS: HYDROCORTISONE 1% TOPICAL OINT 30 GM TUBE TP SCH (09:26)
--- NOTE | 2017-05-16 09:29 | PN ---
Progress Note (short form) - Note Progress Note: comfortable No new issues Left shoulder better Patient could not go yesterday--- due to nursing staff/alanna issues etc. Denies chest pain or shortness of breath. Vital Signs Temp 97.7 F 05/16/17 06:00 Pulse 80 05/16/17 06:00 Resp 20 05/16/17 06:00 BP 123/59 05/16/17 06:00 Pulse Ox 94 L 05/15/17 21:00 Intake & Output 05/15/17 05/15/17 05/16/17 11:59 23:59 11:59 Intake Total 400 550 50 Balance 400 550 50 Weight 143 lb 12.8 oz Intake: IVPB 100 Oral 400 450 50 Other: Voiding Method Bedside Commode Bedside Commode # Unmeasured Voids Void 0 0 Bowel Movement Yes Yes # Bowel Movements 2 [facility] Active Medications Acetaminophen (Tylenol -) 650 mg PO Q6H PRN PRN Reason: FEVER OR PAIN Last Admin: 05/15/17 11:19 Dose: 650 mg Hydrocortisone (Hytone 1% Ointment -) 1 applic TP BID [facility] Last Admin: 05/16/17 09:26 Dose: 1 applic CEFTRIAXONE 1 G/50 ML PREMIX (Ceftriaxone 1 Gm-D5w Bag) 50 mls @ 100 mls/hr IVPB DAILY [facility] Last Admin: 05/16/17 09:23 Dose: 100 mls/hr Insulin Aspart (Novolog Vial Sliding Scale -) 1 vial SQ TIDAC [facility] PRN Reason: Protocol Last Admin: 05/16/17 06:31 Dose: 2 units Insulin Aspart (Novolog Vial Sliding Scale -) 1 vial SQ HS [facility] PRN Reason: Protocol Last Admin: 05/15/17 22:26 Dose: Not Given Levothyroxine Sodium (Synthroid -) 100 mcg PO AM [facility] Last Admin: 05/16/17 06:32 Dose: 100 mcg Metoprolol Succinate (Toprol Xl -) 50 mg PO SuTuThSa@1000 [facility] Last Admin: 05/16/17 09:24 Dose: 50 mg Midodrine (Proamatine -) 10 mg PO MoWeFr@1000 [facility] Last Admin: 05/15/17 10:31 Dose: 10 mg Multivit/Ca Carb/B Cmplx/FA/Prenat (Nephro-Mahendra -) 1 tablet PO DAILY [facility] Last Admin: 05/15/17 10:33 Dose: 1 tablet Multivitamins/Minerals/Vitamin C (Tab-A-Vit -) 1 tab PO DAILY [facility] Last Admin: 05/16/17 09:26 Dose: 1 tab Pantoprazole Sodium (Protonix -) 40 mg PO DAILY [facility] Last Admin: 05/16/17 09:24 Dose: 40 mg Pregabalin (Lyrica -) 75 mg PO DAILY [facility] Last Admin: 05/16/17 09:25 Dose: 75 mg Senna (Senna -) 1 tab PO BID [facility] Last Admin: 05/16/17 09:24 Dose: 1 tab Sertraline HCl (Zoloft -) 50 mg PO DAILY [facility] Last Admin: 05/16/17 09:24 Dose: 50 mg Sevelamer Carbonate (Renvela -) 1,600 mg PO TIDCM [facility] Last Admin: 05/16/17 08:25 Dose: 1,600 mg Simethicone (Mylicon -) 80 mg PO Q4H PRN PRN Reason: GAS Last Admin: 05/14/17 11:53 Dose: 80 mg Warfarin Sodium (Coumadin -) 2 mg PO DAILY@1800 [facility] Last Admin: 05/15/17 18:16 Dose: 2 mg CBC, BMP 05/14/17 06:00 05/14/17 06:00 INR, PTT INR 2.23 (0.82-1.09) H 05/15/17 05:35 Microbiology 05/12/17 21:18 Blood Culture - Preliminary Blood - Peripheral Venous NO GROWTH OBTAINED AFTER 72 HOURS, INCUBATION TO CONTINUE FOR 2 DAYS. 05/12/17 21:18 Blood Culture - Preliminary Blood - Peripheral Venous NO GROWTH OBTAINED AFTER 72 HOURS, INCUBATION TO CONTINUE FOR 2 DAYS. 05/13/17 13:10 Blood Culture - Preliminary Blood - Pre-Dialysis NO GROWTH OBTAINED AFTER 48 HOURS, INCUBATION TO CONTINUE FOR 3 DAYS. Physical Examination Constitutional: Yes: No Distress, comfortable Eyes: Yes: Conjunctiva Clear HENT: Yes: Atraumatic Neck: Yes: Supple/ no jvd Cardiovascular: Yes: Regular Rate and Rhythm Respiratory: Yes: Regular, CTA Bilaterally. Gastrointestinal: Yes: Normal Bowel Sounds, Soft. No: Tenderness lue-- mild echymosis / reddness ---better--resolved neuro--alert and awake assessment and plan clinically stable Stable for discharge Please see discharge summary--- as of yesterday. Problem List - Problems (1) ESRD on dialysis Code(s): N18.6 - END STAGE RENAL DISEASE; Z99.2 - DEPENDENCE ON RENAL DIALYSIS (2) Left arm swelling Code(s): M79.89 - OTHER SPECIFIED SOFT TISSUE DISORDERS (3) Anemia Code(s): D64.9 - ANEMIA, UNSPECIFIED Qualifiers: Chronic kidney disease stage: on chronic dialysis (4) Atrial flutter Code(s): I48.92 - UNSPECIFIED ATRIAL FLUTTER Qualifiers: Atrial flutter type: typical Qualified Code(s): I48.3 - Typical atrial flutter (5) CAD (coronary artery disease) Code(s): I25.10 - ATHSCL HEART DISEASE OF [place] CORONARY ARTERY W/O ANG PCTRS Qualifiers: Coronary Disease-Associated Artery/Lesion type: [place] artery [place] vs. transplanted heart: [place] heart Associated angina: without angina Qualified Code(s): I25.10 - Atherosclerotic heart disease of [place] coronary artery without angina pectoris (6) Cellulitis of arm, left Code(s): L03.114 - CELLULITIS OF LEFT UPPER LIMB (7) Dislocation, shoulder, anterior Code(s): S43.016A - ANTERIOR DISLOCATION OF UNSPECIFIED HUMERUS, INIT ENCNTR
[2017-05-16] MEDS: VITAMIN B COMP W-C 1 EA TABLET PO SCH (09:32)
[2017-05-16 11:38] VITALS: BP 118/63; PULSE 91; TEMP 98.1
--- NOTE | 2017-05-16 12:57 | PN ---
Progress Note (short form) - Note Progress Note: Renal follow up for ESRD on HD Pt seen and examined at the bedside no acute complaints no sob, chest pain no N/V/D shoulder pain and arm swelling improved today Vital Signs Temperature 98.1 F 05/16/17 10:00 Pulse Rate 91 H 05/16/17 10:00 Respiratory Rate 16 05/16/17 10:00 Blood Pressure 118/63 05/16/17 10:00 O2 Sat by Pulse Oximetry (%) 96 05/16/17 09:00 Intake & Output 05/13/17 05/14/17 05/15/17 05/16/17 23:59 23:59 23:59 23:59 Intake Total 750 120 950 50 Output Total 200 Balance 550 120 950 50 Weight 66.315 kg 65.227 kg NAD awake and aelrt RRR CTA soft NT/ND 1+ LE edema CBC, BMP 05/14/17 06:00 05/14/17 06:00 Current Medications Acetaminophen (Tylenol -) 650 mg PO Q6H PRN PRN Reason: FEVER OR PAIN Last Admin: 05/15/17 11:19 Dose: 650 mg Hydrocortisone (Hytone 1% Ointment -) 1 applic TP BID [facility] Last Admin: 05/16/17 09:26 Dose: 1 applic CEFTRIAXONE 1 G/50 ML PREMIX (Ceftriaxone 1 Gm-D5w Bag) 50 mls @ 100 mls/hr IVPB DAILY [facility] Last Admin: 05/16/17 09:23 Dose: 100 mls/hr Insulin Aspart (Novolog Vial Sliding Scale -) 1 vial SQ TIDAC [facility] PRN Reason: Protocol Last Admin: 05/16/17 12:37 Dose: 2 units Insulin Aspart (Novolog Vial Sliding Scale -) 1 vial SQ HS [facility] PRN Reason: Protocol Last Admin: 05/15/17 22:26 Dose: Not Given Levothyroxine Sodium (Synthroid -) 100 mcg PO AM [facility] Last Admin: 05/16/17 06:32 Dose: 100 mcg Metoprolol Succinate (Toprol Xl -) 50 mg PO SuTuThSa@1000 [facility] Last Admin: 05/16/17 09:24 Dose: 50 mg Midodrine (Proamatine -) 10 mg PO MoWeFr@1000 [facility] Last Admin: 05/15/17 10:31 Dose: 10 mg Multivit/Ca Carb/B Cmplx/FA/Prenat (Nephro-Mahendra -) 1 tablet PO DAILY [facility] Last Admin: 05/16/17 09:32 Dose: 1 tablet Multivitamins/Minerals/Vitamin C (Tab-A-Vit -) 1 tab PO DAILY [facility] Last Admin: 05/16/17 09:26 Dose: 1 tab Pantoprazole Sodium (Protonix -) 40 mg PO DAILY [facility] Last Admin: 05/16/17 09:24 Dose: 40 mg Pregabalin (Lyrica -) 75 mg PO DAILY [facility] Last Admin: 05/16/17 09:25 Dose: 75 mg Senna (Senna -) 1 tab PO BID [facility] Last Admin: 05/16/17 09:24 Dose: 1 tab Sertraline HCl (Zoloft -) 50 mg PO DAILY [facility] Last Admin: 05/16/17 09:24 Dose: 50 mg Sevelamer Carbonate (Renvela -) 1,600 mg PO TIDCM [facility] Last Admin: 05/16/17 12:37 Dose: 1,600 mg Simethicone (Mylicon -) 80 mg PO Q4H PRN PRN Reason: GAS Last Admin: 05/14/17 11:53 Dose: 80 mg Warfarin Sodium (Coumadin -) 2 mg PO DAILY@1800 [facility] Last Admin: 05/15/17 18:16 Dose: 2 mg 89 year old woman with PMhx of ESRD on HD, CAD s/p PCI and stenting, CHF, Hypertension, Skin Ca, Hypothyrodism who presented with left arm/access arm swelling and pain. #Access Arm Swelling/Pain joint dislocation noted on X-ray Ortho follow up as outpatient PT pain control arm elevation #ESRD on HD for dialysis tomorrow as outpatient #CKD related Anemia Continue HILARIO with Hd with goal Hgb > 10 #Renal Osteodystrophy Continue Renvela #CHF will UF with HD as tolerated salt and fluid restriction for dialysis tomorrow as outpatient Yahir Cortez DO
== END 2017-05-16 13:49 | DRG 602 ==
LOC: JER 11:07 → JERBED 19:16 → J8W 22:32
PROVIDERS: ADMIT Internal Medicine; ATTEND Internal Medicine
PROC: 5A1D70Z Performance of Urinary Filtration, Intermittent, Less than 6 Hours Per Day (ICD-10-PCS; principal; 2017-05-13)
DX: L03.114 Cellulitis of left upper limb (principal); N18.6 End stage renal disease; I48.92 Unspecified atrial flutter; I13.2 Hypertensive heart and chronic kidney disease with heart failure and with stage 5 chronic kidney disease, or end stage renal disease; I50.32 Chronic diastolic (congestive) heart failure; M25.012 Hemarthrosis, left shoulder; S43.085A Other dislocation of left shoulder joint, initial encounter; I48.91 Unspecified atrial fibrillation; I25.10 Atherosclerotic heart disease of native coronary artery without angina pectoris; E03.9 Hypothyroidism, unspecified; E78.00 Pure hypercholesterolemia, unspecified; F03.90 Unspecified dementia, unspecified severity, without behavioral disturbance, psychotic disturbance, mood disturbance, and anxiety; K21.9 Gastro-esophageal reflux disease without esophagitis; E11.22 Type 2 diabetes mellitus with diabetic chronic kidney disease; I50.84 End stage heart failure; K44.9 Diaphragmatic hernia without obstruction or gangrene; K29.60 Other gastritis without bleeding; M79.89 Other specified soft tissue disorders; D63.8 Anemia in other chronic diseases classified elsewhere; N25.0 Renal osteodystrophy; M25.412 Effusion, left shoulder; E11.42 Type 2 diabetes mellitus with diabetic polyneuropathy; L89.621 Pressure ulcer of left heel, stage 1; L89.611 Pressure ulcer of right heel, stage 1; X58.XXXA Exposure to other specified factors, initial encounter; Z85.828 Personal history of other malignant neoplasm of skin; Y93.89 Activity, other specified; Y92.89 Other specified places as the place of occurrence of the external cause; Z95.5 Presence of coronary angioplasty implant and graft; Z95.810 Presence of automatic (implantable) cardiac defibrillator; Z87.891 Personal history of nicotine dependence; Z99.2 Dependence on renal dialysis; Z87.11 Personal history of peptic ulcer disease
CPT/HCPCS: 36415; 71010-TC; 73030-TC-LT; 80048; 80053; 83735; 83880; 84100; 85025; 85610; 86850; 86900; 86901; 87040; 93005; 93010; 93971; 99283-25; J0885; P9047

== ENCOUNTER 2017-07-15 11:35 | Emergency (ER) | payer OTHER, BC ==
--- NOTE | 2017-07-15 11:54 | PDOC ---
Attending Attestation - HPI HPI: 07/15/17 14:04 The patient is an 89 year old female with a significant PMH of skin CA, ICD, CHF , past CVA, ESRD (dialysis MWF), dementia, diabetes, HTN, hyperlipidemia, and hypothyroidism who presents to the emergency department from the [facility] with bleeding from a wound on her RLE. The patient was given Vitamin K en route which controlled her bleeding. She denies any active bleeding. Allergies: Codeine, Oxycodone HCl PCP: Dr. Oropeza <Malcolm Landin - Last Filed: 07/15/17 14:54> - Resident Resident Name: Tamra Loving - ED Attending Attestation I have performed the following: I have examined & evaluated the patient, The case was reviewed & discussed with the resident, I agree w/resident's findings & plan, Exceptions are as noted - Physicial Exam PE: GENERAL: Awake, alert, and fully oriented, in no acute distress HEAD: No signs of trauma EYES: PERRLA, EOMI, sclera anicteric, conjunctiva clear ENT: Auricles normal inspection, hearing grossly normal, nares patent, oropharynx clear without exudates. Moist mucosa NECK: Normal ROM, supple, no lymphadenopathy, JVD, or masses LUNGS: Breath sounds equal, clear to auscultation bilaterally. No wheezes, and no crackles HEART: Regular rate and rhythm, normal S1 and S2, no murmurs, rubs or gallops ABDOMEN: Soft, nontender, normoactive bowel sounds. No guarding, no rebound. No masses EXTREMITIES: Normal range of motion, no edema. No clubbing or cyanosis. No cords, erythema, or tenderness NEUROLOGICAL: Cranial nerves II through XII grossly intact. Normal speech, normal gait SKIN: Warm, Dry, normal turgor, no rashes. +1cm lesion to R tan, no active bleeding. - Medical Decision Making Pt noted to have intermittent hacking cough, producing white sputum. Initial triage vitals showed 91% O2Sat, however, as per RN, it was recorded incorrectly. Corrected to 98% on RA. Workup otherwise wnl. Will DC home. <Neena Wu - Last Filed: 07/15/17 15:52>
[2017-07-15 11:57] VITALS: TEMP 98.4; BMI 24.1
--- NOTE | 2017-07-15 12:43 | PDOC ---
History of Present Illness <Neena Wu - Last Filed: 07/15/17 16:19> - General History Source: Patient - History of Present Illness Initial Comments: 07/15/17 15:24 89 y.o. ESRD on HD, CAD (s/p PCI + stent), CHF, HTN and Basal Cell CA ( currently undergoing Mohs), HTN, Hypothyroidism, Atrial Fibrillation (on Warfarin) who presents to the ED from [facility] following resolved RLE bleed from recent Moh procedure. At presentation patient is not actively bleeding and has no active medical complaints related to her RLE, however does note 2 day h/o of productive (whitish sputum) cough with no shortness of breath, chest pain. As per EMS, patient given Vitamin K IV en route to hospital and bleeding resolved. Allergy: codeine, oxycodone PMD: Dr. Norma Oropeza <Tamra Loving - Last Filed: 07/16/17 15:49> - General Chief Complaint: Revisit,Wound Recheck Stated Complaint: BLEEDING Time Seen by Provider: 07/15/17 11:41 Past History <Neena Wu - Last Filed: 07/15/17 16:19> - Past Medical History Anemia: No Asthma: No Cancer: Yes (skin) Cardiac Disorders: Yes (STENT, DIFIBRILLATOR) CVA: Yes COPD: No CHF: Yes Dementia: Yes Diabetes: Yes Dialysis: Yes (m,w,f) GI Disorders: Yes (REFLUX) Disorders: Yes (esrd x 5y, low BP @ HD) HTN: Yes Hypercholesterolemia: Yes Liver Disease: No Seizures: No Thyroid Disease: Yes (HYPOTHYROID) - Surgical History Abdominal Surgery: Yes Appendectomy: No Cardiac Surgery: Yes (pacemaker-stent) Cholecystectomy: No Lung Surgery: No Neurologic Surgery: No Orthopedic Surgery: No - Immunization History Immunization Up to Date: Yes - Suicide/Smoking/Psychosocial Hx Smoking Status: No Smoking History: Never smoked Years of Tobacco Use: 50 Have you smoked in the past 12 months: No Number of Cigarettes Smoked Daily: 0 If you are a former smoker, when did you quit?: 2009 Information on smoking cessation initiated: No Hx Alcohol Use: No Drug/Substance Use Hx: No Substance Use Type: None Hx Substance Use Treatment: No <Tamra Loving - Last Filed: 07/16/17 15:49> - Past Medical History Allergies/Adverse Reactions: Allergies Allergy/AdvReac Type Severity Reaction Status Date / Time codeine [Codeine] Allergy Mild Itching Verified 07/15/17 11:56 oxycodone HCl [From Percocet] Allergy Verified 07/15/17 11:56 Home Medications: Ambulatory Orders Levothyroxine [Synthroid -] 100 mcg PO DAILY 10/11/12 Metoprolol Succinate [Toprol XL -] 50 mg PO ASDIR 03/09/15 Acetaminophen [Tylenol .Regular Strength -] 650 mg PO Q6H PRN #0 tablet Multivitamin/Iron/Folic Acid [Daily Vitamin Formula-Iron Tab] 1 each PO DAILY Simethicone [Mylicon -] 80 mg PO Q4H PRN #60 tab.chew 03/23/16 Sertraline HCl [Zoloft -] 50 mg PO DAILY 07/12/16 Warfarin Sodium [Coumadin] 2 mg PO DAILY #30 tablet 08/07/16 Folic Acid/Vit B Complex and C [Cassie-Mahendra Tablet] 0.8 mg PO DAILY 09/28/16 Ipratropium 0.02% Nebulizer [Atrovent 0.02% Nebulizer -] 1 neb NEB TID 09/28/16 Omeprazole 20 mg PO DAILY 05/12/17 Hydrocortisone 1% Cream [Hytone 1% Cream -] 1 applic TP BID 05/13/17 Polyethylene Glycol 3350 [Miralax 119 gm Btl -] 17 gm PO DAILY PRN 05/13/17 Pregabalin [Lyrica] 75 mg PO DAILY 05/13/17 Zolpidem Tartrate [Ambien] 5 mg PO HS 05/13/17 Hydrocortisone 1% Ointment [Hytone 1% Ointment -] 1 applic TP BID tube Insulin Sliding Scale [Novolog Vial Sliding Scale -] 1 vial SQ TIDAC units 06/01 Midodrine HCl [Proamatine -] 10 mg PO MoWeFr@1000 tablet 05/15/17 Sennosides [Senna -] 1 tab PO BID tablet 05/15/17 Vitamin B Comp W-C [Nephro-Mahendra -] 1 tablet PO DAILY tablet 05/15/17 Azithromycin [Zithromax 250mg Tablets -] 250 mg PO DAILY #3 tab MDD 1 tab Azithromycin [Zithromax 250mg Tablets -] 250 mg PO UTDICT #6 tab 07/15/17 Sevelamer Carbonate [Renvela -] 800 mg PO TIDCM 07/15/17 Review of Systems - Review of Systems Constitutional: No: Chills, Fever HEENTM: No: Recent change in vision, Throat Pain Respiratory: Yes: Cough. No: Shortness of Breath, Stridor, Wheezing Cardiac (ROS): No: Chest Pain, Edema, Lightheadedness, Palpitations ABD/GI: No: Constipated, Nausea, Vomiting : No: Burning, Dysuria <Tamra Loving - Last Filed: 07/16/17 15:49> *Physical Exam - Vital Signs Last Vital Signs Temp Pulse Resp BP Pulse Ox 98.4 F 73 22 94/44 98 07/15/17 11:52 07/15/17 15:05 07/15/17 15:05 07/15/17 15:05 07/15/17 15:05 <Neena Wu - Last Filed: 07/15/17 16:19> - Vital Signs Last Vital Signs Temp Pulse Resp BP Pulse Ox 98.4 F 88 20 125/58 89 L 07/15/17 11:52 07/15/17 11:52 07/15/17 11:52 07/15/17 11:52 07/15/17 11:52 - Physical Exam General Appearance: Yes: Nourished, Appropriately Dressed HEENT: positive: EOMI, [place]. negative: TM Bulging, TM Dull, TM Erythema Neck: positive: Trachea midline, Supple Respiratory/Chest: positive: Lungs Clear, Normal Breath Sounds. negative: Decreased Breath Sounds, Crackles, Rales, Rhonchi, Stridor Cardiovascular: positive: S1, S2. negative: Edema, JVD Gastrointestinal/Abdominal: positive: Normal Bowel Sounds, Soft. negative: Distended, Guarding, Hernia, Mass Musculoskeletal: negative: CVA Tenderness (R), CVA Tenderness (L) Extremity: positive: Normal Capillary Refill, Normal Inspection Integumentary: positive: Normal Color, Dry, Warm Neurologic: positive: Fully Oriented, Alert <InderTamra - Last Filed: 07/16/17 15:49> ED Treatment Course - LABORATORY CBC & Chemistry Diagram: 07/15/17 12:46 07/15/17 12:46 - ADDITIONAL ORDERS Additional order review: Laboratory Results 07/15/17 07/15/17 07/15/17 12:46 12:46 12:46 PT with INR 16.70 H INR 1.48 H D Sodium 139 Potassium 4.6 Chloride 101 Carbon Dioxide 26 Anion Gap 12 BUN 38 H Creatinine 3.8 H Creat Clearance w eGFR 11.18 Random Glucose 165 H Calcium 9.6 Total Bilirubin 0.7 D AST 18 ALT 14 Alkaline Phosphatase 314 H Total Protein 7.3 Albumin 3.0 L Blood Type O NEGATIVE Antibody Screen Negative 07/15/17 12:46 RBC 3.44 L MCV 91.7 MCHC 31.3 L RDW 19.8 H MPV 9.0 Neutrophils % No Result Required. Lymphocytes % No Result Required. <Neena Wu - Last Filed: 07/15/17 16:19> - LABORATORY CBC & Chemistry Diagram: 07/15/17 12:46 07/15/17 12:46 <Tamra Loving - Last Filed: 07/16/17 15:49> Medical Decision Making - Medical Decision Making 07/16/17 15:46 89 y.o. female on Warfarin who presents with RLE bleed following Mohs procedure. At presentation patient's bleed resolved following EMS administration of Vitamin K. As patient was initially erroneously noted to be SpO2 89% on RA + h/o productive cough, was evaluated with CXR which showed no infiltrate/consolidation but small effusion c/w prior CXR. Case d/w patient's PMD, Dr. Norma Oropeza, who agreed with POC> Patient discharged to [facility] with return precautions. <Tamra Loving - Last Filed: 07/16/17 15:49> *DC/Admit/Observation/Transfer - Discharge Dispostion Admit: No <Neena Wu - Last Filed: 07/15/17 16:19> <Tamra Loving - Last Filed: 07/16/17 15:49> Diagnosis at time of Disposition: Wound of skin, Cough - Discharge Dispostion Disposition: HOME Condition at time of disposition: Stable - Prescriptions Prescriptions: Azithromycin [Zithromax 250mg Tablets -] 250 mg PO UTDICT #6 tab Azithromycin [Zithromax 250mg Tablets -] 250 mg PO DAILY #3 tab MDD 1 tab - Referrals Referrals: Norma Oropeza MD [Primary Care Provider] - - Patient Instructions Printed Discharge Instructions: DI for Cough -- Adult, DI for Abrasion - Post Discharge Activity
[2017-07-15 13:02] LABS: HEMATOCRIT 31.5 % (32.4-45.2); HEMOGLOBIN 9.9 GM/dL (10.7-15.3); MCH 28.7 pg (25.7-33.7); MCHC 31.3 g/dl (32.0-36.0); MEAN CELL VOLUME 91.7 fl (80-96); PLATELET COUNT 110 K/MM3 (134-434); RBC 3.44 M/mm3 (3.60-5.2); RDW 19.8 % (11.6-15.6); WHITE BLOOD COUNT 6.1 K/mm3 (4.0-10.0)
[2017-07-15 13:13] LABS: INR 1.48 (0.82-1.09); PROTHROMBIN TIME (PATIENT) 16.7 SEC (9.98-11.88)
[2017-07-15 13:35] LABS: ALK PHOS 314 U/L (45-117); ANION GAP 12 (8-16); BILIRUBIN,TOTAL 0.7 mg/dL (0.2-1.0); BLOOD UREA NITROGEN 38 mg/dL (7-18); CALCIUM 9.6 mg/dL (8.5-10.1); CHLORIDE 101 mmol/L (98-107); CO2 26 mmol/L (21-32); CREATININE 3.8 mg/dL (0.55-1.02); GLUCOSE,RANDOM 165 mg/dL (74-106); POTASSIUM 4.6 mmol/L (3.5-5.1); SGOT/AST 18 U/L (15-37); SGPT/ALT 14 U/L (12-78); SODIUM 139 mmol/L (136-145); TOT PROT 7.3 g/dl (6.4-8.2)
[2017-07-15 13:44] LABS: ANISOCYTOSIS 1+; PLATELET ESTIMATE DECREASED
[2017-07-15 20:20] VITALS: BP 98/53; PULSE 78
--- NOTE | 2017-07-16 14:25 | EKG ---
Test Reason : Blood Pressure : / mmHG Vent. 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
== END 2017-07-15 21:43 | disposition home or self-care (01) ==
LOC: JER 11:35
DX: L08.9 Local infection of the skin and subcutaneous tissue, unspecified (principal); R05 Cough; N18.6 End stage renal disease; E03.9 Hypothyroidism, unspecified; I48.91 Unspecified atrial fibrillation; Z79.01 Long term (current) use of anticoagulants
CPT/HCPCS: 36415; 71046-TC-FY; 80053; 85025; 85610; 86850; 86900; 86901; 93005; 93010; 99284-25

== ENCOUNTER 2017-07-17 14:03 | Inpatient (IN) | payer OTHER, BC ==
--- NOTE | 2017-07-17 14:42 | PDOC ---
History of Present Illness - General History Source: Patient, Family Exam Limitations: No Limitations - History of Present Illness Initial Comments: 07/17/17 15:01 The patient is a 89 year old female, with a significant past medical history of skin cancer, CHF, afib on coumadin, past CVA, ESRD (dialysis MWF), dementia, diabetes, gastric ulcer, hypertension, hyperlipidemia, and hypothyroidism, who presents to the emergency department complaining of progressively worsening non productive cough for approx. 2 weeks. The patient states she went and received full dialysis earlier today. However, as per Dr. maldonado, she was put on supplemental oxygen while at dialysis and advised to come to the ED for evaluation of the progressively worsening cough. The patient reports she was recently seen at [facility] this past Monday, June 17 (2 days ago) for evaluation of a right lower extremity wound and discharged which has since stopped bleeding. However, she states her cough was not as bad on Monday as it is today. The patient reports she is a resident at [facility] in [place] and states there was a recent flu going around approx. 2 weeks ago. The patient also reports diffuse abdominal pain secondary to the non productive cough. She denies recent fevers, chills, headache or dizziness. She denies recent nausea, vomit, diarrhea or constipation. She denies recent dysuria, frequency, urgency or hematuria. She denies recent chest pain or palpitations. Allergies: Codeine, Oxycodone HCL Primary Care Physician: Dr. Norma Oropeza GI: Dr. Magana Library Specialist: Dr. Kamara <Rufino Ibanez - Last Filed: 07/17/17 16:30> <Kike Rowley - Last Filed: 07/17/17 19:54> - General Chief Complaint: Respiratory Stated Complaint: PAIN Time Seen by Provider: 07/17/17 14:26 Past History <Rufino Ibanez - Last Filed: 07/17/17 16:30> - Past Medical History Anemia: No Asthma: No Cancer: Yes (skin) Cardiac Disorders: Yes (STENT, DIFIBRILLATOR) CVA: Yes COPD: No CHF: Yes Dementia: Yes Diabetes: Yes Dialysis: Yes (m,w,f) GI Disorders: Yes (REFLUX) Disorders: Yes (esrd x 5y, low BP @ HD) HTN: Yes Hypercholesterolemia: Yes Liver Disease: No Seizures: No Thyroid Disease: Yes (HYPOTHYROID) - Surgical History Abdominal Surgery: Yes Appendectomy: No Cardiac Surgery: Yes (pacemaker-stent) Cholecystectomy: No Lung Surgery: No Neurologic Surgery: No Orthopedic Surgery: No - Immunization History Immunization Up to Date: Yes - Suicide/Smoking/Psychosocial Hx Smoking Status: No Smoking History: Former smoker Years of Tobacco Use: 50 Have you smoked in the past 12 months: No Number of Cigarettes Smoked Daily: 0 If you are a former smoker, when did you quit?: 2009 Information on smoking cessation initiated: No Hx Alcohol Use: No Drug/Substance Use Hx: No Substance Use Type: None Hx Substance Use Treatment: No <Kike Rowley - Last Filed: 07/17/17 19:54> - Past Medical History Allergies/Adverse Reactions: Allergies Allergy/AdvReac Type Severity Reaction Status Date / Time codeine [Codeine] Allergy Mild Itching Verified 07/17/17 14:34 oxycodone HCl [From Percocet] Allergy Verified 07/17/17 14:34 Home Medications: Ambulatory Orders Levothyroxine [Synthroid -] 100 mcg PO DAILY 10/11/12 Metoprolol Succinate [Toprol XL -] 50 mg PO ASDIR 03/09/15 Acetaminophen [Tylenol .Regular Strength -] 650 mg PO Q6H PRN #0 tablet Simethicone [Mylicon -] 80 mg PO Q4H PRN #60 tab.chew 03/23/16 Sertraline HCl [Zoloft -] 50 mg PO DAILY 07/12/16 Warfarin Sodium [Coumadin] 2 mg PO DAILY #30 tablet 08/07/16 Folic Acid/Vit B Complex and C [Cassie-Mahendra Tablet] 0.8 mg PO DAILY 09/28/16 Ipratropium 0.02% Nebulizer [Atrovent 0.02% Nebulizer -] 1 neb NEB TID 09/28/16 Omeprazole 20 mg PO DAILY 05/12/17 Hydrocortisone 1% Cream [Hytone 1% Cream -] 1 applic TP BID 05/13/17 Polyethylene Glycol 3350 [Miralax 119 gm Btl -] 17 gm PO DAILY PRN 05/13/17 Pregabalin [Lyrica] 75 mg PO DAILY 05/13/17 Zolpidem Tartrate [Ambien] 5 mg PO HS 05/13/17 Midodrine HCl [Proamatine -] 10 mg PO MoWeFr@1000 tablet 05/15/17 Azithromycin [Zithromax 250mg Tablets -] 250 mg PO UTDICT #6 tab 07/15/17 Sevelamer Carbonate [Renvela -] 800 mg PO TIDCM 07/15/17 Respiratory Specific PMHX - Complaint Specific PMHX Angina: No <Kike Rowley - Last Filed: 07/17/17 19:54> Review of Systems - Review of Systems Comments:: 07/17/17 15:02 CONSTITUTIONAL: No reported: Fever, Chills, Diaphoresis, Generalized Weakness, Malaise, Loss of Appetite HEENT: No reported: Rhinorrhea, Nasal Congestion, Throat Pain, Throat Swelling, Difficulty Swallowing, Mouth Swelling, Ear Pain, Eye Pain, Visual Changes CARDIOVASCULAR: No reported: Chest Pain, Syncope, Palpitations, Irregular Heart Rate, Lightheadedness, Peripheral Edema RESPIRATORY: Present: (+) Non productive cough. (+) Shortness of breath. No reported: Orthopnea, Wheezing, Stridor, Hemoptysis GASTROINTESTINAL: Present: (+) Diffuse abdominal pain secondary to coughing No reported: Abdominal Distension, Nausea, Vomiting, Diarrhea, Constipation, Melena, Hematochezia GENITOURINARY: No reported: Dysuria, Frequency, Urgency, Hesitancy, Flank Pain, Genital Pain MUSCULOSKELETAL: No reported: Myalgia, Arthralgia, Joint Swelling, Back pain, Neck Pain SKIN: No reported: Rash, Itching, Pallor HEMEATOLOGIC/IMMUNOLOGIC: No reported: Easy Bleeding, Easy Bruising, Lymphadenopathy, Frequent infections ENDOCRINE: No reported: Unexplained Weight Gain, Unexplained Weight Loss, Heat Intolerance , Cold Intolerance NEUROLOGIC: No reported: Headache, Focal Weakness, Paresthesias, Vertigo, Lightheadedness, Unsteady Gait, Seizure, Mental Status Changes, Incontinence PSYCHIATRIC: No reported: Anxiety, Depression <Rufino Ibanez - Last Filed: 07/17/17 16:30> *Physical Exam - Vital Signs Last Vital Signs Temp Pulse Resp BP Pulse Ox 98.4 F 96 H 26 H 124/61 99 07/17/17 14:28 07/17/17 14:28 07/17/17 14:28 07/17/17 14:28 07/17/17 14:54 - Physical Exam Comments: 07/17/17 15:05 GENERAL: The patient is awake, alert, mild respiratory distress. HEAD: Normocephalic, atraumatic. EYES: extraocular movements intact, sclera anicteric, conjunctiva clear. ENT: Normal voice, Moist mucous membranes. NECK: Normal range of motion, supple, +jvd LUNGS: rales diffusely HEART: PM in right chest irregularly irregular, ABDOMEN: Soft, nontender, normoactive bowel sounds. No guarding, no rebound. . No CVA tenderness EXTREMITIES: Normal range of motion, +! pitting edema in b/l LE, neg homans, no calf tenderness, +fistula in LUE with dressing NEUROLOGICAL: No facial assymetry, Normal speech, PSYCH: Normal mood, normal affect. SKIN: two eschars on anterior tan of R leg, without erythema, discharge or bleeding <Rufino Ibanez - Last Filed: 07/17/17 16:30> - Vital Signs Last Vital Signs Temp Pulse Resp BP Pulse Ox 98.4 F 96 H 26 H 124/61 91 L 07/17/17 14:28 07/17/17 14:28 07/17/17 14:28 07/17/17 14:28 07/17/17 14:28 <Kike Rowley - Last Filed: 07/17/17 19:54> Heart Score/ECG Review - ECG Impressions Comment:: 07/17/17 14:58 Twelve-lead EKG was performed and reviewed by me. Irregularly irregular, rate of 91 Occasional PVCs noted Abnormal R wave progression T wave abnormalities in the lateral leads <Kike Rowley - Last Filed: 07/17/17 19:54> ED Treatment Course - LABORATORY CBC & Chemistry Diagram: 07/17/17 14:30 07/17/17 14:30 - RADIOLOGY Radiograph Interpretation: 07/17/17 15:15 EXAM#: TYPE/EXAM: RESULT: [id number] RAD/CHEST X-RAY PORTABLE* Indication: Shortness of breath Comparison study available from 07/15/2017. The heart is enlarged. The aortic arch is tortuous and calcified. Right endovenous pacemaker with a single lead noted. Sheath via the subclavian vein is noted with the tip within the right atrium. A retrocardiac infiltrate is again noted. Superimposed effusion is suspected. Stent within the venous system on the left again noted unchanged. Some kinking is present. Likely left shoulder joint effusion with impression of the humeral head. Elevation of the humeral head on the right is noted suspecting rotator cuff disease. There is demineralization. Little change noted from prior imaging. Reported By: Horacio Cobos MD <Rufino Ibanez - Last Filed: 07/17/17 16:30> - LABORATORY CBC & Chemistry Diagram: 07/17/17 14:30 07/17/17 14:30 - RADIOLOGY Radiology Studies Ordered: Category Date Time Status CHEST X-RAY PORTABLE* [RAD] Stat Radiology 07/17/17 14:39 Ordered <Kike Rowley - Last Filed: 07/17/17 19:54> Medical Decision Making - Medical Decision Making 07/17/17 16:[address] Kamara at 3:55 pm. It Service Technician advised Dr. Guevara to return the call. Call returned and case discussed with Dr. Guevara. Call placed to Dr. Norma Oropeza at 4:04 pm. Case discussed with Dr. Oropeza. <Rufino Ibanez - Last Filed: 07/17/17 16:30> - Medical Decision Making 07/17/17 14:40 89y F hx of ESRD on HD (dialysis MWF, last dialysis this morning), CAD (s/p PCI + stent), CHF, HTN and Basal Cell CA (currently undergoing Mohs), HTN, Hypothyroidism, Atrial Fibrillation (on Warfarin) sent from dialysis for worsening cough. Per family she has beenhaving a nonprodcutive cough for approx 2 weeks without assoiated nasal congestion, body aches, fever/chills. pt endorses mild epigastric pain whens he is coughing. no change in coughing./sob with dialysis. on exam pt with rales b/l +jvd moist cough suspect CHF will start pt on bipap labs sent will r/o pna, chf, acs will dw dr. ruiz and dr. mills 07/17/17 15:49 The patient's chest x-ray appears surprisingly clear, there is a fairly large cardiac silhouette - As the patient's chest x-rays inconsistent with significant failure consider possible pericardial effusion as a cause of her shortness breath and cough. no signficant infiltrate, although pts cough inconsistent with pna w/o any fever, leukocytosis, productive cough Will obtain an echo will discuss with ehr apprentice stylist 07/17/17 16:[address] guevara (cardiologiy) agree with management 07/17/17 17:54 pts echo noted for large opleural effusion - will obtain CT to futher define pt doing well on bipap case dw dr. lujan. agree with admission to med surg Case discussed in detail with admitting physician including history, physical exam and ancillary studies. Admitting physician has assumed care for the patient, will follow all pending diagnostics and will complete the evaluation and treatment. 07/17/17 18:18 CRITICAL CARE DOCUMENTATION: I spent ~35 minutes of Critical Care time, excluding separately billable procedures, involving high complexity decision making to assess, manipulate and support vital system function(s) to treat single or multiple vital organ system failure and/or to prevent further life threatening deterioration of the patient' s condition.07/17/17 19:54 <Kike Rowley - Last Filed: 07/17/17 19:54> *DC/Admit/Observation/Transfer - Attestations Scribe Attestion: 07/17/17 15:04 Documentation prepared by Rufino Ibanez, acting as medical technician for Kike Rowley MD. <Rufino Ibanez - Last Filed: 07/17/17 16:30> - Discharge Dispostion Admit: Yes <Kike Rowley - Last Filed: 07/17/17 19:54> Diagnosis at time of Disposition: Pleural effusion - Discharge Dispostion Condition at time of disposition: Stable
[2017-07-17 15:01] LABS: BASO % 1.1 % (0-2.0); EOS % 0.9 % (0-4.5); HEMATOCRIT 31.1 % (32.4-45.2); HEMOGLOBIN 10.1 GM/dL (10.7-15.3); LYMPH % 14.3 % (8-40); MCH 29.7 pg (25.7-33.7); MCHC 32.6 g/dl (32.0-36.0); MEAN CELL VOLUME 91.2 fl (80-96); MEAN PLT VOLUME 9.9 fl (7.5-11.1); NEUT % 71.7 % (42.8-82.8); PLATELET COUNT 143 K/MM3 (134-434); RBC 3.41 M/mm3 (3.60-5.2); RDW 19.9 % (11.6-15.6)
[2017-07-17 15:11] LABS: INR 1.2 (0.82-1.09); PROTHROMBIN TIME (PATIENT) 13.6 SEC (9.98-11.88)
[2017-07-17 15:17] LABS: ALBUMIN 3.5 g/dl (3.4-5.0); ANION GAP 9 (8-16); BLOOD UREA NITROGEN 25 mg/dL (7-18); CALCIUM 8.1 mg/dL (8.5-10.1); CHLORIDE 99 mmol/L (98-107); CO2 27 mmol/L (21-32); GLUCOSE,RANDOM 184 mg/dL (74-106); POTASSIUM 3.7 mmol/L (3.5-5.1); SODIUM 135 mmol/L (136-145)
[2017-07-17 15:35] LABS: ALK PHOS 325 U/L (45-117); BILIRUBIN,TOTAL 1.1 mg/dL (0.2-1.0); CREATININE 3.1 mg/dL (0.55-1.02); N-TERMINAL BNP 62120.28 pg/ml (5-450); SGOT/AST 17 U/L (15-37); SGPT/ALT 17 U/L (12-78); TOT PROT 8.2 g/dl (6.4-8.2)
--- NOTE | 2017-07-17 16:53 | PN ---
Progress Note (short form) - Note Progress Note: PULMONARY CONSULTATION DICTATED 07/17/17 IMP ACUTE RESPIRATORY FAILURE ? CHF PNEUMONIA AFIB ASHD S/P STENTS CHF S/P ICD DM HTN +TROPONIN ELEVATED LACTATE LEVEL PLAN BIPAP/O2 INHALED BRONCHODILATORS ABX CHEST CT ABG TREND TROPONIN TREND LACTATE DR TORREZ Problem List - Problems (1) Lactate blood increase Code(s): R79.89 - OTHER SPECIFIED ABNORMAL FINDINGS OF BLOOD CHEMISTRY (2) Abdominal pain Code(s): R10.9 - UNSPECIFIED ABDOMINAL PAIN (3) Acute on chronic systolic and diastolic heart failure, NYHA class 3 Code(s): I50.43 - ACUTE ON CHRONIC COMBINED SYSTOLIC AND DIASTOLIC HRT FAIL (4) CAD (coronary artery disease) Code(s): I25.10 - ATHSCL HEART DISEASE OF [place] CORONARY ARTERY W/O ANG PCTRS Qualifiers: (5) Congestive heart failure (CHF) Code(s): I50.9 - HEART FAILURE, UNSPECIFIED (6) Coronary arteriosclerosis in [place] artery Code(s): I25.10 - ATHSCL HEART DISEASE OF [place] CORONARY ARTERY W/O ANG PCTRS (7) Cough Code(s): R05 - COUGH (8) Diabetes Code(s): E11.9 - TYPE 2 DIABETES MELLITUS WITHOUT COMPLICATIONS Qualifiers: (9) ESRD on dialysis Code(s): N18.6 - END STAGE RENAL DISEASE; Z99.2 - DEPENDENCE ON RENAL DIALYSIS (10) Elevated troponin I level Code(s): R74.8 - ABNORMAL LEVELS OF OTHER SERUM ENZYMES (11) End stage kidney disease Code(s): N18.6 - END STAGE RENAL DISEASE (12) HTN (hypertension) Code(s): I10 - ESSENTIAL (PRIMARY) HYPERTENSION Qualifiers: (13) Hyperlipidemia Code(s): E78.5 - HYPERLIPIDEMIA, UNSPECIFIED Qualifiers: (14) Hypothyroidism Code(s): E03.9 - HYPOTHYROIDISM, UNSPECIFIED Qualifiers: (15) Pacemaker Code(s): Z95.0 - PRESENCE OF CARDIAC PACEMAKER (16) Single implantable cardioverter-defibrillator (ICD) in situ Code(s): Z95.810 - PRESENCE OF AUTOMATIC (IMPLANTABLE) CARDIAC DEFIBRILLATOR (17) Acute respiratory failure Code(s): J96.00 - ACUTE RESPIRATORY FAILURE, UNSP W HYPOXIA OR HYPERCAPNIA (18) Acute respiratory failure Code(s): J96.00 - ACUTE RESPIRATORY FAILURE, UNSP W HYPOXIA OR HYPERCAPNIA
[2017-07-17 17:17] LABS: CARBOXYHEMOGLOBIN 1.8 gm% (0.5-2.0)
[2017-07-17 17:21] LABS: ARTERIAL BLD GAS O2 SATURATION 98.1 % (90-98.9); ARTERIAL BLOOD GAS PCO2 49.8 mmHg (35-45); ARTERIAL BLOOD GAS pH 7.34 (7.35-7.45)
[2017-07-17 17:22] LABS: ALLENS TEST POSITIVE; ARTERIAL BLOOD GAS BASE EXCESS 0.4 meq/l (-2-2)
[2017-07-17] MEDS ORDERED: POLYETHYLENE GLYCOL 3350 119 GM BTL PO PRN (18:11)
--- NOTE | 2017-07-17 18:19 | HP ---
Admitting History and Physical - Primary Care Physician PCP: Dariela Milian - Admission Chief Complaint: shortness of breath and cough History of Present Illness: patient 89-year-old female with extensive medical history--- As mentioned below --brought to the emergency room--due to chief complaint as above--for about few days Patient was recently seen in the emergency room for similar symptoms and was discharged. Workup in the emergency room showed--- possible pneumonia and moderate sided pleural effusion. Bedside echo was performed. CT chest also performed Patient seen by me in the emergency room. Well-known to me from previous admissions. Case also discussed with emergency room physician. Family also at bedside. Patient to be admitted to the hospital for further management including antibiotics. patient also seen by ripsawyer Dr. Jurado- In the emergency room -- placed on BiPAP PAST MEDICAL HISTORY: ESRD on dialysis MWF CAD dCHF afib/flutter HTN HLD hypothyroidism peripheral neuropathy GERD, PUD OA DM. Left shoulder--dislocation PAST SURGICAL HISTORY: AICD stent x 2 L arm AV dialysis graft (now thrombosed) L arm AV fistula patent cholecystectomy. 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: Peripheral Neuropathy Cardiovascular: Yes: AFIB (right sided ICD), CAD, CHF, HTN, Hyperlipdemia, Other (S/P PCI/stent, chronic diastolic CHF, right sided ICD) Gastrointestinal: Yes: Constipation, Gastritis, GERD, GI Bleed, Hiatal Hernia, Peptic Ulcer Disease Renal/: Yes: Renal Failure, Hemodialysis Heme/Onc: Yes: Anemia Musculoskeletal: Yes: Osteoarthritis Endocrine: Yes: Diabetes Mellitus, Hypothyroidism - Past Surgical History Past Surgical History: Yes: AICD (right sided), AV Fistula/Graft (LU), Cholecystectomy (lap choly), Stent (1999), Upper Endoscopy - Smoking History Smoking history: Former smoker Have you smoked in the past 12 months: No Aproximately how many cigarettes per day: 0 If you are a former smoker, when did you quit?: 2009 - Alcohol/Substance Use Hx Alcohol Use: No History of Substance Use: reports: None - Social History ADL: Support Services 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 History of Recent Travel: No Home Medications - Allergies Allergies/Adverse Reactions: Allergies Allergy/AdvReac Type Severity Reaction Status Date / Time codeine [Codeine] Allergy Mild Itching Verified 07/17/17 14:34 oxycodone HCl [From Percocet] Allergy Verified 07/17/17 14:34 - Home Medications Home Medications: Ambulatory Orders Levothyroxine [Synthroid -] 100 mcg PO DAILY 10/11/12 Metoprolol Succinate [Toprol XL -] 50 mg PO ASDIR 03/09/15 Acetaminophen [Tylenol .Regular Strength -] 650 mg PO Q6H PRN #0 tablet Simethicone [Mylicon -] 80 mg PO Q4H PRN #60 tab.chew 03/23/16 Sertraline HCl [Zoloft -] 50 mg PO DAILY 07/12/16 Warfarin Sodium [Coumadin] 2 mg PO DAILY #30 tablet 08/07/16 Folic Acid/Vit B Complex and C [Cassie-Mahendra Tablet] 0.8 mg PO DAILY 09/28/16 Ipratropium 0.02% Nebulizer [Atrovent 0.02% Nebulizer -] 1 neb NEB TID 09/28/16 Omeprazole 20 mg PO DAILY 05/12/17 Hydrocortisone 1% Cream [Hytone 1% Cream -] 1 applic TP BID 05/13/17 Polyethylene Glycol 3350 [Miralax 119 gm Btl -] 17 gm PO DAILY PRN 05/13/17 Pregabalin [Lyrica] 75 mg PO DAILY 05/13/17 Zolpidem Tartrate [Ambien] 5 mg PO HS 05/13/17 Midodrine HCl [Proamatine -] 10 mg PO MoWeFr@1000 tablet 05/15/17 Azithromycin [Zithromax 250mg Tablets -] 250 mg PO UTDICT #6 tab 07/15/17 Sevelamer Carbonate [Renvela -] 800 mg PO TIDCM 07/15/17 Family Disease History - Family Disease History Family Disease History: Diabetes: Mother (nonHodgkins lymphoma), CA: Father ( of gastric cancer), Mother, Sister (brast cancer), Other: Brother ( Parkinsons) Review of Systems - Review of Systems Constitutional: reports: Weakness Eyes: reports: No Symptoms Neck: reports: No Symptoms Cardiovascular: reports: Shortness of Breath Respiratory: reports: Cough, SOB Gastrointestinal: reports: No Symptoms Genitourinary: reports: No Symptoms Musculoskeletal: reports: No Symptoms Neurological: reports: No Symptoms Psychiatric: reports: Anxiety (mild anxiety present) Physical Examination Vital Signs: Vital Signs Temperature 98.1 F 07/17/17 17:46 Pulse Rate 82 07/17/17 17:46 Respiratory Rate 20 07/17/17 17:46 Blood Pressure 127/65 07/17/17 17:46 O2 Sat by Pulse Oximetry (%) 100 07/17/17 17:46 Constitutional: Yes: Moderate Distress. No: Mild Distress Eyes: Yes: Conjunctiva Clear Neck: Yes: Supple Respiratory: Yes: Diminished Gastrointestinal: Yes: Soft Edema: No Neurological: Yes: Alert Psychiatric: Yes: Alert Labs: CBC, BMP 07/17/17 14:30 07/17/17 14:30 Imaging - Results Chest X-ray: Report Reviewed Cat Scan: Report Reviewed EKG: Report Reviewed Problem List - Problems (1) Acute respiratory failure Code(s): J96.00 - ACUTE RESPIRATORY FAILURE, UNSP W HYPOXIA OR HYPERCAPNIA (2) Lactate blood increase Code(s): R79.89 - OTHER SPECIFIED ABNORMAL FINDINGS OF BLOOD CHEMISTRY (3) Pleural effusion Code(s): J90 - PLEURAL EFFUSION, NOT ELSEWHERE CLASSIFIED (4) Acute on chronic systolic and diastolic heart failure, NYHA class 3 Code(s): I50.43 - ACUTE ON CHRONIC COMBINED SYSTOLIC AND DIASTOLIC HRT FAIL (5) Atrial flutter Code(s): I48.92 - UNSPECIFIED ATRIAL FLUTTER Qualifiers: Atrial flutter type: typical Qualified Code(s): I48.3 - Typical atrial flutter (6) CAD (coronary artery disease) Code(s): I25.10 - ATHSCL HEART DISEASE OF [place] CORONARY ARTERY W/O ANG PCTRS Qualifiers: (7) Congestive heart failure (CHF) Code(s): I50.9 - HEART FAILURE, UNSPECIFIED (8) Diabetes Code(s): E11.9 - TYPE 2 DIABETES MELLITUS WITHOUT COMPLICATIONS Qualifiers: (9) ESRD on dialysis Code(s): N18.6 - END STAGE RENAL DISEASE; Z99.2 - DEPENDENCE ON RENAL DIALYSIS (10) HTN (hypertension) Code(s): I10 - ESSENTIAL (PRIMARY) HYPERTENSION Qualifiers: (11) Single implantable cardioverter-defibrillator (ICD) in situ Code(s): Z95.810 - PRESENCE OF AUTOMATIC (IMPLANTABLE) CARDIAC DEFIBRILLATOR Assessment/Plan discussed in detail with patient, patient's family was at bedside. Also discussed with emergency room physician As well as ripsawyer BiPAP Antibiotics Nebulizer treatment Continued medications Dialysis as per renal cardiology and renal consults Monitor blood pressure and blood sugar INR is subtherapeutic Extra dose of Coumadin today Monitor INR. Further condition will be guided by clinical course. Overall condition guarded. Discussed in detail With the family. Will follow. Time spent--- in examining/documenting as well as coordinating care--45 minutes.
[2017-07-17] MEDS ORDERED: WARFARIN NA 2 MG TABLET (UD) PO ONE (18:30)
[2017-07-17] MEDS ORDERED: CEFTRIAXONE 1 GM/50 ML BAG ONE (19:01)
[2017-07-17] MEDS ORDERED: AZITHROMYCIN IVPB 250 ML IVPB ONE (19:01)
[2017-07-17] MEDS: CEFTRIAXONE 1 G/50 ML PREMIX 50 ML IVPB SCH (19:08)
[2017-07-17] MEDS ORDERED: WARFARIN NA 1 MG TABLET (FP) ONE (19:11)
[2017-07-17] MEDS: AZITHROMYCIN IVPB 500 MG in DEXTROSE 5%-WATER - 250 ML IVPB SCH (19:22)
--- NOTE | 2017-07-17 19:34 | CONS ---
PULMONARY CONSULTATION DATE OF CONSULTATION: 07/17/2017 REFERRING PHYSICIAN: Norma Oropeza MD HISTORY OF PRESENT ILLNESS: The patient is an 89-year-old white female with past medical history of skin CA, history of congestive heart failure, atrial fibrillation maintained on Coumadin, history of CVA, end-stage renal disease on hemodialysis 3 times weekly, mild dementia, diabetes, gastric ulcer, hypertension, hyperlipidemia, hypothyroidism, who presented to [facility] early today with complaint of 2-week history of increasing shortness of breath and cough. The patient apparently went to dialysis today prior to arrival to the ER. In the ER, she was noted to be having increasing shortness of breath and chest congestion and complaining of cough. She presented to the emergency room with the above. In the ER, she was found to be in moderate respiratory distress. At which time, she was placed on BiPAP. She denies any chest pain, nausea, vomiting, or diaphoresis. Just complains of abdominal pain which she attributes to coughing. She states that the cough is productive of sputum, unsure exactly what color. Denies any hemoptysis. She has a history of smoking, quit approximately 15 years ago. There is no history of occupational exposure to chemicals or fumes. Apparently, she also states that she is a resident at Home, and there is flu going around there in the past couple of weeks. PAST MEDICAL HISTORY: Again includes congestive heart failure, end-stage renal disease on hemodialysis, history of CVA, atrial fibrillation maintained on Coumadin, dementia, diabetes, gastric ulcers, hypertension, hyperlipidemia, and hypothyroidism. REVIEW OF SYSTEMS: Positive shortness of breath, positive cough, positive wheezing. No chest pain. Mild palpitations. Positive abdominal pain. No fever. No chills. MEDICATIONS PRIOR TO ADMISSION: Include Synthroid, Toprol, acetaminophen, multivitamins, simethicone, sertraline, Coumadin, folic acid, Atrovent, omeprazole, hydrocortisone, Lyrica, Ambien, insulin sliding scale, midodrine, senna, vitamin D, Zithromax, and Renvela. PHYSICAL EXAMINATION: General: The patient is an elderly white female, thin, well-developed, awake, alert, on BiPAP, appears comfortable. Vital Signs: She is currently afebrile. Blood pressure is 111/83, respiratory rate is 20, O2 saturation is 100% on BiPAP. HEENT: Exam is normocephalic, atraumatic. Neck: Supple. Heart: Irregular, irregular. S1, S2. Chest: Scattered bilateral wheezes throughout with bibasilar crackles. Abdomen: Soft. Bowel sounds are positive. Extremities: No cyanosis or edema. LABORATORY DATA: WBC is 6.0, hemoglobin 10.1, hematocrit 31.1 with a platelet count of 143,000. INR is 1.12. Chemistry: BUN 25, creatinine 3.1. Lactate level is 2.6. Troponin 0.18. Chest x-ray reveals cardiomegaly. There is a pacemaker in the right hemithorax. A left retrocardiac infiltrate is noted, possible superimposed pleural effusion. IMPRESSION: 1. Acute respiratory failure secondary to possible congestive heart failure. 2. Possible pneumonia, left base. 3. Atrial fibrillation, currently on Coumadin. 4. History of cerebrovascular accident. 5. History of hypertension. 6. Diabetes. 7. Elevated troponin level. 8. Elevated lactate level. PLAN: Continue BiPAP, supplemental O2, chest CT, inhaled bronchodilators, consider antibiotics, possible short course of steroids, check arterial blood gas, hemodialysis as per Renal. Trend troponins. Trend lactate. ARIEL TORREZ M.D. BILLY/[id number]
[2017-07-17] MEDS: ALBUTEROL SO4 2.5/IPRATROPIUM 0.5 INH SOL 3 ML VIAL.NEB. NEB SCH (20:30)
[2017-07-17] MEDS: HEPARIN NA (PORCINE) 5,000 UNITS/ML 1ML VIAL SQ SCH (21:53)
[2017-07-17 23:55] VITALS: BMI 25.4
[2017-07-18 07:03] LABS: INR 1.2 (0.82-1.09); PROTHROMBIN TIME (PATIENT) 13.6 SEC (9.98-11.88)
[2017-07-18] MEDS: ALBUTEROL SO4 2.5/IPRATROPIUM 0.5 INH SOL 3 ML VIAL.NEB. NEB SCH ×4 (07:40→20:45)
[2017-07-18] MEDS: SEVELAMER CARBONATE 800 MG TAB (FP) PO SCH ×3 (08:24→17:24)
[2017-07-18] MEDS ORDERED: PATIENT'S OWN MEDICATION (NON-FORMULARY) (Omeprazole 20 MG) PO SCH (10:00)
--- NOTE | 2017-07-18 10:45 | PN ---
Progress Note (short form) - Note Progress Note: Chief Complaint: Events noted, notes reviewed, reported acute dyspnea, cough non -productive of sputum, denies any chest pain History of Present Illness: Seen and examined on telemetry. Full consult is dictated - Current Medication List Current Medications Albuterol/Ipratropium (Duoneb -) 1 amp NEB RQID [facility] Last Admin: 07/18/17 07:40 Dose: 1 amp Heparin Sodium (Porcine) (Heparin -) 5,000 unit SQ BID [facility] Last Admin: 07/17/17 21:53 Dose: 5,000 unit Azithromycin 500 mg/ Dextrose 250 mls @ 250 mls/hr IVPB DAILY [facility] Last Admin: 07/17/17 19:22 Dose: 250 mls/hr CEFTRIAXONE 1 G/50 ML PREMIX (Ceftriaxone 1 Gm-D5w Bag) 50 mls @ 100 mls/hr IVPB DAILY [facility] Last Admin: 07/17/17 19:08 Dose: 100 mls/hr Metoprolol Succinate (Toprol Xl -) 50 mg PO DAILY [facility] Midodrine (Proamatine -) 10 mg PO MoWeFr@1000 [facility] Pantoprazole Sodium (Protonix -) 20 mg PO DAILY [facility] Polyethylene Glycol (Miralax (For Daily Use) -) 17 gm PO DAILY PRN PRN Reason: CONSTIPATION Pregabalin (Lyrica -) 75 mg PO DAILY [facility] Sertraline HCl (Zoloft -) 50 mg PO DAILY [facility] Sevelamer Carbonate (Renvela -) 800 mg PO TIDCM [facility] Last Admin: 07/18/17 08:24 Dose: 800 mg Simethicone (Mylicon -) 80 mg PO Q4H PRN PRN Reason: GAS Warfarin Sodium (Coumadin -) 2 mg PO DAILY@1800 [facility] Review of Systems Cardiovascular: As noted above Respiratory: denies: reports: Cough and Sputum Production Gastrointestinal: denies: Nausea, Vomiting, Diarrhea, Constipation or Abdominal Discomfort Musculoskeletal: No Symptoms Reported Endocrine: No Symptoms Reported - Objective Vital Signs: Last Vital Signs Temp Pulse Resp BP Pulse Ox 98.1 F 110 H 18 113/52 100 07/18/17 08:15 07/18/17 08:15 07/18/17 08:15 07/18/17 08:15 07/17/17 20:33 Intake & Output 07/15/17 07/16/17 07/17/1707/18/18 23:59 23:59 23:59 23:59 Intake Total 370 90 Output Total 0 Balance 370 90 Weight 130 lb 9.6 oz 130 lb 9.6 oz Neck: Supple Negative JVD No Bruit Cardiovascular: S1 S2 Irregularly Irregular Grade 2/6 LUIS MIGUEL Respiratory: Diminished Bilaterally Gastrointestinal: Soft Benign Normal Bowel Sounds Ext: Edema Dressing in Situ Labs: Troponin, BNP 07/17/17 14:30 Troponin I 0.18 H B-Natriuretic Peptide 30054.28 H CBC, BMP 07/17/17 14:30 07/17/17 14:30 Hepatic Panel Total Bilirubin 1.1 mg/dL (0.2-1.0) H D 07/17/17 14:30 AST 17 U/L (15-37) 07/17/17 14:30 ALT 17 U/L (12-78) 07/17/17 14:30 Alkaline Phosphatase 325 U/L (45-117) H 07/17/17 14:30 Albumin 3.5 g/dl (3.4-5.0) 07/17/17 14:30 INR, PTT INR 1.20 (0.82-1.09) H 07/18/17 06:30 Assessment/Plan ASSESSMENT: 1. Clinical presentation is consistent with acute on chronic class II NYHA classification LV failure, pleural effusion 2. CAD post PCI/stent, Elevated Troponin I related to sub-endocardial ischemia/ demand ischemia, angina pectoris 3. Post prophylactic ICD implant 4. Paroxysmal atrial flutter/atrial fibrillation, [id number] score of 5 on Coumadin therapy, sub-therapeutic INR 5. Severe valve aortic stenosis/aortic regurgitation 6. HTN, intermittent hypotension on Midodrine 7. DM 8. Hypercholesterolemia 9. ESRD on HD with history of thrombosed LUE AVF post placement of HeRO graft left arm and thrombectomy brachial artery 10. Hypothyroidism 11. Anemia and thrombocytopenia PLAN: 1. A/C with Coumadin as per INR, unless it is absolutely contraindicated 2. Continue Toprol XL as ordered 3. Continue Midodrine as ordered 4. HD as per renal service and mobilize additional fluid volume 5. Additional evaluation would be recommended for the above noted severe valve aortic stenosis, including evaluation for possible TAVR, if patient and family are agreeable, although at increased risk in view of advanced age and co- morbidities, outpatient evaluation post resolution of the noted pathology Ayesha Kamara MD
[2017-07-18] MEDS: PREGABALIN 25 MG CAPSULE PO SCH (10:51)
[2017-07-18] MEDS: HEPARIN NA (PORCINE) 5,000 UNITS/ML 1ML VIAL SQ SCH ×2 (10:51→21:38)
[2017-07-18] MEDS: CEFTRIAXONE 1 G/50 ML PREMIX 50 ML IVPB SCH (10:51)
[2017-07-18] MEDS: SERTRALINE HCL 50 MG TABLET (FP) PO SCH (10:52)
[2017-07-18] MEDS: PANTOPRAZOLE 20 MG TABLET (FP) PO SCH (10:52)
--- NOTE | 2017-07-18 10:59 | PN ---
Progress Note, Physician Chief Complaint: appears in mild distress due to congestion, SOB Family at bedside - Current Medication List Current Medications: Active Medications Albuterol/Ipratropium (Duoneb -) 1 amp NEB RQID [facility] Last Admin: 07/18/17 07:40 Dose: 1 amp Heparin Sodium (Porcine) (Heparin -) 5,000 unit SQ BID [facility] Last Admin: 07/18/17 10:51 Dose: 5,000 unit Azithromycin 500 mg/ Dextrose 250 mls @ 250 mls/hr IVPB DAILY [facility] Last Admin: 07/17/17 19:22 Dose: 250 mls/hr CEFTRIAXONE 1 G/50 ML PREMIX (Ceftriaxone 1 Gm-D5w Bag) 50 mls @ 100 mls/hr IVPB DAILY [facility] Last Admin: 07/18/17 10:51 Dose: 100 mls/hr Metoprolol Succinate (Toprol Xl -) 50 mg PO DAILY [facility] Last Admin: 07/18/17 10:52 Dose: 50 mg Midodrine (Proamatine -) 10 mg PO MoWeFr@1000 [facility] Pantoprazole Sodium (Protonix -) 20 mg PO DAILY [facility] Last Admin: 07/18/17 10:52 Dose: 20 mg Polyethylene Glycol (Miralax (For Daily Use) -) 17 gm PO DAILY PRN PRN Reason: CONSTIPATION Pregabalin (Lyrica -) 75 mg PO DAILY [facility] Last Admin: 07/18/17 10:51 Dose: 75 mg Sertraline HCl (Zoloft -) 50 mg PO DAILY [facility] Last Admin: 07/18/17 10:52 Dose: 50 mg Sevelamer Carbonate (Renvela -) 800 mg PO TIDCM [facility] Last Admin: 07/18/17 08:24 Dose: 800 mg Simethicone (Mylicon -) 80 mg PO Q4H PRN PRN Reason: GAS Warfarin Sodium (Coumadin -) 2 mg PO DAILY@1800 [facility] - Objective Vital Signs: Vital Signs Temperature 98.1 F 07/18/17 08:15 Pulse Rate 110 H 07/18/17 08:15 Respiratory Rate 18 07/18/17 08:15 Blood Pressure 113/52 07/18/17 08:15 O2 Sat by Pulse Oximetry (%) 100 07/17/17 20:33 Constitutional: Yes: Mild Distress Cardiovascular: Yes: Pulse Irregular Respiratory: Yes: Diminished, Rales Gastrointestinal: Yes: Normal Bowel Sounds, Soft. No: Distention, Tenderness Extremities: Yes: Other (dressing in right leg) Edema: No Labs: CBC, BMP 07/17/17 14:30 07/17/17 14:30 INR, PTT INR 1.20 (0.82-1.09) H 07/18/17 06:30 Problem List - Problems (1) Acute respiratory failure Code(s): J96.00 - ACUTE RESPIRATORY FAILURE, UNSP W HYPOXIA OR HYPERCAPNIA (2) Lactate blood increase Code(s): R79.89 - OTHER SPECIFIED ABNORMAL FINDINGS OF BLOOD CHEMISTRY (3) Pleural effusion Code(s): J90 - PLEURAL EFFUSION, NOT ELSEWHERE CLASSIFIED (4) Acute on chronic systolic and diastolic heart failure, NYHA class 3 Code(s): I50.43 - ACUTE ON CHRONIC COMBINED SYSTOLIC AND DIASTOLIC HRT FAIL (5) Atrial flutter Code(s): I48.92 - UNSPECIFIED ATRIAL FLUTTER Qualifiers: Atrial flutter type: typical Qualified Code(s): I48.3 - Typical atrial flutter (6) Diabetes Code(s): E11.9 - TYPE 2 DIABETES MELLITUS WITHOUT COMPLICATIONS Qualifiers: (7) ESRD on hemodialysis Code(s): N18.6 - END STAGE RENAL DISEASE; Z99.2 - DEPENDENCE ON RENAL DIALYSIS (8) Elevated troponin I level Code(s): R74.8 - ABNORMAL LEVELS OF OTHER SERUM ENZYMES Assessment/Plan PLAN Lactic acid decreasing Noted Pulmonary eval and recommendation for thoracentesis- discussed with family about the procedure to alleviate her SOB and also for diagnosis Cardiology eval noted Spoke with Renal continue with meds Hold Coumadin in anticipation for thoracentesis iv antibiotics
--- NOTE | 2017-07-18 11:14 | PN ---
Progress Note, Physician History of Present Illness: pulmonary alert,feeling better,but still congested on vm. - Current Medication List Current Medications: Active Medications Albuterol/Ipratropium (Duoneb -) 1 amp NEB RQID [facility] Last Admin: 07/18/17 07:40 Dose: 1 amp Heparin Sodium (Porcine) (Heparin -) 5,000 unit SQ BID [facility] Last Admin: 07/18/17 10:51 Dose: 5,000 unit Azithromycin 500 mg/ Dextrose 250 mls @ 250 mls/hr IVPB DAILY [facility] Last Admin: 07/17/17 19:22 Dose: 250 mls/hr CEFTRIAXONE 1 G/50 ML PREMIX (Ceftriaxone 1 Gm-D5w Bag) 50 mls @ 100 mls/hr IVPB DAILY [facility] Last Admin: 07/18/17 10:51 Dose: 100 mls/hr Metoprolol Succinate (Toprol Xl -) 50 mg PO DAILY [facility] Last Admin: 07/18/17 10:52 Dose: 50 mg Midodrine (Proamatine -) 10 mg PO MoWeFr@1000 [facility] Pantoprazole Sodium (Protonix -) 20 mg PO DAILY [facility] Last Admin: 07/18/17 10:52 Dose: 20 mg Polyethylene Glycol (Miralax (For Daily Use) -) 17 gm PO DAILY PRN PRN Reason: CONSTIPATION Pregabalin (Lyrica -) 75 mg PO DAILY [facility] Last Admin: 07/18/17 10:51 Dose: 75 mg Sertraline HCl (Zoloft -) 50 mg PO DAILY [facility] Last Admin: 07/18/17 10:52 Dose: 50 mg Sevelamer Carbonate (Renvela -) 800 mg PO TIDCM [facility] Last Admin: 07/18/17 08:24 Dose: 800 mg Simethicone (Mylicon -) 80 mg PO Q4H PRN PRN Reason: GAS Warfarin Sodium (Coumadin -) 2 mg PO DAILY@1800 [facility] - Objective Vital Signs: Vital Signs Temperature 98.1 F 07/18/17 08:15 Pulse Rate 110 H 07/18/17 08:15 Respiratory Rate 18 07/18/17 08:15 Blood Pressure 113/52 07/18/17 08:15 O2 Sat by Pulse Oximetry (%) 100 07/17/17 20:33 Constitutional: Yes: Well Nourished, Calm Eyes: Yes: WNL HENT: Yes: WNL Neck: Yes: WNL Cardiovascular: Yes: Pulse Irregular, S1, S2 Respiratory: Yes: Rales, Rhonchi (bilateral rales and rhonchi) Gastrointestinal: Yes: Normal Bowel Sounds, Soft Extremities: Yes: WNL Edema: No Labs: CBC, BMP 07/17/17 14:30 07/17/17 14:30 INR, PTT INR 1.20 (0.82-1.09) H 07/18/17 06:30 Laboratory Tests 07/17/17 15:47 ABG pH 7.34 L ABG pCO2 at Pt Temp 49.8 H ABG pO2 at Pt Temp 122.0 H ABG HCO3 26.0 ABG O2 Sat (Measured) 98.1 O2 Delivery Device Bipap Oxygen Flow Rate 40% - ....Imaging Cat Scan: Report Reviewed, Image Reviewed (moderate left pleural effusion with compressive atelectasis,? underlying infiltrate) Problem List - Problems (1) Lactate blood increase Code(s): R79.89 - OTHER SPECIFIED ABNORMAL FINDINGS OF BLOOD CHEMISTRY (2) Abdominal pain Code(s): R10.9 - UNSPECIFIED ABDOMINAL PAIN (3) Acute on chronic systolic and diastolic heart failure, NYHA class 3 Code(s): I50.43 - ACUTE ON CHRONIC COMBINED SYSTOLIC AND DIASTOLIC HRT FAIL (4) CAD (coronary artery disease) Code(s): I25.10 - ATHSCL HEART DISEASE OF [place] CORONARY ARTERY W/O ANG PCTRS Qualifiers: (5) Congestive heart failure (CHF) Code(s): I50.9 - HEART FAILURE, UNSPECIFIED (6) Coronary arteriosclerosis in [place] artery Code(s): I25.10 - ATHSCL HEART DISEASE OF [place] CORONARY ARTERY W/O ANG PCTRS (7) Cough Code(s): R05 - COUGH (8) Diabetes Code(s): E11.9 - TYPE 2 DIABETES MELLITUS WITHOUT COMPLICATIONS Qualifiers: (9) ESRD on dialysis Code(s): N18.6 - END STAGE RENAL DISEASE; Z99.2 - DEPENDENCE ON RENAL DIALYSIS (10) Elevated troponin I level Code(s): R74.8 - ABNORMAL LEVELS OF OTHER SERUM ENZYMES (11) End stage kidney disease Code(s): N18.6 - END STAGE RENAL DISEASE (12) HTN (hypertension) Code(s): I10 - ESSENTIAL (PRIMARY) HYPERTENSION Qualifiers: (13) Hyperlipidemia Code(s): E78.5 - HYPERLIPIDEMIA, UNSPECIFIED Qualifiers: (14) Hypothyroidism Code(s): E03.9 - HYPOTHYROIDISM, UNSPECIFIED Qualifiers: (15) Pacemaker Code(s): Z95.0 - PRESENCE OF CARDIAC PACEMAKER (16) Single implantable cardioverter-defibrillator (ICD) in situ Code(s): Z95.810 - PRESENCE OF AUTOMATIC (IMPLANTABLE) CARDIAC DEFIBRILLATOR (17) Acute respiratory failure Code(s): J96.00 - ACUTE RESPIRATORY FAILURE, UNSP W HYPOXIA OR HYPERCAPNIA (18) Acute respiratory failure Code(s): J96.00 - ACUTE RESPIRATORY FAILURE, UNSP W HYPOXIA OR HYPERCAPNIA Assessment/Plan IMP ACUTE RESPIRATORY FAILURE IMPROVING ? CHF PNEUMONIA AFIB ASHD S/P STENTS CHF S/P ICD ESRD ON HD DM HTN +TROPONIN ELEVATED LACTATE LEVEL PLAN BIPAP/O2 INHALED BRONCHODILATORS HD PER RENAL ABX TREND TROPONIN TREND LACTATE DIAGNOSTIC THORACENTESIS DR TORREZ Problem List - Problems (1) Lactate blood increase Code(s): R79.89 - OTHER SPECIFIED ABNORMAL FINDINGS OF BLOOD CHEMISTRY (2) Abdominal pain Code(s): R10.9 - UNSPECIFIED ABDOMINAL PAIN (3) Acute on chronic systolic and diastolic heart failure, NYHA class 3 Code(s): I50.43 - ACUTE ON CHRONIC COMBINED SYSTOLIC AND DIASTOLIC HRT FAIL (4) CAD (coronary artery disease) Code(s): I25.10 - ATHSCL HEART DISEASE OF [place] CORONARY ARTERY W/O ANG PCTRS Qualifiers: (5) Congestive heart failure (CHF) Code(s): I50.9 - HEART FAILURE, UNSPECIFIED (6) Coronary arteriosclerosis in [place] artery Code(s): I25.10 - ATHSCL HEART DISEASE OF [place] CORONARY ARTERY W/O ANG PCTRS (7) Cough Code(s): R05 - COUGH (8) Diabetes Code(s): E11.9 - TYPE 2 DIABETES MELLITUS WITHOUT COMPLICATIONS Qualifiers: (9) ESRD on dialysis Code(s): N18.6 - END STAGE RENAL DISEASE; Z99.2 - DEPENDENCE ON RENAL DIALYSIS (10) Elevated troponin I level Code(s): R74.8 - ABNORMAL LEVELS OF OTHER SERUM ENZYMES (11) End stage kidney disease Code(s): N18.6 - END STAGE RENAL DISEASE (12) HTN (hypertension) Code(s): I10 - ESSENTIAL (PRIMARY) HYPERTENSION Qualifiers: (13) Hyperlipidemia Code(s): E78.5 - HYPERLIPIDEMIA, UNSPECIFIED Qualifiers: (14) Hypothyroidism Code(s): E03.9 - HYPOTHYROIDISM, UNSPECIFIED Qualifiers: (15) Pacemaker Code(s): Z95.0 - PRESENCE OF CARDIAC PACEMAKER (16) Single implantable cardioverter-defibrillator (ICD) in situ Code(s): Z95.810 - PRESENCE OF AUTOMATIC (IMPLANTABLE) CARDIAC DEFIBRILLATOR (17) Acute respiratory failure Code(s): J96.00 - ACUTE RESPIRATORY FAILURE, UNSP W HYPOXIA OR HYPERCAPNIA (18) Acute respiratory failure Code(s): J96.00 - ACUTE RESPIRATORY FAILURE, UNSP W HYPOXIA OR HYPERCAPNIA
[2017-07-18] MEDS: AZITHROMYCIN IVPB 500 MG in DEXTROSE 5%-WATER - 250 ML IVPB SCH (11:35)
--- NOTE | 2017-07-18 12:52 | CONSULT ---
Consult - text type - Consultation Consultation Note: Renal Consult for ESRD on HD This is a 89 year old woman with PMhx of ESRD on HD, Hypotension, Afib on A/C, CHF, CAD, Hypothyrodism who presented with cough and sob and found to have a unilateral pleural effusion. Pt last had dialysis yesterday. Pt deneis any CP, Fever, chills, N/V/D. No LE swelling. Pt has been compliant with all dialysis treatments. No DUMONT, confusion. + weakness. PMhx: as above Allergies: Codine, Oxycodone Family Hx: NC Social hx: No T/A/D ROS: as per HPI, all other pertinent ROS negative Home Meds: Home Medications Medication Instructions Recorded Levothyroxine [Synthroid -] 100 mcg PO DAILY 10/11/12 Metoprolol Succinate [Toprol XL -] 50 mg PO ASDIR 03/09/15 Acetaminophen [Tylenol .Regular 650 mg PO Q6H PRN #0 tablet 01/18/16 Strength -] Simethicone [Mylicon -] 80 mg PO Q4H PRN #60 tab.chew 03/23/16 Sertraline HCl [Zoloft -] 50 mg PO DAILY 07/12/16 Warfarin Sodium [Coumadin] 2 mg PO DAILY #30 tablet 08/07/16 Folic Acid/Vit B Complex and C 0.8 mg PO DAILY 09/28/16 [Cassie-Mahendra Tablet] Ipratropium 0.02% Nebulizer 1 neb NEB TID 09/28/16 [Atrovent 0.02% Nebulizer -] Omeprazole 20 mg PO DAILY 05/12/17 Hydrocortisone 1% Cream [Hytone 1% 1 applic TP BID 05/13/17 Cream -] Polyethylene Glycol 3350 [Miralax 17 gm PO DAILY PRN 05/13/17 119 gm Btl -] Pregabalin [Lyrica] 75 mg PO DAILY 05/13/17 Zolpidem Tartrate [Ambien] 5 mg PO HS 05/13/17 Midodrine HCl [Proamatine -] 10 mg PO MoWeFr@1000 tablet 05/15/17 Azithromycin [Zithromax 250mg 250 mg PO UTDICT #6 tab 07/15/17 Tablets -] Sevelamer Carbonate [Renvela -] 800 mg PO TIDCM 07/15/17 Vital Signs Temperature 98.1 F 07/18/17 08:15 Pulse Rate 101 H 07/18/17 11:34 Respiratory Rate 18 07/18/17 08:15 Blood Pressure 113/52 07/18/17 08:15 O2 Sat by Pulse Oximetry (%) 94 L 07/18/17 11:34 Intake & Output 07/15/17 07/16/17 07/17/17 07/18/17 23:59 23:59 23:59 23:59 Intake Total 370 90 Output Total 0 Balance 370 90 Weight 59.239 kg 59.239 kg NAD awake and alert neck supple, MMM tachycardic, irregular Dec BS left lung soft NT/ND No LE edema CBC, BMP 07/17/17 14:30 07/17/17 14:30 Current Medications Albuterol/Ipratropium (Duoneb -) 1 amp NEB RQID [facility] Last Admin: 07/18/17 11:31 Dose: 1 amp Heparin Sodium (Porcine) (Heparin -) 5,000 unit SQ BID [facility] Last Admin: 07/18/17 10:51 Dose: 5,000 unit Azithromycin 500 mg/ Dextrose 250 mls @ 250 mls/hr IVPB DAILY [facility] Last Admin: 07/18/17 11:35 Dose: 250 mls/hr CEFTRIAXONE 1 G/50 ML PREMIX (Ceftriaxone 1 Gm-D5w Bag) 50 mls @ 100 mls/hr IVPB DAILY [facility] Last Admin: 07/18/17 10:51 Dose: 100 mls/hr Metoprolol Succinate (Toprol Xl -) 50 mg PO DAILY [facility] Last Admin: 07/18/17 10:52 Dose: 50 mg Midodrine (Proamatine -) 10 mg PO MoWeFr@1000 [facility] Pantoprazole Sodium (Protonix -) 20 mg PO DAILY [facility] Last Admin: 07/18/17 10:52 Dose: 20 mg Polyethylene Glycol (Miralax (For Daily Use) -) 17 gm PO DAILY PRN PRN Reason: CONSTIPATION Pregabalin (Lyrica -) 75 mg PO DAILY [facility] Last Admin: 07/18/17 10:51 Dose: 75 mg Sertraline HCl (Zoloft -) 50 mg PO DAILY [facility] Last Admin: 07/18/17 10:52 Dose: 50 mg Sevelamer Carbonate (Renvela -) 800 mg PO TIDCM [facility] Last Admin: 07/18/17 12:53 Dose: 800 mg Simethicone (Mylicon -) 80 mg PO Q4H PRN PRN Reason: GAS Warfarin Sodium (Coumadin -) 2 mg PO DAILY@1800 [facility] A/P 89 year old woman with PMhx of ESRD on HD, Hypotension, Afib on A/C, CHF, CAD, Hypothyrodism who presented with cough and sob and found to have a unilateral pleural effusion. #Unilateral Pleural Effusion Pulmonary Consult appericated for Thoracentesis by IR holding Coumadin for now continue supplemental O2 will continue UF with HD as tolerated on Emperic Abx f/u cultures #ESRD on HD s/p dialysis yesterday, no acute indication for HD today unlikley that UF with dialysis will be able to efficently deminish the pleural effusion will continue HD on 3x weekly schedule Renal diet Low salt intake, fluid restriction #Afib on Coumadin holding coumadin for procedure Cardiology following #CKD related Anemia Hgb is at goal will continue HILARIO with HD Thank you Will follow Yahir Cortez DO
--- NOTE | 2017-07-18 14:27 | EKG ---
Test Reason : Blood Pressure : / mmHG Vent. 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
[2017-07-18] MEDS: SIMETHICONE 80 MG TAB.CHEW (FP) PO PRN (15:40)
[2017-07-18 17:14] LABS: PLEURAL FLUID APPEARANCE CLOUDY; PLEURAL FLUID COLOR RED
[2017-07-18 17:15] LABS: PLEURAL FLUID RBC 21621 /mm3
[2017-07-18] MEDS ORDERED: MAG HYDROX/AL HYDROX/SIMETH 30 ML UNIT-DOSE CUP PO ONE (17:15)
[2017-07-18] MEDS ORDERED: SODIUM CHLORIDE 250 ML IV ONE (17:15)
[2017-07-18] MEDS: traMADol HCL 50 MG TABLET PO PRN (17:22)
[2017-07-18] MEDS ORDERED: WARFARIN NA 2 MG TABLET (UD) PO SCH (18:00)
[2017-07-18 20:24] LABS: GLUCOSE,PLEURAL FLUID 206.026; TOTAL PROTEIN,PLEURAL FLUID 2.938
[2017-07-18 21:17] LABS: PLEURAL FLUID NEUTROPHIL 6 %
[2017-07-18 21:22] LABS: PLEURAL FLUID LYMPHOCYTES 20 %; PLEURAL FLUID MACROPHAGES 47 %; PLEURAL FLUID MESOTHELIAL 23 %; PLEURAL FLUID MONOCYTE 4 %
[2017-07-19] MEDS: traMADol HCL 50 MG TABLET PO PRN (00:51)
[2017-07-19] MEDS: SEVELAMER CARBONATE 800 MG TAB (FP) PO SCH ×3 (07:59→17:38)
[2017-07-19] MEDS ORDERED: EPOETIN ALFA 10,000 UNIT/1 ML VIAL IVPUSH ONE (08:00)
[2017-07-19] MEDS: ALBUTEROL SO4 2.5/IPRATROPIUM 0.5 INH SOL 3 ML VIAL.NEB. NEB SCH ×4 (08:05→21:20)
--- NOTE | 2017-07-19 09:22 | PN ---
Progress Note, Physician History of Present Illness: Cough and dyspnea improved post left thoracentesis. - Current Medication List Current Medications: Active Medications Albuterol/Ipratropium (Duoneb -) 1 amp NEB RQID [facility] Last Admin: 07/19/17 08:05 Dose: 1 amp Heparin Sodium (Porcine) (Heparin -) 5,000 unit SQ BID [facility] Last Admin: 07/18/17 21:38 Dose: 5,000 unit Azithromycin 500 mg/ Dextrose 250 mls @ 250 mls/hr IVPB DAILY [facility] Last Admin: 07/18/17 11:35 Dose: 250 mls/hr CEFTRIAXONE 1 G/50 ML PREMIX (Ceftriaxone 1 Gm-D5w Bag) 50 mls @ 100 mls/hr IVPB DAILY [facility] Last Admin: 07/18/17 10:51 Dose: 100 mls/hr Metoprolol Succinate (Toprol Xl -) 50 mg PO DAILY [facility] Last Admin: 07/18/17 10:52 Dose: 50 mg Midodrine (Proamatine -) 10 mg PO MoWeFr@1000 [facility] Pantoprazole Sodium (Protonix -) 20 mg PO DAILY [facility] Last Admin: 07/18/17 10:52 Dose: 20 mg Polyethylene Glycol (Miralax (For Daily Use) -) 17 gm PO DAILY PRN PRN Reason: CONSTIPATION Pregabalin (Lyrica -) 75 mg PO DAILY [facility] Last Admin: 07/18/17 10:51 Dose: 75 mg Sertraline HCl (Zoloft -) 50 mg PO DAILY [facility] Last Admin: 07/18/17 10:52 Dose: 50 mg Sevelamer Carbonate (Renvela -) 800 mg PO TIDCM [facility] Last Admin: 07/19/17 07:59 Dose: 800 mg Simethicone (Mylicon -) 80 mg PO Q4H PRN PRN Reason: GAS Last Admin: 07/18/17 15:40 Dose: 80 mg Tramadol HCl (Ultram -) 50 mg PO Q6H PRN PRN Reason: PAIN LEVEL 6-10 Last Admin: 07/19/17 00:51 Dose: 50 mg Warfarin Sodium (Coumadin -) 2 mg PO DAILY@1800 [facility] - Objective Vital Signs: Vital Signs Temperature 98.1 F 07/19/17 08:03 Pulse Rate 84 07/19/17 08:03 Respiratory Rate 18 07/19/17 08:03 Blood Pressure 90/43 07/19/17 08:03 O2 Sat by Pulse Oximetry (%) 99 07/18/17 21:00 Constitutional: Yes: No Distress, Calm, Thin Neck: Yes: Supple Cardiovascular: Yes: Regular Rate and Rhythm, Murmur (2/6 SM) Respiratory: Yes: Regular, Diminished, On Nasal O2 Gastrointestinal: Yes: Normal Bowel Sounds, Soft Edema: No Labs: CBC, BMP 07/17/17 14:30 07/17/17 14:30 INR, PTT INR 1.20 (0.82-1.09) H 07/18/17 06:30 - ....Imaging EKG: Report Reviewed (Tele: SR) Problem List - Problems (1) Severe calcific aortic valve stenosis Code(s): I35.0 - NONRHEUMATIC AORTIC (VALVE) STENOSIS (2) Pleural effusion Code(s): J90 - PLEURAL EFFUSION, NOT ELSEWHERE CLASSIFIED (3) Acute on chronic systolic and diastolic heart failure, NYHA class 3 Code(s): I50.43 - ACUTE ON CHRONIC COMBINED SYSTOLIC AND DIASTOLIC HRT FAIL (4) CAD (coronary artery disease) Code(s): I25.10 - ATHSCL HEART DISEASE OF [place] CORONARY ARTERY W/O ANG PCTRS Qualifiers: Coronary Disease-Associated Artery/Lesion type: [place] artery [place] vs. transplanted heart: [place] heart Associated angina: without angina Qualified Code(s): I25.10 - Atherosclerotic heart disease of [place] coronary artery without angina pectoris (5) Coronary arteriosclerosis in [place] artery Code(s): I25.10 - ATHSCL HEART DISEASE OF [place] CORONARY ARTERY W/O ANG PCTRS (6) ESRD on dialysis Code(s): N18.6 - END STAGE RENAL DISEASE; Z99.2 - DEPENDENCE ON RENAL DIALYSIS (7) Elevated troponin I level Code(s): R74.8 - ABNORMAL LEVELS OF OTHER SERUM ENZYMES (8) History of percutaneous coronary intervention Code(s): Z98.89 - OTHER SPECIFIED POSTPROCEDURAL STATES * DO NOT USE * (9) Hypothyroidism Code(s): E03.9 - HYPOTHYROIDISM, UNSPECIFIED Qualifiers: Hypothyroidism type: unspecified Qualified Code(s): E03.9 - Hypothyroidism , unspecified (10) Single implantable cardioverter-defibrillator (ICD) in situ Code(s): Z95.810 - PRESENCE OF AUTOMATIC (IMPLANTABLE) CARDIAC DEFIBRILLATOR (11) Subendocardial ischemia Code(s): I24.8 - OTHER FORMS OF ACUTE ISCHEMIC HEART DISEASE Assessment/Plan 07/17/2017 Echo: Severely decreased LV fxn LVEF 30-35%, ICD, normal RV fxn, mild MR, severe TR, mild pulm HTN, mild AR, severe [place] 0.6 cm^2, MG 16 mmHg, large effusion 1. Clinical presentation is consistent with acute on chronic LV systolic failure , pleural effusion post left thoracentesis with tiny apical PTX 2. CAD post PCI/stent, Elevated Troponin I related to subendocardial ischemia/ demand ischemia, angina pectoris 3. Post prophylactic ICD implant 4. Paroxysmal atrial flutter/atrial fibrillation, [id number] score of 5 on Coumadin therapy, subtherapeutic INR 5. Severe low flow/low gradient aortic valve stenosis 6. HTN, intermittent hypotension on Midodrine 7. DM 8. Hypercholesterolemia 9. ESRD on HD with history of thrombosed LUE AVF post placement of HeRO graft left arm and thrombectomy brachial artery 10. Hypothyroidism 11. Anemia PLAN: 1. Resume A/C with Coumadin as per INR 2. Continue Toprol XL 50 qd 3. Continue Midodrine 10 MWF pre HD 4. HD as per renal service and mobilize additional fluid volume 5. Additional evaluation would be recommended for the above noted severe valve aortic stenosis, including evaluation for possible TAVR, if patient and family are agreeable, although at increased risk in view of advanced age and co- morbidities, outpatient evaluation post resolution of the noted pathology 6. DVT and GI prophylaxis 7. F/u fluid studies, serial CXR, BD, empiric abx course, O2 to maintain saO2
[2017-07-19] MEDS: AZITHROMYCIN IVPB 500 MG in DEXTROSE 5%-WATER - 250 ML IVPB SCH (10:18)
[2017-07-19] MEDS: CEFTRIAXONE 1 G/50 ML PREMIX 50 ML IVPB SCH (10:32)
--- NOTE | 2017-07-19 10:52 | PN ---
Progress Note (short form) - Note Progress Note: PULMONARY s/p left thoracentesis with improvement in shortness of breath. Initial pleural fluid analysis consistent with transudate. Nonproductive cough. No fevers or chills. Last Vital Signs Temp Pulse Resp BP Pulse Ox 98.1 F 84 18 90/43 99 07/19/17 08:03 07/19/17 08:03 07/19/17 08:03 07/19/17 08:03 07/18/17 21:00 Gen: NAD at rest Heart: RRR Lung: bibasilar coarse rales Abd: soft, nontender Ext: trace edema CBC, BMP 07/17/17 14:30 07/17/17 14:30 Active Medications Albuterol/Ipratropium (Duoneb -) 1 amp NEB RQID [facility] Last Admin: 07/19/17 08:05 Dose: 1 amp Heparin Sodium (Porcine) (Heparin -) 5,000 unit SQ BID [facility] Last Admin: 07/18/17 21:38 Dose: 5,000 unit Azithromycin 500 mg/ Dextrose 250 mls @ 250 mls/hr IVPB DAILY [facility] Last Admin: 07/19/17 10:18 Dose: 250 mls/hr CEFTRIAXONE 1 G/50 ML PREMIX (Ceftriaxone 1 Gm-D5w Bag) 50 mls @ 100 mls/hr IVPB DAILY [facility] Last Admin: 07/19/17 10:32 Dose: 100 mls/hr Metoprolol Succinate (Toprol Xl -) 50 mg PO DAILY [facility] Last Admin: 07/19/17 10:18 Dose: Not Given Midodrine (Proamatine -) 10 mg PO MoWeFr@1000 [facility] Pantoprazole Sodium (Protonix -) 20 mg PO DAILY [facility] Last Admin: 07/18/17 10:52 Dose: 20 mg Polyethylene Glycol (Miralax (For Daily Use) -) 17 gm PO DAILY PRN PRN Reason: CONSTIPATION Pregabalin (Lyrica -) 75 mg PO DAILY [facility] Last Admin: 07/18/17 10:51 Dose: 75 mg Sertraline HCl (Zoloft -) 50 mg PO DAILY [facility] Last Admin: 07/18/17 10:52 Dose: 50 mg Sevelamer Carbonate (Renvela -) 800 mg PO TIDCM [facility] Last Admin: 07/19/17 07:59 Dose: 800 mg Simethicone (Mylicon -) 80 mg PO Q4H PRN PRN Reason: GAS Last Admin: 07/18/17 15:40 Dose: 80 mg Tramadol HCl (Ultram -) 50 mg PO Q6H PRN PRN Reason: PAIN LEVEL 6-10 Last Admin: 07/19/17 00:51 Dose: 50 mg Warfarin Sodium (Coumadin -) 2 mg PO DAILY@1800 [facility] Acute on Chronic Systolic Heart Failure ESRD on HD Pleural Effusion s/p L thoracentesis - Transudate Paroxysmal Atrial Fibrillation CAD +Troponins likely [place] Ischemia Aortic Stenosis s/p ICD r/o Pneumonia HTN DM Hypothyroidism - f/u pleural fluid cultures and cytology - HD per renal with ultrafiltration - on empiric antibiotics, can d/c if remains afebrile and cultures negative - monitor CXR - rate control - continue anticoagulation
[2017-07-19] MEDS: MIDODRINE HCL 5 MG TABLET PO SCH (11:30)
--- NOTE | 2017-07-19 12:30 | PN ---
Progress Note, Physician Chief Complaint: s/p thoracentesis feels better undergoing HD - Current Medication List Current Medications: Active Medications Albuterol/Ipratropium (Duoneb -) 1 amp NEB RQID [facility] Last Admin: 07/19/17 11:38 Dose: 1 amp Heparin Sodium (Porcine) (Heparin -) 5,000 unit SQ BID [facility] Last Admin: 07/18/17 21:38 Dose: 5,000 unit Azithromycin 500 mg/ Dextrose 250 mls @ 250 mls/hr IVPB DAILY [facility] Last Admin: 07/19/17 10:18 Dose: 250 mls/hr CEFTRIAXONE 1 G/50 ML PREMIX (Ceftriaxone 1 Gm-D5w Bag) 50 mls @ 100 mls/hr IVPB DAILY [facility] Last Admin: 07/19/17 10:32 Dose: 100 mls/hr Metoprolol Succinate (Toprol Xl -) 50 mg PO DAILY [facility] Last Admin: 07/19/17 10:18 Dose: Not Given Midodrine (Proamatine -) 10 mg PO MoWeFr@1000 [facility] Last Admin: 07/19/17 11:30 Dose: 10 mg Pantoprazole Sodium (Protonix -) 20 mg PO DAILY [facility] Last Admin: 07/18/17 10:52 Dose: 20 mg Polyethylene Glycol (Miralax (For Daily Use) -) 17 gm PO DAILY PRN PRN Reason: CONSTIPATION Pregabalin (Lyrica -) 75 mg PO DAILY [facility] Last Admin: 07/18/17 10:51 Dose: 75 mg Sertraline HCl (Zoloft -) 50 mg PO DAILY [facility] Last Admin: 07/18/17 10:52 Dose: 50 mg Sevelamer Carbonate (Renvela -) 800 mg PO TIDCM [facility] Last Admin: 07/19/17 07:59 Dose: 800 mg Simethicone (Mylicon -) 80 mg PO Q4H PRN PRN Reason: GAS Last Admin: 07/18/17 15:40 Dose: 80 mg Tramadol HCl (Ultram -) 50 mg PO Q6H PRN PRN Reason: PAIN LEVEL 6-10 Last Admin: 07/19/17 00:51 Dose: 50 mg Warfarin Sodium (Coumadin -) 2 mg PO DAILY@1800 [facility] - Objective Vital Signs: Vital Signs Temperature 98.1 F 07/19/17 08:03 Pulse Rate 84 07/19/17 08:03 Respiratory Rate 18 07/19/17 08:03 Blood Pressure 90/43 07/19/17 08:03 O2 Sat by Pulse Oximetry (%) 99 07/18/17 21:00 Constitutional: Yes: No Distress Cardiovascular: Yes: Pulse Irregular, Murmur Respiratory: Yes: Diminished Gastrointestinal: Yes: Normal Bowel Sounds, Soft. No: Tenderness Edema: No Labs: CBC, BMP 07/17/17 14:30 07/17/17 14:30 INR, PTT INR 1.20 (0.82-1.09) H 07/18/17 06:30 Problem List - Problems (1) Acute respiratory failure Code(s): J96.00 - ACUTE RESPIRATORY FAILURE, UNSP W HYPOXIA OR HYPERCAPNIA (2) Lactate blood increase Code(s): R79.89 - OTHER SPECIFIED ABNORMAL FINDINGS OF BLOOD CHEMISTRY (3) Pleural effusion Code(s): J90 - PLEURAL EFFUSION, NOT ELSEWHERE CLASSIFIED (4) Acute on chronic systolic and diastolic heart failure, NYHA class 3 Code(s): I50.43 - ACUTE ON CHRONIC COMBINED SYSTOLIC AND DIASTOLIC HRT FAIL (5) Atrial flutter Code(s): I48.92 - UNSPECIFIED ATRIAL FLUTTER Qualifiers: Atrial flutter type: typical Qualified Code(s): I48.3 - Typical atrial flutter (6) Diabetes Code(s): E11.9 - TYPE 2 DIABETES MELLITUS WITHOUT COMPLICATIONS Qualifiers: (7) ESRD on hemodialysis Code(s): N18.6 - END STAGE RENAL DISEASE; Z99.2 - DEPENDENCE ON RENAL DIALYSIS (8) Elevated troponin I level Code(s): R74.8 - ABNORMAL LEVELS OF OTHER SERUM ENZYMES Assessment/Plan PLAN s/p thoracentesis undergoing dialysis continue with meds effusion-- transudate-- awaiting cytology iv antibiotics
--- NOTE | 2017-07-19 13:12 | PN ---
Progress Note (short form) - Note Progress Note: Renal follow up for ESRD on HD Pt seen and examined at the bedside currently getting dialysis BP is low pt is w/o any acute complaints UF as tolerated Vital Signs Temperature 98.8 F 07/19/17 10:10 Pulse Rate 93 H 07/19/17 12:45 Respiratory Rate 18 07/19/17 12:45 Blood Pressure 79/42 07/19/17 12:45 O2 Sat by Pulse Oximetry (%) 99 07/18/17 21:00 Intake & Output 07/16/17 07/17/17 07/18/17 07/19/17 23:59 23:59 23:59 23:59 Intake Total 370 210 350 Output Total 0 Balance 370 210 350 Weight 59.239 kg 59.239 kg 57.969 kg NAD awake and alert irregular dec BS no edema Current Medications Albuterol/Ipratropium (Duoneb -) 1 amp NEB RQID [facility] Last Admin: 07/19/17 11:38 Dose: 1 amp Hydrocortisone (Hytone 1% Cream -) 1 applic TP BID [facility] Azithromycin 500 mg/ Dextrose 250 mls @ 250 mls/hr IVPB DAILY [facility] Last Admin: 07/19/17 10:18 Dose: 250 mls/hr CEFTRIAXONE 1 G/50 ML PREMIX (Ceftriaxone 1 Gm-D5w Bag) 50 mls @ 100 mls/hr IVPB DAILY [facility] Last Admin: 07/19/17 10:32 Dose: 100 mls/hr Metoprolol Succinate (Toprol Xl -) 50 mg PO DAILY [facility] Last Admin: 07/19/17 10:18 Dose: Not Given Midodrine (Proamatine -) 10 mg PO MoWeFr@1000 [facility] Last Admin: 07/19/17 11:30 Dose: 10 mg Pantoprazole Sodium (Protonix -) 20 mg PO DAILY [facility] Last Admin: 07/18/17 10:52 Dose: 20 mg Polyethylene Glycol (Miralax (For Daily Use) -) 17 gm PO DAILY PRN PRN Reason: CONSTIPATION Pregabalin (Lyrica -) 75 mg PO DAILY [facility] Last Admin: 07/18/17 10:51 Dose: 75 mg Sertraline HCl (Zoloft -) 50 mg PO DAILY [facility] Last Admin: 07/18/17 10:52 Dose: 50 mg Sevelamer Carbonate (Renvela -) 800 mg PO TIDCM [facility] Last Admin: 07/19/17 07:59 Dose: 800 mg Simethicone (Mylicon -) 80 mg PO Q4H PRN PRN Reason: GAS Last Admin: 07/18/17 15:40 Dose: 80 mg Tramadol HCl (Ultram -) 50 mg PO Q6H PRN PRN Reason: PAIN LEVEL 6-10 Last Admin: 07/19/17 00:51 Dose: 50 mg Warfarin Sodium (Coumadin -) 2 mg PO DAILY@1800 [facility] 89 year old woman with PMhx of ESRD on HD, Hypotension, Afib on A/C, CHF, CAD, Hypothyrodism who presented with cough and sob and found to have a unilateral pleural effusion. #Unilateral Pleural Effusion s/p thoracentesis f/u cultures continue emperic abx #ESRD on HD HD today UF as tolerated renal diet #Afib on Coumadin Coumadin as per cardiology #CKD related Anemia Hgb is at goal will continue HILARIO with HD Thank you Will follow Yahir Cortez DO
[2017-07-19 13:21] LABS: HEMATOCRIT 27.6 % (32.4-45.2); HEMOGLOBIN 8.8 GM/dL (10.7-15.3); MCH 29.3 pg (25.7-33.7); MCHC 31.8 g/dl (32.0-36.0); MEAN CELL VOLUME 92.1 fl (80-96); MEAN PLT VOLUME 8.7 fl (7.5-11.1); PLATELET COUNT 120 K/MM3 (134-434); RDW 19.8 % (11.6-15.6); WHITE BLOOD COUNT 7.7 K/mm3 (4.0-10.0)
[2017-07-19 13:26] LABS: INR 1.19 (0.82-1.09); PROTHROMBIN TIME (PATIENT) 13.4 SEC (9.98-11.88)
[2017-07-19] MEDS: HYDROCORTISONE 1% TOPICAL CREAM 30 GM TUBE TP SCH ×2 (13:43→21:53)
[2017-07-19 13:45] LABS: ANION GAP 11 (8-16); BLOOD UREA NITROGEN 30 mg/dL (7-18); CALCIUM 8.6 mg/dL (8.5-10.1); CHLORIDE 100 mmol/L (98-107); CO2 26 mmol/L (21-32); GLUCOSE,RANDOM 226 mg/dL (74-106); PHOSPHOROUS 3.1 mg/dL (2.5-4.9); POTASSIUM 3.7 mmol/L (3.5-5.1); SODIUM 137 mmol/L (136-145)
[2017-07-19] MEDS: PREGABALIN 25 MG CAPSULE PO SCH (16:20)
[2017-07-19] MEDS: SERTRALINE HCL 50 MG TABLET (FP) PO SCH (16:20)
[2017-07-19] MEDS: PANTOPRAZOLE 20 MG TABLET (FP) PO SCH (16:21)
[2017-07-19] MEDS: HEPARIN NA (PORCINE) 5,000 UNITS/ML 1ML VIAL SQ SCH (16:24)
[2017-07-19] MEDS ORDERED: WARFARIN NA 2 MG TABLET (UD) PO SCH (18:00)
[2017-07-20 06:37] LABS: HEMATOCRIT 27.1 % (32.4-45.2); HEMOGLOBIN 8.7 GM/dL (10.7-15.3); MCH 29.7 pg (25.7-33.7); MCHC 32.1 g/dl (32.0-36.0); MEAN CELL VOLUME 92.6 fl (80-96); MEAN PLT VOLUME 8.6 fl (7.5-11.1); PLATELET COUNT 124 K/MM3 (134-434); RBC 2.93 M/mm3 (3.60-5.2); WHITE BLOOD COUNT 6.1 K/mm3 (4.0-10.0)
[2017-07-20 06:56] LABS: INR 1.22 (0.82-1.09); PROTHROMBIN TIME (PATIENT) 13.8 SEC (9.98-11.88)
[2017-07-20] MEDS: ALBUTEROL SO4 2.5/IPRATROPIUM 0.5 INH SOL 3 ML VIAL.NEB. NEB SCH ×4 (07:25→20:45)
[2017-07-20] MEDS: SEVELAMER CARBONATE 800 MG TAB (FP) PO SCH ×3 (07:44→17:18)
[2017-07-20] MEDS ORDERED: PT OWN MED DRAWER 7, Y5N ONE (09:09)
[2017-07-20] MEDS: CEFTRIAXONE 1 G/50 ML PREMIX 50 ML IVPB SCH (09:12)
[2017-07-20] MEDS: SERTRALINE HCL 50 MG TABLET (FP) PO SCH (09:12)
[2017-07-20] MEDS: SIMETHICONE 80 MG TAB.CHEW (FP) PO PRN (09:12)
[2017-07-20] MEDS: PREGABALIN 25 MG CAPSULE PO SCH (09:12)
[2017-07-20] MEDS: AZITHROMYCIN IVPB 500 MG in DEXTROSE 5%-WATER - 250 ML IVPB SCH (09:12)
[2017-07-20] MEDS: PANTOPRAZOLE 20 MG TABLET (FP) PO SCH (09:12)
[2017-07-20] MEDS: HYDROCORTISONE 1% TOPICAL CREAM 30 GM TUBE TP SCH ×2 (11:27→22:07)
--- NOTE | 2017-07-20 11:30 | PN ---
Progress Note, Physician Chief Complaint: Events noted Post thoracentesis Receiving PT History of Present Illness: Patient was seen and examined. Awake and alert. Chart was reviewed Denies chest pain or palpitation Generalized weakness Discussed clinical status with family by bedside - Current Medication List Current Medications: Active Medications Albuterol/Ipratropium (Duoneb -) 1 amp NEB RQID [facility] Last Admin: 07/20/17 11:16 Dose: 1 amp Hydrocortisone (Hytone 1% Cream -) 1 applic TP BID [facility] Last Admin: 07/19/17 21:53 Dose: 1 applic Azithromycin 500 mg/ Dextrose 250 mls @ 250 mls/hr IVPB DAILY [facility] Last Admin: 07/20/17 09:12 Dose: 250 mls/hr CEFTRIAXONE 1 G/50 ML PREMIX (Ceftriaxone 1 Gm-D5w Bag) 50 mls @ 100 mls/hr IVPB DAILY [facility] Last Admin: 07/20/17 09:12 Dose: 100 mls/hr Metoprolol Succinate (Toprol Xl -) 50 mg PO DAILY [facility] Last Admin: 07/20/17 09:12 Dose: 50 mg Midodrine (Proamatine -) 10 mg PO MoWeFr@1000 [facility] Last Admin: 07/19/17 11:30 Dose: 10 mg Pantoprazole Sodium (Protonix -) 20 mg PO DAILY [facility] Last Admin: 07/20/17 09:12 Dose: 20 mg Polyethylene Glycol (Miralax (For Daily Use) -) 17 gm PO DAILY PRN PRN Reason: CONSTIPATION Pregabalin (Lyrica -) 75 mg PO DAILY [facility] Last Admin: 07/20/17 09:12 Dose: 75 mg Sertraline HCl (Zoloft -) 50 mg PO DAILY [facility] Last Admin: 07/20/17 09:12 Dose: 50 mg Sevelamer Carbonate (Renvela -) 800 mg PO TIDCM [facility] Last Admin: 07/20/17 07:44 Dose: 800 mg Simethicone (Mylicon -) 80 mg PO Q4H PRN PRN Reason: GAS Last Admin: 07/20/17 09:12 Dose: 80 mg Tramadol HCl (Ultram -) 50 mg PO Q6H PRN PRN Reason: PAIN LEVEL 6-10 Last Admin: 07/19/17 00:51 Dose: 50 mg Warfarin Sodium (Coumadin -) 2 mg PO DAILY@1800 [facility] Last Admin: 07/19/17 17:38 Dose: 2 mg - Objective Vital Signs: Vital Signs Temperature 97.6 F 07/20/17 05:40 Pulse Rate 88 07/20/17 07:25 Respiratory Rate 20 07/20/17 05:40 Blood Pressure 104/41 07/20/17 05:40 O2 Sat by Pulse Oximetry (%) 98 07/20/17 07:25 Eyes: Yes: PERRL HENT: Yes: Atraumatic Neck: Yes: Supple Cardiovascular: Yes: Regular Rate and Rhythm, Murmur (2/6 LUIS MIGUEL), S1, S2 Respiratory: Yes: Diminished Gastrointestinal: Yes: Normal Bowel Sounds, Soft. No: Tenderness Edema: No Additional Findings/Remarks: - Review of Systems Constitutional: denies: Chills, Fever Cardiovascular: denies: Chest Pain, Palpitations, Shortness of Breath Respiratory: denies: Cough, Hemoptysis, Orthopnea, PND, SOB, SOB on Exertion Gastrointestinal: denies: Abdominal Pain, Constipation, Diarrhea, Melena, Nausea , Rectal Bleeding, Vomiting Genitourinary: denies urologic symptoms Neurological: denies: Dizziness, Headache, Seizure, Syncope Labs: CBC, BMP 07/20/17 05:05 07/19/17 12:15 INR, PTT INR 1.22 (0.82-1.09) H 07/20/17 05:05 Problem List - Problems (1) Acute respiratory failure Code(s): J96.00 - ACUTE RESPIRATORY FAILURE, UNSP W HYPOXIA OR HYPERCAPNIA (2) Pleural effusion Code(s): J90 - PLEURAL EFFUSION, NOT ELSEWHERE CLASSIFIED (3) Severe calcific aortic valve stenosis Code(s): I35.0 - NONRHEUMATIC AORTIC (VALVE) STENOSIS (4) AV fistula thrombosis Code(s): T82.868A - THROMBOSIS DUE TO VASCULAR PROSTH DEV/GRFT, INIT Qualifiers: Encounter type: initial encounter Qualified Code(s): T82.868A - Thrombosis due to vascular prosthetic devices, implants and grafts, initial encounter (5) Acute on chronic systolic and diastolic heart failure, NYHA class 3 Code(s): I50.43 - ACUTE ON CHRONIC COMBINED SYSTOLIC AND DIASTOLIC HRT FAIL (6) Anemia Code(s): D64.9 - ANEMIA, UNSPECIFIED Qualifiers: Chronic kidney disease stage: on chronic dialysis (7) Atrial flutter Code(s): I48.92 - UNSPECIFIED ATRIAL FLUTTER Qualifiers: Atrial flutter type: typical Qualified Code(s): I48.3 - Typical atrial flutter (8) CAD (coronary artery disease) Code(s): I25.10 - ATHSCL HEART DISEASE OF [place] CORONARY ARTERY W/O ANG PCTRS Qualifiers: Coronary Disease-Associated Artery/Lesion type: [place] artery [place] vs. transplanted heart: [place] heart Associated angina: without angina Qualified Code(s): I25.10 - Atherosclerotic heart disease of [place] coronary artery without angina pectoris (9) Demand ischemia Code(s): I24.8 - OTHER FORMS OF ACUTE ISCHEMIC HEART DISEASE (10) Diabetes Code(s): E11.9 - TYPE 2 DIABETES MELLITUS WITHOUT COMPLICATIONS Qualifiers: (11) ESRD on hemodialysis Code(s): N18.6 - END STAGE RENAL DISEASE; Z99.2 - DEPENDENCE ON RENAL DIALYSIS (12) End stage kidney disease Code(s): N18.6 - END STAGE RENAL DISEASE (13) GERD (gastroesophageal reflux disease) Code(s): K21.9 - GASTRO-ESOPHAGEAL REFLUX DISEASE WITHOUT ESOPHAGITIS Qualifiers: Esophagitis presence: with esophagitis Qualified Code(s): K21.0 - Gastro- esophageal reflux disease with esophagitis (14) Generalized weakness Code(s): R53.1 - WEAKNESS (15) HTN (hypertension) Code(s): I10 - ESSENTIAL (PRIMARY) HYPERTENSION Qualifiers: (16) History of percutaneous coronary intervention Code(s): Z98.89 - OTHER SPECIFIED POSTPROCEDURAL STATES * DO NOT USE * (17) Hyperlipidemia Code(s): E78.5 - HYPERLIPIDEMIA, UNSPECIFIED Qualifiers: (18) Hypothyroidism Code(s): E03.9 - HYPOTHYROIDISM, UNSPECIFIED Qualifiers: Hypothyroidism type: unspecified Qualified Code(s): E03.9 - Hypothyroidism , unspecified (19) Single implantable cardioverter-defibrillator (ICD) in situ Code(s): Z95.810 - PRESENCE OF AUTOMATIC (IMPLANTABLE) CARDIAC DEFIBRILLATOR Assessment/Plan 1. Clinical presentation is consistent with acute on chronic LV systolic failure , pleural effusion post left thoracentesis with tiny apical pneumothorax 2. CAD post PCI/stent, Elevated Troponin I related to subendocardial ischemia/ demand ischemia, angina pectoris 3. Post prophylactic ICD implantation 4. Paroxysmal atrial flutter/atrial fibrillation, [id number] score of 5 on Coumadin therapy, subtherapeutic INR 5. Severe low flow/low gradient aortic valve stenosis 6. HTN, intermittent hypotension on Midodrine 7. DM 8. Hypercholesterolemia 9. 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 Hypothyroidism 11. Anemia PLAN: 1. Continue Coumadin as per INR 2. Continue Toprol XL 50 qd 3. Continue Midodrine 10 MWF pre HD 4. HD as per renal service 5. TAVR evaluation can be done as outpatient once clinically improved 6. DVT and GI prophylaxis 7. Continue bronchodilator, empiric antibiotic course and O2 8. Follow up pleural fluid studies and pulmonary follow up Further plans are to follow Len Guevara MD
--- NOTE | 2017-07-20 11:34 | PN ---
Progress Note, Physician History of Present Illness: PULMONARY ALERT,OOB-CHAIR, STILL CONGESTED ,+ COUGH. PLEURAL FLUID C/W TRANSUDATE - Current Medication List Current Medications: Active Medications Albuterol/Ipratropium (Duoneb -) 1 amp NEB RQID [facility] Last Admin: 07/20/17 11:16 Dose: 1 amp Hydrocortisone (Hytone 1% Cream -) 1 applic TP BID [facility] Last Admin: 07/20/17 11:27 Dose: 1 applic Azithromycin 500 mg/ Dextrose 250 mls @ 250 mls/hr IVPB DAILY [facility] Last Admin: 07/20/17 09:12 Dose: 250 mls/hr CEFTRIAXONE 1 G/50 ML PREMIX (Ceftriaxone 1 Gm-D5w Bag) 50 mls @ 100 mls/hr IVPB DAILY [facility] Last Admin: 07/20/17 09:12 Dose: 100 mls/hr Metoprolol Succinate (Toprol Xl -) 50 mg PO DAILY [facility] Last Admin: 07/20/17 09:12 Dose: 50 mg Midodrine (Proamatine -) 10 mg PO MoWeFr@1000 [facility] Last Admin: 07/19/17 11:30 Dose: 10 mg Pantoprazole Sodium (Protonix -) 20 mg PO DAILY [facility] Last Admin: 07/20/17 09:12 Dose: 20 mg Polyethylene Glycol (Miralax (For Daily Use) -) 17 gm PO DAILY PRN PRN Reason: CONSTIPATION Pregabalin (Lyrica -) 75 mg PO DAILY [facility] Last Admin: 07/20/17 09:12 Dose: 75 mg Sertraline HCl (Zoloft -) 50 mg PO DAILY [facility] Last Admin: 07/20/17 09:12 Dose: 50 mg Sevelamer Carbonate (Renvela -) 800 mg PO TIDCM [facility] Last Admin: 07/20/17 11:26 Dose: 800 mg Simethicone (Mylicon -) 80 mg PO Q4H PRN PRN Reason: GAS Last Admin: 07/20/17 09:12 Dose: 80 mg Tramadol HCl (Ultram -) 50 mg PO Q6H PRN PRN Reason: PAIN LEVEL 6-10 Last Admin: 07/19/17 00:51 Dose: 50 mg Warfarin Sodium (Coumadin -) 2 mg PO DAILY@1800 [facility] Last Admin: 07/19/17 17:38 Dose: 2 mg - Objective Vital Signs: Vital Signs Temperature 97.6 F 07/20/17 05:40 Pulse Rate 88 07/20/17 07:25 Respiratory Rate 20 07/20/17 05:40 Blood Pressure 104/41 07/20/17 05:40 O2 Sat by Pulse Oximetry (%) 98 07/20/17 07:25 Constitutional: Yes: Well Nourished, Calm Eyes: Yes: WNL HENT: Yes: WNL Neck: Yes: WNL Cardiovascular: Yes: Pulse Irregular, S1, S2 Respiratory: Yes: Rales (BILATERAL COARSE RALES AND RHONCHI), Rhonchi Gastrointestinal: Yes: Normal Bowel Sounds, Soft Extremities: Yes: WNL Edema: No Labs: CBC, BMP 07/20/17 05:05 07/19/17 12:15 INR, PTT INR 1.22 (0.82-1.09) H 07/20/17 05:05 Problem List - Problems (1) Lactate blood increase Code(s): R79.89 - OTHER SPECIFIED ABNORMAL FINDINGS OF BLOOD CHEMISTRY (2) Abdominal pain Code(s): R10.9 - UNSPECIFIED ABDOMINAL PAIN (3) Acute on chronic systolic and diastolic heart failure, NYHA class 3 Code(s): I50.43 - ACUTE ON CHRONIC COMBINED SYSTOLIC AND DIASTOLIC HRT FAIL (4) CAD (coronary artery disease) Code(s): I25.10 - ATHSCL HEART DISEASE OF [place] CORONARY ARTERY W/O ANG PCTRS Qualifiers: Qualified Code(s): I25.10 - Atherosclerotic heart disease of [place] coronary artery without angina pectoris (5) Congestive heart failure (CHF) Code(s): I50.9 - HEART FAILURE, UNSPECIFIED (6) Coronary arteriosclerosis in [place] artery Code(s): I25.10 - ATHSCL HEART DISEASE OF [place] CORONARY ARTERY W/O ANG PCTRS (7) Cough Code(s): R05 - COUGH (8) Diabetes Code(s): E11.9 - TYPE 2 DIABETES MELLITUS WITHOUT COMPLICATIONS Qualifiers: (9) ESRD on dialysis Code(s): N18.6 - END STAGE RENAL DISEASE; Z99.2 - DEPENDENCE ON RENAL DIALYSIS (10) Elevated troponin I level Code(s): R74.8 - ABNORMAL LEVELS OF OTHER SERUM ENZYMES (11) End stage kidney disease Code(s): N18.6 - END STAGE RENAL DISEASE (12) HTN (hypertension) Code(s): I10 - ESSENTIAL (PRIMARY) HYPERTENSION Qualifiers: (13) Hyperlipidemia Code(s): E78.5 - HYPERLIPIDEMIA, UNSPECIFIED Qualifiers: (14) Hypothyroidism Code(s): E03.9 - HYPOTHYROIDISM, UNSPECIFIED Qualifiers: Qualified Code(s): E03.9 - Hypothyroidism, unspecified (15) Pacemaker Code(s): Z95.0 - PRESENCE OF CARDIAC PACEMAKER (16) Single implantable cardioverter-defibrillator (ICD) in situ Code(s): Z95.810 - PRESENCE OF AUTOMATIC (IMPLANTABLE) CARDIAC DEFIBRILLATOR (17) Acute respiratory failure Code(s): J96.00 - ACUTE RESPIRATORY FAILURE, UNSP W HYPOXIA OR HYPERCAPNIA (18) Acute respiratory failure Code(s): J96.00 - ACUTE RESPIRATORY FAILURE, UNSP W HYPOXIA OR HYPERCAPNIA Assessment/Plan IMP ACUTE RESPIRATORY FAILURE IMPROVING CHF PNEUMONIA AFIB ASHD S/P STENTS CHF S/P ICD ESRD ON HD DM HTN +TROPONIN IMPROVING ELEVATED LACTATE LEVEL NORMAL PLAN BIPAP NEEDED/O2 INHALED BRONCHODILATORS HD PER RENAL ABX DR TORREZ Problem List - Problems (1) Lactate blood increase Code(s): R79.89 - OTHER SPECIFIED ABNORMAL FINDINGS OF BLOOD CHEMISTRY (2) Abdominal pain Code(s): R10.9 - UNSPECIFIED ABDOMINAL PAIN (3) Acute on chronic systolic and diastolic heart failure, NYHA class 3 Code(s): I50.43 - ACUTE ON CHRONIC COMBINED SYSTOLIC AND DIASTOLIC HRT FAIL (4) CAD (coronary artery disease) Code(s): I25.10 - ATHSCL HEART DISEASE OF [place] CORONARY ARTERY W/O ANG PCTRS Qualifiers: (5) Congestive heart failure (CHF) Code(s): I50.9 - HEART FAILURE, UNSPECIFIED (6) Coronary arteriosclerosis in [place] artery Code(s): I25.10 - ATHSCL HEART DISEASE OF [place] CORONARY ARTERY W/O ANG PCTRS (7) Cough Code(s): R05 - COUGH (8) Diabetes Code(s): E11.9 - TYPE 2 DIABETES MELLITUS WITHOUT COMPLICATIONS Qualifiers: (9) ESRD on dialysis Code(s): N18.6 - END STAGE RENAL DISEASE; Z99.2 - DEPENDENCE ON RENAL DIALYSIS (10) Elevated troponin I level Code(s): R74.8 - ABNORMAL LEVELS OF OTHER SERUM ENZYMES (11) End stage kidney disease Code(s): N18.6 - END STAGE RENAL DISEASE (12) HTN (hypertension) Code(s): I10 - ESSENTIAL (PRIMARY) HYPERTENSION Qualifiers: (13) Hyperlipidemia Code(s): E78.5 - HYPERLIPIDEMIA, UNSPECIFIED Qualifiers: (14) Hypothyroidism Code(s): E03.9 - HYPOTHYROIDISM, UNSPECIFIED Qualifiers: (15) Pacemaker Code(s): Z95.0 - PRESENCE OF CARDIAC PACEMAKER (16) Single implantable cardioverter-defibrillator (ICD) in situ Code(s): Z95.810 - PRESENCE OF AUTOMATIC (IMPLANTABLE) CARDIAC DEFIBRILLATOR (17) Acute respiratory failure Code(s): J96.00 - ACUTE RESPIRATORY FAILURE, UNSP W HYPOXIA OR HYPERCAPNIA (18) Acute respiratory failure Code(s): J96.00 - ACUTE RESPIRATORY FAILURE, UNSP W HYPOXIA OR HYPERCAPNIA
--- NOTE | 2017-07-20 12:00 | PN ---
Progress Note, Physician Chief Complaint: s/p thoracentesis feels well has cough== productive - Current Medication List Current Medications: Active Medications Albuterol/Ipratropium (Duoneb -) 1 amp NEB RQID [facility] Last Admin: 07/20/17 11:16 Dose: 1 amp Hydrocortisone (Hytone 1% Cream -) 1 applic TP BID [facility] Last Admin: 07/20/17 11:27 Dose: 1 applic Azithromycin 500 mg/ Dextrose 250 mls @ 250 mls/hr IVPB DAILY [facility] Last Admin: 07/20/17 09:12 Dose: 250 mls/hr CEFTRIAXONE 1 G/50 ML PREMIX (Ceftriaxone 1 Gm-D5w Bag) 50 mls @ 100 mls/hr IVPB DAILY [facility] Last Admin: 07/20/17 09:12 Dose: 100 mls/hr Metoprolol Succinate (Toprol Xl -) 50 mg PO DAILY [facility] Last Admin: 07/20/17 09:12 Dose: 50 mg Midodrine (Proamatine -) 10 mg PO MoWeFr@1000 [facility] Last Admin: 07/19/17 11:30 Dose: 10 mg Pantoprazole Sodium (Protonix -) 20 mg PO DAILY [facility] Last Admin: 07/20/17 09:12 Dose: 20 mg Polyethylene Glycol (Miralax (For Daily Use) -) 17 gm PO DAILY PRN PRN Reason: CONSTIPATION Pregabalin (Lyrica -) 75 mg PO DAILY [facility] Last Admin: 07/20/17 09:12 Dose: 75 mg Sertraline HCl (Zoloft -) 50 mg PO DAILY [facility] Last Admin: 07/20/17 09:12 Dose: 50 mg Sevelamer Carbonate (Renvela -) 800 mg PO TIDCM [facility] Last Admin: 07/20/17 11:26 Dose: 800 mg Simethicone (Mylicon -) 80 mg PO Q4H PRN PRN Reason: GAS Last Admin: 07/20/17 09:12 Dose: 80 mg Tramadol HCl (Ultram -) 50 mg PO Q6H PRN PRN Reason: PAIN LEVEL 6-10 Last Admin: 07/19/17 00:51 Dose: 50 mg Warfarin Sodium (Coumadin -) 2 mg PO DAILY@1800 [facility] Last Admin: 07/19/17 17:38 Dose: 2 mg - Objective Vital Signs: Vital Signs Temperature 97.6 F 07/20/17 05:40 Pulse Rate 88 07/20/17 07:25 Respiratory Rate 20 07/20/17 05:40 Blood Pressure 104/41 07/20/17 05:40 O2 Sat by Pulse Oximetry (%) 98 07/20/17 07:25 Constitutional: Yes: No Distress Cardiovascular: Yes: Pulse Irregular, Murmur Respiratory: Yes: Diminished, Rhonchi Gastrointestinal: Yes: Normal Bowel Sounds, Soft. No: Tenderness Extremities: Yes: Other (rt leg dressing) Edema: No Labs: CBC, BMP 07/20/17 05:05 07/19/17 12:15 INR, PTT INR 1.22 (0.82-1.09) H 07/20/17 05:05 Problem List - Problems (1) Acute respiratory failure Code(s): J96.00 - ACUTE RESPIRATORY FAILURE, UNSP W HYPOXIA OR HYPERCAPNIA (2) Lactate blood increase Code(s): R79.89 - OTHER SPECIFIED ABNORMAL FINDINGS OF BLOOD CHEMISTRY (3) Pleural effusion Code(s): J90 - PLEURAL EFFUSION, NOT ELSEWHERE CLASSIFIED (4) Acute on chronic systolic and diastolic heart failure, NYHA class 3 Code(s): I50.43 - ACUTE ON CHRONIC COMBINED SYSTOLIC AND DIASTOLIC HRT FAIL (5) Atrial flutter Code(s): I48.92 - UNSPECIFIED ATRIAL FLUTTER Qualifiers: Atrial flutter type: typical Qualified Code(s): I48.3 - Typical atrial flutter (6) Diabetes Code(s): E11.9 - TYPE 2 DIABETES MELLITUS WITHOUT COMPLICATIONS Qualifiers: (7) ESRD on hemodialysis Code(s): N18.6 - END STAGE RENAL DISEASE; Z99.2 - DEPENDENCE ON RENAL DIALYSIS (8) Elevated troponin I level Code(s): R74.8 - ABNORMAL LEVELS OF OTHER SERUM ENZYMES Assessment/Plan PLAN s/p thoracentesis HD per renal continue with meds effusion-- transudate-- awaiting cytology iv antibiotics for pneumonia increase Warfarin dose-- INR subtherapeutic OOB daily PT eval
[2017-07-20] MEDS: BACITRACIN 15 GM TUBE TOPICAL OINTMENT TP SCH (13:15)
--- NOTE | 2017-07-20 13:54 | PATH ---
Cytology Non-Gynecological Report Patient Name: KATARINA CURRAN [facility]. Rec. #: [id number] /Age/Gender: 1925 (Age: 89) / F Account: [id number] Location: 4 W TELEMETRY U Taken: 07/18/2017 Received: 07/19/2017 Reported: 07/20/2017 Physicians: Андрей Jurado M.D. Specimen(s) Received A: PLEURAL FLUID B: PLEURAL FLUID Clinical History Pleural effusion Final Diagnosis A & B. PLEURAL FLUID, LEFT, THORACENTESIS: SATISFACTORY FOR EVALUATION NO MALIGNANT CELLS IDENTIFIED. MESOTHELIAL CELLS, FEW LYMPHOCYTES AND FEW NEUTROPHILS PRESENT. Electronically Signed Veronica Wagner M.D. Gross Description A. Approximately 50 cc of yellow fluid received fixed in 50% alcohol. Two cytofunnels and one cellblock prepared. B. Approximately 800 cc of yellow fluid received fresh. Two cytofunnels and one cellblock prepared.
--- NOTE | 2017-07-20 15:21 | PN ---
Progress Note (short form) - Note Progress Note: Renal follow up for ESRD on HD Pt seen and examined at the bedside no acute complaints sob is improved no chest pain last dialysis is yesterday Vital Signs Temperature 98.7 F 07/20/17 15:00 Pulse Rate 93 H 07/20/17 15:00 Respiratory Rate 20 07/20/17 15:00 Blood Pressure 115/47 07/20/17 15:00 O2 Sat by Pulse Oximetry (%) 95 07/20/17 09:00 Intake & Output 07/17/17 07/18/17 07/19/17 07/20/17 23:59 23:59 23:59 23:59 Intake Total 370 210 710 550 Output Total 0 Balance 370 210 710 550 Weight 59.239 kg 59.239 kg 57.969 kg 57.062 kg NAD awake and alert no LE edema CBC, BMP 07/20/17 05:05 07/19/17 12:15 Current Medications Albuterol Sulfate (Ventolin 0.083% Nebulizer Soln -) 1 amp NEB Q4H PRN PRN Reason: SHORT OF BREATH/WHEEZING Albuterol/Ipratropium (Duoneb -) 1 amp NEB RQID [facility] Last Admin: 07/20/17 11:16 Dose: 1 amp Bacitracin (Bacitracin -) 1 applic TP DAILY [facility] Last Admin: 07/20/17 13:15 Dose: 1 applic Hydrocortisone (Hytone 1% Cream -) 1 applic TP BID [facility] Last Admin: 07/20/17 11:27 Dose: 1 applic Azithromycin 500 mg/ Dextrose 250 mls @ 250 mls/hr IVPB DAILY [facility] Last Admin: 07/20/17 09:12 Dose: 250 mls/hr CEFTRIAXONE 1 G/50 ML PREMIX (Ceftriaxone 1 Gm-D5w Bag) 50 mls @ 100 mls/hr IVPB DAILY [facility] Last Admin: 07/20/17 09:12 Dose: 100 mls/hr Metoprolol Succinate (Toprol Xl -) 50 mg PO DAILY [facility] Last Admin: 07/20/17 09:12 Dose: 50 mg Midodrine (Proamatine -) 10 mg PO MoWeFr@1000 [facility] Last Admin: 07/19/17 11:30 Dose: 10 mg Pantoprazole Sodium (Protonix -) 20 mg PO DAILY [facility] Last Admin: 07/20/17 09:12 Dose: 20 mg Polyethylene Glycol (Miralax (For Daily Use) -) 17 gm PO DAILY PRN PRN Reason: CONSTIPATION Pregabalin (Lyrica -) 75 mg PO DAILY [facility] Last Admin: 07/20/17 09:12 Dose: 75 mg Sertraline HCl (Zoloft -) 50 mg PO DAILY [facility] Last Admin: 07/20/17 09:12 Dose: 50 mg Sevelamer Carbonate (Renvela -) 800 mg PO TIDCM [facility] Last Admin: 07/20/17 11:26 Dose: 800 mg Simethicone (Mylicon -) 80 mg PO Q4H PRN PRN Reason: GAS Last Admin: 07/20/17 09:12 Dose: 80 mg Tramadol HCl (Ultram -) 50 mg PO Q6H PRN PRN Reason: PAIN LEVEL 6-10 Last Admin: 07/19/17 00:51 Dose: 50 mg Warfarin Sodium (Coumadin -) 3 mg PO DAILY@1800 [facility] 89 year old woman with PMhx of ESRD on HD, Hypotension, Afib on A/C, CHF, CAD, Hypothyrodism who presented with cough and sob and found to have a unilateral pleural effusion. #Unilateral Pleural Effusion s/p thoracentesis appers to be transudative cultures negative will continue UF with HD #ESRD on HD no acute indication for SHIFT STACKER today next dialysis tomorrow with UF as tolerated #Afib on Coumadin Coumadin as per cardiology #CKD related Anemia Hgb is at goal will continue HILARIO with HD Thank you Will follow Yahir Cortez DO
[2017-07-20] MEDS: WARFARIN NA 3 MG TABLET PO SCH (17:18)
[2017-07-21 00:07] LABS: HBSAG SCREEN Negative (Negative); HEP A AB, IGM Negative (Negative); HEP B CORE AB, TOT Negative (Negative)
[2017-07-21] MEDS: ALBUTEROL SO4 0.083% IH SOL 2.5 MG/3 ML VIAL.NEB. NEB PRN (06:04)
[2017-07-21] MEDS ORDERED: PT OWN MED DRAWER 7, Y5N ONE (06:11)
[2017-07-21] MEDS: MIDODRINE HCL 5 MG TABLET PO SCH ×2 (06:35→11:29)
[2017-07-21] MEDS ORDERED: SODIUM CHLORIDE 250 ML IV PRN (06:49)
[2017-07-21 07:08] LABS: HEMATOCRIT 29.6 % (32.4-45.2); HEMOGLOBIN 9.3 GM/dL (10.7-15.3); MCH 29.4 pg (25.7-33.7); MCHC 31.4 g/dl (32.0-36.0); MEAN CELL VOLUME 93.6 fl (80-96); MEAN PLT VOLUME 9.4 fl (7.5-11.1); PLATELET COUNT 149 K/MM3 (134-434); RBC 3.17 M/mm3 (3.60-5.2); RDW 20.4 % (11.6-15.6); WHITE BLOOD COUNT 6.4 K/mm3 (4.0-10.0)
[2017-07-21 07:11] LABS: INR 1.22 (0.82-1.09); PROTHROMBIN TIME (PATIENT) 13.8 SEC (9.98-11.88)
[2017-07-21 07:18] LABS: ANION GAP 11 (8-16); BLOOD UREA NITROGEN 27 mg/dL (7-18); CALCIUM 8.8 mg/dL (8.5-10.1); CHLORIDE 99 mmol/L (98-107); CO2 28 mmol/L (21-32); CREATININE 4.6 mg/dL (0.55-1.02); GLUCOSE,RANDOM 133 mg/dL (74-106); PHOSPHOROUS 3.9 mg/dL (2.5-4.9); POTASSIUM 4.1 mmol/L (3.5-5.1); SODIUM 138 mmol/L (136-145)
[2017-07-21] MEDS: ALBUTEROL SO4 2.5/IPRATROPIUM 0.5 INH SOL 3 ML VIAL.NEB. NEB SCH ×4 (07:36→20:53)
[2017-07-21] MEDS ORDERED: EPOETIN ALFA 10,000 UNIT/1 ML VIAL IVPUSH ONE (08:00)
[2017-07-21] MEDS: SEVELAMER CARBONATE 800 MG TAB (FP) PO SCH ×3 (08:46→18:02)
--- NOTE | 2017-07-21 11:03 | PN ---
Progress Note, Physician History of Present Illness: patient seen and examined. Currently being dialyzed Comfortable/ events noted and chart reviewed. - Current Medication List Current Medications: Active Medications Albuterol Sulfate (Ventolin 0.083% Nebulizer Soln -) 1 amp NEB Q4H PRN PRN Reason: SHORT OF BREATH/WHEEZING Last Admin: 07/21/17 06:04 Dose: 1 amp Albuterol/Ipratropium (Duoneb -) 1 amp NEB RQID [facility] Last Admin: 07/21/17 07:36 Dose: Not Given Bacitracin (Bacitracin -) 1 applic TP DAILY [facility] Last Admin: 07/20/17 13:15 Dose: 1 applic Hydrocortisone (Hytone 1% Cream -) 1 applic TP BID [facility] Last Admin: 07/20/17 22:07 Dose: Not Given Azithromycin 500 mg/ Dextrose 250 mls @ 250 mls/hr IVPB DAILY [facility] Last Admin: 07/20/17 09:12 Dose: 250 mls/hr CEFTRIAXONE 1 G/50 ML PREMIX (Ceftriaxone 1 Gm-D5w Bag) 50 mls @ 100 mls/hr IVPB DAILY [facility] Last Admin: 07/20/17 09:12 Dose: 100 mls/hr Sodium Chloride (Normal Saline -) 250 mls @ 3,000 mls/hr IV PRN PRN PRN Reason: Hypotension Metoprolol Succinate (Toprol Xl -) 50 mg PO DAILY [facility] Last Admin: 07/20/17 09:12 Dose: 50 mg Midodrine (Proamatine -) 10 mg PO MoWeFr@1000 [facility] Last Admin: 07/21/17 06:35 Dose: 10 mg Pantoprazole Sodium (Protonix -) 20 mg PO DAILY [facility] Last Admin: 07/20/17 09:12 Dose: 20 mg Polyethylene Glycol (Miralax (For Daily Use) -) 17 gm PO DAILY PRN PRN Reason: CONSTIPATION Pregabalin (Lyrica -) 75 mg PO DAILY [facility] Last Admin: 07/20/17 09:12 Dose: 75 mg Sertraline HCl (Zoloft -) 50 mg PO DAILY [facility] Last Admin: 07/20/17 09:12 Dose: 50 mg Sevelamer Carbonate (Renvela -) 800 mg PO TIDCM [facility] Last Admin: 07/21/17 08:46 Dose: Not Given Simethicone (Mylicon -) 80 mg PO Q4H PRN PRN Reason: GAS Last Admin: 07/20/17 09:12 Dose: 80 mg Tramadol HCl (Ultram -) 50 mg PO Q6H PRN PRN Reason: PAIN LEVEL 6-10 Last Admin: 07/19/17 00:51 Dose: 50 mg Warfarin Sodium (Coumadin -) 3 mg PO DAILY@1800 [facility] Last Admin: 07/20/17 17:18 Dose: 3 mg Warfarin Sodium (Coumadin -) 2.5 mg PO ONCE@1800 [facility] Stop: 07/21/17 18:01 - Objective Vital Signs: Vital Signs Temperature 98 F 07/21/17 10:00 Pulse Rate 91 H 07/21/17 10:50 Respiratory Rate 18 07/21/17 10:50 Blood Pressure 95/55 07/21/17 10:50 O2 Sat by Pulse Oximetry (%) 98 07/20/17 22:00 Constitutional: Yes: No Distress, Calm Eyes: Yes: Conjunctiva Clear Neck: Yes: Supple Cardiovascular: Yes: Pulse Irregular Respiratory: Yes: Diminished Gastrointestinal: Yes: Soft Edema: No Neurological: Yes: Alert Labs: CBC, BMP 07/21/17 06:15 07/21/17 06:15 INR, PTT INR 1.22 (0.82-1.09) H 07/21/17 06:15 Problem List - Problems (1) Acute respiratory failure Code(s): J96.00 - ACUTE RESPIRATORY FAILURE, UNSP W HYPOXIA OR HYPERCAPNIA (2) Lactate blood increase Code(s): R79.89 - OTHER SPECIFIED ABNORMAL FINDINGS OF BLOOD CHEMISTRY (3) Pleural effusion Code(s): J90 - PLEURAL EFFUSION, NOT ELSEWHERE CLASSIFIED (4) Acute on chronic systolic and diastolic heart failure, NYHA class 3 Code(s): I50.43 - ACUTE ON CHRONIC COMBINED SYSTOLIC AND DIASTOLIC HRT FAIL (5) Atrial flutter Code(s): I48.92 - UNSPECIFIED ATRIAL FLUTTER Qualifiers: Atrial flutter type: typical Qualified Code(s): I48.3 - Typical atrial flutter (6) CAD (coronary artery disease) Code(s): I25.10 - ATHSCL HEART DISEASE OF [place] CORONARY ARTERY W/O ANG PCTRS Qualifiers: Coronary Disease-Associated Artery/Lesion type: [place] artery [place] vs. transplanted heart: [place] heart Associated angina: without angina Qualified Code(s): I25.10 - Atherosclerotic heart disease of [place] coronary artery without angina pectoris (7) Congestive heart failure (CHF) Code(s): I50.9 - HEART FAILURE, UNSPECIFIED (8) Diabetes Code(s): E11.9 - TYPE 2 DIABETES MELLITUS WITHOUT COMPLICATIONS Qualifiers: (9) ESRD on dialysis Code(s): N18.6 - END STAGE RENAL DISEASE; Z99.2 - DEPENDENCE ON RENAL DIALYSIS (10) HTN (hypertension) Code(s): I10 - ESSENTIAL (PRIMARY) HYPERTENSION Qualifiers: (11) Single implantable cardioverter-defibrillator (ICD) in situ Code(s): Z95.810 - PRESENCE OF AUTOMATIC (IMPLANTABLE) CARDIAC DEFIBRILLATOR Assessment/Plan Clinically better status post paracentesis Hemodialysis per renal Continue present care overall condition remains guarded I discussed in detail with the patient family They understand . Will follow Physical therapy. Will give extra dose of Coumadin today
--- NOTE | 2017-07-21 11:10 | PN ---
Progress Note, Physician History of Present Illness: pulmonary alert,feeling better,dyspnea improving - Current Medication List Current Medications: Active Medications Albuterol Sulfate (Ventolin 0.083% Nebulizer Soln -) 1 amp NEB Q4H PRN PRN Reason: SHORT OF BREATH/WHEEZING Last Admin: 07/21/17 06:04 Dose: 1 amp Albuterol/Ipratropium (Duoneb -) 1 amp NEB RQID [facility] Last Admin: 07/21/17 07:36 Dose: Not Given Bacitracin (Bacitracin -) 1 applic TP DAILY [facility] Last Admin: 07/20/17 13:15 Dose: 1 applic Hydrocortisone (Hytone 1% Cream -) 1 applic TP BID [facility] Last Admin: 07/20/17 22:07 Dose: Not Given Azithromycin 500 mg/ Dextrose 250 mls @ 250 mls/hr IVPB DAILY [facility] Last Admin: 07/20/17 09:12 Dose: 250 mls/hr CEFTRIAXONE 1 G/50 ML PREMIX (Ceftriaxone 1 Gm-D5w Bag) 50 mls @ 100 mls/hr IVPB DAILY [facility] Last Admin: 07/20/17 09:12 Dose: 100 mls/hr Sodium Chloride (Normal Saline -) 250 mls @ 3,000 mls/hr IV PRN PRN PRN Reason: Hypotension Metoprolol Succinate (Toprol Xl -) 50 mg PO DAILY [facility] [place] Last Admin: 07/20/17 09:12 Dose: 50 mg Midodrine (Proamatine -) 10 mg PO MoWeFr@1000 [facility] [place] Last Admin: 07/21/17 06:35 Dose: 10 mg Pantoprazole Sodium (Protonix -) 20 mg PO DAILY [facility] [place] Last Admin: 07/20/17 09:12 Dose: 20 mg Polyethylene Glycol (Miralax (For Daily Use) -) 17 gm PO DAILY PRN PRN Reason: CONSTIPATION Pregabalin (Lyrica -) 75 mg PO DAILY [facility] [place] Last Admin: 07/20/17 09:12 Dose: 75 mg Sertraline HCl (Zoloft -) 50 mg PO DAILY [facility] [place] Last Admin: 07/20/17 09:12 Dose: 50 mg Sevelamer Carbonate (Renvela -) 800 mg PO TIDCM [facility] [place] Last Admin: 07/21/17 08:46 Dose: Not Given Simethicone (Mylicon -) 80 mg PO Q4H PRN PRN Reason: GAS Last Admin: 07/20/17 09:12 Dose: 80 mg Tramadol HCl (Ultram -) 50 mg PO Q6H PRN PRN Reason: PAIN LEVEL 6-10 Last Admin: 07/19/17 00:51 Dose: 50 mg Warfarin Sodium (Coumadin -) 3 mg PO DAILY@1800 [facility] Last Admin: 07/20/17 17:18 Dose: 3 mg Warfarin Sodium (Coumadin -) 2.5 mg PO ONCE@1800 ONE Stop: 07/21/17 18:01 - Objective Vital Signs: Vital Signs Temperature 98 F 07/21/17 10:00 Pulse Rate 91 H 07/21/17 10:50 Respiratory Rate 18 07/21/17 10:50 Blood Pressure 95/55 07/21/17 10:50 O2 Sat by Pulse Oximetry (%) 98 07/20/17 22:00 Constitutional: Yes: Calm, Thin Eyes: Yes: WNL HENT: Yes: WNL Neck: Yes: WNL Cardiovascular: Yes: Pulse Irregular, S1, S2 Respiratory: Yes: Wheezes (few scattered wheezes) Gastrointestinal: Yes: Normal Bowel Sounds, Soft Extremities: Yes: WNL Edema: No Labs: CBC, BMP 07/21/17 06:15 07/21/17 06:15 INR, PTT INR 1.22 (0.82-1.09) H 07/21/17 06:15 Problem List - Problems (1) Lactate blood increase Code(s): R79.89 - OTHER SPECIFIED ABNORMAL FINDINGS OF BLOOD CHEMISTRY (2) Abdominal pain Code(s): R10.9 - UNSPECIFIED ABDOMINAL PAIN (3) Acute on chronic systolic and diastolic heart failure, NYHA class 3 Code(s): I50.43 - ACUTE ON CHRONIC COMBINED SYSTOLIC AND DIASTOLIC HRT FAIL (4) CAD (coronary artery disease) Code(s): I25.10 - ATHSCL HEART DISEASE OF [place] CORONARY ARTERY W/O ANG PCTRS Qualifiers: Coronary Disease-Associated Artery/Lesion type: [place] artery [place] vs. transplanted heart: [place] heart Associated angina: without angina Qualified Code(s): I25.10 - Atherosclerotic heart disease of [place] coronary artery without angina pectoris (5) Congestive heart failure (CHF) Code(s): I50.9 - HEART FAILURE, UNSPECIFIED (6) Coronary arteriosclerosis in [place] artery Code(s): I25.10 - ATHSCL HEART DISEASE OF [place] CORONARY ARTERY W/O ANG PCTRS (7) Cough Code(s): R05 - COUGH (8) Diabetes Code(s): E11.9 - TYPE 2 DIABETES MELLITUS WITHOUT COMPLICATIONS Qualifiers: (9) ESRD on dialysis Code(s): N18.6 - END STAGE RENAL DISEASE; Z99.2 - DEPENDENCE ON RENAL DIALYSIS (10) Elevated troponin I level Code(s): R74.8 - ABNORMAL LEVELS OF OTHER SERUM ENZYMES (11) End stage kidney disease Code(s): N18.6 - END STAGE RENAL DISEASE (12) HTN (hypertension) Code(s): I10 - ESSENTIAL (PRIMARY) HYPERTENSION Qualifiers: (13) Hyperlipidemia Code(s): E78.5 - HYPERLIPIDEMIA, UNSPECIFIED Qualifiers: (14) Hypothyroidism Code(s): E03.9 - HYPOTHYROIDISM, UNSPECIFIED Qualifiers: Hypothyroidism type: unspecified Qualified Code(s): E03.9 - Hypothyroidism , unspecified (15) Pacemaker Code(s): Z95.0 - PRESENCE OF CARDIAC PACEMAKER (16) Single implantable cardioverter-defibrillator (ICD) in situ Code(s): Z95.810 - PRESENCE OF AUTOMATIC (IMPLANTABLE) CARDIAC DEFIBRILLATOR (17) Acute respiratory failure Code(s): J96.00 - ACUTE RESPIRATORY FAILURE, UNSP W HYPOXIA OR HYPERCAPNIA (18) Acute respiratory failure Code(s): J96.00 - ACUTE RESPIRATORY FAILURE, UNSP W HYPOXIA OR HYPERCAPNIA Assessment/Plan IMP ACUTE RESPIRATORY FAILURE IMPROVING CHF IMPROVING PNEUMONIA AFIB ASHD S/P STENTS CHF S/P ICD ESRD ON HD DM HTN +TROPONIN IMPROVING ELEVATED LACTATE LEVEL NORMAL PLEURAL EFFUSION TRANSUDATE PLAN BIPAP NEEDED/O2 INHALED BRONCHODILATORS HD PER RENAL ABX DR TORREZ Problem List - Problems (1) Lactate blood increase Code(s): R79.89 - OTHER SPECIFIED ABNORMAL FINDINGS OF BLOOD CHEMISTRY (2) Abdominal pain Code(s): R10.9 - UNSPECIFIED ABDOMINAL PAIN (3) Acute on chronic systolic and diastolic heart failure, NYHA class 3 Code(s): I50.43 - ACUTE ON CHRONIC COMBINED SYSTOLIC AND DIASTOLIC HRT FAIL (4) CAD (coronary artery disease) Code(s): I25.10 - ATHSCL HEART DISEASE OF [place] CORONARY ARTERY W/O ANG PCTRS Qualifiers: (5) Congestive heart failure (CHF) Code(s): I50.9 - HEART FAILURE, UNSPECIFIED (6) Coronary arteriosclerosis in [place] artery Code(s): I25.10 - ATHSCL HEART DISEASE OF [place] CORONARY ARTERY W/O ANG PCTRS (7) Cough Code(s): R05 - COUGH (8) Diabetes Code(s): E11.9 - TYPE 2 DIABETES MELLITUS WITHOUT COMPLICATIONS Qualifiers: (9) ESRD on dialysis Code(s): N18.6 - END STAGE RENAL DISEASE; Z99.2 - DEPENDENCE ON RENAL DIALYSIS (10) Elevated troponin I level Code(s): R74.8 - ABNORMAL LEVELS OF OTHER SERUM ENZYMES (11) End stage kidney disease Code(s): N18.6 - END STAGE RENAL DISEASE (12) HTN (hypertension) Code(s): I10 - ESSENTIAL (PRIMARY) HYPERTENSION Qualifiers: (13) Hyperlipidemia Code(s): E78.5 - HYPERLIPIDEMIA, UNSPECIFIED Qualifiers: (14) Hypothyroidism Code(s): E03.9 - HYPOTHYROIDISM, UNSPECIFIED Qualifiers: (15) Pacemaker Code(s): Z95.0 - PRESENCE OF CARDIAC PACEMAKER (16) Single implantable cardioverter-defibrillator (ICD) in situ Code(s): Z95.810 - PRESENCE OF AUTOMATIC (IMPLANTABLE) CARDIAC DEFIBRILLATOR (17) Acute respiratory failure Code(s): J96.00 - ACUTE RESPIRATORY FAILURE, UNSP W HYPOXIA OR HYPERCAPNIA (18) Acute respiratory failure Code(s): J96.00 - ACUTE RESPIRATORY FAILURE, UNSP W HYPOXIA OR HYPERCAPNIA
--- NOTE | 2017-07-21 11:19 | PN ---
Progress Note, Physician History of Present Illness: Cough and dyspnea improved post left thoracentesis. - Current Medication List Current Medications: Active Medications Albuterol Sulfate (Ventolin 0.083% Nebulizer Soln -) 1 amp NEB Q4H PRN PRN Reason: SHORT OF BREATH/WHEEZING Last Admin: 07/21/17 06:04 Dose: 1 amp Albuterol/Ipratropium (Duoneb -) 1 amp NEB RQID [facility] Last Admin: 07/21/17 07:36 Dose: Not Given Bacitracin (Bacitracin -) 1 applic TP DAILY [facility] Last Admin: 07/20/17 13:15 Dose: 1 applic Hydrocortisone (Hytone 1% Cream -) 1 applic TP BID [facility] Last Admin: 07/20/17 22:07 Dose: Not Given Azithromycin 500 mg/ Dextrose 250 mls @ 250 mls/hr IVPB DAILY [facility] Last Admin: 07/20/17 09:12 Dose: 250 mls/hr CEFTRIAXONE 1 G/50 ML PREMIX (Ceftriaxone 1 Gm-D5w Bag) 50 mls @ 100 mls/hr IVPB DAILY [facility] Last Admin: 07/20/17 09:12 Dose: 100 mls/hr Sodium Chloride (Normal Saline -) 250 mls @ 3,000 mls/hr IV PRN PRN PRN Reason: Hypotension Metoprolol Succinate (Toprol Xl -) 50 mg PO DAILY [facility] Last Admin: 07/20/17 09:12 Dose: 50 mg Midodrine (Proamatine -) 10 mg PO MoWeFr@1000 [facility] Last Admin: 07/21/17 06:35 Dose: 10 mg Pantoprazole Sodium (Protonix -) 20 mg PO DAILY [facility] Last Admin: 07/20/17 09:12 Dose: 20 mg Polyethylene Glycol (Miralax (For Daily Use) -) 17 gm PO DAILY PRN PRN Reason: CONSTIPATION Pregabalin (Lyrica -) 75 mg PO DAILY [facility] Last Admin: 07/20/17 09:12 Dose: 75 mg Sertraline HCl (Zoloft -) 50 mg PO DAILY [facility] Last Admin: 07/20/17 09:12 Dose: 50 mg Sevelamer Carbonate (Renvela -) 800 mg PO TIDCM [facility] Last Admin: 07/21/17 08:46 Dose: Not Given Simethicone (Mylicon -) 80 mg PO Q4H PRN PRN Reason: GAS Last Admin: 07/20/17 09:12 Dose: 80 mg Tramadol HCl (Ultram -) 50 mg PO Q6H PRN PRN Reason: PAIN LEVEL 6-10 Last Admin: 07/19/17 00:51 Dose: 50 mg Warfarin Sodium (Coumadin -) 3 mg PO DAILY@1800 [facility] Last Admin: 07/20/17 17:18 Dose: 3 mg Warfarin Sodium (Coumadin -) 2.5 mg PO ONCE@1800 ONE Stop: 07/21/17 18:01 - Objective Vital Signs: Vital Signs Temperature 98 F 07/21/17 10:00 Pulse Rate 91 H 07/21/17 10:50 Respiratory Rate 18 07/21/17 10:50 Blood Pressure 95/55 07/21/17 10:50 O2 Sat by Pulse Oximetry (%) 98 07/20/17 22:00 Constitutional: Yes: No Distress, Calm, Thin Neck: Yes: Supple Cardiovascular: Yes: Regular Rate and Rhythm Respiratory: Yes: Regular, Diminished, On Nasal O2 Gastrointestinal: Yes: Normal Bowel Sounds, Soft Edema: No Labs: CBC, BMP 07/21/17 06:15 07/21/17 06:15 INR, PTT INR 1.22 (0.82-1.09) H 07/21/17 06:15 - ....Imaging EKG: Report Reviewed (Tele: NSVT) Problem List - Problems (1) Severe calcific aortic valve stenosis Code(s): I35.0 - NONRHEUMATIC AORTIC (VALVE) STENOSIS (2) Pleural effusion Code(s): J90 - PLEURAL EFFUSION, NOT ELSEWHERE CLASSIFIED (3) Acute on chronic systolic and diastolic heart failure, NYHA class 3 Code(s): I50.43 - ACUTE ON CHRONIC COMBINED SYSTOLIC AND DIASTOLIC HRT FAIL (4) CAD (coronary artery disease) Code(s): I25.10 - ATHSCL HEART DISEASE OF [place] CORONARY ARTERY W/O ANG PCTRS Qualifiers: Coronary Disease-Associated Artery/Lesion type: [place] artery [place] vs. transplanted heart: [place] heart Associated angina: without angina Qualified Code(s): I25.10 - Atherosclerotic heart disease of [place] coronary artery without angina pectoris (5) Coronary arteriosclerosis in [place] artery Code(s): I25.10 - ATHSCL HEART DISEASE OF [place] CORONARY ARTERY W/O ANG PCTRS (6) ESRD on dialysis Code(s): N18.6 - END STAGE RENAL DISEASE; Z99.2 - DEPENDENCE ON RENAL DIALYSIS (7) Elevated troponin I level Code(s): R74.8 - ABNORMAL LEVELS OF OTHER SERUM ENZYMES (8) History of percutaneous coronary intervention Code(s): Z98.89 - OTHER SPECIFIED POSTPROCEDURAL STATES * DO NOT USE * (9) Hypothyroidism Code(s): E03.9 - HYPOTHYROIDISM, UNSPECIFIED Qualifiers: Hypothyroidism type: unspecified Qualified Code(s): E03.9 - Hypothyroidism , unspecified (10) Single implantable cardioverter-defibrillator (ICD) in situ Code(s): Z95.810 - PRESENCE OF AUTOMATIC (IMPLANTABLE) CARDIAC DEFIBRILLATOR (11) Subendocardial ischemia Code(s): I24.8 - OTHER FORMS OF ACUTE ISCHEMIC HEART DISEASE Assessment/Plan 07/17/2017 Echo: Severely decreased LV fxn LVEF 30-35%, ICD, normal RV fxn, mild MR, severe TR, mild pulm HTN, mild AR, severe [place] 0.6 cm^2, MG 16 mmHg, large effusion 1. Clinical presentation is consistent with acute on chronic LV systolic failure , pleural effusion post left thoracentesis improving 2. CAD post PCI/stent, Elevated Troponin I related to subendocardial ischemia/ demand ischemia, angina pectoris 3. VT post prophylactic ICD implantation 4. Paroxysmal atrial flutter/atrial fibrillation, [id number] score of 5 on Coumadin therapy, subtherapeutic INR 5. Severe low flow/low gradient aortic valve stenosis 6. HTN, intermittent hypotension on Midodrine 7. DM 8. Hypercholesterolemia 9. 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 Hypothyroidism 11. Anemia PLAN: 1. Continue Coumadin as per INR 2. Continue Toprol XL 50 qd 3. Continue Midodrine 10 MWF pre HD 4. UF with HD as per renal service 5. TAVR evaluation can be done as outpatient once clinically improved 6. DVT and GI prophylaxis 7. Continue bronchodilator, d/c empiric antibiotic course and O2 8. Pleural fluid is transudative, f/u pCXR 9. D/c plannng to [place]
[2017-07-21] MEDS: AZITHROMYCIN IVPB 500 MG in DEXTROSE 5%-WATER - 250 ML IVPB SCH (11:39)
[2017-07-21] MEDS: CEFTRIAXONE 1 G/50 ML PREMIX 50 ML IVPB SCH (11:39)
[2017-07-21] MEDS: PANTOPRAZOLE 20 MG TABLET (FP) PO SCH (11:41)
[2017-07-21] MEDS: SERTRALINE HCL 50 MG TABLET (FP) PO SCH (11:41)
[2017-07-21] MEDS: BACITRACIN 15 GM TUBE TOPICAL OINTMENT TP SCH (11:42)
[2017-07-21] MEDS: HYDROCORTISONE 1% TOPICAL CREAM 30 GM TUBE TP SCH ×2 (11:42→21:01)
[2017-07-21] MEDS: PREGABALIN 25 MG CAPSULE PO SCH (11:43)
--- NOTE | 2017-07-21 16:53 | PN ---
Progress Note (short form) - Note Progress Note: Renal follow up for ESRD on HD Pt seen and examined at the bedside no acute complaints s/p dialysis today with 2kg UF sob is improved overall Vital Signs Temperature 98.2 F 07/21/17 14:04 Pulse Rate 76 07/21/17 14:03 Respiratory Rate 18 07/21/17 14:03 Blood Pressure 84/60 07/21/17 14:03 O2 Sat by Pulse Oximetry (%) 96 07/21/17 16:46 Intake & Output 07/18/17 07/19/17 07/20/17 07/21/17 23:59 23:59 23:59 23:59 Intake Total 210 710 910 Balance 210 710 910 Weight 59.239 kg 57.969 kg 57.062 kg 57.697 kg NAD awake and alert no LE edema CBC, BMP 07/21/17 06:15 07/21/17 06:15 Current Medications Albuterol Sulfate (Ventolin 0.083% Nebulizer Soln -) 1 amp NEB Q4H PRN PRN Reason: SHORT OF BREATH/WHEEZING Last Admin: 07/21/17 06:04 Dose: 1 amp Albuterol/Ipratropium (Duoneb -) 1 amp NEB RQID [facility] Last Admin: 07/21/17 16:47 Dose: 1 amp Bacitracin (Bacitracin -) 1 applic TP DAILY [facility] Last Admin: 07/21/17 11:42 Dose: 1 applic Hydrocortisone (Hytone 1% Cream -) 1 applic TP BID [facility] Last Admin: 07/21/17 11:42 Dose: 1 applic Sodium Chloride (Normal Saline -) 250 mls @ 3,000 mls/hr IV PRN PRN PRN Reason: Hypotension Metoprolol Succinate (Toprol Xl -) 50 mg PO DAILY [facility] Last Admin: 07/21/17 11:41 Dose: 50 mg Midodrine (Proamatine -) 10 mg PO MoWeFr@1000 [facility] Last Admin: 07/21/17 11:29 Dose: Not Given Pantoprazole Sodium (Protonix -) 20 mg PO DAILY [facility] Last Admin: 07/21/17 11:41 Dose: 20 mg Polyethylene Glycol (Miralax (For Daily Use) -) 17 gm PO DAILY PRN PRN Reason: CONSTIPATION Pregabalin (Lyrica -) 75 mg PO DAILY [facility] Last Admin: 07/21/17 11:43 Dose: 75 mg Sertraline HCl (Zoloft -) 50 mg PO DAILY [facility] Last Admin: 07/21/17 11:41 Dose: 50 mg Sevelamer Carbonate (Renvela -) 800 mg PO TIDCM [facility] Last Admin: 07/21/17 11:41 Dose: 800 mg Simethicone (Mylicon -) 80 mg PO Q4H PRN PRN Reason: GAS Last Admin: 07/20/17 09:12 Dose: 80 mg Tramadol HCl (Ultram -) 50 mg PO Q6H PRN PRN Reason: PAIN LEVEL 6-10 Last Admin: 07/19/17 00:51 Dose: 50 mg Warfarin Sodium (Coumadin -) 3 mg PO DAILY@1800 [facility] Last Admin: 07/20/17 17:18 Dose: 3 mg Warfarin Sodium (Coumadin -) 2.5 mg PO ONCE@1800 ONE Stop: 07/21/17 18:01 89 year old woman with PMhx of ESRD on HD, Hypotension, Afib on A/C, CHF, CAD, Hypothyrodism who presented with cough and sob and found to have a unilateral pleural effusion. #Unilateral Pleural Effusion s/p thoracentesis pt is clinically improved will continue aggressive UF with Hd #ESRD on HD pt tolerated Hd with UF today #Afib on Coumadin Coumadin as per cardiology #CKD related Anemia Hgb is at goal will continue HILARIO with HD Thank you Will follow Yahir Cortez DO
[2017-07-21] MEDS ORDERED: WARFARIN NA 2.5 MG TABLET (FP) PO ONE (18:00)
[2017-07-21] MEDS: WARFARIN NA 3 MG TABLET PO SCH (18:03)
[2017-07-22] MEDS: SEVELAMER CARBONATE 800 MG TAB (FP) PO SCH ×3 (07:35→17:16)
[2017-07-22] MEDS: ALBUTEROL SO4 2.5/IPRATROPIUM 0.5 INH SOL 3 ML VIAL.NEB. NEB SCH ×4 (07:53→20:00)
[2017-07-22 10:26] LABS: INR 1.5 (0.82-1.09)
[2017-07-22] MEDS: PREGABALIN 25 MG CAPSULE PO SCH (10:31)
[2017-07-22] MEDS: PANTOPRAZOLE 20 MG TABLET (FP) PO SCH (10:32)
[2017-07-22] MEDS: SERTRALINE HCL 50 MG TABLET (FP) PO SCH ×2 (10:32→17:53)
[2017-07-22] MEDS: HYDROCORTISONE 1% TOPICAL CREAM 30 GM TUBE TP SCH ×2 (10:34→22:38)
[2017-07-22] MEDS: BACITRACIN 15 GM TUBE TOPICAL OINTMENT TP SCH (10:34)
--- NOTE | 2017-07-22 10:46 | PN ---
Progress Note, Physician History of Present Illness: PULMONARY ALERT,FEELING BETTER,-RESP DISTRESS - Current Medication List Current Medications: Active Medications Albuterol Sulfate (Ventolin 0.083% Nebulizer Soln -) 1 amp NEB Q4H PRN PRN Reason: SHORT OF BREATH/WHEEZING Last Admin: 07/21/17 06:04 Dose: 1 amp Albuterol/Ipratropium (Duoneb -) 1 amp NEB RQID [facility] Last Admin: 07/22/17 07:53 Dose: 1 amp Bacitracin (Bacitracin -) 1 applic TP DAILY [facility] Last Admin: 07/22/17 10:34 Dose: 1 applic Hydrocortisone (Hytone 1% Cream -) 1 applic TP BID [facility] Last Admin: 07/22/17 10:34 Dose: 1 applic Sodium Chloride (Normal Saline -) 250 mls @ 3,000 mls/hr IV PRN PRN PRN Reason: Hypotension Metoprolol Succinate (Toprol Xl -) 50 mg PO DAILY [facility] Last Admin: 07/22/17 10:33 Dose: 50 mg Midodrine (Proamatine -) 10 mg PO MoWeFr@1000 [facility] Last Admin: 07/21/17 11:29 Dose: Not Given Pantoprazole Sodium (Protonix -) 20 mg PO DAILY [facility] Last Admin: 07/22/17 10:32 Dose: 20 mg Polyethylene Glycol (Miralax (For Daily Use) -) 17 gm PO DAILY PRN PRN Reason: CONSTIPATION Pregabalin (Lyrica -) 75 mg PO DAILY [facility] Last Admin: 07/22/17 10:31 Dose: 75 mg Sertraline HCl (Zoloft -) 50 mg PO DAILY [facility] Last Admin: 07/22/17 10:32 Dose: 50 mg Sevelamer Carbonate (Renvela -) 800 mg PO TIDCM [facility] Last Admin: 07/22/17 07:35 Dose: 800 mg Simethicone (Mylicon -) 80 mg PO Q4H PRN PRN Reason: GAS Last Admin: 07/20/17 09:12 Dose: 80 mg Tramadol HCl (Ultram -) 50 mg PO Q6H PRN PRN Reason: PAIN LEVEL 6-10 Last Admin: 07/19/17 00:51 Dose: 50 mg Warfarin Sodium (Coumadin -) 3 mg PO DAILY@1800 [facility] Last Admin: 07/21/17 18:03 Dose: 3 mg - Objective Vital Signs: Vital Signs Temperature 97.9 F 07/22/17 06:00 Pulse Rate 70 07/22/17 06:00 Respiratory Rate 18 07/22/17 06:00 Blood Pressure 97/45 07/22/17 06:00 O2 Sat by Pulse Oximetry (%) 97 07/21/17 21:00 Constitutional: Yes: Well Nourished, Calm Eyes: Yes: WNL HENT: Yes: WNL Cardiovascular: Yes: Pulse Irregular, S1, S2 Respiratory: Yes: Rhonchi (FEW RHONCHI) Gastrointestinal: Yes: Normal Bowel Sounds, Soft Extremities: Yes: WNL Edema: No Labs: CBC, BMP 07/21/17 06:15 07/21/17 06:15 INR, PTT INR 1.50 (0.82-1.09) H 07/22/17 10:00 Problem List - Problems (1) Lactate blood increase Code(s): R79.89 - OTHER SPECIFIED ABNORMAL FINDINGS OF BLOOD CHEMISTRY (2) Abdominal pain Code(s): R10.9 - UNSPECIFIED ABDOMINAL PAIN (3) Acute on chronic systolic and diastolic heart failure, NYHA class 3 Code(s): I50.43 - ACUTE ON CHRONIC COMBINED SYSTOLIC AND DIASTOLIC HRT FAIL (4) CAD (coronary artery disease) Code(s): I25.10 - ATHSCL HEART DISEASE OF [place] CORONARY ARTERY W/O ANG PCTRS Qualifiers: Coronary Disease-Associated Artery/Lesion type: [place] artery [place] vs. transplanted heart: [place] heart Associated angina: without angina Qualified Code(s): I25.10 - Atherosclerotic heart disease of [place] coronary artery without angina pectoris (5) Congestive heart failure (CHF) Code(s): I50.9 - HEART FAILURE, UNSPECIFIED (6) Coronary arteriosclerosis in [place] artery Code(s): I25.10 - ATHSCL HEART DISEASE OF [place] CORONARY ARTERY W/O ANG PCTRS (7) Cough Code(s): R05 - COUGH (8) Diabetes Code(s): E11.9 - TYPE 2 DIABETES MELLITUS WITHOUT COMPLICATIONS Qualifiers: (9) ESRD on dialysis Code(s): N18.6 - END STAGE RENAL DISEASE; Z99.2 - DEPENDENCE ON RENAL DIALYSIS (10) Elevated troponin I level Code(s): R74.8 - ABNORMAL LEVELS OF OTHER SERUM ENZYMES (11) End stage kidney disease Code(s): N18.6 - END STAGE RENAL DISEASE (12) HTN (hypertension) Code(s): I10 - ESSENTIAL (PRIMARY) HYPERTENSION Qualifiers: (13) Hyperlipidemia Code(s): E78.5 - HYPERLIPIDEMIA, UNSPECIFIED Qualifiers: (14) Hypothyroidism Code(s): E03.9 - HYPOTHYROIDISM, UNSPECIFIED Qualifiers: Hypothyroidism type: unspecified Qualified Code(s): E03.9 - Hypothyroidism , unspecified (15) Pacemaker Code(s): Z95.0 - PRESENCE OF CARDIAC PACEMAKER (16) Single implantable cardioverter-defibrillator (ICD) in situ Code(s): Z95.810 - PRESENCE OF AUTOMATIC (IMPLANTABLE) CARDIAC DEFIBRILLATOR (17) Acute respiratory failure Code(s): J96.00 - ACUTE RESPIRATORY FAILURE, UNSP W HYPOXIA OR HYPERCAPNIA (18) Acute respiratory failure Code(s): J96.00 - ACUTE RESPIRATORY FAILURE, UNSP W HYPOXIA OR HYPERCAPNIA Assessment/Plan IMP ACUTE RESPIRATORY FAILURE IMPROVED CHF IMPROVING PNEUMONIA AFIB ASHD S/P STENTS CHF S/P ICD ESRD ON HD DM HTN +TROPONIN IMPROVING ELEVATED LACTATE LEVEL NORMAL PLEURAL EFFUSION TRANSUDATE PLAN BIPAP NEEDED/O2 INHALED BRONCHODILATORS HD PER RENAL DR TORREZ Problem List - Problems (1) Lactate blood increase Code(s): R79.89 - OTHER SPECIFIED ABNORMAL FINDINGS OF BLOOD CHEMISTRY (2) Abdominal pain Code(s): R10.9 - UNSPECIFIED ABDOMINAL PAIN (3) Acute on chronic systolic and diastolic heart failure, NYHA class 3 Code(s): I50.43 - ACUTE ON CHRONIC COMBINED SYSTOLIC AND DIASTOLIC HRT FAIL (4) CAD (coronary artery disease) Code(s): I25.10 - ATHSCL HEART DISEASE OF [place] CORONARY ARTERY W/O ANG PCTRS Qualifiers: (5) Congestive heart failure (CHF) Code(s): I50.9 - HEART FAILURE, UNSPECIFIED (6) Coronary arteriosclerosis in [place] artery Code(s): I25.10 - ATHSCL HEART DISEASE OF [place] CORONARY ARTERY W/O ANG PCTRS (7) Cough Code(s): R05 - COUGH (8) Diabetes Code(s): E11.9 - TYPE 2 DIABETES MELLITUS WITHOUT COMPLICATIONS Qualifiers: (9) ESRD on dialysis Code(s): N18.6 - END STAGE RENAL DISEASE; Z99.2 - DEPENDENCE ON RENAL DIALYSIS (10) Elevated troponin I level Code(s): R74.8 - ABNORMAL LEVELS OF OTHER SERUM ENZYMES (11) End stage kidney disease Code(s): N18.6 - END STAGE RENAL DISEASE (12) HTN (hypertension) Code(s): I10 - ESSENTIAL (PRIMARY) HYPERTENSION Qualifiers: (13) Hyperlipidemia Code(s): E78.5 - HYPERLIPIDEMIA, UNSPECIFIED Qualifiers: (14) Hypothyroidism Code(s): E03.9 - HYPOTHYROIDISM, UNSPECIFIED Qualifiers: (15) Pacemaker Code(s): Z95.0 - PRESENCE OF CARDIAC PACEMAKER (16) Single implantable cardioverter-defibrillator (ICD) in situ Code(s): Z95.810 - PRESENCE OF AUTOMATIC (IMPLANTABLE) CARDIAC DEFIBRILLATOR (17) Acute respiratory failure Code(s): J96.00 - ACUTE RESPIRATORY FAILURE, UNSP W HYPOXIA OR HYPERCAPNIA (18) Acute respiratory failure Code(s): J96.00 - ACUTE RESPIRATORY FAILURE, UNSP W HYPOXIA OR HYPERCAPNIA
--- NOTE | 2017-07-22 11:02 | PN ---
Progress Note, Physician Chief Complaint: Events noted Not in distress History of Present Illness: Patient was seen and examined. Awake and alert. Chart was reviewed Denies chest pain or palpitation Wanting to be discharged but awaiting transfer to [facility] - Current Medication List Current Medications: Active Medications Albuterol Sulfate (Ventolin 0.083% Nebulizer Soln -) 1 amp NEB Q4H PRN PRN Reason: SHORT OF BREATH/WHEEZING Last Admin: 07/21/17 06:04 Dose: 1 amp Albuterol/Ipratropium (Duoneb -) 1 amp NEB RQID [facility] Last Admin: 07/22/17 07:53 Dose: 1 amp Bacitracin (Bacitracin -) 1 applic TP DAILY [facility] Last Admin: 07/22/17 10:34 Dose: 1 applic Hydrocortisone (Hytone 1% Cream -) 1 applic TP BID [facility] Last Admin: 07/22/17 10:34 Dose: 1 applic Sodium Chloride (Normal Saline -) 250 mls @ 3,000 mls/hr IV PRN PRN PRN Reason: Hypotension Metoprolol Succinate (Toprol Xl -) 50 mg PO DAILY [facility] Last Admin: 07/22/17 10:51 Dose: Not Given Midodrine (Proamatine -) 10 mg PO MoWeFr@1000 [facility] Last Admin: 07/21/17 11:29 Dose: Not Given Pantoprazole Sodium (Protonix -) 20 mg PO DAILY [facility] Last Admin: 07/22/17 10:32 Dose: 20 mg Polyethylene Glycol (Miralax (For Daily Use) -) 17 gm PO DAILY PRN PRN Reason: CONSTIPATION Pregabalin (Lyrica -) 75 mg PO DAILY [facility] Last Admin: 07/22/17 10:31 Dose: 75 mg Sertraline HCl (Zoloft -) 50 mg PO DAILY [facility] Last Admin: 07/22/17 10:32 Dose: 50 mg Sevelamer Carbonate (Renvela -) 800 mg PO TIDCM [facility] Last Admin: 07/22/17 07:35 Dose: 800 mg Simethicone (Mylicon -) 80 mg PO Q4H PRN PRN Reason: GAS Last Admin: 07/20/17 09:12 Dose: 80 mg Tramadol HCl (Ultram -) 50 mg PO Q6H PRN PRN Reason: PAIN LEVEL 6-10 Last Admin: 07/19/17 00:51 Dose: 50 mg Warfarin Sodium (Coumadin -) 3 mg PO DAILY@1800 [facility] Last Admin: 07/21/17 18:03 Dose: 3 mg - Objective Vital Signs: Vital Signs Temperature 97.9 F 07/22/17 06:00 Pulse Rate 70 07/22/17 06:00 Respiratory Rate 18 07/22/17 06:00 Blood Pressure 97/45 07/22/17 06:00 O2 Sat by Pulse Oximetry (%) 97 07/21/17 21:00 Constitutional: Yes: Well Nourished Eyes: Yes: PERRL HENT: Yes: Atraumatic Neck: Yes: Supple Cardiovascular: Yes: Regular Rate and Rhythm, Murmur (2/6 LUIS MIGUEL), S1, S2 Respiratory: Yes: CTA Bilaterally Gastrointestinal: Yes: Normal Bowel Sounds, Soft. No: Tenderness Edema: No Additional Findings/Remarks: - Review of Systems Constitutional: denies: Chills, Fever Cardiovascular: denies: Chest Pain, Palpitations, Shortness of Breath Respiratory: denies: Cough, Hemoptysis, Orthopnea, PND, SOB, SOB on Exertion Gastrointestinal: denies: Abdominal Pain, Constipation, Diarrhea, Melena, Nausea , Rectal Bleeding, Vomiting Genitourinary: denies urologic symptoms Neurological: denies: Dizziness, Headache, Seizure, Syncope Labs: CBC, BMP 07/21/17 06:15 07/21/17 06:15 INR, PTT INR 1.50 (0.82-1.09) H 07/22/17 10:00 Problem List - Problems (1) Acute respiratory failure Code(s): J96.00 - ACUTE RESPIRATORY FAILURE, UNSP W HYPOXIA OR HYPERCAPNIA (2) Pleural effusion Code(s): J90 - PLEURAL EFFUSION, NOT ELSEWHERE CLASSIFIED (3) Severe calcific aortic valve stenosis Code(s): I35.0 - NONRHEUMATIC AORTIC (VALVE) STENOSIS (4) AV fistula thrombosis Code(s): T82.868A - THROMBOSIS DUE TO VASCULAR PROSTH DEV/GRFT, INIT Qualifiers: Encounter type: initial encounter Qualified Code(s): T82.868A - Thrombosis due to vascular prosthetic devices, implants and grafts, initial encounter (5) Acute on chronic systolic and diastolic heart failure, NYHA class 3 Code(s): I50.43 - ACUTE ON CHRONIC COMBINED SYSTOLIC AND DIASTOLIC HRT FAIL (6) Anemia Code(s): D64.9 - ANEMIA, UNSPECIFIED Qualifiers: Chronic kidney disease stage: on chronic dialysis (7) Atrial flutter Code(s): I48.92 - UNSPECIFIED ATRIAL FLUTTER Qualifiers: Atrial flutter type: typical Qualified Code(s): I48.3 - Typical atrial flutter (8) CAD (coronary artery disease) Code(s): I25.10 - ATHSCL HEART DISEASE OF [place] CORONARY ARTERY W/O ANG PCTRS Qualifiers: Coronary Disease-Associated Artery/Lesion type: [place] artery [place] vs. transplanted heart: [place] heart Associated angina: without angina Qualified Code(s): I25.10 - Atherosclerotic heart disease of [place] coronary artery without angina pectoris (9) Demand ischemia Code(s): I24.8 - OTHER FORMS OF ACUTE ISCHEMIC HEART DISEASE (10) Diabetes Code(s): E11.9 - TYPE 2 DIABETES MELLITUS WITHOUT COMPLICATIONS Qualifiers: (11) ESRD on hemodialysis Code(s): N18.6 - END STAGE RENAL DISEASE; Z99.2 - DEPENDENCE ON RENAL DIALYSIS (12) End stage kidney disease Code(s): N18.6 - END STAGE RENAL DISEASE (13) GERD (gastroesophageal reflux disease) Code(s): K21.9 - GASTRO-ESOPHAGEAL REFLUX DISEASE WITHOUT ESOPHAGITIS Qualifiers: Esophagitis presence: with esophagitis Qualified Code(s): K21.0 - Gastro- esophageal reflux disease with esophagitis (14) Generalized weakness Code(s): R53.1 - WEAKNESS (15) HTN (hypertension) Code(s): I10 - ESSENTIAL (PRIMARY) HYPERTENSION Qualifiers: (16) History of percutaneous coronary intervention Code(s): Z98.89 - OTHER SPECIFIED POSTPROCEDURAL STATES * DO NOT USE * (17) Hyperlipidemia Code(s): E78.5 - HYPERLIPIDEMIA, UNSPECIFIED Qualifiers: (18) Hypothyroidism Code(s): E03.9 - HYPOTHYROIDISM, UNSPECIFIED Qualifiers: Hypothyroidism type: unspecified Qualified Code(s): E03.9 - Hypothyroidism , unspecified (19) Single implantable cardioverter-defibrillator (ICD) in situ Code(s): Z95.810 - PRESENCE OF AUTOMATIC (IMPLANTABLE) CARDIAC DEFIBRILLATOR Assessment/Plan 1. Clinical presentation is consistent with acute on chronic LV systolic failure , pleural effusion post left thoracentesis with tiny apical pneumothorax - transudative 2. CAD post PCI/stent, Elevated Troponin I related to subendocardial ischemia/ demand ischemia, angina pectoris 3. Post prophylactic ICD implantation 4. Paroxysmal atrial flutter/atrial fibrillation, [id number] score of 5 on Coumadin therapy, subtherapeutic INR 5. Severe low flow/low gradient aortic valve stenosis 6. HTN, intermittent hypotension on Midodrine 7. DM 8. Hypercholesterolemia 9. 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 Hypothyroidism 11. Anemia PLAN: 1. Continue Coumadin as per INR 2. Continue Toprol XL 50 qd 3. Continue Midodrine 10 MWF pre HD 4. HD as per renal service 5. TAVR evaluation can be done as outpatient once clinically improved 6. DVT and GI prophylaxis 7. Continue bronchodilator, empiric antibiotic course Further plans are to follow. Await transfer to SNF/rehab Len Guevara MD
--- NOTE | 2017-07-22 12:21 | PN ---
Progress Note (short form) - Note Progress Note: Renal follow up for ESRD on HD Pt seen and examined at the bedside awake and alert no acute complaints s/p dialysis yesterday w/o complication Vital Signs Temperature 97.9 F 07/22/17 06:00 Pulse Rate 70 07/22/17 06:00 Respiratory Rate 18 07/22/17 06:00 Blood Pressure 97/45 07/22/17 06:00 O2 Sat by Pulse Oximetry (%) 92 L 07/22/17 12:06 Intake & Output 07/19/17 07/20/17 07/21/17 07/22/17 23:59 23:59 23:59 23:59 Intake Total 710 910 740 260 Balance 710 910 740 260 Weight 57.969 kg 57.062 kg 57.697 kg 55.792 kg NAD awake and alert no LE edema CBC, BMP 07/21/17 06:15 07/21/17 06:15 Current Medications Albuterol Sulfate (Ventolin 0.083% Nebulizer Soln -) 1 amp NEB Q4H PRN PRN Reason: SHORT OF BREATH/WHEEZING Last Admin: 07/21/17 06:04 Dose: 1 amp Albuterol/Ipratropium (Duoneb -) 1 amp NEB RQID [facility] Last Admin: 07/22/17 11:25 Dose: 1 amp Bacitracin (Bacitracin -) 1 applic TP DAILY [facility] Last Admin: 07/22/17 10:34 Dose: 1 applic Hydrocortisone (Hytone 1% Cream -) 1 applic TP BID [facility] Last Admin: 07/22/17 10:34 Dose: 1 applic Sodium Chloride (Normal Saline -) 250 mls @ 3,000 mls/hr IV PRN PRN PRN Reason: Hypotension Metoprolol Succinate (Toprol Xl -) 50 mg PO DAILY [facility] Last Admin: 07/22/17 10:51 Dose: Not Given Midodrine (Proamatine -) 10 mg PO MoWeFr@1000 [facility] Last Admin: 07/21/17 11:29 Dose: Not Given Pantoprazole Sodium (Protonix -) 20 mg PO DAILY [facility] Last Admin: 07/22/17 10:32 Dose: 20 mg Polyethylene Glycol (Miralax (For Daily Use) -) 17 gm PO DAILY PRN PRN Reason: CONSTIPATION Pregabalin (Lyrica -) 75 mg PO DAILY [facility] Last Admin: 07/22/17 10:31 Dose: 75 mg Sertraline HCl (Zoloft -) 50 mg PO DAILY [facility] Last Admin: 07/22/17 10:32 Dose: 50 mg Sevelamer Carbonate (Renvela -) 800 mg PO TIDCM [facility] Last Admin: 07/22/17 07:35 Dose: 800 mg Simethicone (Mylicon -) 80 mg PO Q4H PRN PRN Reason: GAS Last Admin: 07/20/17 09:12 Dose: 80 mg Tramadol HCl (Ultram -) 50 mg PO Q6H PRN PRN Reason: PAIN LEVEL 6-10 Last Admin: 07/19/17 00:51 Dose: 50 mg Warfarin Sodium (Coumadin -) 3 mg PO DAILY@1800 [facility] Last Admin: 07/21/17 18:03 Dose: 3 mg 89 year old woman with PMhx of ESRD on HD, Hypotension, Afib on A/C, CHF, CAD, Hypothyrodism who presented with cough and sob and found to have a unilateral pleural effusion. #Unilateral Pleural Effusion s/p thoracentesis pt is clinically improved UF as tolerated with HD repeat CXR shows effusion but unclear if this is delayed improvement on CXR as pt feels and looks better clinically #ESRD on HD s/p dialysis yesterday no acute indication for dialysis today #Afib on Coumadin Coumadin as per cardiology #CKD related Anemia Hgb is at goal will continue HILARIO with HD Yahir Cortez DO
[2017-07-22] MEDS: WARFARIN NA 3 MG TABLET PO SCH (17:16)
--- NOTE | 2017-07-22 19:42 | PN ---
Progress Note, Physician Chief Complaint: s/p thoracentesis feels well has cough== productive -- better family at bedside OOB to chair - Current Medication List Current Medications: Active Medications Albuterol Sulfate (Ventolin 0.083% Nebulizer Soln -) 1 amp NEB Q4H PRN PRN Reason: SHORT OF BREATH/WHEEZING Last Admin: 07/21/17 06:04 Dose: 1 amp Albuterol/Ipratropium (Duoneb -) 1 amp NEB RQID [facility] Last Admin: 07/22/17 16:00 Dose: 1 amp Bacitracin (Bacitracin -) 1 applic TP DAILY [facility] Last Admin: 07/22/17 10:34 Dose: 1 applic Hydrocortisone (Hytone 1% Cream -) 1 applic TP BID [facility] Last Admin: 07/22/17 10:34 Dose: 1 applic Sodium Chloride (Normal Saline -) 250 mls @ 3,000 mls/hr IV PRN PRN PRN Reason: Hypotension Metoprolol Succinate (Toprol Xl -) 50 mg PO DAILY [facility] Last Admin: 07/22/17 10:51 Dose: Not Given Midodrine (Proamatine -) 10 mg PO MoWeFr@1000 [facility] Last Admin: 07/21/17 11:29 Dose: Not Given Pantoprazole Sodium (Protonix -) 20 mg PO DAILY [facility] Last Admin: 07/22/17 10:32 Dose: 20 mg Polyethylene Glycol (Miralax (For Daily Use) -) 17 gm PO DAILY PRN PRN Reason: CONSTIPATION Pregabalin (Lyrica -) 75 mg PO DAILY [facility] Last Admin: 07/22/17 10:31 Dose: 75 mg Sertraline HCl (Zoloft -) 50 mg PO DAILY [facility] Last Admin: 07/22/17 17:53 Dose: 50 mg Sevelamer Carbonate (Renvela -) 800 mg PO TIDCM [facility] Last Admin: 07/22/17 17:16 Dose: 800 mg Simethicone (Mylicon -) 80 mg PO Q4H PRN PRN Reason: GAS Last Admin: 07/20/17 09:12 Dose: 80 mg Tramadol HCl (Ultram -) 50 mg PO Q6H PRN PRN Reason: PAIN LEVEL 6-10 Last Admin: 07/19/17 00:51 Dose: 50 mg Warfarin Sodium (Coumadin -) 3 mg PO DAILY@1800 [facility] Last Admin: 07/22/17 17:16 Dose: 3 mg - Objective Vital Signs: Vital Signs Temperature 98.0 F 07/22/17 17:00 Pulse Rate 87 07/22/17 17:00 Respiratory Rate 18 07/22/17 17:00 Blood Pressure 106/54 07/22/17 17:00 O2 Sat by Pulse Oximetry (%) 92 L 07/22/17 12:06 Constitutional: Yes: No Distress, Calm Cardiovascular: Yes: Pulse Irregular Respiratory: Yes: Diminished, Rales Gastrointestinal: Yes: Normal Bowel Sounds, Soft. No: Tenderness Edema: No Labs: CBC, BMP 07/21/17 06:15 07/21/17 06:15 INR, PTT INR 1.50 (0.82-1.09) H 07/22/17 10:00 Problem List - Problems (1) Acute respiratory failure Code(s): J96.00 - ACUTE RESPIRATORY FAILURE, UNSP W HYPOXIA OR HYPERCAPNIA (2) Lactate blood increase Code(s): R79.89 - OTHER SPECIFIED ABNORMAL FINDINGS OF BLOOD CHEMISTRY (3) Pleural effusion Code(s): J90 - PLEURAL EFFUSION, NOT ELSEWHERE CLASSIFIED (4) Acute on chronic systolic and diastolic heart failure, NYHA class 3 Code(s): I50.43 - ACUTE ON CHRONIC COMBINED SYSTOLIC AND DIASTOLIC HRT FAIL (5) Atrial flutter Code(s): I48.92 - UNSPECIFIED ATRIAL FLUTTER Qualifiers: Atrial flutter type: typical Qualified Code(s): I48.3 - Typical atrial flutter (6) Diabetes Code(s): E11.9 - TYPE 2 DIABETES MELLITUS WITHOUT COMPLICATIONS Qualifiers: (7) ESRD on hemodialysis Code(s): N18.6 - END STAGE RENAL DISEASE; Z99.2 - DEPENDENCE ON RENAL DIALYSIS (8) Elevated troponin I level Code(s): R74.8 - ABNORMAL LEVELS OF OTHER SERUM ENZYMES Assessment/Plan PLAN s/p thoracentesis HD per renal continue with meds effusion-- transudate-- cytology negative for malignancy iv antibiotics for pneumonia increase Warfarin dose-- INR subtherapeutic OOB daily PT eval
[2017-07-23 07:51] LABS: INR 1.93 (0.82-1.09); PROTHROMBIN TIME (PATIENT) 21.8 SEC (9.98-11.88)
[2017-07-23] MEDS: ALBUTEROL SO4 2.5/IPRATROPIUM 0.5 INH SOL 3 ML VIAL.NEB. NEB SCH ×4 (08:32→20:45)
[2017-07-23] MEDS: PANTOPRAZOLE 20 MG TABLET (FP) PO SCH (09:17)
[2017-07-23] MEDS: SERTRALINE HCL 50 MG TABLET (FP) PO SCH (09:17)
[2017-07-23] MEDS: PREGABALIN 25 MG CAPSULE PO SCH (09:17)
[2017-07-23] MEDS: SEVELAMER CARBONATE 800 MG TAB (FP) PO SCH ×3 (09:17→17:54)
[2017-07-23] MEDS: HYDROCORTISONE 1% TOPICAL CREAM 30 GM TUBE TP SCH ×2 (09:18→21:47)
[2017-07-23] MEDS: BACITRACIN 15 GM TUBE TOPICAL OINTMENT TP SCH (09:18)
--- NOTE | 2017-07-23 09:25 | PN ---
Progress Note, Physician Chief Complaint: Events noted Not in distress History of Present Illness: Patient was seen and examined. Awake and alert. Chart was reviewed Denies chest pain or palpitation - Current Medication List Current Medications: Active Medications Albuterol Sulfate (Ventolin 0.083% Nebulizer Soln -) 1 amp NEB Q4H PRN PRN Reason: SHORT OF BREATH/WHEEZING Last Admin: 07/21/17 06:04 Dose: 1 amp Albuterol/Ipratropium (Duoneb -) 1 amp NEB RQID [facility] Last Admin: 07/23/17 08:32 Dose: 1 amp Bacitracin (Bacitracin -) 1 applic TP DAILY [facility] Last Admin: 07/23/17 09:18 Dose: 1 applic Hydrocortisone (Hytone 1% Cream -) 1 applic TP BID [facility] Last Admin: 07/23/17 09:18 Dose: 1 applic Sodium Chloride (Normal Saline -) 250 mls @ 3,000 mls/hr IV PRN PRN PRN Reason: Hypotension Metoprolol Succinate (Toprol Xl -) 50 mg PO DAILY [facility] Last Admin: 07/23/17 09:17 Dose: 50 mg Midodrine (Proamatine -) 10 mg PO MoWeFr@1000 [facility] Last Admin: 07/21/17 11:29 Dose: Not Given Pantoprazole Sodium (Protonix -) 20 mg PO DAILY [facility] Last Admin: 07/23/17 09:17 Dose: 20 mg Polyethylene Glycol (Miralax (For Daily Use) -) 17 gm PO DAILY PRN PRN Reason: CONSTIPATION Pregabalin (Lyrica -) 75 mg PO DAILY [facility] Last Admin: 07/23/17 09:17 Dose: 75 mg Sertraline HCl (Zoloft -) 50 mg PO DAILY [facility] Last Admin: 07/23/17 09:17 Dose: 50 mg Sevelamer Carbonate (Renvela -) 800 mg PO TIDCM [facility] Last Admin: 07/23/17 09:17 Dose: 800 mg Simethicone (Mylicon -) 80 mg PO Q4H PRN PRN Reason: GAS Last Admin: 07/20/17 09:12 Dose: 80 mg Tramadol HCl (Ultram -) 50 mg PO Q6H PRN PRN Reason: PAIN LEVEL 6-10 Last Admin: 07/19/17 00:51 Dose: 50 mg Warfarin Sodium (Coumadin -) 4 mg PO DAILY@1800 [facility] - Objective Vital Signs: Vital Signs Temperature 98.1 F 07/23/17 03:00 Pulse Rate 84 07/23/17 06:00 Respiratory Rate 22 07/23/17 06:00 Blood Pressure 105/64 07/23/17 06:00 O2 Sat by Pulse Oximetry (%) 98 07/23/17 09:21 Constitutional: Yes: Well Nourished Eyes: Yes: PERRL HENT: Yes: Atraumatic Neck: Yes: Supple Cardiovascular: Yes: Regular Rate and Rhythm, Murmur (LUIS MIGUEL), S1, S2 Respiratory: Yes: CTA Bilaterally Gastrointestinal: Yes: Normal Bowel Sounds, Soft. No: Tenderness Edema: No Additional Findings/Remarks: - Review of Systems Constitutional: denies: Chills, Fever Cardiovascular: denies: Chest Pain, Palpitations, Shortness of Breath Respiratory: denies: Cough, Hemoptysis, Orthopnea, PND, SOB, SOB on Exertion Gastrointestinal: denies: Abdominal Pain, Constipation, Diarrhea, Melena, Nausea , Rectal Bleeding, Vomiting Genitourinary: denies urologic symptoms Neurological: denies: Dizziness, Headache, Seizure, Syncope Labs: CBC, BMP 07/21/17 06:15 07/21/17 06:15 INR, PTT INR 1.93 (0.82-1.09) H 07/23/17 05:05 Problem List - Problems (1) Acute respiratory failure Code(s): J96.00 - ACUTE RESPIRATORY FAILURE, UNSP W HYPOXIA OR HYPERCAPNIA (2) Pleural effusion Code(s): J90 - PLEURAL EFFUSION, NOT ELSEWHERE CLASSIFIED (3) Severe calcific aortic valve stenosis Code(s): I35.0 - NONRHEUMATIC AORTIC (VALVE) STENOSIS (4) AV fistula thrombosis Code(s): T82.868A - THROMBOSIS DUE TO VASCULAR PROSTH DEV/GRFT, INIT Qualifiers: Encounter type: initial encounter Qualified Code(s): T82.868A - Thrombosis due to vascular prosthetic devices, implants and grafts, initial encounter (5) Acute on chronic systolic and diastolic heart failure, NYHA class 3 Code(s): I50.43 - ACUTE ON CHRONIC COMBINED SYSTOLIC AND DIASTOLIC HRT FAIL (6) Anemia Code(s): D64.9 - ANEMIA, UNSPECIFIED Qualifiers: Chronic kidney disease stage: on chronic dialysis (7) Atrial flutter Code(s): I48.92 - UNSPECIFIED ATRIAL FLUTTER Qualifiers: Atrial flutter type: typical Qualified Code(s): I48.3 - Typical atrial flutter (8) CAD (coronary artery disease) Code(s): I25.10 - ATHSCL HEART DISEASE OF [place] CORONARY ARTERY W/O ANG PCTRS Qualifiers: Coronary Disease-Associated Artery/Lesion type: [place] artery [place] vs. transplanted heart: [place] heart Associated angina: without angina Qualified Code(s): I25.10 - Atherosclerotic heart disease of [place] coronary artery without angina pectoris (9) Demand ischemia Code(s): I24.8 - OTHER FORMS OF ACUTE ISCHEMIC HEART DISEASE (10) Diabetes Code(s): E11.9 - TYPE 2 DIABETES MELLITUS WITHOUT COMPLICATIONS Qualifiers: Diabetes mellitus type: type 2 Diabetes mellitus square shear operator insulin use: without square shear operator use Diabetes mellitus complication status: without complication Qualified Code(s): E11.9 - Type 2 diabetes mellitus without complications (11) ESRD on hemodialysis Code(s): N18.6 - END STAGE RENAL DISEASE; Z99.2 - DEPENDENCE ON RENAL DIALYSIS (12) End stage kidney disease Code(s): N18.6 - END STAGE RENAL DISEASE (13) GERD (gastroesophageal reflux disease) Code(s): K21.9 - GASTRO-ESOPHAGEAL REFLUX DISEASE WITHOUT ESOPHAGITIS Qualifiers: Esophagitis presence: with esophagitis Qualified Code(s): K21.0 - Gastro- esophageal reflux disease with esophagitis (14) Generalized weakness Code(s): R53.1 - WEAKNESS (15) HTN (hypertension) Code(s): I10 - ESSENTIAL (PRIMARY) HYPERTENSION Qualifiers: Hypertension type: essential hypertension (16) History of percutaneous coronary intervention Code(s): Z98.89 - OTHER SPECIFIED POSTPROCEDURAL STATES * DO NOT USE * (17) Hyperlipidemia Code(s): E78.5 - HYPERLIPIDEMIA, UNSPECIFIED Qualifiers: Hyperlipidemia type: pure hypercholesterolemia (18) Hypothyroidism Code(s): E03.9 - HYPOTHYROIDISM, UNSPECIFIED Qualifiers: Hypothyroidism type: unspecified Qualified Code(s): E03.9 - Hypothyroidism , unspecified (19) Single implantable cardioverter-defibrillator (ICD) in situ Code(s): Z95.810 - PRESENCE OF AUTOMATIC (IMPLANTABLE) CARDIAC DEFIBRILLATOR Assessment/Plan 1. Clinical presentation is consistent with acute on chronic LV systolic failure , pleural effusion post left thoracentesis with tiny apical pneumothorax - transudative 2. CAD post PCI/stent, Elevated Troponin I related to subendocardial ischemia/ demand ischemia, angina pectoris 3. Post prophylactic ICD implantation 4. Paroxysmal atrial flutter/atrial fibrillation, [id number] score of 5 on Coumadin therapy, subtherapeutic INR 5. Severe low flow/low gradient aortic valve stenosis 6. HTN, intermittent hypotension on Midodrine 7. DM 8. Hypercholesterolemia 9. 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 Hypothyroidism 11. Anemia PLAN: 1. Continue Coumadin as per INR 2. Continue Toprol XL 50 qd 3. Continue Midodrine 10 MWF pre HD 4. HD as per renal service 5. TAVR evaluation can be done as outpatient once clinically improved 6. DVT and GI prophylaxis Further plans are to follow. Await transfer to SNF/rehab Len Guevara MD
--- NOTE | 2017-07-23 10:54 | PN ---
Progress Note, Physician History of Present Illness: PULMONARY ALERT,NAD,-C/O SOB,-CP. - Current Medication List Current Medications: Active Medications Albuterol Sulfate (Ventolin 0.083% Nebulizer Soln -) 1 amp NEB Q4H PRN PRN Reason: SHORT OF BREATH/WHEEZING Last Admin: 07/21/17 06:04 Dose: 1 amp Albuterol/Ipratropium (Duoneb -) 1 amp NEB RQID [facility] Last Admin: 07/23/17 08:32 Dose: 1 amp Bacitracin (Bacitracin -) 1 applic TP DAILY [facility] Last Admin: 07/23/17 09:18 Dose: 1 applic Hydrocortisone (Hytone 1% Cream -) 1 applic TP BID [facility] Last Admin: 07/23/17 09:18 Dose: 1 applic Sodium Chloride (Normal Saline -) 250 mls @ 3,000 mls/hr IV PRN PRN PRN Reason: Hypotension Metoprolol Succinate (Toprol Xl -) 50 mg PO DAILY [facility] Last Admin: 07/23/17 09:17 Dose: 50 mg Midodrine (Proamatine -) 10 mg PO MoWeFr@1000 [facility] Last Admin: 07/21/17 11:29 Dose: Not Given Pantoprazole Sodium (Protonix -) 20 mg PO DAILY [facility] Last Admin: 07/23/17 09:17 Dose: 20 mg Polyethylene Glycol (Miralax (For Daily Use) -) 17 gm PO DAILY PRN PRN Reason: CONSTIPATION Pregabalin (Lyrica -) 75 mg PO DAILY [facility] Last Admin: 07/23/17 09:17 Dose: 75 mg Sertraline HCl (Zoloft -) 50 mg PO DAILY [facility] Last Admin: 07/23/17 09:17 Dose: 50 mg Sevelamer Carbonate (Renvela -) 800 mg PO TIDCM [facility] Last Admin: 07/23/17 09:17 Dose: 800 mg Simethicone (Mylicon -) 80 mg PO Q4H PRN PRN Reason: GAS Last Admin: 07/20/17 09:12 Dose: 80 mg Tramadol HCl (Ultram -) 50 mg PO Q6H PRN PRN Reason: PAIN LEVEL 6-10 Last Admin: 07/19/17 00:51 Dose: 50 mg Warfarin Sodium (Coumadin -) 4 mg PO DAILY@1800 [facility] - Objective Vital Signs: Vital Signs Temperature 98.6 F 07/23/17 09:49 Pulse Rate 86 07/23/17 09:49 Respiratory Rate 22 07/23/17 09:49 Blood Pressure 105/66 07/23/17 09:49 O2 Sat by Pulse Oximetry (%) 95 07/23/17 09:49 Constitutional: Yes: Well Nourished, Calm Eyes: Yes: WNL HENT: Yes: WNL Neck: Yes: WNL Cardiovascular: Yes: Pulse Irregular, S1, S2 Respiratory: Yes: Rhonchi (SCATTERED RHONCHI) Gastrointestinal: Yes: Normal Bowel Sounds, Soft Extremities: Yes: WNL Edema: No Labs: CBC, BMP INR, PTT INR 1.93 (0.82-1.09) H 07/23/17 05:05 Problem List - Problems (1) Lactate blood increase Code(s): R79.89 - OTHER SPECIFIED ABNORMAL FINDINGS OF BLOOD CHEMISTRY (2) Abdominal pain Code(s): R10.9 - UNSPECIFIED ABDOMINAL PAIN (3) Acute on chronic systolic and diastolic heart failure, NYHA class 3 Code(s): I50.43 - ACUTE ON CHRONIC COMBINED SYSTOLIC AND DIASTOLIC HRT FAIL (4) CAD (coronary artery disease) Code(s): I25.10 - ATHSCL HEART DISEASE OF [place] CORONARY ARTERY W/O ANG PCTRS Qualifiers: Coronary Disease-Associated Artery/Lesion type: [place] artery [place] vs. transplanted heart: [place] heart Associated angina: without angina Qualified Code(s): I25.10 - Atherosclerotic heart disease of [place] coronary artery without angina pectoris (5) Congestive heart failure (CHF) Code(s): I50.9 - HEART FAILURE, UNSPECIFIED (6) Coronary arteriosclerosis in [place] artery Code(s): I25.10 - ATHSCL HEART DISEASE OF [place] CORONARY ARTERY W/O ANG PCTRS (7) Cough Code(s): R05 - COUGH (8) Diabetes Code(s): E11.9 - TYPE 2 DIABETES MELLITUS WITHOUT COMPLICATIONS Qualifiers: (9) ESRD on dialysis Code(s): N18.6 - END STAGE RENAL DISEASE; Z99.2 - DEPENDENCE ON RENAL DIALYSIS (10) Elevated troponin I level Code(s): R74.8 - ABNORMAL LEVELS OF OTHER SERUM ENZYMES (11) End stage kidney disease Code(s): N18.6 - END STAGE RENAL DISEASE (12) HTN (hypertension) Code(s): I10 - ESSENTIAL (PRIMARY) HYPERTENSION Qualifiers: (13) Hyperlipidemia Code(s): E78.5 - HYPERLIPIDEMIA, UNSPECIFIED Qualifiers: (14) Hypothyroidism Code(s): E03.9 - HYPOTHYROIDISM, UNSPECIFIED Qualifiers: Hypothyroidism type: unspecified Qualified Code(s): E03.9 - Hypothyroidism , unspecified (15) Pacemaker Code(s): Z95.0 - PRESENCE OF CARDIAC PACEMAKER (16) Single implantable cardioverter-defibrillator (ICD) in situ Code(s): Z95.810 - PRESENCE OF AUTOMATIC (IMPLANTABLE) CARDIAC DEFIBRILLATOR (17) Acute respiratory failure Code(s): J96.00 - ACUTE RESPIRATORY FAILURE, UNSP W HYPOXIA OR HYPERCAPNIA (18) Acute respiratory failure Code(s): J96.00 - ACUTE RESPIRATORY FAILURE, UNSP W HYPOXIA OR HYPERCAPNIA Assessment/Plan IMP ACUTE RESPIRATORY FAILURE IMPROVED CHF IMPROVING PNEUMONIA AFIB ASHD S/P STENTS CHF S/P ICD ESRD ON HD DM HTN +TROPONIN IMPROVING ELEVATED LACTATE LEVEL NORMAL PLEURAL EFFUSION TRANSUDATE PLAN BIPAP NEEDED/O2 INHALED BRONCHODILATORS HD PER RENAL SNF PT AC DR TORREZ Problem List - Problems (1) Lactate blood increase Code(s): R79.89 - OTHER SPECIFIED ABNORMAL FINDINGS OF BLOOD CHEMISTRY (2) Abdominal pain Code(s): R10.9 - UNSPECIFIED ABDOMINAL PAIN (3) Acute on chronic systolic and diastolic heart failure, NYHA class 3 Code(s): I50.43 - ACUTE ON CHRONIC COMBINED SYSTOLIC AND DIASTOLIC HRT FAIL (4) CAD (coronary artery disease) Code(s): I25.10 - ATHSCL HEART DISEASE OF [place] CORONARY ARTERY W/O ANG PCTRS Qualifiers: (5) Congestive heart failure (CHF) Code(s): I50.9 - HEART FAILURE, UNSPECIFIED (6) Coronary arteriosclerosis in [place] artery Code(s): I25.10 - ATHSCL HEART DISEASE OF [place] CORONARY ARTERY W/O ANG PCTRS (7) Cough Code(s): R05 - COUGH (8) Diabetes Code(s): E11.9 - TYPE 2 DIABETES MELLITUS WITHOUT COMPLICATIONS Qualifiers: (9) ESRD on dialysis Code(s): N18.6 - END STAGE RENAL DISEASE; Z99.2 - DEPENDENCE ON RENAL DIALYSIS (10) Elevated troponin I level Code(s): R74.8 - ABNORMAL LEVELS OF OTHER SERUM ENZYMES (11) End stage kidney disease Code(s): N18.6 - END STAGE RENAL DISEASE (12) HTN (hypertension) Code(s): I10 - ESSENTIAL (PRIMARY) HYPERTENSION Qualifiers: (13) Hyperlipidemia Code(s): E78.5 - HYPERLIPIDEMIA, UNSPECIFIED Qualifiers: (14) Hypothyroidism Code(s): E03.9 - HYPOTHYROIDISM, UNSPECIFIED Qualifiers: (15) Pacemaker Code(s): Z95.0 - PRESENCE OF CARDIAC PACEMAKER (16) Single implantable cardioverter-defibrillator (ICD) in situ Code(s): Z95.810 - PRESENCE OF AUTOMATIC (IMPLANTABLE) CARDIAC DEFIBRILLATOR (17) Acute respiratory failure Code(s): J96.00 - ACUTE RESPIRATORY FAILURE, UNSP W HYPOXIA OR HYPERCAPNIA (18) Acute respiratory failure Code(s): J96.00 - ACUTE RESPIRATORY FAILURE, UNSP W HYPOXIA OR HYPERCAPNIA
--- NOTE | 2017-07-23 11:36 | PN ---
Progress Note, Physician Chief Complaint: s/p thoracentesis feels well has cough== productive -- better OOB to chair - Current Medication List Current Medications: Active Medications Albuterol Sulfate (Ventolin 0.083% Nebulizer Soln -) 1 amp NEB Q4H PRN PRN Reason: SHORT OF BREATH/WHEEZING Last Admin: 07/21/17 06:04 Dose: 1 amp Albuterol/Ipratropium (Duoneb -) 1 amp NEB RQID [facility] Last Admin: 07/23/17 11:24 Dose: 1 amp Bacitracin (Bacitracin -) 1 applic TP DAILY [facility] Last Admin: 07/23/17 09:18 Dose: 1 applic Hydrocortisone (Hytone 1% Cream -) 1 applic TP BID [facility] Last Admin: 07/23/17 09:18 Dose: 1 applic Sodium Chloride (Normal Saline -) 250 mls @ 3,000 mls/hr IV PRN PRN PRN Reason: Hypotension Metoprolol Succinate (Toprol Xl -) 50 mg PO DAILY [facility] Last Admin: 07/23/17 09:17 Dose: 50 mg Midodrine (Proamatine -) 10 mg PO MoWeFr@1000 [facility] Last Admin: 07/21/17 11:29 Dose: Not Given Pantoprazole Sodium (Protonix -) 20 mg PO DAILY [facility] Last Admin: 07/23/17 09:17 Dose: 20 mg Polyethylene Glycol (Miralax (For Daily Use) -) 17 gm PO DAILY PRN PRN Reason: CONSTIPATION Pregabalin (Lyrica -) 75 mg PO DAILY [facility] Last Admin: 07/23/17 09:17 Dose: 75 mg Sertraline HCl (Zoloft -) 50 mg PO DAILY [facility] Last Admin: 07/23/17 09:17 Dose: 50 mg Sevelamer Carbonate (Renvela -) 800 mg PO TIDCM [facility] Last Admin: 07/23/17 09:17 Dose: 800 mg Simethicone (Mylicon -) 80 mg PO Q4H PRN PRN Reason: GAS Last Admin: 07/20/17 09:12 Dose: 80 mg Tramadol HCl (Ultram -) 50 mg PO Q6H PRN PRN Reason: PAIN LEVEL 6-10 Last Admin: 07/19/17 00:51 Dose: 50 mg Warfarin Sodium (Coumadin -) 4 mg PO DAILY@1800 [facility] - Objective Vital Signs: Vital Signs Temperature 98.6 F 07/23/17 09:49 Pulse Rate 86 07/23/17 09:49 Respiratory Rate 22 07/23/17 09:49 Blood Pressure 105/66 07/23/17 09:49 O2 Sat by Pulse Oximetry (%) 95 07/23/17 09:49 Constitutional: Yes: No Distress Cardiovascular: Yes: Pulse Irregular Respiratory: Yes: Diminished, Rhonchi Gastrointestinal: Yes: Normal Bowel Sounds, Soft. No: Tenderness Edema: No Labs: CBC, BMP 07/21/17 06:15 07/21/17 06:15 INR, PTT INR 1.93 (0.82-1.09) H 07/23/17 05:05 Problem List - Problems (1) Acute respiratory failure Code(s): J96.00 - ACUTE RESPIRATORY FAILURE, UNSP W HYPOXIA OR HYPERCAPNIA (2) Lactate blood increase Code(s): R79.89 - OTHER SPECIFIED ABNORMAL FINDINGS OF BLOOD CHEMISTRY (3) Pleural effusion Code(s): J90 - PLEURAL EFFUSION, NOT ELSEWHERE CLASSIFIED (4) Acute on chronic systolic and diastolic heart failure, NYHA class 3 Code(s): I50.43 - ACUTE ON CHRONIC COMBINED SYSTOLIC AND DIASTOLIC HRT FAIL (5) Atrial flutter Code(s): I48.92 - UNSPECIFIED ATRIAL FLUTTER Qualifiers: Atrial flutter type: typical Qualified Code(s): I48.3 - Typical atrial flutter (6) Diabetes Code(s): E11.9 - TYPE 2 DIABETES MELLITUS WITHOUT COMPLICATIONS Qualifiers: (7) ESRD on hemodialysis Code(s): N18.6 - END STAGE RENAL DISEASE; Z99.2 - DEPENDENCE ON RENAL DIALYSIS (8) Elevated troponin I level Code(s): R74.8 - ABNORMAL LEVELS OF OTHER SERUM ENZYMES Assessment/Plan PLAN s/p thoracentesis HD per renal continue with meds effusion-- transudate-- cytology negative for malignancy iv antibiotics dc Warfarin per INR OOB daily PT eval DC PLAN FOR TOMORROW AFTER DIALYSIS
[2017-07-23] MEDS ORDERED: WARFARIN NA 3 MG TABLET PO SCH (18:00)
[2017-07-23] MEDS ORDERED: WARFARIN NA 2 MG TABLET (UD) PO SCH (18:00)
[2017-07-24] MEDS: ALBUTEROL SO4 0.083% IH SOL 2.5 MG/3 ML VIAL.NEB. NEB PRN (00:10)
[2017-07-24] MEDS ORDERED: guaiFENesin 200 MG/10 ML 10 ML UNIT-DOSE CUPS PO ONE (03:27)
[2017-07-24 06:56] LABS: INR 2.35 (0.82-1.09); PROTHROMBIN TIME (PATIENT) 26.6 SEC (9.98-11.88)
[2017-07-24 07:27] LABS: HEMATOCRIT 31.3 % (32.4-45.2); HEMOGLOBIN 9.7 GM/dL (10.7-15.3); MCH 29.3 pg (25.7-33.7); MCHC 31.2 g/dl (32.0-36.0); MEAN CELL VOLUME 93.9 fl (80-96); MEAN PLT VOLUME 9.2 fl (7.5-11.1); PLATELET COUNT 109 K/MM3 (134-434); RBC 3.33 M/mm3 (3.60-5.2); RDW 20.7 % (11.6-15.6); WHITE BLOOD COUNT 5.8 K/mm3 (4.0-10.0)
[2017-07-24] MEDS: ALBUTEROL SO4 2.5/IPRATROPIUM 0.5 INH SOL 3 ML VIAL.NEB. NEB SCH ×3 (07:55→15:34)
[2017-07-24] MEDS: SEVELAMER CARBONATE 800 MG TAB (FP) PO SCH ×2 (07:56→13:59)
[2017-07-24 07:57] LABS: ALBUMIN 2.9 g/dl (3.4-5.0); ANION GAP 14 (8-16); BILIRUBIN,TOTAL 0.7 mg/dL (0.2-1.0); BLOOD UREA NITROGEN 36 mg/dL (7-18); CALCIUM 8.4 mg/dL (8.5-10.1); CHLORIDE 101 mmol/L (98-107); CO2 24 mmol/L (21-32); CREATININE 5.7 mg/dL (0.55-1.02); GLUCOSE,RANDOM 109 mg/dL (74-106); PHOSPHOROUS 4.2 mg/dL (2.5-4.9); SGPT/ALT 11 U/L (12-78); SODIUM 139 mmol/L (136-145); TOT PROT 7.5 g/dl (6.4-8.2)
[2017-07-24 07:58] LABS: ALK PHOS 259 U/L (45-117)
[2017-07-24 08:03] LABS: POTASSIUM 4.7 mmol/L (3.5-5.1); SGOT/AST 22 U/L (15-37)
[2017-07-24] MEDS: traMADol HCL 50 MG TABLET PO PRN (09:15)
--- NOTE | 2017-07-24 09:49 | PN ---
Progress Note, Physician Chief Complaint: Being dialyzed Not in distress History of Present Illness: Patient was seen and examined. Awake and alert. Chart was reviewed Denies chest pain, SOB or palpitation - Current Medication List Current Medications: Active Medications Albumin Human (Albumin Human 25%) 12.5 gm IVPB Q30M [facility] Stop: 07/24/17 08:31 Albuterol Sulfate (Ventolin 0.083% Nebulizer Soln -) 1 amp NEB Q4H PRN PRN Reason: SHORT OF BREATH/WHEEZING Last Admin: 07/24/17 00:10 Dose: 1 amp Albuterol/Ipratropium (Duoneb -) 1 amp NEB RQID [facility] Last Admin: 07/24/17 07:55 Dose: 1 amp Bacitracin (Bacitracin -) 1 applic TP DAILY [facility] Last Admin: 07/23/17 09:18 Dose: 1 applic Epoetin Keith (Epogen -) 10,000 unit IVPUSH ONCE ONE Stop: 07/24/17 06:47 Hydrocortisone (Hytone 1% Cream -) 1 applic TP BID [facility] Last Admin: 07/23/17 21:47 Dose: 1 applic Sodium Chloride (Normal Saline -) 250 mls @ 3,000 mls/hr IV PRN PRN PRN Reason: Hypotension Sodium Chloride (Normal Saline -) 250 mls @ 3,000 mls/hr IV PRN PRN PRN Reason: hypotension with dialysis Metoprolol Succinate (Toprol Xl -) 50 mg PO DAILY [facility] Last Admin: 07/23/17 09:17 Dose: 50 mg Midodrine (Proamatine -) 10 mg PO MoWeFr@1000 [facility] Last Admin: 07/21/17 11:29 Dose: Not Given Pantoprazole Sodium (Protonix -) 20 mg PO DAILY [facility] Last Admin: 07/23/17 09:17 Dose: 20 mg Polyethylene Glycol (Miralax (For Daily Use) -) 17 gm PO DAILY PRN PRN Reason: CONSTIPATION Last Admin: 07/23/17 17:55 Dose: 17 gm Pregabalin (Lyrica -) 75 mg PO DAILY [facility] Last Admin: 07/23/17 09:17 Dose: 75 mg Sertraline HCl (Zoloft -) 50 mg PO DAILY [facility] Last Admin: 07/23/17 09:17 Dose: 50 mg Sevelamer Carbonate (Renvela -) 800 mg PO TIDCM [facility] Last Admin: 07/24/17 07:56 Dose: 800 mg Simethicone (Mylicon -) 80 mg PO Q4H PRN PRN Reason: GAS Last Admin: 07/20/17 09:12 Dose: 80 mg Tramadol HCl (Ultram -) 50 mg PO Q6H PRN PRN Reason: PAIN LEVEL 6-10 Last Admin: 07/24/17 09:15 Dose: 50 mg Warfarin Sodium (Coumadin -) 3 mg PO DAILY@1800 [facility] Last Admin: 07/23/17 17:54 Dose: 3 mg - Objective Vital Signs: Vital Signs Temperature 97.7 F 07/24/17 02:00 Pulse Rate 80 07/24/17 07:55 Respiratory Rate 22 07/24/17 05:54 Blood Pressure 119/64 07/24/17 05:54 O2 Sat by Pulse Oximetry (%) 98 07/24/17 07:55 HENT: Yes: Atraumatic Neck: Yes: Supple Cardiovascular: Yes: Regular Rate and Rhythm, Murmur (LUIS MIGUEL), S1, S2 Respiratory: Yes: Diminished Gastrointestinal: Yes: Normal Bowel Sounds, Soft. No: Tenderness Edema: No Additional Findings/Remarks: - Review of Systems Constitutional: denies: Chills, Fever Cardiovascular: denies: Chest Pain, Palpitations, Shortness of Breath Respiratory: denies: Cough, Hemoptysis, Orthopnea, PND, SOB, SOB on Exertion Gastrointestinal: denies: Abdominal Pain, Constipation, Diarrhea, Melena, Nausea , Rectal Bleeding, Vomiting Genitourinary: denies urologic symptoms Neurological: denies: Dizziness, Headache, Seizure, Syncope Labs: CBC, BMP 07/24/17 06:35 07/24/17 07:30 INR, PTT INR 2.35 (0.82-1.09) H 07/24/17 06:05 Problem List - Problems (1) Acute respiratory failure Code(s): J96.00 - ACUTE RESPIRATORY FAILURE, UNSP W HYPOXIA OR HYPERCAPNIA (2) Pleural effusion Code(s): J90 - PLEURAL EFFUSION, NOT ELSEWHERE CLASSIFIED (3) Severe calcific aortic valve stenosis Code(s): I35.0 - NONRHEUMATIC AORTIC (VALVE) STENOSIS (4) AV fistula thrombosis Code(s): T82.868A - THROMBOSIS DUE TO VASCULAR PROSTH DEV/GRFT, INIT Qualifiers: Encounter type: initial encounter Qualified Code(s): T82.868A - Thrombosis due to vascular prosthetic devices, implants and grafts, initial encounter (5) Acute on chronic systolic and diastolic heart failure, NYHA class 3 Code(s): I50.43 - ACUTE ON CHRONIC COMBINED SYSTOLIC AND DIASTOLIC HRT FAIL (6) Anemia Code(s): D64.9 - ANEMIA, UNSPECIFIED Qualifiers: Chronic kidney disease stage: on chronic dialysis (7) Atrial flutter Code(s): I48.92 - UNSPECIFIED ATRIAL FLUTTER Qualifiers: Atrial flutter type: typical Qualified Code(s): I48.3 - Typical atrial flutter (8) CAD (coronary artery disease) Code(s): I25.10 - ATHSCL HEART DISEASE OF [place] CORONARY ARTERY W/O ANG PCTRS Qualifiers: Coronary Disease-Associated Artery/Lesion type: [place] artery [place] vs. transplanted heart: [place] heart Associated angina: without angina Qualified Code(s): I25.10 - Atherosclerotic heart disease of [place] coronary artery without angina pectoris (9) Demand ischemia Code(s): I24.8 - OTHER FORMS OF ACUTE ISCHEMIC HEART DISEASE (10) Diabetes Code(s): E11.9 - TYPE 2 DIABETES MELLITUS WITHOUT COMPLICATIONS Qualifiers: Diabetes mellitus type: type 2 Diabetes mellitus buttermaker helper insulin use: without [place] [facility] use Diabetes mellitus complication status: without complication Qualified Code(s): E11.9 - Type 2 diabetes mellitus without complications (11) ESRD on hemodialysis Code(s): N18.6 - END STAGE RENAL DISEASE; Z99.2 - DEPENDENCE ON RENAL DIALYSIS (12) End stage kidney disease Code(s): N18.6 - END STAGE RENAL DISEASE (13) GERD (gastroesophageal reflux disease) Code(s): K21.9 - GASTRO-ESOPHAGEAL REFLUX DISEASE WITHOUT ESOPHAGITIS Qualifiers: Esophagitis presence: with esophagitis Qualified Code(s): K21.0 - Gastro- esophageal reflux disease with esophagitis (14) Generalized weakness Code(s): R53.1 - WEAKNESS (15) HTN (hypertension) Code(s): I10 - ESSENTIAL (PRIMARY) HYPERTENSION Qualifiers: Hypertension type: essential hypertension Qualified Code(s): I10 - Essential (primary) hypertension (16) History of percutaneous coronary intervention Code(s): Z98.89 - OTHER SPECIFIED POSTPROCEDURAL STATES * DO NOT USE * (17) Hyperlipidemia Code(s): E78.5 - HYPERLIPIDEMIA, UNSPECIFIED Qualifiers: Hyperlipidemia type: pure hypercholesterolemia Qualified Code(s): E78.00 - Pure hypercholesterolemia, unspecified; E78.0 - Pure hypercholesterolemia (18) Hypothyroidism Code(s): E03.9 - HYPOTHYROIDISM, UNSPECIFIED Qualifiers: Hypothyroidism type: unspecified Qualified Code(s): E03.9 - Hypothyroidism , unspecified (19) Single implantable cardioverter-defibrillator (ICD) in situ Code(s): Z95.810 - PRESENCE OF AUTOMATIC (IMPLANTABLE) CARDIAC DEFIBRILLATOR Assessment/Plan 1. Clinical presentation is consistent with acute on chronic LV systolic failure , pleural effusion post left thoracentesis with tiny apical pneumothorax - transudative 2. CAD post PCI/stent, Elevated Troponin I related to subendocardial ischemia/ demand ischemia, angina pectoris 3. Post prophylactic ICD implantation 4. Paroxysmal atrial flutter/atrial fibrillation, [id number] score of 5 on Coumadin therapy, subtherapeutic INR 5. Severe low flow/low gradient aortic valve stenosis 6. HTN, intermittent hypotension on Midodrine 7. DM 8. Hypercholesterolemia 9. 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 Hypothyroidism 11. Anemia PLAN: 1. Continue Coumadin as per INR 2. Continue Toprol XL 50 qd 3. Continue Midodrine 10 MWF pre HD 4. HD as per renal service 5. TAVR evaluation can be done as outpatient once clinically improved 6. DVT and GI prophylaxis 7. SNF placement Further plans are to follow. Await transfer to SNF/rehab Len Guevara MD
[2017-07-24] MEDS ORDERED: PT OWN MED DRAWER 7, Y5N ONE (10:11)
[2017-07-24] MEDS: MIDODRINE HCL 5 MG TABLET PO SCH (10:12)
[2017-07-24] MEDS ORDERED: SODIUM CHLORIDE 250 ML IV PRN (11:02)
--- NOTE | 2017-07-24 11:07 | DS ---
Physical Examination Vital Signs: Vital Signs Temperature 97.7 F 07/24/17 02:00 Pulse Rate 80 07/24/17 07:55 Respiratory Rate 22 07/24/17 05:54 Blood Pressure 119/64 07/24/17 05:54 O2 Sat by Pulse Oximetry (%) 94 L 07/24/17 09:00 Findings/Remarks: Patient seen and examined today. Currently being dialyzed Feels much better Mild dry cough otherwise okay denies chest pain Afebrile Constitutional: Yes: No Distress, Calm Neck: Yes: Supple Cardiovascular: Yes: Pulse Irregular. No: Regular Rate and Rhythm Respiratory: Yes: Diminished Gastrointestinal: Yes: Soft Edema: No Neurological: Yes: Alert Labs: CBC, BMP 07/24/17 06:35 07/24/17 07:30 Discharge Summary Reason For Visit: COUGH/PLEURAL EFFUSION Current Active Problems Acute respiratory failure (Acute) Acute respiratory failure (Acute) Lactate blood increase (Acute) Pleural effusion (Acute) Severe calcific aortic valve stenosis (Acute) Hospital Course: patient admitted for shortness of breath. Found to have large pleural effusion/Pneumonia and CHF Treated with antibiotics. Patient underwent thoracocentesis--- fluid transudate. Dialyzed Cardiology/pulmonary followed Now much better. Echo also done--- showed severe global hypokinesia--and ejection fraction around 30%. we will discharge her today--after dialysis. Medications reconciled. need to monitor INR closely at home. Patient in agreement. I also have discussed plan in detail With the family a few days ago. Discussed with nursing staff also. Condition: Improved - Instructions Referrals: Norma Oropeza MD [Primary Care Provider] - Disposition: [facility] - Home Medications Comprehensive Discharge Medication List: Ambulatory Orders Levothyroxine [Synthroid -] 100 mcg PO DAILY 10/11/12 Metoprolol Succinate [Toprol XL -] 50 mg PO ASDIR 03/09/15 Acetaminophen [Tylenol .Regular Strength -] 650 mg PO Q6H PRN #0 tablet Simethicone [Mylicon -] 80 mg PO Q4H PRN #60 tab.chew 03/23/16 Sertraline HCl [Zoloft -] 50 mg PO DAILY 07/12/16 Warfarin Sodium [Coumadin] 2 mg PO DAILY #30 tablet 08/07/16 Folic Acid/Vit B Complex and C [Cassie-Mahendra Tablet] 0.8 mg PO DAILY 09/28/16 Ipratropium 0.02% Nebulizer [Atrovent 0.02% Nebulizer -] 1 neb NEB TID 09/28/16 Omeprazole 20 mg PO DAILY 05/12/17 Hydrocortisone 1% Cream [Hytone 1% Cream -] 1 applic TP BID 05/13/17 Polyethylene Glycol 3350 [Miralax 119 gm Btl -] 17 gm PO DAILY PRN 05/13/17 Pregabalin [Lyrica] 75 mg PO DAILY 05/13/17 Zolpidem Tartrate [Ambien] 5 mg PO HS 05/13/17 Midodrine HCl [Proamatine -] 10 mg PO MoWeFr@1000 tablet 05/15/17 Sevelamer Carbonate [Renvela -] 800 mg PO TIDCM 07/15/17 Albuterol 0.083% Nebulizer Aidee [Ventolin 0.083% Nebulizer Soln -] 1 amp NEB Q4H PRN amp 07/24/17 Bacitracin - [Bacitracin Topical Ointment -] 1 applic TP DAILY tube 07/24/17
[2017-07-24] MEDS ORDERED: EPOETIN ALFA 10,000 UNIT/1 ML VIAL IVPUSH ONE (11:30)
[2017-07-24] MEDS: ALBUMIN HUMAN 25% 12.5 GM/50 ML VIAL IVPB SCH ×4 (12:09→13:24)
[2017-07-24] MEDS: PREGABALIN 25 MG CAPSULE PO SCH (13:59)
[2017-07-24] MEDS: PANTOPRAZOLE 20 MG TABLET (FP) PO SCH (13:59)
[2017-07-24] MEDS: SERTRALINE HCL 50 MG TABLET (FP) PO SCH (13:59)
[2017-07-24] MEDS: BACITRACIN 15 GM TUBE TOPICAL OINTMENT TP SCH (14:04)
[2017-07-24] MEDS: HYDROCORTISONE 1% TOPICAL CREAM 30 GM TUBE TP SCH (14:04)
[2017-07-24 14:05] VITALS: BP 114/62; PULSE 84
[2017-07-24 15:03] VITALS: TEMP 98.3
== END 2017-07-24 16:53 | DRG 291 ==
LOC: JER 14:03 → JERBED 17:57 → J4W 20:40
PROVIDERS: ADMIT Internal Medicine; ATTEND Internal Medicine
PROC: 5A09557 Assistance with Respiratory Ventilation, Greater than 96 Consecutive Hours, Continuous Positive Airway Pressure (ICD-10-PCS; 2017-07-17)
PROC: 0W9B3ZZ Drainage of Left Pleural Cavity, Percutaneous Approach (ICD-10-PCS; principal; 2017-07-18)
PROC: 5A1D90Z Performance of Urinary Filtration, Continuous, Greater than 18 hours Per Day (ICD-10-PCS; 2017-07-24)
DX: I13.2 Hypertensive heart and chronic kidney disease with heart failure and with stage 5 chronic kidney disease, or end stage renal disease (principal); J96.00 Acute respiratory failure, unspecified whether with hypoxia or hypercapnia; J18.9 Pneumonia, unspecified organism; N18.6 End stage renal disease; I50.43 Acute on chronic combined systolic (congestive) and diastolic (congestive) heart failure; J90 Pleural effusion, not elsewhere classified; I48.92 Unspecified atrial flutter; I24.8 Other forms of acute ischemic heart disease; I48.91 Unspecified atrial fibrillation; I25.10 Atherosclerotic heart disease of native coronary artery without angina pectoris; Z98.61 Coronary angioplasty status; E78.5 Hyperlipidemia, unspecified; E03.9 Hypothyroidism, unspecified; Z95.0 Presence of cardiac pacemaker; I35.0 Nonrheumatic aortic (valve) stenosis; D64.9 Anemia, unspecified; K21.9 Gastro-esophageal reflux disease without esophagitis; D63.1 Anemia in chronic kidney disease; G62.9 Polyneuropathy, unspecified; E11.22 Type 2 diabetes mellitus with diabetic chronic kidney disease; I50.84 End stage heart failure; Z99.2 Dependence on renal dialysis
CPT/HCPCS: 36415; 36600; 71045-TC-FY; 71250-TC; 76942; 80048; 80053; 82042; 82150; 82375; 82438; 82550; 82803; 82945; 83036; 83050; 83605; 83615; 83880; 84100; 84157; 84311; 84443; 84478; 84484; 85025; 85027; 85610; 86704; 86706; 86708; 86850; 86900; 86901; 87040; 87070; 87075; 87102; 87116; 87205; 87206; 87210; 87340; 88108; 88305-TC; 89051; 93005; 93010; 93306-TC; 94640; 94660; 97116-GP; 97161-GP; 99285-25; J0885; J1644; P9047